=== PATIENT | female | born 1970 | race African-American/Black ===

== ENCOUNTER 2017-05-23 20:50 | Emergency (ER) | payer MEDICAID, SELFPAY ==
[2017-05-23 20:52] VITALS: BP 108/67; PULSE 94; RESP 14; TEMP 37.1; O2SAT 95; BMI 22.4
[2017-05-23] MEDS: LORazepam 1 MG Tablet PO (22:04)
[2017-05-23 22:36] LABS: Bacteria 0 SEEN /hpf (None Seen); Mucous, Urine 0 SEEN /hpf (<or=2+); Red Blood Cells-Urine 0 SEEN /hpf (0-5); Squamous Epithelial Cells - UA 0 SEEN /hpf (5-10); White Blood Cells 0 SEEN /hpf (0-5)
[2017-05-23 22:37] LABS: Color, Urine Yellow (Yellow); Glucose, Dipstick Normal (Normal); Ketone-Dipstick Negative (Negative); Leukocyte Esterase-Dipstick Negative /ul (Negative); Nitrite-Dipstick Negative (Negative); Occult Blood-Urine 25 /ul (Negative); Protein-Dipstick Negative (Negative); Specific Gravity, Urine 1.015 (1.002-1.030); Urine Bilirubin Dipstick Negative (Negative); Urine Clarity Clear (Clear); Urine Urobilinogen 1 mg/dl (Normal); Urine pH 6.5 (5.0 - 8.0)
--- NOTE | 2017-05-23 23:02 | CT_ITS ---
STUDY: CT ABDOMEN AND PELVIS WITHOUT CONTRAST REASON FOR EXAM: Female, 46 years old. Left flank pain, hematuria RADIATION DOSAGE (If Supplied By Facility): CTDIvol = ( 6.40 ) mGy, DLP = ( 297.34 ) mGycm TECHNIQUE: Transaxial images were obtained from the dome of the diaphragm to the symphysis pubis without oral contrast, and without intravenous contrast. Sagittal and coronal images were reconstructed. Individualized dose optimization techniques were used for this CT. COMPARISON: September 14, 2016. FINDINGS: The visualized lung bases are unremarkable. The visualized portions of the heart are within normal limits. Stable 1.2 cm probable cyst in the liver. Normal gallbladder and extrahepatic biliary system. Normal spleen. Normal pancreas. Normal bilateral adrenal glands. Stable probable extrarenal pelvis of the kidneys. No renal stones. Normal visualized stomach. Normal small intestine. Normal colon. The appendix is visualized and appears normal. Normal abdominal aorta. Normal inferior vena cava. Normal retroperitoneum. Normal urinary bladder. Normal abdominal wall. Normal osseous structures. CT/Abdomen/Pelvis without Cont IMPRESSION: Stable probable hepatic cyst. No hydronephrosis or renal calculi. Probable prominent extrarenal pelvis of the kidneys. Electronically Signed: Andreas Yo DO at 23:49 EDT Tel [phone], Service support ,
--- NOTE | 2017-05-24 00:24 | ED.VISSUMM ---
- ER Visit Summary Date of Service: 05/24/17 Chief Complaint: Blood in urine History of Present Illness: The patient is a 46 F who states that she has been feeling well for about a week. She notes some nausea. She notes some back discomfort mostly in the left side. She also states she seen some intermittent blood. She also has urinary frequency and is now having urinary incontinence. She states she has had several C-sections and hysterectomy. She is also states that as a child she had a ureteral/bladder surgery that she does not know exactly what they did. She went to the urgent care tonight they checked her urine and said that she had protein and blood in the urine sent to the emergency department. Physical Examination: Afebrile vital signs are stable Gen: Well-nourished well-developed Head: Normocephalic atraumatic Eyes: Perrl EOMI ENT: TMs clear no rhinorrhea moist mucous membranes Neck: Supple no lymphadenopathy no JVD nontender CVS: Regular rate rhythm no murmurs normal S1-S2 Respiratory: No distress clear to auscultation bilaterally chest nontender Abdomen: Soft nontender nondistended normal bowel sounds no masses Back: Nontender Extremity: Nontender no edema Skin: Normal color no rash Neuro: alert orientated ?3 CN II-XII intact normal strength sensation reflexes gait cerebellar Psych: Normal affect normal mood Test Results: Urinalysis is normal. CT abdomen pelvis does not demonstrate any acute findings Emergency Department Course and Treatment: I explained to the patient the difference between the DIP urine and a formal UA. She notes understanding. Given her urinary incontinence that seems to be worsening I suggested she follow-up with urology. She plans on seeing one that her friend is seen in the vagina. Impression: 1. Urinary incontinence This note was generated with [employer] dictation software. It may contain incorrect words, spelling, and punctuation that were not noted in review of the chart prior to signing ED Disposition - Plan for ED Patient: Disposition: Home or Assisted Living Chief Complaint: Flank Pain Instructions: ED Bladder Instability Female Referrals: Kaylin Correia, NIKA-C [Primary Care Provider] - As soon as possible
[2017-05-24 00:36] VITALS: RESP 16
== END 2017-05-24 00:36 | disposition home or self-care (01) ==
PROVIDERS: Emergency Provider Emergency Medicine; Family Provider Nurse Practitioner Family; PCP Nurse Practitioner Family
DX: R32 Unspecified urinary incontinence (principal); R11.0 Nausea; M54.9 Dorsalgia, unspecified; R35.0 Frequency of micturition; F41.9 Anxiety disorder, unspecified; M79.7 Fibromyalgia; Z90.710 Acquired absence of both cervix and uterus; Z79.82 Long term (current) use of aspirin; Z79.899 Other long term (current) drug therapy; Z72.0 Tobacco use
CPT/HCPCS: 74176; 81001; 99283

== ENCOUNTER 2017-05-30 03:39 | Emergency (ER) | payer MEDICAID, SELFPAY ==
[2017-05-30 03:40] VITALS: BP 118/69; PULSE 82; RESP 17; TEMP 36.4; O2SAT 99; BMI 24.7
--- NOTE | 2017-05-30 03:58 | ED.VISSUMM ---
- ER Visit Summary Date of Service: 05/30/17 Chief Complaint: I think I am going through withdrawal History of Present Illness: The patient is a 46 F who presents with concern for benzodiazepine withdrawal. She takes Klonopin. She states that she has been out for 2 days. She last had 60 tablets filled in February. She takes 0.5 mg per day. She has been out for 2 days because she missed her appointment with the counseling center. Today she felt anxious and shaky. She had a anxiety-induced seizure. 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 A family member was looking online and read about benzodiazepine withdrawal potential being life-threatening so EMS was called. The patient reports nausea and diarrhea over the last couple of days. Review of systems otherwise negative. No fever chest pain shortness of breath. Physical Examination: Afebrile vitals are normal normal blood pressure normal heart rate Skin normal no diaphoresis Alert and oriented she does not appear confused she is speaking clearly Patient is anxious and tearful Heart regular rate and rhythm Lungs are clear Abdomen soft Test Results: Not indicated Emergency Department Course and Treatment: Patient has been out of her Klonopin for 2 days and presents with normal vital signs and a benign physical examination. She is on a low dose at home. Based on clinical presentation I do not believe she has an acute benzodiazepine withdrawal. In regards to her seizures she does report a history of pseudoseizures which have been triggered by stress or anxiety. She does not have an epileptic disorder. There was no tongue biting or incontinence. She was given a dose of Klonopin here and advised to call the counseling center this morning. She understands to return for new or worsening symptoms. Treatment Plan: [] Disposition: Discharge Impression: Anxiety Pseudoseizures This note was generated with [employer] dictation software. It may contain incorrect words, spelling, and punctuation that were not noted in review of the chart prior to signing ED Disposition - Plan for ED Patient: Chief Complaint: Seizure Referrals: Kaylin Correia NP-C [Primary Care Provider] -
--- NOTE | 2017-05-30 04:01 | DCINST.ED_ITS ---
ED Disposition - Plan for ED Patient: Chief Complaint: Seizure Instructions: ED Panic Attack Referrals: Kaylin Correia, [employer]-C [Primary Care Provider] -
--- NOTE | 2017-05-30 04:01 | ED.DCSUM_ITS ---
- ER Visit Summary Date of Service: 05/30/17 Chief Complaint: I think I am going through withdrawal History of Present Illness: The patient is a 46 F who presents with concern for benzodiazepine withdrawal. She takes Klonopin. She states that she has been out for 2 days. She last had 60 tablets filled in February. She takes 0.5 mg per day. She has been out for 2 days because she missed her appointment with the counseling center. Today she felt anxious and shaky. She had a anxiety- induced seizure. 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 A family member was looking online and read about benzodiazepine withdrawal potential being life-threatening so EMS was called. The patient reports nausea and diarrhea over the last couple of days. Review of systems otherwise negative. No fever chest pain shortness of breath. Physical Examination: Afebrile vitals are normal normal blood pressure normal heart rate Skin normal no diaphoresis Alert and oriented she does not appear confused she is speaking clearly Patient is anxious and tearful Heart regular rate and rhythm Lungs are clear Abdomen soft Test Results: Not indicated Emergency Department Course and Treatment: Patient has been out of her Klonopin for 2 days and presents with normal vital signs and a benign physical examination. She is on a low dose at home. Based on clinical presentation I do not believe she has an acute benzodiazepine withdrawal. In regards to her seizures she does report a history of pseudoseizures which have been triggered by stress or anxiety. She does not have an epileptic disorder. There was no tongue biting or incontinence. She was given a dose of Klonopin here and advised to call the counseling center this morning. She understands to return for new or worsening symptoms. Treatment Plan: [] Disposition: Discharge Impression: Anxiety Pseudoseizures This note was generated with [employer] dictation software. It may contain incorrect words, spelling, and punctuation that were not noted in review of the chart prior to signing ED Disposition - Plan for ED Patient: Chief Complaint: Seizure Referrals: Kaylin Correia NP-C [Primary Care Provider] -
--- NOTE | 2017-05-30 04:01 | ED.DEP ---
ED Disposition - Plan for ED Patient: Chief Complaint: Seizure Instructions: ED Panic Attack Referrals: Kaylin Correia, REEL REPAIRER-C [Primary Care Provider] -
[2017-05-30] MEDS: clonazePAM 0.5 MG Tablet PO (04:12)
[2017-05-30 04:13] VITALS: BP 106/75; PULSE 83; RESP 32; O2SAT 96
== END 2017-05-30 04:28 | disposition home or self-care (01) ==
LOC: ED 04:20
PROVIDERS: Emergency Provider Emergency Medicine; Family Provider Nurse Practitioner Family; PCP Nurse Practitioner Family
DX: F41.9 Anxiety disorder, unspecified (principal); R56.9 Unspecified convulsions; Z72.0 Tobacco use; Z85.41 Personal history of malignant neoplasm of cervix uteri
CPT/HCPCS: 99284

== ENCOUNTER 2017-07-20 23:10 | Emergency (ER) | payer MEDICAID, SELFPAY ==
--- NOTE | 2017-07-20 23:10 | DT_ITS ---
This patient was seen during an EMR downtime July 15, 2017 - July 22, 2017. This patient may have a combination of paper and electronic documentation or all paper documentation. All documentation is viewable within the e-chart portion of [facility] for each patient visit.
== END 2017-07-20 23:15 | disposition home or self-care (01) ==
PROVIDERS: Emergency Provider Emergency Medicine; Family Provider Family Medicine; PCP Family Medicine
DX: G25.81 Restless legs syndrome (principal); F41.9 Anxiety disorder, unspecified; Z72.0 Tobacco use
CPT/HCPCS: 96372; 99282; J3486

== ENCOUNTER 2017-09-16 22:18 | Emergency (ER) | payer MEDICAID, SELFPAY ==
[2017-09-16 22:20] VITALS: BP 108/65; PULSE 89; RESP 18; TEMP 36.6; O2SAT 98; BMI 23.1
[2017-09-16] MEDS: Ketorolac 30 MG/ML Syringe IV (22:47)
--- NOTE | 2017-09-17 00:03 | ED.VISSUMM ---
- ER Visit Summary Date of Service: 09/17/17 Chief Complaint: Exacerbation of low back pain History of Present Illness: The patient is a 46 F who presents with exacerbation of low back pain that started 3 days ago. There is no history of trauma. She has no bowel bladder dysfunction. She denies any saddle paresthesia or anesthesia. She states she cannot walk. Of note her mother drove her here and she was able to get up on to the cot. She denies fever, chills night sweats. She denies any radicular pain. She does complain of bilateral hip pain. She denies rash. There is no history of trauma. She has had prior symptoms. She does have history of stress incontinence secondary to gynecologic surgery in the remote past. Physical Examination: Vital signs are normal. She is afebrile. When I entered the room she was on her elbows and knees with her buttocks up in the air. She states she was in this position because she cannot use her legs. HEENT exam is unremarkable. Heart is regular without murmur, gallop or rub. S1 and S2 are normal. Lungs are clear to auscultation with good movement of air bilaterally. Examination of the lower back reveals no evidence of scar. She has pain to palpation. She turned onto her back very slowly. Straight leg test elicited discomfort at 5? bilateral. Negative bowstring sign. EHL is intact. When asked to plantarflex her foot flickered and broke after minimal resistance. DP and PT pulses are palpable 2+. Patella and ankle reflex are 3+ and symmetric. There is no clonus and Babinski sign was negative bilaterally. Normal sensation. Please read written note for complete detail Test Results: None Emergency Department Course and Treatment: IV was established and she was treated with 30 mg Toradol. She was reassessed at 2400 and is lying on her left side smiling talking to friend and mother. She states her pain is markedly better. Treatment Plan: Discharge to home with follow-up as needed Disposition: Discharged home Impression: Exacerbation of bilateral low back pain without sciatica This note was generated with [employer] dictation software. It may contain incorrect words, spelling, and punctuation that were not noted in review of the chart prior to signing ED Disposition - Plan for ED Patient: Disposition: Home or Assisted Living Chief Complaint: Back Instructions: ED Neck Back Pain General Referrals: Rao Corona MD [Primary Care Provider] - As Needed Additional Instructions: Take either 4 Advil every 8 hours or 2 Aleve every 12 hours for the next 2-3 days for your discomfort. Avoid activity that causes you to have severe pain.
[2017-09-17 00:15] VITALS: BP 94/59; PULSE 60; RESP 16; O2SAT 97
== END 2017-09-17 00:17 | disposition home or self-care (01) ==
PROVIDERS: Emergency Provider Emergency Medicine; Family Provider Family Medicine; PCP Family Medicine
DX: M54.5 Low back pain (principal); F32.9 Major depressive disorder, single episode, unspecified; Z72.0 Tobacco use
CPT/HCPCS: 99285; A4216

== ENCOUNTER 2017-10-08 22:55 | Emergency (ER) | payer MEDICAID, SELFPAY ==
[2017-10-08 22:56] VITALS: BP 102/74; PULSE 84; RESP 16; TEMP 36.4; O2SAT 96; BMI 25.8
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
== END 2017-10-09 00:41 | disposition home or self-care (01) ==
PROVIDERS: Emergency Provider Emergency Medicine; Family Provider Family Medicine; PCP Family Medicine
DX: S09.90XA Unspecified injury of head, initial encounter (principal); S63.502A Unspecified sprain of left wrist, initial encounter; F41.9 Anxiety disorder, unspecified; M79.7 Fibromyalgia; Z72.0 Tobacco use; W20.8XXA Other cause of strike by thrown, projected or falling object, initial encounter; Y93.9 Activity, unspecified; Y92.89 Other specified places as the place of occurrence of the external cause; Y99.9 Unspecified external cause status
CPT/HCPCS: 70450; 73110; 99283

== ENCOUNTER 2018-01-06 23:18 | Emergency (ER) | payer MEDICAID, SELFPAY ==
[2018-01-06 23:19] VITALS: BP 101/56; PULSE 68; RESP 16; TEMP 36; O2SAT 97; BMI 26.2
--- NOTE | 2018-01-07 00:02 | ED.DCSUM_ITS ---
- ER Visit Summary Date of Service: 01/06/18 Chief Complaint: Back pain History of Present Illness: The patient is a 47 F who presents with back pain. She has a history of prior back pain. She reports a history of scoliosis and degenerative disc disease. She states that she had been sitting in a chair and when she went to stand up 2 days ago she developed increased lower back pain. This is relieved by bending forward and worse if she tries to stand up or sit up straight. She reports numbness tingling and pain radiating to the legs which she has had previously. No fevers abdominal pain urinary retention or fecal incontinence. No history of back surgeries or epidural injections. No fever. No fall. Physical Examination: Afebrile vitals are normal No distress Patient is lying upside down in the bed with her legs elevated up on the head of the bed as she states this is more comfortable position with her legs bent Heart is regular rate and rhythm Lungs clear Abdomen soft nontender nondistended 5/5 dorsiflexion, plantarflexion, extensor hallucis longus Test Results: Not indicated Emergency Department Course and Treatment: Patient was given intramuscular Toradol here. We will try a course of prednisone. Patient is agreeable to this plan. She understands to return for new or worsening symptoms. She has no signs or symptoms of serious surgical pathology such as epidural abscess or cauda equina syndrome based on current history and exam. Patient discharged. Treatment Plan: [] Disposition: Discharge Impression: Lumbosacral strain Lumbar radiculopathy This note was generated with [employer] dictation software. It may contain incorrect words, spelling, and punctuation that were not noted in review of the chart prior to signing ED Disposition - Plan for ED Patient: Chief Complaint: Back Referrals: Rao Corona MD [Primary Care Provider] -
--- NOTE | 2018-01-07 00:02 | ED.DEP ---
ED Disposition - Plan for ED Patient: Chief Complaint: Back Instructions: ED Sprain Strain Lumbar, ED Sciatica Prescriptions: Prednisone [Deltasone] 60 mg PO DAILY #15 tab Referrals: Rao Corona MD [Primary Care Provider] -
[2018-01-07] MEDS: Ketorolac 60 MG/2 ML Vial IM (00:03)
[2018-01-07 00:18] VITALS: BP 104/68; PULSE 71; RESP 18; O2SAT 97
--- OUTSIDE RECORDS SUMMARY | 2018-02-18 17:48 | XMS RPT_ITS ---
:1970 Author Organization OHIP Care Team Providers Name Role Phone GARRETDERECK JOSHUAVALENTINA ([facility]) Attending Unavailable DEANDRA BARRAGAN ([facility]) Attending Unavailable ARUNA HANLEY Attending Unavailable DEANDRA BARRAGAN ([facility]) Referring Unavailable ARUNA HANLEY Referring Unavailable ARUNA HANLEY Referring Unavailable SOFI CORONEL ([facility]) Attending Unavailable ARUNA HANLEY Referring Unavailable SOFI CORONEL ([facility]) Referring Unavailable ARUNA HANLEY Attending Unavailable ARUNA HANLEY Referring Unavailable ARUNA HANLEY Referring Unavailable ARUNA HANLEY Referring Unavailable MALAIKA STEVE (JOSE) Attending Unavailable Kaylin Rangel Primary Care Unavailable Wagner Porter Attending Unavailable Kaylin Rangel Primary Care Unavailable Agapito Grady Attending Unavailable Hamzah Loza Attending Unavailable Aruna Hanley Primary Care Unavailable Aruna Hanley Primary Care Unavailable Ariel Mac Attending Unavailable Aruna Hanley Primary Care Unavailable Ely Moreno Attending Unavailable Aruna Hanley Primary Care Unavailable Agapito Grady Attending Unavailable PROBLEMS PROBLEMS DATE TYPE CONDITION / CODE ATTENDING STATUS SOURCE 11/05/2017 Active 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 Repository / N60.19(ICD-10) 11/05/2017 Active Unknown / NA Active [facility] UNK(Unknown) [place] Repository 08/09/2017 Active Encounter for NA Active [facility] screening for [place] infections with a Repository predominantly sexual mode of transmission / Z11.3(ICD-10) 08/09/2017 Active Encounter for NA Active [facility] screening mammogram [place] for malignant Repository neoplasm of breast / Z12.31(ICD-10) 08/09/2017 Unknown G25.81 - Restless DagoHamzah Active [place] [facility] G25.81(ICD-10) Hospital Repository 06/03/2017 Active Encounter for Active [facility] therapeutic drug [place] level monitoring / Repository Z51.81(ICD-10) PROCEDURES PROCEDURES No Procedure Records FoundRESULTS RESULTS PROGRESS Observed: 01/22/2018 Status: COMPLETED Source: [place] 3[facility] RE[facility]IT[facility] HNO ID: [id number] Author: Zachery Steve Service: (none) Author Type: Physician Pediatric Allergist Type: Progress Notes Filed: 01/22/2018 4:14 PM Note Text: Chief Complaint Patient presents with: Recheck HPI Malaika Key is a 47 year old female who presents here today for Chronic Medical Conditions.. PTSD/Anxiety: Stable with current medications. Previously seen counseling center but Dr. Hanley has taken over care. Take clonazepam daily Migraines: ongoing for years. But has been worse over the past months. States her headaches last days. Multiple times a month. Gets photophobia and n/v. maxalt caused SEs- tremors and diseases RLS: could not tolerate medication.. Keeps her up at night. Smoking- <1/2 ppd. Didn't respond to treatments. Past medical history, appointments, medications, allergies reviewed. Previous Medical History PAST MEDICAL HISTORY Diagnosis Date - ANXIETY STATE NOS 02/18/2007 Pseudoseizures. - Anxiety state, unspecified 02/18/2007 - Arthritis - Arthritis - Congenital musculoskeletal deformity of spine - DDD (degenerative disc disease) 04/13/2009 - Degenerative disc disease - DEPRESSIVE DISORDER NEC 02/18/2007 Counselling Center: Schizoaffective, borderline personality, dissociative, PTSD. - Dysplasia of cervix, low grade (JON 1) 2009 - IDIOPATHIC SCOLIOSIS 2002 - Migraine 04/13/2009 - MYALGIA AND MYOSITIS NOS 2002 Fibromyalgia, Lumbago. - Personal history of alcoholism (HCC) - Pseudoseizure 04/01/2003 Video EEG - PTSD (post-traumatic stress disorder) - Scoliosis - Stroke (HCC) mild per pt - Vitamin D deficiency 04/14/2009 Previous Surgical History PAST SURGICAL HISTORY Procedure Laterality Date - DELIVERY ONLY , low cervical - DELIVERY ONLY , low cervical - DANDC, DIAG AND/OR THERAPEUTIC Dilation AND curettage - HYSTERECTOMY 2010 abnormal paps - LIGATE FALLOPIAN TUBE Tubal ligation - PAST SURGICAL HISTORY OF skin graft to ankle Family History FAMILY HISTORY Problem Relation Age of Onset - Adopted: Yes - Cancer Mother of pancreatic cancer - Diabetes Sister - Heart Brother Possibably has cancer as well Patient Allergies ALLERGIES Allergen Reactions - Dilaudid [Hydromorp* - Bactrim [Sulfametho* - Bees - Carbatral [Other] - Demerol [Meperidine* - Effexor [Venlafaxin* - Flexeril [Cyclobenz* Rash - Gabapentin Rash - Lactose - Lexapro [Escitalopr* - Naprosyn [Naproxen] Rash - Noraflex [Other] - Pexeva [Paroxetine] - Seroquel [Quetiapin* Rash - Tomato GI Upset Tomato sauce - Vistaril [Hydroxyzi* Current Medications Current Outpatient Prescriptions on File Prior to Visit: albuterol (PROVENTIL) 2.5 mg /3 mL (0.083 %) nebulizer solution Use 3 mL via nebulizer every 4 hours as needed for Wheezing/Shortness of Breath. Use over 5-15minutes. albuterol HFA (PROAIR HFA) 90 mcg/actuation inhaler Inhale 2 Puffs as instructed every 4 hours as needed. aspirin, enteric coated (ASPIRIN, ENTERIC COATED) 81 mg EC tablet Take 81 mg by mouth once daily. clonazePAM (KLONOPIN) 0.5 mg tablet TAKE 1 TABLET BY MOUTH TWICE DAILY Diaper,Brief, Adult,Disposable (DEPEND UNDERWEAR S-M) misc 1 Each twice daily as needed. mirtazapine (REMERON) 15 mg tablet Take 15 mg by mouth daily at bedtime. multivitamin tablet Take 1 tablet by mouth once daily. Nebulizer NEBULIZER FOR HOME USE. Asthma rizatriptan (MAXALT) 5 mg tablet Take 1 tablet by mouth as needed for Migraine Headache (see administration instructions). May repeat in 2 hours if needed sertraline (ZOLOFT) 50 mg tablet TAKE 1 TABLET BY MOUTH TWICE DAILY varenicline (CHANTIX CONTINUING MONTH BOX) 1 mg tablet Take 1 tablet by mouth twice daily. varenicline (CHANTIX STARTING MONTH BOX) 0.5 mg (11)- 1 mg (42) tablet Take 1 tablet (0.5 mg) by mouth once daily for 3 days, then 1 tablet (0.5 mg) twice daily for 4 days, then one tablet (1 mg) twice daily. No current facility-administered medications on file prior to visit. 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 She is sober as of 03/2007 Drug use: No Sexual activity: Yes Partners with: Male control/protection: Tubal Ligation Comment: hysterectomy also Social History Narrative , 4 kids Unemployed, BVR Review of Symptoms REVIEW OF SYSTEMS GENERAL: No weight loss, malaise or fevers NECK: Negative for lumps, goiter, pain and significant neck swelling RESPIRATORY: Negative for cough, hemoptysis, wheezing, COPD, dyspnea or shortness of breath CARDIOVASCULAR: Negative for chest pain, leg swelling, CHF or palpitations NEURO: SEE HPI EXAM: BP 118/78 Pulse 72 Resp 12 Wt 70.3 kg (155 lb) LMP 01/26/2010 BMI 25.21 kg/m? General Appearance: Well appearing, alert, in no acute distress, well-hydrated, well nourished.. Neck: Supple, no adenopathy; thyroid symmetric, normal size, no bruits. Lungs: lungs clear to auscultation. No wheezing, rhonchi, rales. Heart: RRR without murmur, gallop, or rubs. No ectopy. Extremities: No deformities, edema, Peripheral Pulses: Normal. Health Maintenance List DTAP,TDAP,TD(1 - Tdap) due on 12/03/1987 LIPID SCREEN due on 04/21/2014 DIABETES SCREEN due on 07/03/2018 MAMMOGRAM due on 08/09/2018 PAP EVERY 5 YEARS due on 08/09/2022 HPV EVERY 5 YEARS due on 08/09/2022 ONE PNEUMOVAX PRIOR TO AGE 65 Completed INFLUENZA Completed Data reviewed NA ASSESSMENT/PLAN: 1. Depression, unspecified depression type - ICD9: 311, ICD10: F32.9 (primary diagnosis) Continue current treatment. - CLONAZEPAM 0.5 MG TABLET - SERTRALINE 50 MG TABLET - CLONAZEPAM 0.5 MG TABLET - CLONAZEPAM 0.5 MG TABLET 2. PTSD (post-traumatic stress disorder) - ICD9: 309.81, ICD10: F43.10 Continue current treatment - CLONAZEPAM 0.5 MG TABLET - SERTRALINE 50 MG TABLET - CLONAZEPAM 0.5 MG TABLET - CLONAZEPAM 0.5 MG TABLET 3. Anxiety - ICD9: 300.00, ICD10: F41.9 As above - CLONAZEPAM 0.5 MG TABLET - SERTRALINE 50 MG TABLET - CLONAZEPAM 0.5 MG TABLET - CLONAZEPAM 0.5 MG TABLET 4. Migraine without aura and without status migrainosus, not intractable - ICD9: 346.10, ICD10: G43.009 Will try imitrex but discussed that imitrex may cause same SE as maxalt. Will get neuro opinion as well - CONSULT TO NEUROLOGY 5. Acute bronchitis, unspecified organism - ICD9: 466.0, ICD10: J20.9 Stable - ALBUTEROL SULFATE HFA 90 MCG/ACTUATION AEROSOL INHALER - ALBUTEROL SULFATE 2.5 MG/3 ML (0.083 %) SOLUTION FOR NEBULIZATION 6. Recurrent infections - ICD9: 136.9, ICD10: B99.9 Will get consult to pick up operator - CONSULT TO ALLERGY/IMMUNOLOGY 7. RLS (restless legs syndrome) - ICD9: 333.94, ICD10: G25.81 patient had side effects to medications for treatment. Will get neuro opinion. - CONSULT TO NEUROLOGY Follow up in 3 months for Routine visit with PCP MALAIKA STEVE PA-C PDMP website checked and validated. All prescriptions have been APPROPRIATELY filled. No suspicious activity was identified. 01/22/2018 by MALAIKA STEVE PA-C CNOV Observed: 01/22/2018 Status: COMPLETED Source: [place] 3:00 PM [facility] REPOSITORY Office Visit (FAMPWS) MAHAMEDMALAIKA RHOADES ([id number]) 1970 F Date Time Provider Department 01/22/18 3:00 PM NICOLETTE STEVE) FAMPWS During your visit today, we recorded the following information about you: Pulse Respiration Blood pressure Weight 72/minute 12/minute 118/78 70.3 kg MALAIKA STEVE PA-C 01/22/2018 4:14 PM Signed Chief Complaint Patient presents with: Recheck HPI Malaika Garcia Mahamed is a 47 year old female who presents here today for Chronic Medical Conditions.. PTSD/Anxiety: Stable with current medications. Previously seen counseling center but Dr. Hanley has taken over care. Take clonazepam daily Migraines: ongoing for years. But has been worse over the past months. States her headaches last days. Multiple times a month. Gets photophobia and n/v. maxalt caused SEs- tremors and diseases RLS: could not tolerate medication.. Keeps her up at night. Smoking- <1/2 ppd. Didn't respond to treatments. Past medical history, appointments, medications, allergies reviewed. Previous Medical History PAST MEDICAL HISTORY Diagnosis Date - ANXIETY STATE NOS 02/18/2007 Pseudoseizures. - Anxiety state, unspecified 02/18/2007 - Arthritis - Arthritis - Congenital musculoskeletal deformity of spine - DDD (degenerative disc disease) 04/13/2009 - Degenerative disc disease - DEPRESSIVE DISORDER NEC 02/18/2007 Counselling Center: Schizoaffective, borderline personality, dissociative, PTSD. - Dysplasia of cervix, low grade (JON 1) 2009 - IDIOPATHIC SCOLIOSIS 2002 - Migraine 04/13/2009 - MYALGIA AND MYOSITIS NOS 2002 Fibromyalgia, Lumbago. - Personal history of alcoholism (HCC) - Pseudoseizure 04/01/2003 Video EEG - PTSD (post-traumatic stress disorder) - Scoliosis - Stroke (HCC) mild per pt - Vitamin D deficiency 04/14/2009 Previous Surgical History PAST SURGICAL HISTORY Procedure Laterality Date - DELIVERY ONLY , low cervical - DELIVERY ONLY , low cervical - DANDC, DIAG AND/OR THERAPEUTIC Dilation AND curettage - HYSTERECTOMY 2010 abnormal paps - LIGATE FALLOPIAN TUBE Tubal ligation - PAST SURGICAL HISTORY OF skin graft to ankle Family History FAMILY HISTORY Problem Relation Age of Onset - Adopted: Yes - Cancer Mother of pancreatic cancer - Diabetes Sister - Heart Brother Possibably has cancer as well Patient Allergies ALLERGIES Allergen Reactions - Dilaudid [Hydromorp* - Bactrim [Sulfametho* - Bees - Carbatral [Other] - Demerol [Meperidine* - Effexor [Venlafaxin* - Flexeril [Cyclobenz* Rash - Gabapentin Rash - Lactose - Lexapro [Escitalopr* - Naprosyn [Naproxen] Rash - Noraflex [Other] - Pexeva [Paroxetine] - Seroquel [Quetiapin* Rash - Tomato GI Upset Tomato sauce - Vistaril [Hydroxyzi* Current Medications Current Outpatient Prescriptions on File Prior to Visit: albuterol (PROVENTIL) 2.5 mg /3 mL (0.083 %) nebulizer solution Use 3 mL via nebulizer every 4 hours as needed for Wheezing/Shortness of Breath. Use over 5-15minutes. albuterol HFA (PROAIR HFA) 90 mcg/actuation inhaler Inhale 2 Puffs as instructed every 4 hours as needed. aspirin, enteric coated (ASPIRIN, ENTERIC COATED) 81 mg EC tablet Take 81 mg by mouth once daily. clonazePAM (KLONOPIN) 0.5 mg tablet TAKE 1 TABLET BY MOUTH TWICE DAILY Diaper,Brief, Adult,Disposable (DEPEND UNDERWEAR S-M) misc 1 Each twice daily as needed. mirtazapine (REMERON) 15 mg tablet Take 15 mg by mouth daily at bedtime. multivitamin tablet Take 1 tablet by mouth once daily. Nebulizer NEBULIZER FOR HOME USE. Asthma rizatriptan (MAXALT) 5 mg tablet Take 1 tablet by mouth as needed for Migraine Headache (see administration instructions). May repeat in 2 hours if needed sertraline (ZOLOFT) 50 mg tablet TAKE 1 TABLET BY MOUTH TWICE DAILY varenicline (CHANTIX CONTINUING MONTH BOX) 1 mg tablet Take 1 tablet by mouth twice daily. varenicline (CHANTIX STARTING MONTH BOX) 0.5 mg (11)- 1 mg (42) tablet Take 1 tablet (0.5 mg) by mouth once daily for 3 days, then 1 tablet (0.5 mg) twice daily for 4 days, then one tablet (1 mg) twice daily. No current facility-administered medications on file prior to visit. 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 She is sober as of 03/2007 Drug use: No Sexual activity: Yes Partners with: Male control/protection: Tubal Ligation Comment: hysterectomy also Social History Narrative , 4 kids Unemployed, BVR Review of Symptoms REVIEW OF SYSTEMS GENERAL: No weight loss, malaise or fevers NECK: Negative for lumps, goiter, pain and significant neck swelling RESPIRATORY: Negative for cough, hemoptysis, wheezing, COPD, dyspnea or shortness of breath CARDIOVASCULAR: Negative for chest pain, leg swelling, CHF or palpitations NEURO: SEE HPI EXAM: BP 118/78 Pulse 72 Resp 12 Wt 70.3 kg (155 lb) LMP 01/26/2010 BMI 25.21 kg/m? General Appearance: Well appearing, alert, in no acute distress, well-hydrated, well nourished.. Neck: Supple, no adenopathy; thyroid symmetric, normal size, no bruits. Lungs: lungs clear to auscultation. No wheezing, rhonchi, rales. Heart: RRR without murmur, gallop, or rubs. No ectopy. Extremities: No deformities, edema, Peripheral Pulses: Normal. Health Maintenance List DTAP,TDAP,TD(1 - Tdap) due on 12/03/1987 LIPID SCREEN due on 04/21/2014 DIABETES SCREEN due on 07/03/2018 MAMMOGRAM due on 08/09/2018 PAP EVERY 5 YEARS due on 08/09/2022 HPV EVERY 5 YEARS due on 08/09/2022 ONE PNEUMOVAX PRIOR TO AGE 65 Completed INFLUENZA Completed Data reviewed NA ASSESSMENT/PLAN: 1. Depression, unspecified depression type - ICD9: 311, ICD10: F32.9 (primary diagnosis) Continue current treatment. - CLONAZEPAM 0.5 MG TABLET - SERTRALINE 50 MG TABLET - CLONAZEPAM 0.5 MG TABLET - CLONAZEPAM 0.5 MG TABLET 2. PTSD (post-traumatic stress disorder) - ICD9: 309.81, ICD10: F43.10 Continue current treatment - CLONAZEPAM 0.5 MG TABLET - SERTRALINE 50 MG TABLET - CLONAZEPAM 0.5 MG TABLET - CLONAZEPAM 0.5 MG TABLET 3. Anxiety - ICD9: 300.00, ICD10: F41.9 As above - CLONAZEPAM 0.5 MG TABLET - SERTRALINE 50 MG TABLET - CLONAZEPAM 0.5 MG TABLET - CLONAZEPAM 0.5 MG TABLET 4. Migraine without aura and without status migrainosus, not intractable - ICD9: 346.10, ICD10: G43.009 Will try imitrex but discussed that imitrex may cause same SE as maxalt. Will get neuro opinion as well - CONSULT TO NEUROLOGY 5. Acute bronchitis, unspecified organism - ICD9: 466.0, ICD10: J20.9 Stable - ALBUTEROL SULFATE HFA 90 MCG/ACTUATION AEROSOL INHALER - ALBUTEROL SULFATE 2.5 MG/3 ML (0.083 %) SOLUTION FOR NEBULIZATION 6. Recurrent infections - ICD9: 136.9, ICD10: B99.9 Will get consult to pick up operator - CONSULT TO ALLERGY/IMMUNOLOGY 7. RLS (restless legs syndrome) - ICD9: 333.94, ICD10: G25.81 patient had side effects to medications for treatment. Will get neuro opinion. - CONSULT TO NEUROLOGY Follow up in 3 months for Routine visit with PCP MALAIKA STEVE PA-C PDMP website checked and validated. All prescriptions have been APPROPRIATELY filled. No suspicious activity was identified. 01/22/2018 by MALAIKA STEVE PA-C Referring Provider: SELF [[id number]] Allergies As of Date: 01/22/2018 Noted Allergy Reaction DILAUDID (HYDROMORPHONE HCL) 02/18/2007 BACTRIM (SULFAMETHOXAZOLE-TRIMETH*02/18/2007 BEES 02/18/2007 carbatral [Other] 12/28/2005 DEMEROL (MEPERIDINE (PF)) 12/28/2005 EFFEXOR (VENLAFAXINE HCL) 12/28/2005 FLEXERIL (CYCLOBENZAPRINE HCL) 08/14/2011 2 - Rash GABAPENTIN 08/14/2011 2 - Rash LACTOSE 12/28/2005 LEXAPRO (ESCITALOPRAM OXALATE) 12/28/2005 NAPROSYN (NAPROXEN) 08/14/2011 2 - Rash noraflex [Other] 12/28/2005 PEXEVA (PAROXETINE) 02/18/2007 SEROQUEL (QUETIAPINE FUMARATE) 08/14/2011 2 - Rash TOMATO 06/27/2015 8 - GI Upset Comments: Tomato sauce VISTARIL (HYDROXYZINE HCL) 12/28/2005 Date Reviewed: 01/22/2018 Reviewed by: Lenka Perla Ma - Fully Assessed Reason for Visit: Recheck [92] Primary Visit Diagnosis:Depression, unspecified depression type [F32.9] Other Visit Diagnoses:PTSD (post-traumatic stress disorder) [F43.10] Anxiety [F41.9] Migraine without aura and without status migrainosus, not intractable [G43.009] Acute bronchitis, unspecified organism [J20.9] Recurrent infections [B99.9] RLS (restless legs syndrome) [G25.81] Order(s):albuterol HFA (PROAIR HFA) 90 mcg/actuation inhalerInhale 2 Puffs as instructed every 4 hours as needed.Disp: 1 InhalerRfl: 0 albuterol (PROVENTIL) 2.5 mg /3 mL (0.083 %) nebulizer solutionUse 3 mL via nebulizer every 4 hours as needed for Wheezing/Shortness of Breath. Use over 5-15minutes.Disp: 1 PackageRfl: 0 mirtazapine (REMERON) 15 mg tabletTake 1 tablet by mouth daily at bedtime.Disp: 30 tabletRfl: 3 sertraline (ZOLOFT) 50 mg tabletTake 1 tablet by mouth twice daily.Disp: 60 tabletRfl: 5 SUMAtriptan (IMITREX) 50 mg tabletTake 1 at onset of migraine. If no improvement in 2 hours repeat dose. Do not take more than 2 in a 24hr period.Disp: 6 tabletRfl: 1 CONSULT TO ALLERGY/IMMUNOLOGY [8941] Order #: [id number]: 1 CONSULT TO NEUROLOGY [7855] Order #: [id number]: 1 [START ON 03/23/2018] clonazePAM (KLONOPIN) 0.5 mg tabletTake 1 tablet by mouth twice daily for 30 days.Disp: 60 tabletRfl: 0 Prescriptions as of 01/22/2018 Sig: ALBUTEROL SULFATE 2.5 MG/3 ML* Use 3 mL via nebulizer every * ALBUTEROL SULFATE HFA 90 MCG/* Inhale 2 Puffs as instructed * ASPIRIN 81 MG TABLET,DELAYED * Take 81 mg by mouth once leslie* CLONAZEPAM 0.5 MG TABLET Take 1 tablet by mouth twice * DIAPER,BRIEF,ADULT,DISPOSABLE 1 Each twice daily as needed. MIRTAZAPINE 15 MG TABLET Take 1 tablet by mouth daily * MULTIVITAMIN TABLET Take 1 tablet by mouth once d* COMPOUNDED PRESCRIPTION NEBULIZER FOR HOME USE. Asth* SERTRALINE 50 MG TABLET Take 1 tablet by mouth twice * SUMATRIPTAN 50 MG TABLET Take 1 at onset of migraine. * Problem List As Of Date 01/22/2018 Noted Resolved Myalgia and myositis [NTD1668] INVALID FOR* More... IDIOPATHIC SCOLIOSIS [M41.20] INVALID FOR* DRUG ERUPTION///DRUG DERMATITIS NOS [L27.0] INVALID FOR* DYSCHROMIA UNSPECIFIED [L81.9] INVALID FOR* Anxiety State, Unspecified [F41.1] INVALID FOR* More... Depressive Disorder, not Elsewhere Classified [*INVALID FOR* More... DDD (Degenerative Disc Disease) [[id number]] INVALID FOR* Migraine [G43.909] INVALID FOR* Vitamin D Deficiency [E55.9] INVALID FOR* Fibrocystic breast disease [N60.19] INVALID FOR* Herpes simplex infection of genitourinary syste*INVALID FOR* More... Prescriptions ordered this encounter Disp Refills Start End ALBUTEROL SULFATE HFA 90 MCG/ACTUATI* 1 In* 0 01/22/2018 Route: INHALATION Sig: Inhale 2 Puffs as instructed every 4 hours as needed. ALBUTEROL SULFATE 2.5 MG/3 ML (0.083* 1 Pa* 0 01/22/2018 Route: NEBULIZATION Sig: Use 3 mL via nebulizer every 4 hours as needed for Wheezing/Shortness of Breath. Use over 5-15minutes. CLONAZEPAM 0.5 MG TABLET 60 t* 0 01/22/2018 01/22/2018 Class: Print RX Route: ORAL Sig: Take 1 tablet by mouth twice daily for 30 days. MIRTAZAPINE 15 MG TABLET 30 t* 3 01/22/2018 Route: ORAL Sig: Take 1 tablet by mouth daily at bedtime. SERTRALINE 50 MG TABLET 60 t* 5 01/22/2018 Route: ORAL Sig: Take 1 tablet by mouth twice daily. SUMATRIPTAN 50 MG TABLET 6 ta* 1 01/22/2018 Sig: Take 1 at onset of migraine. If no improvement in 2 hours repeat dose. Do not take more than 2 in a 24hr period. CLONAZEPAM 0.5 MG TABLET 60 t* 0 02/21/2018 01/22/2018 Class: Print RX Route: ORAL Sig: Take 1 tablet by mouth twice daily for 30 days. CLONAZEPAM 0.5 MG TABLET 60 t* 0 03/23/2018 04/22/2018 Class: Print RX Route: ORAL Sig: Take 1 tablet by mouth twice daily for 30 days. Medications Discontinued During This Encounter rizatriptan (MAXALT) 5 mg tablet 6 ta* 2 09/02/2017 01/22/2018 Route: ORAL Sig: Take 1 tablet by mouth as needed for Migraine Headache (see administration instructions). May repeat in 2 hours if needed Disc: Reason for discontinue is not on file. varenicline (CHANTIX CONTINUING LATRELL* 1 Pa* 2 10/02/2017 01/22/2018 Route: ORAL Sig: Take 1 tablet by mouth twice daily. Disc: Reason for discontinue is not on file. varenicline (CHANTIX STARTING MONTH * 53 t* 0 09/02/2017 01/22/2018 Sig: Take 1 tablet (0.5 mg) by mouth once daily for 3 days, then 1 tablet (0.5 mg) twice daily for 4 days, then one tablet (1 mg) twice daily. Disc: Reason for discontinue is not on file. albuterol HFA (PROAIR HFA) 90 mcg/ac* 1 In* 0 03/01/2017 01/22/2018 Route: INHALATION Sig: Inhale 2 Puffs as instructed every 4 hours as needed. Disc: Reason for discontinue is not on file. albuterol (PROVENTIL) 2.5 mg /3 mL (* 1 Pa* 0 03/01/2017 01/22/2018 Route: NEBULIZATION -UNSPEC Sig: Use 3 mL via nebulizer every 4 hours as needed for Wheezing/Shortness of Breath. Use over 5-15minutes. Disc: Reason for discontinue is not on file. clonazePAM (KLONOPIN) 0.5 mg tablet 60 t* 0 11/25/2017 01/22/2018 Class: Call Rx Sig: TAKE 1 TABLET BY MOUTH TWICE DAILY Disc: Reason for discontinue is not on file. mirtazapine (REMERON) 15 mg tablet 01/22/2018 Class: Historical Med Route: ORAL Sig: Take 15 mg by mouth daily at bedtime. Disc: Reason for discontinue is not on file. sertraline (ZOLOFT) 50 mg tablet 60 t* 5 08/01/2017 01/22/2018 Cmt: Please consider 90 day supplies to promote better adherence Route: ORAL Sig: TAKE 1 TABLET BY MOUTH TWICE DAILY Disc: Reason for discontinue is not on file. clonazePAM (KLONOPIN) 0.5 mg tablet 60 t* 0 01/22/2018 01/22/2018 Class: Print RX Route: ORAL Sig: Take 1 tablet by mouth twice daily for 30 days. Disc: Reason for discontinue is not on file. clonazePAM (KLONOPIN) 0.5 mg tablet 60 t* 0 02/21/2018 01/22/2018 Class: Print RX Route: ORAL Sig: Take 1 tablet by mouth twice daily for 30 days. Disc: Reason for discontinue is not on file. Disposition: Return in about 3 months (around 04/22/2018) for routine with Dr. Hanley. Follow-up and Disposition History Recorded Encounter Status:Closed by MALAIKA LUGO on 01/22/18 DISCHARGE INSTRUCTION Observed: 01/07/2018 Status: F Source: [facility] 12:03 AM [facility] REPOSITORY [facility] Medical Records Department [address] [place] [address] Discharge Instruction 01/07/18 0002 MR#: [id number] Acct: [id number] Name: MALAIKA KEY Rep #: [id number] : 1970 47 From: Agapito Grady MD PCP: Aruna Hanley MD Status: REG ER ED Disposition - Plan for ED Patient: Chief Complaint: Back Instructions: ED Sprain Strain Lumbar, ED Sciatica Prescriptions: Prednisone [Deltasone] 60 mg PO DAILY #15 tab Referrals: Aruna Hanley MD [Primary Care Provider] - What to do if you have Problems For any increased pain, shortness of breath, bleeding, nausea or vomiting, chest pain, or any unexpected problems, contact your Primary Care Provider. Call [email or web address] [facility] ([phone]) or report to the closest Emergency Room. Call 911 if necessary. 01/07/18 0003 <Electronically signed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 mother drove her here and she was able to get up on to the cot. She denies fever, chills night sweats. She denies any radicular pain. She does complain of bilateral hip pain. She denies rash. There is no history of trauma. She has had prior symptoms. She does have history of stress incontinence secondary to gynecologic surgery in the remote past. Physical Examination: Vital signs are normal. She is afebrile. When I entered the room she was on her elbows and knees with her buttocks up in the air. She states she was in this position because she cannot use her legs. HEENT exam is unremarkable. Heart is regular without murmur, gallop or rub. S1 and S2 are normal. Lungs are clear to auscultation with good movement of air bilaterally. Examination of the lower back reveals no evidence of scar. She has pain to palpation. She turned onto her back very slowly. Straight leg test elicited discomfort at 5 bilateral. Negative bowstring sign. EHL is intact. When asked to plantarflex her foot flickered and broke after minimal resistance. DP and PT pulses are palpable 2+. Patella and ankle reflex are 3+ and symmetric. There is no clonus and Babinski sign was negative bilaterally. Normal sensation. Please read written note for complete detail Test Results: None Emergency Department Course and Treatment: IV was established and she was treated with 30 mg Toradol. She was reassessed at 2400 and is lying on her left side smiling talking to friend and mother. She states her pain is markedly better. Treatment Plan: Discharge to home with follow-up as needed Disposition: Discharged home Impression: Exacerbation of bilateral low back pain without sciatica This note was generated with Mobifusion dictation software. It may contain incorrect words, spelling, and punctuation that were not noted in review of the chart prior to signing ED Disposition - Plan for ED Patient: Disposition: Home or Assisted Living Chief Complaint: Back Instructions: ED Neck Back Pain General Referrals: Aruna Hanley MD [Primary Care Provider] - As Needed Additional Instructions: Take either 4 Advil every 8 hours or 2 Aleve every 12 hours for the next 2-3 days for your discomfort. Avoid activity that causes you to have severe pain. What to do if you have Problems For any increased pain, shortness of breath, bleeding, nausea or vomiting, chest pain, or any unexpected problems, contact your Primary Care Provider. Call [facility] ([phone]) or report to the closest Emergency Room. Call 911 if necessary. 09/17/17 0008 <Electronically signed by Ariel Mac MD> Date Ariel Mac MD Cosigner Signature (If Indicated): Date CC: Aruna Hanley MD PROGRESS Observed: 09/02/2017 Status: COMPLETED Source: [place] 3:42 PM [facility] REPOSITORY HNO ID: [id number] Author: Aruna Hanley Service: (none) Author Type: Physician Type: Progress Notes Filed: 09/03/2017 10:04 AM Note Text: Chief Complaint Patient presents with: F/U 3 Month: Migraine, Anxiety/Depression and PTSD HPI Malaika Key is a 46 year old female who presents here today for a 3 mo f/u. PTSD/Anxiety - Stable with use of medications. Does have pseudoseizures when anxiety/PTSD symptoms become worse. Current regimen of Zoloft 50 mg 1 tab po bid, Klonopin and 0.5 mg 1 tab po bid. [facility] but due to missing an appt, they wouldn't refill her meds. Migraines - Ongoing for years, but worse in the last 5 days and continuous over the last 5 days. Has light and sound sensitivity with nausea. Pain is 10/10 and migraine produced a seizure. Unable to tolerate Imitrex previously. Excedrin is not working. Had question about a cyst on previous MRI causing migraines. Smoking - Patches did not work and made smoking worse. Currently smoking 1 ppd. Wellbutrin did not work for her. Past medical history, appointments, medications, allergies reviewed. Previous Medical History PAST MEDICAL HISTORY Diagnosis Date - ANXIETY STATE NOS 02/18/2007 Pseudoseizures. - Anxiety state, unspecified 02/18/2007 - Arthritis - Arthritis - Congenital musculoskeletal deformity of spine - DDD (degenerative disc disease) 04/13/2009 - Degenerative disc disease - DEPRESSIVE DISORDER NEC 02/18/2007 [facility]: Schizoaffective, borderline personality, dissociative, PTSD. - Dysplasia of cervix, low grade (JON 1) 2009 - IDIOPATHIC SCOLIOSIS 2002 - Migraine 04/13/2009 - MYALGIA AND MYOSITIS NOS 2002 Fibromyalgia, Lumbago. - Personal history of alcoholism (HCC) - Pseudoseizure 04/01/2003 Video EEG - PTSD (post-traumatic stress disorder) - Scoliosis - Stroke (HCC) mild per pt - Vitamin D deficiency 04/14/2009 Previous Surgical History PAST SURGICAL HISTORY Procedure Laterality Date - DELIVERY ONLY , low cervical - DELIVERY ONLY , low cervical - DANDC, DIAG AND/OR THERAPEUTIC Dilation AND curettage - HYSTERECTOMY 2010 abnormal paps - LIGATE FALLOPIAN TUBE Tubal ligation - PAST SURGICAL HISTORY OF skin graft to ankle Family History FAMILY HISTORY Problem Relation Age of Onset - Adopted: Yes - Cancer Mother of pancreatic cancer - Diabetes Sister - Heart Brother Possibably has cancer as well Patient Allergies ALLERGIES Allergen Reactions - Dilaudid [Hydromorp* - Bactrim [Sulfametho* - Bees - Carbatral [Other] - Demerol [Meperidine* - Effexor [Venlafaxin* - Flexeril [Cyclobenz* Rash - Gabapentin Rash - Lactose - Lexapro [Escitalopr* - Naprosyn [Naproxen] Rash - Noraflex [Other] - Pexeva [Paroxetine] - Seroquel [Quetiapin* Rash - Tomato GI Upset Tomato sauce - Vistaril [Hydroxyzi* Current Medications Current Outpatient Prescriptions on File Prior to Visit: sertraline (ZOLOFT) 50 mg tablet TAKE 1 TABLET BY MOUTH TWICE DAILY multivitamin tablet Take 1 tablet by mouth once daily. clonazePAM (KLONOPIN) 0.5 mg tablet Take 1 tablet by mouth twice daily for 90 days. Nebulizer NEBULIZER FOR HOME USE. Asthma albuterol (PROVENTIL) 2.5 mg /3 mL (0.083 %) nebulizer solution Use 3 mL via nebulizer every 4 hours as needed for Wheezing/Shortness of Breath. Use over 5-15minutes. albuterol HFA (PROAIR HFA) 90 mcg/actuation inhaler Inhale 2 Puffs as instructed every 4 hours as needed. aspirin, enteric coated (ASPIRIN, ENTERIC COATED) 81 mg EC tablet Take 81 mg by mouth once daily. mirtazapine (REMERON) 15 mg tablet Take 15 mg by mouth daily at bedtime. No current facility-administered medications on file prior to visit. 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 She is sober as of 03/2007 Drug use: No Sexual activity: Yes Partners with: Male control/protection: Tubal Ligation Comment: hysterectomy also Social History Narrative , 4 kids Unemployed, BVR EXAM: BP 100/74 (BP Site: Left Arm, BP Position: Sitting, BP Cuff Size: Regular Adult) Pulse 68 Resp 16 Wt 65 kg (143 lb 6.4 oz) LMP 01/26/2010 BMI 23.32 kg/m? General Appearance: Well appearing, alert, in no acute distress, well-hydrated, well nourished.. Neck: Supple, no adenopathy; thyroid symmetric, normal size, no bruits. Lungs: Lungs clear to auscultation. No wheezing, rhonchi, rales. Heart: RRR without murmur, gallop, or rubs. No ectopy. Health Maintenance List DTAP,TDAP,TD(1 - Tdap) due on 12/03/1987 LIPID SCREEN due on 04/21/2014 INFLUENZA(1) due on 10/12/2017 DIABETES SCREEN due on 07/03/2018 MAMMOGRAM due on 08/09/2018 PAP EVERY 5 YEARS due on 08/09/2022 HPV EVERY 5 YEARS due on 08/09/2022 ONE PNEUMOVAX PRIOR TO AGE 65 Completed Data reviewed Multiple labs ASSESSMENT/PLAN: 1. Migraine without aura, not intractable, with status migrainosus - ICD9: 346.12, ICD10: G43.001 (primary diagnosis) [facility] 2. PTSD (post-traumatic stress disorder) - ICD9: 309.81, ICD10: F43.10 Continue current medications. 3. LAKISHA (generalized anxiety disorder) - ICD9: 300.02, ICD10: F41.1 Continue current medications. 4. Urge incontinence of urine - ICD9: 788.31, ICD10: N39.41 Continue current medications. Chantix for smoking 3 mo f/u Aruna Hanley MD The documentation for this note was completed by Denise Joseph Ma acting as scribe for Aruna Hanley MD. September 02, 2017 3:43 PM. CNOV Observed: 09/02/2017 Status: COMPLETED Source: [place] 3:40 PM [facility] REPOSITORY Office Visit (FAMPWS) MALAIKA KEY ([id number]) 1970 F Date Time Provider Department 09/02/17 3:40 PM ARUNA HANLEY During your visit today, we recorded the following information about you: Pulse Respiration Blood pressure Weight 68/minute 16/minute 100/74 65 kg Aruna Hanley MD 09/03/2017 10:04 AM Signed Chief Complaint Patient presents with: F/U 3 Month: Migraine, Anxiety/Depression and PTSD HPI Malaika Key is a 46 year old female who presents here today for a 3 mo f/u. PTSD/Anxiety - Stable with use of medications. Does have pseudoseizures when anxiety/PTSD symptoms become worse. Current regimen of Zoloft 50 mg 1 tab po bid, Klonopin and 0.5 mg 1 tab po bid. [facility] but due to missing an appt, they wouldn't refill her meds. Migraines - Ongoing for years, but worse in the last 5 days and continuous over the last 5 days. Has light and sound sensitivity with nausea. Pain is 10/10 and migraine produced a seizure. Unable to tolerate Imitrex previously. Excedrin is not working. Had question about a cyst on previous MRI causing migraines. Smoking - Patches did not work and made smoking worse. Currently smoking 1 ppd. Wellbutrin did not work for her. Past medical history, appointments, medications, allergies reviewed. Previous Medical History PAST MEDICAL HISTORY Diagnosis Date - ANXIETY STATE NOS 02/18/2007 Pseudoseizures. - Anxiety state, unspecified 02/18/2007 - Arthritis - Arthritis - Congenital musculoskeletal deformity of spine - DDD (degenerative disc disease) 04/13/2009 - Degenerative disc disease - DEPRESSIVE DISORDER NEC 02/18/2007 [facility]: Schizoaffective, borderline personality, dissociative, PTSD. - Dysplasia of cervix, low grade (JON 1) 2009 - IDIOPATHIC SCOLIOSIS 2002 - Migraine 04/13/2009 - MYALGIA AND MYOSITIS NOS 2002 Fibromyalgia, Lumbago. - Personal history of alcoholism (HCC) - Pseudoseizure 04/01/2003 Video EEG - PTSD (post-traumatic stress disorder) - Scoliosis - Stroke (HCC) mild per pt - Vitamin D deficiency 04/14/2009 Previous Surgical History PAST SURGICAL HISTORY Procedure Laterality Date - DELIVERY ONLY , low cervical - DELIVERY ONLY , low cervical - DANDC, DIAG AND/OR THERAPEUTIC Dilation AND curettage - HYSTERECTOMY 2010 abnormal paps - LIGATE FALLOPIAN TUBE Tubal ligation - PAST SURGICAL HISTORY OF skin graft to ankle Family History FAMILY HISTORY Problem Relation Age of Onset - Adopted: Yes - Cancer Mother of pancreatic cancer - Diabetes Sister - Heart Brother Possibably has cancer as well Patient Allergies ALLERGIES Allergen Reactions - Dilaudid [Hydromorp* - Bactrim [Sulfametho* - Bees - Carbatral [Other] - Demerol [Meperidine* - Effexor [Venlafaxin* - Flexeril [Cyclobenz* Rash - Gabapentin Rash - Lactose - Lexapro [Escitalopr* - Naprosyn [Naproxen] Rash - Noraflex [Other] - Pexeva [Paroxetine] - Seroquel [Quetiapin* Rash - Tomato GI Upset Tomato sauce - Vistaril [Hydroxyzi* Current Medications Current Outpatient Prescriptions on File Prior to Visit: sertraline (ZOLOFT) 50 mg tablet TAKE 1 TABLET BY MOUTH TWICE DAILY multivitamin tablet Take 1 tablet by mouth once daily. clonazePAM (KLONOPIN) 0.5 mg tablet Take 1 tablet by mouth twice daily for 90 days. Nebulizer NEBULIZER FOR HOME USE. Asthma albuterol (PROVENTIL) 2.5 mg /3 mL (0.083 %) nebulizer solution Use 3 mL via nebulizer every 4 hours as needed for Wheezing/Shortness of Breath. Use over 5-15minutes. albuterol HFA (PROAIR HFA) 90 mcg/actuation inhaler Inhale 2 Puffs as instructed every 4 hours as needed. aspirin, enteric coated (ASPIRIN, ENTERIC COATED) 81 mg EC tablet Take 81 mg by mouth once daily. mirtazapine (REMERON) 15 mg tablet Take 15 mg by mouth daily at bedtime. No current facility-administered medications on file prior to visit. 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 She is sober as of 03/2007 Drug use: No Sexual activity: Yes Partners with: Male control/protection: Tubal Ligation Comment: hysterectomy also Social History Narrative , 4 kids Unemployed, BVR EXAM: BP 100/74 (BP Site: Left Arm, BP Position: Sitting, BP Cuff Size: Regular Adult) Pulse 68 Resp 16 Wt 65 kg (143 lb 6.4 oz) LMP 01/26/2010 BMI 23.32 kg/m? General Appearance: Well appearing, alert, in no acute distress, well-hydrated, well nourished.. Neck: Supple, no adenopathy; thyroid symmetric, normal size, no bruits. Lungs: Lungs clear to auscultation. No wheezing, rhonchi, rales. Heart: RRR without murmur, gallop, or rubs. No ectopy. Health Maintenance List DTAP,TDAP,TD(1 - Tdap) due on 12/03/1987 LIPID SCREEN due on 04/21/2014 INFLUENZA(1) due on 10/12/2017 DIABETES SCREEN due on 07/03/2018 MAMMOGRAM due on 08/09/2018 PAP EVERY 5 YEARS due on 08/09/2022 HPV EVERY 5 YEARS due on 08/09/2022 ONE PNEUMOVAX PRIOR TO AGE 65 Completed Data reviewed Multiple labs ASSESSMENT/PLAN: 1. Migraine without aura, not intractable, with status migrainosus - ICD9: 346.12, ICD10: G43.001 (primary diagnosis) [facility] 2. PTSD (post-traumatic stress disorder) - ICD9: 309.81, ICD10: F43.10 Continue current medications. 3. LAKISHA (generalized anxiety disorder) - ICD9: 300.02, ICD10: F41.1 Continue current medications. 4. Urge incontinence of urine - ICD9: 788.31, ICD10: N39.41 Continue current medications. Chantix for smoking 3 mo f/u Aruna Hanley MD The documentation for this note was completed by Denise Joseph Ma acting as scribe for Aruna Hanley MD. September 02, 2017 3:43 PM. Referring Provider: ARUNA HANLEY [[id number]] Allergies As of Date: 09/02/2017 Noted Allergy Reaction DILAUDID (HYDROMORPHONE HCL) 02/18/2007 BACTRIM (SULFAMETHOXAZOLE-TRIMETH*02/18/2007 BEES 02/18/2007 carbatral [Other] 12/28/2005 DEMEROL (MEPERIDINE (PF)) 12/28/2005 EFFEXOR (VENLAFAXINE HCL) 12/28/2005 FLEXERIL (CYCLOBENZAPRINE HCL) 08/14/2011 2 - Rash GABAPENTIN 08/14/2011 2 - Rash LACTOSE 12/28/2005 LEXAPRO (ESCITALOPRAM OXALATE) 12/28/2005 NAPROSYN (NAPROXEN) 08/14/2011 2 - Rash noraflex [Other] 12/28/2005 PEXEVA (PAROXETINE) 02/18/2007 SEROQUEL (QUETIAPINE FUMARATE) 08/14/2011 2 - Rash TOMATO 06/27/2015 8 - GI Upset Comments: Tomato sauce VISTARIL (HYDROXYZINE HCL) 12/28/2005 Date Reviewed: 09/02/2017 Reviewed by: Denise Joseph Ma - Fully Assessed Reason for Visit: F/U 3 Month [443] Cmt: Migraine, Anxiety/Depression and PTSD Primary Visit Diagnosis:Migraine without aura, not intractable, with status migrainosus [G43.001] Other Visit Diagnoses:PTSD (post-traumatic stress disorder) [F43.10] LAKISHA (generalized anxiety disorder) [F41.1] Urge incontinence of urine [N39.41] Order(s):rizatriptan (MAXALT) 5 mg tabletTake 1 tablet by mouth as needed for Migraine Headache (see administration instructions). May repeat in 2 hours if neededDisp: 6 tabletRfl: 2 varenicline (CHANTIX STARTING MONTH BOX) 0.5 mg (11)- 1 mg (42) tabletTake 1 tablet (0.5 mg) by mouth once daily for 3 days, then 1 tablet (0.5 mg) twice daily for 4 days, then one tablet (1 mg) twice daily.Disp: 53 tabletRfl: 0 [START ON 10/02/2017] varenicline (CHANTIX CONTINUING MONTH BOX) 1 mg tabletTake 1 tablet by mouth twice daily.Disp: 1 PackageRfl: 2 Diaper,Brief, Adult,Disposable (DEPEND UNDERWEAR S-M) misc1 Each twice daily as needed.Disp: 60 EachRfl: 5 Prescriptions as of 09/02/2017 Sig: SERTRALINE 50 MG TABLET TAKE 1 TABLET BY MOUTH TWICE * MULTIVITAMIN TABLET Take 1 tablet by mouth once d* CLONAZEPAM 0.5 MG TABLET Take 1 tablet by mouth twice * COMPOUNDED PRESCRIPTION NEBULIZER FOR HOME USE. Asth* ALBUTEROL SULFATE 2.5 MG/3 ML* Use 3 mL via nebulizer every * ALBUTEROL SULFATE HFA 90 MCG/* Inhale 2 Puffs as instructed * ASPIRIN 81 MG TABLET,DELAYED * Take 81 mg by mouth once leslie* MIRTAZAPINE 15 MG TABLET Take 15 mg by mouth daily at * RIZATRIPTAN 5 MG TABLET Take 1 tablet by mouth as nee* VARENICLINE 0.5 MG (11)-1 MG * Take 1 tablet (0.5 mg) by tamika* VARENICLINE 1 MG TABLET Take 1 tablet by mouth twice * DIAPER,BRIEF,ADULT,DISPOSABLE 1 Each twice daily as needed. Problem List As Of Date 09/02/2017 Noted Resolved Myalgia and myositis [[id number]] INVALID FOR* More... IDIOPATHIC SCOLIOSIS [M41.20] INVALID FOR* DRUG ERUPTION///DRUG DERMATITIS NOS [L27.0] INVALID FOR* DYSCHROMIA UNSPECIFIED [L81.9] INVALID FOR* Anxiety State, Unspecified [F41.1] INVALID FOR* More... Depressive Disorder, not Elsewhere Classified [*INVALID FOR* More... DDD (Degenerative Disc Disease) [TNL7407] INVALID FOR* Migraine [G43.909] INVALID FOR* Vitamin D Deficiency [E55.9] INVALID FOR* Fibrocystic breast disease [N60.19] INVALID FOR* Herpes simplex infection of genitourinary syste*INVALID FOR* More... Prescriptions ordered this encounter Disp Refills Start End RIZATRIPTAN 5 MG TABLET 6 ta* 2 09/02/2017 Route: ORAL Sig: Take 1 tablet by mouth as needed for Migraine Headache (see administration instructions). May repeat in 2 hours if needed VARENICLINE 0.5 MG (11)-1 MG (42) TA* 53 t* 0 09/02/2017 Sig: Take 1 tablet (0.5 mg) by mouth once daily for 3 days, then 1 tablet (0.5 mg) twice daily for 4 days, then one tablet (1 mg) twice daily. VARENICLINE 1 MG TABLET 1 Pa* 2 10/02/2017 Route: ORAL Sig: Take 1 tablet by mouth twice daily. DIAPER,BRIEF,ADULT,DISPOSABLE 60 E* 5 09/02/2017 Route: Misc Si Each twice daily as needed. Medications Discontinued During This Encounter nicotine (NICODERM) 7 mg/24 hr 30 P* 2 06/03/2017 09/02/2017 Route: TRANSDERMAL Sig: Apply 1 Patch as directed every 24 hours. Disc: Discontinued by Patient albuterol (PROVENTIL) 5 mg/mL nebu 0.5 * 0 03/02/2017 09/02/2017 Class: Back Office Route: INHALATION Sig: Inhale 0.5 mL as instructed one time only for 1 dose. 1 DOSE NOW - BACK OFFICE. PLACE 0.5 ML PER DROPPER AND 2.5 ML OF NORMAL SALINE INTO RESERVOIR. Disc: Course of therapy completed Disposition: Return in about 3 months (around 12/03/2017). Follow-up and Disposition History Recorded Encounter Status:Closed by ARUNA HANLEY MD on 09/03/17 FELIPA Observed: 08/19/2017 Status: COMPLETED Source: [place] 12:00 AM [facility] REPOSIT[facility] Letter Text Sofi Coronel CNM [facility] [address] [place], [place] [address] Malaika Key [address] [place] [id number] 08/19/2017 [facility]: [id number] Dear Malaika, We are pleased to inform you that your recent Pap Test was within normal limits. Because Pap tests are so effective in the early detection of cervical cancer, you are encouraged to continue having the test at regular intervals. You will be due for a 1 year Gynecological Exam after this date 08/09/2017. If you have any questions regarding the above information, do not hesitate to call our office at between the hours of 8:00 a.m. and 5:00 p.m. Sincerely, MARTHA Fan Observed: 08/09/2017 Status: COMPLETED Source: [place] 6:28 PM [facility] REPOSITORY HNO ID: [id number] Author: Mammography Coordinator Service: (none) Author Type: Physician Type: Letter Filed: 08/12/2017 11:33 PM Note Text: August 09, 2017 PID: [id number] Malaika Key [address] [place] [address] Dear Ms. Key, Your recent breast imaging exam on 08/09/2017 showed a possible finding that requires additional imaging studies for a complete evaluation. Most such findings are probably benign (not cancer). Please call [phone] or [phone] to schedule an appointment for your additional imaging if you have not already done so. Your mammogram demonstrates that you have dense breast tissue, which could hide abnormalities. Dense breast tissue, in and of itself, is a relatively common condition. Therefore, this information is not provided to cause undue concern; rather, it is to raise your awareness and promote discussion with your health care provider regarding the presence of dense breast tissue in addition to other risk factors. Your breast images and report will be kept on file here as part of your permanent medical record and are available for your continuing care. Thank you for allowing us to help in meeting your health care needs. Sincerely, Dr. Nolan Interpreting Radiologist [facility] (Additional imaging) HEPATITIS B SURF. AG Collected: 08/09/2017 Status: F Source: [place] 10:58 AM [facility] REPOSITORY TYPE CODE TESTS RESULT OUT OF REFERENCE UNITS RANGE LAB HBSAG Negative Hepatitis B Negative Surf. Ag Performed By: #### HBSAG, HIV12C, SYPHGX, HCQPCR, HSVG12, HSVM #### [facility] [address] [place], [place] [id number] HIV 12 COMBO (AG/AB) Collected: 08/09/2017 Status: F Source: [place] 10:58 AM [facility] REPOSITORY TYPE CODE TESTS RESULT OUT OF REFERENCE UNITS RANGE LAB HVAGAB Non Reactive HIV Non Reactive 12 Ag/Ab Result Comment: (NOTE) HIV Information: [place] Rev. Code 3701.243(E): This information has been disclosed to you from confidential records protected from disclosure by state law. You shall make no further disclosure of this information without the specific, written, and informed release of the individual to whom it pertains, or as otherwise permitted by state law. A general authorization for the release of medical or other information is not sufficient for the purpose of the release of HIV test results or diagnoses. Performed By: #### HBSAG, HIV12C, SYPHGX, HCQPCR, HSVG12, HSVM #### [facility] [employer] [address] [place] [address] SYPHILIS IGG WITH Collected: 08/09/2017 Status: F Source: [facility] 10:58 AM [facility] REPOSITORY TYPE CODE TESTS RESULT OUT OF REFERENCE UNITS RANGE LAB SYPHQL Nonreactive Syphilis IgG, Nonreactive Qual Result Comment: In conjunction with this result, the immune status of the patient should be evaluated based on their clinical status, related risk factors, and other diagnostic test results. LAB SYPHLG AI Syphilis IgG <0.2 Result Comment: Antibody index is interpreted as follows: Non reactive SPECIMENS <=0.8 Weak reactive SPECIMENS 0.9 to 5.9 Reactive SPECIMENS >=6.0 Performed By: #### HBSAG, HIV12C, SYPHGX, HCQPCR, HSVG12, HSVM #### [place] [id number] [place] [address] HEPATITIS C RNA Collected: 08/09/2017 Status: F Source: [place] 10:58 AM [facility] REPOSITORY TYPE CODE TESTS RESULT OUT OF REFERENCE UNITS RANGE LAB HCQPCR IU/mL Hepatitis C RNA HCV RNA not detected by PCR. Result Comment: Reference Range: Negative for HCV RNA The Linear Range of this assay is 15 IU/mL to 100,000,000 IU/mL. Performed By: #### HBSAG, HIV12C, SYPHGX, HCQPCR, HSVG12, HSVM #### [place] [id number] [place] [address] HSVG TYP 1 AND 2 Collected: 08/09/2017 Status: F Source: [facility] 10:58 AM [facility] REPOSITORY TYPE CODE TESTS RESULT OUT OF RANGE REFERENCE UNITS LAB HSVG1L Negative HSV IgG Abnormal 1 Qualitative Positive Alert Result Comment: IgG antibody to HSV-1 detected LAB HSVG1 AI Herpes Simplex IgG 1 3.7 Result Comment: INDEX VALUES ARE INTERPRETED FOLLOWS: NEGATIVE SPECIMENS <0.9 EQUIVOCAL SPECIMENS 0.9 TO 1.0 POSITIVE SPECIMENS >=1.1 LAB HSVG2L Negative Abnormal HSV IgG 2 Alert Qualitative Positive Result Comment: IgG antibody to HSV-2 detected LAB HSVG2 AI Herpes Simplex IgG 2 >8.0 Result Comment: INDEX VALUES ARE INTERPRETED FOLLOWS: NEGATIVE SPECIMENS <0.9 EQUIVOCAL SPECIMENS 0.9 TO 1.0 POSITIVE SPECIMENS >=1.1 Performed By: #### HBSAG, HIV12C, SYPHGX, HCQPCR, HSVG12, HSVM #### [facility] [employer] [facility] [place] [address] HERPES SIMPLEX IGM Collected: 08/09/2017 Status: F Source: [facility] 10:58 AM [facility] REPOSITORY TYPE CODE TESTS RESULT OUT OF REFERENCE UNITS RANGE LAB HSVMR Negative HSV IgM Qualitative Negative Result Comment: No significant amount of IgM antibodies to HSV-1 or HSV-2 detected. Negative result indicates no current or reactivated infection with HSV-1 or HSV-2. LAB HSVMX 0-0.90 OD Ratio Herpes Simplex 0.55 IgM Result Comment: INDEX VALUES/OD RATIOS ARE INTERPRETED FOLLOWS: NEGATIVE SPECIMENS <=0.90 EQUIVOCAL SPECIMENS 0.91 TO 1.09 POSITIVE SPECIMENS >=1.10 Performed By: #### HBSAG, HIV12C, SYPHGX, HCQPCR, HSVG12, HSVM #### [facility] [employer] [facility] [place] [address] Observed: 08/09/2017 Status: F Source: [facility] BACT/CAND VAG [facility] 10:47 AM [facility] REPOSITORY Sp. Request/Comment: - Swab Smear Result - BACTERIAL VAGINOSIS RESULT: Stain results consistent with bacterial vaginosis. --> ABNORMAL ALERT No Yeast observed Rare Polymorphonuclear leukocytes Few --> ABNORMAL ALERT Clue camila ls present --> ABNORMAL ALERT Many Epithelial cells Performed By: #### BVCNSM #### [facility] [employer] [address] [place] [address] GC/CHLAMYDIA AMPLIF Collected: 08/09/2017 Status: F Source: [place] 10:43 [facility] REPOSITORY TYPE CODE TESTS RESULT OUT OF REFERENCE UNITS RANGE LAB GCCTSR GC/Chlam Amp Cervix Source LAB GCAMPL GC Negative Amplification for Neisseria gonorrhoeae by amplification. LAB CLAMPL Chlamydia Negative Amplif for Chlamydia trachomatis by amplification. Performed By: #### GCCT #### [facility] [address] [place], [place] [address] HPV W/GENOTYPE Collected: 08/09/2017 Status: F Source: [facility] 10:43 [facility] REPOSITORY TYPE CODE TESTS RESULT OUT OF REFERENCE UNITS RANGE LAB HPVT16 HPV HighRisk Negative for Type 16 HPV DNA high risk type 16 by PCR. LAB HPVT18 HPV HighRisk Negative for Type 18 HPV DNA high risk type 18 by PCR. LAB HPVHRO HPV HighRisk Negative for Other HPV DNA high risk types: 31,33,35,39,45 ,51,52,56,58,5 9,66,68 by PCR. Result Comment: This test was developed and its performance characteristics determined by [facility]'s [facility] [place] ([facility]). It has not been cleared or approved by the FDA. -[facility] is regulated under CLIA as qualified to perform high-complexity testing. This test is used for clinical purposes. It should not be regarded as inv estigational or for research. Performed By: #### HPVHRR #### [facility] [address] [place], [place] [address] CYTOLOGY Observed: 08/09/2017 Status: C Source: [place] 10:43 [facility] REPOSITORY ADDITIONAL PROCEDURES PRESENT Specimen originated from [facility] Specimen #: [id number] Submitting Physician: SOFI CORONEL SPECIMEN SUBMITTED A: VAGINAL VAULT,SCREENING, FLUID FINAL DIAGNOSIS A. VAGINAL VAULT,SCREENING, FLUID Satisfactory for interpretation. Negative for intraepithelial lesion or malignancy. Predominance of coccobacilli consistent with shift in vaginal norah. PLACIDO Barrera (ASCP) (Electronic Signature) ADDITIONAL PROCEDURE(S) HUMAN PAPILLOMA VIRUS Date Ordered: 08/13/2017 Date Reported: 08/15/2017 Procedure Results and Interpretation Negative for HPV DNA high risk type 16 by PCR. Negative for HPV DNA high risk type 18 by PCR. Negative for HPV DNA high risk types: 31,33,35,39,45,51,52,56,58,59,66,68 by PCR. This test was developed and its performance characteristics determined by [facility]'s [facility] [place] ([facility]). It has not been cleared or approved by the FDA. -[facility] is regulated under CLIA as qualified to perform high-complexity testing. This test is used for clinical purposes. It should not be regarded as investigational or for research. 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 Diagnostic interpretation performed at [facility], [address] [place] [address]. The Pap Smear is a screening test for cervical cancer. False negative results occur with all screening tests, emphasizing the need for rescreening at recommended intervals, and clinical correlation. 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 Menses: no menses - postmenopausal with hysterectomy 2009. Contraception: hysterectomy HPV vaccine: N/A Last Pap: 2011 normal (vaginal cuff) HPV: positive 2009 - hx of LSIL and CIN1 in 2009 History of abnormal pap: Yes Last mammogram: today at 0930 Sexually active: Yes History of STDS: HPV Patient concerns for STD exposure: Yes: Recently ended relationship with partner that had been cheating on her. Patient denies any condom use with partners as she is allergic to spermicide Last sexual contact: Last week Time with current partner: Several months Number of lifetime partners: 10 History of partner cco malignancy: CERVICAL CANCER - JON I on colposcopy 2009. Hysterectomy done. Pain with intercourse: No Postcoital bleeding: No Hot flashes: Yes Night sweats: No Vaginal dryness: No Mood swings: No Insomnia: Yes Exercise: 2-3 times a week for 60 minutes. Type: Walking Diet: Regular Seatbelt use: Yes Obstetric History T4 L4 SAB1 TAB1 Ectopic0 Multiple1 Live Births0 PAST MEDICAL HISTORY Diagnosis Date - ANXIETY STATE NOS 02/18/2007 Pseudoseizures. - Anxiety state, unspecified 02/18/2007 - Arthritis - Arthritis - Congenital musculoskeletal deformity of spine - DDD (degenerative disc disease) 04/13/2009 - Degenerative disc disease - DEPRESSIVE DISORDER NEC 02/18/2007 Counselling Center: Schizoaffective, borderline personality, dissociative, PTSD. - Dysplasia of cervix, low grade (JON 1) 2009 - IDIOPATHIC SCOLIOSIS 2002 - Migraine 04/13/2009 - MYALGIA AND MYOSITIS NOS 2002 Fibromyalgia, Lumbago. - Personal history of alcoholism (HCC) - Pseudoseizure 04/01/2003 Video EEG - PTSD (post-traumatic stress disorder) - Scoliosis - Stroke (HCC) mild per pt - Vitamin D deficiency 04/14/2009 PAST SURGICAL HISTORY Procedure Laterality Date - DELIVERY ONLY , low cervical - DELIVERY ONLY , low cervical - DANDC, DIAG AND/OR THERAPEUTIC Dilation AND curettage - HYSTERECTOMY HX 2010 abnormal paps - LIGATE FALLOPIAN TUBE Tubal ligation - PAST SURGICAL HISTORY OF skin graft to ankle FAMILY HISTORY Problem Relation Age of Onset - Adopted: Yes - Diabetes Sister - Cancer Mother of pancreatic cancer - Heart Brother Possibably has cancer as well SOCIAL HISTORY Social History Substance Use Topics - Smoking status: Current Every Day Smoker Packs/day: 1.50 Years: 20.00 Types: Cigarettes - Smokeless tobacco: Never Used - Alcohol use No Comment: Patient is a recovering alcoholic. She is sober as of 03/2007 REVIEW OF SYSTEMS Abdomen: No abdominal pain, nausea, vomiting, diarrhea, or constipation. No bloating, early satiety, indigestion, or increased flatulence. Rare fecal incontinence noted. Bladder: No dysuria, gross hematuria. ++urinary frequency, urinary urgency, and incontinence. Breast: No breast lumps, nipple d/c, overlying skin changes, redness or skin retraction. Allergies and current medication updated:Yes EXAM: BP 108/68 Ht 5' 5.748 (1.67m) Wt 143 lb (64.9kg) LMP 01/26/2010 BMI 23.26 kg/(m2). GENERAL: pleasant, and ethnicity female in no apparent distress, pressured speech and manic laughter occasionally noted during visit. HEENT: Normocephalic, atraumatic, mucus membranes moist and no lesions NECK: Supple, full range of motion, no adenopathy and thyroid normal DERMATOLOGY: Normal, without lesions, non-icteric and non-hirsute BREAST: soft, non-tender, symmetric, no dominant mass, normal nipple-areolar complex, no lymphadenopathy and no nipple discharge CHEST: Normal inspiratory effort ABDOMEN: soft, non-tender and no masses PELVIC: external genitalia normal, normal Bartholin's glands, urethra, Lamar's glands, no vulvar lesions, physiologic discharge present, normal appearing perineal body and perianal region, cervix surgically absent, poor vaginal support BIMANUAL: no adnexal masses, non-tender and uterus surgically absent RECTOVAGINAL: rectovaginal exam negative for any masses or nodularity. NEURO: alert and oriented x3,exam grossly non-focal EXTREMITIES: normal ASSESSMENT/PLAN: 1) Health maintenance: Pap done with HPV - vaginal cuff pap done. Hx of +HPV in 2009, no rescreen for HPV has been done since. Mammogram ordered - done today Nutrition, exercise and routine health maintenance exams reviewed. Calcium/Vitamin D supplementation information provided. Smoking cessation: Smoking cessation encouraged and resources provided. Benefits of smoking cessation reviewed. Patient encouraged to avoid smoking. Lipids/glucose: followed by PCP Vitamin D: followed by PCP 2) Contraception: hysterectomy. Contraceptive options reviewed and information provided. 3) STD screening: Accepts full STD screeening including HIV, Syphilis and Hepatitis. 4) Follow up one year or sooner as needed MARINA Fan APRN.CNM 08/09/2017 12:31 PM Signed Pelvic Floor Therapy [facility] [phone] [place] [address] [facility] - Beulah Oneil, PT [phone] [facility] Shanti Edward, PT [phone] ACOG Screening Guidelines (2015) The following health screening schedule is recommended by the [employer] (ACOG). Some of these tests may be ordered or performed by your primary care doctor. Pap test screening The pap test looks at cells on the cervix (the opening from the vagina to the uterus) to look for cancer or pre-cancerous changes. These changes are caused by the human papillomavirus (HPV). Studies estimate that half of all women will test positive for this virus within 3 years of starting sexual activity. For young women with a normal immune system, 90% of HPV infections will resolve within 2 years. There is a vaccine available against some forms of HPV. This is recommended for girls and women age 9-26 and is a series of 3 injections over 6 months. Because this vaccine does not protect against all HPV types which can cause cervical cancer, women who received the vaccine still need pap tests. Pap smear screening should be started at age 21. The pap test should be done every 3 years from age 21-29. From age 30-65, pap smears can be done every 5 years if HPV test is negative or every 3 years if HPV testing is not done. For women over the age of 65, ACOG recommends against screening women who have had adequate prior screening and are not otherwise at high risk for cervical cancer. Women who have had a hysterectomy also do not need routine pap smear screening unless the pap smear was done for a cervical cancer or moderate to severe dysplasia. Breast cancer screening Mammogram should be performed every 1-2 years starting at age 40 and every year starting at age 50. Screening may be started earlier depending on family history. Cholesterol screening Lipid panel (cholesterol test) should be checked every 5 years starting at age 45. Diabetes screening Fasting glucose (blood sugar) test should be performed every 3 years starting at age 45. Colorectal cancer screening Starting at age 50, women should have a screening colonoscopy at least every 10 years. Screening may be started earlier depending on family history. Thyroid screening Thyroid function test (TSH) should be checked every 5 years starting at age 50. Bone mineral density screening All postmenopausal women age 65 and over and postmenopausal women with risk factors for osteoporosis should have a bone mineral density test performed. Risk factors include race, family history of osteoporosis, personal history of fractures, poor nutrition, smoking, heavy alcohol use, early menopause, low calcium intake and low body weight. Certain medical conditions and long-term use of some medications may also increase risk. Referring Provider: ARUNA HANLEY [[id number]] Allergies As of Date: 08/09/2017 Noted Allergy Reaction DILAUDID (HYDROMORPHONE HCL) 02/18/2007 BACTRIM (SULFAMETHOXAZOLE-TRIMETH*02/18/2007 BEES 02/18/2007 carbatral [Other] 12/28/2005 DEMEROL (MEPERIDINE (PF)) 12/28/2005 EFFEXOR (VENLAFAXINE HCL) 12/28/2005 FLEXERIL (CYCLOBENZAPRINE HCL) 08/14/2011 2 - Rash GABAPENTIN 08/14/2011 2 - Rash LACTOSE 12/28/2005 LEXAPRO (ESCITALOPRAM OXALATE) 12/28/2005 NAPROSYN (NAPROXEN) 08/14/2011 2 - Rash noraflex [Other] 12/28/2005 PEXEVA (PAROXETINE) 02/18/2007 SEROQUEL (QUETIAPINE FUMARATE) 08/14/2011 2 - Rash TOMATO 06/27/2015 8 - GI Upset Comments: Tomato sauce VISTARIL (HYDROXYZINE HCL) 12/28/2005 Date Reviewed: 08/09/2017 Reviewed by: Mireya Hammer Ma - Fully Assessed Primary Visit Diagnosis:Encounter for gynecological examination (general) (routine) without abnormal findings [Z01.419] Other Visit Diagnoses:Screening for cervical cancer [Z12.4] Encounter for screening for human papillomavirus (HPV) [Z11.51] Encounter for screening mammogram for breast cancer [Z12.31] Screen for STD (sexually transmitted disease) [Z11.3] Frequent urination [R35.0] Order(s):FRANSISCO SCREENING [[id number]] Order #: [id number] FUTURE PAP FLUID VAGINAL VAULT SCREENING [[id number]] Order #: [id number] GC/CHLAMYDIA DNA DET [SQGCCAMP] Order #: [id number] BACT/ASHLEY VAG GRAM STAIN [SQBVCNSM] Order #: [id number] FUTURE SYPHILIS IGG WITH CONF [SQSYPHGX] Order #: [id number] FUTURE HEP B SURF AG SCRN [SQHBSAG] Order #: [id number] FUTURE HCV QUANT RNA BY PCR [SQHCQPCR] Order #: [id number] FUTURE HIV 1,2 COMBO (AG/AB) [SQHIV12] Order #: [id number] FUTURE HERPES SIMPLEX TYPE 1 AND 2 IG [AAVIKR82] Order #: [id number] FUTURE HERPES SIMPLEX IGM AB [SQHSVM] Order #: [id number] FUTURE URINE CULTURE [SQURCUL] Order #: [id number] Prescriptions as of 08/09/2017 Sig: SERTRALINE 50 MG TABLET TAKE 1 TABLET BY MOUTH TWICE * MULTIVITAMIN TABLET Take 1 tablet by mouth once d* CLONAZEPAM 0.5 MG TABLET Take 1 tablet by mouth twice * NICOTINE 7 MG/24 HR DAILY TRA* Apply 1 Patch as directed yahaira* ALBUTEROL SULFATE CONCENTRATE* Inhale 0.5 mL as instructed o* COMPOUNDED PRESCRIPTION NEBULIZER FOR HOME USE. Asth* ALBUTEROL SULFATE 2.5 MG/3 ML* Use 3 mL via nebulizer every * ALBUTEROL SULFATE HFA 90 MCG/* Inhale 2 Puffs as instructed * ASPIRIN 81 MG TABLET,DELAYED * Take 81 mg by mouth once leslie* MIRTAZAPINE 15 MG TABLET Take 15 mg by mouth daily at * Problem List As Of Date 08/09/2017 Noted Resolved Myalgia and myositis [OMK2206] INVALID FOR* More... IDIOPATHIC SCOLIOSIS [M41.20] INVALID FOR* DRUG ERUPTION///DRUG DERMATITIS NOS [L27.0] INVALID FOR* DYSCHROMIA UNSPECIFIED [L81.9] INVALID FOR* Anxiety State, Unspecified [F41.1] INVALID FOR* More... Depressive Disorder, not Elsewhere Classified [*INVALID FOR* More... DDD (Degenerative Disc Disease) [JCX8520] INVALID FOR* Migraine [G43.909] INVALID FOR* Vitamin D Deficiency [E55.9] INVALID FOR* Fibrocystic breast disease [N60.19] INVALID FOR* Other instructions from your clinician: Pelvic Floor Therapy [facility] [phone] [place] [id number] [place] [address] Rehab - Beulah Oneil, PT [phone] [facility] Shanti Edward, PT [phone] ACOG Screening Guidelines (2015) The following health screening schedule is recommended by the [employer] (ACOG). Some of these tests may be ordered or performed by your primary care doctor. Pap test screening The pap test looks at cells on the cervix (the opening from the vagina to the uterus) to look for cancer or pre-cancerous changes. These changes are caused by the human papillomavirus (HPV). Studies estimate that half of all women will test positive for this virus within 3 years of starting sexual activity. For young women with a normal immune system, 90% of HPV infections will resolve within 2 years. There is a vaccine available against some forms of HPV. This is recommended for girls and women age 9-26 and is a series of 3 injections over 6 months. Because this vaccine does not protect against all HPV types which can cause cervical cancer, women who received the vaccine still need pap tests. Pap smear screening should be started at age 21. The pap test should be done every 3 years from age 21-29. From age 30-65, pap smears can be done every 5 years if HPV test is negative or every 3 years if HPV testing is not done. For women over the age of 65, ACOG recommends against screening women who have had adequate prior screening and are not otherwise at high risk for cervical cancer. Women who have had a hysterectomy also do not need routine pap smear screening unless the pap smear was done for a cervical cancer or moderate to severe dysplasia. Breast cancer screening Mammogram should be performed every 1-2 years starting at age 40 and every year starting at age 50. Screening may be started earlier depending on family history. Cholesterol screening Lipid panel (cholesterol test) should be checked every 5 years starting at age 45. Diabetes screening Fasting glucose (blood sugar) test should be performed every 3 years starting at age 45. Colorectal cancer screening Starting at age 50, women should have a screening colonoscopy at least every 10 years. Screening may be started earlier depending on family history. Thyroid screening Thyroid function test (TSH) should be checked every 5 years starting at age 50. Bone mineral density screening All postmenopausal women age 65 and over and postmenopausal women with risk factors for osteoporosis should have a bone mineral density test performed. Risk factors include race, family history of osteoporosis, personal history of fractures, poor nutrition, smoking, heavy alcohol use, early menopause, low calcium intake and low body weight. Certain medical conditions and long-term use of some medications may also increase risk. Disposition: Return in 1 year (on 08/09/2018), or if symptoms worsen or fail to improve, for Annual Exam. Follow-up and Disposition History Recorded Encounter Status:Closed by SOFI CORONEL CNM on 08/09/17 Observed: 08/09/2017 Status: F Source: [place] URINE CULTURE 10:00 AM [facility] REPOSITORY Sp. 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 Menses: no menses - postmenopausal with hysterectomy 2009. Contraception: hysterectomy HPV vaccine: N/A Last Pap: 2011 normal (vaginal cuff) HPV: positive 2009 - hx of LSIL and CIN1 in 2009 History of abnormal pap: Yes Last mammogram: today at 0930 Sexually active: Yes History of STDS: HPV Patient concerns for STD exposure: Yes: Recently ended relationship with partner that had been cheating on her. Patient denies any condom use with partners as she is allergic to spermicide Last sexual contact: Last week Time with current partner: Several months Number of lifetime partners: 10 History of partner cco malignancy: CERVICAL CANCER - JON I on colposcopy 2009. Hysterectomy done. Pain with intercourse: No Postcoital bleeding: No Hot flashes: Yes Night sweats: No Vaginal dryness: No Mood swings: No Insomnia: Yes Exercise: 2-3 times a week for 60 minutes. Type: Walking Diet: Regular Seatbelt use: Yes Obstetric History T4 L4 SAB1 TAB1 Ectopic0 Multiple1 Live Births0 PAST MEDICAL HISTORY Diagnosis Date - ANXIETY STATE NOS 02/18/2007 Pseudoseizures. - Anxiety state, unspecified 02/18/2007 - Arthritis - Arthritis - Congenital musculoskeletal deformity of spine - DDD (degenerative disc disease) 04/13/2009 - Degenerative disc disease - DEPRESSIVE DISORDER NEC 02/18/2007 Counselling Center: Schizoaffective, borderline personality, dissociative, PTSD. - Dysplasia of cervix, low grade (JON 1) 2009 - IDIOPATHIC SCOLIOSIS 2002 - Migraine 04/13/2009 - MYALGIA AND MYOSITIS NOS 2002 Fibromyalgia, Lumbago. - Personal history of alcoholism (HCC) - Pseudoseizure 04/01/2003 Video EEG - PTSD (post-traumatic stress disorder) - Scoliosis - Stroke (HCC) mild per pt - Vitamin D deficiency 04/14/2009 PAST SURGICAL HISTORY Procedure Laterality Date - DELIVERY ONLY , low cervical - DELIVERY ONLY , low cervical - DANDC, DIAG AND/OR THERAPEUTIC Dilation AND curettage - HYSTERECTOMY HX 2010 abnormal paps - LIGATE FALLOPIAN TUBE Tubal ligation - PAST SURGICAL HISTORY OF skin graft to ankle FAMILY HISTORY Problem Relation Age of Onset - Adopted: Yes - Diabetes Sister - Cancer Mother of pancreatic cancer - Heart Brother Possibably has cancer as well SOCIAL HISTORY Social History Substance Use Topics - Smoking status: Current Every Day Smoker Packs/day: 1.50 Years: 20.00 Types: Cigarettes - Smokeless tobacco: Never Used - Alcohol use No Comment: Patient is a recovering alcoholic. She is sober as of 03/2007 REVIEW OF SYSTEMS Abdomen: No abdominal pain, nausea, vomiting, diarrhea, or constipation. No bloating, early satiety, indigestion, or increased flatulence. Rare fecal incontinence noted. Bladder: No dysuria, gross hematuria. ++urinary frequency, urinary urgency, and incontinence. Breast: No breast lumps, nipple d/c, overlying skin changes, redness or skin retraction. Allergies and current medication updated:Yes EXAM: BP 108/68 Ht 5' 5.748 (1.67m) Wt 143 lb (64.9kg) LMP 01/26/2010 BMI 23.26 kg/(m2). GENERAL: pleasant, and ethnicity female in no apparent distress, pressured speech and manic laughter occasionally noted during visit. HEENT: Normocephalic, atraumatic, mucus membranes moist and no lesions NECK: Supple, full range of motion, no adenopathy and thyroid normal DERMATOLOGY: Normal, without lesions, non-icteric and non-hirsute BREAST: soft, non-tender, symmetric, no dominant mass, normal nipple-areolar complex, no lymphadenopathy and no nipple discharge CHEST: Normal inspiratory effort ABDOMEN: soft, non-tender and no masses PELVIC: external genitalia normal, normal Bartholin's glands, urethra, Lamar's glands, no vulvar lesions, physiologic discharge present, normal appearing perineal body and perianal region, cervix surgically absent, poor vaginal support BIMANUAL: no adnexal masses, non-tender and uterus surgically absent RECTOVAGINAL: rectovaginal exam negative for any masses or nodularity. NEURO: alert and oriented x3,exam grossly non-focal EXTREMITIES: normal ASSESSMENT/PLAN: 1) Health maintenance: Pap done with HPV - vaginal cuff pap done. Hx of +HPV in 2009, no rescreen for HPV has been done since. Mammogram ordered - done today Nutrition, exercise and routine health maintenance exams reviewed. Calcium/Vitamin D supplementation information provided. Smoking cessation: Smoking cessation encouraged and resources provided. Benefits of smoking cessation reviewed. Patient encouraged to avoid smoking. Lipids/glucose: followed by PCP Vitamin D: followed by PCP 2) Contraception: hysterectomy. Contraceptive options reviewed and information provided. 3) STD screening: Accepts full STD screeening including HIV, Syphilis and Hepatitis. 4) Follow up one year or sooner as needed Sofi Coronel APRN.[facility] Observed: 08/09/2017 Status: F Source: [place] 9:43 AM [facility] REPOSITORY * * *Final Report* * * DATE OF EXAM: Aug 09 2017 9:43AM [facility] 0581 - [facility] SCREENING / PROCEDURE REASON: Encounter for screening mammogram for malignant neoplasm of breast * * * * Physician Interpretation * * * * RESULT: #[id number] - [facility] SCREENING BILATERAL DIGITAL SCREENING MAMMOGRAM WITH CAD: 08/09/2017 HISTORY: Screening Mammogram - patient reports NO breast symptoms /Priors available for comparison. RESULT: TECHNIQUE: The study was acquired using full field digital technology and interpreted from soft copy. Current study was also evaluated with a Computer Aided Detection (CAD). Comparison is made to exams dated: 06/29/2014 mammogram - , 11/14/2009 mammogram, 08/31/2011 mammogram - [facility], 10/22/2011 mammogram, and 02/17/2013 mammogram - . The tissue of both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 Arthritis - Arthritis - Congenital musculoskeletal deformity of spine - DDD (degenerative disc disease) 04/13/2009 - Degenerative disc disease - DEPRESSIVE DISORDER NEC 02/18/2007 Counselling Center: Schizoaffective, borderline personality, dissociative, PTSD. - Dysplasia of cervix, low grade (JON 1) 2009 - IDIOPATHIC SCOLIOSIS 2002 - Migraine 04/13/2009 - MYALGIA AND MYOSITIS NOS 2002 Fibromyalgia, Lumbago. - Personal history of alcoholism (HCC) - Pseudoseizure 04/01/2003 Video EEG - PTSD (post-traumatic stress disorder) - Scoliosis - Stroke (HCC) mild per pt - Vitamin D deficiency 04/14/2009 Previous Surgical History PAST SURGICAL HISTORY Procedure Laterality Date - DELIVERY ONLY , low cervical - DELIVERY ONLY , low cervical - DANDC, DIAG AND/OR THERAPEUTIC Dilation AND curettage - HYSTERECTOMY 2010 abnormal paps - LIGATE FALLOPIAN TUBE Tubal ligation - PAST SURGICAL HISTORY OF skin graft to ankle Family History FAMILY HISTORY Problem Relation Age of Onset - Adopted: Yes - Diabetes Sister - Cancer Mother of pancreatic cancer - Heart Brother Possibably has cancer as well Patient Allergies ALLERGIES Allergen Reactions - Dilaudid [Hydromorp* - Bactrim [Sulfametho* - Bees - Demerol [Meperidine* - Effexor [Venlafaxin* - Flexeril [Cyclobenz* Rash - Gabapentin Rash - Lactose - Lexapro [Escitalopr* - Naprosyn [Naproxen] Rash - Pexeva [Paroxetine] - Seroquel [Quetiapin* Rash - Tomato GI Upset Tomato sauce - Vistaril [Hydroxyzi* - Carbatral [Other] - Noraflex [Other] Current Medications Current Outpatient Prescriptions on File Prior to Visit: clonazePAM (KLONOPIN) 0.5 mg tablet Take 1 tablet by mouth twice daily for 4 days. sertraline (ZOLOFT) 50 mg tablet Take 1 tablet by mouth twice daily. albuterol (PROVENTIL) 5 mg/mL nebu Inhale 0.5 mL as instructed one time only for 1 dose. 1 DOSE NOW - BACK OFFICE. PLACE 0.5 ML PER DROPPER AND 2.5 ML OF NORMAL SALINE INTO RESERVOIR. Nebulizer NEBULIZER FOR HOME USE. Asthma albuterol (PROVENTIL) 2.5 mg /3 mL (0.083 %) nebulizer solution Use 3 mL via nebulizer every 4 hours as needed for Wheezing/Shortness of Breath. Use over 5-15minutes. albuterol HFA (PROAIR HFA) 90 mcg/actuation inhaler Inhale 2 Puffs as instructed every 4 hours as needed. aspirin, enteric coated (ASPIRIN, ENTERIC COATED) 81 mg EC tablet Take 81 mg by mouth once daily. mirtazapine (REMERON) 15 mg tablet Take 15 mg by mouth daily at bedtime. predniSONE (DELTASONE) 20 mg tablet 9 day taper: 3 tablets for three days; 2 tablets for 3 days; 1 tablet for three days. guaiFENesin (MUCINEX) 600 mg 12 hr tablet Take 2 tablets by mouth twice daily. benzonatate (TESSALON PERLE) 100 mg capsule Take 1-2 capsules by mouth three times daily as needed. phenazopyridine (PYRIDIUM) 200 mg tablet Take 1 tablet by mouth three times daily as needed. SUMAtriptan (IMITREX) 50 mg tablet Take 1 tablet by mouth as needed for Migraine Headache (see administration instructions). rOPINIRole (REQUIP) 0.5 mg tablet Take 1 tablet by mouth twice daily. busPIRone (BUSPAR) 15 mg tablet Take 15 mg by mouth. 1/2 tab twice daily No current facility-administered medications on file prior to visit. 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 She is sober as of 03/2007 Drug use: No Sexual activity: Yes Partners with: Male control/protection: Tubal Ligation Comment: hysterectomy also Social History Narrative , 4 kids Unemployed, [employer] EXAM: BP 110/70 Pulse 78 Resp 16 Wt 63 kg (139 lb) LMP 01/26/2010 BMI 22.44 kg/m2 General Appearance: Well appearing, alert, in no acute distress, well-hydrated, well nourished.. Lungs: Lungs clear to auscultation. No wheezing, rhonchi, rales. Heart: RRR without murmur, gallop, or rubs. No ectopy. Health Maintenance List TETANUS due on 12/03/1979 MAMMOGRAM due on 08/30/2012 LIPID SCREEN due on 04/21/2014 HPV EVERY 5 YEARS due on 10/21/2014 PAP EVERY 5 YEARS due on 08/30/2016 INFLUENZA(Season Ended) due on 10/12/2017 DIABETES SCREEN due on 07/03/2018 ONE PNEUMOVAX PRIOR TO AGE 65 Completed Data reviewed Office Visit on 05/23/2017 Glucose, Urine Value: neg(mg/dL) Date: 05/23/2017 Bilirubin, Urine Value: neg Date: 05/23/2017 Ketones, Urine Value: neg Date: 05/23/2017 Specific [place], Ur Value: 1.010 Date: 05/23/2017 Hemoglobin/Blood,Ur Value: small Date: 05/23/2017 pH, Urine Value: 5.0 Date: 05/23/2017 Protein, Urine Value: trace(mg/dL) Date: 05/23/2017 Urobilinogen, Urine Value: 0.2(EU) Date: 05/23/2017 Nitrites Value: neg Date: 05/23/2017 Leukocytes Value: neg Date: 05/23/2017 Color/Appearance Date: 05/23/2017 Value: yellow / clear Quality Check Value: Yes(yes/no) Date: 05/23/2017 Specimen Request Date: 05/23/2017 Value: Specimen received in preservative Culture Date: 05/23/2017 Value: No growth (<1,000 CFU/ml) OARRS website checked and validated. All prescriptions have been APPROPRIATELY filled. No suspicious activity was identified.- 06/04/2017 by Aruna Hanley MD ASSESSMENT/PLAN: 1. Anxiety - ICD9: 300.00, ICD10: F41.9 (primary diagnosis) Continue current medications. - CLONAZEPAM 0.5 MG TABLET - PAIN PANEL, UR QUANT 2. Depression, unspecified depression type - ICD9: 311, ICD10: F32.9 - CLONAZEPAM 0.5 MG TABLET 3. PTSD (post-traumatic stress disorder) - ICD9: 309.81, ICD10: F43.10 - CLONAZEPAM 0.5 MG TABLET 4. Screening for cervical cancer - ICD9: V76.2, ICD10: Z12.4 - CONSULT TO GYNECOLOGY 5. Screening for malignant neoplasm of breast - ICD9: V76.10, ICD10: Z12.31 - FRANSISCO SCREENING 6. Medication monitoring encounter - ICD9: V58.83, ICD10: Z51.81 Controlled med agreement signed - PAIN PANEL, UR QUANT - TOX SCREEN ROUT UR Follow up in 3 months Aruna Hanley MD PROGRESS Observed: 05/31/2017 Status: COMPLETED Source: [place] 9:43 AM [facility] REPOSITORY HNO ID: [id number] Author: Deandra Barragan Service: (none) Author Type: Nurse Practitioner Type: Progress Notes Filed: 05/31/2017 10:33 AM Note Text: 05/31/2017 Patient presents with: ER F/U: withdraw from anxiety medication for missing 2 psych appt for being sick SUBJECTIVE: This is a 46 year old that is here today for refills stating that she is going through withdrawal. She states that she was dismissed from the counseling center because of her missed appointments. She would like to be managed by Dr. Faulkner. She states that she has not seen him in some time due to the confusion with [facility]. She refuses to discuss her anxiety with me today repeating I don't have anxiety if I am taking my medication and I need my medication. Discussed that we called the counseling center and they states that they told her to come in on Saturday. She will not have an appointment time, but she will be seen when there are no shows or cancellations. They did not give her an appt time due to her history of no shows. She admits that she was told that, but does not want to see them. She states that she has no interest in counseling or psychology. She states that her only concern today is managing the withdrawal and she was told in the ED yesterday that if she doesn't get her medication refilled she will have seizures again. Based on ED report, they did not feel that she was actively going through withdrawal when she was sent there via squad, but they did treat her with some klonopin when she was there. She now reports diarrhea, clammy hands, convulsions, sweating, and dizziness. She did not drive self here today. PAST MEDICAL HISTORY Diagnosis Date - ANXIETY STATE NOS 02/18/2007 Pseudoseizures. - Anxiety state, unspecified 02/18/2007 - Arthritis - Arthritis - Congenital musculoskeletal deformity of spine - DDD (degenerative disc disease) 04/13/2009 - Degenerative disc disease - DEPRESSIVE DISORDER NEC 02/18/2007 Counselling Center: Schizoaffective, borderline personality, dissociative, PTSD. - Dysplasia of cervix, low grade (JON 1) 2009 - IDIOPATHIC SCOLIOSIS 2002 - Migraine 04/13/2009 - MYALGIA AND MYOSITIS NOS 2002 Fibromyalgia, Lumbago. - Personal history of alcoholism (HCC) - Pseudoseizure 04/01/2003 Video EEG - PTSD (post-traumatic stress disorder) - Scoliosis - Stroke (HCC) mild per pt - Vitamin D deficiency 04/14/2009 ALLERGIES Dilaudid [Hydromorphone Hcl]; Bactrim [Sulfamethoxazole-Trimethoprim]; Bees; Demerol [Meperidine (Pf)]; Effexor [Venlafaxine Hcl]; Flexeril [Cyclobenzaprine Hcl]; Gabapentin; Lactose; Lexapro [Escitalopram Oxalate]; Naprosyn [Naproxen]; Pexeva [Paroxetine]; Seroquel [Quetiapine Fumarate]; Tomato; Vistaril [Hydroxyzine Hcl]; Carbatral [Other]; Noraflex [Other] MEDICATIONS Current Outpatient Prescriptions: albuterol (PROVENTIL) 5 mg/mL nebu Inhale 0.5 mL as instructed one time only for 1 dose. 1 DOSE NOW - BACK OFFICE. PLACE 0.5 ML PER DROPPER AND 2.5 ML OF NORMAL SALINE INTO RESERVOIR. Nebulizer NEBULIZER FOR HOME USE. Asthma albuterol (PROVENTIL) 2.5 mg /3 mL (0.083 %) nebulizer solution Use 3 mL via nebulizer every 4 hours as needed for Wheezing/Shortness of Breath. Use over 5-15minutes. albuterol HFA (PROAIR HFA) 90 mcg/actuation inhaler Inhale 2 Puffs as instructed every 4 hours as needed. aspirin, enteric coated (ASPIRIN, ENTERIC COATED) 81 mg EC tablet Take 81 mg by mouth once daily. mirtazapine (REMERON) 15 mg tablet Take 15 mg by mouth daily at bedtime. clonazePAM (KLONOPIN) 0.5 mg tablet Take 1 tablet by mouth twice daily for 4 days. sertraline (ZOLOFT) 50 mg tablet Take 1 tablet by mouth twice daily. predniSONE (DELTASONE) 20 mg tablet 9 day taper: 3 tablets for three days; 2 tablets for 3 days; 1 tablet for three days. guaiFENesin (MUCINEX) 600 mg 12 hr tablet Take 2 tablets by mouth twice daily. benzonatate (TESSALON PERLE) 100 mg capsule Take 1-2 capsules by mouth three times daily as needed. phenazopyridine (PYRIDIUM) 200 mg tablet Take 1 tablet by mouth three times daily as needed. SUMAtriptan (IMITREX) 50 mg tablet Take 1 tablet by mouth as needed for Migraine Headache (see administration instructions). rOPINIRole (REQUIP) 0.5 mg tablet Take 1 tablet by mouth twice daily. busPIRone (BUSPAR) 15 mg tablet Take 15 mg by mouth. 1/2 tab twice daily No current facility-administered medications for this visit. Medications and allergies reviewed by this provider. 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 She is sober as of 03/2007 Drug use: No Sexual activity: Yes Partners with: Male control/protection: Tubal Ligation Comment: hysterectomy also Social History Narrative , 4 kids Unemployed, [employer] REVIEW OF SYSTEMS see HPI Feeling nervous, anxious, or on edge 1 Several days Not being able to stop or control worrying 1 Several days Worrying too much about different things 0 Not at all sure Trouble relaxing 1 Several days Being so restless that it's hard to sit still 1 Several days Being easily annoyed or irritable 0 Not at all sure Feeling afraid as if something awful might happen 0 Not at all sure LAKISHA-7 Anxiety Score 4 If you checked off any problems, how difficult have these problems made it for you to do your work, take care of things at home, or get along with other people? did not answer THE LAST 2 WEEKS, HAVE YOU BEEN BOTHERED BY ANY OF THE FOLLOWING? - Little interest or pleasure in doing things 0 NOT AT ALL Feeling down, depressed, or hopeless 0 Trouble falling or staying asleep, or sleeping too much 3 Feeling tired or having little energy 0 Poor appetite or overeating 0 Feeling bad yourself-you are a failure or have let yourself or others 1 Trouble concentrating, like reading the paper or watching TV 1 Moving/speaking slowly (others notice) OR being more fidgety/restless 0 Thoughts that you would be better off or of hurting yourself 0 PHQ TOTAL SCORE = 5 PHQ problems effect on difficulty of work, home, and social activity: did not answer OBJECTIVE: BP 94/74 (BP Site: Left Arm, BP Position: Sitting, BP Cuff Size: Regular Adult) Pulse 82 Temp 36.3 ?C (97.3 ?F) (Right Tympanic) Resp 16 Wt 63.7 kg (140 lb 6.4 oz) LMP 01/26/2010 SpO2 99% BMI 22.66 kg/m2. Vital signs reviewed by this provider. PHYSICAL EXAMINATION: Skin: no diaphoresis, rash, or clammy hands. Skin warm and dry. Eyes: Anicteric sclera. Pupils are equally round and reactive to light. Extraocular movements are intact. Lungs: Lungs clear to auscultation. No wheezing, rhonchi, rales Heart: RRR without murmur, gallop, or rubs. No ectopy Appearance: unkempted, disheveled, tense posture and uncooperative Behavior: poor eye contact and agitated Speech: fast Mood: irritable, anxious and angry Affect: appropriate Perceptions: none Thought process: goal directed Thought Content: normal Intelligence level: normal Insight: good Judgment: good ASSESSMENT/PLAN: 1. Anxiety - ICD9: 300.00, ICD10: F41.9 (primary diagnosis) - discussed that she should be seen by either the counseling center on Saturday and or Dr. Hanley to discuss if he will assume management - will refill klonopin through Saturday and refills will need to be through counseling center or PCP is agreeable after that - CLONAZEPAM 0.5 MG TABLET - SERTRALINE 50 MG TABLET 2. Depression, unspecified depression type - ICD9: 311, ICD10: F32.9 - see above - CLONAZEPAM 0.5 MG TABLET - SERTRALINE 50 MG TABLET 3. PTSD (post-traumatic stress disorder) - ICD9: 309.81, ICD10: F43.10 - see above - CLONAZEPAM 0.5 MG TABLET - SERTRALINE 50 MG TABLET 4. Benzodiazepine dependence (HCC) - ICD9: 304.10, ICD10: F13.20 - would like to avoid withdrawal. Pt was visibly uncomfortable during the exam, unclear if starting withdrawal or anxiety. Discussed red flags and encouraged ED if experiencing them. Deandra Barragan APRN.KATHY [facility] website checked and validated. All prescriptions have been APPROPRIATELY filled. No suspicious activity was identified.- 05/31/2017 by Deadnra Barragan APRN.CNP CNOV Observed: 05/31/2017 Status: COMPLETED Source: [place] 9:00 AM [facility] REPOSITORY Office Visit (FAMPWS) MALAIKA KEY ([id number]) 1970 F Date Time Provider Department 05/31/17 9:00 AM DEANDRA BARRAGAN (KATHY) FAMPWS During your visit today, we recorded the following information about you: Temperature Pulse Respiration Blood pressure 97.3 degrees 82/minute 16/minute 94/74 Weight 63.7 kg Deandra Barragan APRN.CNP 05/31/2017 10:33 AM Signed 05/31/2017 Patient presents with: ER F/U: withdraw from anxiety medication for missing 2 psych appt for being sick SUBJECTIVE: This is a 46 year old that is here today for refills stating that she is going through withdrawal. She states that she was dismissed from the counseling center because of her missed appointments. She would like to be managed by Dr. Faulkner. She states that she has not seen him in some time due to the confusion with [facility]. She refuses to discuss her anxiety with me today repeating ANDquot;I don't have anxiety if I am taking my medication and I need my medicationANDquot;. Discussed that we called the counseling center and they states that they told her to come in on Saturday. She will not have an appointment time, but she will be seen when there are no shows or cancellations. They did not give her an appt time due to her history of no shows. She admits that she was told that, but does not want to see them. She states that she has no interest in counseling or psychology. She states that her only concern today is managing the withdrawal and she was told in the ED yesterday that if she doesn't get her medication refilled she will have seizures again. Based on ED report, they did not feel that she was actively going through withdrawal when she was sent there via squad, but they did treat her with some klonopin when she was there. She now reports diarrhea, clammy hands, convulsions, sweating, and dizziness. She did not drive self here today. PAST MEDICAL HISTORY Diagnosis Date - ANXIETY STATE NOS 02/18/2007 Pseudoseizures. - Anxiety state, unspecified 02/18/2007 - Arthritis - Arthritis - Congenital musculoskeletal deformity of spine - DDD (degenerative disc disease) 04/13/2009 - Degenerative disc disease - DEPRESSIVE DISORDER NEC 02/18/2007 Counselling Center: Schizoaffective, borderline personality, dissociative, PTSD. - Dysplasia of cervix, low grade (JON 1) 2009 - IDIOPATHIC SCOLIOSIS 2002 - Migraine 04/13/2009 - MYALGIA AND MYOSITIS NOS 2002 Fibromyalgia, Lumbago. - Personal history of alcoholism (HCC) - Pseudoseizure 04/01/2003 Video EEG - PTSD (post-traumatic stress disorder) - Scoliosis - Stroke (HCC) mild per pt - Vitamin D deficiency 04/14/2009 ALLERGIES Dilaudid [Hydromorphone Hcl]; Bactrim [Sulfamethoxazole-Trimethoprim]; Bees; Demerol [Meperidine (Pf)]; Effexor [Venlafaxine Hcl]; Flexeril [Cyclobenzaprine Hcl]; Gabapentin; Lactose; Lexapro [Escitalopram Oxalate]; Naprosyn [Naproxen]; Pexeva [Paroxetine]; Seroquel [Quetiapine Fumarate]; Tomato; Vistaril [Hydroxyzine Hcl]; Carbatral [Other]; Noraflex [Other] MEDICATIONS Current Outpatient Prescriptions: albuterol (PROVENTIL) 5 mg/mL nebu Inhale 0.5 mL as instructed one time only for 1 dose. 1 DOSE NOW - BACK OFFICE. PLACE 0.5 ML PER DROPPER AND 2.5 ML OF NORMAL SALINE INTO RESERVOIR. Nebulizer NEBULIZER FOR HOME USE. Asthma albuterol (PROVENTIL) 2.5 mg /3 mL (0.083 %) nebulizer solution Use 3 mL via nebulizer every 4 hours as needed for Wheezing/Shortness of Breath. Use over 5-15minutes. albuterol HFA (PROAIR HFA) 90 mcg/actuation inhaler Inhale 2 Puffs as instructed every 4 hours as needed. aspirin, enteric coated (ASPIRIN, ENTERIC COATED) 81 mg EC tablet Take 81 mg by mouth once daily. mirtazapine (REMERON) 15 mg tablet Take 15 mg by mouth daily at bedtime. clonazePAM (KLONOPIN) 0.5 mg tablet Take 1 tablet by mouth twice daily for 4 days. sertraline (ZOLOFT) 50 mg tablet Take 1 tablet by mouth twice daily. predniSONE (DELTASONE) 20 mg tablet 9 day taper: 3 tablets for three days; 2 tablets for 3 days; 1 tablet for three days. guaiFENesin (MUCINEX) 600 mg 12 hr tablet Take 2 tablets by mouth twice daily. benzonatate (TESSALON PERLE) 100 mg capsule Take 1-2 capsules by mouth three times daily as needed. phenazopyridine (PYRIDIUM) 200 mg tablet Take 1 tablet by mouth three times daily as needed. SUMAtriptan (IMITREX) 50 mg tablet Take 1 tablet by mouth as needed for Migraine Headache (see administration instructions). rOPINIRole (REQUIP) 0.5 mg tablet Take 1 tablet by mouth twice daily. busPIRone (BUSPAR) 15 mg tablet Take 15 mg by mouth. 1/2 tab twice daily No current facility-administered medications for this visit. Medications and allergies reviewed by this provider. 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 She is sober as of 03/2007 Drug use: No Sexual activity: Yes Partners with: Male control/protection: Tubal Ligation Comment: hysterectomy also Social History Narrative , 4 kids Unemployed, [employer] REVIEW OF SYSTEMS see HPI Feeling nervous, anxious, or on edge 1 Several days Not being able to stop or control worrying 1 Several days Worrying too much about different things 0 Not at all sure Trouble relaxing 1 Several days Being so restless that it's hard to sit still 1 Several days Being easily annoyed or irritable 0 Not at all sure Feeling afraid as if something awful might happen 0 Not at all sure LAKISHA-7 Anxiety Score 4 If you checked off any problems, how difficult have these problems made it for you to do your work, take care of things at home, or get along with other people? did not answer THE LAST 2 WEEKS, HAVE YOU BEEN BOTHERED BY ANY OF THE FOLLOWING? - Little interest or pleasure in doing things 0 NOT AT ALL Feeling down, depressed, or hopeless 0 Trouble falling or staying asleep, or sleeping too much 3 Feeling tired or having little energy 0 Poor appetite or overeating 0 Feeling bad yourself-you are a failure or have let yourself or others 1 Trouble concentrating, like reading the paper or watching TV 1 Moving/speaking slowly (others notice) OR being more fidgety/restless 0 Thoughts that you would be better off or of hurting yourself 0 PHQ TOTAL SCORE = 5 PHQ problems effect on difficulty of work, home, and social activity: did not answer OBJECTIVE: BP 94/74 (BP Site: Left Arm, BP Position: Sitting, BP Cuff Size: Regular Adult) Pulse 82 Temp 36.3 ?C (97.3 ?F) (Right Tympanic) Resp 16 Wt 63.7 kg (140 lb 6.4 oz) LMP 01/26/2010 SpO2 99% BMI 22.66 kg/m2. Vital signs reviewed by this provider. PHYSICAL EXAMINATION: Skin: no diaphoresis, rash, or clammy hands. Skin warm and dry. Eyes: Anicteric sclera. Pupils are equally round and reactive to light. Extraocular movements are intact. Lungs: Lungs clear to auscultation. No wheezing, rhonchi, rales Heart: RRR without murmur, gallop, or rubs. No ectopy Appearance: unkempted, disheveled, tense posture and uncooperative Behavior: poor eye contact and agitated Speech: fast Mood: irritable, anxious and angry Affect: appropriate Perceptions: none Thought process: goal directed Thought Content: normal Intelligence level: normal Insight: good Judgment: good ASSESSMENT/PLAN: 1. Anxiety - ICD9: 300.00, ICD10: F41.9 (primary diagnosis) - discussed that she should be seen by either the counseling center on Saturday and or Dr. Hanley to discuss if he will assume management - will refill klonopin through Saturday and refills will need to be through counseling center or PCP is agreeable after that - CLONAZEPAM 0.5 MG TABLET - SERTRALINE 50 MG TABLET 2. Depression, unspecified depression type - ICD9: 311, ICD10: F32.9 - see above - CLONAZEPAM 0.5 MG TABLET - SERTRALINE 50 MG TABLET 3. PTSD (post-traumatic stress disorder) - ICD9: 309.81, ICD10: F43.10 - see above - CLONAZEPAM 0.5 MG TABLET - SERTRALINE 50 MG TABLET 4. Benzodiazepine dependence (HCC) - ICD9: 304.10, ICD10: F13.20 - would like to avoid withdrawal. Pt was visibly uncomfortable during the exam, unclear if starting withdrawal or anxiety. Discussed red flags and encouraged ED if experiencing them. Deandra Barragan APRN.[facility] website checked and validated. All prescriptions have been APPROPRIATELY filled. No suspicious activity was identified.- 05/31/2017 by Deandra Barragan APRN.[employer] CHINESE [employer] Referring Provider: SELF [[id number]] Allergies As of Date: 05/31/2017 Noted Allergy Reaction DILAUDID (HYDROMORPHONE HCL) 02/18/2007 BACTRIM (SULFAMETHOXAZOLE-TRIMETH*02/18/2007 BEES 02/18/2007 DEMEROL (MEPERIDINE (PF)) 12/28/2005 EFFEXOR (VENLAFAXINE HCL) 12/28/2005 FLEXERIL (CYCLOBENZAPRINE HCL) 08/14/2011 2 - Rash GABAPENTIN 08/14/2011 2 - Rash LACTOSE 12/28/2005 LEXAPRO (ESCITALOPRAM OXALATE) 12/28/2005 NAPROSYN (NAPROXEN) 08/14/2011 2 - Rash PEXEVA (PAROXETINE) 02/18/2007 SEROQUEL (QUETIAPINE FUMARATE) 08/14/2011 2 - Rash TOMATO 06/27/2015 8 - GI Upset Comments: Tomato sauce VISTARIL (HYDROXYZINE HCL) 12/28/2005 carbatral [Other] 12/28/2005 noraflex [Other] 12/28/2005 Date Reviewed: 05/31/2017 Reviewed by: Santiago Murguia Ma - Fully Assessed Reason for Visit: ER F/U [41] Cmt: withdraw from anxiety medication for missing 2 psych appt for being sick Reason For Visit History Recorded Primary Visit Diagnosis:Anxiety [F41.9] Other Visit Diagnoses:Depression, unspecified depression type [F32.9] PTSD (post-traumatic stress disorder) [F43.10] Benzodiazepine dependence (HCC) [F13.20] Order(s):clonazePAM (KLONOPIN) 0.5 mg tabletTake 1 tablet by mouth twice daily for 4 days.Disp: 8 tabletRfl: 0 sertraline (ZOLOFT) 50 mg tabletTake 1 tablet by mouth twice daily.Disp: 60 tabletRfl: 0 Prescriptions as of 05/31/2017 Sig: ALBUTEROL SULFATE CONCENTRATE* Inhale 0.5 mL as instructed o* COMPOUNDED PRESCRIPTION NEBULIZER FOR HOME USE. Asth* ALBUTEROL SULFATE 2.5 MG/3 ML* Use 3 mL via nebulizer every * ALBUTEROL SULFATE HFA 90 MCG/* Inhale 2 Puffs as instructed * ASPIRIN 81 MG TABLET,DELAYED * Take 81 mg by mouth once leslie* MIRTAZAPINE 15 MG TABLET Take 15 mg by mouth daily at * CLONAZEPAM 0.5 MG TABLET Take 1 tablet by mouth twice * SERTRALINE 50 MG TABLET Take 1 tablet by mouth twice * PREDNISONE 20 MG TABLET 9 day taper: 3 tablets for th* GUAIFENESIN ER 600 MG TABLET,* Take 2 tablets by mouth twice* BENZONATATE 100 MG CAPSULE Take 1-2 capsules by mouth th* PHENAZOPYRIDINE 200 MG TABLET Take 1 tablet by mouth three * SUMATRIPTAN 50 MG TABLET Take 1 tablet by mouth as nee* ROPINIROLE 0.5 MG TABLET Take 1 tablet by mouth twice * BUSPIRONE 15 MG TABLET Take 15 mg by mouth. / tab * Medication notes this encounter PREDNISONE 20 MG TABLET >> Santiago Murguia Ma 05/31/2017 9:09 AM >> SANTIAGO UMRGUIA MA SatMay 31, 2017 9:09 AM Therapy complete. GUAIFENESIN ER 600 MG TABLET, EXTENDED RELEASE 12 HR >> Santiago Murguia Ma 05/31/2017 9:09 AM >> SANTIAGO MURGUIA MA SatMay 31, 2017 9:09 AM Therapy complete. BENZONATATE 100 MG CAPSULE >> Santiago Murguia Ma 05/31/2017 9:08 AM >> SANTIAGO MURGUIA MA May 31, 2017 9:08 AM Therapy complete SUMATRIPTAN 50 MG TABLET >> Santiago Murguia Ma 05/31/2017 9:09 AM >> HAUMESSER SANTIAGO AMADO SatMay 31, 2017 9:09 AM No longer taking. ROPINIROLE 0.5 MG TABLET >> Santiago Haumesser Ma 05/31/2017 9:09 AM >> HAUMESSER SANTIAGO AMADO SatMay 31, 2017 9:09 AM Therapy complete. BUSPIRONE 15 MG TABLET >> Santiago Haumesser Ma 05/31/2017 9:08 AM >> HAUMESSER SANTIAGO AMADO SatMay 31, 2017 9:08 AM No longer taking. Problem List As Of Date 05/31/2017 Noted Resolved Myalgia and myositis [[id number]] INVALID FOR* More... IDIOPATHIC SCOLIOSIS [M41.20] INVALID FOR* DRUG ERUPTION///DRUG DERMATITIS NOS [L27.0] INVALID FOR* DYSCHROMIA UNSPECIFIED [L81.9] INVALID FOR* Anxiety State, Unspecified [F41.1] INVALID FOR* More... Depressive Disorder, not Elsewhere Classified [*INVALID FOR* More... DDD (Degenerative Disc Disease) [ERR8853] INVALID FOR* Migraine [G43.909] INVALID FOR* Vitamin D Deficiency [E55.9] INVALID FOR* Fibrocystic breast disease [N60.19] INVALID FOR* Prescriptions ordered this encounter Disp Refills Start End CLONAZEPAM 0.5 MG TABLET 8 ta* 0 05/31/2017 06/04/2017 Class: Print RX Route: ORAL Sig: Take 1 tablet by mouth twice daily for 4 days. SERTRALINE 50 MG TABLET 60 t* 0 05/31/2017 Route: ORAL Sig: Take 1 tablet by mouth twice daily. Medications Discontinued During This Encounter clonazePAM (KLONOPIN) 0.5 mg tablet 2 03/04/2017 05/31/2017 Class: Historical Med Route: ORAL Sig: Take 1 tablet by mouth twice daily. Disc: Reason for discontinue is not on file. sertraline (ZOLOFT) 50 mg tablet 03/04/2017 05/31/2017 Class: Historical Med Route: ORAL Sig: Take 1 tablet by mouth twice daily. Disc: Reason for discontinue is not on file. Follow-up and Disposition History Recorded Questionnaire: LAKISHA-7 ANXIETY SCALE Feeling nervous, anxious, or on edge -> 1 Several days Not being able to stop or control worrying -> 1 Several days Worrying too much about different things -> 0 Not at all sure Trouble relaxing -> 1 Several days Being so restless that it's hard to sit still -> 1 Several days Being easily annoyed or irritable -> 0 Not at all sure Feeling afraid as if something awful might happen -> 0 Not at all sure LAKISHA-7 Anxiety Score -> 4 If you checked off any problems, how difficult have these problems made it for you to do your work, take care of things at home, or get along with other people? -> Cmt: did not answer Questionnaire: PHQ-9 THE LAST 2 WEEKS, HAVE YOU BEEN BOTHERED BY ANY OF THE FOLLOWING? -> - Little interest or pleasure in doing things -> 0 NOT AT ALL Feeling down, depressed, or hopeless -> 0 Trouble falling or staying asleep, or sleeping too much - > 3 Feeling tired or having little energy -> 0 Poor appetite or overeating -> 0 Feeling bad yourself-you are a failure or have let yourself or others -> 1 Trouble concentrating, like reading the paper or watching TV -> 1 Moving/speaking slowly (others notice) OR being more fidgety/restless -> 0 Thoughts that you would be better off or of hurting yourself -> 0 PHQ TOTAL SCORE = -> 5 PHQ problems effect on difficulty of work, home, and social activity: -> Cmt: did not answer Encounter Status:Closed by DEANDRA BARRAGAN on 05/31/17 EMERGENCY DEPARTMENT Observed: 05/30/2017 Status: F Source: [place] SUMMARY 2:53 PM [facility] REPOSITORY [facility] Medical Records Department [address] [place] [address] Emergency Department Summary 05/24/17 0024 MR#: [id number] Acct: [id number] Name: MALAIKA KEY Rep #: [id number] : 1970 46 From: Wagner Porter DO PCP: Kaylin Rangel Status: DEP ER - ER Visit Summary Date of Service: 05/24/17 Chief Complaint: Blood in urine History of Present Illness: The patient is a 46 F who states that she has been feeling well for about a week. She notes some nausea. She notes some back discomfort mostly in the left side. She also states she seen some intermittent blood. She also has urinary frequency and is now having urinary incontinence. She states she has had several C-sections and hysterectomy. She is also states that as a child she had a ureteral/bladder surgery that she does not know exactly what they did. She went to the urgent care tonight they checked her urine and said that she had protein and blood in the urine sent to the emergency department. Physical Examination: Afebrile vital signs are stable Gen: Well-nourished well-developed Head: Normocephalic atraumatic Eyes: Perrl EOMI ENT: TMs clear no rhinorrhea moist mucous membranes Neck: Supple no lymphadenopathy no JVD nontender CVS: Regular rate rhythm no murmurs normal S1-S2 Respiratory: No distress clear to auscultation bilaterally chest nontender Abdomen: Soft nontender nondistended normal bowel sounds no masses Back: Nontender Extremity: Nontender no edema Skin: Normal color no rash Neuro: alert orientated 3 CN II-XII intact normal strength sensation reflexes gait cerebellar Psych: Normal affect normal mood Test Results: Urinalysis is normal. CT abdomen pelvis does not demonstrate any acute findings Emergency Department Course and Treatment: I explained to the patient the difference between the DIP urine and a formal UA. She notes understanding. Given her urinary incontinence that seems to be worsening I suggested she follow-up with urology. She plans on seeing one that her friend is seen in the vagina. Impression: 1. Urinary incontinence This note was generated with Dragon dictation software. It may contain incorrect words, spelling, and punctuation that were not noted in review of the chart prior to signing ED Disposition - Plan for ED Patient: Disposition: Home or Assisted Living Chief Complaint: Flank Pain Instructions: ED Bladder Instability Female Referrals: Kaylin Correia, AERONAUTICAL RESEARCH ENGINEER-C [Primary Care Provider] - As soon as possible What to do if you have Problems For any increased pain, shortness of breath, bleeding, nausea or vomiting, chest pain, or any unexpected problems, contact your Primary Care Provider. Call [facility] ([phone]) or report to the closest Emergency Room. Call 911 if necessary. 05/30/17 1453 <Electronically signed by Wagner Porter DO> Date Wagner Porter DO Cosigner Signature (If Indicated): Date CC: Kaylin KEARNEY EMERGENCY DEPARTMENT Observed: 05/30/2017 Status: F Source: [place] SUMMARY 4:01 AM [facility] REPOSITORY [facility] Medical Records Department [address] [place] [address] Emergency Department Summary 05/30/17 0358 MR#: [id number] Acct: [id number] Name: MALAIKA KEY Rep #: [id number] : 1970 46 From: Agapito Grady MD PCP: Kaylin Rangel Status: PRE ER - ER Visit Summary Date of Service: 05/30/17 Chief Complaint: I think I am going through withdrawal History of Present Illness: The patient is a 46 F who presents with concern for benzodiazepine withdrawal. She takes Klonopin. She states that she has been out for 2 days. She last had 60 tablets filled in February. She takes 0.5 mg per day. She has been out for 2 days because she missed her appointment with the counseling center. Today she felt anxious and shaky. She had a anxiety-induced seizure. 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 A family member was looking online and read about benzodiazepine withdrawal potential being life-threatening so EMS was called. The patient reports nausea and diarrhea over the last couple of days. Review of systems otherwise negative. No fever chest pain shortness of breath. Physical Examination: Afebrile vitals are normal normal blood pressure normal heart rate Skin normal no diaphoresis Alert and oriented she does not appear confused she is speaking clearly Patient is anxious and tearful Heart regular rate and rhythm Lungs are clear Abdomen soft Test Results: Not indicated Emergency Department Course and Treatment: Patient has been out of her Klonopin for 2 days and presents with normal vital signs and a benign physical examination. She is on a low dose at home. Based on clinical presentation I do not believe she has an acute benzodiazepine withdrawal. In regards to her seizures she does report a history of pseudoseizures which have been triggered by stress or anxiety. She does not have an epileptic disorder. There was no tongue biting or incontinence. She was given a dose of Klonopin here and advised to call the counseling center this morning. She understands to return for new or worsening symptoms. Treatment Plan: [] Disposition: Discharge Impression: Anxiety Pseudoseizures This note was generated with Mobifusion dictation software. It may contain incorrect words, spelling, and punctuation that were not noted in review of the chart prior to signing ED Disposition - Plan for ED Patient: Chief Complaint: Seizure Referrals: Kaylin Correia, AERONAUTICAL RESEARCH ENGINEER-C [Primary Care Provider] - What to do if you have Problems For any increased pain, shortness of breath, bleeding, nausea or vomiting, chest pain, or any unexpected problems, contact your Primary Care Provider. Call [facility] ([phone]) or report to the closest Emergency Room. Call 911 if necessary. 05/30/17 0401 <Electronically signed by Agapito Grady MD> Date Agapito Grady MD Cosigner Signature (If Indicated): Date CC: Kaylin KEARNEY DISCHARGE INSTRUCTION Observed: 05/30/2017 Status: F Source: [place] 4:01 AM [facility] REPOSITORY [facility] Medical Records Department [address] [place] [address] Discharge Instruction 05/30/17400 MR#: [id number] Acct: [id number] Name: MALAIKA KEY Radha Rep #: [id number] : 1970 46 From: Agapito Grady MD PCP: Kaylin Rangel Status: PRE ER ED Disposition - Plan for ED Patient: Chief Complaint: Seizure Instructions: ED Panic Attack Referrals: Kaylin Correia, AERONAUTICAL RESEARCH ENGINEER-C [Primary Care Provider] - What to do if you have Problems For any increased pain, shortness of breath, bleeding, nausea or vomiting, chest pain, or any unexpected problems, contact your Primary Care Provider. Call [facility] Registry ([phone]) or report to the closest Emergency Room. Call 911 if necessary. 05/30/17400 <Electronically signed by Agapito Grady MD> Date Agapito Grady MD Cosigner Signature (If Indicated): Date CC: Kaylin KEARNEY ABDOMEN/PELVIS WITHOUT Observed: 05/23/2017 Status: F Source: [place] CONT 10:51 PM [facility] REPOSITORY [facility] Imaging Services [address] [place] [address] Abdomen/Pelvis without Cont MR#: [id number] Acct: [id number] Name: MALAIKA KEY Radha Rep #: [id number] : 1970 F 46 From: Andreas Yo DO PCP: Kaylin Rangel Status: REG ER Study: Abdomen/Pelvis without Cont Date of Exam: 05/23/17 Exam# [id number] Ordering Dr: Wagner Porter DO STUDY: CT ABDOMEN AND PELVIS WITHOUT CONTRAST REASON FOR EXAM: Female, 46 years old. Left flank pain, hematuria RADIATION DOSAGE (If Supplied By Facility): CTDIvol = ( 6.40 ) mGy, DLP = ( 297.34 ) mGycm TECHNIQUE: Transaxial images were obtained from the dome of the diaphragm to the symphysis pubis without oral contrast, and without intravenous contrast. Sagittal and coronal images were reconstructed. Individualized dose optimization techniques were used for this CT. COMPARISON: September 14, 2016. FINDINGS: The visualized lung bases are unremarkable. The visualized portions of the heart are within normal limits. Stable 1.2 cm probable cyst in the liver. Normal gallbladder and extrahepatic biliary system. Normal spleen. Normal pancreas. Normal bilateral adrenal glands. Stable probable extrarenal pelvis of the kidneys. No renal stones. Normal visualized stomach. Normal small intestine. Normal colon. The appendix is visualized and appears normal. Normal abdominal aorta. Normal inferior vena cava. Normal retroperitoneum. Normal urinary bladder. Normal abdominal wall. Normal osseous structures. CT/Abdomen/Pelvis without Cont IMPRESSION: Stable probable hepatic cyst. No hydronephrosis or renal calculi. Probable prominent extrarenal pelvis of the kidneys. Electronically Signed: Andreas Yo DO at 23:49 EDT Tel [phone], Service support , CC: Wagner Porter DO; Kaylin KEARNEY Pattern Setter: Signed URINALYSIS, COMPLETE Collected: 05/23/2017 Status: F Source: [place] 10:28 PM [facility] REPOSITORY Order Comment: Order Date: 05/23/17 How was Urine Obtained? CUT OUT WORKER TO SPECIFY TYPE CODE TESTS RESULT OUT OF RANGE REFERENCE UNITS LAB L400.3000 Yellow COLOR Normal Yellow LAB L400.3050 Clear Normal CLARITY Clear LAB L400.3200 Normal mg/dl Normal GLUCOSE, UR Normal LAB L400.3300 Negative mg/dL Normal BILIRUBIN URINE Negative LAB L400.3400 Negative mg/dl Normal KETONE UR Negative LAB L400.3465 1.002-1.030 Normal SP.GR. DIPSTX 1.015 LAB L400.3550 5.0 - 8.0 pH UR Normal 6.5 LAB L400.3600 Negative mg/dl PROT Normal DIPSTX Negative LAB L400.3700 Normal mg/dl High 1 UROBILI LAB L400.3750 Negative Normal NITRITE UR Negative LAB L400.3780 Negative /ul High 25 OCCULT BLOOD-UR LAB L400.3800 Negative /ul LEUK Normal ESTERASE Negative LAB L400.4050 0-5 /hpf WBC 0 Normal SEEN LAB L400.4100 0-5 /hpf 0 Normal RBC-UA SEEN LAB L400.4150 5-10 /hpf SQUAM 0 Normal EPI SEEN LAB L400.4300 None Seen /hpf 0 Normal BACTERIA SEEN LAB L400.4350 <or=2+ /hpf 0 Normal MUCUS, URINE SEEN Performed By: #### L400.0001 #### [facility] [address] [place], [address] PROGRESS Observed: 05/23/2017 Status: COMPLETED Source: [place] 8:24 PM [facility] REPOSITORY HNO ID: [id number] Author: Ursula Garcia Service: (none) Author Type: Nurse Practitioner Type: Progress Notes Filed: 05/23/2017 8:44 PM Note Text: Subjective HPI Pt presents with c/o left flank pain x 2 days. Pain progressively worse. Currently rates 09/20. Has not taken any OTC medications. Tactile fever began today. Denies urinary frequency, urgency, dysuria. Reports hx of extensive issues. States anxiety has been out of control since pain began. Today had 2 panic attacks. Review of Systems Constitutional: Positive for fever. Negative for chills. Gastrointestinal: Positive for nausea. Negative for abdominal pain and vomiting. Genitourinary: Positive for flank pain. Negative for dysuria, frequency, hematuria and urgency. Objective Physical Exam Constitutional: She is oriented to person, place, and time and well-developed, well-nourished, and in no distress. No distress (appears anxious, appears ill). Abdominal: There is CVA tenderness. Neurological: She is alert and oriented to person, place, and time. Skin: Skin is warm. She is diaphoretic. BP 102/64 Pulse 96 Temp 36.7 ?C (98 ?F) (Tympanic) Resp 18 Wt 62.1 kg (136 lb 12.8 oz) LMP 01/26/2010 BMI 22.08 kg/m2 .Patient presents with: lower back pain with chills: x 2-3 days-she thinks she may have a kidney infection PAST MEDICAL HISTORY Diagnosis Date - ANXIETY STATE NOS 02/18/2007 Pseudoseizures. - Anxiety state, unspecified 02/18/2007 - Arthritis - Arthritis - Congenital musculoskeletal deformity of spine - DDD (degenerative disc disease) 04/13/2009 - Degenerative disc disease - DEPRESSIVE DISORDER NEC 02/18/2007 Counselling Center: Schizoaffective, borderline personality, dissociative, PTSD. - Dysplasia of cervix, low grade (JON 1) 2009 - IDIOPATHIC SCOLIOSIS 2002 - Migraine 04/13/2009 - MYALGIA AND MYOSITIS NOS 2002 Fibromyalgia, Lumbago. - Personal history of alcoholism (HCC) - Pseudoseizure 04/01/2003 Video EEG - PTSD (post-traumatic stress disorder) - Scoliosis - Stroke (HCC) mild per pt - Vitamin D deficiency 04/14/2009 PAST SURGICAL HISTORY Procedure Laterality Date - DELIVERY ONLY , low cervical - DELIVERY ONLY , low cervical - DANDC, DIAG AND/OR THERAPEUTIC Dilation AND curettage - HYSTERECTOMY 2010 abnormal paps - LIGATE FALLOPIAN TUBE Tubal ligation - PAST SURGICAL HISTORY OF skin graft to ankle ALLERGIES Dilaudid [Hydromorphone Hcl]; Bactrim [Sulfamethoxazole-Trimethoprim]; Bees; Demerol [Meperidine (Pf)]; Effexor [Venlafaxine Hcl]; Flexeril [Cyclobenzaprine Hcl]; Gabapentin; Lactose; Lexapro [Escitalopram Oxalate]; Naprosyn [Naproxen]; Pexeva [Paroxetine]; Seroquel [Quetiapine Fumarate]; Tomato; Vistaril [Hydroxyzine Hcl]; Carbatral [Other]; Noraflex [Other] MEDICATIONS albuterol (PROVENTIL) 5 mg/mL nebu Inhale 0.5 mL as instructed one time only for 1 dose. 1 DOSE NOW - BACK OFFICE. PLACE 0.5 ML PER DROPPER AND 2.5 ML OF NORMAL SALINE INTO RESERVOIR. predniSONE (DELTASONE) 20 mg tablet 9 day taper: 3 tablets for three days; 2 tablets for 3 days; 1 tablet for three days. Nebulizer NEBULIZER FOR HOME USE. Asthma albuterol (PROVENTIL) 2.5 mg /3 mL (0.083 %) nebulizer solution Use 3 mL via nebulizer every 4 hours as needed for Wheezing/Shortness of Breath. Use over 5-15minutes. albuterol HFA (PROAIR HFA) 90 mcg/actuation inhaler Inhale 2 Puffs as instructed every 4 hours as needed. guaiFENesin (MUCINEX) 600 mg 12 hr tablet Take 2 tablets by mouth twice daily. benzonatate (TESSALON PERLE) 100 mg capsule Take 1-2 capsules by mouth three times daily as needed. aspirin, enteric coated (ASPIRIN, ENTERIC COATED) 81 mg EC tablet Take 81 mg by mouth once daily. SUMAtriptan (IMITREX) 50 mg tablet Take 1 tablet by mouth as needed for Migraine Headache (see administration instructions). rOPINIRole (REQUIP) 0.5 mg tablet Take 1 tablet by mouth twice daily. busPIRone (BUSPAR) 15 mg tablet Take 15 mg by mouth. 1/2 tab twice daily mirtazapine (REMERON) 15 mg tablet Take 15 mg by mouth daily at bedtime. phenazopyridine (PYRIDIUM) 200 mg tablet Take 1 tablet by mouth three times daily as needed. FAMILY HISTORY Problem Relation Age of Onset - Adopted: Yes - Diabetes Sister - Cancer Mother of pancreatic cancer - Heart Brother Possibably has cancer as well Social History Substance Use Topics - Smoking status: Current Every Day Smoker Packs/day: 1.50 Years: 20.00 Types: Cigarettes - Smokeless tobacco: Never Used - Alcohol use No Comment: Patient is a recovering alcoholic. She is sober as of 03/2007 ASSESSMENT/PLAN: 1. Fever, unspecified fever cause - ICD9: 780.60, ICD10: R50.9 (primary diagnosis) 2. Lt flank pain - ICD9: 789.09, ICD10: R10.9 - UA DIP B/O - small blood - URINE CULTURE 3. LAKISHA (generalized anxiety disorder) - ICD9: 300.02, ICD10: F41.1 Pt referred to ED at this time for further evaluation d/t acute pain, fever and anxiety. Concern for pyelopnephritis. Ursula Garcia APRN.CNP CNOV Observed: 05/23/2017 Status: COMPLETED Source: [place] 8:00 PM [facility] REPOSITORY Office Visit (WSTR) MALAIKA KEY ([id number]) 1970 F Date Time Provider Department 05/23/17 8:00 PM URSULA GARCIA [facility] During your visit today, we recorded the following information about you: Temperature Pulse Respiration Blood pressure 98 degrees 96/minute 18/minute 102/64 Weight 62.1 kg Ursula Garcia APRN.CNP 05/23/2017 8:44 PM Signed Subjective HPI Pt presents with c/o left flank pain x 2 days. Pain progressively worse. Currently rates 8/10. Has not taken any OTC medications. Tactile fever began today. Denies urinary frequency, urgency, dysuria. Reports hx of extensive issues. States anxiety has been out of control since pain began. Today had 2 panic attacks. Review of Systems Constitutional: Positive for fever. Negative for chills. Gastrointestinal: Positive for nausea. Negative for abdominal pain and vomiting. Genitourinary: Positive for flank pain. Negative for dysuria, frequency, hematuria and urgency. Objective Physical Exam Constitutional: She is oriented to person, place, and time and well-developed, well-nourished, and in no distress. No distress (appears anxious, appears ill). Abdominal: There is CVA tenderness. Neurological: She is alert and oriented to person, place, and time. Skin: Skin is warm. She is diaphoretic. BP 102/64 Pulse 96 Temp 36.7 ?C (98 ?F) (Tympanic) Resp 18 Wt 62.1 kg (136 lb 12.8 oz) LMP 01/26/2010 BMI 22.08 kg/m2 .Patient presents with: lower back pain with chills: x 2-3 days-she thinks she may have a kidney infection PAST MEDICAL HISTORY Diagnosis Date - ANXIETY STATE NOS 02/18/2007 Pseudoseizures. - Anxiety state, unspecified 02/18/2007 - Arthritis - Arthritis - Congenital musculoskeletal deformity of spine - DDD (degenerative disc disease) 04/13/2009 - Degenerative disc disease - DEPRESSIVE DISORDER NEC 02/18/2007 Counselling Center: Schizoaffective, borderline personality, dissociative, PTSD. - Dysplasia of cervix, low grade (JON 1) 2009 - IDIOPATHIC SCOLIOSIS 2002 - Migraine 04/13/2009 - MYALGIA AND MYOSITIS NOS 2002 Fibromyalgia, Lumbago. - Personal history of alcoholism (HCC) - Pseudoseizure 04/01/2003 Video EEG - PTSD (post-traumatic stress disorder) - Scoliosis - Stroke (HCC) mild per pt - Vitamin D deficiency 04/14/2009 PAST SURGICAL HISTORY Procedure Laterality Date - DELIVERY ONLY , low cervical - DELIVERY ONLY , low cervical - DANDamp;C, DIAG AND/OR THERAPEUTIC Dilation ANDamp; curettage - HYSTERECTOMY 2010 abnormal paps - LIGATE FALLOPIAN TUBE Tubal ligation - PAST SURGICAL HISTORY OF skin graft to ankle ALLERGIES Dilaudid [Hydromorphone Hcl]; Bactrim [Sulfamethoxazole-Trimethoprim]; Bees; Demerol [Meperidine (Pf)]; Effexor [Venlafaxine Hcl]; Flexeril [Cyclobenzaprine Hcl]; Gabapentin; Lactose; Lexapro [Escitalopram Oxalate]; Naprosyn [Naproxen]; Pexeva [Paroxetine]; Seroquel [Quetiapine Fumarate]; Tomato; Vistaril [Hydroxyzine Hcl]; Carbatral [Other]; Noraflex [Other] MEDICATIONS albuterol (PROVENTIL) 5 mg/mL nebu Inhale 0.5 mL as instructed one time only for 1 dose. 1 DOSE NOW - BACK OFFICE. PLACE 0.5 ML PER DROPPER AND 2.5 ML OF NORMAL SALINE INTO RESERVOIR. predniSONE (DELTASONE) 20 mg tablet 9 day taper: 3 tablets for three days; 2 tablets for 3 days; 1 tablet for three days. Nebulizer NEBULIZER FOR HOME USE. Asthma albuterol (PROVENTIL) 2.5 mg /3 mL (0.083 %) nebulizer solution Use 3 mL via nebulizer every 4 hours as needed for Wheezing/Shortness of Breath. Use over 5-15minutes. albuterol HFA (PROAIR HFA) 90 mcg/actuation inhaler Inhale 2 Puffs as instructed every 4 hours as needed. guaiFENesin (MUCINEX) 600 mg 12 hr tablet Take 2 tablets by mouth twice daily. benzonatate (TESSALON PERLE) 100 mg capsule Take 1-2 capsules by mouth three times daily as needed. aspirin, enteric coated (ASPIRIN, ENTERIC COATED) 81 mg EC tablet Take 81 mg by mouth once daily. SUMAtriptan (IMITREX) 50 mg tablet Take 1 tablet by mouth as needed for Migraine Headache (see administration instructions). rOPINIRole (REQUIP) 0.5 mg tablet Take 1 tablet by mouth twice daily. busPIRone (BUSPAR) 15 mg tablet Take 15 mg by mouth. 1/2 tab twice daily mirtazapine (REMERON) 15 mg tablet Take 15 mg by mouth daily at bedtime. phenazopyridine (PYRIDIUM) 200 mg tablet Take 1 tablet by mouth three times daily as needed. FAMILY HISTORY Problem Relation Age of Onset - Adopted: Yes - Diabetes Sister - Cancer Mother of pancreatic cancer - Heart Brother Possibably has cancer as well Social History Substance Use Topics - Smoking status: Current Every Day Smoker Packs/day: 1.50 Years: 20.00 Types: Cigarettes - Smokeless tobacco: Never Used - Alcohol use No Comment: Patient is a recovering alcoholic. She is sober as of 03/2007 ASSESSMENT/PLAN: 1. Fever, unspecified fever cause - ICD9: 780.60, ICD10: R50.9 (primary diagnosis) 2. Lt flank pain - ICD9: 789.09, ICD10: R10.9 - UA DIP B/O - small blood - URINE CULTURE 3. LAKISHA (generalized anxiety disorder) - ICD9: 300.02, ICD10: F41.1 Pt referred to ED at this time for further evaluation d/t acute pain, fever and anxiety. Concern for pyelopnephritis. Ursula Garcia APRN.MANDARIN CHINESE [employer] Referring Provider: SELF [[id number]] Allergies As of Date: 05/23/2017 Noted Allergy Reaction DILAUDID (HYDROMORPHONE HCL) 02/18/2007 BACTRIM (SULFAMETHOXAZOLE-TRIMETH*02/18/2007 BEES 02/18/2007 DEMEROL (MEPERIDINE (PF)) 12/28/2005 EFFEXOR (VENLAFAXINE HCL) 12/28/2005 FLEXERIL (CYCLOBENZAPRINE HCL) 08/14/2011 2 - Rash GABAPENTIN 08/14/2011 2 - Rash LACTOSE 12/28/2005 LEXAPRO (ESCITALOPRAM OXALATE) 12/28/2005 NAPROSYN (NAPROXEN) 08/14/2011 2 - Rash PEXEVA (PAROXETINE) 02/18/2007 SEROQUEL (QUETIAPINE FUMARATE) 08/14/2011 2 - Rash TOMATO 06/27/2015 8 - GI Upset Comments: Tomato sauce VISTARIL (HYDROXYZINE HCL) 12/28/2005 carbatral [Other] 12/28/2005 noraflex [Other] 12/28/2005 Date Reviewed: 05/23/2017 Reviewed by: Yasmeen Nunez LPN - Fully Assessed Reason for Visit: lower back pain with chills [Other] Cmt: x 2-3 days-she thinks she may have a kidney infection Primary Visit Diagnosis:Fever, unspecified fever cause [R50.9] Other Visit Diagnoses:Lt flank pain [R10.9] LAKISHA (generalized anxiety disorder) [F41.1] Order(s):UA DIP B/O [[id number]] Order #: [id number] URINE CULTURE [SQURCUL] Order #: [id number] Prescriptions as of 05/23/2017 Sig: ALBUTEROL SULFATE CONCENTRATE* Inhale 0.5 mL as instructed o* PREDNISONE 20 MG TABLET 9 day taper: 3 tablets for th* COMPOUNDED PRESCRIPTION NEBULIZER FOR HOME USE. Asth* ALBUTEROL SULFATE 2.5 MG/3 ML* Use 3 mL via nebulizer every * ALBUTEROL SULFATE HFA 90 MCG/* Inhale 2 Puffs as instructed * GUAIFENESIN ER 600 MG TABLET,* Take 2 tablets by mouth twice* BENZONATATE 100 MG CAPSULE Take 1-2 capsules by mouth th* ASPIRIN 81 MG TABLET,DELAYED * Take 81 mg by mouth once leslie* SUMATRIPTAN 50 MG TABLET Take 1 tablet by mouth as nee* ROPINIROLE 0.5 MG TABLET Take 1 tablet by mouth twice * BUSPIRONE 15 MG TABLET Take 15 mg by mouth. 1/2 tab * MIRTAZAPINE 15 MG TABLET Take 15 mg by mouth daily at * PHENAZOPYRIDINE 200 MG TABLET Take 1 tablet by mouth three * Problem List As Of Date 05/23/2017 Noted Resolved Myalgia and myositis [[id number]] INVALID FOR* More... IDIOPATHIC SCOLIOSIS [M41.20] INVALID FOR* DRUG ERUPTION///DRUG DERMATITIS NOS [L27.0] INVALID FOR* DYSCHROMIA UNSPECIFIED [L81.9] INVALID FOR* Anxiety State, Unspecified [F41.1] INVALID FOR* More... Depressive Disorder, not Elsewhere Classified [*INVALID FOR* More... DDD (Degenerative Disc Disease) [[id number]] INVALID FOR* Migraine [G43.909] INVALID FOR* Vitamin D Deficiency [E55.9] INVALID FOR* Fibrocystic breast disease [N60.19] INVALID FOR* Encounter Status:Closed by URSULA GARCIA CNP on 05/23/17 Observed: 05/23/2017 Status: F Source: [place] URINE CULTURE 2:30 AM [facility] REPOSITORY Sp. Request/Comment: - Specimen received in preservative Culture Result - No growth (<1,000 CFU/ml) Performed By: #### URCUL #### [facility] [address] [place], [place] [address] PROGRESS Observed: 03/01/2017 Status: COMPLETED Source: [place] 5:28 PM [facility] REPOSITORY HNO ID: [id number] Author: Vicki Ferrer) Lewis Service: (none) Author Type: Nurse Practitioner Type: Progress Notes Filed: 03/01/2017 5:34 PM Note Text: HPI Patient is a 46 year old male here today for SOB. States she has had flu in the last 2 weeks. + smoker. States wheezing and SOB. States she is out or Albuterol at home. Patient states she is asthmatic. + cough and wheeze. Nothing makes it better or worse. No other concerns at this time. Review of Systems Constitutional: Positive for chills and malaise/fatigue. Negative for fever. HENT: Negative for congestion and sore throat. Respiratory: Positive for cough, sputum production, shortness of breath and wheezing. Cardiovascular: Negative. Musculoskeletal: Negative for myalgias. Neurological: Negative for headaches. Endo/Heme/Allergies: Negative for environmental allergies. All other systems reviewed and are negative. PAST MEDICAL HISTORY Diagnosis Date - ANXIETY STATE NOS 02/18/2007 Pseudoseizures. - Anxiety state, unspecified 02/18/2007 - Arthritis - Arthritis - Congenital musculoskeletal deformity of spine - DDD (degenerative disc disease) 04/13/2009 - Degenerative disc disease - DEPRESSIVE DISORDER NEC 02/18/2007 Counselling Center: Schizoaffective, borderline personality, dissociative, PTSD. - Dysplasia of cervix, low grade (JON 1) 2009 - IDIOPATHIC SCOLIOSIS 2002 - Migraine 04/13/2009 - MYALGIA AND MYOSITIS NOS 2002 Fibromyalgia, Lumbago. - Personal history of alcoholism (HCC) - Pseudoseizure 04/01/2003 Video EEG - PTSD (post-traumatic stress disorder) - Scoliosis - Stroke (HCC) mild per pt - Vitamin D deficiency 04/14/2009 PAST SURGICAL HISTORY Procedure Laterality Date - DELIVERY ONLY , low cervical - DELIVERY ONLY , low cervical - DANDC, DIAG AND/OR THERAPEUTIC Dilation AND curettage - HYSTERECTOMY 2010 abnormal paps - LIGATE FALLOPIAN TUBE Tubal ligation - PAST SURGICAL HISTORY OF skin graft to ankle ALLERGIES Dilaudid [Hydromorphone Hcl]; Bactrim [Sulfamethoxazole-Trimethoprim]; Bees; Demerol [Meperidine (Pf)]; Effexor [Venlafaxine Hcl]; Flexeril [Cyclobenzaprine Hcl]; Gabapentin; Lactose; Lexapro [Escitalopram Oxalate]; Naprosyn [Naproxen]; Pexeva [Paroxetine]; Seroquel [Quetiapine Fumarate]; Tomato; Vistaril [Hydroxyzine Hcl]; Carbatral [Other]; Noraflex [Other] MEDICATIONS aspirin, enteric coated (ASPIRIN, ENTERIC COATED) 81 mg EC tablet Take 81 mg by mouth once daily. SUMAtriptan (IMITREX) 50 mg tablet Take 1 tablet by mouth as needed for Migraine Headache (see administration instructions). rOPINIRole (REQUIP) 0.5 mg tablet Take 1 tablet by mouth twice daily. busPIRone (BUSPAR) 15 mg tablet Take 15 mg by mouth. 1/2 tab twice daily mirtazapine (REMERON) 15 mg tablet Take 15 mg by mouth daily at bedtime. azithromycin (ZITHROMAX Z-XIAO) 250 mg tablet Take 2 tablets day one, then, 1 tablet daily until gone. predniSONE (DELTASONE) 20 mg tablet 9 day taper: 3 tablets for three days; 2 tablets for 3 days; 1 tablet for three days. Nebulizer NEBULIZER FOR HOME USE. Asthma albuterol (PROVENTIL) 2.5 mg /3 mL (0.083 %) nebulizer solution Use 3 mL via nebulizer every 4 hours as needed for Wheezing/Shortness of Breath. Use over 5-15minutes. albuterol HFA (PROAIR HFA) 90 mcg/actuation inhaler Inhale 2 Puffs as instructed every 4 hours as needed. guaiFENesin (MUCINEX) 600 mg 12 hr tablet Take 2 tablets by mouth twice daily. benzonatate (TESSALON PERLE) 100 mg capsule Take 1-2 capsules by mouth three times daily as needed. phenazopyridine (PYRIDIUM) 200 mg tablet Take 1 tablet by mouth three times daily as needed. FAMILY HISTORY Problem Relation Age of Onset - Adopted: Yes - Diabetes Sister - Cancer Mother of pancreatic cancer - Heart Brother Possibably has cancer as well Social History Substance Use Topics - Smoking status: Current Every Day Smoker Packs/day: 1.50 Years: 20.00 Types: Cigarettes - Smokeless tobacco: Never Used - Alcohol use No Comment: Patient is a recovering alcoholic. She is sober as of 03/2007 BP 110/70 Pulse 70 Temp 36.8 ?C (98.3 ?F) (Tympanic) Resp 16 Wt 61.6 kg (135 lb 12.8 oz) LMP 01/26/2010 BMI 21.92 kg/m2 Physical Exam Constitutional: She is oriented to person, place, and time and well-developed, well-nourished, and in no distress. Vital signs are normal. Mildly ill. HENT: Head: Normocephalic and atraumatic. Right Ear: Tympanic membrane, external ear and ear canal normal. Left Ear: Tympanic membrane, external ear and ear canal normal. Nose: No mucosal edema or rhinorrhea. Right sinus exhibits no maxillary sinus tenderness and no frontal sinus tenderness. Left sinus exhibits no maxillary sinus tenderness and no frontal sinus tenderness. Mouth/Throat: Uvula is midline, oropharynx is clear and moist and mucous membranes are normal. Neck: Neck supple. Cardiovascular: Normal rate, regular rhythm and normal heart sounds. Pulmonary/Chest: She has wheezes. Bilateral wheezes noted through out. Diminished and course Air exchange noted throughout. SpO2 97 % on room air. Patient given in office albuterol nebulizer. Post treatment patient respiratory status improved. Patient seems to be breathing comfortable. SpO2 100% on room air. Lymphadenopathy: Head (right side): No submental, no submandibular and no tonsillar adenopathy present. Head (left side): No submental, no submandibular and no tonsillar adenopathy present. She has no cervical adenopathy. Neurological: She is alert and oriented to person, place, and time. Skin: Skin is warm and dry. Nursing note and vitals reviewed. ASSESSMENT/PLAN: 1. Acute bronchitis, unspecified organism - ICD9: 466.0, ICD10: J20.9 (primary diagnosis) - Will begin Antibiotic (see orders) - Will give oral steroid (see orders) - Albuterol Inhaler as directed (see orders) - Nebulizer and Albuterol solution ordered for home use- Q 4-6 hours prn for cough and wheeze. Advised at least 3-4 treatments while waking hours for the next 2-3 days. May stop sooner if symptoms have improved - OTC Mucinex to thin secretions - Vargas Lu (see orders) - Fluids and rest - Humidifier to the environemnt - Vicks Vapo-Rubs PRN - Deep breathing exercises discussed - Follow with PCP in 2-3 days if no improvement or fever begins - AZITHROMYCIN 250 MG TABLET - PREDNISONE 20 MG TABLET - COMPOUNDED PRESCRIPTION - ALBUTEROL SULFATE 2.5 MG/3 ML (0.083 %) SOLUTION FOR NEBULIZATION - ALBUTEROL SULFATE HFA 90 MCG/ACTUATION AEROSOL INHALER - GUAIFENESIN ER 600 MG TABLET, EXTENDED RELEASE 12 HR - BENZONATATE 100 MG CAPSULE 2. Smoker - ICD9: 305.1, ICD10: F17.200 - Cessation discussed - Possible COPD like symptoms Prescription instructions reviewed with patient as applicable. Patient advised if symptoms do not improve or if symptoms worsen sooner, to contact their primary care physician. Potential red flag symptoms discussed with the patient. Reviewed appropriate action plan to take if red flag symptoms occur. Patient agreeable to treatment plan. Total time evaluating, treating, and educating patient exceeds 25 minutes Vicki Saucedo CNP CNOV Observed: 03/01/2017 Status: COMPLETED Source: [place] 3:45 PM [facility] REPOSITORY Office Visit (WSTR) MALAIKA KEY ([id number]) 1970 F Date Time Provider Department 03/01/17 3:45 PM VICKI SAUCEDO (KATHY) [facility] During your visit today, we recorded the following information about you: Temperature Pulse Respiration Blood pressure 98.3 degrees 70/minute 16/minute 110/70 Weight 61.6 kg Flavio Pierce Ma 03/01/2017 4:46 PM Signed Albuterol solution aerosol treatment given per doctor's order at 4:05pm. Prior to treatment,, O2 sat is 97% . Vital signs: . Treatment completed at 4:15pm. O2 sat is 100 %.Tolerated well. Vicki Saucedo CNP 03/01/2017 5:34 PM Signed HPI Patient is a 46 year old male here today for SOB. States she has had flu in the last 2 weeks. + smoker. States wheezing and SOB. States she is out or Albuterol at home. Patient states she is asthmatic. + cough and wheeze. Nothing makes it better or worse. No other concerns at this time. Review of Systems Constitutional: Positive for chills and malaise/fatigue. Negative for fever. HENT: Negative for congestion and sore throat. Respiratory: Positive for cough, sputum production, shortness of breath and wheezing. Cardiovascular: Negative. Musculoskeletal: Negative for myalgias. Neurological: Negative for headaches. Endo/Heme/Allergies: Negative for environmental allergies. All other systems reviewed and are negative. PAST MEDICAL HISTORY Diagnosis Date - ANXIETY STATE NOS 02/18/2007 Pseudoseizures. - Anxiety state, unspecified 02/18/2007 - Arthritis - Arthritis - Congenital musculoskeletal deformity of spine - DDD (degenerative disc disease) 04/13/2009 - Degenerative disc disease - DEPRESSIVE DISORDER NEC 02/18/2007 Counselling Center: Schizoaffective, borderline personality, dissociative, PTSD. - Dysplasia of cervix, low grade (JON 1) 2009 - IDIOPATHIC SCOLIOSIS 2002 - Migraine 04/13/2009 - MYALGIA AND MYOSITIS NOS 2002 Fibromyalgia, Lumbago. - Personal history of alcoholism (HCC) - Pseudoseizure 04/01/2003 Video EEG - PTSD (post-traumatic stress disorder) - Scoliosis - Stroke (HCC) mild per pt - Vitamin D deficiency 04/14/2009 PAST SURGICAL HISTORY Procedure Laterality Date - DELIVERY ONLY , low cervical - DELIVERY ONLY , low cervical - DANDamp;C, DIAG AND/OR THERAPEUTIC Dilation ANDamp; curettage - HYSTERECTOMY HX 2010 abnormal paps - LIGATE FALLOPIAN TUBE Tubal ligation - PAST SURGICAL HISTORY OF skin graft to ankle ALLERGIES Dilaudid [Hydromorphone Hcl]; Bactrim [Sulfamethoxazole-Trimethoprim]; Bees; Demerol [Meperidine (Pf)]; Effexor [Venlafaxine Hcl]; Flexeril [Cyclobenzaprine Hcl]; Gabapentin; Lactose; Lexapro [Escitalopram Oxalate]; Naprosyn [Naproxen]; Pexeva [Paroxetine]; Seroquel [Quetiapine Fumarate]; Tomato; Vistaril [Hydroxyzine Hcl]; Carbatral [Other]; Noraflex [Other] MEDICATIONS aspirin, enteric coated (ASPIRIN, ENTERIC COATED) 81 mg EC tablet Take 81 mg by mouth once daily. SUMAtriptan (IMITREX) 50 mg tablet Take 1 tablet by mouth as needed for Migraine Headache (see administration instructions). rOPINIRole (REQUIP) 0.5 mg tablet Take 1 tablet by mouth twice daily. busPIRone (BUSPAR) 15 mg tablet Take 15 mg by mouth. 1/2 tab twice daily mirtazapine (REMERON) 15 mg tablet Take 15 mg by mouth daily at bedtime. azithromycin (ZITHROMAX Z-XIAO) 250 mg tablet Take 2 tablets day one, then, 1 tablet daily until gone. predniSONE (DELTASONE) 20 mg tablet 9 day taper: 3 tablets for three days; 2 tablets for 3 days; 1 tablet for three days. Nebulizer NEBULIZER FOR HOME USE. Asthma albuterol (PROVENTIL) 2.5 mg /3 mL (0.083 %) nebulizer solution Use 3 mL via nebulizer every 4 hours as needed for Wheezing/Shortness of Breath. Use over 5-15minutes. albuterol HFA (PROAIR HFA) 90 mcg/actuation inhaler Inhale 2 Puffs as instructed every 4 hours as needed. guaiFENesin (MUCINEX) 600 mg 12 hr tablet Take 2 tablets by mouth twice daily. benzonatate (TESSALON PERLE) 100 mg capsule Take 1-2 capsules by mouth three times daily as needed. phenazopyridine (PYRIDIUM) 200 mg tablet Take 1 tablet by mouth three times daily as needed. FAMILY HISTORY Problem Relation Age of Onset - Adopted: Yes - Diabetes Sister - Cancer Mother of pancreatic cancer - Heart Brother Possibably has cancer as well Social History Substance Use Topics - Smoking status: Current Every Day Smoker Packs/day: 1.50 Years: 20.00 Types: Cigarettes - Smokeless tobacco: Never Used - Alcohol use No Comment: Patient is a recovering alcoholic. She is sober as of 03/2007 BP 110/70 Pulse 70 Temp 36.8 ?C (98.3 ?F) (Tympanic) Resp 16 Wt 61.6 kg (135 lb 12.8 oz) LMP 01/26/2010 BMI 21.92 kg/m2 Physical Exam Constitutional: She is oriented to person, place, and time and well-developed, well-nourished, and in no distress. Vital signs are normal. Mildly ill. HENT: Head: Normocephalic and atraumatic. Right Ear: Tympanic membrane, external ear and ear canal normal. Left Ear: Tympanic membrane, external ear and ear canal normal. Nose: No mucosal edema or rhinorrhea. Right sinus exhibits no maxillary sinus tenderness and no frontal sinus tenderness. Left sinus exhibits no maxillary sinus tenderness and no frontal sinus tenderness. Mouth/Throat: Uvula is midline, oropharynx is clear and moist and mucous membranes are normal. Neck: Neck supple. Cardiovascular: Normal rate, regular rhythm and normal heart sounds. Pulmonary/Chest: She has wheezes. Bilateral wheezes noted through out. Diminished and course Air exchange noted throughout. SpO2 97 % on room air. Patient given in office albuterol nebulizer. Post treatment patient respiratory status improved. Patient seems to be breathing comfortable. SpO2 100% on room air. Lymphadenopathy: Head (right side): No submental, no submandibular and no tonsillar adenopathy present. Head (left side): No submental, no submandibular and no tonsillar adenopathy present. She has no cervical adenopathy. Neurological: She is alert and oriented to person, place, and time. Skin: Skin is warm and dry. Nursing note and vitals reviewed. ASSESSMENT/PLAN: 1. Acute bronchitis, unspecified organism - ICD9: 466.0, ICD10: J20.9 (primary diagnosis) - Will begin Antibiotic (see orders) - Will give oral steroid (see orders) - Albuterol Inhaler as directed (see orders) - Nebulizer and Albuterol solution ordered for home use- Q 4-6 hours prn for cough and wheeze. Advised at least 3-4 treatments while waking hours for the next 2-3 days. May stop sooner if symptoms have improved - OTC Mucinex to thin secretions - Vargas Lu (see orders) - Fluids and rest - Humidifier to the environemnt - Vicks Vapo-Rubs PRN - Deep breathing exercises discussed - Follow with PCP in 2-3 days if no improvement or fever begins - AZITHROMYCIN 250 MG TABLET - PREDNISONE 20 MG TABLET - COMPOUNDED PRESCRIPTION - ALBUTEROL SULFATE 2.5 MG/3 ML (0.083 %) SOLUTION FOR NEBULIZATION - ALBUTEROL SULFATE HFA 90 MCG/ACTUATION AEROSOL INHALER - GUAIFENESIN ER 600 MG TABLET, EXTENDED RELEASE 12 HR - BENZONATATE 100 MG CAPSULE 2. Smoker - ICD9: 305.1, ICD10: F17.200 - Cessation discussed - Possible COPD like symptoms Prescription instructions reviewed with patient as applicable. Patient advised if symptoms do not improve or if symptoms worsen sooner, to contact their primary care physician. Potential red flag symptoms discussed with the patient. Reviewed appropriate action plan to take if red flag symptoms occur. Patient agreeable to treatment plan. Total time evaluating, treating, and educating patient exceeds 25 minutes KATHY Aarngo CNP 03/02/2017 1:49 PM Signed Addended by: VICKI SAUCEDO CNP on: 03/02/2017 01:49 PM Modules accepted: Orders Marine Joseph LPN 03/02/2017 1:52 PM Signed 2.5mg solution aerosol treatment given per doctor's order. Prior to treatment, O2 sat is 97% on room air. Treatment completed . Tolerated well. Referring Provider: SELF [200] Allergies As of Date: 03/01/2017 Noted Allergy Reaction DILAUDID (HYDROMORPHONE HCL) 02/18/2007 BACTRIM (SULFAMETHOXAZOLE-TRIMETH*02/18/2007 BEES 02/18/2007 DEMEROL (MEPERIDINE (PF)) 12/28/2005 EFFEXOR (VENLAFAXINE HCL) 12/28/2005 FLEXERIL (CYCLOBENZAPRINE HCL) 08/14/2011 2 - Rash GABAPENTIN 08/14/2011 2 - Rash LACTOSE 12/28/2005 LEXAPRO (ESCITALOPRAM OXALATE) 12/28/2005 NAPROSYN (NAPROXEN) 08/14/2011 2 - Rash PEXEVA (PAROXETINE) 02/18/2007 SEROQUEL (QUETIAPINE FUMARATE) 08/14/2011 2 - Rash TOMATO 06/27/2015 8 - GI Upset Comments: Tomato sauce VISTARIL (HYDROXYZINE HCL) 12/28/2005 carbatral [Other] 12/28/2005 noraflex [Other] 12/28/2005 Date Reviewed: 03/01/2017 Reviewed by: Vicki Ferrer) Lewis - Fully Assessed Reason for Visit: Cough [28] Cmt: x3 weeks Primary Visit Diagnosis:Acute bronchitis, unspecified organism [J20.9] Other Visit Diagnosis:Smoker [F17.200] Order(s):azithromycin (ZITHROMAX Z-XIAO) 250 mg tabletTake 2 tablets day one, then, 1 tablet daily until gone.Disp: 1 PackageRfl: 0 predniSONE (DELTASONE) 20 mg tablet9 day taper: 3 tablets for three days; 2 tablets for 3 days; 1 tablet for three days.Disp: 18 tabletRfl: 0 NebulizerNEBULIZER FOR HOME USE. AsthmaDisp: 1 KitRfl: 0 albuterol (PROVENTIL) 2.5 mg /3 mL (0.083 %) nebulizer solutionUse 3 mL via nebulizer every 4 hours as needed for Wheezing/Shortness of Breath. Use over 5-15minutes.Disp: 1 PackageRfl: 0 albuterol HFA (PROAIR HFA) 90 mcg/actuation inhalerInhale 2 Puffs as instructed every 4 hours as needed.Disp: 1 InhalerRfl: 0 guaiFENesin (MUCINEX) 600 mg 12 hr tabletTake 2 tablets by mouth twice daily.Disp: 30 tabletRfl: 0 benzonatate (TESSALON PERLE) 100 mg capsuleTake 1- 2 capsules by mouth three times daily as needed.Disp: 30 capsuleRfl: 0 albuterol (PROVENTIL) 5 mg/mL nebuInhale 0.5 mL as instructed one time only for 1 dose. 1 DOSE NOW - BACK OFFICE. PLACE 0.5 ML PER DROPPER AND 2.5 ML OF NORMAL SALINE INTO RESERVOIR.Disp: 0.5 mLRfl: 0 Prescriptions as of 03/01/2017 Sig: ASPIRIN 81 MG TABLET,DELAYED * Take 81 mg by mouth once leslie* SUMATRIPTAN 50 MG TABLET Take 1 tablet by mouth as nee* ROPINIROLE 0.5 MG TABLET Take 1 tablet by mouth twice * BUSPIRONE 15 MG TABLET Take 15 mg by mouth. 1/2 tab * MIRTAZAPINE 15 MG TABLET Take 15 mg by mouth daily at * ALBUTEROL SULFATE CONCENTRATE* Inhale 0.5 mL as instructed o* AZITHROMYCIN 250 MG TABLET Take 2 tablets day one, then,* PREDNISONE 20 MG TABLET 9 day taper: 3 tablets for th* COMPOUNDED PRESCRIPTION NEBULIZER FOR HOME USE. Asth* ALBUTEROL SULFATE 2.5 MG/3 ML* Use 3 mL via nebulizer every * ALBUTEROL SULFATE HFA 90 MCG/* Inhale 2 Puffs as instructed * GUAIFENESIN ER 600 MG TABLET,* Take 2 tablets by mouth twice* BENZONATATE 100 MG CAPSULE Take 1-2 capsules by mouth th* PHENAZOPYRIDINE 200 MG TABLET Take 1 tablet by mouth three * Medication notes this encounter PHENAZOPYRIDINE 200 MG TABLET >> Flavio Pierce Ma 03/01/2017 3:41 PM >> FLAVIO PIERCE MA Mar 01, 2017 3:41 PM Not taking Problem List As Of Date 03/01/2017 Noted Resolved Myalgia and myositis [JHJ1741] INVALID FOR* More... IDIOPATHIC SCOLIOSIS [M41.20] INVALID FOR* DRUG ERUPTION///DRUG DERMATITIS NOS [L27.0] INVALID FOR* DYSCHROMIA UNSPECIFIED [L81.9] INVALID FOR* Anxiety State, Unspecified [F41.1] INVALID FOR* More... Depressive Disorder, not Elsewhere Classified [*INVALID FOR* More... DDD (Degenerative Disc Disease) [NIL5692] INVALID FOR* Migraine [G43.909] INVALID FOR* Vitamin D Deficiency [E55.9] INVALID FOR* Fibrocystic breast disease [N60.19] INVALID FOR* Visit Notes: >> Flavio Pierce Ma Fri Mar 01, 2017 4:44 PM Status: Signed Albuterol solution aerosol treatment given per doctor's order at 4:05pm. Prior to treatment,, O2 sat is 97% . Vital signs: . Treatment completed at 4:15pm. O2 sat is 100 %.Tolerated well. >> Marine Joseph LPN Sat Mar 02, 2017 1:50 PM Status: Signed 2.5mg solution aerosol treatment given per doctor's order. Prior to treatment, O2 sat is 97% on room air. Treatment completed . Tolerated well. Prescriptions ordered this encounter Disp Refills Start End AZITHROMYCIN 250 MG TABLET 1 Pa* 0 03/01/2017 03/06/2017 Sig: Take 2 tablets day one, then, 1 tablet daily until gone. PREDNISONE 20 MG TABLET 18 t* 0 03/01/2017 Si day taper: 3 tablets for three days; 2 tablets for 3 days; 1 tablet for three days. COMPOUNDED PRESCRIPTION 1 Kit 0 03/01/2017 Class: Print RX Sig: NEBULIZER FOR HOME USE. Asthma ALBUTEROL SULFATE 2.5 MG/3 ML (0.083* 1 Pa* 0 03/01/2017 Route: NEBULIZATION Sig: Use 3 mL via nebulizer every 4 hours as needed for Wheezing/Shortness of Breath. Use over 5-15minutes. ALBUTEROL SULFATE HFA 90 MCG/ACTUATI* 1 In* 0 03/01/2017 Route: INHALATION Sig: Inhale 2 Puffs as instructed every 4 hours as needed. GUAIFENESIN ER 600 MG TABLET, EXTEND* 30 t* 0 03/01/2017 Route: ORAL Sig: Take 2 tablets by mouth twice daily. BENZONATATE 100 MG CAPSULE 30 c* 0 03/01/2017 Route: ORAL Sig: Take 1-2 capsules by mouth three times daily as needed. ALBUTEROL SULFATE CONCENTRATE 5 MG/M* 0.5 * 0 03/02/2017 03/02/2017 Class: Back Office Route: INHALATION Sig: Inhale 0.5 mL as instructed one time only for 1 dose. 1 DOSE NOW - BACK OFFICE. PLACE 0.5 ML PER DROPPER AND 2.5 ML OF NORMAL SALINE INTO RESERVOIR. Encounter Status:Closed by VICKI SAUCEDO CNP on 03/01/17 ALLERGIES ALLERGIES DATE TYPE / CODE NAME / CODE REACTION SEVERITY SOURCE Drug hydroxyzine Other Unknown [place] 8 Allergy/938955323( HCl/[id number](RXNOR [facility]) M) Hospital Repository Drug hydroxyzine Other Unknown [place] 8 Allergy/596792905( pamoate/S631712844(R [facility]) XNORM) Hospital Repository Drug meperidine Other Unknown [place] 8 Allergy/948563211( HCl/R588263600(RXNOR [facility]) M) Hospital Repository Drug hydromorphone Other Unknown [place] 8 Allergy/714794224( HCl/B790489230(RXNOR [facility]) M) Hospital Repository Drug cyclobenzaprine Other Unknown [place] 8 Allergy/706775503( HCl/B707177059(RXNOR [facility]) M) Hospital Repository Drug venlafaxine Other Unknown [place] 8 Allergy/964692286( HCl/E282516691(RXNOR [facility]) M) Hospital Repository Drug quetiapine Other Unknown [place] 8 Allergy/999912406( fumarate/G049170927( [facility]) RXNORM) Hospital Repository Drug paroxetine Other Unknown [place] 8 Allergy/945797427( mesylate/Y030864381( [facility]) RXNORM) Hospital Repository Drug escitalopram Other Unknown [place] 8 Allergy/913022826( oxalate/M452114834(R [facility]) XNORM) Hospital Repository Drug Influenza Virus Hives Unknown [place] 8 Allergy/297517569( Vaccines/V076008701( [facility]) RXNORM) Hospital Repository Drug naproxen/A857613570( Other Unknown [place] 8 Allergy/590857717( RXNORM) [facility] Repository Drug lactose/L238839314(R Other Unknown [place] 8 Allergy/643801214( XNORM) [facility]) [facility] Repository Drug sulfamethoxazole/F00 Other Unknown [place] 8 Allergy/216592106( 0294098(RXNORM) [facility]) [facility] Repository Drug trimethoprim/U232557 Other Unknown [place] 8 Allergy/430916276( 873(RXNORM) [facility]) [facility] Repository Drug gabapentin/F49528679 Other Unknown [place] 8 Allergy/203117985( 5(RXNORM) [facility] Repository Drug venom-honey Other Unknown [place] 8 Allergy/423267127( bee/A073221575(RXNOR [facility]) M) Hospital Repository Miscellaneous carbatral Other Unknown [place] 8 Allergy/582171119( [facility]) Hospital Repository Miscellaneous noraflex Other Unknown [place] 8 Allergy/574279344( [facility]) [facility] Repository DRUG TOMATO GI [place] INGREDI/667763923( Clinic Main SNOM[facility]) [place] Repository DRUG CYCLOBENZAPRINE HCL [place] INGREDI/058861994( Clinic Main SNOMED [facility]) [place] Repository DRUG GABAPENTIN [place] INGREDI/245002240( Clinic Main SNOMED [facility]) [place] Repository DRUG NAPROXEN [place] INGREDI/834494007( [facility] Main SNOM[facility]) [place] Repository DRUG QUETIAPINE FUMARATE [place] INGREDI/444558719( [facility] SNOM[facility]) [place] Repository DRUG HYDROMORPHONE HCL [place] INGREDI/900103212( [facility] Main SNOMED CT) [place] Repository DRUG/184337760(SNO SULFAMETHOXAZOLE-TRI [place] [address]) METHOPRIM Clinic Main [place] Repository Environ/578636687( BEES [place] [address]) Clinic Main [place] [facility] DRUG PAROXETINE [place] INGREDI/440839437( [facility] Main SNOMED CT) [place] Repository DRUG/087445514(SNO MEPERIDINE (PF) [place] [address]) Clinic Main [place] Repository DRUG VENLAFAXINE HCL [place] INGREDI/529432770( [facility] Main SNOMED CT) [place] Repository DRUG LACTOSE [place] INGREDI/561917832( [facility] Main SNOMED CT) [place] Repository DRUG ESCITALOPRAM OXALATE [place] INGREDI/896108568( [facility] Main SNOMED CT) [place] Repository DRUG HYDROXYZINE HCL [place] INGREDI/990623006( [facility] Main SNOMED CT) [place] Repository Miscellaneous OTHER [place] 6 Allergy/421252222( [facility] Main SNOMED CT) [place] Repository ENCOUNTERS ENCOUNTERS ADMIT/DISCHARGE ACCOUNT ADMITTING ENCOUNTER LOCATION SOURCE NUMBER CLASS 01/22/2018/01/24/[id number] Repository 01/06/2018/01/08/20 [id number] Emergency [address] ing:ED Repository 11/05/2017/11/06/[id number] [place] Repository 11/05/2017/11/06/[id number] [place] Repository 10/08/2017/10/10/19 [id number] Emergency [address] ing:ED Repository 09/16/2017/09/18/19 [id number] Emergency [address] ing:ED Repository 09/02/2017/09/04/19 [id number] Ambulatory [address] [place] Repository 08/09/2017/08/10/19 [id number] [address]ulatory [address] Repository 08/09/2017/08/13/19 [id number] Ambulatory [address] Repository 08/09/2017/08/10/19 [id number] Ambulatory [address] Repository 07/20/2017/07/21/19 [id number] Emergency [place] Abd[place] [address] [place] [address] ing:ED Repository 06/03/2017 [id number] Ambulatory [facility] Repository 06/03/2017/06/05/19 [id number] Ambulatory [address] Repository 05/31/2017/06/04/19 [id number] Ambulatory [address] Repository 05/30/2017/05/31/19 [id number] Emergency [place] ing:ED Repository 05/23/2017/05/25/19 [id number] Emergency [place] [address] [place] [address] ing:ED Repository 05/23/2017/05/25/19 [id number] Ambulatory [address] Repository 03/01/2017/03/04/19 [id number] Ambulatory [address] Repository PAYERS PAYERS ENCOUNTER GUARANTOR PAYER SUBSCRIBER SOURCE 01/06/2018 MALAIKA L Primary MALAIKA L [place] [id number] Insurance:CARESOURCEP BOOTHEDOB: [facility] Number: [id number] [id number] Repository 30610Myl: ([phone]) Date:2018-01-06P O [phone] () [address]ATTN: [place] [address]LY: 01/06/2018 Secondary NOT GIVENUNK [place] Insurance:SELF PAY [facility] Number: Effective Repository Date:2018-01-06 10/08/2017 MALAIKA L Primary MALAIKA L [place] [id number] Insurance:CARESOURCEP BOOTHOB: [facility] Number: [id number] [id number] Repository 34097Bfb: ([phone]) Date:2017-10-08P O [phone] () [address]ATTN: [place] [address]RQ: 10/08/2017 Secondary NOT GIVENUNK [place] Insurance:SELF PAY [facility] Number: Effective Repository Date:2017-10-08 09/16/2017 MALAIKA L Primary MALAIKA L [place] [id number] Insurance:CARESOURCEP BOOTHEDOB: [facility] Number: [id number] [id number] Repository 89756Tfw: ([phone]) Date:2017-09-16P O [phone] () [address]ATTN: [place] [address]DL: 09/16/2017 Secondary NOT GIVENUNK [place] Insurance:SELF PAY [facility] Number: Effective Repository Date:2017-09-16 07/20/2017 MALAIKA L Primary MALAIKA L [place] [id number] Insurance:CARESOURCEP BOOTHEDOB: [facility] Number: [id number] [id number] Repository 08[address]Hsq: ([phone]) Date:2017-07-20P O [phone] () [address]ATTN: [place] [address]SC: 07/20/2017 Secondary NOT GIVENUNK [place] Insurance:SELF PAY [facility] Number: Effective Repository Date:2017-07-20 05/30/2017 MALAIKA L Primary MALAIKA L [place] [id number] Insurance:CARESOURCEP BOOTHEDOB: [facility] Number: [id number] [id number] Repository 27635Knm: ([phone]) Date:2017-05-30P O [phone] () [address]ATTN: [place] [address]EP: 05/30/2017 Secondary NOT GIVENUNK [place] Insurance:SELF PAY [facility] Number: Effective Repository Date:2017-05-30 05/23/2017 MALAIKA L Primary MALAIKA L [place] [id number] Insurance:CARESOURCEP [facility]OTHEDOB: [facility]acob Number: [id number], [place] [id number] Repository [address]Fxh: ([phone]) Date:2017-05-23 O [phone] () [address]ATTN: [place] [address]FS: 05/23/2017 Secondary NOT GIVENUNK [place] Insurance:SELF PAY [facility] Number: Effective Repository Date:2017-05-23
== END 2018-01-07 00:21 | disposition home or self-care (01) ==
LOC: ED 01-07 00:02
PROVIDERS: Emergency Provider Emergency Medicine; Family Provider Family Medicine; PCP Family Medicine
DX: M54.16 Radiculopathy, lumbar region (principal); S39.012A Strain of muscle, fascia and tendon of lower back, initial encounter; X58.XXXA Exposure to other specified factors, initial encounter; M41.9 Scoliosis, unspecified; Z72.0 Tobacco use; F41.9 Anxiety disorder, unspecified
CPT/HCPCS: 96372; 99282

== ENCOUNTER 2018-03-12 14:38 | Emergency (ER) | payer MEDICAID, SELFPAY ==
[2018-03-12 14:39] VITALS: BP 107/68; PULSE 75; RESP 16; TEMP 36.9; O2SAT 98; BMI 23.3
[2018-03-12] MEDS: HYDROcodone Bitartrate/Apap 5/325 Tablet PO (15:12)
--- NOTE | 2018-03-12 15:15 | RAD_ITS ---
STUDY: X-RAY - RIGHT WRIST REASON FOR EXAM: Female, 47 years old. 3 day history of pain. No known injury. TECHNIQUE: 3 view(s) of the wrist were obtained. COMPARISON: None. FINDINGS: Normal visualized distal radius and ulna. Normal radiocarpal articulation. Normal distal radioulnar articulation. Normal carpal bones. Normal carpal articulations. Normal carpometacarpal articulation of the thumb. Normal second through fifth carpometacarpal articulations. Normal visualized metacarpal bones. The soft tissue structures are unremarkable. RAD/Wrist min 3 Views IMPRESSION: Normal x-ray examination of the wrist. Electronically Signed: Dionte Hodgson MD at 15:31 EST , Service support ,
--- NOTE | 2018-03-12 15:20 | RAD_ITS ---
STUDY: X-RAY - RIGHT RADIUS AND ULNA REASON FOR EXAM: Female, 47 years old. 3 day history of pain. No known injury. TECHNIQUE: 2 view(s) of the forearm. COMPARISON: None. FINDINGS: There is no demonstrated soft tissue swelling. Normal visualized radius. Normal visualized ulna. RAD/Forearm 2 Views IMPRESSION: Normal x-ray examination of the radius and ulna. Electronically Signed: Dionte Hodgson MD at 15:31 EST , Service support ,
--- NOTE | 2018-03-12 16:11 | ED.DCSUM_ITS ---
- ER Visit Summary Date of Service: 03/12/18 Chief Complaint: Pain History of Present Illness: The patient is a 47 F with right wrist pain for 3 days. The patient fell but is not sure if she injured her right wrist during the fall. The pain starts in her right wrist and radiates up her right forearm. Worse with use and movement. No history of this. Mild swelling to the forearm but no other associated symptoms. No skin breaks. No injections. No fever or systemic symptoms. No weakness or numbness. Physical Examination: Afebrile and vital signs unremarkable. Inspection is normal. Skin appears intact and normal. No redness or warmth. She has severe pain with light touch to her forearm and wrist. Range of motion intact. Neurovascularly intact distally. Test Results: X-rays of her wrist and forearm were unremarkable. Emergency Department Course and Treatment: Patient treated with [place] and an ice pack while awaiting results. X-rays negative. No sign of fracture. Nothing to suggest DVT. Pulses strong and capillary refill normal. Skin normal. No redness or warmth. Nothing to suggest septic joint or gout. Compartments soft. Patient may have a sprain of her wrist. We will treat with a short course of pain medicine. Rest, ice, elevate. Splint. Follow-up with primary care. Return for any new or worsening issues. Treatment Plan: As above Disposition: Discharge Impression: 1. Right wrist pain This note was generated with Swing by Swing dictation software. It may contain incorrect words, spelling, and punctuation that were not noted in review of the chart prior to signing ED Disposition - Plan for ED Patient: Chief Complaint: Upper Extremity Injury Referrals: Rao Corona MD [Primary Care Provider] -
--- NOTE | 2018-03-12 16:12 | DCINST.ED_ITS ---
ED Disposition - Plan for ED Patient: Chief Complaint: Upper Extremity Injury Instructions: ED Sprain Wrist Prescriptions: Hydrocodone Bitart/Apap 5-325 [[place] 5MG-325MG] 1 tab PO Q6H PRN PRN 2 Days #8 tab PRN Reason: Pain Referrals: Rao Corona MD [Primary Care Provider] -
[2018-03-12 16:28] VITALS: PULSE 74; RESP 16; O2SAT 98
== END 2018-03-12 16:29 | disposition home or self-care (01) ==
LOC: ED 15:56
PROVIDERS: Emergency Provider Emergency Medicine; Family Provider Family Medicine; PCP Family Medicine
DX: M25.531 Pain in right wrist (principal); Z86.73 Personal history of transient ischemic attack (TIA), and cerebral infarction without residual deficits; Z72.0 Tobacco use
CPT/HCPCS: 73090; 73110; 99283

== ENCOUNTER 2019-09-21 15:29 | Emergency (ER) | payer MEDICAID, SELFPAY ==
[2019-09-21] VITALS (7 sets, daily range): BP systolic 92–126; BP diastolic 66–87; PULSE 76–93; RESP 12–18; TEMP 36.4; O2SAT 95–99; BMI 26.8
--- NOTE | 2019-09-21 15:35 | EKG12_ITS ---
Test Reason : CP Blood Pressure : / mmHG Vent. Rate : 079 BPM Atrial Rate : 079 BPM P-R Int : 152 ms QRS Dur : 074 ms QT Int : 380 ms P-R-T Axes : 062 027 032 degrees QTc Int : 435 ms Normal sinus rhythm Normal ECG Confirmed by EARLENE BLANK, DWAYNE ([id number]), map editor SENAIT ROSARIO ([id number]) on 09/23/2019 1:35:00 PM Referred By: ALMA Confirmed By:DWAYNE HENAO MD
--- NOTE | 2019-09-21 15:51 | ED.DCSUM_ITS ---
History of Present Illness Chief Complaint: General Illness Detail of Chief Complaint: Chest pain Informant: Patient Onset: Hours Context: Sudden Onset Timing: Continuous Quality: Pressure sensation Location: Midsternal Current Severity: Mild Maximum Severity: Severe Worsened by: Nothing Relieved by: Nothing Associated Symptoms: Dyspnea and nausea without radiation Narrative: Patient is a 48-year-old woman who presents with midsternal chest discomfort that started this morning while at rest described as a pressure sensation with dyspnea and nausea. Patient is a smoker. She denies history of coronary disease. She denies history of reflux, hiatal hernia or peptic ulcer disease. She denies black or maroon stool. She denies history of VTE. She denies leg pain, swelling discoloration. She has not had a cardiac cath in the past. She is a smoker. She denies infectious symptoms. She denies pleuritic chest pain. She is still having discomfort. She received 4 baby aspirin in route and 1 nitro glycerin sublingual tablet. She states the sublingual tablet decreased her chest heaviness by 25%. Prior similar symptoms: No Recent Illness/Hospitalization: No - Past Medical History (1) Anxiety Status: Chronic (2) Fibromyalgia Status: Chronic (3) Idiopathic scoliosis Status: Chronic Past Medical History - Allergies and Home Meds Allergies/Adverse Reactions: Allergies cyclobenzaprine HCl [From Flexeril] Allergy (Verified 09/21/19 15:36) Other escitalopram oxalate [From Lexapro] Allergy (Verified 09/21/19 15:36) Other gabapentin Allergy (Verified 09/21/19 15:36) Other hydromorphone HCl [From Dilaudid] Allergy (Verified 09/21/19 15:36) Other hydroxyzine HCl [From Vistaril] Allergy (Verified 09/21/19 15:36) Other hydroxyzine pamoate [From Vistaril] Allergy (Verified 09/21/19 15:36) Other Influenza Virus Vaccines Allergy (Verified 09/21/19 15:36) Hives lactose Allergy (Verified 09/21/19 15:36) Other meperidine HCl [From Demerol] Allergy (Verified 09/21/19 15:36) Other naproxen [From Naprosyn] Allergy (Verified 09/21/19 15:36) Other paroxetine mesylate [From PEXEVA] Allergy (Verified 09/21/19 15:36) Other quetiapine fumarate [From Seroquel] Allergy (Verified 09/21/19 15:36) Other sulfamethoxazole [From Bactrim] Allergy (Verified 09/21/19 15:36) Other trimethoprim [From Bactrim] Allergy (Verified 09/21/19 15:36) Other venlafaxine HCl [From Effexor] Allergy (Verified 09/21/19 15:36) Other venom-honey bee [bee venom (honey bee)] Allergy (Verified 09/21/19 15:36) Other carbatral Allergy (Uncoded 09/21/19 15:36) Other noraflex Allergy (Uncoded 09/21/19 15:36) Other Primary Care Physician: Sharmin Ashton MD [Primary Care Provider] - Prior records reviewed: Yes Surgical History: no surgical history Lives: Alone Smoking Status: Current every day smoker Alcohol: None Drugs: None - Family History Maternal Family History: Reports: Unknown Paternal Family History: Reports: Unknown Sibling Family History: Reports: Diabetes, - - Pancreatic cancer. Review of Systems General: Denies: Chills, Fever, Malaise, Subjective Eyes: Denies: Visual changes - bilaterally, Blurred Vision - bilaterally ENT: Denies: Rhinorrhea, Sore throat Cardiovascular: Reports: Chest pain. Denies: Palpitations, Heart racing, -, - Respiratory: Reports: Dyspnea. Denies: Cough, Sputum, Dyspnea on exertion, Orthopnea, Paroxysmal nocturnal dyspnea, -, - Gastrointestinal: Reports: Nausea. Denies: Abdominal pain, Vomiting, Diarrhea, Constipation, Melena, Hematochezia, -, - Genitourinary: Denies: Dysuria, Hematuria, Frequency Musculoskeletal: Denies: Myalgias, Arthralgias, Neck pain, Back pain, Swelling, Extremity Pain, -, - Skin: Denies: Rash, Wounds Neurological: Denies: Headache, Weakness, Numbness Psych: Reports: Depression, Anxiety. Denies: Suicidal thoughts Endocrine: Denies: Polyuria, Polydipsia Physical Exam Vital Signs/Narrative: Vital Signs Temp Pulse Resp BP Pulse Ox 09/21/19 15:38 96 09/21/19 15:33 97.6 F L 84 18 106/87 H 95 Inital Vital Signs reviewed: Yes General: Well nourished, Well developed, No Acute Distress Head: Normocephalic, Atraumatic Eyes: Perrl, EOMI ENT: Moist mucous membranes, No rhinorrhea Neck: Supple, Nontender Cardiovascular: Regular rate, Regular rhythm, No murmurs, Normal S1, Normal S2 Respiratory: No distress, CTA bilaterally, Chest nontender Abdomen: Soft, Nontender, Nondistended, Normal bowel sounds Back: Nontender, Normal Inspection Extremities: Nontender, No edema, - - There is no asymmetry, swelling, discoloration, leg vein distention, palpable cords or tenderness along the distribution of the deep venous system. Skin: Normal color, No rash, No Trauma. Negative for: Cyanosis, Diaphoresis, Jaundice Neurological: Alert, Oriented x3, Cranial nerves II-XII grossly intact, Normal Strength, Normal Sensation, Normal DTR Psychological: Normal affect, Normal Mood Diagnostic/Tx/Re-eval Impressions Chest X-Ray 09/21/19 16:12 IMPRESSION: Normal x-ray examination of the chest. Electronically Signed: Caden Gates MD at 16:23 EDT Tel , Service support , 09/21/19 16:12 Chest 1 View (Portable) [RAD] Stat Laboratory Results 09/21/19 09/21/19 16:10 16:10 WBC 5.2 RBC 4.43 Hgb 12.5 Hct 39.0 MCV 88.0 MCH 28.2 MCHC 32.1 RDW Std Deviation 42.5 RDW Coeff of Daniel 13.2 Plt Count 179 MPV 10.9 Immature Gran % (Auto) 0.400 Neut % (Auto) 63.4 Lymph % (Auto) 27.6 [place] % (Auto) 6.6 Eos % (Auto) 1.4 Baso % (Auto) 0.6 Absolute Neuts (auto) 3.3 Absolute Lymphs (auto) 1.43 Nucleated RBC % 0 Sodium 144 Potassium 3.7 Chloride 110 H Carbon Dioxide 30.0 Anion Gap 4 L BUN 13 Creatinine 0.82 Estim Creat Clear Calc 76.84 Est GFR (MDRD) Af Amer 95 Est GFR (MDRD) Non-Af 78 BUN/Creatinine Ratio 15.9 Glucose 94 Calcium 8.8 Troponin I < 0.015 First troponin was obtained 6.5 hours after the onset of pain. The troponin is normal. Patient's heart score is 2. Plan is 3-hour troponin. If 3-hour troponin and EKG are normal she will be discharged to home. - EKG Initial EKG Interpretation: Sinus Rhythm - Sinus rhythm with a ventricular rate of 79. ID interval is 152 ms. QRS duration 74 ms. QT duration 380 ms. [place] is normal. The EKG is normal. - Medical Decision Making Diagnosis includes angina, GI etiology, pulmonary etiology. With improvement with nitro will obtain cardiac markers, EKG and chest x-ray. Case was turned over to the evening physician Dr. Michael Sweeney to make disposition once 3-hour troponin and EKG are back. Plan is if normal discharge to home if abnormal consult hospitalist and cardiology for admission. ED Disposition - Plan for ED Patient: Diagnosis: Midsternal chest pain Referrals: Sharmin Ashton MD [Primary Care Provider] -
--- NOTE | 2019-09-21 16:12 | RAD_ITS ---
STUDY: X-RAY CHEST REASON FOR EXAM: Female, 48 years old. CHEST PRESSURE, FATIGUE, N/V TECHNIQUE: Single AP portable view of the chest. COMPARISON: 01/04/2017 FINDINGS: The lungs are clear and expanded. There is no demonstrated pleural abnormality. Normal size heart. Normal mediastinum and lissette. Normal visualized pulmonary arteries. Normal visualized aortic arch and descending thoracic aorta. Normal visualized thoracic spine. Normal visualized ribs, clavicles, and shoulders. There is no demonstrated abnormality of the visualized soft tissue structures of the upper abdomen. RAD/Chest 1 View (Portable) IMPRESSION: Normal x-ray examination of the chest. Electronically Signed: Caden Gates MD at 16:23 EDT Tel , Service support ,
[2019-09-21 16:15] LABS: Absolute Lymphocyte Count 1.43 X10^3/uL (0.83-4.51); Absolute Neutrophil Count 3.3 X10^3/uL (2.0-7.7); Basophil# 0.03 X10^3/uL; Basophil% 0.6 % (0-1); Eosinophil# 0.07 X10^3/uL; Eosinophils% 1.4 % (0-5); Hemoglobin 12.5 g/dL (12.0-15.0); Lymphocyte # 1.43 X10^3/ul (4.0); Lymphocyte % 27.6 % (19-41); Mean Corp Hgb Conc 32.1 g/dL (32-36); Mean Corpuscular Hgb 28.2 pg (27.0-32.0); Mean Platelet Vol. 10.9 fl (6.2-12.0); Monocyte# 0.34 X10^3/uL; Monocyte% 6.6 % (0-10); NRBC Flagged by Analyzer 0 % (0-5); Neutrophil # 3.29 X10^3/uL (2.7-7.7); Neutrophil % 63.4 % (47-70); Platelet Count 179 K/mm3 (150-450); RBC Distribution Width CV 13.2 % (11.6-14.6); RBC Distribution Width SD 42.5 fl (35.1-43.9); Red Blood Count 4.43 M/mm3 (4.2-5.4); White Blood Count 5.2 K/mm3 (4.4-11.0)
[2019-09-21] MEDS: Ondansetron 4 MG/2 ML Vial IV (16:29)
[2019-09-21 16:33] LABS: Anion Gap 4 (5-15); BUN 13 mg/dL (7-18); BUN/Creat Ratio 15.9 RATIO (10-20); Calcium,Total 8.8 mg/dL (8.5-10.1); Chloride 110 mmol/L (98-107); Creatinine, Serum 0.82 mg/dL (0.55-1.02); EST Glomerular Filtration Rate 78 mL/min (>60); Est Glom Filt Rate - Afr Amer 95 mL/min (>60); Estimated Creatinine Clearance 76.84 ml/min; Glucose 94 mg/dL (74-106); Potassium 3.7 mmol/L (3.5-5.1); Sodium Level 144 mmol/L (136-145)
--- NOTE | 2019-09-21 18:35 | EKG12_ITS ---
Test Reason : REPEAT EKG Blood Pressure : / mmHG Vent. Rate : 073 BPM Atrial Rate : 073 BPM P-R Int : 142 ms QRS Dur : 074 ms QT Int : 384 ms P-R-T Axes : 047 008 025 degrees QTc Int : 423 ms Normal sinus rhythm Normal ECG Confirmed by EARLENE BLANK, DWAYNE ([id number]), managing editor SENAIT ROSARIO ([id number]) on 09/23/2019 1:29:16 PM Referred By: Confirmed By:DWAYNE HENAO MD
== END 2019-09-21 19:39 | disposition home or self-care (01) ==
PROVIDERS: Emergency Provider Emergency Medicine; PCP Internal Medicine
DX: R07.2 Precordial pain (principal); F41.9 Anxiety disorder, unspecified; M79.7 Fibromyalgia; Z88.1 Allergy status to other antibiotic agents; Z88.2 Allergy status to sulfonamides; Z88.5 Allergy status to narcotic agent; Z88.6 Allergy status to analgesic agent; Z88.8 Allergy status to other drugs, medicaments and biological substances; M41.20 Other idiopathic scoliosis, site unspecified
CPT/HCPCS: 36415; 71045; 80048; 84484; 85025; 93005; 96374; 99285; A4216; J2405

== ENCOUNTER 2021-06-13 17:34 | Emergency (ER) | payer MEDICAID, SELFPAY ==
[2021-06-13 17:34] VITALS: BP 107/77; PULSE 74; RESP 17; TEMP 36.8; O2SAT 98; BMI 28.2
--- NOTE | 2021-06-13 17:46 | EDS_ITS ---
HPI History of Present Illness Chief Complaint: Lower Extremity Injury Informant: patient Onset/Context/Timing Onset: Hours Context: Sudden Onset Timing: Continuous Quality of Pain: Aching Location: Left greater trochanteric region Current Severity: Mild Maximum Severity: Severe Worsened by: Movement and especially weightbearing Relieved by: Meaning still Associated Symptoms Associated Symptoms: Positive for Loss of Funtion; Negative for Parasthesia and Weakness Narrative Narrative: Patient is a middle-aged woman with multiple medical problems who was told she needs to exercise. She went out for a long walk. She believes she overdid it. She reports hip pain that she localizes to the left greater trochanteric region after she completed her walk. She now states she cannot bear weight. There is no history of fall or trauma. She does have history of rheumatoid arthritis. She denies paresthesia, anesthesia motors. She denies foot drop. She denies radicular pain. Tetanus Immunization: 5-10 years Prior similar symptoms: No Recent Illness/Hospitalization: No PFSH PFSH Home Medications aspirin 81 mg PO DAILY@0800 09/11/14 [History Last Taken 01/03/17] mirtazapine 15 mg PO QHS PRN PRN 08/18/16 [History Last Taken 01/03/17] clonazepam [Klonopin] 0.5 mg PO BID 01/04/17 [History Last Taken 01/03/17] sertraline 50 mg PO DAILY 01/04/17 [History Last Taken 01/03/17] albuterol sulfate [Ventolin Hfa (SP)] 1 - 2 puff INHALATION Q4H PRN PRN 05/23/17 [History Last Taken Unknown] prednisone 60 mg PO DAILY #15 tablet 06/13/21 [Rx Last Taken Unknown] sumatriptan succinate mg PO 06/13/21 [History Last Taken Unknown] testosterone 06/13/21 [History Last Taken Unknown] Allergy/AdvReac Type Severity Reaction Status Date / Time cyclobenzaprine HCl Allergy Other Verified 06/13/21 17:37 [From Flexeril] escitalopram oxalate Allergy Other Verified 06/13/21 17:37 [From Lexapro] gabapentin Allergy Other Verified 06/13/21 17:37 hydromorphone HCl Allergy Other Verified 06/13/21 17:37 [From Dilaudid] hydroxyzine HCl Allergy Other Verified 06/13/21 17:37 [From Vistaril] hydroxyzine pamoate Allergy Other Verified 06/13/21 17:37 [From Vistaril] Influenza Virus Vaccines Allergy Hives Verified 06/13/21 17:37 lactose Allergy Other Verified 06/13/21 17:37 meperidine HCl [From Demerol] Allergy Other Verified 06/13/21 17:37 naproxen [From Naprosyn] Allergy Other Verified 06/13/21 17:37 paroxetine mesylate Allergy Other Verified 06/13/21 17:37 [From PEXEVA] quetiapine fumarate Allergy Other Verified 06/13/21 17:37 [From Seroquel] sulfamethoxazole Allergy Other Verified 06/13/21 17:37 [From Bactrim] trimethoprim [From Bactrim] Allergy Other Verified 06/13/21 17:37 venlafaxine HCl Allergy Other Verified 06/13/21 17:37 [From Effexor] venom-honey bee Allergy Other Verified 06/13/21 17:37 [bee venom (honey bee)] carbatral Allergy Other Uncoded 06/13/21 17:37 noraflex Allergy Other Uncoded 06/13/21 17:37 Social History (Updated 06/13/21 @ 17:[address] Ariel Mac MD) household members: significant other Smoking Status: Current every day smoker tobacco type: cigarettes substance use type: does not use ROS ROS ED Constitutional Constitutional ED: Denies chills, fever(s), subjective, sweats or weight loss Musculoskeletal Musculoskeletal: Reports other Details: Atraumatic left hip pain ; Denies arthralgias, back pain, myalgias or neck pain Integumentary Denies abscess, Abrasions or rash Neurologic Neurologic: Denies headache(s), paresthesias or weakness Hematologic/Lymphatic Hematologic/Lymphatic: Denies easy bleeding or easy bruising EXAM Physical Exam Const Vital Signs: 06/13/21 17:34 Temperature 98.2 F Temperature Source Temporal Pulse Rate 74 Respiratory Rate 17 Blood Pressure 107/77 Blood Pressure Mean 87 Pulse Ox 98 Oxygen Delivery Method Room Air Positive well nourished and well developed; Negative for obese or cachectic General Appearance ED: well developed and NAD; Negative for cachectic Nutritional Appearance: Negative for cachectic or obese HEENT HEENT Narrative: Ears normal. Nares patent. Mucosa moist. normocephalic and atraumatic Eyes PERRL Eyes Narrative: Extract muscle intact. Sclera is anicteric. Neck full ROM and supple Thyroid: Negative for tender Resp normal respiratory effort and clear to auscultation bilaterally Cardio regular rate, regular rhythm, S1 normal heart sound, S2 normal heart sound and no murmurs Extremity Negative for full ROM Extremity Narrative: There is pain no patient over the left greater trochanteric region. There is no warmth or fluctuance. Logrolling causes discomfort laterally. Patellar ankle reflex are 2+ symmetric. No rashes noted. General Extremety ED: Yes weight-bearing difficulty; Negative for cyanosis or edema General Extremity: weight-bearing difficulty; Negative for cyanosis or edema Neuro Deep Tendon Reflexes: Rt Patellar (L4): 2+, Lt Patellar (L4): 2+, Rt Ankle (S1): 2+ and Lt Ankle (S1): 2+ Deep Tendon Reflexes Back: Rt Patellar (L4): 2+, Lt Patellar (L4): 2+, Rt Ankle (S1): 2+ and Lt Ankle (S1): 2+ Psych Psych Narrative: Flat Skin no wounds Lesions: no lesions Rashes: no rashes MDM MDM MDM Narrative Medical decision making narrative: With history of rheumatoid arthritis may represent a pathologic fracture. X-ray was obtained. We will treat with prednisone if x-ray does not reveal any acute process since she has renal disease and 1 [place] was administered for pain now.. Radiography X-Ray: - (Three-view x-ray of the left hip was interpreted by me as negative. There is no arthritic changes, fracture subluxation or dislocation.) Discharge Plan Triage Chief Complaint: Lower Extremity Injury ED Provider: Ariel Mac Dx/Rx/DC Orders Clinical Impression: Greater trochanteric bursitis of left hip, Fibromyalgia, Anxiety Instructions: ED Bursitis Prescriptions: New prednisone 20 MG tablet 60 mg PO DAILY Qty: 15 RF: 0 No Action aspirin 81 MG tablet,chewable 81 mg PO DAILY@0800 RF: 0 mirtazapine 15 MG tablet 15 mg PO QHS PRN PRN (Reason: Sleep) RF: 0 clonazepam [Klonopin] 0.5 MG tablet 0.5 mg PO BID RF: 0 sertraline 50 MG tablet 50 mg PO DAILY RF: 0 albuterol sulfate [Ventolin HFA] 1 INHALER inhaler 1 - 2 puff inhalation Q4H PRN PRN (Reason: Sob &/Or Wheezing) RF: 0 sumatriptan succinate 50 mg tablet PO RF: 0 testosterone 1 % (50 mg/5 gram) gel in packet RF: 0 Primary Care Provider: Sharmin Ashton Referrals: Sharmin Ashton MD [Primary Care Provider] - 3-5 Days if not improving Disposition Disposition: Home, Self Care
[2021-06-13] MEDS: HYDROcodone Bitartrate/Apap 5/325 Tablet PO (17:48)
--- NOTE | 2021-06-13 17:52 | RAD_ITS ---
STUDY: AP PELVIS AND LEFT HIP X-RAY SERIES OF 1803 HOURS ON 06/13/2021 REASON FOR EXAM: 52-year-old female with injury and pain of the left hip. TECHNIQUE: 3 views of the pelvis and hip. COMPARISON: None. FINDINGS: No fractures or dislocations of the left hip. No pelvic bone fractures. The right hip has normal appearance. There is no evidence of left hip joint effusions. There is no evidence of neoplastic or inflammatory changes. There is no evidence of arthritic or degenerative changes. The sacroiliac joints are normal in appearance. The symphysis pubis is normal. Normal surrounding soft tissues. RAD/HIP, UNI W/ Pelvis 2-3 Views IMPRESSION: 1. Unremarkable examination. 2. No fractures or dislocations. 3. No inflammatory or neoplastic changes. 4. No arthritic or degenerative changes. Electronically Signed: Kwesi Bowden MD at 18:57 EDT ,
[2021-06-13 18:12] VITALS: BP 114/80; PULSE 74; RESP 18; O2SAT 99
== END 2021-06-13 18:33 | disposition home or self-care (01) ==
PROVIDERS: Emergency Provider Emergency Medicine; PCP Internal Medicine; Visit Provider Emergency Medicine
DX: M70.62 Trochanteric bursitis, left hip (principal); F41.9 Anxiety disorder, unspecified; N28.9 Disorder of kidney and ureter, unspecified; M79.7 Fibromyalgia; F17.210 Nicotine dependence, cigarettes, uncomplicated; N23 Unspecified renal colic
CPT/HCPCS: 73502; 99283

== ENCOUNTER 2021-07-10 08:44 | Emergency (ER) | payer MEDICAID, SELFPAY ==
[2021-07-10 08:44] VITALS: BP 116/89; PULSE 79; RESP 18; TEMP 36.8; O2SAT 98; BMI 32.1
--- NOTE | 2021-07-10 09:14 | US_ITS ---
STUDY: ABDOMINAL ULTRASOUND - RIGHT UPPER QUADRANT REASON FOR VISIT: Female, 50 years old PAIN TECHNIQUE: Ultrasound evaluation of the right upper quadrant was performed with real-time and static lyle-scale imaging. TECHNICAL QUALITY: Adequate. COMPARISON: None. FINDINGS: Liver: The liver measures cm. There is normal echogenicity of the liver. The bile ducts are within normal limits. There is hepatic color flow. The direction of portal flow is hepatopetal. . Gallbladder: Normal distended gallbladder. The gallbladder wall measures 2 mm. There is a negative sonographic Moreno''s sign. There is no pericholecystic fluid. There are no gallstones. Common Bile Duct (C.B.D.): The common bile duct measures 5 mm. Pancreas: Normal size of the head, body and tail of the pancreas. There is normal echogenicity of the pancreas. There is no demonstrated pancreatic mass or cyst. Right Kidney: Normal size of the right kidney. The right kidney measures 12.2 cm. Normal renal cortex. The right cortex measures 1.3 cm. There is no demonstrated renal mass or cyst. There is no right hydronephrosis. US/Gallbladder IMPRESSION: Normal right upper quadrant ultrasound examination. Electronically Signed: Caden Gates MD at 10:49 EDT ,
[2021-07-10] MEDS: Morphine 4 MG/ML Syringe IV ×2 (09:28→13:02)
[2021-07-10] MEDS: 0.9% Normal Saline 1,000 ML 125 ML IV (09:28)
[2021-07-10] MEDS: Ondansetron 4 MG/2 ML Vial IV (09:28)
[2021-07-10 09:29] LABS: Anion Gap 4 (5-15); BUN 12 mg/dL (7-18); BUN/Creat Ratio 11.3 RATIO (10-20); Calcium,Total 9.8 mg/dL (8.5-10.1); Chloride 109 mmol/L (98-107); Creatinine, Serum 1.06 mg/dL (0.55-1.02); EST Glomerular Filtration Rate 58 mL/min (>60); Est Glom Filt Rate - Afr Amer 70 mL/min (>60); Estimated Creatinine Clearance 58.12 ml/min; Glucose 117 mg/dL (74-106); Potassium 4.2 mmol/L (3.5-5.1); Sodium Level 140 mmol/L (136-145)
[2021-07-10 09:32] LABS: Absolute Lymphocyte Count 2.13 X10^3/uL (0.83-4.51); Absolute Neutrophil Count 9.7 X10^3/uL (2.0-7.7); Basophil# 0.04 X10^3/uL; Basophil% 0.3 % (0-1); Eosinophil# 0.04 X10^3/uL; Eosinophils% 0.3 % (0-5); Hematocrit 44.2 % (37-47); Hemoglobin 14.8 g/dL (12.0-15.0); Lymphocyte # 2.13 X10^3/ul (0.83-4.51); Lymphocyte % 17.1 % (19-41); Mean Corp Hgb Conc 33.5 g/dL (32-36); Mean Corpuscular Hgb 29.2 pg (27.0-32.0); Mean Corpuscular Volume 87.2 fL (81-99); Mean Platelet Vol. 11.3 fl (6.2-12.0); Monocyte# 0.48 X10^3/uL; Monocyte% 3.8 % (0-10); NRBC Flagged by Analyzer 0 % (0-5); Neutrophil # 9.72 X10^3/uL (2.7-7.7); Neutrophil % 77.9 % (47-70); Platelet Count 234 K/mm3 (150-450); RBC Distribution Width CV 13.7 % (11.6-14.6); RBC Distribution Width SD 43.7 fl (35.1-43.9); Red Blood Count 5.07 M/mm3 (4.2-5.4); White Blood Count 12.5 K/mm3 (4.4-11.0)
[2021-07-10 09:39] LABS: AST(SGOT) 14 U/L (15-37); Alanine Aminotransfer ALT/SGPT 24 U/L (13-56); Alkaline Phosphatase 74 U/L (45-117); Bilirubin, Direct 0.13 mg/dL (0.00-0.30); Globulin 3.5 g/dL (2.2-4.2); Lipase 92 U/L (73-393); Protein, Total 7.5 g/dL (6.4-8.2)
--- NOTE | 2021-07-10 09:50 | EDS_ITS ---
HPI HPI - GI History of Present Illness Chief Complaint: Abd Pain Informant: patient Narrative Narrative: Worsening abdominal pain throughout the night. Is been having intermittent symptoms for the past 4 days especially after meals. She ate dinner pain with time resolved with Tums. However yesterday ate a hotdog and pain has been persistent. She is unable to sleep throughout the night. No vomiting or diarrhea. History of lactose intolerance therefore does not eat dairy. Denies any previous similar symptoms in the past. Still has her gallbladder. States pain was more diffuse today. Only abdominal surgery C- sections. She has chronic back pain and therefore uses a wheelchair for long transport. She can weight-bear transport short distances. Multiple allergies has tolerated morphine and Zofran in the past. Prior similar symptoms: No PFSH PFSH Medical History PTSD (post-traumatic stress disorder) Home Medications mirtazapine 15 mg PO QHS PRN PRN 08/18/16 [History Last Taken 01/03/17] clonazepam [Klonopin] 0.5 mg PO BID 01/04/17 [History Last Taken 01/03/17] sertraline 50 mg PO DAILY 01/04/17 [History Last Taken 01/03/17] testosterone 1 tube TOPICAL DAILY 06/13/21 [History Last Taken Unknown] omeprazole 40 mg PO DAILY #30 cap 07/10/21 [Rx Last Taken Unknown] sucralfate [Carafate] 1 g PO BID #60 tab 07/10/21 [Rx Last Taken Unknown] Allergy/AdvReac Type Severity Reaction Status Date / Time cyclobenzaprine HCl Allergy Other Verified 07/10/21 08:47 [From Flexeril] escitalopram oxalate Allergy Other Verified 07/10/21 08:47 [From Lexapro] gabapentin Allergy Other Verified 07/10/21 08:47 hydromorphone HCl Allergy Other Verified 07/10/21 08:47 [From Dilaudid] hydroxyzine HCl Allergy Other Verified 07/10/21 08:47 [From Vistaril] hydroxyzine pamoate Allergy Other Verified 07/10/21 08:47 [From Vistaril] Influenza Virus Vaccines Allergy Hives Verified 07/10/21 08:47 lactose Allergy Other Verified 07/10/21 08:47 meperidine HCl [From Demerol] Allergy Other Verified 07/10/21 08:47 naproxen [From Naprosyn] Allergy Other Verified 07/10/21 08:47 paroxetine mesylate Allergy Other Verified 07/10/21 08:47 [From PEXEVA] quetiapine fumarate Allergy Other Verified 07/10/21 08:47 [From Seroquel] sulfamethoxazole Allergy Other Verified 07/10/21 08:47 [From Bactrim] trimethoprim [From Bactrim] Allergy Other Verified 07/10/21 08:47 venlafaxine HCl Allergy Other Verified 07/10/21 08:47 [From Effexor] venom-honey bee Allergy Other Verified 07/10/21 08:47 [bee venom (honey bee)] carbatral Allergy Other Uncoded 07/10/21 08:47 noraflex Allergy Other Uncoded 07/10/21 08:47 Social History household members: significant other Smoking Status: Current every day smoker tobacco type: cigarettes substance use type: does not use ROS ROS ED Constitutional Constitutional ED: Denies chills, fever(s) or sweats Eyes Eyes: Denies change in vision ENT ENT ED: Denies dysphagia or sore throat Cardiovascular Cardiovascular: Denies chest pain, leg edema, palpitations or racing heartbeat Respiratory/Chest Respiratory/Chest: Denies cough, dyspnea or dyspnea on exertion Gastrointestinal Gastrointestinal: Reports abdominal pain; Denies diarrhea, nausea or vomiting Genitourinary Genitourinary ED: Denies dysuria, hematuria or urinary frequency Musculoskeletal Musculoskeletal: Denies back pain, extremity pain or neck pain Integumentary Denies rash or wounds Neurologic Neurologic: Denies headache(s), paresthesias or weakness EXAM Physical Exam Const Vital Signs: 07/10/21 08:44 07/10/21 10:44 07/10/21 12:00 Temperature 98.2 F Temperature Source Temporal Pulse Rate 79 61 67 Respiratory Rate 18 16 18 Blood Pressure 116/89 H 130/78 H 120/71 Blood Pressure Mean 98 95 87 Pulse Ox 98 99 99 Oxygen Delivery Method Room Air Room Air Room Air 07/10/21 14:00 Temperature Temperature Source Pulse Rate 75 Respiratory Rate 18 Blood Pressure 115/78 Blood Pressure Mean 90 Pulse Ox 96 Oxygen Delivery Method Room Air Positive well nourished and well developed General Appearance ED: well developed and NAD HEENT Reports moist mucous membranes normocephalic and atraumatic Eyes PERRL, EOMs intact bilaterally and conjunctivae normal General Eye ED: Yes normal appearance of both eyes Neck no lymphadenopathy and supple General: Negative for tenderness Chest Wall Chest: Negative for tenderness Resp normal respiratory effort and normal air movement Effort and Inspection: symmetric chest movement; Negative for respiratory distress Cardio regular rate, regular rhythm and no murmurs Peripheral Pulses: pulses 2+ throughout GI normal to inspection, nondistended, normoactive bowel sounds GI Narrative: Tender across upper abdomen more so in the right upper quadrant. Negative McBurney's. Palpation: Negative for guarding or rebound tenderness present Back/Spine no CVA tenderness and no thoracic nor lumbar tenderness Extremity normal to inspection General Extremety ED: Negative for edema or tenderness General Extremity: Negative for edema Neuro oriented x3 and no sensory deficits noted Sensorium / Orientation: awake and alert Skin no rashes or lesions noted and no wounds MDM MDM MDM Narrative Medical decision making narrative: Patient pain in the upper quadrants with right upper quadrant pain on exam. Morphine Zofran and fluids started. Labs White count 12.5 lipase normal liver enzymes normal creatinine 1.06. Right upper quadrant ultrasound obtained for further evaluation. 1055: Results ultrasound was normal. On reevaluation pain was improving however still there. More right-sided. Will order CAT scan abdomen pelvis for further evaluation. 1400: CT scan negative.Urine noted 25 leuks with hematuria. She denies urinary symptoms. I sent for culture. Still had symptoms on reevaluation she is ordered for morphine and Pepcid, reevaluation mild pressure currently. Discussed the possibility of admission for HIDA scan with colic symptoms after meals. However she states she would like to try GI cocktail and reevaluated. This was ordered. Improving symptoms with a GI cocktail. Omeprazole Carafate written GI follow- up. Return precautions. All questions answered. Lab Data Attestation: I reviewed the patient's lab results. Labs: Laboratory Results - last 24 hr 07/10/21 07/10/21 07/10/21 09:05 09:05 09:05 WBC 12.5 H RBC 5.07 Hgb 14.8 Hct 44.2 MCV 87.2 MCH 29.2 MCHC 33.5 RDW Std Deviation 43.7 RDW Coeff of Daniel 13.7 Plt Count 234 MPV 11.3 Immature Gran % (Auto) 0.600 Neut % (Auto) 77.9 H Lymph % (Auto) 17.1 L [place] % (Auto) 3.8 Eos % (Auto) 0.3 Baso % (Auto) 0.3 Absolute Neuts (auto) 9.7 H Absolute Lymphs (auto) 2.13 Nucleated RBC % 0 Sodium 140 Potassium 4.2 Chloride 109 H Carbon Dioxide 27.0 Anion Gap 4 L BUN 12 Creatinine 1.06 H Estim Creat Clear Calc 58.12 Est GFR (MDRD) Af Amer 70 Est GFR (MDRD) Non-Af 58 L BUN/Creatinine Ratio 11.3 Glucose 117 H Calcium 9.8 Total Bilirubin 0.30 Direct Bilirubin 0.13 AST 14 L ALT 24 Alkaline Phosphatase 74 Total Protein 7.5 Albumin 4.0 Globulin 3.5 Lipase 92 Urine Color Urine Clarity Urine pH Ur Specific [place] Urine Protein Urine Glucose (UA) Urine Ketones Urine Occult Blood Urine Nitrite Urine Bilirubin Urine Urobilinogen Ur Leukocyte Esterase Urine RBC Urine WBC Ur Squamous Epith Cells Urine Bacteria Urine Mucus 07/10/21 11:51 WBC RBC Hgb Hct MCV MCH MCHC RDW Std Deviation RDW Coeff of Daniel Plt Count MPV Immature Gran % (Auto) Neut % (Auto) Lymph % (Auto) [place] % (Auto) Eos % (Auto) Baso % (Auto) Absolute Neuts (auto) Absolute Lymphs (auto) Nucleated RBC % Sodium Potassium Chloride Carbon Dioxide Anion Gap BUN Creatinine Estim Creat Clear Calc Est GFR (MDRD) Af Amer Est GFR (MDRD) Non-Af BUN/Creatinine Ratio Glucose Calcium Total Bilirubin Direct Bilirubin AST ALT Alkaline Phosphatase Total Protein Albumin Globulin Lipase Urine Color Yellow Urine Clarity Clear Urine pH 6.0 Ur Specific [place] 1.010 Urine Protein Negative Urine Glucose (UA) Normal Urine Ketones Negative Urine Occult Blood 10 H Urine Nitrite Negative Urine Bilirubin Negative Urine Urobilinogen Normal Ur Leukocyte Esterase 25 H Urine RBC 5-10 SEEN Urine WBC 0-5 SEEN Ur Squamous Epith Cells 0-5 SEEN Urine Bacteria 0 SEEN Urine Mucus 0 SEEN Radiography Diagnostic Testing: Clinical Impression(s) from Imaging Studies Gallbladder Ultrasound 07/10/21 09:14 IMPRESSION: Normal right upper quadrant ultrasound examination. Electronically Signed: Caden Gates MD at 10:49 EDT , Abdomen/Pelvis CT 07/10/21 10:56 IMPRESSION: Normal enhanced CT of the abdomen and pelvis. Electronically Signed: Caden Gates MD at 12:19 EDT , Discharge Plan Triage Chief Complaint: Abd Pain ED Provider: Matti Schultz Dx/Rx/DC Orders Clinical Impression: Abdominal pain, Gastritis Instructions: Abdominal Pain Prescriptions: New sucralfate [Carafate] 1 gram tablet 1 g PO BID Qty: 60 RF: 0 omeprazole 40 mg capsule,delayed release(DR/EC) 40 mg PO DAILY Qty: 30 RF: 0 No Action mirtazapine 15 MG tablet 15 mg PO QHS PRN PRN (Reason: Sleep) RF: 0 clonazepam [Klonopin] 0.5 MG tablet 0.5 mg PO BID RF: 0 sertraline 50 MG tablet 50 mg PO DAILY RF: 0 testosterone 1 % (50 mg/5 gram) gel in packet 1 tube topical DAILY RF: 0 Primary Care Provider: Sharmin Ashton Referrals: Sharmin Ashton MD [Primary Care Provider] - Friend,DO Daniel [STAFF PHYSICIAN] - 1 Week Activity Restrictions/Additional Instructions: Your labs and ultrasound your gallbladder are normal. CT scan notes a liver 1.2 cm cyst right lobe. Follow-up with GI. Your symptoms are occurring after meals. You will possibly need a HIDA scan as an outpatient. Return if any worsening symptoms. Disposition Disposition: Home, Self Care Discharge Date/Time: 07/10/21 15:07
[2021-07-10 10:44] VITALS: BP 130/78; PULSE 61; RESP 16; O2SAT 99
--- NOTE | 2021-07-10 10:56 | CT_ITS ---
STUDY: CT ABDOMEN AND PELVIS WITH CONTRAST REASON FOR EXAM: Female, 50 years old. abdominal pain RADIATION DOSAGE (If Supplied By Facility): CTDIvol = ( 14.44 ) mGy, DLP = ( 981.05 ) mGycm TECHNIQUE: Transaxial images were obtained from the dome of the diaphragm to the symphysis pubis without oral contrast. IV 100mL Isovue-370 was administered. Sagittal and coronal images were reconstructed. Individualized dose optimization techniques were used for this CT. COMPARISON: 05/23/2017 FINDINGS: The visualized lung bases are unremarkable. The visualized portions of the heart are within normal limits. 1.2 cm cyst in the anterior segment the right lobe of the liver. Normal gallbladder and extrahepatic biliary system. Normal spleen. Normal pancreas. Normal bilateral adrenal glands. Normal right kidney. Normal left kidney. Normal visualized stomach. Normal small intestine. Normal colon. There is non-visualization of the appendix. Normal abdominal aorta. Normal inferior vena cava. Normal retroperitoneum. Normal urinary bladder. Normal abdominal wall. Normal osseous structures. CT/Abdomen/Pelvis W IV Cont ONLY IMPRESSION: Normal enhanced CT of the abdomen and pelvis. Electronically Signed: Caden Gates MD at 12:19 EDT ,
[2021-07-10 11:56] LABS: Bacteria 0 SEEN /hpf (None Seen); Color, Urine Yellow (Yellow); Glucose, Dipstick Normal (Normal); Ketone-Dipstick Negative (Negative); Leukocyte Esterase-Dipstick 25 /ul (Negative); Mucous, Urine 0 SEEN /hpf (<or=2+); Nitrite-Dipstick Negative (Negative); Occult Blood-Urine 10 /ul (Negative); Protein-Dipstick Negative (Negative); Urine Bilirubin Dipstick Negative (Negative); Urine Clarity Clear (Clear); Urine Urobilinogen Normal (Normal)
[2021-07-10 12:00] VITALS: BP 120/71; PULSE 67; RESP 18; O2SAT 99
[2021-07-10 12:02] LABS: Red Blood Cells-Urine 5-10 SEEN /hpf (0-5); Squamous Epithelial Cells - UA 0-5 SEEN /hpf (5-10); White Blood Cells 0-5 SEEN /hpf (0-5)
[2021-07-10] MEDS: Famotidine 200 MG/20 ML MDV 20 MG in 0.9% Normal Saline (Pres. free 8 ML 300 MG IV (12:58)
--- NOTE | 2021-07-10 13:08 | ED.RN ---
Per Dr. Schultz, it is ok for patient to take home medications at this time.
[2021-07-10 14:00] VITALS: BP 115/78; PULSE 75; RESP 18; O2SAT 96
[2021-07-10] MEDS: Mag Hydrox/Al Hydrox/Simeth 30 ML UDC PO (14:40)
== END 2021-07-10 15:07 | disposition home or self-care (01) ==
PROVIDERS: Emergency Provider Emergency Medicine; PCP Internal Medicine; Visit Provider Emergency Medicine
DX: K29.70 Gastritis, unspecified, without bleeding (principal); M54.9 Dorsalgia, unspecified; G89.29 Other chronic pain; F17.210 Nicotine dependence, cigarettes, uncomplicated; R10.9 Unspecified abdominal pain
CPT/HCPCS: 74177; 76705; 80048; 80076; 81001; 83690; 85025; 87086; 87088; 96361; 96365; 96375; 96376; 99284; J7030; Q9967; A4216; J2405; J3490

== ENCOUNTER 2021-08-07 08:02 | Emergency (ER) | payer MEDICAID, SELFPAY ==
[2021-08-07 08:03] VITALS: BP 89/76; PULSE 93; RESP 17; TEMP 36.4; O2SAT 96; BMI 28.7
--- NOTE | 2021-08-07 09:24 | EDS_ITS ---
HPI History of Present Illness Chief Complaint: GI Bleed Informant: patient Narrative Narrative: 50-year-old patient presenting to the emergency department with diarrhea of several weeks duration. She notes that today she had bright red blood with the diarrhea. She also notes that she was very bloated this morning. States she has some IBS issues that have progressively gotten worse. She notes alternating diarrhea and constipation. She followed up from her last ED visit with her PCP and was going to be referred to gastroenterology but she states that has not happened yet. She denies any fevers. No history of colitis. No prior colonoscopy. She notes nausea with eating. She denies any rectal pain. [facility] Medical History PTSD (post-traumatic stress disorder) Home Medications mirtazapine 15 mg tablet 15 mg PO QHS PRN PRN Sleep 08/18/16 [History Last Taken 01/03/17] clonazepam 0.5 mg tablet (Klonopin) 0.5 mg PO BID ANXIETY 01/04/17 [History Last Taken 01/03/17] sertraline 50 mg tablet 50 mg PO DAILY MENTAL HEALTH 01/04/17 [History Last Taken 01/03/17] testosterone 1 % (50 mg/5 gram) transdermal gel packet 1 tube topical DAILY 06/13/21 [History Last Taken Unknown] omeprazole 40 mg capsule,delayed release 40 mg PO DAILY #30 caps 07/10/21 [Rx Last Taken Unknown] Allergy/AdvReac Type Severity Reaction Status Date / Time carbamazepine Allergy NEEDS Verified 08/07/21 09:30 [From Carbatrol] FOLLOW-UP cyclobenzaprine HCl Allergy Other Verified 08/07/21 08:02 [From Flexeril] escitalopram oxalate Allergy Other Verified 08/07/21 08:02 [From Lexapro] gabapentin Allergy Other Verified 08/07/21 08:02 hydromorphone HCl Allergy Other Verified 08/07/21 08:02 [From Dilaudid] hydroxyzine HCl Allergy Other Verified 08/07/21 08:02 [From Vistaril] hydroxyzine pamoate Allergy Other Verified 08/07/21 08:02 [From Vistaril] Influenza Virus Vaccines Allergy Hives Verified 08/07/21 08:02 lactose Allergy Other Verified 08/07/21 08:02 meperidine HCl [From Demerol] Allergy Other Verified 08/07/21 08:02 naproxen [From Naprosyn] Allergy Other Verified 08/07/21 08:02 orphenadrine [From Norflex] Allergy NEEDS Verified 08/07/21 09:30 FOLLOW-UP paroxetine mesylate Allergy Other Verified 08/07/21 08:02 [From PEXEVA] quetiapine fumarate Allergy Other Verified 08/07/21 08:02 [From Seroquel] sulfamethoxazole Allergy Other Verified 08/07/21 08:02 [From Bactrim] trimethoprim [From Bactrim] Allergy Other Verified 08/07/21 08:02 venlafaxine HCl Allergy Other Verified 08/07/21 08:02 [From Effexor] venom-honey bee Allergy Other Verified 08/07/21 08:02 [bee venom (honey bee)] Social History household members: significant other Smoking Status: Current every day smoker tobacco type: cigarettes substance use type: does not use ROS ROS ED Constitutional Constitutional ED: Denies chills or weight loss Eyes Eyes: Denies change in vision or diplopia ENT ENT ED: Denies ear pain, rhinorrhea or sore throat Cardiovascular Cardiovascular: Denies chest pain, orthopnea, palpitations or racing heartbeat Respiratory/Chest Respiratory/Chest: Denies cough, dyspnea or orthopnea Gastrointestinal Gastrointestinal: Reports abdominal pain, constipation, diarrhea and other Details: Bright red blood per rectum ; Denies nausea or vomiting Genitourinary Genitourinary ED: Denies dysuria, hematuria or urinary frequency Musculoskeletal Musculoskeletal: Denies arthralgias or myalgias Integumentary Denies abscess or rash Neurologic Neurologic: Denies headache(s) or weakness Psychiatric Psychiatric: Denies anxiety, depression, suicidal ideation or suicidal thoughts Endocrine Endocrinology: Denies polydipsia, polyphagia or polyuria Allergic/Immunologic Allergic/Immunologic ED: Denies mouth swelling, tongue swelling or urticaria EXAM Physical Exam Const Vital Signs: 08/07/21 08:03 08/07/21 10:13 Temperature 97.6 F L Temperature Source Temporal Pulse Rate 93 Respiratory Rate 17 Blood Pressure 89/76 L 114/75 Blood Pressure Mean 80 88 Pulse Ox 96 Oxygen Delivery Method Room Air Positive well nourished and well developed General Appearance ED: well developed HEENT Reports normocephalic, head/scalp atraumatic and moist mucous membranes Eyes PERRL and EOMs intact bilaterally Neck no lymphadenopathy, supple and no JVD Resp normal respiratory effort and clear to auscultation bilaterally Cardio regular rate, regular rhythm and no murmurs GI normal to inspection, nondistended, normoactive bowel sounds and non-tender Palpation: soft Back/Spine no CVA tenderness and normal ROM Extremity normal to inspection General Extremety ED: Negative for edema General Extremity: Negative for edema Neuro oriented x3 and CN's II-XII intact bilaterally Sensorium / Orientation: alert Motor Exam: strength 5/5 throughout Psych mental status grossly normal Mood & Affect: Negative for depressed or tearful Skin no rashes or lesions noted and no wounds MDM MDM MDM Narrative Medical decision making narrative: He said blood work showed a normal hemoglobin of 14.2. BUN is 16. Urinalysis contaminated but no overt infection. CT ab pelvis does not demonstrate any colitis or diverticulosis. Clinically the patient appears very stable. I think what would benefit the patient most given her long history of constipation and diarrhea and other GI complaints would be colonoscopy/endoscopy and following up with gastroenterology. Patient understands this and is comfortable with it. I think that the earlier lower blood pressure reading was an error. Lab Data Attestation: I reviewed the patient's lab results. Labs: Laboratory Results - last 24 hr 08/07/21 08/07/21 08/07/21 09:33 09:35 09:35 WBC 7.9 RBC 5.05 Hgb 14.2 Hct 44.5 MCV 88.1 MCH 28.1 MCHC 31.9 L RDW Std Deviation 44.6 H RDW Coeff of Daniel 13.8 Plt Count 206 MPV 11.7 Immature Gran % (Auto) 0.400 Neut % (Auto) 69.3 Lymph % (Auto) 22.3 Chester % (Auto) 6.3 Eos % (Auto) 1.3 Baso % (Auto) 0.4 Absolute Neuts (auto) 5.5 Absolute Lymphs (auto) 1.77 Nucleated RBC % 0 Sodium 141 Potassium 3.8 Chloride 109 H Carbon Dioxide 25.0 Anion Gap 7 BUN 16 Creatinine 0.96 Estim Creat Clear Calc 64.17 Est GFR (MDRD) Af Amer 78 Est GFR (MDRD) Non-Af 65 BUN/Creatinine Ratio 16.6 Glucose 111 H Calcium 8.8 Total Bilirubin 0.20 AST 16 ALT 21 Alkaline Phosphatase 77 Total Protein 6.9 Albumin 3.9 Globulin 3.0 Albumin/Globulin Ratio 1.3 Lipase 124 Urine Color Yellow Urine Clarity Clear Urine pH 6.0 Ur Specific Point 1.020 Urine Protein 15 H Urine Glucose (UA) Normal Urine Ketones Negative Urine Occult Blood 50 H Urine Nitrite Negative Urine Bilirubin Negative Urine Urobilinogen 1 H Ur Leukocyte Esterase 25 H Urine RBC 0-5 SEEN Urine WBC 5-10 SEEN Ur Squamous Epith Cells 5-10 SEEN Urine Bacteria 1+ Urine Mucus 0 SEEN Radiography Diagnostic Testing: Clinical Impression(s) from Imaging Studies Abdomen/Pelvis CT 08/07/21 10:15 IMPRESSION: Stable examination. No acute abnormalities. Electronically Signed: Dionte Hodgson MD at 10:35 EDT Reading Location ID and State: [address] [place] [address] , Service support , Discharge Plan Triage Chief Complaint: GI Bleed ED Provider: Wagner Porter Dx/Rx/DC Orders Clinical Impression: Acute lower gastrointestinal bleeding, Diarrhea Instructions: ED Lower GI Bleeding (Stable) Prescriptions: No Action mirtazapine 15 MG tablet 15 mg PO QHS PRN PRN (Reason: Sleep) Label Comments: clonazepam [Klonopin] 0.5 MG tablet 0.5 mg PO BID sertraline 50 MG tablet 50 mg PO DAILY testosterone 1 % (50 mg/5 gram) gel in packet 1 tube topical DAILY Label Comments: APPLY THE CONTENTS OF ONE PACKET TO CLEAN, DRY, INTACT SKIN OF THE SHOULDER AND UPPER ARMS ONCE DAILY omeprazole 40 mg capsule,delayed release(DR/EC) 40 mg PO DAILY Qty: 30 0RF Primary Care Provider: Sharmin Ashton Referrals: Sharmin Ashton MD [Primary Care Provider] - FriendDaniel DO [STAFF PHYSICIAN] - As soon as possible (for gastroenterology consult) Disposition Disposition: Home, Self Care
[2021-08-07 09:43] LABS: Mucous, Urine 0 SEEN /hpf (<or=2+)
[2021-08-07 09:45] LABS: Absolute Lymphocyte Count 1.77 X10^3/uL (0.83-4.51); Absolute Neutrophil Count 5.5 X10^3/uL (2.0-7.7); Basophil# 0.03 X10^3/uL; Basophil% 0.4 % (0-1); Eosinophils% 1.3 % (0-5); Hematocrit 44.5 % (37-47); Hemoglobin 14.2 g/dL (12.0-15.0); Lymphocyte # 1.77 X10^3/ul (0.83-4.51); Lymphocyte % 22.3 % (19-41); Mean Corp Hgb Conc 31.9 g/dL (32-36); Mean Corpuscular Hgb 28.1 pg (27.0-32.0); Mean Corpuscular Volume 88.1 fL (81-99); Mean Platelet Vol. 11.7 fl (6.2-12.0); Monocyte% 6.3 % (0-10); NRBC Flagged by Analyzer 0 % (0-5); Neutrophil # 5.51 X10^3/uL (2.7-7.7); Neutrophil % 69.3 % (47-70); Platelet Count 206 K/mm3 (150-450); RBC Distribution Width CV 13.8 % (11.6-14.6); RBC Distribution Width SD 44.6 fl (35.1-43.9); Red Blood Count 5.05 M/mm3 (4.2-5.4); White Blood Count 7.9 K/mm3 (4.4-11.0)
[2021-08-07 09:47] LABS: Color, Urine Yellow (Yellow); Glucose, Dipstick Normal (Normal); Ketone-Dipstick Negative (Negative); Leukocyte Esterase-Dipstick 25 /ul (Negative); Nitrite-Dipstick Negative (Negative); Occult Blood-Urine 50 /ul (Negative); Protein-Dipstick 15 mg/dl (Negative); Urine Bilirubin Dipstick Negative (Negative); Urine Clarity Clear (Clear); Urine Urobilinogen 1 mg/dl (Normal)
[2021-08-07 09:54] LABS: Bacteria 1+ /hpf (None Seen); Red Blood Cells-Urine 0-5 SEEN /hpf (0-5); Squamous Epithelial Cells - UA 5-10 SEEN /hpf (5-10); White Blood Cells 5-10 SEEN /hpf (0-5)
[2021-08-07 10:01] LABS: ALB/GLOB Ratio 1.3 RATIO (0.9-2.4); AST(SGOT) 16 U/L (15-37); Alanine Aminotransfer ALT/SGPT 21 U/L (13-56); Albumin, Serum 3.9 g/dL (3.2-5.0); Alkaline Phosphatase 77 U/L (45-117); Anion Gap 7 (5-15); BUN 16 mg/dL (7-18); BUN/Creat Ratio 16.6 RATIO (10-20); Calcium,Total 8.8 mg/dL (8.5-10.1); Chloride 109 mmol/L (98-107); Creatinine, Serum 0.96 mg/dL (0.55-1.02); EST Glomerular Filtration Rate 65 mL/min (>60); Est Glom Filt Rate - Afr Amer 78 mL/min (>60); Estimated Creatinine Clearance 64.17 ml/min; Glucose 111 mg/dL (74-106); Lipase 124 U/L (73-393); Potassium 3.8 mmol/L (3.5-5.1); Protein, Total 6.9 g/dL (6.4-8.2); Sodium Level 141 mmol/L (136-145)
[2021-08-07 10:13] VITALS: BP 114/75
--- NOTE | 2021-08-07 10:15 | CT_ITS ---
STUDY: CT ABDOMEN AND PELVIS WITH CONTRAST REASON FOR EXAM: Female, 50 years old. Colitis RADIATION DOSAGE (If Supplied By Facility): CTDIvol = ( 15.44 ) mGy, DLP = ( 927.09 ) mGycm TECHNIQUE: Transaxial images were obtained from the dome of the diaphragm to the symphysis pubis without oral contrast. IV 100mL Isovue-300 was administered. Sagittal and coronal images were reconstructed. Individualized dose optimization techniques were used for this CT. COMPARISON: Comparison is made with prior study dated 07/10/2021. FINDINGS: Stable mild degree of increased markings at the lung bases suggestive of either mild scarring and/or atelectasis. The visualized portions of the heart are within normal limits. Stable 1 cm cyst in the superior aspect of the right lobe of the liver. Fatty infiltration of the liver. The gallbladder is contracted. Normal spleen. Normal pancreas. Normal bilateral adrenal glands. Normal right kidney. Normal left kidney. Incidental note is made of a left retroaortic renal vein. Normal visualized stomach. Normal small intestine. Normal colon. Fecal material is seen in the right hemicolon. There is non-visualization of the appendix. Normal abdominal aorta. Normal inferior vena cava. Normal retroperitoneum. Normal urinary bladder. Normal abdominal wall. Normal osseous structures. CT/Abdomen/Pelvis W IV Cont ONLY IMPRESSION: Stable examination. No acute abnormalities. Electronically Signed: Dionte Hodgson MD at 10:35 EDT ,
== END 2021-08-07 11:11 | disposition home or self-care (01) ==
PROVIDERS: Emergency Provider Emergency Medicine; PCP Internal Medicine; Visit Provider Emergency Medicine
DX: K92.2 Gastrointestinal hemorrhage, unspecified (principal); F17.210 Nicotine dependence, cigarettes, uncomplicated; R11.0 Nausea; R19.7 Diarrhea, unspecified; F43.10 Post-traumatic stress disorder, unspecified
CPT/HCPCS: 74177; 80053; 81001; 83690; 85025; 99282; Q9967; A4216

== ENCOUNTER 2021-08-29 08:42 | Emergency (ER) | payer MEDICAID, SELFPAY ==
[2021-08-29 08:43] VITALS: BP 136/83; PULSE 101; RESP 18; TEMP 36.6; O2SAT 96; BMI 29.8
[2021-08-29 08:52] VITALS: BP 118/80; PULSE 82; RESP 17; TEMP 37.3; O2SAT 95
--- NOTE | 2021-08-29 09:05 | EX.ED.VIS.UR ---
HPI HPI - URI History of Present Illness Chief Complaint: Sore Throat Informant: patient Narrative Narrative: Patient is a 50-year-old with history of fibromyalgia, anxiety and scoliosis presenting with sore throat and difficulty speaking. Patient's had symptoms for about 3 days. Notes that her partner recently tested positive for strep throat. Woke up this morning and could not speak. Is painful swallowing. Is not drooling. No other complaints at this time. ROS ROS ED Constitutional Constitutional ED: Denies chills or fever(s) Eyes Eyes: Denies blurry vision ENT ENT ED: Reports sore throat and other Details: hoarse voice ; Denies ear pain or rhinorrhea Cardiovascular Cardiovascular: Denies chest pain Respiratory/Chest Respiratory/Chest: Reports cough; Denies dyspnea Gastrointestinal Gastrointestinal: Denies abdominal pain, nausea or vomiting Musculoskeletal Musculoskeletal: Denies myalgias Integumentary Denies rash Neurologic Neurologic: Denies headache(s) PFSH PFS Medical History PTSD (post-traumatic stress disorder) Home Medications mirtazapine 15 mg tablet 15 mg PO QHS PRN PRN Sleep 08/18/16 [History Last Taken 01/03/17] clonazepam 0.5 mg tablet (Klonopin) 0.5 mg PO BID ANXIETY 01/04/17 [History Last Taken 01/03/17] sertraline 50 mg tablet 50 mg PO DAILY MENTAL HEALTH 01/04/17 [History Last Taken 01/03/17] testosterone 1 % (50 mg/5 gram) transdermal gel packet 1 tube topical DAILY 06/13/21 [History Last Taken Unknown] omeprazole 40 mg capsule,delayed release 40 mg PO DAILY #30 caps 07/10/21 [Rx Last Taken Unknown] penicillin V potassium 500 mg tablet 500 mg PO Q8H 10 days #30 tabs 08/29/21 [Rx Last Taken Unknown] Allergy/AdvReac Type Severity Reaction Status Date / Time carbamazepine Allergy NEEDS Verified 08/29/21 08:45 [From Carbatrol] FOLLOW-UP cyclobenzaprine HCl Allergy Other Verified 08/29/21 08:45 [From Flexeril] escitalopram oxalate Allergy Other Verified 08/29/21 08:45 [From Lexapro] gabapentin Allergy Other Verified 08/29/21 08:45 hydromorphone HCl Allergy Other Verified 08/29/21 08:45 [From Dilaudid] hydroxyzine HCl Allergy Other Verified 08/29/21 08:45 [From Vistaril] hydroxyzine pamoate Allergy Other Verified 08/29/21 08:45 [From Vistaril] Influenza Virus Vaccines Allergy Hives Verified 08/29/21 08:45 lactose Allergy Other Verified 08/29/21 08:45 meperidine HCl [From Demerol] Allergy Other Verified 08/29/21 08:45 naproxen [From Naprosyn] Allergy Other Verified 08/29/21 08:45 orphenadrine [From Norflex] Allergy NEEDS Verified 08/29/21 08:45 FOLLOW-UP paroxetine mesylate Allergy Other Verified 08/29/21 08:45 [From PEXEVA] quetiapine fumarate Allergy Other Verified 08/29/21 08:45 [From Seroquel] sulfamethoxazole Allergy Other Verified 08/29/21 08:45 [From Bactrim] trimethoprim [From Bactrim] Allergy Other Verified 08/29/21 08:45 venlafaxine HCl Allergy Other Verified 08/29/21 08:45 [From Effexor] venom-honey bee Allergy Other Verified 08/29/21 08:45 [bee venom (honey bee)] Social History household members: significant other Smoking Status: Current some day smoker tobacco type: cigarettes substance use type: does not use EXAM Physical Exam Const Vital Signs: 08/29/21 08:43 08/29/21 08:52 08/29/21 09:03 Temperature 98 F 99.2 F H Temperature Source Temporal Oral Pulse Rate 101 H 82 Respiratory Rate 18 17 Respiratory Effort Normal Non-Labored Respiratory Pattern Normal Blood Pressure 136/83 H 118/80 Blood Pressure Mean 100 92 Pulse Ox 96 95 Oxygen Delivery Method Room Air Room Air Positive well nourished and well developed General Appearance ED: well developed and NAD HEENT Reports moist mucous membranes HEENT Narrative: Normal TMs bilaterally. No facial swelling appreciated. Normal dentition. Erythema of the oropharynx present. No tonsillar exudate or significant edema appreciated. Uvula is midline. Handling secretions. Sublingual space is soft. No stridor. Hoarse voice. normocephalic Eyes PERRL and EOMs intact bilaterally Neck no lymphadenopathy, supple and no meningeal signs Resp normal respiratory effort and clear to auscultation bilaterally Auscultation: Negative for wheezes Cardio no murmurs Rate: regular rate Rhythm: regular rhythm GI non-tender and non-distended Back/Spine normal ROM Neuro oriented x3 and CN's II-XII intact bilaterally Motor Exam: Negative for general weakness Psych mental status grossly normal Skin Lesions: no lesions Rashes: no rashes MDM MDM MDM Narrative Medical decision making narrative: Patient is evaluated for worsening sore throat and now hoarse voice. Presentation consistent with laryngitis. Strep swab obtained given recent exposure. Given oral Decadron and Motrin. Patient states that she can tolerate ibuprofen despite having an allergy listed for naproxen. No signs of airway compromise or deep space infection requiring imaging at this time. Strep swab is negative however given the severity of her symptoms, low-grade temp in the ER and known sick contact will treat with penicillin. Patient tolerates medications in the ER. Is given return precautions including drooling, difficulty swallowing or lying back or inability to swallow. She nods understanding of this plan. She is discharged home in stable condition. Discharge Plan Triage Chief Complaint: Sore Throat ED Provider: Amie Finnegan Dx/Rx/DC Orders Clinical Impression: Laryngitis, acute Instructions: ED Laryngitis Prescriptions: New penicillin V potassium 500 mg tablet 500 mg PO Q8H 10 Days Qty: 30 0RF No Action mirtazapine 15 MG tablet 15 mg PO QHS PRN PRN (Reason: Sleep) Label Comments: clonazepam [Klonopin] 0.5 MG tablet 0.5 mg PO BID sertraline 50 MG tablet 50 mg PO DAILY testosterone 1 % (50 mg/5 gram) gel in packet 1 tube topical DAILY Label Comments: APPLY THE CONTENTS OF ONE PACKET TO CLEAN, DRY, INTACT SKIN OF THE SHOULDER AND UPPER ARMS ONCE DAILY omeprazole 40 mg capsule,delayed release(DR/EC) 40 mg PO DAILY Qty: 30 0RF Primary Care Provider: Sharmin Ashton Referrals: Sharmin Ashton MD [Primary Care Provider] - Activity Restrictions/Additional Instructions: Alternate ibuprofen and Tylenol as needed for pain. Drink plenty of fluids. Disposition Disposition: Home, Self Care
[2021-08-29] MEDS: Ibuprofen 600 MG Tablet PO (09:12)
[2021-08-29] MEDS: dexAMETHasone 10 MG/ML Vial PO.IVFORM (09:14)
[2021-08-29] MEDS: Penicillin Vk 250 MG Tablet 500 MG PO (10:07)
== END 2021-08-29 10:14 | disposition home or self-care (01) ==
PROVIDERS: Emergency Provider Emergency Medicine; PCP Internal Medicine; Visit Provider Emergency Medicine
DX: J04.0 Acute laryngitis (principal); F41.9 Anxiety disorder, unspecified; F17.210 Nicotine dependence, cigarettes, uncomplicated; M79.7 Fibromyalgia; F43.10 Post-traumatic stress disorder, unspecified; Z79.899 Other long term (current) drug therapy
CPT/HCPCS: 87880; 99284

== ENCOUNTER 2021-11-05 01:55 | Emergency (ER) | payer MEDICAID, SELFPAY ==
[2021-11-05 01:57] VITALS: BP 121/73; PULSE 95; RESP 16; TEMP 37.1; O2SAT 92; BMI 28.8
[2021-11-05 02:01] VITALS: BP 121/73; PULSE 95; RESP 16; TEMP 37.1; O2SAT 92
--- NOTE | 2021-11-05 02:28 | EDS_ITS ---
HPI HPI - Psych History of Present Illness Chief Complaint: Anxiety Narrative Narrative: 1-year-old female presenting with anxiety. She states she has a history of this and supposed to be prescribed clonazepam as needed but she also states its supposed to be twice daily. The patient states that she tried to call the doctor's office and had her clonazepam called in to [facility] but because she does not drive she had it mailed to her. She states this would be 3 business days. This was on the . The patient states that she is subsequently out of her clonazepam and requests. [facility] Medical History PTSD (post-traumatic stress disorder) Home Medications mirtazapine 15 mg tablet 15 mg PO QHS PRN PRN Sleep 08/18/16 [History Last Taken 01/03/17] clonazepam 0.5 mg tablet (Klonopin) 0.5 mg PO BID ANXIETY 01/04/17 [History Last Taken 01/03/17] sertraline 50 mg tablet 50 mg PO DAILY MENTAL HEALTH 01/04/17 [History Last Taken 01/03/17] testosterone 1 % (50 mg/5 gram) transdermal gel packet 1 tube topical DAILY 06/13/21 [History Last Taken Unknown] omeprazole 40 mg capsule,delayed release 40 mg PO DAILY #30 caps 07/10/21 [Rx Last Taken Unknown] penicillin V potassium 500 mg tablet 500 mg PO Q8H 10 days #30 tabs 08/29/21 [Rx Last Taken Unknown] Allergy/AdvReac Type Severity Reaction Status Date / Time carbamazepine Allergy NEEDS Verified 08/29/21 08:45 [From Carbatrol] FOLLOW-UP cyclobenzaprine HCl Allergy Other Verified 08/29/21 08:45 [From Flexeril] escitalopram oxalate Allergy Other Verified 08/29/21 08:45 [From Lexapro] gabapentin Allergy Other Verified 08/29/21 08:45 hydromorphone HCl Allergy Other Verified 08/29/21 08:45 [From Dilaudid] hydroxyzine HCl Allergy Other Verified 08/29/21 08:45 [From Vistaril] hydroxyzine pamoate Allergy Other Verified 08/29/21 08:45 [From Vistaril] Influenza Virus Vaccines Allergy Hives Verified 08/29/21 08:45 lactose Allergy Other Verified 08/29/21 08:45 meperidine HCl [From Demerol] Allergy Other Verified 08/29/21 08:45 naproxen [From Naprosyn] Allergy Other Verified 08/29/21 08:45 orphenadrine [From Norflex] Allergy NEEDS Verified 08/29/21 08:45 FOLLOW-UP paroxetine mesylate Allergy Other Verified 08/29/21 08:45 [From PEXEVA] quetiapine fumarate Allergy Other Verified 08/29/21 08:45 [From Seroquel] sulfamethoxazole Allergy Other Verified 08/29/21 08:45 [From Bactrim] trimethoprim [From Bactrim] Allergy Other Verified 08/29/21 08:45 venlafaxine HCl Allergy Other Verified 08/29/21 08:45 [From Effexor] venom-honey bee Allergy Other Verified 08/29/21 08:45 [bee venom (honey bee)] Social History household members: significant other Smoking Status: Current some day smoker tobacco type: cigarettes substance use type: does not use ROS ROS ED Constitutional Constitutional ED: Denies chills or fever(s) Eyes Eyes: Denies change in vision or diplopia ENT ENT ED: Denies rhinorrhea or sore throat Cardiovascular Cardiovascular: Denies chest pain or palpitations Respiratory/Chest Respiratory/Chest: Denies cough or dyspnea Gastrointestinal Gastrointestinal: Denies abdominal pain or constipation Genitourinary Genitourinary ED: Denies dysuria or hematuria Musculoskeletal Musculoskeletal: Denies arthralgias or back pain Integumentary Denies abscess or Abrasions Neurologic Neurologic: Denies headache(s) or paresthesias Psychiatric Psychiatric: Reports anxiety; Denies depression, suicidal ideation or suicidal thoughts EXAM Physical Exam Const Vital Signs: 11/05/21 01:57 11/05/21 02:01 Temperature 98.7 F 98.7 F Temperature Source Temporal Oral Pulse Rate 95 95 Respiratory Rate 16 16 Blood Pressure 121/73 H 121/73 H Blood Pressure Mean 89 89 Pulse Ox 92 92 Oxygen Delivery Method Room Air Positive well nourished General Appearance ED: NAD; Negative for pallor HEENT Reports moist mucous membranes normocephalic and atraumatic Eyes PERRL and EOMs intact bilaterally Resp normal respiratory effort Cardio Rate: regular rate Rhythm: regular rhythm GI non-tender Neuro oriented x3 and CN's II-XII intact bilaterally Sensorium / Orientation: alert Motor Exam: strength 5/5 throughout Psych mental status grossly normal and thought process normal Appearance: grossly normal Attitude: calm Activity / Motor Behavior: appropriate eye contact Speech: normal speech Thought Content: normal thought content Attention / Concentration: attention grossly intact Memory / Cognition: memory grossly intact and cognition grossly impaired Insight: insight good Judgement: judgement good Skin General Skin Exam: Negative for jaundice or pallor MDM MDM MDM Narrative Medical decision making narrative: 30-year-old female with a longstanding history of anxiety requesting clonazepam. On [place] reporting system it shows that she last received a 30-day supply on July 28. This is provided in twice daily doses of 0.5 mg. I initially asked her if she ran out of this after 30 days why is she out of this so long and requesting it now. She then stated that she received a bulk dose through the pharmacy for 90 days which bridge her up until recently however while looking at this with nursing staff there is no visible bulk supply for clonazepam except for on the and this says that it is filled. If she had 0.5 mg for 30-day supply she would have been now in August on the . I went back and asked her about this and she states that her sleeping medicine makes her sleep until the midday and so she only typically takes 1 pill a day. I explained to her that that would only to bridge her until September. She then became angry and said I did already told you I had a 90-day supply. I then replied to her that I cannot confirm this based on [place] reporting nor can I confirm this from the pharmacy. I only see a prescription which was filled on the . Its not clear whether or not this was filled and she has this for if it is as she reports in the mail from [facility] and she states that it would be 3 business days which means she would get on Saturday. I explained to her that this is a controlled substance and it looks like she had been out of clonazepam for months. It also looks like she has a filled prescription for 60 days and not a bulk supply for 90 days. Since I cannot confirm this I counseled the patient that I cannot provide her with a prescription. I did give her a 0.5 mg and clonazepam here and I recommend that she follow-up with her provider to get this prescription filled. Based on what I am seeing on the [place] reporting system and on her prescription history she would have been out for months so I do not believe she is good to have any withdrawal. Currently she is not tachycardic, tachypneic, hypertensive. She does not appear to be overly anxious. Impression: 1. Anxiety Lab Data Attestation: I reviewed the patient's lab results. Discharge Plan Triage Chief Complaint: Anxiety ED Provider: Clayton Hein Dx/Rx/DC Orders Clinical Impression: Anxiety Instructions: ED Anxiety Reaction Prescriptions: No Action mirtazapine 15 MG tablet 15 mg PO QHS PRN PRN (Reason: Sleep) Label Comments: clonazepam [Klonopin] 0.5 MG tablet 0.5 mg PO BID sertraline 50 MG tablet 50 mg PO DAILY testosterone 1 % (50 mg/5 gram) gel in packet 1 tube topical DAILY Label Comments: APPLY THE CONTENTS OF ONE PACKET TO CLEAN, DRY, INTACT SKIN OF THE SHOULDER AND UPPER ARMS ONCE DAILY omeprazole 40 mg capsule,delayed release(DR/EC) 40 mg PO DAILY Qty: 30 0RF penicillin V potassium 500 mg tablet 500 mg PO Q8H 10 Days Qty: 30 0RF Primary Care Provider: Sharmin Ashton Referrals: Sharmin Ashton MD [Primary Care Provider] - Disposition Disposition: Home, Self Care
--- NOTE | 2021-11-05 02:30 | NURSING ---
pharmacy called for med.
[2021-11-05] MEDS: clonazePAM 0.5 MG Tablet PO (02:45)
== END 2021-11-05 02:50 | disposition home or self-care (01) ==
PROVIDERS: Emergency Provider Student in an Organized Health Care Education/Training Program; PCP Internal Medicine; Visit Provider Student in an Organized Health Care Education/Training Program
DX: F41.9 Anxiety disorder, unspecified (principal); F17.210 Nicotine dependence, cigarettes, uncomplicated; F43.10 Post-traumatic stress disorder, unspecified
CPT/HCPCS: 99283

== ENCOUNTER 2021-11-22 02:08 | Emergency (ER) | payer MEDICAID, SELFPAY ==
[2021-11-22 02:09] VITALS: BP 104/72; PULSE 100; RESP 18; TEMP 37.1; O2SAT 93; BMI 28.5
[2021-11-22] MEDS: LORazepam 2 MG/ML Syringe 1 MG IV (02:42)
[2021-11-22] MEDS: 0.9% Normal Saline 1,000 ML 999 ML IV (02:42)
[2021-11-22 02:47] LABS: Mucous, Urine 0 SEEN /hpf (<or=2+)
[2021-11-22 02:49] LABS: Color, Urine Yellow (Yellow); Glucose, Dipstick Normal (Normal); Ketone-Dipstick Negative (Negative); Leukocyte Esterase-Dipstick 100 /ul (Negative); Nitrite-Dipstick Negative (Negative); Occult Blood-Urine 25 /ul (Negative); Protein-Dipstick 15 mg/dl (Negative); Specific Gravity, Urine 1.015 (1.002-1.030); Urine Bilirubin Dipstick Negative (Negative); Urine Clarity Clear (Clear); Urine Urobilinogen 1 mg/dl (Normal)
[2021-11-22 02:49] LABS: Absolute Lymphocyte Count 2.06 X10^3/uL (0.83-4.51); Absolute Neutrophil Count 3.9 X10^3/uL (2.0-7.7); Basophil# 0.03 X10^3/uL; Basophil% 0.5 % (0-1); Eosinophils% 1.5 % (0-5); Hematocrit 43.5 % (37-47); Hemoglobin 13.9 g/dL (12.0-15.0); Lymphocyte # 2.06 X10^3/ul (0.83-4.51); Lymphocyte % 31.5 % (19-41); Mean Corpuscular Hgb 27.7 pg (27.0-32.0); Mean Corpuscular Volume 86.7 fL (81-99); Mean Platelet Vol. 10.8 fl (6.2-12.0); Monocyte% 6.1 % (0-10); NRBC Flagged by Analyzer 0 % (0-5); Neutrophil # 3.93 X10^3/uL (2.7-7.7); Neutrophil % 60.1 % (47-70); Platelet Count 195 K/mm3 (150-450); RBC Distribution Width CV 13.8 % (11.6-14.6); RBC Distribution Width SD 43.9 fl (35.1-43.9); Red Blood Count 5.02 M/mm3 (4.2-5.4); White Blood Count 6.5 K/mm3 (4.4-11.0)
[2021-11-22 02:52] LABS: Internal QC Validated? YES +Cl - CLEAR BKGD; Pregnancy, Urine Negative Negative
[2021-11-22 02:58] LABS: Bacteria 2+ /hpf (None Seen); Red Blood Cells-Urine 0-5 SEEN /hpf (0-5); Squamous Epithelial Cells - UA 0-5 SEEN /hpf (5-10); White Blood Cells 0-5 SEEN /hpf (0-5)
[2021-11-22 02:59] LABS: Amorphous Sediment 2+
[2021-11-22 03:03] LABS: Anion Gap 5 (5-15); BUN 14 mg/dL (7-18); BUN/Creat Ratio 15.5 RATIO (10-20); Chloride 111 mmol/L (98-107); EST Glomerular Filtration Rate 69 mL/min (>60); Est Glom Filt Rate - Afr Amer 84 mL/min (>60); Estimated Creatinine Clearance 68.45 ml/min; Glucose 106 mg/dL (74-106); Potassium 4.2 mmol/L (3.5-5.1); Sodium Level 142 mmol/L (136-145)
[2021-11-22] MEDS: Ceftriaxone 1 GM/50 ML BAG IV (03:18)
--- NOTE | 2021-11-22 04:20 | EX.ED.DYSGE1 ---
HPI History of Present Illness Chief Complaint: Complaint Narrative Narrative: Patient is a 50-year-old female with past medical history of anxiety fibromyalgia and urinary reflux. She states because of her reflux she will get repeated urinary tract infections. She states that over the past 2 to 3 days she has noticed increased urinary frequency urgency and dysuria. She states she is concerned for repeat urinary tract infection. She also states that despite taking her anxiety meds her anxiety has been spiking and that this is mainly because she is at ends with the people where she is staying. She states she is talk to crisis center multiple times secondary to this. She denies any homicidal or suicidal ideation however. Reported this evening she contacted crisis center multiple times and they recommended that she come into the ER for further evaluation based on her urinary symptoms and spike in anxiety and secondary to this patient presents for evaluation [facility] Medical History PTSD (post-traumatic stress disorder) Home Medications mirtazapine 15 mg tablet 15 mg PO QHS PRN PRN Sleep 08/18/16 [History Last Taken 01/03/17] clonazepam 0.5 mg tablet (Klonopin) 0.5 mg PO BID ANXIETY 01/04/17 [History Last Taken 01/03/17] sertraline 50 mg tablet 50 mg PO DAILY MENTAL HEALTH 01/04/17 [History Last Taken 01/03/17] testosterone 1 % (50 mg/5 gram) transdermal gel packet 1 tube topical DAILY 06/13/21 [History Last Taken Unknown] omeprazole 40 mg capsule,delayed release 40 mg PO DAILY #30 caps 07/10/21 [Rx Last Taken Unknown] cephalexin 500 mg capsule 500 mg PO TID 7 days #21 caps 11/22/21 [Rx Last Taken Unknown] Allergy/AdvReac Type Severity Reaction Status Date / Time carbamazepine Allergy NEEDS Verified 11/22/21 02:15 [From Carbatrol] FOLLOW-UP cyclobenzaprine HCl Allergy Other Verified 11/22/21 02:15 [From Flexeril] escitalopram oxalate Allergy Other Verified 11/22/21 02:15 [From Lexapro] gabapentin Allergy Other Verified 11/22/21 02:15 hydromorphone HCl Allergy Other Verified 11/22/21 02:15 [From Dilaudid] hydroxyzine HCl Allergy Other Verified 11/22/21 02:15 [From Vistaril] hydroxyzine pamoate Allergy Other Verified 11/22/21 02:15 [From Vistaril] Influenza Virus Vaccines Allergy Hives Verified 11/22/21 02:15 lactose Allergy Other Verified 11/22/21 02:15 meperidine HCl [From Demerol] Allergy Other Verified 11/22/21 02:15 naproxen [From Naprosyn] Allergy Other Verified 11/22/21 02:15 orphenadrine [From Norflex] Allergy NEEDS Verified 11/22/21 02:15 FOLLOW-UP paroxetine mesylate Allergy Other Verified 11/22/21 02:15 [From PEXEVA] quetiapine fumarate Allergy Other Verified 11/22/21 02:15 [From Seroquel] sulfamethoxazole Allergy Other Verified 11/22/21 02:15 [From Bactrim] trimethoprim [From Bactrim] Allergy Other Verified 11/22/21 02:15 venlafaxine HCl Allergy Other Verified 11/22/21 02:15 [From Effexor] venom-honey bee Allergy Other Verified 11/22/21 02:15 [bee venom (honey bee)] Social History household members: significant other Smoking Status: Current some day smoker tobacco type: cigarettes substance use type: does not use ROS ROS ED Constitutional Constitutional ED: Denies chills or fever(s) ENT ENT ED: Denies sore throat Cardiovascular Cardiovascular: Denies chest pain Respiratory/Chest Respiratory/Chest: Denies cough or dyspnea Gastrointestinal Gastrointestinal: Reports abdominal pain; Denies diarrhea, nausea or vomiting Genitourinary Genitourinary ED: Reports dysuria and urinary frequency; Denies hematuria Musculoskeletal Musculoskeletal: Denies myalgias Integumentary Denies rash Neurologic Neurologic: Denies headache(s) Psychiatric Psychiatric: Reports anxiety; Denies suicidal ideation or suicidal thoughts Hematologic/Lymphatic Hematologic/Lymphatic: Denies easy bleeding or easy bruising EXAM Physical Exam Const Vital Signs: 11/22/21 02:09 Temperature 98.7 F Temperature Source Temporal Pulse Rate 100 Respiratory Rate 18 Blood Pressure 104/72 Blood Pressure Mean 82 Pulse Ox 93 Oxygen Delivery Method Room Air Positive well nourished and well developed General Appearance ED: well developed HEENT Reports dry mucous membranes Mouth ED: Yes dry mucous membranes Mouth: dry mucous membranes Eyes PERRL and EOMs intact bilaterally Neck supple Resp normal respiratory effort and clear to auscultation bilaterally Cardio regular rate and regular rhythm GI non-distended and no masses GI Narrative: Mild pain with palpation in the suprapubic region without voluntary guarding or rigidity. No pulsatile mass Auscultation: normoactive bowel sounds Palpation: soft Back/Spine no CVA tenderness Extremity normal to inspection Neuro oriented x3 and CN's II-XII intact bilaterally Sensorium / Orientation: alert Psych Psych Narrative: Patient has a nervous/anxious and tearful affect without homicidal or suicidal ideation Skin no rashes or lesions noted MDM MDM MDM Narrative Medical decision making narrative: Patient presented to the ER with stable vitals and a nonsurgical abdomen. Therefore I felt no need for imaging studies. With her history of reflux and recurrent infections a urine sample and basic blood work were obtained. Labs showed no leukocytosis acute kidney injury or electrolyte derangement. Urine did show changes consistent with infection. Therefore patient was started on Rocephin. She was given Ativan because of the increased anxiety and had improvement of those symptoms as well. At this time she is not manic she is not homicidal or suicidal and therefore she does not require pink slip and I do not feel she would benefit from placement in a psychiatric hospital as the cause of her increased anxiety is situational. She does not require admission for her UTI as there is no signs of urosepsis or acute kidney injury. Therefore patient will be advised to continue her normal anxiety medication and antibiotics for the UTI and is otherwise safe for discharge as she is not homicidal or suicidal or manic because of the increased anxiety Lab Data Attestation: I reviewed the patient's lab results. Labs: Laboratory Results - last 24 hr 11/22/21 11/22/21 11/22/21 02:23 02:23 02:30 WBC 6.5 RBC 5.02 Hgb 13.9 Hct 43.5 MCV 86.7 MCH 27.7 MCHC 32.0 RDW Std Deviation 43.9 RDW Coeff of Daniel 13.8 Plt Count 195 MPV 10.8 Immature Gran % (Auto) 0.300 Neut % (Auto) 60.1 Lymph % (Auto) 31.5 [place] % (Auto) 6.1 Eos % (Auto) 1.5 Baso % (Auto) 0.5 Absolute Neuts (auto) 3.9 Absolute Lymphs (auto) 2.06 Nucleated RBC % 0 Sodium 142 Potassium 4.2 Chloride 111 H Carbon Dioxide 26.0 Anion Gap 5 BUN 14 Creatinine 0.90 Estim Creat Clear Calc 68.45 Est GFR (MDRD) Af Amer 84 Est GFR (MDRD) Non-Af 69 BUN/Creatinine Ratio 15.5 Glucose 106 Calcium 9.0 Urine Color Yellow Urine Clarity Clear Urine pH 6.[address] [place] 1.015 Urine Protein 15 H Urine Glucose (UA) Normal Urine Ketones Negative Urine Occult Blood 25 H Urine Nitrite Negative Urine Bilirubin Negative Urine Urobilinogen 1 H Ur Leukocyte Esterase 100 H Urine RBC 0-5 SEEN Urine WBC 0-5 SEEN Ur Squamous Epith Cells 0-5 SEEN Amorphous Sediment 2+ Urine Bacteria 2+ Urine Mucus 0 SEEN Urine Test Negative Discharge Plan Triage Chief Complaint: Complaint ED Provider: Nain Price Dx/Rx/DC Orders Clinical Impression: Urinary tract infection, Anxiety Instructions: Urinary Tract Infections in Women, ED Anxiety Reaction Prescriptions: New cephalexin 500 mg capsule 500 mg PO TID 7 Days Qty: 21 0RF No Action mirtazapine 15 MG tablet 15 mg PO QHS PRN PRN (Reason: Sleep) Label Comments: clonazepam [Klonopin] 0.5 MG tablet 0.5 mg PO BID sertraline 50 MG tablet 50 mg PO DAILY testosterone 1 % (50 mg/5 gram) gel in packet 1 tube topical DAILY Label Comments: APPLY THE CONTENTS OF ONE PACKET TO CLEAN, DRY, INTACT SKIN OF THE SHOULDER AND UPPER ARMS ONCE DAILY omeprazole 40 mg capsule,delayed release(DR/EC) 40 mg PO DAILY Qty: 30 0RF Primary Care Provider: Sharmin Ashton Referrals: Sharmin Ashton MD [Primary Care Provider] - Disposition Disposition: Home, Self Care
[2021-11-22 05:29] VITALS: BP 114/76; PULSE 78; RESP 15; O2SAT 95
== END 2021-11-22 06:03 | disposition home or self-care (01) ==
PROVIDERS: Emergency Provider Emergency Medicine; PCP Internal Medicine; Visit Provider Emergency Medicine
DX: N39.0 Urinary tract infection, site not specified (principal); F17.210 Nicotine dependence, cigarettes, uncomplicated; F41.9 Anxiety disorder, unspecified; N13.9 Obstructive and reflux uropathy, unspecified
CPT/HCPCS: 80048; 81001; 81025; 85025; 87086; 87088; 96361; 96365; 96375; 99283; J7030; A4216

== ENCOUNTER 2021-11-23 17:34 | Emergency (ER) | payer MEDICAID, SELFPAY ==
[2021-11-23 17:35] VITALS: BP 137/87; PULSE 85; RESP 14; TEMP 35.7; O2SAT 95; BMI 28.0
[2021-11-23 19:54] LABS: Absolute Lymphocyte Count 1.72 X10^3/uL (0.83-4.51); Absolute Neutrophil Count 3.6 X10^3/uL (2.0-7.7); Basophil# 0.03 X10^3/uL; Basophil% 0.5 % (0-1); Eosinophil# 0.06 X10^3/uL; Hematocrit 42.6 % (37-47); Hemoglobin 14.1 g/dL (12.0-15.0); Lymphocyte # 1.72 X10^3/ul (0.83-4.51); Lymphocyte % 29.7 % (19-41); Mean Corp Hgb Conc 33.1 g/dL (32-36); Mean Corpuscular Hgb 28.3 pg (27.0-32.0); Mean Corpuscular Volume 85.4 fL (81-99); Mean Platelet Vol. 11.2 fl (6.2-12.0); Monocyte# 0.35 X10^3/uL; NRBC Flagged by Analyzer 0 % (0-5); Neutrophil # 3.63 X10^3/uL (2.7-7.7); Neutrophil % 62.6 % (47-70); Platelet Count 188 K/mm3 (150-450); RBC Distribution Width CV 13.6 % (11.6-14.6); RBC Distribution Width SD 42.3 fl (35.1-43.9); Red Blood Count 4.99 M/mm3 (4.2-5.4); White Blood Count 5.8 K/mm3 (4.4-11.0)
[2021-11-23 19:56] LABS: Amphetamine Urine VISTA NEGATIVE (<1000 ng/mL); Barbiturate Urine VISTA NEGATIVE (< 200 ng/mL); Benzodiazepine Urine VISTA NEGATIVE (< 200 ng/mL); Cocaine Urine VISTA NEGATIVE (< 300 ng/mL); Ecstacy Urine VISTA NEGATIVE (< 500 ng/mL); Methadone Urine VISTA NEGATIVE (< 300 ng/mL); PCP Urine VISTA NEGATIVE (< 25 ng/mL); THC Urine VISTA NEGATIVE (< 50 ng/mL); Vista UDS pH Range 8
[2021-11-23 20:07] LABS: Internal QC Validated? YES +Cl - CLEAR BKGD; Pregnancy, Serum, hCG Quali. NEGATIVE Negative
[2021-11-23 20:09] LABS: Anion Gap 3 (5-15); BUN 10 mg/dL (7-18); BUN/Creat Ratio 10.5 RATIO (10-20); Calcium,Total 9.4 mg/dL (8.5-10.1); Chloride 111 mmol/L (98-107); Creatinine, Serum 0.95 mg/dL (0.55-1.02); EST Glomerular Filtration Rate 65 mL/min (>60); Est Glom Filt Rate - Afr Amer 79 mL/min (>60); Estimated Creatinine Clearance 64.85 ml/min; Glucose 85 mg/dL (74-106); Potassium 4.2 mmol/L (3.5-5.1); Sodium Level 141 mmol/L (136-145)
[2021-11-23 20:21] LABS: Alcohol, Blood (Medical)-Serum < 3.0 mg/dL
--- NOTE | 2021-11-24 00:29 | EX.ED.VIS.PS ---
HPI HPI - Psych History of Present Illness Chief Complaint: Suicidal Informant: patient Onset/Context/Timing Onset: Days Narrative Narrative: Patient presents secondary to anxiety with some suicidal ideation. She is undergoing treatment for transition from female to male. She states that one of her transition counselors had agreed to write letters for her so she could have her gender reassignment surgery, then sent her letter stating that she would not write these letters. Patient states that sent her into a tailspin. She then broke up with her partner but is still living in the same house with him and this is causing increased stress. Patient states she is had thoughts of suicide in the past. She has attempted in the distant past. She states today she had a vivid dream where she was hurting herself and woke up in a panic. She states she is never had a dream like this before and it was very realistic. Patient is currently on clonazepam for anxiety but feels it is no longer working. She was in the emergency room last night for similar complaints. [facility] Medical History Anxiety Asthma Disassociation disorder Fibromyalgia PTSD (post-traumatic stress disorder) Rheumatoid arthritis Scoliosis Home Medications mirtazapine 15 mg tablet 15 mg PO QHS PRN PRN Sleep 08/18/16 [History Last Taken 01/03/17] clonazepam 0.5 mg tablet (Klonopin) 0.5 mg PO BID ANXIETY 01/04/17 [History Last Taken 01/03/17] sertraline 50 mg tablet 50 mg PO DAILY MENTAL HEALTH 01/04/17 [History Last Taken 01/03/17] testosterone 1 % (50 mg/5 gram) transdermal gel packet 1 tube topical DAILY 06/13/21 [History Last Taken Unknown] cephalexin 500 mg capsule 500 mg PO TID 7 days #21 caps 11/22/21 [Rx Last Taken Unknown] Allergy/AdvReac Type Severity Reaction Status Date / Time carbamazepine Allergy NEEDS Verified 11/23/21 17:35 [From Carbatrol] FOLLOW-UP cyclobenzaprine HCl Allergy Other Verified 11/23/21 17:35 [From Flexeril] escitalopram oxalate Allergy Other Verified 11/23/21 17:35 [From Lexapro] gabapentin Allergy Other Verified 11/23/21 17:35 hydromorphone HCl Allergy Other Verified 11/23/21 17:35 [From Dilaudid] hydroxyzine HCl Allergy Other Verified 11/23/21 17:35 [From Vistaril] hydroxyzine pamoate Allergy Other Verified 11/23/21 17:35 [From Vistaril] Influenza Virus Vaccines Allergy Hives Verified 11/23/21 17:35 lactose Allergy Other Verified 11/23/21 17:35 meperidine HCl [From Demerol] Allergy Other Verified 11/23/21 17:35 naproxen [From Naprosyn] Allergy Other Verified 11/23/21 17:35 orphenadrine [From Norflex] Allergy NEEDS Verified 11/23/21 17:35 FOLLOW-UP paroxetine mesylate Allergy Other Verified 11/23/21 17:35 [From PEXEVA] quetiapine fumarate Allergy Other Verified 11/23/21 17:35 [From Seroquel] sulfamethoxazole Allergy Other Verified 11/23/21 17:35 [From Bactrim] trimethoprim [From Bactrim] Allergy Other Verified 11/23/21 17:35 venlafaxine HCl Allergy Other Verified 11/23/21 17:35 [From Effexor] venom-honey bee Allergy Other Verified 11/23/21 17:35 [bee venom (honey bee)] Social History household members: significant other Smoking Status: Current some day smoker tobacco type: cigarettes substance use type: does not use ROS ROS ED Constitutional Constitutional ED: Denies chills or fever(s) Eyes Eyes: Denies change in vision or discharge from eye(s) ENT ENT ED: Denies discharge from eye(s), rhinorrhea or sore throat Cardiovascular Cardiovascular: Denies chest pain or palpitations Respiratory/Chest Respiratory/Chest: Denies cough or dyspnea Gastrointestinal Gastrointestinal: Denies abdominal pain, diarrhea, nausea or vomiting Genitourinary Genitourinary ED: Denies dysuria Musculoskeletal Musculoskeletal: Denies back pain or extremity pain Integumentary Denies Abrasions or rash Neurologic Neurologic: Denies headache(s) or weakness Psychiatric Psychiatric: Reports anxiety and suicidal ideation; Denies depression Endocrine Endocrinology: Denies polydipsia or polyuria Allergic/Immunologic Allergic/Immunologic ED: Denies lip swelling or urticaria EXAM Physical Exam Const Vital Signs: 11/23/21 17:35 11/24/21 00:32 Temperature 96.2 F L Temperature Source Temporal Pulse Rate 85 64 Respiratory Rate 14 16 Blood Pressure 137/87 H 110/69 Blood Pressure Mean 103 82 Pulse Ox 95 98 Oxygen Delivery Method Room Air Room Air Positive well nourished and well developed General Appearance ED: well developed HEENT Reports normocephalic and head/scalp atraumatic Eyes PERRL and EOMs intact bilaterally Neck supple Chest Wall inspection of chest normal and palpation of chest normal Resp normal respiratory effort and clear to auscultation bilaterally Cardio regular rate and regular rhythm GI normal to inspection, nondistended, normoactive bowel sounds Palpation: soft Extremity normal to inspection Neuro oriented x3 and no sensory deficits noted Sensorium / Orientation: alert Motor Exam: strength 5/5 throughout Psych mental status grossly normal and cooperative Appearance: grossly normal Attitude: agitated Skin no rashes or lesions noted MDM MDM MDM Narrative Medical decision making narrative: Lab work obtained for medical clearance. Patient was ordered Ativan but states that she is feeling better at this time does not want to take it if she does not have to. Lab Data Attestation: I reviewed the patient's lab results. Labs: Laboratory Results - last 24 hr 11/23/21 11/23/21 11/23/21 19:20 19:40 19:40 WBC 5.8 RBC 4.99 Hgb 14.1 Hct 42.6 MCV 85.4 MCH 28.3 MCHC 33.1 RDW Std Deviation 42.3 RDW Coeff of Daniel 13.6 Plt Count 188 MPV 11.2 Immature Gran % (Auto) 0.200 Neut % (Auto) 62.6 Lymph % (Auto) 29.7 [place] % (Auto) 6.0 Eos % (Auto) 1.0 Baso % (Auto) 0.5 Absolute Neuts (auto) 3.6 Absolute Lymphs (auto) 1.72 Nucleated RBC % 0 Sodium 141 Potassium 4.2 Chloride 111 H Carbon Dioxide 27.0 Anion Gap 3 L BUN 10 Creatinine 0.95 Estim Creat Clear Calc 64.85 Est GFR (MDRD) Af Amer 79 Est GFR (MDRD) Non-Af 65 BUN/Creatinine Ratio 10.5 Glucose 85 Calcium 9.4 Serum , Qual Urine Opiates Screen NEGATIVE Urine Methadone Screen NEGATIVE Ur Barbiturates Screen NEGATIVE Ur Phencyclidine Scrn NEGATIVE Ur Amphetamines Screen NEGATIVE MDMA (Ecstasy) Screen NEGATIVE U Benzodiazepines Scrn NEGATIVE Urine Cocaine Screen NEGATIVE U Cannabinoids Screen NEGATIVE Ur Drug Screen Comment Ethyl Alcohol 11/23/21 11/23/21 19:40 19:40 WBC RBC Hgb Hct MCV MCH MCHC RDW Std Deviation RDW Coeff of Daniel Plt Count MPV Immature Gran % (Auto) Neut % (Auto) Lymph % (Auto) [place] % (Auto) Eos % (Auto) Baso % (Auto) Absolute Neuts (auto) Absolute Lymphs (auto) Nucleated RBC % Sodium Potassium Chloride Carbon Dioxide Anion Gap BUN Creatinine Estim Creat Clear Calc Est GFR (MDRD) Af Amer Est GFR (MDRD) Non-Af BUN/Creatinine Ratio Glucose Calcium Serum , Qual NEGATIVE Urine Opiates Screen Urine Methadone Screen Ur Barbiturates Screen Ur Phencyclidine Scrn Ur Amphetamines Screen MDMA (Ecstasy) Screen U Benzodiazepines Scrn Urine Cocaine Screen U Cannabinoids Screen Ur Drug Screen Comment Ethyl Alcohol < 3.0 Treatment and Re-Evaluation Narrative: Lab work is unremarkable. Patient is cleared for psychiatric evaluation. Yoselin from the counseling center spoke with the patient. She does not feel the patient needs requirements for inpatient treatment. I agree and that a lot of her stress is caused by her living situation. Even if she goes with psychiatric facility for some medication adjustments she will be discharged right back into the same social situation that is causing her grief at this time. Yoselin will send over a safety plan as well as further information for help with housing to see if we can get her out of her current living situation and help her. They will also do a phone follow-up call later today to ensure patient is doing okay. Return instructions are provided. Patient is comfortable with this plan. Discharge Plan Triage Chief Complaint: Suicidal ED Provider: Ely Moreno Dx/Rx/DC Orders Clinical Impression: Anxiety Instructions: ED Anxiety Reaction Prescriptions: No Action mirtazapine 15 MG tablet 15 mg PO QHS PRN PRN (Reason: Sleep) Label Comments: clonazepam [Klonopin] 0.5 MG tablet 0.5 mg PO BID sertraline 50 MG tablet 50 mg PO DAILY testosterone 1 % (50 mg/5 gram) gel in packet 1 tube topical DAILY Label Comments: APPLY THE CONTENTS OF ONE PACKET TO CLEAN, DRY, INTACT SKIN OF THE SHOULDER AND UPPER ARMS ONCE DAILY cephalexin 500 mg capsule 500 mg PO TID 7 Days Qty: 21 0RF Primary Care Provider: Sharmin Ashton Referrals: Counseling,Center [Group of Physicians] - As soon as possible Sharmin Ashton MD [Primary Care Provider] - Disposition Disposition: Home, Self Care
[2021-11-24 00:32] VITALS: BP 110/69; PULSE 64; RESP 16; O2SAT 98
--- NOTE | 2021-11-24 01:32 | ED.RN ---
patient on the phone with crisis at this time
[2021-11-24] MEDS: LORazepam 1 MG Tablet PO (02:29)
[2021-11-24 02:31] VITALS: PULSE 88; RESP 15; O2SAT 99
== END 2021-11-24 02:31 | disposition home or self-care (01) ==
PROVIDERS: Emergency Provider Emergency Medicine; PCP Internal Medicine; Visit Provider Emergency Medicine
DX: F41.9 Anxiety disorder, unspecified (principal); M06.9 Rheumatoid arthritis, unspecified; F17.210 Nicotine dependence, cigarettes, uncomplicated; M79.7 Fibromyalgia; R45.851 Suicidal ideations; Z60.9 Problem related to social environment, unspecified
CPT/HCPCS: 80048; 80307; 82077; 84703; 85025; 99284

== ENCOUNTER 2022-03-05 09:38 | Emergency (ER) | payer MEDICAID, SELFPAY ==
[2022-03-05] VITALS (7 sets, daily range): BP systolic 99–116; BP diastolic 63–75; PULSE 81–96; RESP 14–20; TEMP 36.3–36.6; O2SAT 93–97; BMI 28.4
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
[2022-03-05] MEDS: Albuterol 2.5 MG/3 ML VIAL.NEB. INHALATION ×3 (10:26)
[2022-03-05] MEDS: Ipratropium/Albuterol Sulfate 3 ML AMPUL.NEB INHALATION (10:26)
[2022-03-05] MEDS: Terbutaline 1 MG/ML Vial 0.25 MG SC (10:28)
--- NOTE | 2022-03-05 11:10 | RAD_ITS ---
STUDY: X-RAY CHEST REASON FOR EXAM: Female, 51 years old. Cough, sob, asthma TECHNIQUE: PA and lateral views of the chest. COMPARISON: Comparison is made with prior examination dated 09/21/2019. FINDINGS: Hyperinflation. The lungs are clear. Scattered calcified granulomas. There is no demonstrated pleural abnormality. Normal size heart. Normal mediastinum and lissette. Normal visualized pulmonary arteries. Normal visualized aortic arch and descending thoracic aorta. Normal visualized thoracic spine. Normal visualized ribs, clavicles, and shoulders. There is no demonstrated abnormality of the visualized soft tissue structures of the upper abdomen. RAD/Chest PA and Lateral IMPRESSION: Hyperinflation. The lungs are clear. Scattered calcified granulomas. Electronically Signed: Dionte Hodgson MD at 11:29 EST ,
== END 2022-03-05 13:31 | disposition home or self-care (01) ==
PROVIDERS: Emergency Provider Emergency Medicine; Visit Provider Emergency Medicine
DX: J20.9 Acute bronchitis, unspecified (principal); J01.20 Acute ethmoidal sinusitis, unspecified; J45.909 Unspecified asthma, uncomplicated; F17.210 Nicotine dependence, cigarettes, uncomplicated; M79.7 Fibromyalgia
CPT/HCPCS: 71046; 94640; 96372; 99282

== ENCOUNTER 2022-04-13 13:30 | Emergency (ER) | payer MEDICAID, SELFPAY ==
[2022-04-13 13:31] VITALS: BP 128/89; PULSE 98; RESP 18; TEMP 35.9; O2SAT 95; BMI 29.8
--- NOTE | 2022-04-13 14:51 | ED.VIS.BACK ---
HPI History of Present Illness Chief Complaint: Back Informant: patient Onset/Context/Timing Onset: Month(s) Context: Gradual Onset Chronic pain exacerbated by: Standing in the cold weather Timing: Continuous Quality: Sharp, Burning and - (Stabbing) Location: Lumbar and Buttock Worsened by: improves with - (Prolonged standing, prolonged sitting, and cold weather) Relieved by: Nothing Associated Symptoms Associated Symptoms: Negative for Numbness, Tingling, Radiation to Right Leg, Radiation to Left Leg, Fever, Abdominal Pain, Dysuria, Unable to Ambulate, Unable to Transfer, Urinary Retention, Urinary Incontinence, Constipation or Fecal Incontinence Narrative Narrative: Patient presents with back pain that became worse today. Patient has a history of chronic back pain, fibromyalgia, and rheumatoid arthritis. Patient states her pain was worse today when she had to stand outside in the cold weather. Patient states her pain is stabbing, burning, and sharp at times. Patient states the pain is over the lower lumbar area, cervical spine, and bilateral hips. Patient states nothing seems to help with it. Patient states she has been taking ibuprofen with no improvement. Patient denies any recent traumas or falls. [facility] Medical History Anxiety Asthma Disassociation disorder Fibromyalgia PTSD (post-traumatic stress disorder) Rheumatoid arthritis Scoliosis Home Medications mirtazapine 15 mg tablet 15 mg PO QHS PRN PRN Sleep 08/18/16 [History Last Taken 01/03/17] clonazepam 0.5 mg tablet (Klonopin) 0.5 mg PO BID ANXIETY 01/04/17 [History Last Taken 01/03/17] sertraline 50 mg tablet 50 mg PO DAILY MENTAL HEALTH 01/04/17 [History Last Taken 01/03/17] azithromycin 250 mg tablet 250 mg PO DAILY #6 TABLETS 03/05/22 [Rx Last Taken Unknown] benzonatate 200 mg capsule 200 mg PO BID PRN Cough 03/05/22 [History Last Taken Unknown] ibuprofen 600 mg tablet 600 mg PO PRN PRN Pain 03/05/22 [History Last Taken Unknown] prednisone 10 mg tablet See Taper PO DAILY 03/05/22 [History Last Taken Unknown] meloxicam 15 mg tablet 15 mg PO DAILY #10 tabs 04/13/22 [Rx Last Taken Unknown] Allergy/AdvReac Type Severity Reaction Status Date / Time carbamazepine Allergy NEEDS Verified 04/13/22 13:40 [From Carbatrol] FOLLOW-UP cyclobenzaprine HCl Allergy Other Verified 04/13/22 13:40 [From Flexeril] escitalopram oxalate Allergy Other Verified 04/13/22 13:40 [From Lexapro] gabapentin Allergy Other Verified 04/13/22 13:40 hydromorphone HCl Allergy Other Verified 04/13/22 13:40 [From Dilaudid] hydroxyzine HCl Allergy Other Verified 04/13/22 13:40 [From Vistaril] hydroxyzine pamoate Allergy Other Verified 04/13/22 13:40 [From Vistaril] Influenza Virus Vaccines Allergy Hives Verified 04/13/22 13:40 lactose Allergy Other Verified 04/13/22 13:40 meperidine HCl [From Demerol] Allergy Other Verified 04/13/22 13:40 naproxen [From Naprosyn] Allergy Other Verified 04/13/22 13:40 orphenadrine [From Norflex] Allergy NEEDS Verified 04/13/22 13:40 FOLLOW-UP paroxetine mesylate Allergy Other Verified 04/13/22 13:40 [From PEXEVA] quetiapine fumarate Allergy Other Verified 04/13/22 13:40 [From Seroquel] sulfamethoxazole Allergy Other Verified 04/13/22 13:40 [From Bactrim] trimethoprim [From Bactrim] Allergy Other Verified 04/13/22 13:40 venlafaxine HCl Allergy Other Verified 04/13/22 13:40 [From Effexor] venom-honey bee Allergy Other Verified 04/13/22 13:40 [bee venom (honey bee)] Social History household members: significant other Smoking Status: Current some day smoker tobacco type: cigarettes substance use type: does not use ROS ROS ED Constitutional Constitutional ED: Denies chills or fever(s) Eyes Eyes: Denies blurry vision or change in vision ENT ENT ED: Denies rhinorrhea or sore throat Cardiovascular Cardiovascular: Denies chest pain or palpitations Respiratory/Chest Respiratory/Chest: Denies cough or dyspnea Gastrointestinal Gastrointestinal: Denies nausea or vomiting Genitourinary Genitourinary ED: Denies dysuria or hematuria Musculoskeletal Musculoskeletal: Reports back pain; Denies neck pain Integumentary Denies abscess or rash Neurologic Neurologic: Reports headache(s); Denies weakness Allergic/Immunologic Allergic/Immunologic ED: Denies mouth swelling or urticaria EXAM Physical Exam Const Vital Signs: 04/13/22 13:31 Temperature 96.6 F L Temperature Source Temporal Pulse Rate 98 Respiratory Rate 18 Blood Pressure 128/89 H Blood Pressure Mean 102 Pulse Ox 95 Oxygen Delivery Method Room Air Positive well nourished, well developed and unkempt General Appearance ED: unkempt, well developed and NAD HEENT Reports moist mucous membranes Neck supple and no JVD Back/Spine Back/Spine Narrative: There is tenderness and mild spasm of the lumbar paraspinal muscles. There is no bony crepitance or step-off. There is no edema or ecchymosis. Range of motion was limited in all motions of the lumbar spine secondary to pain and patient effort. Strength is 5/5 bilaterally in the lower extremities. There are no sensory deficits noted. Lumbar Spine / Lower Back: ROM limited Neuro oriented x3 and no sensory deficits noted Sensorium / Orientation: alert Motor Exam: strength 5/5 throughout Psych Appearance: unkempt MDM MDM MDM Narrative Medical decision making narrative: Patient was advised that this is likely either muscular strain or a flareup of her fibromyalgia. I do not feel any imaging is necessary at this time since there was no direct trauma to her back. Patient is agreeable with this. Patient was given a prescription for meloxicam. Patient was instructed to follow-up with her primary care physician in 5 to 7 days for reevaluation. Patient understood and was agreeable with plan. All questions were answered. Discharge Plan Triage Chief Complaint: Back Other Complaint: Lower Extremity Injury Upper Extremity Injury ED Provider: Michael Sweeney Dx/Rx/DC Orders Clinical Impression: Lumbar strain, Fibromyalgia Instructions: ED Back Pain (Acute or Chronic), ED Chronic Pain Prescriptions: New meloxicam 15 mg tablet 15 mg PO DAILY Qty: 10 0RF No Action mirtazapine 15 MG tablet 15 mg PO QHS PRN PRN (Reason: Sleep) Label Comments: clonazepam [Klonopin] 0.5 MG tablet 0.5 mg PO BID sertraline 50 MG tablet 50 mg PO DAILY prednisone 10 mg tablet See Taper PO DAILY Taper: Prednisone Taper 60 mg WITH BREAKFAST for 3 Days and 0 Hour 50 mg WITH BREAKFAST for 3 Days and 0 Hour 40 mg WITH BREAKFAST for 3 Days and 0 Hour 30 mg WITH BREAKFAST for 3 Days and 0 Hour 20 mg WITH BREAKFAST for 3 Days and 0 Hour 10 mg WITH BREAKFAST for 3 Days and 0 Hour Label Comments: Take 4 tabs(40 mg) for 3 days, then 3 tabs (30 mg) for 3 days, 2 tabs (20 mg) for 3 days then 1 tab (10 mg) daily for 3 days benzonatate 200 mg capsule 200 mg PO BID PRN (Reason: Cough) Label Comments: take one capsule twice daily as needed for cough ibuprofen 600 mg tablet 600 mg PO PRN PRN (Reason: Pain) Label Comments: Take one tab every 6-8 hours as needed for pain azithromycin [azithromycin] 250 mg tablet 250 mg PO DAILY Qty: 6 0RF Rx Instructions: double dose (2 tabs) on first dose/day Primary Care Provider: Sally Gandara Referrals: Sally Gandara [Primary Care Provider] - 3-5 Days Disposition Disposition: Home, Self Care
--- NOTE | 2022-04-13 15:06 | ED.RN ---
THIS RN CAME TO GIVE PT PAIN MEDICINE. PT STATES I DON'T WANT THAT IT WON'T DO ME ANY GOOD IN THE LONG RUN I AM JUST GOING TO BE OUT IN THE COLD ANYWAY. PT CRYING. THIS RN EDUCATED PT ON WHY MEDICATION WAS ORDERED IN ORDER TO HELP RELIEVE PAIN. PT REFUSED. PT EDUCATED THAT ISIDRO, SOCIAL WORK TO COME TALK TO PT PRIOR TO DC ABOUT RESOURCES. PT VERBALIZED UNDERSTANDING.
[2022-04-13 15:32] VITALS: RESP 16
--- NOTE | 2022-04-13 15:36 | ED.RN ---
PT REQUESTS NOTE FROM ER DOCTOR THAT STATES SHE CANNOT BE IN THE COLD FOR [address] MENDOZA DECLINED WRITING NOTE FOR THE PT. THIS RN ENTERED PT ROOM WITH SOCIAL TREY FELIX TO PROVIDE PT WITH RESOURCES FOR PRIMARY CARE DOCTOR AN ALTERNATIVE WAY TO OBTAIN NOTE. PT WALKED OUT OF ROOM WITHOUT ACCEPTING RESOURCES. SOCIAL TREY FELIX ATTEMPTED TO EXPLAIN WHY NOTE COULD NOT BE WRITTEN DUE TO IT NEEDING TO COME FROM PRIMARY CARE DOCTOR. SOCIAL TREY FELIX ASKED PT IF SHE WANTED HER DISCHARGE PAPERWORK PRIOR TO LEAVING PT WAS WALKING OUT. PT STATES WHY? YOU ALL DIDN'T DO ANYTHING FOR ME. THIS RN HANDED PT DISCHARGE PAPERWORK, PT TOOK PAPERWORK, AND PT WALKED OUT OF ER WITH WALKER PRIOR TO VERBAL DISCHARGE INSTRUCTION.
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
== END 2022-04-13 15:43 | disposition home or self-care (01) ==
PROVIDERS: Emergency Provider Emergency Medicine; Visit Provider Emergency Medicine
DX: S39.012A Strain of muscle, fascia and tendon of lower back, initial encounter (principal); M06.9 Rheumatoid arthritis, unspecified; M79.7 Fibromyalgia; F17.210 Nicotine dependence, cigarettes, uncomplicated; M54.9 Dorsalgia, unspecified; G89.29 Other chronic pain
CPT/HCPCS: 96372; 99285

== ENCOUNTER 2022-04-20 09:52 | Emergency (ER) | payer MEDICAID, SELFPAY ==
[2022-04-20 09:54] VITALS: BP 123/71; PULSE 74; RESP 14; TEMP 37; O2SAT 98; BMI 31.8
[2022-04-20] MEDS: Ondansetron 4 MG/2 ML Vial IV (10:59)
[2022-04-20] MEDS: 0.9% Normal Saline 1,000 ML 1000 ML IV (10:59)
[2022-04-20 11:03] LABS: Anion Gap 5 (5-15); BUN 15 mg/dL (7-18); BUN/Creat Ratio 16.7 RATIO (10-20); Chloride 109 mmol/L (98-107); EST Glomerular Filtration Rate 70 mL/min (>60); Est Glom Filt Rate - Afr Amer 85 mL/min (>60); Estimated Creatinine Clearance 67.67 ml/min; Glucose 108 mg/dL (74-106); Potassium 4.5 mmol/L (3.5-5.1); Sodium Level 143 mmol/L (136-145)
--- NOTE | 2022-04-20 11:42 | EDS_ITS ---
HPI History of Present Illness Chief Complaint: Nausea/Vomiting Detail of Chief Complaint: Nausea and dry heaves Informant: patient Onset/Context/Timing Onset: Today (Started this morning upon arising from sleep) Context: Sudden Onset Timing: Continuous (Nausea is continuous) Quality: Nausea and dry heaves Location: GI Current Severity: Mild Maximum Severity: Moderate Worsened by: Patient is concerned she is having an allergic reaction to meloxicam Relieved by: Nothing Associated Symptoms Associated Symptoms: Queasiness and epigastric discomfort Narrative Narrative: Patient is a 51-year-old woman who lists numerous allergies to medications. Her reactions are not allergic i.e. not IgE mediated. Most of them are side effects at best. Patient took meloxicam for the first time yesterday. She is concerned she is experiencing allergic reaction. She reports nausea since arising and dry heaves. She thought if she had cereal this would make her stomach feel better. She states it did not. She denies fever, chills night sweats. She denies headache, visual, ocular auditory symptoms. She denies respiratory symptoms. She denies cardiac symptoms. She denies hematemesis or coffee-ground emesis. She has not noted color change in her stool. She denies intolerance to greasy or fried foods. Prior similar symptoms: Yes (To other medications) Recent Illness/Hospitalization: No PFSH PFSH Medical History Anxiety Asthma Disassociation disorder Fibromyalgia PTSD (post-traumatic stress disorder) Rheumatoid arthritis Scoliosis Home Medications mirtazapine 15 mg tablet 15 mg PO QHS PRN PRN Sleep 08/18/16 [History Last Taken 01/03/17] clonazepam 0.5 mg tablet (Klonopin) 0.5 mg PO BID ANXIETY 01/04/17 [History Last Taken 01/03/17] sertraline 50 mg tablet 50 mg PO DAILY MENTAL HEALTH 01/04/17 [History Last Taken 01/03/17] azithromycin 250 mg tablet 250 mg PO DAILY #6 TABLETS 03/05/22 [Rx Last Taken Unknown] benzonatate 200 mg capsule 200 mg PO BID PRN Cough 03/05/22 [History Last Taken Unknown] ibuprofen 600 mg tablet 600 mg PO PRN PRN Pain 03/05/22 [History Last Taken Unknown] prednisone 10 mg tablet See Taper PO DAILY 03/05/22 [History Last Taken Unknown] meloxicam 15 mg tablet 15 mg PO DAILY #10 tabs 04/13/22 [Rx Last Taken Unknown] Allergy/AdvReac Type Severity Reaction Status Date / Time carbamazepine Allergy NEEDS Verified 04/13/22 13:40 [From Carbatrol] FOLLOW-UP cyclobenzaprine HCl Allergy Other Verified 04/13/22 13:40 [From Flexeril] escitalopram oxalate Allergy Other Verified 04/13/22 13:40 [From Lexapro] gabapentin Allergy Other Verified 04/13/22 13:40 hydromorphone HCl Allergy Other Verified 04/13/22 13:40 [From Dilaudid] hydroxyzine HCl Allergy Other Verified 04/13/22 13:40 [From Vistaril] hydroxyzine pamoate Allergy Other Verified 04/13/22 13:40 [From Vistaril] Influenza Virus Vaccines Allergy Hives Verified 04/13/22 13:40 lactose Allergy Other Verified 04/13/22 13:40 meperidine HCl [From Demerol] Allergy Other Verified 04/13/22 13:40 naproxen [From Naprosyn] Allergy Other Verified 04/13/22 13:40 orphenadrine [From Norflex] Allergy NEEDS Verified 04/13/22 13:40 FOLLOW-UP paroxetine mesylate Allergy Other Verified 04/13/22 13:40 [From PEXEVA] quetiapine fumarate Allergy Other Verified 04/13/22 13:40 [From Seroquel] sulfamethoxazole Allergy Other Verified 04/13/22 13:40 [From Bactrim] trimethoprim [From Bactrim] Allergy Other Verified 04/13/22 13:40 venlafaxine HCl Allergy Other Verified 04/13/22 13:40 [From Effexor] venom-honey bee Allergy Other Verified 04/13/22 13:40 [bee venom (honey bee)] Social History (Updated 04/20/22 @ 11:[address] Ariel Mac MD) household members: significant other Smoking Status: Current some day smoker tobacco type: cigarettes alcohol intake: current alcohol intake frequency: holidays/special occasions only substance use type: does not use ROS ROS ED Constitutional Constitutional ED: Denies chills, fever(s), subjective, sweats or weight loss Eyes Eyes: Denies blurry vision, change in vision or diplopia ENT ENT ED: Denies ear pain, rhinorrhea or sore throat Cardiovascular Cardiovascular: Denies chest pain, orthopnea, palpitations, paroxysmal nocturnal dyspnea or racing heartbeat Respiratory/Chest Respiratory/Chest: Denies cough, dyspnea, dyspnea on exertion, orthopnea or paroxysmal nocturnal dyspnea Gastrointestinal Gastrointestinal: Denies abdominal pain, constipation, diarrhea, melena or nausea Genitourinary Genitourinary ED: Denies dysuria, hematuria or urinary frequency Musculoskeletal Musculoskeletal: Denies arthralgias, back pain, myalgias or neck pain Neurologic Neurologic: Denies headache(s), paresthesias or weakness Psychiatric Psychiatric: Reports anxiety and depression; Denies suicidal ideation Endocrine Endocrinology: Reports cold intolerance and heat intolerance Hematologic/Lymphatic Hematologic/Lymphatic: Reports systems reviewed and no addt'l complaints, except as documented Allergic/Immunologic Allergic/Immunologic ED: Denies mouth swelling or tongue swelling EXAM Physical Exam Const Vital Signs: 04/20/22 09:54 Temperature 98.6 F Temperature Source Temporal Pulse Rate 74 Respiratory Rate 14 Blood Pressure 123/71 H Blood Pressure Mean 88 Pulse Ox 98 Oxygen Delivery Method Room Air Positive well nourished, well developed and obese General Appearance ED: well developed and NAD; Negative for cyanotic, diaphoretic or pallor Nutritional Appearance: obese HEENT Reports dry mucous membranes HEENT Narrative: Head is atraumatic normocephalic. Ears normal. Nares patent. Posterior pharynx out erythema or exudate. Uvula is midline. There is no deviation tongue with protrusion. Mouth ED: Yes dry mucous membranes Mouth: dry mucous membranes Eyes PERRL and EOMs intact bilaterally General Eye ED: Negative for pale conjunctiva or scleral icterus Neck no lymphadenopathy, supple and no JVD Neck Narrative: Trachea is. There is no in-store expiratory stridor. Chest Wall inspection of chest normal and palpation of chest normal Resp normal respiratory effort and clear to auscultation bilaterally Cardio regular rate, regular rhythm, S1 normal heart sound, S2 normal heart sound and no murmurs GI normal to inspection, nondistended, normoactive bowel sounds, non-distended, hepatosplenomegaly and no masses; Negative for non-tender Palpation: tender Back/Spine no CVA tenderness Cervical Spine: Negative for cervical spine tenderness Thoracic Spine / Upper Back: Negative for thoracic spinal tenderness Lumbar Spine / Lower Back: Negative for lumbar spinal tenderness Extremity normal to inspection General Extremety ED: Negative for edema or tenderness General Extremity: Negative for edema Neuro oriented x3 and CN's II-XII intact bilaterally Sensorium / Orientation: alert Psych mental status grossly normal Skin no rashes or lesions noted, no wounds and skin turgor normal General Skin Exam: Negative for jaundice or pallor [facility] MDM Narrative Medical decision making narrative: Patient presents with in all likelihood adverse reaction to meloxicam versus viral illness versus affective disorder. Patient received Zofran and fluids for her nausea and dehydration. Electrolytes were obtained to assess for renal function, electrolyte abnormality and anion gap. Prior records were reviewed. History & Record Review Discussion w/independent historian: Patient Additional record(s) reviewed:: Prior outpatient record (Numerous visits for fibromyalgia, anxiety pseudoseizure) and Prior labs Lab Data Attestation: I reviewed the patient's lab results. Lab results narrative: Based Sigmund panel is unremarkable. Glucose and chloride are slightly elevated 108 and 109 respectively. GFR is normal. Labs: Laboratory Results - last 24 hr 04/20/22 10:47 Sodium 143 Potassium 4.5 Chloride 109 H Carbon Dioxide 29.0 Anion Gap 5 BUN 15 Creatinine 0.90 Estim Creat Clear Calc 67.67 Est GFR (MDRD) Af Amer 85 Est GFR (MDRD) Non-Af 70 BUN/Creatinine Ratio 16.7 Glucose 108 H Calcium 9.0 Differential Diagnosis Differential Diagnosis: Documented under the MDM portion of the chart Treatment and Re-Evaluation :: Patient was reassessed after Zofran and fluids. She does report feeling better. She is had no dry heaves. Discharge Plan Triage Chief Complaint: Nausea/Vomiting ED Provider: Ariel Mac Dx/Rx/DC Orders Clinical Impression: Nausea & vomiting, Fibromyalgia, Anxiety Instructions: ED Vomiting (Adult) Prescriptions: No Action mirtazapine 15 MG tablet 15 mg PO QHS PRN PRN (Reason: Sleep) Label Comments: clonazepam [Klonopin] 0.5 MG tablet 0.5 mg PO BID sertraline 50 MG tablet 50 mg PO DAILY prednisone 10 mg tablet See Taper PO DAILY Taper: Prednisone Taper 60 mg WITH BREAKFAST for 3 Days and 0 Hour 50 mg WITH BREAKFAST for 3 Days and 0 Hour 40 mg WITH BREAKFAST for 3 Days and 0 Hour 30 mg WITH BREAKFAST for 3 Days and 0 Hour 20 mg WITH BREAKFAST for 3 Days and 0 Hour 10 mg WITH BREAKFAST for 3 Days and 0 Hour Label Comments: Take 4 tabs(40 mg) for 3 days, then 3 tabs (30 mg) for 3 days, 2 tabs (20 mg) for 3 days then 1 tab (10 mg) daily for 3 days benzonatate 200 mg capsule 200 mg PO BID PRN (Reason: Cough) Label Comments: take one capsule twice daily as needed for cough ibuprofen 600 mg tablet 600 mg PO PRN PRN (Reason: Pain) Label Comments: Take one tab every 6-8 hours as needed for pain azithromycin [azithromycin] 250 mg tablet 250 mg PO DAILY Qty: 6 0RF Rx Instructions: double dose (2 tabs) on first dose/day meloxicam 15 mg tablet 15 mg PO DAILY Qty: 10 0RF Primary Care Provider: Sally Gandara Referrals: Sally Gandara [Primary Care Provider] - 1-2 Days if not improving Disposition Disposition: Home, Self Care
[2022-04-20 12:21] VITALS: BP 116/83; PULSE 62; O2SAT 100
== END 2022-04-20 12:22 | disposition home or self-care (01) ==
PROVIDERS: Emergency Provider Emergency Medicine; Visit Provider Emergency Medicine
DX: R11.2 Nausea with vomiting, unspecified (principal); F41.9 Anxiety disorder, unspecified; R10.13 Epigastric pain; M79.7 Fibromyalgia; F17.210 Nicotine dependence, cigarettes, uncomplicated; E86.0 Dehydration
CPT/HCPCS: 36415; 80048; 99285; J7030; J2405

== ENCOUNTER 2022-07-11 11:36 | Emergency (ER) | payer MEDICAID, SELFPAY ==
[2022-07-11 11:37] VITALS: BP 100/69; PULSE 65; RESP 18; TEMP 36.5; O2SAT 93; O2SAT 94; BMI 26.9
[2022-07-11] MEDS: Ondansetron 4 MG/2 ML Vial IV (11:58)
[2022-07-11] MEDS: 0.9% Normal Saline 1,000 ML 1000 ML IV (11:58)
[2022-07-11 12:06] LABS: Absolute Lymphocyte Count 0.96 X10^3/uL (0.83-4.51); Absolute Neutrophil Count 9.2 X10^3/uL (2.0-7.7); Basophil# 0.03 X10^3/uL; Basophil% 0.3 % (0-1); Eosinophil# 0.01 X10^3/uL; Eosinophils% 0.1 % (0-5); Hematocrit 45.1 % (37-47); Hemoglobin 14.8 g/dL (12.0-15.0); Lymphocyte # 0.96 X10^3/ul (0.83-4.51); Lymphocyte % 9.1 % (19-41); Mean Corp Hgb Conc 32.8 g/dL (32-36); Mean Corpuscular Hgb 28.3 pg (27.0-32.0); Mean Corpuscular Volume 86.2 fL (81-99); Mean Platelet Vol. 10.3 fl (6.2-12.0); Monocyte# 0.28 X10^3/uL; Monocyte% 2.7 % (0-10); NRBC Flagged by Analyzer 0 % (0-5); Neutrophil % 87.6 % (47-70); Platelet Count 213 K/mm3 (150-450); RBC Distribution Width CV 13.5 % (11.6-14.6); Red Blood Count 5.23 M/mm3 (4.2-5.4); White Blood Count 10.5 K/mm3 (4.4-11.0)
[2022-07-11 12:21] LABS: ALB/GLOB Ratio 1.4 RATIO (0.9-2.4); AST(SGOT) 20 U/L (15-37); Alanine Aminotransfer ALT/SGPT 23 U/L (13-56); Albumin, Serum 4.2 g/dL (3.2-5.0); Alkaline Phosphatase 71 U/L (45-117); Anion Gap 6 (5-15); BUN 18 mg/dL (7-18); BUN/Creat Ratio 18.1 RATIO (10-20); Calcium,Total 9.4 mg/dL (8.5-10.1); Chloride 109 mmol/L (98-107); EST Glomerular Filtration Rate 62 mL/min (>60); Est Glom Filt Rate - Afr Amer 75 mL/min (>60); Estimated Creatinine Clearance 60.91 ml/min; Glucose 122 mg/dL (74-106); Lipase 24 U/L (13-75); Potassium 4.6 mmol/L (3.5-5.1); Protein, Total 7.2 g/dL (6.4-8.2); Sodium Level 140 mmol/L (136-145)
[2022-07-11] MEDS: Famotidine 200 MG/20 ML MDV 20 MG in 0.9% Normal Saline (Pres. free 8 ML 300 MG IV (12:29)
--- NOTE | 2022-07-11 13:10 | EX.ED.DYSGE1 ---
HPI History of Present Illness Chief Complaint: Nausea/Vomiting/Diarrhea PFSH PFS Medical History Anxiety Asthma Disassociation disorder Fibromyalgia PTSD (post-traumatic stress disorder) Rheumatoid arthritis Scoliosis Home Medications mirtazapine 15 mg tablet 15 mg PO QHS PRN PRN Sleep 08/18/16 [History Last Taken 01/03/17] clonazepam 0.5 mg tablet (Klonopin) 0.5 mg PO BID ANXIETY 01/04/17 [History Last Taken 01/03/17] sertraline 50 mg tablet 50 mg PO DAILY MENTAL HEALTH 01/04/17 [History Last Taken 01/03/17] meloxicam 15 mg tablet 15 mg PO DAILY #10 tabs 04/13/22 [Rx Last Taken Unknown] testosterone 1 % (50 mg/5 gram) transdermal gel packet 07/11/22 [History Last Taken Unknown] Allergy/AdvReac Type Severity Reaction Status Date / Time carbamazepine Allergy NEEDS Verified 07/11/22 11:41 [From Carbatrol] FOLLOW-UP cyclobenzaprine HCl Allergy Other Verified 07/11/22 11:41 [From Flexeril] escitalopram oxalate Allergy Other Verified 07/11/22 11:41 [From Lexapro] gabapentin Allergy Other Verified 07/11/22 11:41 hydromorphone HCl Allergy Other Verified 07/11/22 11:41 [From Dilaudid] hydroxyzine HCl Allergy Other Verified 07/11/22 11:41 [From Vistaril] hydroxyzine pamoate Allergy Other Verified 07/11/22 11:41 [From Vistaril] Influenza Virus Vaccines Allergy Hives Verified 07/11/22 11:41 lactose Allergy Other Verified 07/11/22 11:41 meperidine HCl [From Demerol] Allergy Other Verified 07/11/22 11:41 naproxen [From Naprosyn] Allergy Other Verified 07/11/22 11:41 orphenadrine [From Norflex] Allergy NEEDS Verified 07/11/22 11:41 FOLLOW-UP paroxetine mesylate Allergy Other Verified 07/11/22 11:41 [From PEXEVA] quetiapine fumarate Allergy Other Verified 07/11/22 11:41 [From Seroquel] sulfamethoxazole Allergy Other Verified 07/11/22 11:41 [From Bactrim] trimethoprim [From Bactrim] Allergy Other Verified 07/11/22 11:41 venlafaxine HCl Allergy Other Verified 07/11/22 11:41 [From Effexor] venom-honey bee Allergy Other Verified 07/11/22 11:41 [bee venom (honey bee)] Social History (Updated 04/20/22 @ 11:[address] Ariel Mac MD) household members: significant other Smoking Status: Current some day smoker tobacco type: cigarettes alcohol intake: current alcohol intake frequency: holidays/special occasions only substance use type: does not use EXAM Physical Exam Const Vital Signs: 07/11/22 11:37 07/11/22 11:37 Temperature 97.7 F L Temperature Source Temporal Pulse Rate 65 Respiratory Rate 18 Blood Pressure 100/69 Blood Pressure Mean 79 Pulse Ox 93 94 Oxygen Delivery Method Room Air Room Air [facility] MDM Narrative Medical decision making narrative: HISTORY OF PRESENT ILLNESS: 51-year-old female here with cute onset of nausea vomiting diarrhea. She denies any chest pain or shortness of breath. Denies any blood in her stool, melena, medic easier, hematemesis. Denies any sick contacts, recent hospitalization or antibiotic use REVIEW OF SYSTEMS: Pertinent positives: Nausea vomiting diarrhea Pertinent negatives: Abdominal pain, chest pain, shortness of breath PHYSICAL EXAM: Nursing triage notes reviewed, Vital signs reviewed Constitutional: please see mdm HENT: MMM Eyes: Pupils equal round and reactive to light, Extraocular muscles intact Neck: No stridor, no JVD, full neck ROM Lungs: Clear to auscultation, No wheezing or rales. No increased work of breathing, no conversational dyspnea, no accessory muscle use, no nasal flaring. No respiratory distress noted Heart: Regular rate and rhythm, No murmurs, No rubs and No gallops, 2+ distal pulses (radial, femoral, posterior tibial) in all extremities Abdomen: Soft, there is no tenderness, rigidity, rebound or guarding, no obvious peritoneal signs, no palpable pulsatile abdominal masses, no auscultated abdominal bruit : No CVAT Extremities: No edema Neuro: No focal neurological deficits, cranial nerves II through XII intact, 5/5 strength in all extremities. Intact sensation to light touch in all extremities, 2+ reflexes bilateral patella tendons. Normal gait. No ataxia. Skin: No rash or lesions noted MEDICAL DECISION MAKING: Chief Complaint: Nausea vomiting diarrhea External records reviewed: CT scan of the abdomen pelvis from July 2021 shows no acute abnormalities Factors affecting care: Fibromyalgia Social determinants of health: Every day smoker History obtained from others: None Consults: ALL IMAGES HAVE BEEN PERSONALLY REVIEWED AND INTERPRETED BY MYSELF. MDM Narrative: The patient was hemodynamically stable, afebrile, nontoxic-appearing but abdominal exam was benign not consistent with acute surgical process. I considered the following differential diagnosis: Foodborne illness, viral gastroenteritis, electrolyte abnormality, dehydration, anemia, obstruction or perforation Patient was treated with Zofran, Pepcid and 1 L normal saline. I considered obtaining a CT scan of the abdomen pelvis or gallbladder ultrasound however the patient and right upper quadrant tenderness, no jaundice. Abdominal exam was not consistent with perforation or obstruction. I think the risk of CT induced malignancy, contrast allergy or extravasation are higher than risk of missed diagnosis at this time and as such I do not think the patient would benefit from advanced imaging the abdomen. I obtained labs to rule out the after mentioned differential diagnoses. Labs are unremarkable. The patient was able tolerate p.o. here in the emergency department given Zofran for home-going. She is likely suffering from foodborne illness versus viral gastroenteritis. She was given strict return precautions and follow-up instructions. Patient expressed understanding and agreed with the plan. Total critical care time today provided was at least 0 minutes. This excludes separately billable procedures. There was a high probability of clinically significant/life threatening deterioration in the patient's condition which required my urgent intervention. Shared decision making: I will have a discussion with the patient and or visitors regarding risk/benefits of further testing or admission. They will be made aware of of the risk/benefits inherent in this decision they will be given the opportunity to voice understanding. Lab Data Attestation: I reviewed the patient's lab results. Lab results narrative: CBC without leukocytosis, severe anemia, no thrombocytopenia. BMP without evidence of significant electrolyte abnormalities, no anion gap, no acute kidney injury. LFTs show no evidence of hepatobiliary pathology. Lipase is wnl indicating no pancreatic inflammation. Labs: Laboratory Results - last 24 hr 07/11/22 07/11/22 12:00 12:00 WBC 10.5 RBC 5.23 Hgb 14.8 Hct 45.1 MCV 86.2 MCH 28.3 MCHC 32.8 RDW Std Deviation 43.0 RDW Coeff of Daniel 13.5 Plt Count 213 MPV 10.3 Immature Gran % (Auto) 0.200 Neut % (Auto) 87.6 H Lymph % (Auto) 9.1 L [place] % (Auto) 2.7 Eos % (Auto) 0.1 Baso % (Auto) 0.3 Absolute Neuts (auto) 9.2 H Absolute Lymphs (auto) 0.96 Nucleated RBC % 0 Sodium 140 Potassium 4.6 Chloride 109 H Carbon Dioxide 25.0 Anion Gap 6 BUN 18 Creatinine 1.00 Estim Creat Clear Calc 60.91 Est GFR (MDRD) Af Amer 75 Est GFR (MDRD) Non-Af 62 BUN/Creatinine Ratio 18.1 Glucose 122 H Calcium 9.4 Total Bilirubin 0.40 AST 20 ALT 23 Alkaline Phosphatase 71 Total Protein 7.2 Albumin 4.2 Globulin 3.0 Albumin/Globulin Ratio 1.4 Lipase 24 Discharge Plan Triage Chief Complaint: Nausea/Vomiting/Diarrhea ED Provider: Stephane Zaidi Dx/Rx/DC Orders Prescriptions: No Action mirtazapine 15 MG tablet 15 mg PO QHS PRN PRN (Reason: Sleep) Label Comments: clonazepam [Klonopin] 0.5 MG tablet 0.5 mg PO BID sertraline 50 MG tablet 50 mg PO DAILY meloxicam 15 mg tablet 15 mg PO DAILY Qty: 10 0RF testosterone 1 % (50 mg/5 gram) gel in packet Primary Care Provider: Sally Gandara Referrals: Sally Gandara [Primary Care Provider] -
[2022-07-11] MEDS: proMETHazine 25 MG Tablet 12.5 MG PO (13:34)
[2022-07-11 13:38] VITALS: PULSE 89; RESP 18; O2SAT 100
== END 2022-07-11 13:38 | disposition home or self-care (01) ==
PROVIDERS: Emergency Provider Emergency Medicine; Visit Provider Emergency Medicine
DX: R11.2 Nausea with vomiting, unspecified (principal); M06.9 Rheumatoid arthritis, unspecified; R19.7 Diarrhea, unspecified; F17.210 Nicotine dependence, cigarettes, uncomplicated; F41.9 Anxiety disorder, unspecified; Z79.899 Other long term (current) drug therapy
CPT/HCPCS: 80053; 83690; 85025; 96361; 96365; 96375; 99284; J7030; J2405; J3490

== ENCOUNTER 2023-07-29 16:58 | Emergency (ER) | payer MEDICAID, SELFPAY ==
[2023-07-29 17:00] VITALS: BP 112/71; PULSE 85; RESP 18; TEMP 36.2; O2SAT 96; BMI 28.8
--- NOTE | 2023-07-29 17:50 | EDS_ITS ---
HPI History of Present Illness Chief Complaint: Headache Onset/Context/Timing Onset: Yesterday Context: Sudden Timing: Continuous Quality -Headache: Positive for Sharp and Dull Location: Frontal and occipital Worsened by: Nothing Relieved by: Nothing Associated Symptoms/Injury Associated Symptoms: Positive for Fever (Subjective) and Photophobia; Negative for Nausea, Vomiting, Sore Throat, Sinus Pressure, Numbness, Tingling, Preceding Aura, Visual Changes, Blurred Vision or Visual Loss Injury - FRAZIER: Negative for Direct Trauma Narrative Narrative: Patient presents with a headache that began yesterday. Patient states that it began rather suddenly. Patient states it has been constant since yesterday. Patient admits to some subjective fevers and sweats. Patient states her pain is mainly over the frontal area but also is in the occipital scalp at the base of her head and upper neck. Patient states nothing makes her headache better and nothing makes it worse. Patient states she does have some photophobia. Patient denies any nausea or vomiting. [facility] Medical History (Updated 07/29/23 @ 21:[address] Michael Sweeney, DO) Fibromyalgia Rheumatoid arthritis Scoliosis Disassociation disorder Anxiety Asthma PTSD (post-traumatic stress disorder) Home Medications ?Medication ?Instructions ?Recorded ?Last Taken ?Type mirtazapine 15 mg tablet 15 mg PO QHS PRN PRN Sleep 08/18/16 01/03/17 History clonazepam 0.5 mg tablet (Klonopin) 0.5 mg PO BID ANXIETY 01/04/17 01/03/17 Hi story sertraline 50 mg tablet 50 mg PO DAILY MENTAL HEALTH 01/04/17 01/03/17 History meloxicam 15 mg tablet 15 mg PO DAILY #10 tabs 04/13/22 Unknown Rx ondansetron 4 mg disintegrating 4 mg PO Q8H PRN nausea and 07/11/22 Unknown Rx tablet vomiting 5 days #15 tabs testosterone 1 % (50 mg/5 gram) 07/11/22 Unknown History transdermal gel packet Allergy/AdvReac Type Severity Reaction Status Date / Time carbamazepine (From Allergy NEEDS Verified 07/29/23 17:00 Carbatrol) FOLLOW-UP cyclobenzaprine HCl (From Allergy Other Verified 07/29/23 17:00 Flexeril) escitalopram oxalate (From Allergy Other Verified 07/29/23 17:00 Lexapro) gabapentin Allergy Other Verified 07/29/23 17:00 hydromorphone HCl (From Allergy Other Verified 07/29/23 17:00 Dilaudid) hydroxyzine HCl (From Allergy Other Verified 07/29/23 17:00 Vistaril) hydroxyzine pamoate (From Allergy Other Verified 07/29/23 17:00 Vistaril) Influenza Virus Vaccines Allergy Hives Verified 07/29/23 17:00 lactose Allergy Other Verified 07/29/23 17:00 meperidine HCl (From Demerol) Allergy Other Verified 07/29/23 17:00 naproxen (From Naprosyn) Allergy Other Verified 07/29/23 17:00 orphenadrine (From Norflex) Allergy NEEDS Verified 07/29/23 17:00 FOLLOW-UP paroxetine mesylate (From Allergy Other Verified 07/29/23 17:00 PEXEVA) quetiapine fumarate (From Allergy Other Verified 07/29/23 17:00 Seroquel) sulfamethoxazole (From Allergy Other Verified 07/29/23 17:00 Bactrim) trimethoprim (From Bactrim) Allergy Other Verified 07/29/23 17:00 venlafaxine HCl (From Allergy Other Verified 07/29/23 17:00 Effexor) venom-honey bee (bee venom Allergy Other Verified 07/29/23 17:00 (honey bee)) Surgical History History of total hysterectomy Social History household members: significant other Smoking Status: Current some day smoker tobacco type: cigarettes alcohol intake: current alcohol intake frequency: holidays/special occasions only substance use type: does not use ROS ROS ED Constitutional Constitutional ED: Reports fever(s), subjective and sweats Eyes Eyes: Denies blurry vision or change in vision ENT ENT ED: Denies rhinorrhea or sore throat Cardiovascular Cardiovascular: Denies chest pain or palpitations Respiratory/Chest Respiratory/Chest: Denies cough or dyspnea Gastrointestinal Gastrointestinal: Denies nausea or vomiting Genitourinary Genitourinary ED: Denies dysuria or hematuria Musculoskeletal Musculoskeletal: Reports neck pain; Denies back pain Integumentary Denies abscess or rash Neurologic Neurologic: Reports headache(s); Denies weakness Allergic/Immunologic Allergic/Immunologic ED: Denies mouth swelling or urticaria EXAM Physical Exam Const Vital Signs: 07/29/23 17:00 07/29/23 19:00 Temperature 97.1 F L Temperature Source Temporal Pulse Rate 85 80 Respiratory Rate 18 17 Blood Pressure 112/71 117/73 Blood Pressure Mean 84 87 Pulse Ox 96 96 Oxygen Delivery Method Room Air Room Air Positive well nourished and well developed General Appearance ED: well developed and NAD HEENT Reports normocephalic and moist mucous membranes atraumatic Neck supple, no meningeal signs and no JVD Resp normal respiratory effort and clear to auscultation bilaterally Cardio regular rate and regular rhythm GI non-tender and non-distended Palpation: soft Extremity normal to inspection and full ROM General Extremety ED: Negative for edema or tenderness General Extremity: Negative for edema Neuro oriented x3, CN's II-XII intact bilaterally and no sensory deficits noted [place] Coma Scale: document GCS findings Spontaneous Obeys Commands Oriented 15 Sensorium / Orientation: awake and alert Speech: speech normal Motor Exam: strength 5/5 throughout Psych mental status grossly normal MDM MDM MDM Narrative Medical decision making narrative: Differential diagnosis includes migraine headache, tension headache, intracranial bleeding, viral illness, sinusitis, and cluster headache. CT scan of the brain will be obtained to assess for intracranial bleeding and sinusitis. Radiography Diagnostic Testing: Clinical Impression(s) from Imaging Studies Brain CT 07/29/23 17:57 IMPRESSION: Normal unenhanced CT scan of the brain. Electronically Signed: Vinny Grace MD at 19:36 EDT , CT scan of the brain was obtained. There is no acute intracranial abnormality. This was interpreted by the radiologist and was also independently reviewed by myself. Treatment and Re-Evaluation Narrative: Patient was given IV fluids, Reglan, and Benadryl. Patient was feeling better on reevaluation. Patient was advised of her findings. Patient was instructed to rest in a dark quiet room. Patient was instructed to follow-up with her primary care physician in 5 to 7 days. Patient understood and was agreeable with the plan. All questions were answered. Discharge Plan Triage Chief Complaint: Headache ED Provider: Michael Sweeney Dx/Rx/DC Orders Clinical Impression: Headache, Fibromyalgia, Anxiety Instructions: ED Headache Unspecified Prescriptions: No Action mirtazapine 15 MG tablet 15 mg PO QHS PRN PRN (Reason: Sleep) Patient Comments: clonazepam [Klonopin] 0.5 MG tablet 0.5 mg PO BID sertraline 50 MG tablet 50 mg PO DAILY meloxicam 15 mg tablet 15 mg PO DAILY Qty: 10 0RF testosterone 1 % (50 mg/5 gram) gel in packet ondansetron 4 mg tablet,disintegrating 4 mg PO Q8H PRN (Reason: nausea and vomiting) 5 Days Qty: 15 0RF Primary Care Provider: Sally Gandara Referrals: Sally Gandara [Primary Care Provider] - 5-7 Days Print Language: Malaysian Disposition Disposition: Home, Self Care
--- NOTE | 2023-07-29 17:57 | CT_ITS ---
STUDY: CT BRAIN WITHOUT CONTRAST REASON FOR EXAM: Female, 52 years old. Pain RADIATION DOSAGE (If Supplied By Facility): CTDIvol = ( 47.06 ) mGy, DLP = ( 837.39 ) mGycm TECHNIQUE: Transaxial CT imaging of the brain was performed without administration of intravenous contrast material. Individualized dose optimization techniques were used for this CT. COMPARISON: October 08, 2017. FINDINGS: Normal soft tissue structures. Normal calvarium. Normal size ventricles and extra-axial spaces for the patient''s age. Normal white matter tracts of the cerebral hemispheres. Normal basal ganglia and thalami. Normal brainstem. Normal cerebellum. There is no intracranial hemorrhage. There are no findings of an acute ischemic infarction. Normal visualized paranasal sinuses. No significant change since prior exam CT/Brain/Head without Contrast IMPRESSION: Normal unenhanced CT scan of the brain. Electronically Signed: Vinny Grace MD at 19:36 EDT ,
[2023-07-29] MEDS: Metoclopramide 10 MG/2 ML Vial IV (18:18)
[2023-07-29] MEDS: DiphenhydrAMINE 50 MG/ML Syringe 25 MG IV (18:18)
[2023-07-29] MEDS: 0.9% Normal Saline (1000mL) 1,000 ML 999 ML IV (18:18)
[2023-07-29 19:00] VITALS: BP 117/73; PULSE 80; RESP 17; O2SAT 96
[2023-07-29 21:11] VITALS: RESP 16
== END 2023-07-29 21:12 | disposition home or self-care (01) ==
PROVIDERS: Emergency Provider Emergency Medicine; Visit Provider Emergency Medicine
DX: R51.9 Headache, unspecified (principal); M06.9 Rheumatoid arthritis, unspecified; F41.9 Anxiety disorder, unspecified; M79.7 Fibromyalgia; F43.10 Post-traumatic stress disorder, unspecified; Z79.899 Other long term (current) drug therapy; Z90.710 Acquired absence of both cervix and uterus; F17.210 Nicotine dependence, cigarettes, uncomplicated
CPT/HCPCS: 70450; 96361; 96374; 96375; 99283; J7030; A4216

== ENCOUNTER 2023-10-02 20:32 | Emergency (ER) | payer MEDICAID, SELFPAY ==
[2023-10-02 20:33] VITALS: BP 127/75; PULSE 78; RESP 23; TEMP 36.6; O2SAT 97; BMI 30.9
--- NOTE | 2023-10-02 20:51 | ED.RN ---
During triage, the pt. was able to clearly correct the manager library on correct pronouns for pt. However, this RN attempted to complete required ED documentation and neuro assessment on the patient but pt. was slurring speech and unable to report accurate information on symptoms or identification. This RN documented assessment as accurately as possible based on reported s/s of patient. MD notified.
--- NOTE | 2023-10-02 21:07 | ED.RN ---
Pt friend giving this nurse a med list. Pt mummling and stating I do not take these meds because they gave me a seizure about a month ago. Pt pointing to Clopidogrel, famotidine, atorvastatin, and sumatriptan. This nurse explaining that one of the meds is a blood thinner and if she has a hx of cva that it is important to not just stop without talking to her doc. Pt stating I have an appointment to tell my doctor I stopped
--- NOTE | 2023-10-02 21:13 | ED.RN ---
This RN attempted to do an NIHSS, d/t pt. c/o of right sided pain and tingling. Pt. refused to try and extend her arms or lift her legs when instructed to and when assisted. Pt. reported right sided sensory differences when this RN assessed her left leg. This RN attempted to clarify and the pt. was unable to explain s/s. This RN filled out the NIHSS based on the assessment this RN was able to complete. However, the pt. is poor historian. made aware.
[2023-10-02 21:32] VITALS: BP 112/78; PULSE 77; RESP 16; O2SAT 94
[2023-10-02 22:00] VITALS: BP 99/78; PULSE 106; RESP 18; O2SAT 98
--- NOTE | 2023-10-02 22:07 | CT_ITS ---
EXAM: CT HEAD WITHOUT INTRAVENOUS CONTRAST CLINICAL INDICATION: reported Siecure like activity TECHNIQUE: Multiple axial images were obtained of the head without intravenous contrast. This CT exam was performed using one or more of the following dose reduction techniques: automated exposure control, adjustment of the mA and/or kV according to patient size, and/or use of iterative reconstruction technique. COMPARISON: CT head, 07/29/2023. FINDINGS: BRAIN AND EXTRA-AXIAL SPACES: No significant abnormality. No intra- or extra-axial hemorrhage. No evidence of acute infarct. No intracranial mass or mass effect. There is preservation of the lyle/white matter interface. Ventricles are appropriate for age. Basal cisterns are patent. BONES/JOINTS: No significant abnormality. No discrete lytic or blastic abnormalities. SINUSES: No significant findings. MASTOID AIR CELLS: No significant effusion. ORBITS: No acute findings. CT/Brain/Head without Contrast IMPRESSION: Negative head/brain CT without intravenous contrast. Electronically Signed: Fly Browne DO at 23:10 EDT ,
--- NOTE | 2023-10-02 22:08 | EKG12_ITS ---
Test Reason : SEIZURE Blood Pressure : / mmHG Vent. Rate : 068 BPM Atrial Rate : 068 BPM P-R Int : 156 ms QRS Dur : 076 ms QT Int : 382 ms P-R-T Axes : 058 002 012 degrees QTc Int : 406 ms Normal sinus rhythm Normal ECG Confirmed by GUIDO BLANK, MERY ([id number]), publishing editor MAXIMINO JOSE ([id number]) on 10/04/2023 6:47:15 AM Referred By: Confirmed By:JOSE LORA MD
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
[2023-10-02 22:22] LABS: Absolute Lymphocyte Count 2.62 X10^3/uL (0.83-4.51); Absolute Neutrophil Count 3.8 X10^3/uL (2.0-7.7); Basophil# 0.04 X10^3/uL; Basophil% 0.6 % (0-1); Eosinophil# 0.09 X10^3/uL; Eosinophils% 1.3 % (0-5); Hemoglobin 13.7 g/dL (12.0-15.0); Lymphocyte # 2.62 X10^3/ul (0.83-4.51); Lymphocyte % 37.6 % (19-41); Mean Corp Hgb Conc 32.6 g/dL (32-36); Mean Corpuscular Hgb 27.7 pg (27.0-32.0); Mean Platelet Vol. 12.8 fl (6.2-12.0); Monocyte% 5.7 % (0-10); NRBC Flagged by Analyzer 0 % (0-5); Neutrophil # 3.79 X10^3/uL (2.7-7.7); Neutrophil % 54.5 % (47-70); Platelet Count 222 K/mm3 (150-450); RBC Distribution Width CV 13.3 % (11.6-14.6); RBC Distribution Width SD 41.6 fl (35.1-43.9); Red Blood Count 4.94 M/mm3 (4.2-5.4)
[2023-10-02] MEDS: 0.9% Normal Saline (1000mL) 1,000 ML 1000 ML IV (22:29)
[2023-10-02] MEDS: LORazepam 2 MG/ML Syringe 1 MG IV (22:30)
--- NOTE | 2023-10-02 22:32 | RAD_ITS ---
EXAM: XR CHEST, 1 VIEW CLINICAL INDICATION: chest pain TECHNIQUE: Frontal view of the chest. COMPARISON: 03/05/2022 FINDINGS: LUNGS AND PLEURAL SPACES: No significant abnormality. No consolidation or edema. No pneumothorax. No effusion. HEART: No significant abnormality. Cardiac silhouette not enlarged. MEDIASTINUM: Central airways and mediastinal contour are unremarkable. BONES/JOINTS: No significant abnormality. No acute fracture. SOFT TISSUES: No significant abnormality. RAD/Chest 1 View (Portable) IMPRESSION: No radiographic evidence of acute cardiopulmonary disease. Electronically Signed: Fly Browne DO at 23:08 EDT ,
[2023-10-02 22:38] LABS: Bacteria 0 SEEN /hpf (None Seen); Mucous, Urine 0 SEEN /hpf (<or=2+); Red Blood Cells-Urine 0 SEEN /hpf (0-5); White Blood Cells 0 SEEN /hpf (0-5)
[2023-10-02 22:39] LABS: Color, Urine Yellow (Yellow); Glucose, Dipstick Normal (Normal); Ketone-Dipstick Negative (Negative); Leukocyte Esterase-Dipstick Negative /ul (Negative); Nitrite-Dipstick Negative (Negative); Occult Blood-Urine Negative /ul (Negative); Protein-Dipstick Negative (Negative); Specific Gravity, Urine 1.015 (1.002-1.030); Urine Bilirubin Dipstick Negative (Negative); Urine Clarity Clear (Clear); Urine Urobilinogen Normal (Normal)
[2023-10-02 22:41] LABS: ALB/GLOB Ratio 1.2 RATIO (0.9-2.4); AST(SGOT) 25 U/L (15-37); Alanine Aminotransfer ALT/SGPT 30 U/L (13-56); Albumin, Serum 3.8 g/dL (3.2-5.0); Alkaline Phosphatase 82 U/L (45-117); Anion Gap 7 (5-15); BUN 8 mg/dL (7-18); BUN/Creat Ratio 7.8 RATIO (10-20); Calcium,Total 8.9 mg/dL (8.5-10.1); Chloride 107 mmol/L (98-107); Creatinine, Serum 1.03 mg/dL (0.55-1.02); EST Glomerular Filtration Rate 59 mL/min (>60); Est Glom Filt Rate - Afr Amer 72 mL/min (>60); Estimated Creatinine Clearance 69.41 ml/min; Globulin 3.1 g/dL (2.2-4.2); Glucose 115 mg/dL (74-106); Potassium 3.8 mmol/L (3.5-5.1); Protein, Total 6.9 g/dL (6.4-8.2); Sodium Level 141 mmol/L (136-145); Troponin-I HS 8 pg/mL (3.0-54.0)
[2023-10-02 22:48] LABS: Squamous Epithelial Cells - UA 0-5 SEEN /hpf (5-10)
[2023-10-02 22:52] LABS: Amphetamine Urine VISTA NEGATIVE (<1000 ng/mL); Barbiturate Urine VISTA NEGATIVE (< 200 ng/mL); Benzodiazepine Urine VISTA NEGATIVE (< 200 ng/mL); Cocaine Urine VISTA NEGATIVE (< 300 ng/mL); Ecstacy Urine VISTA NEGATIVE (< 500 ng/mL); Methadone Urine VISTA NEGATIVE (< 300 ng/mL); PCP Urine VISTA NEGATIVE (< 25 ng/mL); THC Urine VISTA NEGATIVE (< 50 ng/mL); Vista UDS pH Range 7
[2023-10-02 23:00] VITALS: BP 111/65; PULSE 85; RESP 18; O2SAT 95
[2023-10-03] VITALS: BP 128/74; PULSE 84; RESP 16; O2SAT 98
[2023-10-03 01:00] VITALS: BP 120/79; PULSE 76; RESP 16; O2SAT 98
[2023-10-03 01:05] VITALS: BP 120/79; PULSE 76; RESP 16; TEMP 37; O2SAT 98
== END 2023-10-03 01:07 | disposition home or self-care (01) ==
PROVIDERS: Emergency Provider Emergency Medicine; Visit Provider Emergency Medicine
DX: R56.9 Unspecified convulsions (principal); F41.9 Anxiety disorder, unspecified; R07.89 Other chest pain; F17.210 Nicotine dependence, cigarettes, uncomplicated; Z85.3 Personal history of malignant neoplasm of breast; Z85.41 Personal history of malignant neoplasm of cervix uteri; Z79.899 Other long term (current) drug therapy; F17.290 Nicotine dependence, other tobacco product, uncomplicated
CPT/HCPCS: 70450; 71045; 80053; 80307; 81001; 84484; 85025; 87631; 93005; 96361; 96374; 99283; J7030; A4216

== ENCOUNTER 2024-02-17 13:01 | Emergency (ER) | payer MEDICAID, SELFPAY ==
[2024-02-17 13:02] VITALS: BP 127/84; PULSE 95; RESP 16; TEMP 35.5; O2SAT 97
[2024-02-17 13:04] VITALS: BMI 30.2
--- NOTE | 2024-02-17 13:30 | CT_ITS ---
STUDY: CT ABDOMEN AND PELVIS WITHOUT CONTRAST REASON FOR EXAM: Female, 53 years old. Flank pain RADIATION DOSAGE (If Supplied By Facility): CTDIvol = ( 9.72 ) mGy, DLP = ( 514.59 ) mGycm TECHNIQUE: Transaxial images were obtained from the dome of the diaphragm to the symphysis pubis without oral contrast, and without intravenous contrast. Sagittal and coronal images were reconstructed. Individualized dose optimization techniques were used for this CT. COMPARISON: 04/02/2021 FINDINGS: The visualized lung bases are unremarkable. The visualized portions of the heart are within normal limits. Liver is unremarkable aside from a 1.5 cm cyst in the right lobe. Normal gallbladder and extrahepatic biliary system. Normal spleen. Normal pancreas. Normal bilateral adrenal glands. Normal right kidney. Normal left kidney. Normal visualized stomach. The majority of the small bowel and colon are unremarkable. There is retained stool noted in the colon. Normal appendix is seen on coronal recon images 40 through 50. However, there is an acute inflammatory process in the right lower quadrant involving the terminal ileum and cecum suggesting typhlitis. I do not see evidence of the uterus or ovaries to suspect this represents pelvic inflammatory disease. The bowel loops involved show submucosal thickening with induration of the pericolonic fat. No perforation or abscess and no demonstrated lymph nodes. Normal abdominal aorta. Normal inferior vena cava. Normal retroperitoneum. Normal urinary bladder. Normal abdominal wall. Normal osseous structures. CT/Abdomen/Pelvis without Cont IMPRESSION: Acute inflammatory process in the right lower quadrant involving the terminal ileum and cecum suggesting typhlitis or this may represent changes of inflammatory bowel disease. No perforation or abscess Inflammatory process does not involve the appendix is normal appendix is seen on coronal recon images 40-50 No suspicious solid organ abnormality No free intraperitoneal fluid, air, or suspicious adenopathy Electronically Signed: Sridhar Eller MD at 14:14 EST ,
--- NOTE | 2024-02-17 13:32 | EX.ED.DYSGE1 ---
HPI History of Present Illness Chief Complaint: Flank Pain Informant: patient Onset/Context/Timing Onset: Days (2) Context: Gradual Onset Timing: Continuous Quality: Pressure Location: Low back Worsened by: Walking Relieved by: Valsalva maneuver Narrative Narrative: Patient presents with low back and flank pain that has been getting worse over the past few days. Patient states she has a history of vesicoureteral reflux and gets frequent urinary tract infections. Patient admits to a low-grade fever of 100 at home. Patient admits to some nausea. Patient admits to some dysuria and urinary frequency. Patient describes her pain as a pressure. Patient states it is mainly over her lower back. Patient denies any vomiting. Patient denies any diarrhea or constipation. [facility] Medical History Fibromyalgia Rheumatoid arthritis Scoliosis Disassociation disorder Anxiety Asthma PTSD (post-traumatic stress disorder) Home Medications ?Medication ?Instructions ?Recorded ?Last Taken ?Type mirtazapine 15 mg tablet 15 mg PO QHS PRN PRN Sleep 08/18/16 01/03/17 History clonazepam 0.5 mg tablet (Klonopin) 0.5 mg PO BID ANXIETY 01/04/17 01/03/17 History sertraline 50 mg tablet 50 mg PO DAILY MENTAL HEALTH 01/04/17 01/03/17 History meloxicam 15 mg tablet 15 mg PO DAILY #10 tabs 04/13/22 Unknown Rx ondansetron 4 mg disintegrating 4 mg PO Q8H PRN nausea and 07/11/22 Unknown Rx tablet vomiting 5 days #15 tabs testosterone 1 % (50 mg/5 gram) 07/11/22 Unknown History transdermal gel packet gabapentin 100 mg capsule 100 mg PO BID 10/02/23 Unknown History mirabegron 50 mg tablet,extended 50 mg PO DAILY 10/02/23 Unknown History release 24 hr (Myrbetriq) ciprofloxacin HCl 500 mg tablet 500 mg PO BID #6 TABLETS 02/17/24 Unknown Rx Allergy/AdvReac Type Severity Reaction Status Date / Time carbamazepine (From Allergy NEEDS Verified 02/17/24 13:02 Carbatrol) FOLLOW-UP cyclobenzaprine HCl (From Allergy Other Verified 02/17/24 13:02 Flexeril) escitalopram oxalate (From Allergy Other Verified 02/17/24 13:02 Lexapro) gabapentin Allergy Other Verified 02/17/24 13:02 hydromorphone HCl (From Allergy Other Verified 02/17/24 13:02 Dilaudid) hydroxyzine HCl (From Allergy Other Verified 02/17/24 13:02 Vistaril) hydroxyzine pamoate (From Allergy Other Verified 02/17/24 13:02 Vistaril) Influenza Virus Vaccines Allergy Hives Verified 02/17/24 13:02 lactose Allergy Other Verified 02/17/24 13:02 meperidine HCl (From Demerol) Allergy Other Verified 02/17/24 13:02 naproxen (From Naprosyn) Allergy Other Verified 02/17/24 13:02 orphenadrine (From Norflex) Allergy NEEDS Verified 02/17/24 13:02 FOLLOW-UP paroxetine mesylate (From Allergy Other Verified 02/17/24 13:02 PEXEVA) quetiapine fumarate (From Allergy Other Verified 02/17/24 13:02 Seroquel) sulfamethoxazole (From Allergy Other Verified 02/17/24 13:02 Bactrim) trimethoprim (From Bactrim) Allergy Other Verified 02/17/24 13:02 venlafaxine HCl (From Allergy Other Verified 02/17/24 13:02 Effexor) venom-honey bee (bee venom Allergy Other Verified 02/17/24 13:02 (honey bee)) Surgical History History of total hysterectomy Social History household members: significant other Smoking Status: Current every day smoker tobacco type: cigarettes and e-cigarettes alcohol intake: current alcohol intake frequency: holidays/special occasions only substance use type: does not use ROS ROS ED Constitutional Constitutional ED: Reports chills and fever(s) Eyes Eyes: Denies blurry vision or change in vision ENT ENT ED: Denies rhinorrhea or sore throat Cardiovascular Cardiovascular: Denies chest pain or palpitations Respiratory/Chest Respiratory/Chest: Denies cough or dyspnea Gastrointestinal Gastrointestinal: Reports nausea; Denies vomiting Genitourinary Genitourinary ED: Reports dysuria and urinary frequency; Denies hematuria Musculoskeletal Musculoskeletal: Reports back pain; Denies neck pain Integumentary Denies abscess or rash Neurologic Neurologic: Denies headache(s) or weakness Allergic/Immunologic Allergic/Immunologic ED: Denies mouth swelling or urticaria EXAM Physical Exam Const Vital Signs: 02/17/24 13:02 02/17/24 15:01 Temperature 96 F L Temperature Source Temporal Pulse Rate 95 64 Respiratory Rate 16 18 Blood Pressure 127/84 H 97/47 L Blood Pressure Mean 98 63 Pulse Ox 97 96 Oxygen Delivery Method Room Air Room Air Positive well nourished and well developed General Appearance ED: well developed and NAD HEENT Reports moist mucous membranes Neck supple and no JVD Resp normal respiratory effort and clear to auscultation bilaterally Cardio regular rate and regular rhythm GI non-tender and non-distended Palpation: soft Back/Spine no CVA tenderness Back/Spine Narrative: There is mild tenderness over the lower lumbar paraspinal muscles. There is no bony crepitance or step-off. There is no edema or ecchymosis. Neuro oriented x3, CN's II-XII intact bilaterally and no sensory deficits noted Sensorium / Orientation: alert Motor Exam: strength 5/5 throughout Psych mental status grossly normal MDM MDM MDM Narrative Medical decision making narrative: Differential diagnosis includes ureteral calculus, pyelonephritis, urinary tract infection, colitis, diverticulitis, and viral gastroenteritis. CBC will be obtained to assess for leukocytosis and anemia. Basic metabolic profile will be obtained to assess for electrolyte abnormality and renal function. Urinalysis will be obtained to assess for urinary tract infection and hematuria. CT scan of the abdomen and pelvis will be obtained to assess for ureteral calculus and pyelonephritis. Lab Data Attestation: I reviewed the patient's lab results. Lab results narrative: CBC was reviewed and was essentially within normal limits. Basic metabolic profile was reviewed. Creatinine was slightly elevated at 1.16, but was otherwise within normal limits. Urinalysis was reviewed. There is leukocyte esterase of 500. There are 10-25 white blood cells noted. Labs: Laboratory Results - last 24 hr 02/17/24 02/17/24 13:12 15:20 WBC 7.4 RBC 5.55 H Hgb 15.4 H Hct 46.9 MCV 84.5 MCH 27.7 MCHC 32.8 RDW Std Deviation 41.9 RDW Coeff of Daniel 13.5 Plt Count 256 MPV 11.2 Immature Gran % (Auto) 0.500 Neut % (Auto) 61.1 Lymph % (Auto) 31.7 [place] % (Auto) 5.0 Eos % (Auto) 1.2 Baso % (Auto) 0.5 Absolute Neuts (auto) 4.5 Absolute Lymphs (auto) 2.35 Nucleated RBC % 0 Sodium 140 Potassium 4.0 Chloride 108 H Carbon Dioxide 26.0 Anion Gap 5 BUN 13 Creatinine 1.16 H Estim Creat Clear Calc 60.16 Est GFR (MDRD) Af Amer 62 Est GFR (MDRD) Non-Af 52 L BUN/Creatinine Ratio 11.2 Glucose 132 H Calcium 8.9 Urine Color Yellow Urine Clarity Sl. Cloudy Urine pH 7.0 Ur Specific [place] 1.005 Urine Protein 15 H Urine Glucose (UA) Normal Urine Ketones Negative Urine Occult Blood 25 H Urine Nitrite Negative Urine Bilirubin Negative Urine Urobilinogen 1 H Ur Leukocyte Esterase 500 H Urine RBC 0-5 SEEN Urine WBC 10-25 SEEN Ur Squamous Epith Cells 0-5 SEEN Ur Transition Epith Cell 0-5 SEEN Urine Bacteria 0 SEEN Urine Mucus 0 SEEN Radiography Diagnostic Testing: Clinical Impression(s) from Imaging Studies Abdomen/Pelvis CT 02/17/24 13:30 IMPRESSION: Acute inflammatory process in the right lower quadrant involving the terminal ileum and cecum suggesting typhlitis or this may represent changes of inflammatory bowel disease. No perforation or abscess Inflammatory process does not involve the appendix is normal appendix is seen on coronal recon images 40-50 No suspicious solid organ abnormality No free intraperitoneal fluid, air, or suspicious adenopathy Electronically Signed: Sridhar Eller MD at 14:14 EST Reading Location ID and State: [address] [place] [address] , Service support , CT scan of the abdomen and pelvis was obtained. There is no acute inflammatory process in the right lower quadrant involving the terminal ileum and cecum. The appendix was visualized and is normal. This was interpreted by the radiologist was also independently reviewed by myself. Additional Tests and Interventions Additional Tests or Interventions: Urine culture was ordered. Treatment and Re-Evaluation :: Patient was given IV fluids, morphine, and Zofran. Patient was advised of her findings. Patient was given a dose of Cipro here. Patient was given a prescription for Cipro. Patient was instructed to drink plenty of fluids. Patient was instructed to follow-up with her primary care physician in 5 to 7 days. Patient understood and was agreeable with the plan. All questions were answered. Discharge Plan Triage Chief Complaint: Flank Pain ED Provider: Michael Sweeney Dx/Rx/DC Orders Clinical Impression: Urinary tract infection, Fibromyalgia, Anxiety Instructions: ED Cystitis Female Adult Prescriptions: New ciprofloxacin HCl 500 mg tablet 500 mg PO BID Qty: 6 0RF No Action mirtazapine 15 MG tablet 15 mg PO QHS PRN PRN (Reason: Sleep) Patient Comments: clonazepam [Klonopin] 0.5 MG tablet 0.5 mg PO BID sertraline 50 MG tablet 50 mg PO DAILY meloxicam 15 mg tablet 15 mg PO DAILY Qty: 10 0RF testosterone 1 % (50 mg/5 gram) gel in packet ondansetron 4 mg tablet,disintegrating 4 mg PO Q8H PRN (Reason: nausea and vomiting) 5 Days Qty: 15 0RF gabapentin 100 mg capsule 100 mg PO BID mirabegron [Myrbetriq] 50 mg tablet extended release 24 hr 50 mg PO DAILY Primary Care Provider: Silvio Lira Referrals: Silvio Lira MD [Primary Care Provider] - 5-7 Days Print Language: Guyanese Disposition Disposition: Home, Self Care
[2024-02-17] MEDS: Ondansetron 4 MG/2 ML Vial IV (13:38)
[2024-02-17] MEDS: 0.9% Normal Saline (1000mL) 1,000 ML 1000 ML IV (13:38)
[2024-02-17] MEDS: Morphine 4 MG/ML Syringe IV (13:38)
[2024-02-17 13:39] LABS: Absolute Lymphocyte Count 2.35 X10^3/uL (0.83-4.51); Absolute Neutrophil Count 4.5 X10^3/uL (2.0-7.7); Basophil# 0.04 X10^3/uL; Basophil% 0.5 % (0-1); Eosinophil# 0.09 X10^3/uL; Eosinophils% 1.2 % (0-5); Hematocrit 46.9 % (37-47); Hemoglobin 15.4 g/dL (12.0-15.0); Lymphocyte # 2.35 X10^3/ul (0.83-4.51); Lymphocyte % 31.7 % (19-41); Mean Corp Hgb Conc 32.8 g/dL (32-36); Mean Corpuscular Hgb 27.7 pg (27.0-32.0); Mean Corpuscular Volume 84.5 fL (81-99); Mean Platelet Vol. 11.2 fl (6.2-12.0); Monocyte# 0.37 X10^3/uL; NRBC Flagged by Analyzer 0 % (0-5); Neutrophil # 4.52 X10^3/uL (2.7-7.7); Neutrophil % 61.1 % (47-70); Platelet Count 256 K/mm3 (150-450); RBC Distribution Width CV 13.5 % (11.6-14.6); RBC Distribution Width SD 41.9 fl (35.1-43.9); Red Blood Count 5.55 M/mm3 (4.2-5.4); White Blood Count 7.4 K/mm3 (4.4-11.0)
[2024-02-17 13:51] LABS: Anion Gap 5 (5-15); BUN 13 mg/dL (7-18); BUN/Creat Ratio 11.2 RATIO (10-20); Calcium,Total 8.9 mg/dL (8.5-10.1); Chloride 108 mmol/L (98-107); Creatinine, Serum 1.16 mg/dL (0.55-1.02); EST Glomerular Filtration Rate 52 mL/min (>60); Est Glom Filt Rate - Afr Amer 62 mL/min (>60); Estimated Creatinine Clearance 60.16 ml/min; Glucose 132 mg/dL (74-106); Sodium Level 140 mmol/L (136-145)
[2024-02-17 15:01] VITALS: BP 97/47; PULSE 64; RESP 18; O2SAT 96
[2024-02-17 15:42] LABS: Bacteria 0 SEEN /hpf (None Seen); Mucous, Urine 0 SEEN /hpf (<or=2+)
[2024-02-17 15:46] LABS: Color, Urine Yellow (Yellow); Glucose, Dipstick Normal (Normal); Ketone-Dipstick Negative (Negative); Leukocyte Esterase-Dipstick 500 /ul (Negative); Nitrite-Dipstick Negative (Negative); Occult Blood-Urine 25 /ul (Negative); Protein-Dipstick 15 mg/dl (Negative); Specific Gravity, Urine 1.005 (1.002-1.030); Urine Bilirubin Dipstick Negative (Negative); Urine Clarity Sl. Cloudy (Clear); Urine Urobilinogen 1 mg/dl (Normal)
[2024-02-17 16:17] LABS: Red Blood Cells-Urine 0-5 SEEN /hpf (0-5); Squamous Epithelial Cells - UA 0-5 SEEN /hpf (5-10); Transitional Epithelial - Ur 0-5 SEEN /hpf (0-5); White Blood Cells 10-25 SEEN /hpf (0-5)
[2024-02-17 16:47] VITALS: BP 138/78; PULSE 77; RESP 18; TEMP 36.8; O2SAT 97
[2024-02-17] MEDS: Ciprofloxacin 500 MG Tablet PO (16:50)
== END 2024-02-17 16:52 | disposition home or self-care (01) ==
PROVIDERS: Emergency Provider Emergency Medicine; PCP Internal Medicine Adolescent Medicine; Referring Provider Emergency Medicine; Visit Provider Emergency Medicine
DX: R10.9 Unspecified abdominal pain (principal); M06.9 Rheumatoid arthritis, unspecified; N39.0 Urinary tract infection, site not specified; M79.7 Fibromyalgia; F17.210 Nicotine dependence, cigarettes, uncomplicated; F41.9 Anxiety disorder, unspecified; Z90.710 Acquired absence of both cervix and uterus; R11.0 Nausea; F43.10 Post-traumatic stress disorder, unspecified; Z79.899 Other long term (current) drug therapy; F17.290 Nicotine dependence, other tobacco product, uncomplicated
CPT/HCPCS: 74176; 80048; 81001; 85025; 96361; 96374; 96375; 99283; A4216; J2405

== ENCOUNTER 2025-01-23 14:24 | Emergency (ER) | payer MEDICAID, SELFPAY ==
[2025-01-23 14:25] VITALS: BP 110/81; PULSE 77; RESP 16; TEMP 37.1; O2SAT 97; BMI 28.5
--- OUTSIDE RECORDS SUMMARY | 2025-01-23 14:44 | XMS RPT_ITS | CCD ---
Author Organization [facility] Care Team Providers Care Presser Hand Name Role Phone Unavailable Primary Care Provider Unavailabl e Raj Ocampo MD Primary Care Provider Silvio Lira MD Unavailable Padmini Lindsay RN Unavailable Unavailable Rosa Howell Unavailable Ben HOG CUTTER, Mariama Unavailable Lucina PhD, Delmy Unavailable Raj Ocampo MD Primary Care Provider Silvio Lira MD Unavailable PATIENT, SELF Referring Unavailable PROVIDER, UNKNOWN Admitting Unavailable PROVIDER, UNKNOWN Attending Unavailable PROVIDER, UNKNOWN Admitting Unavailable PROVIDER, UNKNOWN Attending Unavailable PATIENT, SELF Referring Unavailable PROVIDER, UNKNOWN Admitting Unavailable PROVIDER, UNKNOWN Attending Unavailable PATIENT, SELF Referring Unavailable PROVIDER, UNKNOWN Attending Unavailable PROVIDER, UNKNOWN Admitting Unavailable PATIENT, SELF Referring Unavailable Silvio Lira MD Unavailable Raj Ocampo MD Primary Care Provider Silvio Lira MD Unavailable Padmini Lindsay RN Unavailable Unavailable Mckenna MARES Rosa Unavailable Ben HOG CUTTER, Mariama Unavailable Lucina PhD, Delmy Unavailable [phone] CLEMENT TORRES Attending Unavailable DAMARIS BLANK., DR. ANTHONY Primary Care Unavailab DILLON Fofana DO Attending Unavailable DAMARIS BLANK., DR. ANTHONY Primary Care Unavailab ritchie James ELECTRONIC PREPRESS TECHNICIAN, Miranda Unavailable Pankaj BLANK, Silvio Unavailable Pankaj BLANK, Silvio Unavailable Amadeo ELECTRONIC PREPRESS TECHNICIAN, Miranda Unavailable Pankaj BLANK, Silvio Unavailable Pankaj BLANK, Silvio Primary Care Provider Romana GRAYSON, Padmini Tim Unavailable Unavaila rosy James ELECTRONIC PREPRESS TECHNICIAN, Miranda Unavailable NO, PHYSICIAN Primary Care Unavailable AVILA ALBERTO Attending Unavailable JOSEFINA OATES Consulting Unavailable Unavailable Primary Care Provider UnavailABIMAEL Batista Admitting Unavail able ABIMAEL HIRSCH Unavailable ABIMAEL GRAJEDA Referring Unavailable KARLY BLANK~[id number], KARLY Cole Attending Unavailable KARLY BLANK~[id number], KARLY Cole Admitting Unavailable AA NO PCP, NO PCP Primary Care Unavailable Mariaelena Oates Attending Unavailable Mariaelena Oates Attending Unavailable Pankaj BLANK, Silvio Unavailable Pankaj BLANK, Silvio Primary Care Provider SILVIO LIRA Primary Care Unavailable YARITZA CARLSON Referring Unavailable Rosa Howell Unavailable Ben VIDALESW, Mariama Unavailable Lucina PhD, Delmy Unavailable [phone] Serenity Arreola MD, Esvin Unavailable iRcky BLANK, Levon Unavailable Veronica Clifford DO Unavailable Charu CISNEROS, Everardo Unavailable Ralph Zambrano MD, Tono Unavailable Cesar BLANK, Sofia Unavailable Nelson Lopez MD Unavailable Juana BLANK, Jose Unavailable Bethanie BLANK, Jennifer Unavailable Senia BLANK, Hearn Unavailable Stefan BLANK, Zineloan Unavailable [phone] Layo BLANK, Slick Unavailable Janett BLANK, Serenity Her Unavailable Nori BLANK, Marcela Unavailable [phone] Rammiqueli DO, Noor Unavailable Jose D BLANK, Anahi Unavailable Lea BLANK, Moni Unavailable Gaurav BLANK, Ellen Unavailable Oliverio HOLDER, Joe Unavailable All BLANK, Timothy Cartwright Unavailable Juana BLANK, Basmaria t Unavailable Schwmonique, Michael Attending Unavailable Schwiger, Michael Referring Unavailable Ng, Silvio Primary Care Unavailable CAROL, SAYE Primary Care Unavailable GodAmie littlejohn Attending Unavailable Startzman, [place] Primary Care Unavailable Schwiger, Michael Attending Unavailable NG, SILVIO Primary Care Unavailable CROFTON, EVERARDO Attending Unavailable NG, SILVIO Primary Care Unavailable CROFTON, EVERARDO Attending Unavailable NG, SILVIO Attending Unavailable NG, SILVIO Primary Care Unavailable NG, SILVIO Attending Unavailable NG, SILVIO Primary Care Unavailable NG, SILVIO Primary Care Unavailable NG, SILVIO Referring Unavailable NG, SILVIO Primary Care Unavailable Allergies Allergy Classification Reported Allergen(s) Allergy Type Date of Onset Reaction(s) Facility (20 sources) cyclobenzaprine; Translations: [CYCLOBENZAPRINE] Drug Allergy 08-14-19 12 Rash, Other: See Comments [place], [place] (20 sources) Escitalopram; Translations: [ESCITALOPRAM OXALATE] Drug Allergy 12-29-19 06 Other [place], [place] (20 sources) gabapentin; Translations: [GABAPENTIN] Drug Allergy 08-14-19 12 Rash, Other: See Comments [place] (20 sources) HYDROmorphone; Translations: [HYDROMORPHONE HCL] Drug Allergy 02-18-19 08 Other [place] (20 sources) hydrOXYzine; Translations: [HYDROXYZINE HCL] Drug Allergy 12-29-19 06 Other [place] (20 sources) Meperidine; Translations: [MEPERIDINE] Drug Allergy 12-29-19 Other: See Comments [place] (20 sources) Naproxen; Translations: [NAPROXEN] Drug Allergy 08-14-19 Rash, Other: See Comments [place] (20 sources) PARoxetine; Translations: [PAROXETINE] Drug Allergy 02-18-19 Other: See Comments [place] (3 sources) QUEtiapine Drug Allergy 10-26-19 [place] (20 sources) Sulfamethoxazole / Trimethoprim; Translations: [SULFAMETHOXAZOLE-T RIMETHOPRIM] Drug Allergy 02-18-19 08 [place] (20 sources) venlafaxine; Translations: [VENLAFAXINE HCL] Drug Allergy 12-29-19 Other [place] (20 sources) buPROPion; Translations: [BUPROPION] Drug Allergy 08-03-19 [facility] Work Phone: (20 sources) cyclobenzaprine; Translations: [CYCLOBENZAPRINE HCL] Drug Allergy 08-14-19 [facility] Work Phone: (20 sources) Lactose; Translations: [LACTOSE] Drug Allergy 12-29-19 Unknown [facility] (20 sources) Meperidine; Translations: [MEPERIDINE (PF)] Drug Allergy 12-29-19 [facility] Work Phone: (20 sources) QUEtiapine; Translations: [QUETIAPINE FUMARATE] Drug Allergy 08-14-19 [facility] Work Phone: (20 sources) tomato allergenic extract; Translations: [TOMATO] Drug Allergy 06-27-19 16 GI Upset [facility] (20 sources) Bees; Translations: [BEES] Propensity to adverse reactions 02-18-19 08 [facility] Work Phone: (20 sources) carbatral [Other] Propensity to adverse reactions 12-29-19 [facility] Work Phone: (20 sources) noraflex [Other] Propensity to adverse reactions 12-29-19 [facility] Work Phone: (12 sources) hydrOXYzine; Translations: [hydroxyzine pamoate] Drug Allergy 06-14-19 Other [facility] (12 sources) Meperidine; Translations: [meperidine HCl] Drug Allergy 06-14-19 Other [facility] (12 sources) PARoxetine; Translations: [paroxetine mesylate] Drug Allergy 06-14-19 Other [facility] Decompressed. Spleen: No significant finding. Pancreas: No significant finding. Adrenal glands: No significant finding. Kidneys, ureters and bladder: No renal/urinary tract calculi. No hydronephrosis. Bladder is unremarkable. Bowel: No evidence of bowel obstruction. Prominent fluid distension of the appendix measuring up to 1.5 cm, for example series 602 image 27 through 44. Mild periappendiceal stranding. Peritoneum/retroperiton eum: As above. Lymph nodes: No significant finding. Vessels: Retroaortic left renal vein. Body wall: No significant finding. Reproductive: No significant finding. Bones: No significant finding. IMPRESSION: Prominent distension of the appendix measuring up to 1.5 cm with mild periappendiceal stranding, likely acute appendicitis. No renal/urinary tract calculi. Workstation ID: [id number] Dictated by: SULY SAMUEL on SatFeb 05, 2023 10:01:10 PM EST Transcribed by: SULY SAMUEL on SatFeb 05, 2023 10:01:10 PM EST Finalized by: SULY SAMUEL on SatFeb 05, 2023 10:01:10 PM EST Normal [facility] Comment on above: Order Comment: Injur y/Trauma or Illness?:Illness/Other How long have you had these symptoms (acute/chronic)?:Acute Reason for exam?:RIGHT FLANK PAIN STARTED YESTERDAY. DENIES FEVER OR DYSURIA Type of Exam?:Initial Additional signs and symptoms?:. CBC W Auto Differential pane l (Bld)on 11-21-2022 Basophils (Bld) [#/Vol] 0.04 10*3/uL <0.11 k/uL [facility] Basophils/100 WBC (Bld) 0.7 % C [facility] Differential cell count method Nom (Bld) Auto [facility] Eosinophils (Bld) [#/Vol] 0.07 10*3/uL <0.46 k/uL [facility] Eosinophils/100 WBC (Bld) 1.2 % [facility] Erythrocyte distribution width (RBC) [Ratio] 13.9 % 11.5 - 15.0 % [facility] Hematocrit (Bld) [Volume fraction] 46.3 % 39.0 - 51.0 % [facility] Hemoglobin (Bld) [Mass/Vol] 14.8 g/dL 13.0 - 17.0 g/dL [facility] Immature granulocytes (Bld) [#/Vol] <0.10 k/uL [facility] Immature granulocytes/100 WBC (Bld) 0.2 % [facility] Lymphocytes (Bld) [#/Vol] 2.06 10*3/uL 1.00 - 4.00 k/uL [facility] Lymphocytes/100 WBC (Bld) 36.5 % [facility] MCH (RBC) [Entitic mass] 27.8 pg 26.0 - 34.0 pg [facility] MCHC (RBC) [Mass/Vol] 32.0 g/dL 30.5 - 36.0 g/dL [facility] MCV (RBC) [Entitic vol] 86.9 fL 80.0 - 100.0 fL [facility] Monocytes (Bld) [#/Vol] 0.36 10*3/uL <0.87 k/uL [facility] Monocytes/100 WBC (Bld) 6.4 % C [facility] Neutrophils (Bld) [#/Vol] 3.11 10*3/uL 1.45 - 7.50 k/uL [facility] Neutrophils/100 WBC (Bld) 55.0 % [facility] Nucleated RBC (Bld) [#/Vol] <0.01 k/uL [facility] Nucleated RBC/100 WBC (Bld) [Ratio] 0.0 /100 WBC [facility] Platelet mean volume (Bld) [Entitic vol] 11.3 fL 9.0 - 12.7 fL [facility] Platelets (Bld) [#/Vol] 214 10*3/uL 150 - 400 k/uL [facility] RBC (Bld) [#/Vol] 5.33 10*6/uL 4.20 - 6.0 0 m/uL [facility] WBC (Bld) [#/Vol] 5.65 10*3/uL 3.70 - 11.00 k/uL [facility] CBC W Auto Differential pane l (Bld)on 08-29-2022 Basophils (Bld) [#/Vol] 0.03 10*3/uL <0.11 k/uL [facility] Basophils/100 WBC (Bld) 0.5 % C [facility] Differential cell count method Nom (Bld) Auto [facility] Eosinophils (Bld) [#/Vol] 0.10 10*3/uL <0.46 k/uL [facility] Eosinophils/100 WBC (Bld) 1.5 % [facility] Erythrocyte distribution width (RBC) [Ratio] 13.5 % 11.5 - 15.0 % [facility] Hematocrit (Bld) [Volume fraction] 46.6 % 39.0 - 51.0 % [facility] Hemoglobin (Bld) [Mass/Vol] 15.1 g/dL 13.0 - 17.0 g/dL [facility] Immature granulocytes (Bld) [#/Vol] <0.10 k/uL [facility] Immature granulocytes/100 WBC (Bld) 0.2 % [facility] Lymphocytes (Bld) [#/Vol] 2.38 10*3/uL 1.00 - 4.00 k/uL [facility] Lymphocytes/100 WBC (Bld) 36.4 % [facility] MCH (RBC) [Entitic mass] 28.1 pg 26.0 - 34.0 pg [facility] MCHC (RBC) [Mass/Vol] 32.4 g/dL 30.5 - 36.0 g/dL [facility] MCV (RBC) [Entitic vol] 86.8 fL 80.0 - 100.0 fL [facility] Monocytes (Bld) [#/Vol] 0.38 10*3/uL <0.87 k/uL [facility] Monocytes/100 WBC (Bld) 5.8 % C [facility] Neutrophils (Bld) [#/Vol] 3.63 10*3/uL 1.45 - 7.50 k/uL [facility] Neutrophils/100 WBC (Bld) 55.6 % [facility] Nucleated RBC (Bld) [#/Vol] <0.01 k/uL [facility] Nucleated RBC/100 WBC (Bld) [Ratio] 0.0 /100 WBC [facility] Platelet mean volume (Bld) [Entitic vol] 11.3 fL 9.0 - 12.7 fL [facility] Platelets (Bld) [#/Vol] 198 10*3/uL 150 - 400 k/uL [facility] RBC (Bld) [#/Vol] 5.37 10*6/uL 4.20 - 6.0 0 m/uL [facility] WBC (Bld) [#/Vol] 6.53 10*3/uL 3.70 - 11.00 k/uL [facility] ESTRADIOL-17B BLDon 08-30-19 23 E2 [Mass/Vol] [facility] TESTOSTERONE TOTALon 023 Testosterone [Mass/Vol] 193 ng/dL C [facility] Absolute lymphocyte countOrd ered By: Dr. Zaidi on 07-11-2022 Lymphocytes Auto (Unsp spec) [#/Vol] 0.96 10*3/uL 0.83-4.51 [facility] Basophil percentageOrdered B y: Dr. Zaidi on 07-11-2022 Basophils/100 WBC (Bld) 0.3 % 0-1 [facility] Bilirubin [Mass/Vol] 0.40 mg/dL 0.20-1.00 [facility] Comment on above: For patients on eltr ombopag therapy, use of Dimension Helm TBIL is not recommended. Chloride [Moles/Vol] 109 mmol/L 98-107 [facility] Eosinophils/100 WBC (Bld) 0.1 % 0-5 [facility] Glucose [Mass/Vol] 122 mg/dL 74-106 [facility] Comment on above: Fasting Glucose resu lt from 100 to 125 mg/dL suggests IMPAIRED HOMEOSTASIS per A.D.A. criteria. Neutrophils (Bld) [#/Vol] 9.2 10*3/uL 2.0-7.7 [facility] Neutrophils/100 WBC (Bld) 87.6 % 47-70 [facility] Potassium [Moles/Vol] 4.6 mmol/L 3.5-5.1 [facility] Protein [Mass/Vol] 7.2 g/dL 6.4-8.2 [facility] Sodium [Moles/Vol] 140 mmol/L 136-145 [facility] WBC (Bld) [#/Vol] 10.5 10*3/uL 4.4-11.0 [facility] Blood erythrocytes count (nu mber/volume)Ordered By: Dr. Zaidi on 07-11-2022 RBC (Bld) [#/Vol] 5.23 10*6/uL 4.2-5.4 [facility] Blood hemoglobin measurement (mass/volume)Ordered By: Dr. Zaidi on 07-11-2022 Hemoglobin (Bld) [Mass/Vol] 14.8 g/dL 12.0-15.0 [facility] Blood lymphocytes/100 leukoc ytesOrdered By: Dr. Zaidi on 07-11-2022 Lymphocytes/100 WBC (Bld) 9.1 % 19-41 [facility] Blood monocytes/100 leukocyt esOrdered By: Dr. Zaidi on 07-11-2022 Monocytes/100 WBC (Bld) 2.7 % 0-10 [facility] Blood platelet mean volumeOr dered By: Dr. Zaidi on 07-11-2022 Platelet mean volume (Bld) [Entitic vol] 10.3 fL 6.2-12.0 [facility] Determination of erythrocyte mean corpuscular volume (MCV)Ordered By: Dr. Zaidi on 07-11-2022 MCV (RBC) [Entitic vol] 86.2 fL 81-99 [facility] Hematocrit Auto (Bld) [Volum e fraction]Ordered By: Dr. Zaidi on 07-11-2022 Hematocrit (Bld) [Volume fraction] 45.1 % 37-47 [facility] Laboratory - Chemistry and C hemistry - challengeOrdered By: Dr. Zaidi on 07-11-2022 ALP [Catalytic activity/Vol] 71 U/L 45-117 [facility] ALT [Catalytic activity/Vol] 23 U/L 13-56 [facility] CO2 [Moles/Vol] 25.0 mmol/L 21.0-32.0 [facility] Globulin (S) [Mass/Vol] 3.0 g/dL 2.2-4.2 [facility] Lipase [Catalytic activity/Vol] 24 U/L 13-75 [facility] Comment on above: Please note:LIPASE r evised reference range effective 22. New Lipase methodology. Expected to produce lower values than the previous assay method. NEW Reference Range: 13 - 75 U/L Urea nitrogen/Creatinine [Mass ratio] 18.1 mg/mg 10-20 [facility] - Hematology and Cell countsOrdered By: Dr. Zaidi on 07-11-2022 Erythrocyte distribution width (RBC) [Entitic vol] 43.0 fL 35.1-43.9 [facility] Erythrocyte distribution width (RBC) [Ratio] 13.5 % 11.6-14.6 [facility] Immature granulocytes/100 WBC (Bld) 0.200 % 0.0-0.9 [facility] Comment on above: IG% - Immature Granu locytes (promyelocytes, myelocytes and metamyelocytes) > 1% indicates that a LEFT SHIFT is Present. MCH (RBC) [Entitic mass] 28.3 pg 27.0-32.0 [facility] Nucleated RBC/100 WBC (Bld) [Ratio] 0 % 0-5 [facility] MCHC Auto (RBC) [Mass/Vol]Or dered By: Dr. Zaidi on 07-11-2022 MCHC (RBC) [Mass/Vol] 32.8 g/dL 32-36 [facility] No Panel InformationOrdered By: Dr. Zaidi on 07-11-2022 Estimated Creatinine Clearance Calc 60.91 ml/min [facility] Estimated GFR (MDRD) Amer 75 mL/min >60 [facility] Comment on above: GFR Calc Estimated GFR (MDRD) Non-Af Amer 62 mL/min >60 [facility] Comment on above: Non- GFR Calc Platelets bldOrdered By: Dr. Zaidi on 07-11-2022 Platelets (Bld) [#/Vol] 213 10*3/uL 150-450 [facility] Serum or plasma albumin karis urement (mass/volume)Ordered By: Dr. Zaidi on 07-11-2022 Albumin [Mass/Vol] 4.2 g/dL 3.2-5.0 [facility] Serum or plasma albumin/glob ulin mass ratioOrdered By: Dr. Zaidi on 07-11-2022 Albumin/Globulin [Mass ratio] 1.4 {ratio} 0.9-2.4 [facility] Serum or plasma calcium karis urement (mass/volume)Ordered By: Dr. Zaidi on 07-11-2022 Calcium [Mass/Vol] 9.4 mg/dL 8.5-10.1 [facility] Serum or plasma creatinine m easurement (mass/volume)Ordered By: Dr. Zaidi on 07-11-2022 Creatinine [Mass/Vol] 1.00 mg/dL 0.55-1.02 [facility] Comment on above: The validity of the calculated GFR & GFRAA in patients over 70 years has not been determined. Clinical correlation is essential. Serum or plasma urea nitroge n measurement (mass/volume)Ordered By: Dr. Zaidi on 07-11-2022 Urea nitrogen [Mass/Vol] 18 mg/dL 7-18 [facility] Thin prep Papanicolaou smear with manual screeningOrdered By: Dr. Zaidi on 07-11-2022 Thin prep Papanicolaou smear with manual screening 20 U/L 15-37 [facility] Thin prep Papanicolaou smear with manual screening 6 5-15 [facility] Basophil percentageOrdered B y: Dr. Brandt on 04-20-2022 Chloride [Moles/Vol] 109 mmol/L 98-107 [facility] Glucose [Mass/Vol] 108 mg/dL 74-106 [facility] Comment on above: Fasting Glucose resu lt from 100 to 125 mg/dL suggests IMPAIRED HOMEOSTASIS per A.D.A. criteria. Potassium [Moles/Vol] 4.5 mmol/L 3.5-5.1 [facility] Comment on above: Slight Hemolysis, Re sult may be falsely increased. Sodium [Moles/Vol] 143 mmol/L 136-145 [facility] Laboratory - Chemistry and C hemistry - challengeOrdered By: Dr. Brandt on 04-20-2022 CO2 [Moles/Vol] 29.0 mmol/L 21.0-32.0 [facility] Urea nitrogen/Creatinine [Mass ratio] 16.7 mg/mg - [facility] No Panel InformationOrdered By: Dr. Brandt on 04-20-2022 Estimated Creatinine Clearance Calc 67.67 ml/min [facility] Estimated GFR (MDRD) Amer 85 mL/min >60 [facility] Comment on above: GFR Calc Estimated GFR (MDRD) Non-Af Amer 70 mL/min >60 [facility] Comment on above: Non- GFR Calc Serum or plasma calcium karis urement (mass/volume)Ordered By: Dr. Brandt on 04-20-2022 Calcium [Mass/Vol] 9.0 mg/dL 8.5-10.1 [facility] Serum or plasma creatinine m easurement (mass/volume)Ordered By: Dr. Brandt on 04-20-2022 Creatinine [Mass/Vol] 0.90 mg/dL 0.55-1.02 [facility] Comment on above: The validity of the calculated GFR & GFRAA in patients over 70 years has not been determined. Clinical correlation is essential. Serum or plasma urea nitroge n measurement (mass/volume)Ordered By: Dr. Brandt on 04-20-2022 Urea nitrogen [Mass/Vol] 15 mg/dL 7-18 [facility] Thin prep Papanicolaou smear with manual screeningOrdered By: Dr. Brandt on 04-20-2022 Thin prep Papanicolaou smear with manual screening 5 5-15 [facility] .Auto Diffon 01-30-2022 Basophil, Absolute 0.0 10 3/mcL Normal 0.0-0.2 [facility] ([place]) Comment on above: Performed By: #### G FR, CMP, LIP #### [id number] [place], [place] [address] Basophils/100 WBC (Bld) 0.3 % Normal 0.0-2.5 [facility] ([place]) Comment on above: Performed By: #### G FR, CMP, LIP #### [address] [place], [place] [address] Eosinophil, Absolute 0.0 10 3/mcL Normal 0.0-0.4 [facility] ([place]) Comment on above: Performed By: #### G FR, CMP, LIP #### [address] [address] Eosinophils/100 WBC (Bld) 0.0 % Normal 0.0-7.0 [facility] ([place]) Comment on above: Performed By: #### G FR, CMP, LIP #### [address] [address] Lymphocyte, Absolute 1.0 10 3/mcL Normal 0.8-3.9 [facility] ([place]) Comment on above: Performed By: #### G FR, CMP, LIP #### [address] [address] Lymphocytes/100 WBC (Bld) 9.1 % Low 10.0-50.0 [facility] ([place]) Comment on above: Performed By: #### G FR, CMP, LIP #### [address] [address] Monocyte, Absolute 0.6 10 3/mcL Normal 0.2-1.0 [facility] ([place]) Comment on above: Performed By: #### G FR, CMP, LIP #### [address] [address] Monocytes/100 WBC (Bld) 5.4 % Normal 1.7-13.0 [facility] ([place]) Comment on above: Performed By: #### G FR, CMP, LIP #### [address] [address] Neutrophils/100 WBC (Bld) 85.2 % High 37.0-80.0 [facility] ([place]) Comment on above: Performed By: #### G FR, CMP, LIP #### [address] [address] .GFRon 01-30-2022 GFR Non- 66 ml/min/1.73sqm Normal [facility] ([place]) Comment on above: Result Comment: GFR Population mean for , Non- Americans Ages 20-29 = 116 mL/min/1.73 sq.m. Ages 30-39 = 107 mL/min/1.73 sq.m. Ages 40-49 = 99 mL/min/1.73 sq.m. Ages 50-59 = 93 mL/min/1.73 sq.m. Ages 60-69 = 85 mL/min/1.73 sq.m. Ages 70+ = 75 mL/min/1.73 sq.m. Chronic Kidney Disease: Less than 60 mL/min/1.73 square meters End Stage Renal Disease: Less than 15 mL/min/1.73 square meters Performed By: #### U NICOLE UA #### [address] [address] GFR 80 ml/min/1.73sqm Normal [facility] ([place]) Comment on above: Result Comment: GFR Population mean for , Non- Americans Ages 20-29 = 116 mL/min/1.73 sq.m. Ages 30-39 = 107 mL/min/1.73 sq.m. Ages 40-49 = 99 mL/min/1.73 sq.m. Ages 50-59 = 93 mL/min/1.73 sq.m. Ages 60-69 = 85 mL/min/1.73 sq.m. Ages 70+ = 75 mL/min/1.73 sq.m. Chronic Kidney Disease: Less than 60 mL/min/1.73 square meters End Stage Renal Disease: Less than 15 mL/min/1.73 square meters Performed By: #### U NICOLE UA #### [address] [address] .MDWon 01-30-2022 Monocyte Distribution Width 17.10 Normal 0.00-20.00 [facility] ([place]) Comment on above: Result Comment: For ED adult patients suspected of sepsis, MDW<=20.0 does not rule out sepsis or risk of sepsis Performed By: #### G FR, CMP, LIP #### [address] [address] .NEUABSon 01-30-2022 Neutrophil, Absolute 9.3 10 3/mcL High 2.9-6.2 [facility] ([place]) Comment on above: Performed By: #### G FR, CMP, LIP #### [address] [address] .Urinalysis Microscopic (AO) on 01-30-2022 UA RBC 5-10 Abnormal None Seen [facility] ([place]) Comment on above: Performed By: #### U AMICAO, UA #### [address] [address] UA Squam Epithelial 0-5 Abnormal None Seen [facility] ([place]) Comment on above: Performed By: #### U AMICAO, UA #### [address] [address] UA WBC 0-5 Abnormal None Seen [facility] ([place]) Comment on above: Performed By: #### U AMICAO, UA #### [address] CBCon 01-30-2022 Erythrocyte distribution width (RBC) [Ratio] 13.8 % Normal 11.5-14.5 [facility] ([place]) Comment on above: Performed By: #### G FR, CMP, LIP #### [place] [address] Hematocrit (Bld) [Volume fraction] 41.4 % Normal 37.0-47.0 [facility] ([place]) Comment on above: Performed By: #### G FR, CMP, LIP #### [address] [place] [address] Hgb 14.1 G/dL Normal 12.0-16.0 [facility] ([place]) Comment on above: Performed By: #### G FR, CMP, LIP #### [address] MCH (RBC) [Entitic mass] 28.5 pg Normal 27.0-31.2 [facility] ([place]) Comment on above: Performed By: #### G FR, CMP, LIP #### [place] [address] MCHC 34.1 G/dL Normal 33.0-37.0 [facility] ([place]) Comment on above: Performed By: #### G FR, CMP, LIP #### [address] [address] MCV (RBC) [Entitic vol] 83.4 fL Normal 80.0-94.0 [facility] ([place]) Comment on above: Performed By: #### G FR, CMP, LIP #### [address] [address] Platelet 176 10 3/mcL Normal 130-400 [facility] ([place]) Comment on above: Performed By: #### G FR, CMP, LIP #### [address] [address] Platelet mean volume (Bld) [Entitic vol] 9.0 fL Normal 7.4-10.4 [facility] ([place]) Comment on above: Performed By: #### G FR, CMP, LIP #### [address] [address] RBC 4.97 10 6/mcL Normal 4.20-5.40 [facility] ([place]) Comment on above: Performed By: #### G FR, CMP, LIP #### [address] [address] WBC 10.9 10 3/mcL High 4.6-10.8 [facility] ([place]) Comment on above: Performed By: #### G FR, CMP, LIP #### [address] [address] CMPon 01-30-2022 Albumin Level 4.1 G/dL Normal 3.5-5.0 [facility] ([place]) Comment on above: Performed By: #### U NICOLE UA #### [address] [address] Albumin/Globulin [Mass ratio] 1.4 {ratio} Normal 1.1-2.5 [facility] ([place]) Comment on above: Performed By: #### U NICOLE UA #### [address] [address] ALP [Catalytic activity/Vol] 93 U/L Normal 40-135 [facility] ([place]) Comment on above: Performed By: #### U AMICAO UA #### [address] [address] ALT [Catalytic activity/Vol] 33 U/L Normal 14-59 [facility] ([place]) Comment on above: Performed By: #### U AMICAO UA #### [address] [address] AST [Catalytic activity/Vol] 18 U/L Normal 10-40 [facility] ([place]) Comment on above: Performed By: #### U AMICAO UA #### [address] [address] Bili Total 0.5 mg/dL Normal 0.2-1.0 [facility] ([place]) Comment on above: Result Comment: Use of this assay is not recommended for patients undergoing treatment with eltrombopag due to the potential for falsely elevated results. Performed By: #### U AMICAO UA #### [address] [address] BUN/Creatinine Ratio 19 ratio Normal 7-27 [facility] ([place]) Comment on above: Performed By: #### U AMICAO UA #### [address] [address] Calcium [Mass/Vol] 9.0 mg/dL Normal 8.4-10.2 [facility] ([place]) Comment on above: Performed By: #### U AMICAO UA #### [address] [address] Chloride [Moles/Vol] 104 mmol/L Normal 98-107 [facility] ([place]) Comment on above: Performed By: #### U AMICAO, UA #### [address] [address] CO2 [Moles/Vol] 27 mmol/L Normal 22-29 [facility] ([place]) Comment on above: Performed By: #### U AMICAO, UA #### [address] [address] Creatinine [Mass/Vol] 0.89 mg/dL Normal 0.55-1.02 [facility] ([place]) Comment on above: Performed By: #### U AMICAO, UA #### [address] [address] Electrolyte Balance 11.0 mEq/L Normal 4.0-15.0 [facility] ([place]) Comment on above: Performed By: #### U AMICAO, UA #### [address] [address] Globulin 3.0 G/dL Normal [facility] ([place]) Comment on above: Performed By: #### Rosalba MOREJONCACy, UA #### [address] [address] Glucose [Mass/Vol] 108 mg/dL High 70-105 [facility] ([place]) Comment on above: Performed By: #### U AMICACy, UA #### [address] [address] Potassium [Moles/Vol] 4.0 mmol/L Normal 3.5-5.1 [facility] ([place]) Comment on above: Performed By: #### U AMICAO, UA #### [address] [address] Sodium [Moles/Vol] 142 mmol/L Normal 136-145 [facility] ([place]) Comment on above: Performed By: #### U AMICAO, UA #### [address] [address] Total Protein 7.1 G/dL Normal 6.4-8.2 [facility] ([place]) Comment on above: Performed By: #### U AMICAO, UA #### [address] [address] Urea nitrogen [Mass/Vol] 17 mg/dL Normal 7-18 [facility] ([place]) Comment on above: Performed By: #### U AMICAO, UA #### [address] [place], [place] [address] [id number] 01-30-2022 SARS-CoV-2 (COVID-19) RNA NEWTON+probe Ql (Unsp spec) Negative Normal Negative [facility] ([place]) Comment on above: Performed By: #### F OFE COVD19 #### [address] [place], [place] [address] SARS-CoV-2 (COVID-19) RNA NEWTON+probe Ql (Unsp spec) Normal [facility] ([place]) Comment on above: Result Comment: Nega tive results do not preclude SARS-CoV-2 infection and should not be used as the sole basis for patient management decisions. Negative results must be combined with clinical observations, patient history, and epidemiological information. There is a risk of false negative values resulting from improperly collected, transported, or handled specimens. There is a risk of false negative values due to the presence of sequence variants in the pathogen targets of the assay, procedural errors, amplification inhibitors in specimens, or inadequate numbers of organisms for amplification. ANDRIY SARS-CoV-2 Assay is a Real-Time reverse-transcriptase polymerase chain reaction (RT-PCR) based qualitative in vitro diagnostic test intended for the qualitative detection of nucleic acid from the SARS-CoV-2 in nasopharyngeal swab specimens collected from individuals suspected of COVID-19 by their healthcare provider. Testing is limited to laboratories certified under the Clinical Laboratory Improvement Amendments of 1988 (CLIA), 42 U.S.C. ?263a, to perform moderate and high complexity tests. COVID-19 Int Performed By: #### F OFE COVD19 #### [id number] [place], [place] [address] FLURSVon 01-30-2022 Flu A PCR (AO) Negative Normal Negative [facility] ([place]) Comment on above: Result Comment: Posi tive Results: Positive Flu A/B or RSV for by PCR. Positive test results do not rule out bacterial infection or co-infection with other pathogens. Test results should be interpreted in conjunction with other laboratory and clinical data. Negative Results: Negative for by PCR. Negative test results do not preclude influenza virus or RSV infection and should not be used as the sole basis for diagnosis, treatment, or other management decisions. There is a risk of false negative RSV results when at low concentration and in the presence of co-infection with high concentration of influenza A. Invalid Results: An Invalid result (INV) was obtained. The test was repeated with similar results. REPEAT COLLECTION AND TESTING IS RECOMMENDED. The Andriy Flu A/B & RSV Assay is a real-time polymerase chain reaction (PCR) based qualitative in vitro diagnostic test for the direct detection and differentiation of influenza A virus, influenza B virus, and respiratory syncytial virus (RSV) nucleic acid in nasopharyngeal swab (BUTCHER MEAT) specimens from patients with signs and symptoms of respiratory infection in conjunction with clinical and laboratory findings. The test is intended for use as an aid in the differential diagnosis of influenza A virus, influenza B virus, and RSV in humans and is not intended to detect influenza C. Performed By: #### F OFE COVD19 #### [address] [address] Flu B PCR (AO) Negative Normal Negative [facility] ([place]) Comment on above: Result Comment: Posi tive Results: Positive Flu A/B or RSV for by PCR. Positive test results do not rule out bacterial infection or co-infection with other pathogens. Test results should be interpreted in conjunction with other laboratory and clinical data. Negative Results: Negative for by PCR. Negative test results do not preclude influenza virus or RSV infection and should not be used as the sole basis for diagnosis, treatment, or other management decisions. There is a risk of false negative RSV results when at low concentration and in the presence of co-infection with high concentration of influenza A. Invalid Results: An Invalid result (INV) was obtained. The test was repeated with similar results. REPEAT COLLECTION AND TESTING IS RECOMMENDED. The Andriy Flu A/B & RSV Assay is a real-time polymerase chain reaction (PCR) based qualitative in vitro diagnostic test for the direct detection and differentiation of influenza A virus, influenza B virus, and respiratory syncytial virus (RSV) nucleic acid in nasopharyngeal swab (BUTCHER MEAT) specimens from patients with signs and symptoms of respiratory infection in conjunction with clinical and laboratory findings. The test is intended for use as an aid in the differential diagnosis of influenza A virus, influenza B virus, and RSV in humans and is not intended to detect influenza C. Performed By: #### F OFE, COVD19 #### [address] [address] RSV PCR (AO) Negative Normal Negative [facility] ([place]) Comment on above: Result Comment: Posi tive Results: Positive Flu A/B or RSV for by PCR. Positive test results do not rule out bacterial infection or co-infection with other pathogens. Test results should be interpreted in conjunction with other laboratory and clinical data. Negative Results: Negative for by PCR. Negative test results do not preclude influenza virus or RSV infection and should not be used as the sole basis for diagnosis, treatment, or other management decisions. There is a risk of false negative RSV results when at low concentration and in the presence of co-infection with high concentration of influenza A. Invalid Results: An Invalid result (INV) was obtained. The test was repeated with similar results. REPEAT COLLECTION AND TESTING IS RECOMMENDED. The Histogen Flu A/B & RSV Assay is a real-time polymerase chain reaction (PCR) based qualitative in vitro diagnostic test for the direct detection and differentiation of influenza A virus, influenza B virus, and respiratory syncytial virus (RSV) nucleic acid in nasopharyngeal swab (BUTCHER MEAT) specimens from patients with signs and symptoms of respiratory infection in conjunction with clinical and laboratory findings. The test is intended for use as an aid in the differential diagnosis of influenza A virus, influenza B virus, and RSV in humans and is not intended to detect influenza C. Performed By: #### F LURSV, COVD19 #### [address] [address] LIPon 01-30-2022 Lipase Level 12 U/L Low 16-77 [facility] ([place]) Comment on above: Performed By: #### G FR, CMP, LIP #### [address] [address] UAon 01-30-2022 Color (U) Yellow Normal [facility] ([place]) Comment on above: Performed By: #### U AL RIVERA #### [address] [address] Glucose (U) [Mass/Vol] Negative Normal Negative [facility] ([place]) Comment on above: Performed By: #### U AL RIVERA #### [address] [address] Ketones Ql (U) >=160 Abnormal Negative [facility] ([place]) Comment on above: Performed By: #### U AMICAO, UA #### [address] [address] UA Appear Slightly Cloudy Abnormal Clear [facility] ([place]) Comment on above: Performed By: #### U AMICAO, UA #### [address] [address] UA Bili Moderate Abnormal Negative [facility] ([place]) Comment on above: Performed By: #### U AMICAO, UA #### [place] [address] UA Blood Moderate Abnormal Negative [facility] ([place]) Comment on above: Performed By: #### U AMICAO, UA #### [address] [address] UA Leuk Est Negative Normal Negative [facility] ([place]) Comment on above: Performed By: #### U AMICAO, UA #### [address] [place] [address] UA Nitrite Negative Normal Negative [facility] ([place]) Comment on above: Performed By: #### U AMICAO, UA #### [address] [address] UA pH 5.5 Normal 5.0 - 8.0 [facility] ([place]) Comment on above: Performed By: #### U AMICAO, UA #### [address] [address] UA Protein Trace Normal Negative [facility] ([place]) Comment on above: Performed By: #### U AMICAO, UA #### [address] [place] [address] UA Spec Grav >=1.030 Abnormal 1.015-1.025 [facility] ([place]) Comment on above: Performed By: #### U AMICAO, UA #### [place] [address] UA Specimen Type Clean Catch Normal [facility] ([place]) Comment on above: Performed By: #### U AL RIVERA #### [address] [place], [place] [address] UA Urobilinogen 2.0 E.U./dL Abnormal 0.2-1.0 [facility] ([place]) Comment on above: Performed By: #### U NICOLE UA #### [address] [place], [place] [address] XR ABDOMEN SERIES W/CHEST 1 VIEWon 01-30-2022 XR ABDOMEN SERIES W/CHEST 1 VIEW ORIGINAL EXAMINATION: TWO XRAY VIEWS OF THE ABDOMEN AND SINGLE XRAY VIEW OF THE CHEST 01/30/2022 12:26 am COMPARISON: Chest x-ray on 10/03/2020 HISTORY: ORDERING SYSTEM PROVIDED HISTORY: Reason for Exam: vomiting/pain FINDINGS: The heart size and mediastinal contours are normal. There is no lung infiltrate or edema. No pneumothorax or pleural fluid is present. Supine and upright x-rays of the abdomen demonstrate a nonobstructive bowel gas pattern. There are no dilated loops of intestine. No free intraperitoneal air or other abnormal gas collection is present. There are no pathologic calcifications. There is no sign of organomegaly. The skeletal structures are unremarkable. IMPRESSION: No sign of acute chest or abdominal process. Interpreted by: Terrence Finch MD Preliminary Report By: Terrence Finch MD Electronically signed By Terrence Finch MD Dictated Date: 01/30/2022 12:30:57 AM Prelim Date: 01/30/2022 12:33:17 AM Sign Date: 01/30/2022 12:33:17 AM Ordering Provider: IDLLON TAMAYO [facility] ([place]) XR ANKLE AND FOOT 6 VIEWS LE FTon 12-15-2021 XR ANKLE AND FOOT 6 VIEWS LEFT ORIGINAL EXAMINATION: 6 XRAY VIEWS OF THE left lower EXTREMITY, ankle and foot 12/15/2021 4:51 pm COMPARISON: None. HISTORY: ORDERING SYSTEM PROVIDED HISTORY: Reason for Exam: pain FINDINGS: There is no evidence of acute fracture. There is normal alignment. No acute joint abnormality. No focal osseous lesion. No focal soft tissue abnormality. IMPRESSION: No acute osseous abnormality. Interpreted by: Wagner Wheeler Preliminary Report By: Wagner Wheeler Electronically signed By Wagner Wheeler Dictated Date: 12/15/2021 5:39:25 PM Prelim Date: 12/15/2021 5:42:08 PM Sign Date: 12/15/2021 5:42:08 PM Ordering Provider: CLEMENT Evans [facility] ([place]) Absolute lymphocyte countOrd ered By: ED PROVIDER on 11-23-2021 Lymphocytes Auto (Unsp spec) [#/Vol] 1.72 10*3/uL 0.83-4.51 [facility] Basophil percentageOrdered B y: ED PROVIDER on 11-23-2021 Basophils/100 WBC (Bld) 0.5 % 0-1 [facility] Chloride [Moles/Vol] 111 mmol/L 98-107 [facility] Eosinophils/100 WBC (Bld) 1.0 % 0-5 [facility] Glucose [Mass/Vol] 85 mg/dL 74-106 [facility] Neutrophils (Bld) [#/Vol] 3.6 10*3/uL 2.0-7.7 [facility] Neutrophils/100 WBC (Bld) 62.6 % 47-70 [facility] Potassium [Moles/Vol] 4.2 mmol/L 3.5-5.1 [facility] Sodium [Moles/Vol] 141 mmol/L 136-145 [facility] WBC (Bld) [#/Vol] 5.8 10*3/uL 4.4-11.0 [facility] Beta hCG serum qualOrdered B y: ED PROVIDER on 11-23-2021 Beta HCG ( test) Ql Negative [facility] Blood erythrocytes count (nu mber/volume)Ordered By: ED PROVIDER on 11-23-2021 RBC (Bld) [#/Vol] 4.99 10*6/uL 4.2-5.4 [facility] Blood hemoglobin measurement (mass/volume)Ordered By: ED PROVIDER on 11-23-2021 Hemoglobin (Bld) [Mass/Vol] 14.1 g/dL 12.0-15.0 [facility] Blood lymphocytes/100 leukoc ytesOrdered By: ED PROVIDER on 11-23-2021 Lymphocytes/100 WBC (Bld) 29.7 % 19-41 [facility] Blood monocytes/100 leukocyt esOrdered By: ED PROVIDER on 11-23-2021 Monocytes/100 WBC (Bld) 6.0 % 0-10 [facility] Blood platelet mean volumeOr dered By: ED PROVIDER on 11-23-2021 Platelet mean volume (Bld) [Entitic vol] 11.2 fL 6.2-12.0 [facility] Culture, urineOrdered By: Indira Price on 11-23-2021 Bacteria identified Cx Nom (U) Positive [facility] Determination of erythrocyte mean corpuscular volume (MCV)Ordered By: ED PROVIDER on 11-23-2021 MCV (RBC) [Entitic vol] 85.4 fL 81-99 [facility] Hematocrit Auto (Bld) [Volum e fraction]Ordered By: ED PROVIDER on 11-23-2021 Hematocrit (Bld) [Volume fraction] 42.6 % 37-47 [facility] Laboratory - Chemistry and C hemistry - challengeOrdered By: ED PROVIDER on 11-23-2021 CO2 [Moles/Vol] 27.0 mmol/L 21.0-32.0 [facility] Urea nitrogen/Creatinine [Mass ratio] 10.5 mg/mg 10-20 [facility] Laboratory - Drug toxicology Ordered By: ED PROVIDER on 11-23-2021 Amphetamines Ql (U) Negative <1000 ng/mL [facility] Benzodiazepines Ql (U) Negative < 200 ng/mL [facility] Cannabinoids Screen Ql (U) Negative < 50 ng/mL [facility] Cocaine Ql (U) Negative < 300 ng/mL [facility] Opiates Ql (U) Negative < 300 ng/mL [facility] Laboratory - Hematology and Cell countsOrdered By: ED PROVIDER on 11-23-2021 Erythrocyte distribution width (RBC) [Entitic vol] 42.3 fL 35.1-43.9 [facility] Erythrocyte distribution width (RBC) [Ratio] 13.6 % 11.6-14.6 [facility] Immature granulocytes/100 WBC (Bld) 0.200 % 0.0-0.9 [facility] Comment on above: IG% - Immature Granu locytes (promyelocytes, myelocytes and metamyelocytes) > 1% indicates that a LEFT SHIFT is Present. MCH (RBC) [Entitic mass] 28.3 pg 27.0-32.0 [facility] Nucleated RBC/100 WBC (Bld) [Ratio] 0 % 0-5 [facility] MCHC Auto (RBC) [Mass/Vol]Or dered By: ED PROVIDER on 11-23-2021 MCHC (RBC) [Mass/Vol] 33.1 g/dL 32-36 [facility] No Panel InformationOrdered By: ED PROVIDER on 11-23-2021 Estimated Creatinine Clearance Calc 64.85 ml/min [facility] Estimated GFR (MDRD) Amer 79 mL/min >60 [facility] Comment on above: GFR Calc Estimated GFR (MDRD) Non-Af Amer 65 mL/min >60 [facility] Comment on above: Non- GFR Calc Ethyl Alcohol Level < 3.0 mg/dL [facility] Comment on above: The serum:whole bloo d ethanol ratio is approximately 1.14and varies slightly with hematocrit. Medical Alcohol reference interval and critical value innon-tolerant individuals; 50 - 100 Impairment 100 Intoxication 100 - 250 Severe Poisoning 250 - 400 Deep/possible fatal coma MDMA (Ecstasy) Screen Negative < 500 ng/mL [facility] Urine Barbiturates Screen Negative < 200 ng/mL [facility] Urine Drug Screen Comment [facility] Comment on above: CONFIRMATORY TESTING FOR ALL POSITIVE URINE DRUG SCREENRESULTS WILL ONLY BE SENT OUT UPON PHYSICIAN ORDER. VISTA Urine Drug Screen methods provide only preliminaryanalytical test results. A more specific alternate chemicalmethod must be used in order to obtain a confirmedanalytical result. Gas chromatography/mass spectrometery(GC/MS) is the preferred confirmatory method. Clinicalconsideration and professional judgement should be appliedto any drug of abuse test result, particularly whenpreliminary positive results are used. URINE TCA TESTING MUST BE ORDERED SEPARATELY. USE TESTMNEMONIC: [facility] Urine Methadone Screen Negative < 300 ng/mL [facility] Platelets bldOrdered By: ED PROVIDER on 11-23-2021 Platelets (Bld) [#/Vol] 188 10*3/uL 150-450 [facility] Serum or plasma calcium karis urement (mass/volume)Ordered By: ED PROVIDER on 11-23-2021 Calcium [Mass/Vol] 9.4 mg/dL 8.5-10.1 [facility] Serum or plasma creatinine m easurement (mass/volume)Ordered By: ED PROVIDER on 11-23-2021 Creatinine [Mass/Vol] 0.95 mg/dL 0.55-1.02 [facility] Comment on above: The validity of the calculated GFR & GFRAA in patients over 70 years has not been determined. Clinical correlation is essential. Serum or plasma urea nitroge n measurement (mass/volume)Ordered By: ED PROVIDER on 11-23-2021 Urea nitrogen [Mass/Vol] 10 mg/dL 7-18 [facility] Thin prep Papanicolaou smear with manual screeningOrdered By: ED PROVIDER on 11-23-2021 Thin prep Papanicolaou smear with manual screening 3 5-15 [facility] Urine phencyclidine (PCP) de tectionOrdered By: ED PROVIDER on 11-23-2021 Phencyclidine Ql (U) Negative < 25 ng/mL [facility] Absolute lymphocyte countOrd ered By: Nain Price on 11-22-2021 Lymphocytes Auto (Unsp spec) [#/Vol] 2.06 10*3/uL 0.83-4.51 [facility] Amorphous sediment detection in urine sediment by light microscopyOrdered By: Nain Price on 11-22-2021 Amorphous sediment LM Ql (Urine sed) 2+ [facility] Basophil percentageOrdered B y: Nain Price on 11-22-2021 Basophil percentage 0-5 SEEN /hpf 0-[address] [facility] Basophils/100 WBC (Bld) 0.5 % 0-1 [facility] Chloride [Moles/Vol] 111 mmol/L 98-107 [facility] Eosinophils/100 WBC (Bld) 1.5 % 0-5 [facility] Glucose [Mass/Vol] 106 mg/dL 74-106 [facility] Comment on above: Fasting Glucose resu lt from 100 to 125 mg/dL suggests IMPAIRED HOMEOSTASIS per A.D.A. criteria. Neutrophils (Bld) [#/Vol] 3.9 10*3/uL 2.0-7.7 [facility] Neutrophils/100 WBC (Bld) 60.1 % 47-70 [facility] Potassium [Moles/Vol] 4.2 mmol/L 3.5-5.1 [facility] Comment on above: Slight Hemolysis, Re sult may be falsely increased. Sodium [Moles/Vol] 142 mmol/L 136-145 [facility] WBC (Bld) [#/Vol] 6.5 10*3/uL 4.4-11.0 [facility] Bilirubin Test strip Ql (U)O rdered By: Nain Price on 11-22-2021 Bilirubin Ql (U) Negative Negative [facility] Blood erythrocytes count (nu mber/volume)Ordered By: Nain Price on 11-22-2021 RBC (Bld) [#/Vol] 5.02 10*6/uL 4.2-5.4 [facility] Blood hemoglobin measurement (mass/volume)Ordered By: Nain Price on 11-22-2021 Hemoglobin (Bld) [Mass/Vol] 13.9 g/dL 12.0-15.0 [facility] Blood lymphocytes/100 leukoc ytesOrdered By: Nain Price on 11-22-2021 Lymphocytes/100 WBC (Bld) 31.5 % 19-41 [facility] Blood monocytes/100 leukocyt esOrdered By: Nain Price on 11-22-2021 Monocytes/100 WBC (Bld) 6.1 % 0-10 [facility] Blood platelet mean volumeOr dered By: Nain Prcie on 11-22-2021 Platelet mean volume (Bld) [Entitic vol] 10.8 fL 6.2-12.0 [facility] Determination of erythrocyte mean corpuscular volume (MCV)Ordered By: Nain Price on 11-22-2021 MCV (RBC) [Entitic vol] 86.7 fL 81-99 [facility] Hematocrit Auto (Bld) [Volum e fraction]Ordered By: Nain Price on 11-22-2021 Hematocrit (Bld) [Volume fraction] 43.5 % 37-47 [facility] Ketones Test strip Ql (U)Ord ered By: Nain Price on 11-22-2021 Ketones Ql (U) Negative Negative [facility] Laboratory - Chemistry and C hemistry - challengeOrdered By: Nain Price on 11-22-2021 HCG ( test) Ql (U) Negative [facility] Comment on above: Very dilute urine sp ecimens, as indicated by a low specificgravity, may not contain textiles sales representative levels of hCG. If is still suspected, a first morning urinespecimen should be collected 48 hours later and tested. CO2 [Moles/Vol] 26.0 mmol/L 21.0-32.0 [facility] Urea nitrogen/Creatinine [Mass ratio] 15.5 mg/mg 10-20 [facility] Laboratory - Hematology and Cell countsOrdered By: Nain Price on 11-22-2021 Erythrocyte distribution width (RBC) [Entitic vol] 43.9 fL 35.1-43.9 [facility] Erythrocyte distribution width (RBC) [Ratio] 13.8 % 11.6-14.6 [facility] Immature granulocytes/100 WBC (Bld) 0.300 % 0.0-0.9 [facility] Comment on above: IG% - Immature Granu locytes (promyelocytes, myelocytes and metamyelocytes) > 1% indicates that a LEFT SHIFT is Present. MCH (RBC) [Entitic mass] 27.7 pg 27.0-32.0 [facility] Nucleated RBC/100 WBC (Bld) [Ratio] 0 % 0-5 [facility] MCHC Auto (RBC) [Mass/Vol]Or dered By: Nain Price on 11-22-2021 MCHC (RBC) [Mass/Vol] 32.0 g/dL 32-36 [facility] Mucus LM Ql (Urine sed)Order ed By: Nain Price on 11-22-2021 Mucus Ql (Urine sed) 0 SEEN /hpf [facility] Nitrite Test strip Ql (U)Ord ered By: Nain Price on 11-22-2021 Nitrite Ql (U) Negative Negative [facility] No Panel InformationOrdered By: Nain Price on 11-22-2021 Estimated Creatinine Clearance Calc 68.45 ml/min [facility] Estimated GFR (MDRD) Amer 84 mL/min >60 [facility] Comment on above: GFR Calc Estimated GFR (MDRD) Non-Af Amer 69 mL/min >60 [facility] Comment on above: Non- GFR Calc Platelets bldOrdered By: Zander Price on 11-22-2021 Platelets (Bld) [#/Vol] 195 10*3/uL 150-450 [facility] Protein Test strip Ql (U)Ord ered By: Nain Price on 11-22-2021 Protein Ql (U) 15 mg/dl Negative [facility] Serum or plasma calcium karis urement (mass/volume)Ordered By: Nain Price on 11-22-2021 Calcium [Mass/Vol] 9.0 mg/dL 8.5-10.1 [facility] Serum or plasma creatinine m easurement (mass/volume)Ordered By: Nain Price on 11-22-2021 Creatinine [Mass/Vol] 0.90 mg/dL 0.55-1.02 [facility] Comment on above: The validity of the calculated GFR & GFRAA in patients over 70 years has not been determined. Clinical correlation is essential. Serum or plasma urea nitroge n measurement (mass/volume)Ordered By: Nain Price on 11-22-2021 Urea nitrogen [Mass/Vol] 14 mg/dL 7-18 [facility] Squamous epithelial cells de tection in urine sediment by light microscopyOrdered By: Nain Price on 11-22-2021 Epithelial cells.squamous LM Ql (Urine sed) 0-5 SEEN /hpf 5-10 [facility] Thin prep Papanicolaou smear with manual screeningOrdered By: Nain Price on 11-22-2021 Thin prep Papanicolaou smear with manual screening 5 5-15 [facility] Urine blood detectionOrdered By: Nain Price on 11-22-2021 RBC Ql (U) 25 /ul Negative [facility] RBC Ql (U) 0-5 SEEN /hpf 0-5 [facility] Urine clarityOrdered By: Zander Price on 11-22-2021 Clarity (U) Clear Clear [facility] Urine color determinationOrd ered By: Nain Price on 11-22-2021 Color (U) Yellow Yellow [facility] Urine glucose detectionOrder ed By: Nain Price on 11-22-2021 Glucose Ql (U) Normal mg/dl Normal [facility] Urine leukocyte esterase det ection by dipstickOrdered By: Nain Price on 11-22-2021 Leukocyte esterase Test strip Ql (U) 100 /ul Negative [facility] Urine pHOrdered By: Nain saleem on 11-22-2021 pH (U) 6.0 [pH] 5.0 - 8.0 [facility] Urine sediment bacteria coun t by microscopy (number/high power field)Ordered By: Nain Price on 11-22-2021 Bacteria LM.HPF (Urine sed) [#/Area] 2 /[HPF] None Seen [facility] Urine specific gravity measu rementOrdered By: Nain Price on 11-22-2021 Specific gravity (U) [Rel density] 1.015 1.002-1.030 [facility] Urobilinogen Auto test strip Ql (U)Ordered By: Nain Price on 11-22-2021 Urobilinogen Ql (U) 1 mg/dl Normal [facility] Progress Noteson 10-05-2021 [employer] Authentication Interface Message Text Documentation: Mode: Telephone Patient Patient Work Phone: Patient Cell Preferred phone: [phone] Consent: I confirmed patient understanding of the risks and benefits of telehealth visits and obtained consent to proceed with the telehealth visit. Location of Patient: Home of patient Telephone/Video Encounter This visit was performed via interactive telehealth. This visit was initiated by the patient / provider and the patient and provider interacted in real time. Location of the patient: Home of patient Location of the provider: [facility] Reviewed informed consent with patient: yes - see MR Patient/parent indicated understanding of informed consent: yes see MR Verified number ([phone]) and current location (in MR) as well as privacy and minimization of distractions. Agreed provider would call pt back if call was disconnected. Total Time Spent with Patient: 75 minutes, of which greater than 50% was spent on counseling or coordinating care. Reviewed patients understanding of the risks and benefits of telehealth visits and obtained informed consent from the patient or legal guardian: Yes The patient's presenting problems and apparent condition are considered appropriate for the use of telehealth. In addition, the patient/guardian/caregi esperanza have sufficient knowledge and skills to appropriately use technology involved or can use a personal aid or assistive device to do so. Limited ability to assess mental/behavioral status via phone/video. BEHAVIORAL HEALTH COUNSELING AND THERAPY 10/05/2021 START TIME: 10:15 END TIME: 11:30 Duration: 75 minutes for individual counseling Treatment Plan goal addressed today: Goal(s): Gender Affirming Treatment assessment documentation request Progress toward treatment plan goals: Yes Explain: Pt would like letter for top (double mastectomy) and bottom surgery (phalloplasty) - for latter is uncertain whats possible d/t defect so would need to go by surgeon's recommendations - discussed nature of organ structure and functioning re this Had full hysterectomy several years ago related to complications from last and cervical cancer; Discussed current sxs and surgery readiness recommendations and guidelines; including provider's rec that pt discuss possible additional care takers to optimize recovery as well as other guidelines and questions about care recs (e.g. nicotine cessation duration; appropriate genital surgery based on med needs) How was treatment goal addressed in session (Interventions): Education about illness Supportive therapy Review coping skills for managing sxs Solution focused interventions, discussion, questioning Practical advice as necessary Identify childhood contributions Identify triggers of anxiety Provider to send draft treatment rec letter in the next two weeks Significant Life Changes: None reported. PAIN ASSESSMENT: Patient did not report pain today but does have pain issues. MENTAL STATUS EXAM: 1. APPEARANCE: unable to assess via phone 2. BEHAVIOR: cooperative, anxious, appropriate 3. ORIENTATION: Oriented to time, person AND place 4. SPEECH: spontaneous, normal rate and flow 5. THOUGHT PROCESS: logical, organized 6. ASSOCIATION: tight 7. ABNORMAL/PSYCHOTIC THOUGHTS: no abnormal processes noted 8. JUDGMENT AND INSIGHT: Good 9. RECENT AND REMOTE MEMORY: Within normal limits 10.ATTENTION SPAN AND CONCENTRATION: sustained 11. LANGUAGE: appropriate 12. FUND OF KNOWLEDGE: Okay 13. MOOD: anxious, dysphoric 14. AFFECT: range full Suicide Screener: C-SSRS [place]-Suicide Severity Rating Scale Able to complete [place]-Suicide Severity Rating Scale with Patient?: Yes 1) Wish to be : No 2) Current suicidal thoughts: No 6) C-SSRS Suicidal Behavior: Yes 6a) Was it within the past 3 months?: No Risk of Suicide: Negative Screen Did patient score moderate or high risk on the C-SSRS?: No SAFE-T Last time thoughts re SI after lost custody of daughter (and hospitalized) Last time attempt was adolescence PATIENT EDUCATION: AVAILABILITY OF ED AND MOBILE CRISIS AFTER CLINIC HOURS DISCUSSED: No PATIENT VERBALIZED UNDERSTANDING OF ABOVE INFORMATION: Yes BARRIERS TO LEARNING: Pain Emotional TEACHING METHOD: Discussion RESPONSE: Verbalized information correctly Verbalizes understanding COGNITIVE FUNCTION SUFFICIENT FOR DIALOGUE WITH THERAPIST: Yes INTERACTIVE COMPLEXITY: Not applicable CLINICAL IMPRESSION: Symptoms unchanged Mood stable Re-reviewed sxs: Re-experiencing: denied this as problem Avoids triggers I know my triggers and I stay away from them does not cause problems (e.g., DV, fighting/arguing/scream ing someone putting hands on someone else galo male to female) Denied: hypervigilance, ANS arousal Concentration: denied Memory: reports difficulty e.g. I have lost days long and short (more content not included)... Normal [employer] Absolute lymphocyte counton 08-07-2021 Lymphocytes Auto (Unsp spec) [#/Vol] 1.77 10*3/uL 0.83-4.51 [facility] Work Phone: Basophil percentageon 2021 Basophils/100 WBC (Bld) 0.4 % 0-1 [facility] Work Phone: Bilirubin [Mass/Vol] 0.20 mg/dL 0.20-1.00 [facility] Work Phone: Comment on above: For patients on eltr ombopag therapy, use of Dimension Helm TBIL is not recommended. Chloride [Moles/Vol] 109 mmol/L 98-107 [facility] Work Phone: Eosinophils/100 WBC (Bld) 1.3 % 0-5 [facility] Work Phone: Glucose [Mass/Vol] 111 mg/dL 74-106 [facility] Work Phone: Comment on above: Fasting Glucose resu lt from 100 to 125 mg/dL suggests IMPAIRED HOMEOSTASIS per A.D.A. criteria. Neutrophils (Bld) [#/Vol] 5.5 10*3/uL 2.0-7.7 [facility] Work Phone: Neutrophils/100 WBC (Bld) 69.3 % 47-70 [facility] Work Phone: Potassium [Moles/Vol] 3.8 mmol/L 3.5-5.1 [facility] Work Phone: Protein [Mass/Vol] 6.9 g/dL 6.4-8.2 [facility] Work Phone: Sodium [Moles/Vol] 141 mmol/L 136-145 [facility] Work Phone: WBC (Bld) [#/Vol] 7.9 10*3/uL 4.4-11.0 [facility] Work Phone: Basophil percentage 5-10 SEEN /hpf 0-5 [facility] Work Phone: Bilirubin Test strip Ql (U)o n 08-07-2021 Bilirubin Ql (U) Negative Negative [facility] Work Phone: Blood erythrocytes count (nu mber/volume)on 08-07-2021 RBC (Bld) [#/Vol] 5.05 10*6/uL 4.2-5.4 [facility]: Blood hemoglobin measurement (mass/volume)on 08-07-2021 Hemoglobin (Bld) [Mass/Vol] 14.2 g/dL 12.0-15.0 [facility] Work Phone: Blood lymphocytes/100 leukoc yteson 08-07-2021 Lymphocytes/100 WBC (Bld) 22.3 % 19-41 [facility] Work Phone: Blood monocytes/100 leukocyt eson 08-07-2021 Monocytes/100 WBC (Bld) 6.3 % 0-10 [facility] Work Phone: Blood platelet mean volumeon 08-07-2021 Platelet mean volume (Bld) [Entitic vol] 11.7 fL 6.2-12.0 [facility] Work Phone: Determination of erythrocyte mean corpuscular volume (MCV)on 08-07-2021 MCV (RBC) [Entitic vol] 88.1 fL 81-99 [facility] Work Phone: Hematocrit Auto (Bld) [Volum e fraction]on 08-07-2021 Hematocrit (Bld) [Volume fraction] 44.5 % 37-47 [facility] Work Phone: Ketones Test strip Ql (U)on 08-07-2021 Ketones Ql (U) Negative Negative [facility] Work Phone: Laboratory - Chemistry and C hemistry - challengeon 08-07-2021 ALP [Catalytic activity/Vol] 77 U/L 45-117 [facility] Work Phone: ALT [Catalytic activity/Vol] 21 U/L 13-56 [facility] Work Phone: CO2 [Moles/Vol] 25.0 mmol/L 21.0-32.0 [facility] Work Phone: Globulin (S) [Mass/Vol] 3.0 g/dL 2.2-4.2 [facility] Work Phone: Lipase [Catalytic activity/Vol] 124 U/L 73-393 [facility] Work Phone: Urea nitrogen/Creatinine [Mass ratio] 16.6 mg/mg 10-20 [facility] Work Phone: Laboratory - Hematology and Cell countson 08-07-2021 Erythrocyte distribution width (RBC) [Entitic vol] 44.6 fL 35.1-43.9 [facility] Work Phone: Erythrocyte distribution width (RBC) [Ratio] 13.8 % 11.6-14.6 [facility] Work Phone: Immature granulocytes/100 WBC (Bld) 0.400 % 0.0-0.9 [facility] Work Phone: Comment on above: IG% - Immature Granu locytes (promyelocytes, myelocytes and metamyelocytes) > 1% indicates that a LEFT SHIFT is Present. MCH (RBC) [Entitic mass] 28.1 pg 27.0-32.0 [facility] Work Phone: Nucleated RBC/100 WBC (Bld) [Ratio] 0 % 0-5 [facility] Work Phone: MCHC Auto (RBC) [Mass/Vol]on 08-07-2021 MCHC (RBC) [Mass/Vol] 31.9 g/dL 32-36 [facility] Work Phone: Mucus LM Ql (Urine sed)on Mucus Ql (Urine sed) 0 SEEN /hpf [facility] Work Phone: Nitrite Test strip Ql (U)on 08-07-2021 Nitrite Ql (U) Negative Negative [facility] Work Phone: No Panel Informationon 08-07 Estimated Creatinine Clearance Calc 64.17 ml/min [facility] Work Phone: Estimated GFR (MDRD) Amer 78 mL/min >60 [facility] Work Phone: Comment on above: GFR Calc Estimated GFR (MDRD) Non-Af Amer 65 mL/min >60 [facility] Work Phone: Comment on above: Non- GFR Calc Platelets bldon 08-07-2021 Platelets (Bld) [#/Vol] 206 10*3/uL 150-450 [facility] Work Phone: Protein Test strip Ql (U)on 08-07-2021 Protein Ql (U) 15 mg/dl Negative [facility] Work Phone: Serum or plasma albumin karis urement (mass/volume)on 08-07-2021 Albumin [Mass/Vol] 3.9 g/dL 3.2-5.0 [facility] Work Phone: Serum or plasma albumin/glob ulin mass ratioon 08-07-2021 Albumin/Globulin [Mass ratio] 1.3 {ratio} 0.9-2.4 [facility] Work Phone: Serum or plasma calcium karis urement (mass/volume)on 08-07-2021 Calcium [Mass/Vol] 8.8 mg/dL 8.5-10.1 [facility] Work Phone: Serum or plasma creatinine m easurement (mass/volume)on 08-07-2021 Creatinine [Mass/Vol] 0.96 mg/dL 0.55-1.02 [facility] Work Phone: Comment on above: The validity of the calculated GFR & GFRAA in patients over 70 years has not been determined. Clinical correlation is essential. Serum or plasma urea nitroge n measurement (mass/volume)on 08-07-2021 Urea nitrogen [Mass/Vol] 16 mg/dL 7-18 [facility] Work Phone: Squamous epithelial cells de tection in urine sediment by light microscopyon 08-07-2021 Epithelial cells.squamous LM Ql (Urine sed) 5-10 SEEN /hpf 5-10 [facility] Work Phone: Thin prep Papanicolaou smear with manual screeningon 08-07-2021 Thin prep Papanicolaou smear with manual screening 16 U/L 15-37 [facility] Work Phone: Thin prep Papanicolaou smear with manual screening 7 5-15 [facility] Work Phone: Urine blood detectionon - RBC Ql (U) 50 /ul Negative [facility] Work Phone: RBC Ql (U) 0-5 SEEN /hpf 0-5 [facility] Work Phone: Urine clarityon 08-07-2021 Clarity (U) Clear Clear [facility] Work Phone: Urine color determinationon 08-07-2021 Color (U) Yellow Yellow [facility] Work Phone: Urine glucose detectionon Glucose Ql (U) Normal mg/dl Normal [facility] Work Phone: Urine leukocyte esterase det ection by dipstickon 08-07-2021 Leukocyte esterase Test strip Ql (U) 25 /ul Negative [facility] Work Phone: Urine pHon 08-07-2021 pH (U) 6.0 [pH] 5.0 - 8.0 [facility] Work Phone: Urine sediment bacteria coun t by microscopy (number/high power field)on 08-07-2021 Bacteria LM.HPF (Urine sed) [#/Area] 1 /[HPF] None Seen [facility] Work Phone: Urine specific gravity measu rementon 08-07-2021 Specific gravity (U) [Rel density] 1.020 1.002-1.030 [facility] Work Phone: Urobilinogen Auto test strip Ql (U)on 08-07-2021 Urobilinogen Ql (U) 1 mg/dl Normal [facility] Work Phone: Telephone Encounteron 2021 [employer] Authentication Interface Message Text ----- Message from Delmy Verdugo, PhD sent at 07/11/2021 4:29 PM EDT ----- Regarding: r/s pt Hello, This pt still shows on my schedule but I'm out in the afternoon. Can they please be rescheduled? Delmy Verdugo, MS, PhD Counseling Psychologist Psychiatry / Family Medicine License #[id number] Normal [facility] Absolute lymphocyte counton 07-10-2021 Lymphocytes Auto (Unsp spec) [#/Vol] 2.13 10*3/uL 0.83-4.51 [facility] Work Phone: Basophil percentageon 2021 Basophil percentage 0-5 SEEN /hpf 0-5 [facility] Work Phone: Basophils/100 WBC (Bld) 0.3 % 0-1 [facility] Work Phone: Bilirubin [Mass/Vol] 0.30 mg/dL 0.20-1.00 [facility] Work Phone: Comment on above: For patients on eltr ombopag therapy, use of Dimension Helm TBIL is not recommended. Chloride [Moles/Vol] 109 mmol/L 98-107 [facility] Work Phone: Eosinophils/100 WBC (Bld) 0.3 % 0-5 [facility] Work Phone: Glucose [Mass/Vol] 117 mg/dL 74-106 [facility] Work Phone: Comment on above: Fasting Glucose resu lt from 100 to 125 mg/dL suggests IMPAIRED HOMEOSTASIS per A.D.A. criteria. Neutrophils (Bld) [#/Vol] 9.7 10*3/uL 2.0-7.7 [facility] Work Phone: Neutrophils/100 WBC (Bld) 77.9 % 47-70 [facility] Work Phone: Potassium [Moles/Vol] 4.2 mmol/L 3.5-5.1 [facility] Work Phone: Protein [Mass/Vol] 7.5 g/dL 6.4-8.2 [facility] Work Phone: Sodium [Moles/Vol] 140 mmol/L 136-145 [facility] Work Phone: WBC (Bld) [#/Vol] 12.5 10*3/uL 4.4-11.0 [facility] Work Phone: Bilirubin Test strip Ql (U)o n 07-10-2021 Bilirubin Ql (U) Negative Negative [facility] Work Phone: Blood erythrocytes count (nu mber/volume)on 07-10-2021 RBC (Bld) [#/Vol] 5.07 10*6/uL 4.2-5.4 [facility] Work Phone: Blood hemoglobin measurement (mass/volume)on 07-10-2021 Hemoglobin (Bld) [Mass/Vol] 14.8 g/dL 12.0-15.0 [facility] Work Phone: Blood lymphocytes/100 leukoc yteson 07-10-2021 Lymphocytes/100 WBC (Bld) 17.1 % 19-41 [facility] Work Phone: Blood monocytes/100 leukocyt eson 07-10-2021 Monocytes/100 WBC (Bld) 3.8 % 0-10 [facility] Work Phone: Blood platelet mean volumeon 07-10-2021 Platelet mean volume (Bld) [Entitic vol] 11.3 fL 6.2-12.0 [facility] Work Phone: Determination of erythrocyte mean corpuscular volume (MCV)on 07-10-2021 MCV (RBC) [Entitic vol] 87.2 fL 81-99 [facility] Work Phone: Direct bilirubinon 2 Bilirubin.direct [Mass/Vol] 0.13 mg/dL 0.00-0.30 [facility] Work Phone: Hematocrit Auto (Bld) [Volum e fraction]on 07-10-2021 Hematocrit (Bld) [Volume fraction] 44.2 % 37-47 [facility] Work Phone: Ketones Test strip Ql (U)on 07-10-2021 Ketones Ql (U) Negative Negative [facility] Work Phone: Laboratory - Chemistry and C hemistry - challengeon 07-10-2021 ALP [Catalytic activity/Vol] 74 U/L 45-117 [facility] Work Phone: ALT [Catalytic activity/Vol] 24 U/L 13-56 [facility] Work Phone: CO2 [Moles/Vol] 27.0 mmol/L 21.0-32.0 [facility] Work Phone: Globulin (S) [Mass/Vol] 3.5 g/dL 2.2-4.2 [facility] Work Phone: Lipase [Catalytic activity/Vol] 92 U/L 73-393 [facility] Work Phone: Urea nitrogen/Creatinine [Mass ratio] 11.3 mg/mg 10-20 [facility] Work Phone: Laboratory - Hematology and Cell countson 07-10-2021 Erythrocyte distribution width (RBC) [Entitic vol] 43.7 fL 35.1-43.9 [facility] Work Phone: Erythrocyte distribution width (RBC) [Ratio] 13.7 % 11.6-14.6 [facility] Work Phone: Immature granulocytes/100 WBC (Bld) 0.600 % 0.0-0.9 [facility] Work Phone: Comment on above: IG% - Immature Granu locytes (promyelocytes, myelocytes and metamyelocytes) > 1% indicates that a LEFT SHIFT is Present. MCH (RBC) [Entitic mass] 29.2 pg 27.0-32.0 [facility] Work Phone: Nucleated RBC/100 WBC (Bld) [Ratio] 0 % 0-5 [facility] Work Phone: MCHC Auto (RBC) [Mass/Vol]on 07-10-2021 MCHC (RBC) [Mass/Vol] 33.5 g/dL 32-36 [facility] Work Phone: Mucus LM Ql (Urine sed)on Mucus Ql (Urine sed) 0 SEEN /hpf [facility] Work Phone: Nitrite Test strip Ql (U)on 07-10-2021 Nitrite Ql (U) Negative Negative [facility] Work Phone: No Panel Informationon 07-10 Estimated Creatinine Clearance Calc 58.12 ml/min [facility] Work Phone: Estimated GFR (MDRD) Amer 70 mL/min >60 [facility] Work Phone: Comment on above: GFR Calc Estimated GFR (MDRD) Non-Af Amer 58 mL/min >60 [facility] Work Phone: Comment on above: Non- GFR Calc Platelets bldon 07-10-2021 Platelets (Bld) [#/Vol] 234 10*3/uL 150-450 [facility] Work Phone: Protein Test strip Ql (U)on 07-10-2021 Protein Ql (U) Negative Negative [facility] Work Phone: Serum or plasma albumin karis urement (mass/volume)on 07-10-2021 Albumin [Mass/Vol] 4.0 g/dL 3.2-5.0 [facility] Work Phone: Serum or plasma calcium karis urement (mass/volume)on 07-10-2021 Calcium [Mass/Vol] 9.8 mg/dL 8.5-10.1 [facility] Work Phone: Serum or plasma creatinine m easurement (mass/volume)on 07-10-2021 Creatinine [Mass/Vol] 1.06 mg/dL 0.55-1.02 [facility] Work Phone: Comment on above: The validity of the calculated GFR & GFRAA in patients over 70 years has not been determined. Clinical correlation is essential. Serum or plasma urea nitroge n measurement (mass/volume)on 07-10-2021 Urea nitrogen [Mass/Vol] 12 mg/dL 7-18 [facility] Work Phone: Squamous epithelial cells de tection in urine sediment by light microscopyon 07-10-2021 Epithelial cells.squamous LM Ql (Urine sed) 0-5 SEEN /hpf 5-10 [facility] Work Phone: Thin prep Papanicolaou smear with manual screeningon 07-10-2021 Thin prep Papanicolaou smear with manual screening 14 U/L 15-37 [facility] Work Phone: Thin prep Papanicolaou smear with manual screening 4 5-15 [facility] Work Phone: Urine blood detectionon 06-13 RBC Ql (U) 10 /ul Negative [facility] Work Phone: RBC Ql (U) 5-10 SEEN /hpf 0-5 [facility] Work Phone: Urine clarityon 07-10-2021 Clarity (U) Clear Clear [facility] Work Phone: Urine color determinationon 07-10-2021 Color (U) Yellow Yellow [facility] Work Phone: Urine glucose detectionon Glucose Ql (U) Normal mg/dl Normal [facility] Work Phone: Urine leukocyte esterase det ection by dipstickon 07-10-2021 Leukocyte esterase Test strip Ql (U) 25 /ul Negative [facility] Work Phone: Urine pHon 07-10-2021 pH (U) 6.0 [pH] 5.0 - 8.0 [facility] Work Phone: Urine sediment bacteria coun t by microscopy (number/high power field)on 07-10-2021 Bacteria LM.HPF (Urine sed) [#/Area] 0 /[HPF] None Seen [facility] Work Phone: Urine specific gravity measu rementon 07-10-2021 Specific gravity (U) [Rel density] 1.010 1.002-1.030 [facility] Work Phone: Urobilinogen Auto test strip Ql (U)on 07-10-2021 Urobilinogen Ql (U) Normal mg/dl Normal [facility] Work Phone: Progress Noteson 05-02-2021 [employer] Authentication Interface Message Text This visit has been rescheduled as a phone visit to comply with patient safety concerns in accordance with CDC recommendations. Attempted to reach pt at number in MR two times. Phone numbers LM that I was calling for our video / phone apt; I'll try again in a few minutes to see if we are able to connect. If pt connects to video visit I'll be alerted that pt has joined. I'll try again in a few minutes to see if we can connect either way (phone/video). LM second time hoping pt is doing okay. If needing to schedule apt please call: [phone] (Psychiatry). If needing to LM for me please call [phone] or send DAQRIhart message. Total Time Spent with Patient: 0 minutes, of which greater than 50% was spent on counseling or coordinating care. Delmy Verdugo MS, PhD Counseling Psychologist Psychiatry / Family Medicine License #[id number] This encounter was opened in error. Patient was a No-Show. Please disregard. Normal [employer] Progress Noteson 01-30-2021 [employer] Authentication Interface Message Text This visit has been rescheduled as a phone visit to comply with patient safety concerns in accordance with CDC recommendations. Attempted to reach pt at number in MR two times. Phone numbers LM that I was calling for our video / phone apt; I'll try again in a few minutes to see if we are able to connect. LM second time hoping pt is doing okay. If needing to schedule apt please call: [phone] (Psychiatry). If needing to LM for me please call [phone] or send DAQRIhart message. Total Time Spent with Patient: 0 minutes, of which greater than 50% was spent on counseling or coordinating care. Pt may r/s if needed at any time; contact provider with questions. (Pt likely needs 1-2, 60 minute follow up visits to complete assessment.) Delmy Verdugo MS, PhD Counseling Psychologist Psychiatry / Family Medicine License #[id number] This encounter was opened in error. Patient was a No-Show. Please disregard. Normal [employer] Progress Noteson 01-26-2021 [employer] Authentication Interface Message Text This visit has been rescheduled as a phone visit to comply with patient safety concerns in accordance with CDC recommendations. Telephone/Video Encounter This visit was performed via interactive telehealth. This visit was initiated by the patient / provider and the patient and provider interacted in real time. Location of the patient: Home of patient [address] [place] [id number] Location of the provider: [facility] Reviewed informed consent with patient: yes - see MR Patient/parent indicated understanding of informed consent: yes see MR Phone numbers Verified number (above number is finance's; [phone]) and current location (in MR) as well as privacy and minimization of distractions. Agreed provider would call pt back if call was disconnected. Total Time Spent with Patient: 55 minutes, of which greater than 50% was spent on counseling or coordinating care. Reviewed patients understanding of the risks and benefits of telehealth visits and obtained informed consent from the patient or legal guardian: Yes The patient's presenting problems and apparent condition are considered appropriate for the use of telehealth. In addition, the patient/guardian/caregi esperanza have sufficient knowledge and skills to appropriately use technology involved or can use a personal aid or assistive device to do so. Limited ability to assess mental/behavioral status via phone/video. Psychological Assessment for Gender Affirming Treatment Session 4 Date: 01/26/21 Type of services: Psychological Testing by Psychologist Time in: 1:15 (start delay after tech issues so flipped to phone) Time out: 2:10 Total time: 55 minutes Treatment Plan goal addressed today: Complete psychological assessment toward gender affirming treatment recommendation. How was treatment goal addressed in session (Interventions): Administered/interprete d diagnostic testing. Measures were administered and/or proctored by a licensed psychologist. The property underwriter was present during testing and completed the subsequent interpretation of the results and relevant summary report. Progress toward treatment plan goals: Testing initiated with additional session scheduled Interactive Complexity: Not applicable Progress to date: progressing Changes in Treatment Plan: None needed at this time. Risk Assessment: No concerns of risk to self or others at this time. MEASURES AND INFORMATION SOURCES: Brief Symptom Inventory (BSI) - reviewed feedback [place] Multiphasic Personality Inventory II, Restructured Form (MMPI-2-RF) - reviewed feedback Claude Cognitive Assessment (MOCA) reviewed feedback Posttraumatic Stress Clinical Checklist, Version 5 (PCL-5) Monthly/Weekly review feedback next visit Clinical interview follow up Review of available medical records RELEVANT CLINICAL INFORMATION: Please also see information from prior [facility] Pt clarified upon dxs/sxs including: Trauma sxs - to be assessed Pt reported pain makes stress level go up, denies anxiety /distress outside of dysphoria and mh sxs managed by psych meds; so anx heightened with GD bad and pain intolerable My memory sucks I write everything down calendar for apts, etc. 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 then comes back; when not feeling well doesn't leave house or have fiance come with - makes sure someone is around when feeling foggy; will lose time or forget what he's doing; fiance or roommate will help and support him; manages cog issues with support people; reported problems when alone - last had an episode some years ago: Called his roommate, was 'lost' and had her come get him; keeps his phone with him as another safety measure. Reported has two other personalities other than himself; age 23/25 (female - she/her pronouns I don't have a connection to her reported fiance has never experienced either personality (fiance and pt together few months; good friends before that for years); another 3-4 yrs old (also female she/her) - can connect to latter personality but not former personality. Roommate has experienced younger personality last time was years ago; reported dissociation is managed with medications successfully; as long as my anxiety is in check or I get triggered my personalities don't come out he is careful not to get triggered Re SI has been 2-3 years since thoughts Reported unusual perceptual experiences related to paranormal experiences Seizure - last had yesterday; uncertain how long lasted; woke up to it; fiance helpful Reported in a good place LGBTQ environmentally, denies ideas of persecution / paranoia; reported no iss (more content not included)... Normal [employer] Telephone Encounteron 2020 Freight [employer]ator Authentication Interface Message Text Pt ROMERO on provider's VM that he wouldn't have minutes on his phone until Saturday or evening. Said he was needing to r/s today's apt. Please call and ROMERO on susie's phone ([phone]) regarding this. Provider ROMERO on number above that I had received the message and that pt would need to call [phone] to r/s his apt. If questions please [phone]. Delmy Verdugo MS, PhD Counseling Psychologist Psychiatry / Family Medicine License #[id number] Normal [facility] ED Provider Noteon ED Provider Note ELIJAH LOPEZ ED EMERGENCY DEPARTMENT ENCOUNTER Pt Name: Malaika Irby Birthdate 1970 Date of evaluation: 04/11/2020 Provider: Octavio Ruiz MD CHIEF COMPLAINT Chief Complaint Patient presents with ? Headache HISTORY OF PRESENT ILLNESS (Location/Symptom, Timing/Onset,Context/Se tting, Quality, Duration, Modifying Factors, Severity) Note limiting factors. Malaika Irby is a 49 y.o. female who presents to the emergency department with headache. History of migraines. This is not the worst headache of her life. She has had multiple headaches before. She denies chest pain, shortness of breath, fever, chills, lightheadedness, dizziness. No head trauma. Her usual medicine sumatriptan is not working so she comes in to be seen. Typical headache otherwise. She gets them frequently every week. HPI Nurse's notes for past medical history, surgicalhistory, social history were reviewed. Medications and allergies reviewed. REVIEW OF SYSTEMS (2-9 systems for level 4, 10 or more for level 5) Review of Systems Total of 10 systems reviewed, please see pertinent positives, pertinent negatives above in HPI. PAST MEDICAL HISTORY Past Medical History: Diagnosis Date ? Anxiety ? Arthritis ? Cancer (HCC) ? Carpal tunnel syndrome ? Fibromyalgia ? Pseudoseizures ? PTSD (post-traumatic stress disorder) ? Scoliosis SURGICALHISTORY Past Surgical History: Procedure Laterality Date ? SECTION ? HYSTERECTOMY CURRENT MEDICATIONS Previous Medications ASPIRIN 81 MG CHEWABLE TABLET Take 81 mg by mouth daily BUSPIRONE (BUSPAR) 15 MG TABLET Take 15 mg by mouth 3 times daily CLONAZEPAM (KLONOPIN) 0.5 MG TABLET Take 0.5 mg by mouth 2 times daily as needed. MIRTAZAPINE (REMERON) 15 MG TABLET Take 15 mg by mouth nightly ROPINIROLE (REQUIP) 0.5 MG TABLET Take 0.5 mg by mouth 3 times daily SERTRALINE (ZOLOFT) 50 MG TABLET Take 50 mg by mouth daily Bactrim [sulfamethoxazole-trime thoprim], Demerol hcl [meperidine], Dilaudid [hydromorphone hcl], Effexor xr [venlafaxine hcl], Flexeril [cyclobenzaprine], Gabapentin, Lexapro [escitalopram oxalate], Naproxen, Pexeva [paroxetine], Seroquel xr [quetiapine fumarate er], and Vistaril [hydroxyzine hcl] FAMILY HISTORY History reviewed. No pertinent family history. SOCIAL HISTORY Social History Socioeconomic History ? Marital status: Spouse name: None ? Number of children: None ? Years of education: None ? Highest education level: None Occupational History ? None Social Needs ? Financial resource strain: None ? Food insecurity Worry: None Inability: None ? Transportation needs Medical: None Non-medical: None Tobacco Use ? Smoking status: Current Every Day Smoker Types: Pipe ? Smokeless tobacco: Never Used Substance and Sexual Activity ? Alcohol use: Not Currently ? Drug use: Never ? Sexual activity: Yes Lifestyle ? Physical activity Days per week: None Minutes per session: None ? Stress: None Relationships ? Social connections Talks on phone: None Gets together: None Attends synagogue service: None Active member of club or organization: None Attends meetings of clubs or organizations: None Relationship status: None ? Intimate partner violence Fear of current or ex partner: None Emotionally abused: None Physically abused: None Forced sexual activity: None Other Topics Concern ? None Social History Narrative ? None SCREENINGS PHYSICAL EXAM (up to 7 for level 4, 8 or more for level 5) ED Triage Vitals BP Temp Temp Source Pulse Resp SpO2 Height Weight 04/12/20 0001 04/12/20 0001 04/12/20 0001 04/12/20 0001 04/12/20 0001 04/12/20 0001 -- 04/12/20 0002 115/66 98.2 ?F (36.8 ?C) Temporal 77 16 92 % 171 lb (77.6 kg) Appropriate PPE including n 95, gown, gloves, goggles where worn when appropriate with this patient. Physical Exam Vital signs reviewed general: Alert and oriented ?3 head: Atraumatic eyes: Equal round reactive to light and accommodating, pupils are equal, round and reactive to light and accommodation oropharynx: Clear and well hydrated neck: Supple no lymphadenopathy heart: Regular rate and rhythm, no murmurs lungs: Clear to auscultation bilaterally abdomen: Soft nontender, positive bowel sounds, no peritoneal findings. Extremities: Moving all fours, no tenderness. Normal capillary refill. Skin: No rash or lesions neurologically: Alert and oriented ?3, cranial nerves grossly intact, strength, sensation, reflexes intact. Cerebellar function intact. Gait is steady. DIAGNOSTIC RESULTS No orders to display ED BEDSIDE ULTRASOUND: Performed by ED Physician - none LABS: Labs Reviewed - No data to display All other labs were within normal range or not returned as of thisdictation. EMERGENCYDEPARTMENT COURSE and DIFFERENTIAL DIAGNOSIS/MDM: Vitals: Vitals: 04/12/20 0001 04/12/20 0002 BP: 115/66 Pulse: 77 78 Resp: 16 Temp: 98.2 ?F (36.8 ?C) TempSrc: Temporal Temporal SpO2: 92% 94% Weight: 77.6 kg (171 lb) ED course?I do not believe this is meningitis or subarachnoid hemorrhage. She will be treated with Imitrex and Zofran. Sent home on Zofran. Continue her current medications. Do not believe CT is needed. Follow-up with her primary care physician in 1 week. Return here if any problems or concerns. MDM CRITICAL CARE TIME Total Critical Care time was 0 minutes, excluding separately reportable procedures. There was a high probability of clinically significant/life threatening deterioration in the patient's condition which required my urgentintervention. CONSULTS: None PROCEDURES: Unless otherwise noted below, none Procedures IMPRESSION 1. Other migraine without status migrainosus, not intractable DISPOSITION/PLAN DISPOSITION Decision To Discharge 04/12/2020 01:04:01 AM PATIENT REFERRED TO: Your primary care physician In 1 week For follow-up care DISCHARGE MEDICATIONS: New Prescriptions ONDANSETRON (ZOFRAN ODT) 4 MG DISINTEGRATING TABLET Take 1 tablet by mouth every 8 hours as needed for Nausea (Comment: Please notethis report has been produced using speech recognition software and may contain errors related to that system including errors in grammar, punctuation, and spelling, as well as words and phrases that may be inappropriate.If there is any questions or concerns please feel free to contact the dictating provider for clarification). Octavio Ruiz MD (electronically signed) Attending Emergency Physician Octavio Ruiz MD 04/12/20 0104 [facility] ED Provider Noteon 0 ED Provider Note [facility] eMERGENCY dEPARTMENT eNCOUnter Pt Name: Malaika Irby Birthdate 1970 Date of evaluation: 11/02/2019 Provider: JOSE HUTCHINSON CHIEF COMPLAINT Chief Complaint Patient presents with ? Panic Attack Started to have anxiety around 1540 and took medication Sertraline and the meds are not helping. Pt stated nothing provoked the anxiety. 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 HISTORY OF PRESENT ILLNESS (Location/Symptom, Timing/Onset,Context/Se tting, Quality, Duration, Modifying Factors, Severity) Note limiting factors. HPI I did don an N95 mask and gloves during my interactions with this patient. Malaika Irby is a 48 y.o. female who presents to the emergency department with a history of anxiety and multiple personalities. The patient's roommate said the patient was having an anxiety attack earlier. She took her sertraline and Clonopin with no relief. Her roommate states that the patient gets very panicky she reverts to her 2-year-old personality. The patient and her roommate states that the patient has never had any suicide or homicidal ideations. Nursing Notes were reviewed. REVIEW OF SYSTEMS (2+ for4; 10+ for level 5) Review of Systems Constitutional: Negative for chills, diaphoresis and fever. HENT: Negative for congestion, ear pain, facial swelling, rhinorrhea and sore throat. Eyes: Negative for photophobia, pain and visual disturbance. Respiratory: Negative for cough, chest tightness, shortness of breath and wheezing. Cardiovascular: Negative for chest pain and leg swelling. Gastrointestinal: Negative for abdominal pain, constipation, diarrhea, nausea and vomiting. Genitourinary: Negative for difficulty urinating, dysuria, flank pain, frequency, hematuria and urgency. Musculoskeletal: Negative for arthralgias, back pain, myalgias and neck pain. Skin: Negative for rash. Neurological: Negative for dizziness and headaches. Psychiatric/Behavioral: Negative for suicidal ideas. PAST MEDICAL HISTORY Past Medical History: Diagnosis Date ? Anxiety ? Arthritis ? Cancer (HCC) ? Carpal tunnel syndrome ? Fibromyalgia ? Pseudoseizures ? PTSD (post-traumatic stress disorder) ? Scoliosis SURGICALHISTORY Past Surgical History: Procedure Laterality Date ? SECTION ? HYSTERECTOMY CURRENT MEDICATIONS Previous Medications ASPIRIN 81 MG CHEWABLE TABLET Take 81 mg by mouth daily BUSPIRONE (BUSPAR) 15 MG TABLET Take 15 mg by mouth 3 times daily CLONAZEPAM (KLONOPIN) 0.5 MG TABLET Take 0.5 mg by mouth 2 times daily as needed. MIRTAZAPINE (REMERON) 15 MG TABLET Take 15 mg by mouth nightly ONDANSETRON (ZOFRAN ODT) 4 MG DISINTEGRATING TABLET Take 1 tablet by mouth every 8 hours as needed for Nausea or Vomiting ROPINIROLE (REQUIP) 0.5 MG TABLET Take 0.5 mg by mouth 3 times daily SERTRALINE (ZOLOFT) 50 MG TABLET Take 50 mg by mouth daily Bactrim [sulfamethoxazole-trime thoprim]; Demerol hcl [meperidine]; Dilaudid [hydromorphone hcl]; Effexor xr [venlafaxine hcl]; Flexeril [cyclobenzaprine]; Gabapentin; Lexapro [escitalopram oxalate]; Naproxen; Pexeva [paroxetine]; Seroquel xr [quetiapine fumarate er]; and Vistaril [hydroxyzine hcl] FAMILY HISTORY History reviewed. No pertinent family history. SOCIAL HISTORY Social History Socioeconomic History ? Marital status: Spouse name: None ? Number of children: None ? Years of education: None ? Highest education level: None Occupational History ? None Social Needs ? Financial resource strain: None ? Food insecurity Worry: None Inability: None ? Transportation needs Medical: None Non-medical: None Tobacco Use ? Smoking status: Current Every Day Smoker Types: Pipe ? Smokeless tobacco: Never Used Substance and Sexual Activity ? Alcohol use: Not Currently ? Drug use: Never ? Sexual activity: Yes Lifestyle ? Physical activity Days per week: None Minutes per session: None ? Stress: None Relationships ? Social connections Talks on phone: None Gets together: None Attends synagogue service: None Active member of club or organization: None Attends meetings of clubs or organizations: None Relationship status: None ? Intimate partner violence Fear of current or ex partner: None Emotionally abused: None Physically abused: None Forced sexual activity: None Other Topics Concern ? None Social History Narrative ? None SCREENINGS @FLOW([id number])@ PHYSICAL EXAM (5+ for level 4, 8+ for level 5) ED Triage Vitals [11/02/19 1804] BP Temp Temp Source Pulse Resp SpO2 Height Weight 119/78 97.4 ?F (36.3 ?C) Temporal 88 20 97 % -- 156 lb (70.8 kg) Physical Exam Vitals signs and nursing note reviewed. Constitutional: General: She is not in acute distress. Appearance: She is well-developed. She is not diaphoretic. HENT: Head: Normocephalic. Eyes: Conjunctiva/sclera: Conjunctivae normal. Neck: Musculoskeletal: Normal range of motion and neck supple. Cardiovascular: Rate and Rhythm: Normal rate and regular rhythm. Heart sounds: No murmur. No friction rub. No gallop. Pulmonary: Effort: Pulmonary effort is normal. Breath sounds: Normal breath sounds. No wheezing or rales. Musculoskeletal: Normal range of motion. Skin: General: Skin is warm and dry. Findings: No rash. Neurological: Mental Status: She is alert and oriented to person, place, and time. Psychiatric: Mood and Affect: Mood normal. Behavior: Behavior normal. Thought Content: Thought content normal. Judgment: Judgment normal. Comments: The patient answers all questions appropriately however she speaks to me with a childlike voice as she is clutching a yohan bear. DIAGNOSTIC RESULTS EKG (Per Emergency Physician): RADIOLOGY (Per EmergencyPhysician): Interpretation per the Radiologist below, if available at the time of this note: No results found. : Labs Reviewed - No data to display All other labs were within normal range or not returned as of this dictation. EMERGENCY DEPARTMENT COURSE and DIFFERENTIALDIAGNOSIS/M DM: Vitals: Vitals: 11/02/19 1804 BP: 119/78 Pulse: 88 Resp: 20 Temp: 97.4 ?F (36.3 ?C) TempSrc: Temporal SpO2: 97% Weight: 70.8 kg (156 lb) Medications LORazepam (ATIVAN) tablet 1 mg (1 mg Oral Given 11/02/19 1844) MDM. The patient is not homicidal or suicidal. She has a history of anxiety and multiple personalities. She appears physically well and her vital signs are stable. I will treat her with Ativan 0.5 mg p.o. and discharge her home to the care of her roommate and caregiver. She is advised to rest. She is to follow-up with community support services as well as her family physician at the [facility]. She is to continue her current medications as directed. She can return should signs and symptoms worsen in anyway or any other concerns develop. The patient and friend expressed an understanding of verbal instructions and had no further questions at the time of discharge. This patient was seen by myself, within my scope of practice, with the Emergency Department physician available for consultation at all times if needed. CONSULTS: None PROCEDURES: Unless otherwise noted below, none Procedures FINAL IMPRESSION 1. Anxiety state DISPOSITION/PLAN DISPOSITION Decision To Discharge 11/02/2019 06:32:38 PM PATIENT REFERRED TO: [address] [address] Schedule an appointment as soon as possible for a visit Your doctor Schedule an appointment as soon as possible for a visit in 3 days DISCHARGE MEDICATIONS: New Prescriptions No medications on file (Please note: Portions of this note were completed with a voice recognition program. Efforts were made to edit thedictations but occasionally words and phrases are mis-transcribed.) Form [id number] JOSE HUTCHINSON (electronically signed) Emergency Medicine Provider JOSE Hutchinson 11/02/19 1904 Normal [facility] SARS-CoV-2 by PCRon 10-30-19 20 SARS-CoV-2 by PCR Not Detected Normal [facility] Comment on above: Result Comment: INTE RPRETIVE INFORMATION: SARS-CoV-2 (COVID-19) by [facility] This test should be ordered for the detection of the 2019 novel coronavirus SARS-CoV-2 in individuals who meet SARS-CoV-2 clinical and/or epidemiological criteria. The Coronavirus SARS-CoV-2 (COVID-19) by nucleic acid amplification test is for in vitro diagnostic use under the FDA Emergency Use Authorization (EUA) for US laboratories certified under CLIA to perform high complexity tests. This test has not been FDA cleared or approved. In compliance with this authorization, please visit [email or web address] for more information and to access the applicable information sheets. Not Detected results do not rule out the presence of PCR inhibitors in the patient specimen or assay specific nucleic acid in concentrations below the level of detection by the assay. Detected results are indicative of the presence of SARS-CoV-2 RNA. Due to the complexity of nucleic acid amplification methodologies, there may be a risk of false positive results. Clinical correlation with patient history and other diagnostic information is necessary to determine patient infection status. Reliable results are dependent on adequate specimen collection, transport, storage, and handling. Performed by [facility], [address] [place] [id number] [email or web address], Geneva Dotson MD - Lab. Director Performed By: #### C OVAO #### The performing lab is in the report. SARS-CoV-2 Source Not Provided Normal [facility] Comment on above: Result Comment: Spec imen source was not provided. Please refer to the [employer] Laboratory Test Directory for validated specimen source information: http://www.[employer]/testing. Interpret results with caution. Performed By: #### C OVAO #### The performing lab is in the report. CT Head WO Contraston 2019 Bal[place]inder, [facility] Incoming Radiology Results From [facility] - 10/26/2019 6:56 PM EDT Patient Name: MALAIKA IRBY ---CT--- Exam Date/Time 10/26/2019 18:49:[address] Head or Brain w/o Contrast Ordering Physician AMELIA KIMBALL, SHANTI Garcia Accession Number [id number] CPT4 Codes 84718 () Reason For Exam Headache Report CT HEAD WITHOUT CONTRAST: INDICATION: Headache COMPARISON: None. Unenhanced CT images of the head from skull base to vertex were obtained. The images are reviewed in the axial, sagittal and coronal planes. The ventricles and sulci are within normal limits for the patient's age. There is no evidence of hemorrhage, mass or large acute infarct. There is no mass or significant shift of the midline structures. There are no extraaxial or posterior fossa masses or fluid collections. The hypothalamic and parasellar regions are unremarkable. The paranasal sinuses are clear. IMPRESSION: Negative CT examination of the brain. Report Dictated on Workstation: [facility] --- Final --- Dictating Physician: DO RODRIGUEZ ALFRED Signed Date and Time: 10/26/2019 6:55 pm Signed by: DO RODRIGUEZ ALFRED Transcribed Date and Time: 10/26/2019 6:56 [place] Patient Name: MALAIKA IRBY ---CT--- Exam Date/Time 10/26/2019 18:49:[address] Head or Brain w/o Contrast Ordering Physician AMELIA KIMBALL AMY L Accession Number [id number] CPT4 Codes 47112 () Reason For Exam Headache Report CT HEAD WITHOUT CONTRAST: INDICATION: Headache COMPARISON: None. Unenhanced CT images of the head from skull base to vertex were obtained. The images are reviewed in the axial, sagittal and coronal planes. The ventricles and sulci are within normal limits for the patient's age. There is no evidence of hemorrhage, mass or large acute infarct. There is no mass or significant shift of the midline structures. There are no extraaxial or posterior fossa masses or fluid collections. The hypothalamic and parasellar regions are unremarkable. The paranasal sinuses are clear. IMPRESSION: Negative CT examination of the brain. Report Dictated on Workstation: [facility] --- Final --- Dictating Physician: DO RODRIGUEZ ALFRED Signed Date and Time: 10/26/2019 6:55 pm Signed by: DO RODRIGUEZ ALFRED Transcribed Date and Time: 10/26/2019 6:56 [place], [place] CT Head or Brain w/o Magda nathan 10-26-2019 CT Head or Brain w/o Contrast Patient Name: MALAIKA IRBY CT Exam Date/Time 10/26/2019 18:49:[address] Head or Brain w/o Contrast Ordering Physician AMELIA KIMBALL AMY L Accession Number [id number] CPT4 Codes 96467 () Reason For Exam Headache Report CT HEAD WITHOUT CONTRAST: INDICATION: Headache COMPARISON: None. Unenhanced CT images of the head from skull base to vertex were obtained. The images are reviewed in the axial, sagittal and coronal planes. The ventricles and sulci are within normal limits for the patient's age. There is no evidence of hemorrhage, mass or large acute infarct. There is no mass or significant shift of the midline structures. There are no extraaxial or posterior fossa masses or fluid collections. The hypothalamic and parasellar regions are unremarkable. The paranasal sinuses are clear. IMPRESSION: Negative CT examination of the brain. Report Dictated on Workstation: [id number] Final Dictating Physician: DO RODRIGUEZ ALFRED Signed Date and Time: 10/26/2019 6:55 pm Signed by: DO RODRIGUEZ ALFRED Transcribed Date and Time: 10/26/2019 6:56 Normal [facility] Comp Metabolic Panelon 10-25 ALP [Catalytic activity/Vol] 58 U/L Normal 38-126 [place], [place] Comment on above: Performed By: #### H EMDF CMP3 #### [facility] [address] [place] [address] ALT [Catalytic activity/Vol] 19 U/L Normal 0-34 [place], [place] Comment on above: The ALT test is perf ormed by an updated assay method. Please note that the reference intervals have been changed and are now sex specific. Result Comment: The ALT test is performed by an updated assay method. Please note that the reference intervals have been changed and are now sex specific. Performed By: #### H EMDF, CMP3 #### [facility] [address] [place] [address] Calcium [Mass/Vol] 9.1 mg/dL Normal 8.4-10.4 [place], [place] Comment on above: Performed By: #### H EMDF, CMP3 #### [facility] [address] [place] [address] Glucose [Mass/Vol] 115 mg/dL High 70-100 [place], [place] Comment on above: Performed By: #### H EMDF, CMP3 #### [facility] [address] [place] [address] Anion gap [Moles/Vol] 8 Normal [facility] Comment on above: Performed By: #### H EMDF, CMP3 #### [facility] [address] [place] [address] AST [Catalytic activity/Vol] 30 U/L Normal 15-46 [place], [place] Comment on above: Performed By: #### H EMDF, CMP3 #### [facility] [address] [place] [address] Bilirubin [Mass/Vol] 0.8 mg/dL Normal 0.2-1.3 [facility] Comment on above: Performed By: #### H EMDF, CMP3 #### [facility] [address] [place] [address] CO2 [Moles/Vol] 27 mmol/L Normal 22-30 [place], [place] Comment on above: Performed By: #### H EMDF, CMP3 #### [facility] [address] [place] [address] Creatinine [Mass/Vol] 0.87 mg/dL Normal 0.52-1.25 [place], [place] Comment on above: Performed By: #### H EMDF, CMP3 #### [facility] [address] [place] [address] GFR/1.73 sq M predicted among blacks MDRD (S/P/Bld) [Vol rate/Area] 89.5 mL/min/{1.73_m2} Normal >60 [place], [place] Comment on above: Performed By: #### H EMDF, CMP3 #### [facility] [address] [place] [address] GFR/1.73 sq M predicted among non-blacks MDRD (S/P/Bld) [Vol rate/Area] 77.2 mL/min/{1.73_m2} Normal >60 [facility] Comment on above: Result Comment: KDIG O guidelines provide the following GFR categories: Stage GFR(ml/min/1.73 m2) Terms G1 >=90 Normal or high G2 60-89 Mildly decreased* G3a 45-59 Mildly to moderately decreased G3b 30-44 Moderately to severely decreased G4 15-29 Severely decreased G5 <15 Kidney failure *Relative to young adult level. In the absence of evidence of kidney damage, neither GFR category G1 nor G2 fulfill the criteria for CKD. The CKD-EPI equation is validated in individuals 18 years of age and older. Currently the best equation for estimating glomerular filtration rate (GFR) from serum creatinine in children is the Bedside Butler equation. It is less accurate in patients with extremes of muscle mass, restriction of dietary protein, ingestion of creatine, extra-renal metabolism of creatinine, or treatment with medications that affect renal tubular creatinine secretion. Performed By: #### H EMDF, CMP3 #### [facility] [address] [place] [address] Protein [Mass/Vol] 7.0 g/dL Normal 6.3-8.2 [place], [place] Comment on above: Performed By: #### H EMDF, CMP3 #### [facility] [address] [place] [address] Urea nitrogen [Mass/Vol] 13 mg/dL Normal 7-20 [place], [place] Comment on above: Performed By: #### H EMDF, CMP3 #### [facility] [address] [place] [address] Potassium [Moles/Vol] 4.1 mmol/L Normal 3.5-5.1 [place], [place] Comment on above: Performed By: #### H EMDF, CMP3 #### [facility] [address] [place] [address] Sodium [Moles/Vol] 138 mmol/L Normal 135-145 [place], [place] Comment on above: Performed By: #### H EMDF, CMP3 #### [facility] [address] [place] [address] Albumin [Mass/Vol] 4.1 g/dL Normal 3.5-5.0 [place] Comment on above: Performed By: #### H EMDF, CMP3 #### [facility] [address] [place] [address] Chloride [Moles/Vol] 103 mmol/L Normal 98-107 [place], [place] Comment on above: Performed By: #### H EMDF, CMP3 #### [facility] [address] [place] [address] Complete Urinalysison 2019 Appearance (U) Clear Normal Clear [facility] Comment on above: Result Comment: . Performed By: #### C UA2 #### [facility] [address] [place] [address] Bacteria LM.HPF (Urine sed) [#/Area] Few Abnormal Negative [facility] Comment on above: Result Comment: . Performed By: #### C UA2 #### [facility] [address] [place] [address] Bilirubin,Urine Negative Normal Negative [facility] Comment on above: Result Comment: . Performed By: #### C UA2 #### [facility] [address] [place] [address] Color (U) Light-Yellow Normal Lt. Yellow [facility] Comment on above: Result Comment: . Performed By: #### C UA2 #### [facility] [address] [place] [address] Glucose Ql (U) Normal Normal Normal (<70) [facility] Comment on above: Result Comment: . Performed By: #### C UA2 #### [facility] [address] [place] [address] Ketone,Urine Negative Normal Negative [facility] Comment on above: Result Comment: . Performed By: #### C UA2 #### [facility] [address] [place] [address] Leukocytes,Urine Negative Normal Negative [facility] Comment on above: Result Comment: . Performed By: #### C UA2 #### [facility] [address] [place] [address] Mucous Threads Few Normal Negative [facility] Comment on above: Result Comment: . Performed By: #### C UA2 #### [facility] [address] [place] [address] Nitrites,Urine Negative Normal Negative [facility] Comment on above: Result Comment: . Performed By: #### C UA2 #### [facility] [address] [place] [address] Occult Blood,Urine Negative Normal Negative [facility] Comment on above: Result Comment: . Performed By: #### C UA2 #### [facility] [address] [place] [address] pH (U) 7.5 Normal 5.0-8.0 [facility] Comment on above: Result Comment: . Performed By: #### C UA2 #### [facility] [address] [place] [address] Protein (U) [Mass/Vol] 10 mg/dL Abnormal Negative [facility] Comment on above: Result Comment: . Performed By: #### C UA2 #### [facility] [address] [place] [address] RBC LM.HPF (Urine sed) [#/Area] 0 - 2 Normal 0-2 [facility] Comment on above: Result Comment: . Performed By: #### C UA2 #### [facility] [address] [place] [address] Specific [place],Urine 1.022 Normal 1.005 - 1.030 [facility] Comment on above: Result Comment: . Performed By: #### C UA2 #### [facility] [address] [place] [address] Squamous Epithelial 3 - 5 Normal 3-5 [facility] Comment on above: Result Comment: . Performed By: #### C UA2 #### [facility] [address] [place] [address] Urobilinogen,Urine 3 mg/dL Abnormal Normal (0-1) [facility] Comment on above: Result Comment: . Performed By: #### C UA2 #### [facility] [address] [place] [address] WBC LM.HPF (Urine sed) [#/Area] 0 - 2 Normal 0-5 [facility] Comment on above: Result Comment: . Performed By: #### C UA2 #### [facility] [address] [place] [address] Comprehensive Metabolic Pane aleksandra 10-26-2019 Anion gap [Moles/Vol] 8 mmol/L [place], [place] Bilirubin Ql (U) 0.8 mg/dL 0.2 - 1.3 mg/dL [place], [place] EGFR IF NonAfrican [place] 77.2 mL/min >60 [place], [place] Comment on above: KDIGO guidelines pro vide the following GFR categories: Stage GFR(ml/min/1.73 m2) Terms G1 >=90 Normal or high G2 60-89 Mildly decreased* G3a 45-59 Mildly to moderately decreased G3b 30-44 Moderately to severely decreased G4 15-29 Severely decreased G5 <15 Kidney failure *Relative to young adult level. In the absence of evidence of kidney damage, neither GFR category G1 nor G2 fulfill the criteria for CKD. The CKD-EPI equation is validated in individuals 18 years of age and older. Currently the best equation for estimating glomerular filtration rate (GFR) from serum creatinine in children is the Bedside Butler equation. It is less accurate in patients with extremes of muscle mass, restriction of dietary protein, ingestion of creatine, extra-renal metabolism of creatinine, or treatment with medications that affect renal tubular creatinine secretion. ED Provider Noteon 0 ED Provider Note Emergency Department Encounter [facility] ED Patient: Malaika Irby : 1970 Date of Evaluation: 10/26/2019 ED Supervising Physician: Jose J Nevarez MD I independently examined and evaluated Malaika Irby. I wore a N95 mask for the entirety of this patient encounter. In brief, Malaika Irby is a 48 y.o. female that presents to the emergency department with a complaint of nausea, diarrhea, weakness and fatigue. She is concerned because her father of Covid-19 last month and she was exposed. Denies chest pain. Denies shortness of breath. Focused exam: She is awake and alert. She is nontoxic. Lungs clear to auscultation. Heart regular rate and rhythm. Abdomen soft nondistended without focal tenderness. Extremities nontender with equal distal pulses Brief ED course/MDM: Patient does not have severe dehydration. There is no hypoxia. I do feel patient can follow-up as an outpatient. All diagnostic, treatment, and disposition decisions were made by myself in conjunction with the ERICK. For all further details of the patient's emergency department visit, please see their documentation. (Please note that portions of this note may have been completed with a voice recognition program. Efforts were made to edit the dictations but occasionally words are mis-transcribed.) Jose J Nevarez MD [employer] Jose J Nevarez MD 10/26/19 2207 [facility] ED Provider Note [facility] ED eMERGENCY dEPARTMENT eNCOUnter Pt Name: Malaika Irby Birthdate 1970 Date of evaluation: 10/26/2019 Provider: JOSE HUTCHINSON CHIEF COMPLAINT Chief Complaint Patient presents with ? Dizziness ? Nausea HISTORY OF PRESENT ILLNESS (Location/Symptom, Timing/Onset,Context/Se tting, Quality, Duration, Modifying Factors, Severity) Note limiting factors. HPII did don an N95 mask, eye shield, gloves during my interactions with this patient. This patient was seen in conjunction with Dr. Nevarez U also interviewed and evaluated the patient at bedside. Malaika Irby is a 48 y.o. female who presents to the emergency department stating that she has not been feeling well for the past nearly 2 weeks. She is been fatigued and dizzy at times. She has had nausea. She states her appetite as been poor. She states her father of Covid 19 back on October 03. She has been self quarantining. The patient states she is also prone to urinary tract infections. Also states that she is very sensitive to medications and she took all of her medications at once today because she could not remember she took them or not due to a history of long-term and short-term memory problems. Patient states she was also started recently on a steroid patch. Nursing Notes were reviewed. REVIEW OF SYSTEMS (2+ for4; 10+ for level 5) Review of Systems Constitutional: Positive for activity change, appetite change and fatigue. Negative for chills, diaphoresis and fever. HENT: Negative for congestion, ear pain, facial swelling, rhinorrhea and sore throat. Eyes: Negative for photophobia, pain and visual disturbance. Respiratory: Negative for cough, chest tightness, shortness of breath and wheezing. Cardiovascular: Negative for chest pain and leg swelling. Gastrointestinal: Positive for nausea. Negative for abdominal pain, constipation, diarrhea and vomiting. Genitourinary: Negative for difficulty urinating, dysuria, flank pain, frequency, hematuria and urgency. Musculoskeletal: Negative for arthralgias, back pain, myalgias and neck pain. Skin: Negative for rash. Neurological: Positive for light-headedness and headaches. Negative for dizziness. Psychiatric/Behavioral: Negative for suicidal ideas. PAST MEDICAL HISTORY History reviewed. No pertinent past medical history. SURGICALHISTORY History reviewed. No pertinent surgical history. CURRENT MEDICATIONS Discharge Medication List as of 10/26/2019 10:08 PM CONTINUE these medications which have NOT CHANGED Details busPIRone (BUSPAR) 15 MG tablet Take 15 mg by mouth 3 times dailyHistorical Med mirtazapine (REMERON) 15 MG tablet Take 15 mg by mouth nightlyHistorical Med rOPINIRole (REQUIP) 0.5 MG tablet Take 0.5 mg by mouth 3 times dailyHistorical Med aspirin 81 MG chewable tablet Take 81 mg by mouth dailyHistorical Med Bactrim [sulfamethoxazole-trime thoprim]; Demerol hcl [meperidine]; Dilaudid [hydromorphone hcl]; Effexor xr [venlafaxine hcl]; Flexeril [cyclobenzaprine]; Gabapentin; Lexapro [escitalopram oxalate]; Naproxen; Pexeva [paroxetine]; Seroquel xr [quetiapine fumarate er]; and Vistaril [hydroxyzine hcl] FAMILY HISTORY History reviewed. No pertinent family history. SOCIAL HISTORY Social History Socioeconomic History ? Marital status: Spouse name: None ? Number of children: None ? Years of education: None ? Highest education level: None Occupational History ? None Social Needs ? Financial resource strain: None ? Food insecurity Worry: None Inability: None ? Transportation needs Medical: None Non-medical: None Tobacco Use ? Smoking status: Current Every Day Smoker Types: Pipe ? Smokeless tobacco: Never Used Substance and Sexual Activity ? Alcohol use: Not Currently ? Drug use: Never ? Sexual activity: Yes Lifestyle ? Physical activity Days per week: None Minutes per session: None ? Stress: None Relationships ? Social connections Talks on phone: None Gets together: None Attends synagogue service: None Active member of club or organization: None Attends meetings of clubs or organizations: None Relationship status: None ? Intimate partner violence Fear of current or ex partner: None Emotionally abused: None Physically abused: None Forced sexual activity: None Other Topics Concern ? None Social History Narrative ? None SCREENINGS @FLOW([id number])@ PHYSICAL EXAM (5+ for level 4, 8+ for level 5) ED Triage Vitals [10/26/19 1734] BP Temp Temp Source Pulse Resp SpO2 Height Weight 115/69 97.9 ?F (36.6 ?C) Oral 65 20 98 % -- -- Physical Exam Vitals signs and nursing note reviewed. Constitutional: General: She is not in acute distress. Appearance: Normal appearance. She is well-developed. She is not diaphoretic. HENT: Head: Normocephalic and atraumatic. Nose: Nose normal. Mouth/Throat: Mouth: Mucous membranes are moist. Eyes: Conjunctiva/sclera: Conjunctivae normal. Neck: Musculoskeletal: Normal range of motion and neck supple. Cardiovascular: Rate and Rhythm: Normal rate and regular rhythm. Heart sounds: No murmur. No friction rub. No gallop. Pulmonary: Effort: Pulmonary effort is normal. Breath sounds: Normal breath sounds. No wheezing or rales. Abdominal: General: Bowel sounds are normal. There is no distension. Palpations: Abdomen is soft. Tenderness: There is no abdominal tenderness. Musculoskeletal: Normal range of motion. Skin: General: Skin is warm and dry. Findings: No rash. Neurological: Mental Status: She is alert and oriented to person, place, and time. Psychiatric: Mood and Affect: Mood normal. Behavior: Behavior normal. Thought Content: Thought content normal. Judgment: Judgment normal. DIAGNOSTIC RESULTS EKG (Per Emergency Physician): RADIOLOGY (Per EmergencyPhysician): Interpretation per the Radiologist below, if available at the time of this note: Ct Head Wo Contrast Result Date: 10/26/2019 Patient Name: MALAIKA IRBY ---CT--- Exam Date/Time 10/26/2019 18:49:[address] Head or Brain w/o Contrast Ordering Physician AMELIA KIMBALL, SHANTI Garcia Accession Number [id number] CPT4 Codes 18912 () Reason For Exam Headache Report CT HEAD WITHOUT CONTRAST: INDICATION: Headache COMPARISON: None. Unenhanced CT images of the head from skull base to vertex were obtained. The images are reviewed in the axial, sagittal and coronal planes. The ventricles and sulci are within normal limits for the patient's age. There is no evidence of hemorrhage, mass or large acute infarct. There is no mass or significant shift of the midline structures. There are no extraaxial or posterior fossa masses or fluid collections. The hypothalamic and parasellar regions are unremarkable. The paranasal sinuses are clear. IMPRESSION: Negative CT examination of the brain. Report Dictated on Workstation: [facility] --- Final --- Dictating Physician: DO RODRIGUEZ ALFRED Signed Date and Time: 10/26/2019 6:55 pm Signed by: DO RODRIGUEZ ALFRED Transcribed Date and Time: 10/26/2019 6:56 : Labs Reviewed COMPREHENSIVE METABOLIC PANEL - Abnormal; Notable for the following components: Result Value Glucose 115 (*) All other components within normal limits Narrative: Test Performed by [facility], [address] [place], [place] [address] URINALYSIS - Abnormal; Notable for the following components: Total Protein, Urine 10 (*) Urobilinogen, Urine 3 (*) Bacteria, UA Few (*) All other components within normal limits Narrative: [facility], [address] [place], [place] [address] CBC WITH AUTO DIFFERENTIAL Narrative: Test Performed by [facility], [address] [place], [place] [address] COVID-19 Narrative: [id number] All other labs were within normal range or not returned as of this dictation. EMERGENCY DEPARTMENT COURSE and DIFFERENTIALDIAGNOSIS/M DM: Vitals: Vitals: 10/26/19 1734 10/26/19 2050 10/26/19 2218 10/26/19 2231 BP: 115/69 110/63 (!) 72/61 100/65 Pulse: 65 61 74 67 Resp: 20 18 Temp: 97.9 ?F (36.6 ?C) TempSrc: Oral SpO2: 98% 99% 100% 99% Medications - No data to display MDM. Laboratory and imaging studies were obtained and reviewed. The patient appears to resting comfortably and her vital signs are stable. We do not feel that admission to the hospital is warranted at this time. The patient's symptoms remained very nonspecific. She will be discharged to follow-up with her family physician in the next 3 days. She is to push fluids and rest. She will be given a prescription for Zofran. She is to return should signs and symptoms worsen in any way or any other concerns develop. The patient expressed an understanding of verbal instructions and she had no further questions at the time of discharge. CONSULTS: None PROCEDURES: Unless otherwise noted below, none Procedures FINAL IMPRESSION 1. Lightheadedness 2. Nonintractable headache, unspecified chronicity pattern, unspecified headache type 3. Fatigue, unspecified type DISPOSITION/PLAN DISPOSITION Decision To Discharge 10/26/2019 10:01:11 PM PATIENT REFERRED TO: Your doctor Schedule an appointment as soon as possible for a visit in 3 days DISCHARGE MEDICATIONS: Discharge Medication List as of 10/26/2019 10:08 PM START taking these medications Details ondansetron (ZOFRAN ODT) 4 MG disintegrating tablet Take 1 tablet by mouth every 8 hours as needed for Nausea or Vomiting, Disp-12 tablet,R-0Print (Please note: Portions of this note were completed with a voice recognition program. Efforts were made to edit thedictations but occasionally words and phrases are mis-transcribed.) Form [id number] JOSE HUTCHINSON (electronically signed) Emergency Medicine Provider JOSE Hutchinson 10/27/19 0020 Normal [facility] Hemogram (CBC) w/Auto Diffon 10-26-2019 Absolute Baso # 0.0 10*3/uL 0 - 0.2 10*3/uL [place], [place] Absolute Neut # 3.6 10*3/uL 1.8 - 7 10*3/uL [place] Basophils/100 WBC (Bld) 0.7 % 0 - 2 % [place] Eosinophils (Bld) [#/Vol] 0.1 10*3/uL 0 - 0.5 10*3/uL [place] Eosinophils/100 WBC (Bld) 1.1 % 1 - 6 % [place] Erythrocyte distribution width (RBC) [Ratio] 13.4 % 11.5 - 14.5 % [place] Granulocytes/100 WBC (Bld) 67.6 % 40 - 80 % [place] Hematocrit (Bld) [Volume fraction] 41.8 % 35 - 47 % [place] Hemoglobin (Bld) [Mass/Vol] 13.9 g/dL 11.7 - 16 g/dL [place] Lymphocytes (Bld) [#/Vol] 1.4 10*3/uL 1 - 4.3 10*3/uL [place] Lymphocytes/100 WBC (Bld) 25.7 % 20 - 40 % [place] MCH (RBC) [Entitic mass] 28.0 pg 26 - 34 pg [place] MCHC (RBC) [Mass/Vol] 33.3 % 32 - 36 % [place], [place] MCV (RBC) [Entitic vol] 84.3 fL 79 - 98 fL [place], [place] Monocytes (Bld) [#/Vol] 0.3 10*3/uL 0 - 0.8 10*3/uL [place] Monocytes/100 WBC (Bld) 4.9 % 2 - 10 % [place] Platelet mean volume (Bld) [Entitic vol] 9.0 fL 7.4 - 10.4 fL [place] Platelets (Bld) [#/Vol] 199 10*3/uL 140 - 440 10*3/uL [place] RBC (Bld) [#/Vol] 4.96 10*6/uL 3.8 - 5.2 10*6/uL [place] WBC (Bld) [#/Vol] 5.4 10*3/uL 3.6 - 10.7 10*3/uL [place] Test Performed by [facility], [address] [place] [address] [place] Hemogram w/ Autodiffon 10-25 Abs Baso Cnt 0.0 10*3/uL Normal 0.0-0.2 [facility] Comment on above: Performed By: #### H THERESA CMP3 #### [facility] [address] [place] [address] Abs Neutrophile Cnt 3.6 10*3/uL Normal 1.8-7.0 [facility] Comment on above: Performed By: #### H EMDF CMP3 #### [facility] [address] [place] [address] Basophils/100 WBC (Bld) 0.7 % Normal 0.0-2.0 [facility] Comment on above: Performed By: #### H EMDF CMP3 #### [facility] [address] [place] [address] Eosinophils (Bld) [#/Vol] 0.1 10*3/uL Normal 0.0-0.5 [facility] Comment on above: Performed By: #### H EMDF CMP3 #### [facility] [address] [place] [address] Eosinophils/100 WBC (Bld) 1.1 % Normal 1.0-6.0 [facility] Comment on above: Performed By: #### H THERESA CMP3 #### [facility] [address] [place] [address] Erythrocyte distribution width (RBC) [Ratio] 13.4 % Normal 11.5-14.5 [facility] Comment on above: Performed By: #### H EMDAparna CMP3 #### [facility] [address] [place] [address] Granulocytes/100 WBC (Bld) 67.6 % Normal 40.0-80.0 [facility] Comment on above: Performed By: #### H THERESA CMP3 #### [facility] [address] [place] [address] Hematocrit (Bld) [Volume fraction] 41.8 % Normal 35.0-47.0 [facility] Comment on above: Performed By: #### H THERSEA CMP3 #### [facility] [address] [place] [address] Hemoglobin (Bld) [Mass/Vol] 13.9 g/dL Normal 11.7-16.0 [facility] Comment on above: Performed By: #### H THERESA CMP3 #### [facility] [address] [place] [address] Lymphocytes (Bld) [#/Vol] 1.4 10*3/uL Normal 1.0-4.3 [facility] Comment on above: Performed By: #### H EMDAparna CMP3 #### [facility] [address] [place] [address] Lymphocytes/100 WBC (Bld) 25.7 % Normal 20.0-40.0 [facility] Comment on above: Performed By: #### H EMDAparna CMP3 #### [facility] [address] [place] [address] MCH (RBC) [Entitic mass] 28.0 pg Normal 26.0-34.0 [facility] Comment on above: Performed By: #### H THERESA CMP3 #### [facility] [address] [place] [address] MCHC (RBC) [Mass/Vol] 33.3 % Normal 32.0-36.0 [facility] Comment on above: Performed By: #### H THERESA CMP3 #### [facility] [address] [place] [address] MCV (RBC) [Entitic vol] 84.3 fL Normal 79.0-98.0 [facility] Comment on above: Performed By: #### H THERESA CMP3 #### [facility] [address] [place] [address] Monocytes (Bld) [#/Vol] 0.3 10*3/uL Normal 0.0-0.8 [facility] Comment on above: Performed By: #### H THERESA CMP3 #### [facility] [address] [place] [address] Monocytes/100 WBC (Bld) 4.9 % Normal 2.0-10.0 [facility] Comment on above: Performed By: #### H THERESA CMP3 #### [facility] [address] [place] [address] Platelet mean volume (Bld) [Entitic vol] 9.0 fL Normal 7.4-10.4 [facility] Comment on above: Performed By: #### H THERESA CMP3 #### [facility] [address] [place] [address] Platelets (Bld) [#/Vol] 199 10*3/uL Normal 140-440 [facility] Comment on above: Performed By: #### H THERESA CMP3 #### [facility] [address] [place] [address] RBC (Bld) [#/Vol] 4.96 10*6/uL Normal 3.80-5.20 [facility] Comment on above: Performed By: #### H THERESA CMP3 #### [facility] [address] [place] [address] WBC (Bld) [#/Vol] 5.4 10*3/uL Normal 3.6-10.7 [facility] Comment on above: Performed By: #### H THERESA CMP3 #### [facility] [address] [place] [address] Otheron 10-26-2019 Interpretation and review of laboratory results Abnormal [place], [place] Test Performed by [facility], [address], [place] [address] [place], [place] Urinalysison 10-26-2019 Appearance (U) Clear Clear NA [place], [place] Comment on above: . Bacteria, UA Few Abnormal Negative /[HPF] [place], [place] Comment on above: . Bilirubin Urine Negative Negative mg/dL [place] Comment on above: . Color (U) Light-Yellow Lt. Yellow NA [place] Comment on above: . Glucose, Ur Normal Normal (<70) mg/dL [place] Comment on above: . Ketones Ql (U) Negative Negative mg/dL [place] Comment on above: . LEUKOCYTES, UA Negative Negative Carlos/uL [place] Comment on above: . Mucous Threads Few Negative /[LPF] [place] Comment on above: . Nitrite, Urine Negative Negative NA [place], [place] Comment on above: . Occult Blood,Urine Negative Negative mg/dL [place] Comment on above: . pH (U) 7.5 [pH] [place] Comment on above: . Protein (U) [Mass/Vol] 10 mg/dL Abnormal Negative [place], [place] Comment on above: . RBC (U) [#/Vol] 0-2 0 - 2 /[HPF] [place] Comment on above: . Specific [place], Urine 1.022 M [place] Comment on above: . Squam Epithel, UA 3-5 3 - 5 /[HPF] [place] Comment on above: . Urobilinogen, Urine 3 mg/dL Abnormal Normal (0-1) [place] Comment on above: . WBC, UA 0-2 0 - 5 /[HPF] [place] Comment on above: . BMPon 03-15-2019 Anion gap [Moles/Vol] 5 mmol/L Normal 5-16 [facility] Comment on above: Order Comment: Campu s: M Performed By: #### L 500.35688, L500.43558 #### [facility] [address] [place], [place] [id number] Calcium [Mass/Vol] 8.6 mg/dL Normal 8.5-10.1 [facility] Comment on above: Order Comment: Campu s: M Performed By: #### L 500.26392, L500.50035 #### [facility] [address] [place], [place] [id number] Chloride [Moles/Vol] 110 mmol/L High 98-107 [facility] Comment on above: Order Comment: Campu s: M Performed By: #### L 500.58198, L500.56189 #### [facility] [address] [place] [address] CO2 [Moles/Vol] 28 mmol/L Normal 21-32 [facility] Comment on above: Order Comment: Campu s: M Performed By: #### L 500.18779, L500.79566 #### [facility] [address] [place] [address] Creatinine [Mass/Vol] 0.865 mg/dL Normal 0.510-0.950 [facility] Comment on above: Order Comment: Campu s: M Result Comment: Bettina ents receiving either N-Acetylcysteine (NAC) or Metamizole prior to venipuncture, may have falsely depressed results. Performed By: #### L 500.87021, L500.87398 #### [facility] [address] [place] [address] Glucose [Mass/Vol] 102 mg/dL High 70-100 [facility] Comment on above: Order Comment: Campu s: M Result Comment: 70-1 00- Normal Fasting; 100-125 Impaired Fasting; greater than 126 on more than one result- Diabetes. ADA guidelines. Results may be falsely elevated after the administration of Sulfapyridine. Results may be falsely depressed after the administration of Sulfasalazine. Performed By: #### L 500.37560, L500.00944 #### [facility] [address] [place] [address] Potassium [Moles/Vol] 4.2 mmol/L Normal 3.5-5.1 [facility] Comment on above: Order Comment: Campu s: M Performed By: #### L 500.51681, L500.31493 #### [facility] [address] [place] [address] Sodium [Moles/Vol] 143 mmol/L Normal 136-145 [facility] Comment on above: Order Comment: Campu s: M Performed By: #### L 500.43993, L500.39976 #### [facility] [address] [place] [address] Urea nitrogen [Mass/Vol] 9 mg/dL Normal 7-26 [facility] Comment on above: Order Comment: Campu s: M Performed By: #### L 500.28017, L500.47082 #### [facility] [address] [place] [address] Urea nitrogen/Creatinine [Mass ratio] 10 mg/mg Low 15-24 [facility] Comment on above: Order Comment: Campu s: M Performed By: #### L 500.73649, L500.50656 #### [facility] [address] [place] [address] CBC W/DIFFon 03-15-2019 BASO ABS 0.00 K/CU MM Normal 0-0.2 [facility] Comment on above: Order Comment: Campu s: M Performed By: #### L 200.08088 #### [facility] [address] [place] [address] Basophils/100 WBC (Bld) 0.5 % Normal 0-2 M [facility] Comment on above: Order Comment: Campu s: M Performed By: #### L 200.37300 #### [facility] [address] [place] [address] EOS ABS 0.10 K/CU MM Normal 0-0.5 [facility] Comment on above: Order Comment: Campu s: M Performed By: #### L 200.64112 #### [facility] [address] [place] [address] Eosinophils/100 WBC (Bld) 1.2 % Normal 0-5 [facility] Comment on above: Order Comment: Campu s: M Performed By: #### L 200.16780 #### [facility] [address] [place] [address] Erythrocyte distribution width (RBC) [Ratio] 13.4 % Normal 11-14.5 [facility] Comment on above: Order Comment: Campu s: M Performed By: #### L 200.07074 #### [facility] [address] [place] [address] Hematocrit (Bld) [Volume fraction] 38.0 % Normal 35.0-47.0 [facility] Comment on above: Order Comment: Campu s: M Performed By: #### L 200.15935 #### [facility] [address] [place] [address] Hemoglobin (Bld) [Mass/Vol] 12.0 g/dL Normal 11.5-15.5 [facility] Comment on above: Order Comment: Campu s: M Performed By: #### L 200.64902 #### [facility] [address] [place] [address] IMMATR GRAN ABS 0.00 K/CU MM Normal Less than 2 [facility] Comment on above: Order Comment: Campu s: M Performed By: #### L 200.61667 #### [facility] [address] [place] [address] IMMATURE GRAN % 0.2 % Normal Less than 2 [facility] Comment on above: Order Comment: Campu s: M Performed By: #### L 200.50544 #### [facility] [address] [place] [address] Lymphocytes (Bld) [#/Vol] 1.20 K/CU MM Normal 0.9-4.4 [facility] Comment on above: Order Comment: Campu s: M Performed By: #### L 200.76369 #### [facility] [address] [place] [address] Lymphocytes/100 WBC (Bld) 30.1 % Normal 20-40 [facility] Comment on above: Order Comment: Campu s: M Performed By: #### L 200.08630 #### [facility] [address] [place] [address] MCHC (RBC) [Mass/Vol] 31.6 g/dL Low 32.0-36.0 [facility] Comment on above: Order Comment: Campu s: M Performed By: #### L 200.86351 #### [facility] [address] [place] [address] MCV (RBC) [Entitic vol] 89.4 fL Normal 80.0-99.0 [facility] Comment on above: Order Comment: Campu s: M Performed By: #### L 200.20522 #### [facility] [address] [place] [address] MONO ABS 0.20 K/CU MM Normal 0.1-1.1 [facility] Comment on above: Order Comment: Campu s: M Performed By: #### L 200.85419 #### [facility] [address] [place] [address] Monocytes/100 WBC (Bld) 5.9 % Normal 2-10 M [facility] Comment on above: Order Comment: Campu s: M Performed By: #### L 200.66732 #### [facility] [address] [place] [address] NEUTROPHIL ABS 2.50 K/CU MM Normal 2.0-8.3 [facility] Comment on above: Order Comment: Campu s: M Performed By: #### L 200.34348 #### [facility] [address] [place] [address] Neutrophils/100 WBC (Bld) 62.1 % Normal 45-75 [facility] Comment on above: Order Comment: Campu s: M Performed By: #### L 200.45548 #### [facility] [address] [place] [address] Nucleated RBC/100 WBC (Bld) [Ratio] 0.0 % Normal Less than 1 [facility] Comment on above: Order Comment: Campu s: M Performed By: #### L 200.36616 #### [facility] [address] [place] [address] Platelet mean volume (Bld) [Entitic vol] 11.2 fL Normal 9.4-12.4 [facility] Comment on above: Order Comment: Campu s: M Performed By: #### L 200.10677 #### [facility] [address] [place] [address] Platelets (Bld) [#/Vol] 168 K/CU MM Normal 150-450 [facility] Comment on above: Order Comment: Campu s: M Performed By: #### L 200.19366 #### [facility] [address] [place] [address] RBC (Bld) [#/Vol] 4.25 M/CU MM Normal 3.90-5.30 [facility] Comment on above: Order Comment: Campu s: M Performed By: #### L 200.13523 #### [facility] [address] [place] [address] WBC (Bld) [#/Vol] 4.1 K/CUMM Low 4.5-11.0 [facility] Comment on above: Order Comment: Campu s: M Performed By: #### L 200.89090 #### [facility] [address] [place] [address] Rj 03-15-2019 EMERGENCY PHYSICIAN REPORT This is a preliminary report only, as the practitioner review and authentication has not occurred. Normal [facility] ER PHYSICIAN ASSESSMENT RECORDS : Discharge Report Event Time: 03/15/2019 05:30 : FlexChartData Event Time: 03/15/2019 06:00 Status: Signed [facility] Malaika Fong [[id number]] Attending Physician 48 / / 1970 Chart (V2b) Chart created at 03/15/2019 05:23 by Ian Rendon Chart closed at 03/15/2019 05:27 Entry in Emergency Department at 03/15/2019 03:44 Patient Name: Malaika Fong Record Number: [id number] Date: 03/15/2019 05:23 Entered Department at: 03/15/2019 03:44 Patient Seen at: 03/15/2019 03:54 Historian: EMS and Patient PCP: Davida Chief Complaint:pt not feeling well for the past 6 months, pt started having chest pain and sob tonight, pt thinks she has been exposed to black mold Pulse: 70. Respiratory Rate: 18. Blood-pressure: 108/68. Oxygen Saturation: 95%. History of Present Illness: Patient is convinced she has black mold in her home. Patient came in because for the last 6 months she has been having cough and chest wall pain it hurts to take a deep breath she states she wheezes she knows it is due to the black mold. The patient is already been placed on medication for this in the past. The patient presents now because she is having chest wall pain. [facility] PATIENT NAME: MALAIKA FONG [address] [facility] [address] MEDICAL REC #: [id number] [place] [address] EMERGENCY DEPARTMENT REPORT EMERGENCY DEPARTMENT PHYSICIAN She has a history of anxiety and PTSD. Patient wanted me to test to prove that it is the black mold that is causing this. I informed him I I am unable to do so. HPI Elements: Onset: 6 Months ago; Timing: Gradual and Intermittent; Location: Chest wall pain cough shortness of breath; Quality: Aching and Dull; Severity: maximum Mild, now Mild; Context: At Rest; Exacerbated by: Deep Breath and Palpation; Alleviated by: Nothing Associated symptoms: As above. Review of Systems. All other systems reviewed and negative.. Past History, Medications, Allergies, Social History and Family History reviewed in nurses note. Past Medical History: History of: Anxiety Disorder. PTSD Medications: Reviewed RN Note. BUSPIRONE HYDROCHLORIDE 15MG TABLET - PO, MIRTAZAPINE 15MG TABLET - PO, ropinirole 0.5mg tab, asa 81 mg po, verfied with list 03/15/19 Allergies: Reviewed RN Note noraflex(Unknown), Demerol(Unknown), Vistaril (Hydroxyzine)(Unknown), carbatral(Unknown), lexapro(Unknown), effexor(Unknown), lactose(Unknown), Dilaudid(Unknown), pexeva(Unknown), Bactrim(Unknown), bees(Unknown), seroqual (Rash), Flexeril(Rash), gabapentin(Unknown), tomato(Unknown), naprosyn(Rash) Social History: Reviewed RN Note. Tobacco: None. Alcohol: None. Recreational Drugs: None. Family History: Reviewed RN Note Physical Examination: General: Alert; Nontoxic-appearing no acute distress HEENT: Normal ENT inspection. [facility] PATIENT NAME: MALAIKA FONG [address] [facility] [address] MEDICAL REC #: [id number] [place] [address] EMERGENCY DEPARTMENT REPORT EMERGENCY DEPARTMENT PHYSICIAN Eyes: Lids Normal; . Oropharynx / Throat: Normal Pharynx. Neck: No Lymphadenopathy, No Meningismus and Supple Respiratory: No Resp Distress and Normal Breath Sounds; Patient does not have any wheezes but her chest is tender to palpation. I gave her a breathing treatments she is falling asleep and feeling better. Cardio-Vascular: No murmur, No rub and RRR Abdomen: Normal Bowel Sounds, Non-tender and Soft Back: No CVA tenderness, No Midline Tenderness and Non-tender Extremity: No edema and Normal Equal pulses Neurological: Alert, Oriented X3 and No Gross Weakness Skin: No rash, No Petechiae, Warm and Dry Psychological: Mood/Affect Normal and Normal Memory/Judgment [facility], information as of 03/15/2019, 3:55 am 143 --------+--------+----- ---andlt; 102* Anion Gap = 5 4.2 BUN/CREA: 10; CALCIUM TOTAL: 8.6 Mg/Dl CBC W/DIFF, information as of 03/15/2019, 3:55 am 89.4 / 12.0 / 4.1* andgt;------andlt; 168 / 38.0 / N:62.1 BASO ABS: 0.00 K/Cu Mm; BASOPHIL %: 0.5 %; EOS ABS: 0.10 K/Cu Mm; EOSINOPHIL %: 1.2 %; IMMATR GRAN ABS: 0.00 K/Cu Mm; IMMATURE GRAN %: 0.2 %; LYMPH %: 30.1 %; LYMPH ABS: 1.20 K/Cu Mm; MCHC: 31.6 Gm/Dl; MONO ABS: 0.20 K/Cu Mm; MONOCYTE %: 5.9 %; MPV: 11.2; NEUTROPHIL ABS: 2.50 K/Cu Mm; NRBC: 0.0 %; RBC: 4.25 M/Cu Mm; RDW: 13.4 TROPONIN I POC, information as of 03/15/2019, 4:39 am POC Trop-I: 0.01 Cardiogram: Interpreted by me. Rate: 62 bpm. Rate NormalRhythm Sinus RhythmAxis NormalIntervals NormalQRS NormalST/T Normal Interpretation: Normal. Comparison: No old Cardiogram available for comparison Imaging Study Obtained: CHEST (PORTABLE) [facility] PATIENT NAME: MALAIKA FONG [address] [facility] [address] [facility] [address] MEDICAL REC #: [id number] [place] [address] EMERGENCY DEPARTMENT REPORT EMERGENCY DEPARTMENT PHYSICIAN Radiology: Interpreted by me. Normal cardiopulmonary shadow. Medical Decision Making Patient has chest wall pain and possibility of allergies to mold. Patient will have to have her house tested for that. I explained to her. I placed her on prednisone she says the breathing treatment helped her. I gave her an inhaler and she will be released my impression is acute bronchospasm with chest wall pain. Her laboratories are completely normal white count is only 4.1 hemoglobin is 12 these are to normal values no leukocytosis electrolytes are normal gap is 5 there is no metabolic acidosis or troponin 0 0.01 and her EKG is a normal sinus rhythm without any ST-T wave changes. Re-Evaluation: 05:27: Symptoms Improved. Examination Improved. Additional Information: Discussed Results, Diagnosis and Follow-Up with Patient. Clinical Impression: 1. Acute bronchospasm with chest wall pain Disposition: Discharged *Home at 15 Mar 2019, 05:27. Condition: Stable MSE completed. I was the primary ED attending.. Patient transported to ED by EMS with medical direction by SCEP physician (not applicable for EMT squads) .. ===DISCHARGE REPORT=== : Discharge Report Event Time: 03/15/2019 05:[address] [facility] PATIENT NAME: MALAIKA FONG [address] [facility] [address] MEDICAL REC #: [id number] [place] [address] EMERGENCY DEPARTMENT REPORT EMERGENCY DEPARTMENT PHYSICIAN Status: Draft Reasons to Return to the ER: You must return to the ER for any new, worsening or changing symptoms, or if you feel more ill or sick in any way. This is the most important thing to remember. Follow-up: The care you received in the ER was given on an emergency basis only, and it is often not possible to completely treat or diagnose a problem in a single ER visit. You must see your follow-up doctor for a recheck within a week unless you receive instructions with a different timeframe for follow-up. Please follow all your discharge instructions. Medications: Unless the ER doctor tells you differently, you should take all your regular medications and any new medications prescribed today. Because it is not possible for the ER doctor to review all of your medication side effects or interactions, you must review possible side effects and interactions with your pharmacist when you get your prescriptions filled. EKG and Radiology Results: A patent prosecution paralegal or radiologist will review any EKG or radiology results provided by the ER doctor. We will contact you if the results in the final EKG or radiology reports require a change in treatment. Culture Results: Cultures may have been ordered during your ER visit. We will contact you if the culture results require a change in treatment. Referrals: Most referrals to specialists come from the on-call list You should make your regular doctor aware of any referrals before you schedule the appointment so that they [facility] PATIENT NAME: MALAIKA FONG [address] [facility] [address] MEDICAL REC #: [id number] [place] [address] EMERGENCY DEPARTMENT REPORT EMERGENCY DEPARTMENT PHYSICIAN are aware and can make suggestions DIAGNOSIS: Acute bronchospasm with chest wall pain INSTRUCTIONS: You have bronchospasm it may be due to an allergy in your home you need to have the home tested. Use the inhaler 2 puffs every 3-4 hours it will help you with your breathing and your chest wall pain. Take the prednisone will help you with your chest pain as well for the inflammation of your ribs. And the bronchospasm. Bronchitis affects the larger air tubes in the lungs and is usually caused by a virus infection. Bronchitis often occurs with colds and can last 1-2 weeks, even with treatment. Smokers will get bronchitis more often than non-smokers and in smokers it will last even longer, sometimes 3-4 weeks. Asthma (also called Reactive Airway Disease) produces a temporary narrowing of the lung tubes and may also be caused by virus infections, as well as allergies or changes in the weather. Asthma attacks are a problem that happen again and again, though children will sometimes outgrow their asthma. Asthma and acute bronchitis do not usually cause permanent lung damage but sometimes occur together, which is a problem called asthmatic bronchitis. This is more common in smokers. All of these problems can cause cough, wheezing, shortness of breath, fever or retractions (when the skin between the ribs gets pulled in and out while breathing). Depending on your problem, the doctor may treat you with antibiotics (but not for viral infections, which are the most common cause), inhalers, aerosols, steroids or other medications. Hhib-lgh-ljcwmme cough medications may also help you feel better. All of these problems are made much worse with smoking and you must avoid all tobacco products. You must use all of your regular medications plus all the medications that [facility] PATIENT NAME: MALAIKA FONG [facility] [address] MEDICAL REC #: [id number] [place] [address] EMERGENCY DEPARTMENT REPORT EMERGENCY DEPARTMENT PHYSICIAN were given to you today. UNLESS THE ER DOCTOR GIVES YOU OTHER INSTRUCTIONS, YOU MUST SEE YOUR FOLLOW-UP DOCTOR FOR RECHECK WITHIN 2 TO 3 DAYS: YOU MUST RETURN TO THE ER RIGHT AWAY FOR ANY OF THE FOLLOWING:New or increasing fever or chillsIncreasing cough, shortness of breath or wheezingIncreasing retractions (especially seen in children)New or increasing chest pain or pressureNew or increasing swelling in the arms or legsNew or increasing problems with coughing up bloodPhlegm that looks more green-yellow or smells bad ASTHMA ACTION PLAN: If you have been diagnosed with asthma, the following asthma plan should be reviewed with your follow-up doctor. It will help you to better manage your asthma. Your GREEN ZONE is 80 - 100% of your personal best peak flow. Your breathing is good with no cough, wheeze or chest tightness during work, school, exercise or activities of daily living. Continue to take the medications as prescribed to you today. Your YELLOW ZONE is 50 - 80% of your personal best peak flow. Your asthma symptoms are present. This may include cough, wheeze, shortness of breath, chest tightness and/or waking at night. Take 2 additional puffs every 20 minutes for up to one hour on your quick relief inhaler or an additional nebulizer treatment with your quick relief medicine. If your symptoms/peak flows return to the GREEN ZONE, take your medicine as prescribed. If your symptoms/peak flows do not return to the GREEN ZONE after one hour of treatment, then call your doctor or return to the ER. Your RED ZONE is less than 50% of your personal best peak flow. You are very short of breath or your quick relief medicines have not helped or you cannot do your usual activities. You must call your doctor or return to the ER. MEDICATIONS [facility] PATIENT NAME: MALAIKA FONG [facility] [address] MEDICAL REC #: [id number] [place] [address] EMERGENCY DEPARTMENT REPORT EMERGENCY DEPARTMENT PHYSICIAN We have given you these prescriptions that you must fill and start taking: Prednisoneprednisone 20 mg tablet, count:10, Dose = 1, count:10, 5 days, count:10,2 times a day, count:10 albuterol 90 mcg/actuation aerosol inhaler, count:1 inhaler, Dose =2 puffs, count:1 inhaler,q4-6 hrs as needed, count:1 inhaler, Number of Refills = 0, count:1 inhaler, With spacer, count:1 inhaler COMMENTS: Patient Satisfaction: Within the first few days after your visit, you will receive an email and/or phone call regarding your visit. We value your feedback, and would appreciate it if you would take the time to complete this short survey. If you receive a call, it will be between 6p and 8p. EXCUSED ABSENCE FROM WORK AND SCHOOL. Please excuse the above named patient from work/school for today. My signature below indicates that I have received and understand the oral instructions regarding my medical problem. I also acknowledge receipt of this written instruction sheet including a list of major tests and procedures ordered during my visit. I will arrange for follow-up care as indicated by these instructions and referrals. This signed original will be kept in my medical record. Your signature below indicates consent for Case Management to [facility] in an effort to meet your ongoing healthcare needs. This will allow forcontinuity of care once you leave the Emergency Department. This exchange of informationwill include, but not be limited to, disclosure of your patient information and possible release of records. : AtifChartData Event Time: 03/15/2019 06:[address] [facility] PATIENT NAME: MALAIKA FONG [address] MEDICAL REC #: [id number] [place] [address] EMERGENCY DEPARTMENT REPORT EMERGENCY DEPARTMENT PHYSICIAN [employer] Patient: MALAIKA FONG Sex: F : 1970 Age: 48 yr Account No: [id number] Registration Date: 03:03/15/2019 Address: [address] Address: [place] [address] REGISTRATION ED Number: [id number] Marital Status: S Financial Class: [facility] Priority: 3 - Urgent Complaint: Chest Pain Complaint: Shortness of Breath Stated Complaint: pt not feeling well for the past 6 months, pt started having chest pain and sob tonight, pt thinks she has been exposed to black mold Arrival Date: 03/15/2019 03:44 Triage Date: 03/15/2019 03:46 Mode of Arrival: Ambulance Transfer From: * Home WC: N Language: Burkinan Transport: [facility] BED A07 In: 03/15/2019 03:53:46 03/15/2019 03:53:46 KASD A07 (Removed From) Out: 03/15/2019 06:19:07 03/15/2019 06:19:[address] [facility] PATIENT NAME: MALAIKA FONG [address] [facility] [address] [facility] [address] MEDICAL REC #: [id number] [place] [address] EMERGENCY DEPARTMENT REPORT EMERGENCY DEPARTMENT PHYSICIAN PROVIDERS Emergency Medical Service Provider Contact: 03/15/2019 03:46:27 EMS End: DO Ian Rendon Provider Contact: 03/15/2019 03:54:03 CK End: KENAN AGUILERA Provider Contact: 03/15/2019 04:56:48 KASD End: TRIAGE HISTORY ALLERGIES Allergic To: noraflex - Unknown 03/15/2019 04:04 KASD Allergic To: Demerol - Unknown 03/15/2019 04:04 KASD Allergic To: Vistaril (Hydroxyzine) - Unknown 03/15/2019 04:04 KASD Allergic To: carbatral - Unknown 03/15/2019 04:04 KASD Allergic To: lexapro - Unknown 03/15/2019 04:04 KASD Allergic To: effexor - Unknown 03/15/2019 04:04 KASD Allergic To: lactose - Unknown 03/15/2019 04:04 KASD Allergic To: Dilaudid - Unknown 03/15/2019 04:04 KASD Allergic To: pexeva - Unknown 03/15/2019 04:04 KASD Allergic To: Bactrim - Unknown 03/15/2019 04:04 KASD Allergic To: bees - Unknown 03/15/2019 04:04 KASD Allergic To: seroqual - Rash 03/15/2019 04:[address] [facility] PATIENT NAME: MALAIKA FONG [address] [facility] [address] [facility] [address] MEDICAL REC #: [id number] [place] [address] EMERGENCY DEPARTMENT REPORT EMERGENCY DEPARTMENT PHYSICIAN Allergic To: Flexeril - Rash 03/15/2019 04:04 KASD Allergic To: gabapentin - Unknown 03/15/2019 04:04 KASD Allergic To: tomato - Unknown 03/15/2019 04:04 KASD Allergic To: naprosyn - Rash 03/15/2019 04:04 KASD CURRENT MEDS Name: BUSPIRONE HYDROCHLORIDE 15MG TABLET - PO 03/15/2019 04:04 KASD Name: MIRTAZAPINE 15MG TABLET - PO 03/15/2019 04:04 KASD Name: ropinirole 0.5mg tab 03/15/2019 04:04 KASD Name: asa 81 mg po 03/15/2019 04:04 KASD Name: verfied with list 03/15/19 03/15/2019 04:04 KASD ILLNESS Illness: Anxiety 03/15/2019 03:53 KASD Illness: Other Medical PTSD 03/15/2019 03:53 KASD Illness: CVA 03/15/2019 03:53 KASD PAST SURGERY HIST Surgery: 03/15/2019 03:53 KASD Surgery: skin graft 03/15/2019 03:53 KASD PAST SOCIAL HIST Social History: Communicates without difficulty 03/15/2019 03:53 KASD Social History: Lives with family or significant other 03/15/2019 03:53 KASD Social History: Alcohol - None 03/15/2019 03:53 KASD Social History: Smoker-None 03/15/2019 03:[address] [facility] PATIENT NAME: MALAIKA FONG [facility] [address] MEDICAL REC #: [id number] [place] [address] EMERGENCY DEPARTMENT REPORT EMERGENCY DEPARTMENT PHYSICIAN Social History: Recreational Drugs - None 03/15/2019 03:53 KASD Social History: Denies Domestic Violence 03/15/2019 03:53 KASD Social History: Denies thoughts of self harm. 03/15/2019 03:53 KASD Social History: Have you traveled in the past month? Where no 03/15/2019 03:53 KASD IMMUNIZATIONS Immunization: Flu Vaccine-no 03/15/2019 03:53 KASD NURSING ASSESSMENT Respiratory Treatment : Respiratory Therapy Treatment Event Time: 03/15/2019 04:20 BJB Therapy:Aerosol: Albuterol 5mg Atrovent 0.5mg Pre Treatment Auscultation:clear: diffuse Pre Treatment Vital Signs:heart rate pre treatment: 62respiratory rate pre treatment: 16 Small Volume Nebulizer Treatment:SVN given with mouthpiece Post Treatment Vital Signs:heart rate post treatment: 71 Cough Effect:none ASSESSMENT NOTES 03/15/2019 04:04 CALLED RESP CONCERNING ORDER 03/15/2019 04:04 BYV 03/15/2019 04:17 pt aandamp;o x3, pt comes in with chest pain and sob, pt stated she has not felt well, for the past 6 month, pt thinks there is black mold in her house, pt started having chest pain and sob tonight, normal heart sounds, non-labored breathing, expiratory wheezing, denies abd pain, abd soft, non-tender, non-distended, color pink, skin w/d 03/15/2019 04:[address] [facility] PATIENT NAME: MALAIKA FONG [address] [facility] MEDICAL REC #: [id number] [place] [address] EMERGENCY DEPARTMENT REPORT EMERGENCY DEPARTMENT PHYSICIAN 03/15/2019 04:15 Patient Interaction - Allergy Band on Pt. 03/15/2019 04:17 [facility]/15/[facility] 04:16 Patient Interaction - Call light placed within reach. 03/15/2019 04:17 [facility] 03/15/2019 04:16 Patient Interaction - Ui Lead Developer/ Pulse ox/ BP cuff applied 03/15/2019 04:17 [facility] 03/15/2019 04:16 Patient Interaction - Introduce self to Patient. 03/15/2019 04:17 [facility] 03/15/2019 04:16 Patient Interaction - Name Band on Pt 03/15/2019 04:17 [facility] 03/15/2019 04:16 Primary DOC Guide - A. 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 Fall Risk Assessment (Age andlt;65) 03/15/2019 04:17 [facility] History of Falling in last 3 months? No (0) Confusion or Disorientation? No (0) Intoxicated or Sedated? No (0) Impaired Gait? No (0) Mobility Assist Device Used? No (0) Altered Elimination? No (0) Fall Risk Score 1-2 Points = Low Risk. 3-4 Points = Moderate Risk. 5 or more points = High Risk. 0 Fall Score Greater andgt;= 3? No 03/15/2019 04:16 Primary DOC Guide - D. [place] Suicide Risk Survey 03/15/2019 04:17 KASD 6a. Have you ever done anything, started to do anything, or prepared to do anything to end your life? No [facility] PATIENT NAME: MALAIKA FONG [address] [facility] MEDICAL REC #: [id number] [place] [address] EMERGENCY DEPARTMENT REPORT EMERGENCY DEPARTMENT PHYSICIAN 2. Have you actually had any thoughts of killing yourself? If YES to 2, ask questions 3,4,5 and 6. If NO to 2, go directly to question 6. No 1. Have you wished you were or wished you could go to sleep and not wake up? No 03/15/2019 04:17 Primary DOC Guide - E. Family Violence Assessment 03/15/2019 04:17 KASD Within the past year, has anyone ever pushed, shoved, slapped, choked, hit, punched or kicked you: No Within the past year, has anyone ever pressured or forced you to have sexual activities when you did not want to: No Do you feel safe and well cared for: Yes Is there a partner from a previous or current relationship that is making you feel unsafe now: No 03/15/2019 04:53 POC testing results and critical values - POC Troponin 0.01 on ED 1 instrument 03/15/2019 04:54 HVH 03/15/2019 05:04 Hourly Rounding - Rounding 03/15/2019 05:05 KASD Elimination/Toileting N Pain 5 Position Comfortable Y Safe Environment Y Fall Risk Change N 03/15/2019 06:11 Admit/Discharge - *Discharge instructions/tests andamp; procedures/med list reviewed and provided; prescriptions given to patient 03/15/2019 06:11 KASD 03/15/2019 06:11 Admit/Discharge - Ambulated with steady gait home 03/15/2019 06:11 KASD MEDICATIONS IV IV Fluid: B 03/15/2019 04:14 03/15/2019 04:[address] [facility] PATIENT NAME: MALAIKA FONG [address] [facility] MEDICAL REC #: [id number] [place] [address] EMERGENCY DEPARTMENT REPORT EMERGENCY DEPARTMENT PHYSICIAN REGI Line #: 1 Rate: ml/hr Location: antecubital fossa left Ndl Gauge: 20 # Attempts: 1 Notes: blood drawn, flushed well, no redness or swelling noted IV Fluid: E 03/15/2019 06:10 03/15/2019 06:10 KASD Line #: 1 Rate: ml/hr Location: antecubital fossa left Ndl Gauge: 20 # Attempts: 1 Notes: iv removed angio intact pressure dressing applied I AND O VITALS VS-ROUTINE Time: 03/15/2019 03:46 B/P: 108/68 - Left Upper Arm - Sitting - Machine Pulse: 70 - Monitor Resp: 18 Sa02: 95 Room Air 03/15/2019 03:53 KASD VS-Pain Time: 03/15/2019 03:46 Pain Level: 6 03/15/2019 03:53 KASD VS-GCS Time: 03/15/2019 03:46 Visual: 4 Verbal: 5 Motor: 6 GCS Total: 15 03/15/2019 03:53 KASD VS-HT/WT Time: 03/15/2019 03:46 Ht: 66 in. Stated Weight: 160 lbs Actual 03/15/2019 03:53 KASD VS-Visual Time: 03/15/2019 03:46 03/15/2019 03:53 KASD VS-FHT Time: 03/15/2019 03:46 03/15/2019 03:53 KASD VS-Notes Time: 03/15/2019 03:46 map 83 03/15/2019 03:53 KASD VS-ROUTINE Time: 03/15/2019 05:30 B/P: 95/52 - Left Upper Arm - Sitting - Machine Pulse: 96 - Monitor Resp: 20 Sa02: 97 Room Air 03/15/2019 05:31 KASD VS-Pain Time: 03/15/2019 05:30 Pain Level: 5 03/15/2019 05:31 KASD VS-GCS Time: 03/15/2019 05:30 Visual: 4 Verbal: 5 Motor: 6 GCS Total: 03/15/2019 05:31 KASD VS-HT/WT Time: 03/15/2019 05:30 03/15/2019 05:31 KASD VS-Visual Time: 03/15/2019 05:30 03/15/2019 05:[address] [facility] PATIENT NAME: MALAIKA FONG [address] [facility] MEDICAL REC #: [id number] [place] [address] EMERGENCY DEPARTMENT REPORT EMERGENCY DEPARTMENT PHYSICIAN VS-FHT Time: 03/15/2019 05:30 03/15/2019 05:31 KASD VS-Notes Time: 03/15/2019 05:30 map 68 03/15/2019 05:31 KASD ORDERS Discharge patient 03/15/2019 05:30 N/A Ordered: 03/15/2019 05:28 By . Other Reviewed: 03/15/2019 05:30 By . Other KIER OPERATOR ORDER: POCTROP 03/15/2019 04:55 None Ordered: 03/15/2019 04:55 Completed Time: 03/15/2019 04:55 Results Time: 03/15/2019 04:55 KIER OPERATOR ORDER: GFRP 03/15/2019 04:47 None Ordered: 03/15/2019 04:47 Completed Time: 03/15/2019 04:47 Results Time: 03/15/2019 04:46 CXR portable 03/15/2019 04:14 N/A Ordered: 03/15/2019 04:01 By Ian Rendon Completed Time: 03/15/2019 04:14 By Ian Rendon Indication: Chest Pain Question: Are you or think you might be ? Answer: NO Atrovent 0.5 mg with 1st treatment 03/15/2019 04:38 N/A Ordered: 03/15/2019 04:01 By Ian Rendon Completed Time: 03/15/2019 04:38 By Ian Rendon Noted Time: 03/15/2019 04:19 BYV Albuterol aerosol 5mg x 1 03/15/2019 04:38 N/A Ordered: 03/15/2019 04:01 By Ian Rendon Completed Time: 03/15/2019 04:38 By Ian Rendon Noted Time: 03/15/2019 04:19 BYV BMP 03/15/2019 04:47 N/A [facility] PATIENT NAME: MALAIKA FONG [address] MEDICAL REC #: [id number] [place] [address] EMERGENCY DEPARTMENT REPORT EMERGENCY DEPARTMENT PHYSICIAN Ordered: 03/15/2019 03:54 By Protocol Completed Time: 03/15/2019 04:47 By Protocol Noted Time: 03/15/2019 04:14 MAFA Results Time: 03/15/2019 04:46 cardiac monitor technician 03/15/2019 04:55 N/A Ordered: 03/15/2019 03:54 By Protocol Completed Time: 03/15/2019 04:14 By Protocol Noted Time: 03/15/2019 03:58 KASD CBC with diff 03/15/2019 04:33 N/A Ordered: 03/15/2019 03:54 By Protocol Completed Time: 03/15/2019 04:33 By Protocol Noted Time: 03/15/2019 04:14 MAFA Results Time: 03/15/2019 04:33 EKG and most recent EKG 03/15/2019 04:15 N/A Ordered: 03/15/2019 03:54 By Protocol Completed Time: 03/15/2019 04:15 By Protocol Noted Time: 03/15/2019 04:06 JEBA POC troponin 03/15/2019 04:53 N/A Ordered: 03/15/2019 03:54 By Protocol Completed Time: 03/15/2019 04:53 By Protocol Noted Time: 03/15/2019 04:14 MAFA DISCHARGE Diagnosis: Acute bronchospasm with chest wall pain 03/15/2019 05:30 CANCELLED DIAGNOSES Diagnosis Name: Acute bronchospasm with chest wall pain Disposition: Time: 03/15/2019 05:28 By: Ian Rendon Discharge Time: 03/15/2019 06:19 Type: *Discharge Condition: Stable for admission/discharge/tra nsfer after emergency evaluation/treatment Category: Chest pain track IV (lower risk for ACS) Concurred: 03/15/2019 05:30 Referral: [facility] PATIENT [facility]: [facility] MEDICAL REC #: [id number] [place] [address] EMERGENCY DEPARTMENT REPORT EMERGENCY DEPARTMENT PHYSICIAN 03/15/2019 05:30 PRESCRIPTIONS Prednisoneprednisone 20 mg tablet 03/15/2019 05:29 SI bid for 5 days Dispense: 10 / Refills: albuterol 90 mcg/actuation aerosol inhaler 03/15/2019 05:29 SI pu q4-6 hrs as needed Additional Instructions: With spacer Dispense: 1 in / Refills: CHARGES SIGNATURE Ian Rendon DO [facility]A LISA [facility] JOANN SHEFFIELD [facility] PATIENT NAME: MALAIKA FONG [address] MEDICAL REC #: [id number] [place] [address] EMERGENCY DEPARTMENT REPORT EMERGENCY DEPARTMENT PHYSICIAN Normal [facility] GFR ESTon 03-15-2019 IF AMER Greater than 60 Normal [facility] Comment on above: Order Comment: Campu s: M Performed By: #### L [id number], [id number] #### [facility] [place] [address] IF non-AFR AMER Greater than 60 Normal [facility] Comment on above: Order Comment: Campu s: M Performed By: #### L [id number], [id number] #### [facility] [address] [place] [id number] PORTABLE CHESTon 03-15-2019 PORTABLE CHEST PORTABLE CHEST Ordering Physician: Ina Rendon DO 03/15/2019 4:01 AM PA AND LATERAL CHEST: Clinical Statement: Chest pain Comparison: None FINDINGS: Chest examination reveals no acute abnormality of the lungs, heart, mediastinum or bony thorax. IMPRESSION: No acute cardiopulmonary disease. ---- Electronic Signature on File ---- Signed By: Antwan Myles MD [email or web address] Dictated: 03/15/2019 11:47 AM Signed: 03/15/2019 11:47 AM Reported By: ANTWAN MYLES M.D. Signed By: ANTWAN MYLES M.D. Normal [facility] TROPONIN I POCon 03-15-2019 Troponin I.cardiac [Mass/Vol] 0.01 ng/mL Normal 0.0-0.06 [facility] Comment on above: Result Comment: 0.0 - 0.06 NG/ML - NON-DIAGNOSTIC (REFERENCE RANGE) 0.07 - 0.59 NG/ML - INDETERMINATE Greater than or equal to 0.6 NG/ML - INDICATIVE OF MYOCARDIAL DAMAGE Culture, urine Bacteria identified Cx Nom (U) Positive [facility] Work Phone: S. pyogenes Ag IF Ql (Throat ) S. pyogenes Ag IA Ql (Unsp spec) [facility] Work Phone: Vital Signs Date Time Vital Sign Value Performing Clinician Facility 03-10-2024 17:28-0500 Body mass index (BMI) [Ratio] 31.31 kg/m2 Krislyn Aberegg PA Work Phone: [facility] 03-10-2024 17:28-0500 Body temperature 97.59 [degF] Krislyn Aberegg PA Work Phone: [facility] 03-10-2024 17:28-0500 Body weight 88 kg Krislyn Aberegg PA Work Phone: [facility] 03-10-2024 17:28-0500 Diastolic blood pressure 76 mm[Hg] Krislyn Aberegg PA Work Phone: [facility] 03-10-2024 17:28-0500 Heart rate 99 /min Krislyn Aberegg PA Work Phone: [facility] 03-10-2024 17:28-0500 Respiratory rate 20 /min Krislyn Aberegg PA Work Phone: [facility] 03-10-2024 17:28-0500 SaO2% (BldA) [Mass fraction] 98 % Krislyn Aberegg PA Work Phone: [facility] 03-10-2024 17:28-0500 Systolic blood pressure 112 mm[Hg] Krislyn Aberegg PA Work Phone: [facility] 10-12-2023 09:43-0400 Body mass index (BMI) [Ratio] 23.31 kg/m2 Silvio Lira MD Work Phone: [facility] 10-12-2023 09:43-0400 Body weight 65.5 kg Silvio Lira MD Work Phone: [facility] 10-12-2023 09:43-0400 Diastolic blood pressure 77 mm[Hg] Silvio Lira MD Work Phone: [facility] 10-12-2023 09:43-0400 Heart rate 63 /min Silvio Lira MD Work Phone: [facility] 10-12-2023 09:43-0400 Respiratory rate 16 /min Silvio Lira MD Work Phone: [facility] 10-12-2023 09:43-0400 Systolic blood pressure 109 mm[Hg] Silvio Lira MD Work Phone: [facility] 08-22-2023 14:19-0400 Body mass index (BMI) [Ratio] 29.57 kg/m2 Krislyn Aberegg PA Work Phone: [facility] 08-22-2023 14:19-0400 Body temperature 97.3 [degF] Krislyn Aberegg PA Work Phone: [facility] 08-22-2023 14:19-0400 Body weight 83.1 kg Krislyn Aberegg PA Work Phone: [facility] 08-22-2023 14:19-0400 Diastolic blood pressure 71 mm[Hg] Krislyn Aberegg PA Work Phone: [facility] 08-22-2023 14:19-0400 Heart rate 87 /min Krislyn Aberegg PA Work Phone: [facility] 08-22-2023 14:19-0400 Respiratory rate 18 /min Krislyn Aberegg PA Work Phone: [facility] 08-22-2023 14:19-0400 SaO2% (BldA) [Mass fraction] 96 % Krislyn Aberegg PA Work Phone: [facility] 08-22-2023 14:19-0400 Systolic blood pressure 108 mm[Hg] Krislyn Aberegg PA Work Phone: [facility] 07-29-2023 16:24-0400 Body mass index (BMI) [Ratio] 28.75 kg/m2 Ashvin Stone APRN.MATERIAL REPROCESSING ASSOCIATE Work Phone: [facility] 07-29-2023 16:24-0400 Body temperature 97.39 [degF] Ashvin Stone APRN.MATERIAL REPROCESSING ASSOCIATE Work Phone: [facility] 07-29-2023 16:24-0400 Body weight 80.8 kg Ashvin Stone SURGICAL SCRUB TECHNICIAN.MATERIAL REPROCESSING ASSOCIATE Work Phone: [facility] 07-29-2023 16:24-0400 Diastolic blood pressure 68 mm[Hg] Ashvin Stone SURGICAL SCRUB TECHNICIAN.MATERIAL REPROCESSING ASSOCIATE Work Phone: [facility] 07-29-2023 16:24-0400 Heart rate 85 /min Ashvin Stone SURGICAL SCRUB TECHNICIAN.MATERIAL REPROCESSING ASSOCIATE Work Phone: [facility] 07-29-2023 16:24-0400 Respiratory rate 20 /min Ashvin Stone SURGICAL SCRUB TECHNICIAN.MATERIAL REPROCESSING ASSOCIATE Work Phone: [facility] 07-29-2023 16:24-0400 SaO2% (BldA) [Mass fraction] 96 % Ashvin Stone SURGICAL SCRUB TECHNICIAN.MATERIAL REPROCESSING ASSOCIATE Work Phone: [facility] 07-29-2023 16:24-0400 Systolic blood pressure 98 mm[Hg] Ashvin Stone SURGICAL SCRUB TECHNICIAN.MATERIAL REPROCESSING ASSOCIATE Work Phone: [facility] 11-21-2022 15:43-0400 Body temperature 98.1 [degF] Silvio Lira MD Work Phone: [facility] 11-21-2022 15:43-0400 Body weight 80.29 kg Silvio Lira MD Work Phone: [facility] 11-21-2022 15:43-0400 Diastolic blood pressure 69 mm[Hg] Silvio Lira MD Work Phone: [facility] 11-21-2022 15:43-0400 Heart rate 77 /min Silvio Lira MD Work Phone: [facility] 11-21-2022 15:43-0400 Respiratory rate 16 /min Silvio Lira MD Work Phone: [facility] 11-21-2022 15:43-0400 Systolic blood pressure 108 mm[Hg] Silvio Lira MD Work Phone: [facility] 08-29-2022 15:57-0400 Body weight 79.38 kg Silvio Lira MD Work Phone: [facility] 07-19-2023 15:57-0400 Diastolic blood pressure 63 mm[Hg] Silvio Lira MD Work Phone: [facility] 08-29-2022 15:57-0400 Heart rate 77 /min Silvio Lira MD Work Phone: [facility] 08-29-2022 15:57-0400 Respiratory rate 16 /min Silvio Lira MD Work Phone: [facility] 08-29-2022 15:57-0400 Systolic blood pressure 98 mm[Hg] Silvio Lira MD Work Phone: [facility] 07-11-2022 13:38-0400 Heart rate 89 /min [facility] 07-11-2022 13:38-0400 Respiratory rate 18 /min [facility] 07-11-2022 13:38-0400 SaO2% (BldA) [Mass fraction] 100 % [facility] 07-11-2022 11:37-0400 Body height 167.64 cm [facility] 07-11-2022 11:37-0400 Body mass index (BMI) [Ratio] 26.9 kg/m2 [facility] 07-11-2022 11:37-0400 Body temperature 97.7 [degF] [facility] 07-11-2022 11:37-0400 Body weight 75.5 kg [facility] 07-11-2022 11:37-0400 Diastolic blood pressure 69 mm[Hg] [facility] 07-11-2022 11:37-0400 Systolic blood pressure 100 mm[Hg] [facility] 05-25-2022 15:54-0400 Body weight 80.74 kg Gerry GARCIA-C Work Phone: [facility] 05-25-2022 15:54-0400 Diastolic blood pressure 76 mm[Hg] Gerry GARCIA-C Work Phone: [facility] 05-25-2022 15:54-0400 Heart rate 94 /min Gerry GARCIA-C Work Phone: [facility] 05-25-2022 15:54-0400 Respiratory rate 16 /min Gerry Barton PA-C Work Phone: [facility] 05-25-2022 15:54-0400 Systolic blood pressure 110 mm[Hg] Gerry Barton PA-C Work Phone: [facility] 04-20-2022 12:21-0500 Diastolic blood pressure 83 mm[Hg] [facility] 04-20-2022 12:21-0500 Heart rate 62 /min [facility] 04-20-2022 12:21-0500 SaO2% (BldA) [Mass fraction] 100 % [facility] 04-20-2022 12:21-0500 Systolic blood pressure 116 mm[Hg] [facility] 04-20-2022 09:54-0500 Body height 167.64 cm [facility] 04-20-2022 09:54-0500 Body mass index (BMI) [Ratio] 31.8 kg/m2 [facility] 04-20-2022 09:54-0500 Body temperature 98.6 [degF] [facility] 04-20-2022 09:54-0500 Body weight 89.4 kg [facility] 04-20-2022 09:54-0500 Respiratory rate 14 /min [facility] 04-13-2022 15:32-0500 Respiratory rate 16 /min [facility] 04-13-2022 13:31-0500 Body height 167.64 cm [facility] 04-13-2022 13:31-0500 Body mass index (BMI) [Ratio] 29.8 kg/m2 [facility] 04-13-2022 13:31-0500 Body temperature 96.6 [degF] [facility] 04-13-2022 13:31-0500 Body weight 83.77 kg [facility] 04-13-2022 13:31-0500 Diastolic blood pressure 89 mm[Hg] [facility] 04-13-2022 13:31-0500 Heart rate 98 /min [facility] 04-13-2022 13:31-0500 SaO2% (BldA) [Mass fraction] 95 % [facility] 04-13-2022 13:31-0500 Systolic blood pressure 128 mm[Hg] [facility] 03-05-2022 13:27-0500 Respiratory rate 14 /min [facility] 03-05-2022 11:00-0500 Body temperature 97.6 [degF] [facility] 03-05-2022 11:00-0500 Diastolic blood pressure 75 mm[Hg] [facility] 03-05-2022 11:00-0500 Heart rate 84 /min [facility] 03-05-2022 11:00-0500 SaO2% (BldA) [Mass fraction] 93 % [facility] 03-05-2022 11:00-0500 Systolic blood pressure 101 mm[Hg] [facility] 03-05-2022 09:40-0500 Body height 167.64 cm [facility] 03-05-2022 09:40-0500 Body mass index (BMI) [Ratio] 28.4 kg/m2 [facility] 03-05-2022 09:40-0500 Body weight 79.87 kg [facility] 02-23-2022 09:49-0500 Body temperature 97.39 [degF] Jamila Denbow PA-C Work Phone: [facility] 02-23-2022 09:49-0500 Body weight 81.92 kg Jamila Denbow PA-C Work Phone: [facility] 02-23-2022 09:49-0500 Diastolic blood pressure 76 mm[Hg] Jamila Denbow PA-C Work Phone: [facility] 02-23-2022 09:49-0500 Heart rate 80 /min Jamila Denbow PA-C Work Phone: [facility] 02-23-2022 09:49-0500 Respiratory rate 18 /min Jamila Denbow PA-C Work Phone: [facility] 02-23-2022 09:49-0500 SaO2% (BldA) [Mass fraction] 95 % Jamila Denbow PA-C Work Phone: [facility] 02-23-2022 09:49-0500 Systolic blood pressure 118 mm[Hg] Jamila Nation PA-C Work Phone: [facility] 11-24-2021 02:31-0400 Heart rate 88 /min [facility] 11-24-2021 02:31-0400 Respiratory rate 15 /min [facility] 11-24-2021 02:31-0400 SaO2% (BldA) [Mass fraction] 99 % [facility] 11-24-2021 00:32-0400 Diastolic blood pressure 69 mm[Hg] [facility] 11-24-2021 00:32-0400 Systolic blood pressure 110 mm[Hg] [facility] 11-23-2021 17:35-0400 Body height 167.64 cm [facility] Work Phone: 11-23-2021 17:35-0400 Body mass index (BMI) [Ratio] 28 kg/m2 [facility] 11-23-2021 17:35-0400 Body temperature 96.2 [degF] [facility] 11-23-2021 17:35-0400 Body weight 78.92 kg [facility] 11-22-2021 05:29-0400 Diastolic blood pressure 76 mm[Hg] [facility] 11-22-2021 05:29-0400 Heart rate 78 /min [facility] 11-22-2021 05:29-0400 Respiratory rate 15 /min [facility] 11-22-2021 05:29-0400 SaO2% (BldA) [Mass fraction] 95 % [facility] 11-22-2021 05:29-0400 Systolic blood pressure 114 mm[Hg] [facility] 11-22-2021 02:09-0400 Body height 167.64 cm [facility] Work Phone: 11-22-2021 02:09-0400 Body mass index (BMI) [Ratio] 28.5 kg/m2 [facility] 11-22-2021 02:09-0400 Body temperature 98.7 [degF] [facility] 11-22-2021 02:09-0400 Body weight 80.2 kg [facility] 11-05-2021 02:01-0400 Body temperature 98.7 [degF] [facility] 11-05-2021 02:01-0400 Diastolic blood pressure 73 mm[Hg] [facility] 11-05-2021 02:01-0400 Heart rate 95 /min [facility] 11-05-2021 02:01-0400 Respiratory rate 16 /min [facility] 11-05-2021 02:01-0400 SaO2% (BldA) [Mass fraction] 92 % [facility] 11-05-2021 02:01-0400 Systolic blood pressure 121 mm[Hg] [facility] 11-05-2021 01:57-0400 Body height 167.64 cm [facility] Work Phone: 11-05-2021 01:57-0400 Body mass index (BMI) [Ratio] 28.8 kg/m2 [facility] 11-05-2021 01:57-0400 Body weight 81 kg [facility] 08-29-2021 08:52-0400 Body temperature 99.2 [degF] [facility] Work Phone: 08-29-2021 08:52-0400 Diastolic blood pressure 80 mm[Hg] [facility] Work Phone: 08-29-2021 08:52-0400 Heart rate 82 /min [facility] Work Phone: 08-29-2021 08:52-0400 Respiratory rate 17 /min [facility] Work Phone: 08-29-2021 08:52-0400 SaO2% (BldA) [Mass fraction] 95 % [facility] Work Phone: 08-29-2021 08:52-0400 Systolic blood pressure 118 mm[Hg] [facility] Work Phone: 08-29-2021 08:43-0400 Body height 167.64 cm [facility] Work Phone: 08-29-2021 08:43-0400 Body mass index (BMI) [Ratio] 29.8 kg/m2 [facility] Work Phone: 08-29-2021 08:43-0400 Body weight 83.91 kg [facility] Work Phone: 08-07-2021 10:13-0400 Diastolic blood pressure 75 mm[Hg] [facility] Work Phone: 08-07-2021 10:13-0400 Systolic blood pressure 114 mm[Hg] [facility] Work Phone: 08-07-2021 08:03-0400 Body height 167.64 cm [facility] Work Phone: 08-07-2021 08:03-0400 Body mass index (BMI) [Ratio] 28.7 kg/m2 [facility] Work Phone: 08-07-2021 08:03-0400 Body temperature 97.6 [degF] [facility] Work Phone: 08-07-2021 08:03-0400 Body weight 80.8 kg [facility] Work Phone: 08-07-2021 08:03-0400 Heart rate 93 /min [facility] Work Phone: 08-07-2021 08:03-0400 Respiratory rate 17 /min [facility] Work Phone: 08-07-2021 08:03-0400 SaO2% (BldA) [Mass fraction] 96 % [facility] Work Phone: 07-28-2021 16:44-0400 Body weight 80.29 kg Raj Ocampo MD Work Phone: [facility] 07-28-2021 16:44-0400 Diastolic blood pressure 70 mm[Hg] Raj Ocampo MD Work Phone: [facility] 07-28-2021 16:44-0400 Heart rate 87 /min Raj Ocampo MD Work Phone: [facility] 07-28-2021 16:44-0400 SaO2% (BldA) [Mass fraction] 94 % Raj Ocampo MD Work Phone: [facility] 07-28-2021 16:44-0400 Systolic blood pressure 106 mm[Hg] Raj Ocampo MD Work Phone: [facility] 07-10-2021 14:00-0400 Diastolic blood pressure 78 mm[Hg] [facility] Work Phone: 07-10-2021 14:00-0400 Heart rate 75 /min [facility] Work Phone: 07-10-2021 14:00-0400 Respiratory rate 18 /min [facility] Work Phone: 07-10-2021 14:00-0400 SaO2% (BldA) [Mass fraction] 96 % [facility] Work Phone: 07-10-2021 14:00-0400 Systolic blood pressure 115 mm[Hg] [facility] Work Phone: 07-10-2021 08:44-0400 Body height 167.64 cm [facility] Work Phone: 07-10-2021 08:44-0400 Body mass index (BMI) [Ratio] 32.1 kg/m2 [facility] Work Phone: 07-10-2021 08:44-0400 Body temperature 98.2 [degF] [facility] Work Phone: 07-10-2021 08:44-0400 Body weight 90.26 kg [facility] Work Phone: 06-13-2021 18:12-0400 Diastolic blood pressure 80 mm[Hg] [facility] Work Phone: 06-13-2021 18:12-0400 Heart rate 74 /min [facility] Work Phone: 06-13-2021 18:12-0400 Respiratory rate 18 /min [facility] Work Phone: 06-13-2021 18:12-0400 SaO2% (BldA) [Mass fraction] 99 % [facility] Work Phone: 06-13-2021 18:12-0400 Systolic blood pressure 114 mm[Hg] [facility] Work Phone: 06-13-2021 17:34-0400 Body height 167.64 cm [facility] Work Phone: 06-13-2021 17:34-0400 Body mass index (BMI) [Ratio] 28.2 kg/m2 [facility] Work Phone: 06-13-2021 17:34-0400 Body temperature 98.2 [degF] [facility] Work Phone: 06-13-2021 17:34-0400 Body weight 79.37 kg [facility] Work Phone: 06-03-2021 08:37-0400 Body temperature 97.39 [degF] Silvio Lira MD Work Phone: [facility] 06-03-2021 08:37-0400 Body weight 82.56 kg Silvio Lira MD Work Phone: [facility] 06-03-2021 08:37-0400 Diastolic blood pressure 63 mm[Hg] Silvio Lira MD Work Phone: [facility] 06-03-2021 08:37-0400 Heart rate 73 /min Silvio Lira MD Work Phone: [facility] 06-03-2021 08:37-0400 Respiratory rate 16 /min Silvio Lira MD Work Phone: [facility] 06-03-2021 08:37-0400 Systolic blood pressure 97 mm[Hg] Silvio Lira MD Work Phone: [facility] 04-12-2020 02:59-0500 BP Diastolic 70 mm[Hg] Octavio HEMPHILL Work Phone: 04-12-2020 02:59-0500 BP Systolic 110 mm[Hg] Octavio HEMPHILL Work Phone: 04-12-2020 02:59-0500 Pulse (Heart Rate) 69 /min Octavio HEMPHILL Work Phone: 04-12-2020 02:59-0500 Pulse Oximetry 98 % Octavio HEMPHILL Work Phone: 04-12-2020 02:59-0500 Respiratory Rate 16 /min Octavio HEMPHILL Work Phone: 04-12-2020 01:49-0500 Height 167.6 cm Octavio HEMPHILL Work Phone: 04-12-2020 00:02-0500 BMI (Body Mass Index) 27.6 kg/m2 Octavio HEMPHILL Work Phone: 04-12-2020 00:02-0500 Body weight 77.56 kg Octavio HEMPHILL Work Phone: 04-12-2020 00:01-0500 Body Temperature 98.2 [degF] Octavio HEMPHILL Work Phone: 11-02-2019 18:04-0400 Body Temperature 97.39 [degF] [employer] [place] [employer] [place] 11-02-2019 18:04-0400 Body weight 70.76 kg [employer] [place] 11-02-2019 18:04-0400 BP Diastolic 78 mm[Hg] [employer] [place] [facility] [place] 11-02-2019 18:04-0400 BP Systolic 119 mm[Hg] [employer] [place] [facility] [place] 11-02-2019 18:04-0400 Pulse (Heart Rate) 88 /min [employer] [place] 11-02-2019 18:04-0400 Pulse Oximetry 97 % [place] 11-02-2019 18:04-0400 Respiratory Rate 20 /min [employer] [place] 10-26-2019 22:31-0400 BP Diastolic 65 mm[Hg] [facility] [place] [facility] [place] 10-26-2019 22:31-0400 BP Systolic 100 mm[Hg] [facility] [place] [facility] [place] 10-26-2019 22:31-0400 Pulse (Heart Rate) 67 /min Jose J Terrell [facility] [place], [place] 10-26-2019 22:31-0400 Pulse Oximetry 99 % Jose J Terrell [facility] [place] , [place] 10-26-2019 20:50-0400 Respiratory Rate 18 /min [facility] [place] [place] 10-26-2019 17:34-0400 Body Temperature 97.9 [degF] [facility] [place] [place] Encounters Encounter Date Encounter Type Care Provider Facility Start: 11-24-2024 End: 11-24-2024 [facility] Facility:[facility] Start: 09-14-2024 End: 09-14-2024 [facility] Charu CISNEROS Work Phone: [facility] Comment on above: PTSD (post-traumatic stress disorder) (Primary Dx); Depression, unspecified depression type; Anxiety; OAB (overactive bladder) Start: 09-14-2024 End: 09-14-2024 [facility] Facility:[facility] Start: 09-11-2024 End: 09-14-2024 Refill Silvio Lira MD Work Phone: [facility] Comment on above: Refill Request Start: 08-03-2024 End: 08-06-2024 Telephone encounter Silvio Lira MD Work Phone: [facility] Comment on above: Nurse Triage Call Start: 08-01-2024 End: 08-03-2024 ambulatory Silvio Lira MD Work Phone: [facility] Comment on above: Something is really wrong Start: 04-28-2024 End: 04-28-2024 Refill Silvio Lira MD Work Phone: [facility] Comment on above: Refill Request Start: 04-07-2024 End: 04-13-2024 Admission to same day surgery center Silvio Lira MD Work Phone: [facility] Comment on above: Surgery's Start: 04-07-2024 End: 04-13-2024 ambulatory Silvio Lira MD Work Phone: [facility] Start: 03-30-2024 End: 03-30-2024 Telemedicine consultation with patient Silvio Lira MD Work Phone: [facility] Start: 03-30-2024 End: 03-31-2024 ambulatory Silvio Lira MD Work Phone: [facility] Comment on above: Gender incongruence (Primary Dx) Start: 03-30-2024 End: 03-31-2024 Letter encounter Silvio Lira MD Work Phone: [facility] Comment on above: Letters Letter Start: 03-14-2024 End: 03-14-2024 Letter encounter Rosa HOWELLW Work Phone: [facility] Start: 03-12-2024 End: 03-12-2024 ambulatory SILVIO LIRA Facility:[facility] Start: 03-10-2024 End: 03-10-2024 ambulatory SILVIO LIRA Facility:[facility] Start: 03-10-2024 End: 03-10-2024 Patient encounter procedure Pati GARCIA Work Phone: [facility] Comment on above: Bacterial sinusitis (Primary Dx) Start: 03-09-2024 End: 03-10-2024 ambulatory Silvio Lira MD Work Phone: [facility] Comment on above: I'm ill Start: 03-06-2024 End: 03-09-2024 Telephone encounter Silvio Lira MD Work Phone: [facility] Comment on above: URI; Sinus Problem; Headache; Nurse Triage Call Start: 03-03-2024 End: 03-04-2024 Refill Silvio Lira MD Work Phone: [facility] Comment on above: Refill Request Start: 02-26-2024 End: 02-28-2024 ambulatory Silvio Lira MD Work Phone: [facility] Comment on above: Question Start: 02-17-2024 End: 02-17-2024 Emergency department patient visit Michael Sweeney Facility:[facility] Start: 02-14-2024 End: 02-17-2024 ambulatory Silvio Lira MD Work Phone: [facility] Comment on above: Court Paper Start: 02-07-2024 End: 02-10-2024 ambulatory Silvio Lira MD Work Phone: [facility] Comment on above: Court Paper and labs Court Paper Start: 01-10-2024 End: 01-20-2024 ambulatory Silvio Lira MD Work Phone: [facility] Start: 01-10-2024 End: 01-20-2024 Documentation procedure Silvio Lira MD Work Phone: [facility] Comment on above: Court document Start: 12-30-2023 End: 12-30-2023 ambulatory Silvio Lira MD Work Phone: [facility] Comment on above: Tobacco use (Primary Dx); Neuropathy Start: 12-30-2023 End: 12-30-2023 Telemedicine consultation with patient Silvio Lira MD Work Phone: [facility] Start: 12-26-2023 End: 12-27-2023 Admission to same day surgery center Silvio Lira MD Work Phone: [facility] Comment on above: Worried and scared t hat I won't be able to get my surgery Start: 12-26-2023 End: 12-27-2023 ambulatory Silvio Lira MD Work Phone: [facility] Start: 12-19-2023 End: 12-19-2023 ambulatory Silvio Lira MD Work Phone: [facility] Start: 12-19-2023 End: 12-19-2023 Patient encounter procedure Silvio Lira MD Work Phone: [facility] Comment on above: Appointment Start: 12-08-2023 End: 12-08-2023 Letter encounter Rosa MARES Work Phone: [facility] Start: 2023 End: 2023 ambulatory Silvio Lira MD Work Phone: [facility] Comment on above: Sleeping Pill Start: 10-17-2023 End: 10-21-2023 ambulatory Nancy Vale PA-C Work Phone: Pulmonary Medicine Start: 10-15-2023 End: 10-15-2023 Telephone encounter Silvio Lira MD Work Phone: [facility] Comment on above: Insurance Authorizat ion (/) Start: 10-12-2023 End: 10-12-2023 Office outpatient visit 25 minutes Silvio Lira MD Work Phone: [facility] Comment on above: Gender incongruence (Primary Dx); Anxiety; Depression, unspecified depression type; PTSD (post-traumatic stress disorder); Status post hysterectomy with oophorectomy; Housing instability, currently housed; Moderate mixed hyperlipidemia not requiring statin therapy; Vaping-related disorder; History of stroke Start: 10-10-2023 End: 10-10-2023 Telephone encounter Silvio Lira MD Work Phone: [facility] Comment on above: Patient Update Start: 10-08-2023 ambulatory SILVIO LIRA Facility:[facility] Start: 10-08-2023 End: 10-08-2023 Subsequent hospital visit by physician Stereo/Ultrasound Biopsy [facility] RADIO MAMMO REFLECTIONS [facility] Comment on above: Abnormal ultrasound of breast [R92.8] Start: 10-04-2023 End: 10-04-2023 ambulatory Silvio Lira MD Work Phone: [facility] Comment on above: Quiting Smoking [employer] Start: 10-02-2023 End: 10-03-2023 [facility] Start: 09-26-2023 ambulatory Silvio Lira MD Work Phone: [facility] Comment on above: Testosterone Start: 09-03-2023 End: 09-03-2023 Subsequent hospital visit by physician [facility] Work Phone: Radiology Comment on above: Abnormal mammogram [ R92.8] Start: 08-23-2023 Telephone encounter Pati GARCIA Work Phone: [facility] Comment on above: Results Start: 08-22-2023 ambulatory Silvio Lira MD Work Phone: [facility] Comment on above: Bladder Infection; U TI Start: 08-22-2023 End: 08-22-2023 Patient encounter procedure Pati GARCIA Work Phone: [facility] Comment on above: Acute UTI (Primary D x); Urinary frequency Start: 08-14-2023 End: 10-10-2023 Telephone encounter Raj Ocampo MD Work Phone: Mammogram Comment on above: Orders; Results Start: 08-10-2023 ambulatory Silvio Lira MD Work Phone: [facility] Comment on above: Had to reschedule Start: 08-09-2023 End: 08-09-2023 Subsequent hospital visit by physician Screen Mammo [facility] Comment on above: Arrived Start: 08-01-2023 ambulatory Silvio Lira MD Work Phone: [facility] Comment on above: MEDICATION Start: 07-29-2023 End: 07-29-2023 Emergency department patient visit [facility] Facility:[facility] Start: 07-29-2023 End: 07-29-2023 Patient encounter procedure Ashvin Stone APRN.CNP Work Phone: [facility] Comment on above: Severe headache (Eliza piero Dx) Start: 07-23-2023 ambulatory Silvio Lira MD Work Phone: [facility] Comment on above: Mamagram & Refils Start: 06-14-2023 ambulatory Mariaelena Oates Facilit y:[facility] Start: 05-30-2023 ambulatory Mariaelena Oates Facilit y:[facility] Start: 05-25-2023 ambulatory Silvio Lira MD Work Phone: [facility] Comment on above: Getting Back To You Start: 04-12-2023 Refill Silvio Lira MD Work Phone: [facility] Comment on above: Refill Request Start: 04-04-2023 End: 04-04-2023 Evaluation and management of inpatient ABIMAEL MANN Facility:[id number] Start: 04-02-2023 ambulatory Chelsea Rivas MD Work Phone: Neurosurgery Comment on above: Arterial ischemic st roke (HCC) (Primary Dx) Start: 04-02-2023 Telemedicine consult ation with patient Chelsea Rivas MD Work Phone: [facility] Start: 03-21-2023 End: 03-22-2023 Emergency department patient visit KARLY BRANDT MD~[id number] [facility] Start: 02-05-2023 End: 02-06-2023 Emergency department patient visit PHYSIC[facility] Start: 01-21-2023 End: 01-21-2023 Subsequent hospital visit by physician Screen Mammo [facility] Comment on above: Encounter for screen ing mammogram for breast cancer [Z12.31] Start: 01-16-2023 End: 01-16-2023 ambulatory Silvio Lira MD Work Phone: [facility] Comment on above: Gender dysphoria in adult (Primary Dx); Tobacco use Start: 01-16-2023 End: 01-16-2023 Telemedicine consultation with patient Silvio Lira MD Work Phone: [facility] Start: 01-15-2023 Telephone encounter Silvio Valdivia Work Phone: [facility] Start: 01-14-2023 Chart abstracting Kimberly Candelario MD Work Phone: Plastic Surgery Comment on above: PHOTOS TAKEN Start: 12-31-2022 Refill Silvio Lira MD Work Phone: [facility] Comment on above: Refill Request Start: 12-24-2022 ambulatory Silvio Lira MD Work Phone: [facility] Comment on above: Services Refill Request Start: 12-20-2022 Refill Silvio Lira MD Work Phone: [facility] Comment on above: Refill Request Start: 11-26-2022 ambulatory Silvio Lira MD Work Phone: [facility] Start: 11-26-2022 Patient encounter procedure Silvio Lira MD Work Phone: [facility] Comment on above: Had to Cancel Appoin tment Start: 11-21-2022 End: 11-21-2022 Office outpatient visit 25 minutes Silvio Lira MD Work Phone: [facility] Comment on above: Gender dysphoria in adult (Primary Dx) Start: 10-10-2022 Refill Silvio Lira MD Work Phone: [facility] Comment on above: Refill Request Start: 09-21-2022 E-mail encounter fro m caregiver Felipa Koo [facility] Start: 09-21-2022 Follow-up encounter Felipa Koo [facility] Comment on above: Care Coordination Fo llow-Up Start: 09-21-2022 Telephone encounter Felipa Wheelerard [facility] Comment on above: TG [facility] Letter Start: 09-11-2022 MC Get Medical Advice Silvio Lira MD Work Phone: [facility] Comment on above: Refills Start: 08-30-2022 Social Work Radha Triplett [facility] Social Work Comment on above: Housing insecurity ( Primary Dx) Start: 08-29-2022 End: 08-29-2022 Office outpatient visit 25 minutes Silvio Lira MD Work Phone: [facility] Comment on above: Gender dysphoria in adult (Primary Dx); Housing insecurity Start: 07-20-2022 ambulatory Silvio Lira MD Work Phone: [facility] Start: 07-20-2022 Letter encounter Silvio Lira MD Work Phone: [facility] Comment on above: Letters Start: 07-12-2022 ambulatory Silvio Lira MD Work Phone: [facility] Start: 07-12-2022 Letter encounter Silvio Lira MD Work Phone: [facility] Comment on above: Letters Start: 07-11-2022 End: 07-11-2022 Emergency department patient visit [facility] Start: 05-25-2022 End: 05-25-2022 Patient encounter procedure Gerry Barton PA-C Work Phone: [facility] Comment on above: Gender incongruence (Primary Dx) Start: 05-25-2022 Telephone encounter Gerry Up chantal CISNEROS Work Phone: [facility] Comment on above: Insurance Authorizat ion Start: 04-20-2022 End: 04-20-2022 [facility] Start: 04-13-2022 ambulatory Raj swenson MD Work Phone: [facility] Comment on above: You still taking pat ients Start: 04-13-2022 End: 04-13-2022 [facility] Start: 04-12-2022 End: 04-12-2022 Patient encounter procedure Abimael Mares Work Phone: Podiatry Comment on above: Tarsal tunnel syndro me of both lower extremities (Primary Dx); Neuropathy Start: 03-20-2022 ambulatory Silvio Lira MD Work Phone: [facility] Comment on above: Testosterone Start: 03-18-2022 MC Get Medical Advice Silvio Lira MD Work Phone: [facility] Comment on above: Transition Start: 03-09-2022 Letter encounter Rosa Lisa MARES Work Phone: [facility] Start: 03-05-2022 End: 03-05-2022 [facility] Start: 02-24-2022 Telephone encounter Vinny mcintosh APRN.CNP Work Phone: [facility] Comment on above: Results Start: 02-23-2022 End: 02-23-2022 Patient encounter procedure Jamila Nation PA-C Work Phone: [facility] Comment on above: Flu-like symptoms (P rimary Dx); Nausea and vomiting, unspecified vomiting type; Diarrhea, unspecified type Start: 02-05-2022 Refill Raj swenson MD Work Phone: [facility] Comment on above: Refill Request; Refi ll Request Start: 01-30-2022 End: 01-30-2022 Emergency department patient visit DILLON TAMAYO DO Facility:B Start: 12-15-2021 End: 12-15-2021 Emergency department patient visit CLEMENT TORRES Facility:[facility] Start: 11-23-2021 End: 11-24-2021 [facility] Start: 11-22-2021 End: 11-22-2021 [facility] Start: 11-20-2021 ambulatory Raj swenson MD Work Phone: [facility] Start: 11-20-2021 Patient encounter procedure Raj Ocampo MD Work Phone: [facility] Comment on above: Referrals Start: 11-10-2021 Social Work Shanti Back [facility] Primary Care Social Work Comment on above: Housing problems (Pr imary Dx); Need for community resource Start: 11-09-2021 ambulatory Silvio Lira MD Work Phone: [facility] Comment on above: Psychiatric Problem Start: 11-09-2021 Telephone encounter Silvio Valdivia Work Phone: [facility] Comment on above: Legal Recovery Specialist - O ther Start: 11-08-2021 ambulatory Silvio Lira MD Work Phone: [facility] Comment on above: Wondering Start: 11-05-2021 End: 11-05-2021 [facility] Start: 10-05-2021 ambulatory UNKNOWN PROVIDER Facili ty:[facility] Start: 09-13-2021 ambulatory Raj swenson MD Work Phone: [facility] Start: 08-29-2021 End: 08-29-2021 [facility] Start: 08-28-2021 ambulatory Silvio Lira MD Work Phone: [facility] Start: 08-28-2021 Patient encounter procedure Silvio Lira MD Work Phone: [facility] Comment on above: December 13 was the e arliest appointment but I got put on waiting list for any cancellations Refill Request Start: 08-07-2021 End: 08-07-2021 [facility] Start: 07-29-2021 ambulatory Silvio Lira MD Work Phone: [facility] Comment on above: Question regarding T ESTOSTERONE TOTAL Start: 07-28-2021 End: 07-28-2021 Office outpatient visit 25 minutes Raj Ocampo MD Work Phone: [facility] Comment on above: Stomach pain (Primar y Dx); Anxiety; Depression, unspecified depression type; PTSD (post-traumatic stress disorder); Diarrhea, unspecified type; Change in bowel habits; Migraine without aura and without status migrainosus, not intractable; Cigarette smoker motivated to quit; Vitamin D deficiency; Chronic midline low back pain with bilateral sciatica; DDD (degenerative disc disease), thoracolumbar Start: 07-28-2021 ambulatory Silvio Lira MD Work Phone: [facility] Comment on above: Question regarding C BC + DIFF Start: 07-17-2021 Telephone encounter Raj childers MD Work Phone: [facility] Comment on above: Release Of Medical R ecords Start: 07-16-2021 ambulatory Silvio Lira MD Work Phone: [facility] Comment on above: Looking for Suggesti ons Start: 07-12-2021 Telephone encounter Delmy weston PhD Work Phone: [facility] Start: 07-10-2021 End: 07-10-2021 [facility] Start: 06-27-2021 Refill Silvio Lira MD Work Phone: [facility] Comment on above: Refill Request Start: 06-26-2021 ambulatory Raj swenson MD Work [facility]: [facility] [facility] Comment on above: Phone number and alina il update Updates Start: 06-22-2021 Refill Raj swenson MD Work Phone: [facility] Comment on above: Refill Request Start: 06-21-2021 ambulatory Silvio Lira MD Work Phone: [facility] Comment on above: Testosterone Start: 06-14-2021 ambulatory Raj swenson MD Work Phone: [facility] Comment on above: Electric wheelchair Start: 06-13-2021 End: 06-13-2021 Emergency department patient visit [facility] Start: 06-08-2021 ambulatory Raj swenson MD Work Phone: [facility] Comment on above: Medication Start: 06-03-2021 End: 06-03-2021 Patient encounter procedure Silvio Lira MD Work Phone: [facility] Comment on above: Gender dysphoria in adult (Primary Dx) Start: 05-02-2021 ambulatory UNKNOWN PROVIDER Facili ty:[facility] Start: 01-30-2021 ambulatory UNKNOWN PROVIDER Facili ty:[facility] Start: 01-26-2021 End: 01-26-2021 ambulatory SELF PATIENT Facility:[facility] Start: 04-11-2020 End: 04-12-2020 Emergency department patient visit Octavio Ruiz Work Phone: [facility] Comment on above: Other migraine witho ut status migrainosus, not intractable (Primary Dx) Start: 11-02-2019 End: 11-02-2019 Emergency department patient visit [facility] Comment on above: Anxiety state (Prima ry Dx) Start: 10-26-2019 End: 10-26-2019 Emergency department patient visit Jose J Shea Nevarez Work Phone: [facility] Comment on above: Lightheadedness (Eliza piero Dx); Nonintractable headache, unspecified chronicity pattern, unspecified headache type; Fatigue, unspecified type Procedures Date Procedure Procedure Detail Performing Clinician Start: 03-12-2024 Lipid 1996 panel - Serum or Plasma Silvio Lira MD Work Phone: Start: 10-08-2023 Bx breast w/device 1st lesion ultrasound guid Yaritza Carlson MD Work Phone: Start: 10-08-2023 Diagnostic mammography computer-aided detcj uni Yaritza Carlson MD Work Phone: Start: 09-03-2023 Us breast uni real time with image limited Russ Faustin MD Work Phone: Start: 09-03-2023 Digital breast tomosynthesis bilateral Raj Ocampo MD Work Phone: Start: 08-22-2023 Urnls dip stick/tablet rgnt auto w/o microscopy Pati GARCIA Work Phone: Start: 04-02-2023 Lipid 1996 panel - Serum or Plasma Silvio Lira MD Work Phone: Start: 03-05-2022 Plain chest X-ray Start: 03-01-2022 Lipid 1996 panel - Serum or Plasma Silvio Lira MD Work Phone: Start: 08-07-2021 Computed tomography of abdomen and pelvis with intravenous contrast Start: 07-10-2021 Computed tomography of abdomen and pelvis with intravenous contrast Start: 07-10-2021 US scan of gallbladder Start: 06-13-2021 Plain x-ray of pelvis and lower extremity Start: 10-26-2019 Urnls dip stick/tablet rgnt auto w/o microscopy Shanti Kimball Work Phone: Start: 10-26-2019 Ct head/brain w/o contrast material Shanti Kimball Work Phone: Start: 10-26-2019 Blood count complete auto&auto difrntl wbc Shanti Kimball Work Phone: Start: 10-26-2019 Comprehensive metabolic panel Shanti Kimball Work Phone: Start: 09-11-2019 Mammography Silvio Lira MD Work Phone: Start: 08-31-2019 H/O: hysterectomy Status post hysterectomy with oophorectomy Silvio Lira MD Work Phone: Start: 08-31-2019 H/O: surgery Status post hysterectomy with oophorectomy Silvio Lira MD Work Phone: Start: 03-15-2019 Ecg routine ecg w/least 12 lds i&r only Start: 06-16-2001 Microscopic observation [Identifier] in Cervix by Cyto stain Delmy Verdugo PhD Work Phone: H/O: surgery Status post hysterectomy with oophorectomy Silvio Lira MD Work Phone: Streptococcus pyogen es antigen assay Urine culture Urine culture Plan of Treatment Date Care Activity Detail Author Start: 03-12-2029 Lipid panel Lipid Screening [facility] Start: 04-02-2028 Lipid panel Lipid Screening [facility] Start: 03-02-2027 HPV TESTING HPV TESTING [facility] Start: 03-02-2027 PAP TESTING PAP TESTING [facility] Start: 03-02-2027 Screening for malign ant neoplasm of cervix [facility] Start: 03-01-2027 Lipid 1996 panel - Serum or Plasma Lipid Screening [facility] Start: 03-01-2027 Lipid panel Lipid Screening [facility] Start: 03-01-2027 LIPID SCREEN LIPID SCREEN [facility] Start: 04-03-2026 [facility] Start: 01-23-2026 Lipid panel [facility] Start: 01-23-2026 LIPID SCREEN LIPID SCREEN [facility] Start: 03-01-2025 DIABETES SCREEN DIABETES SCREEN [facility] Start: 03-01-2025 Diabetes Screening [facility] Start: 09-14-2024 End: 12-14-2024 TOXICOLOGY SCREEN, ROUTINE URINE TOXICOLOGY SCREEN, ROUTINE URINE Lab Routine Anxiety Expected: 09/14/2024 (Approximate), Expires: 12/14/2024 [facility] Work Phone: Comment on above: Expected: 09/14/2024 (Approximate), Expires: 12/14/2024 Start: 09-03-2024 Cholesterol [Mass/volume] in Serum or Plasma [facility] Start: 09-02-2024 Screening for malign ant neoplasm of breast Mammogram Screening [facility] Start: 03-12-2024 End: 03-12-2024 ambulatory 03/12/2024 3:00 PM EST Results Only Abdoul [facility] Draw Station [address] [place] [address] Abdoul [facility] Draw Station Start: 03-04-2024 End: 03-04-2024 Patient encounter procedure 03/04/2024 10:00 AM EST Office Visit [facility] [address] [place] [phone] [place] [address] [place] [address] Hormone therapy [facility] Comment on above: Hormone therapy Start: 01-24-2024 DIABETES SCREEN DIABETES SCREEN [facility] Start: 01-22-2024 Screening for malign ant neoplasm of breast Mammogram Screening [facility] Start: 01-13-2024 End: 01-13-2024 ambulatory 01/13/2024 3:30 PM EST Results Only Abdoul [facility] Draw Station [address] [place] [address] Abdoul [facility] Draw Station Start: 01-11-2024 End: 04-11-2024 CBC W Auto Differential panel - Blood COMPLETE BLOOD COUNT AND DIFFERENTIAL Lab Routine Gender incongruence Expected: 01/11/2024, Expires: 04/11/2024 [facility] Comment on above: Expected: 01/11/2024 , Expires: 04/11/2024 Start: 01-11-2024 End: 04-11-2024 Estradiol (E2) [Mass/volume] in Serum or Plasma ESTRADIOL-17B BLD Lab Routine Gender incongruence Expected: 01/11/2024, Expires: 04/11/2024 [facility] Work Phone: Comment on above: Expected: 01/11/2024 , Expires: 04/11/2024 Start: 01-11-2024 End: 04-11-2024 Lipid 1996 panel - Serum or Plasma LIPID PANEL BASIC Lab Routine Moderate mixed hyperlipidemia not requiring statin therapy History of stroke Expected: 01/11/2024, Expires: 04/11/2024 [facility] Comment on above: Expected: 01/11/2024 , Expires: 04/11/2024 Start: 01-11-2024 End: 04-11-2024 Testosterone [Mass/volume] in Serum or Plasma TESTOSTERONE, TOTAL Lab Routine Gender incongruence Expected: 01/11/2024, Expires: 04/11/2024 [facility] Comment on above: Expected: 01/11/2024 , Expires: 04/11/2024 Start: 12-30-2023 End: 12-30-2023 ambulatory 12/30/2023 4:20 PM EST [facility] [address] [place] [address] [place] [address] [place] [address] Meds and non smoking therapy meds [facility] Comment on above: Meds and non smoking therapy meds Start: 12-23-2023 End: 12-23-2023 Patient encounter procedure 12/23/2023 1:00 PM EST Office Visit Pulmonary Medicine [address] [place] [address] Kaity Rico APRN.MATERIAL REPROCESSING ASSOCIATE [address] [place] [address] What this is for and what I need to do [facility] Comment on above: What this is for and what I need to do Start: 12-17-2023 End: 12-17-2023 Patient encounter procedure 12/17/2023 2:40 PM EST Office Visit [facility] [address] [place] [address] [place] [address] [place] [address] concerns [facility] Comment on above: concerns Start: 11-22-2023 Covid-19 Vaccine (#1) Covid-19 Vacci ne (#1) [facility] Comment on above: Postponed from 06/02 (Declined at this time) Start: 11-22-2023 Covid-19 Vaccine () Covid-19 Vaccine () [facility] Comment on above: Postponed from 10/12 (Declined at this time) Start: 10-13-2023 Covid-19 Vaccine (1 - 2023-24 season) Covid-19 Vaccine ( season) [facility] Start: 10-13-2023 Covid-19 Vaccine ( season) Covid-19 Vaccine () [facility] Start: 10-13-2023 Influenza vaccination Influenza Vacc ine (#1) [facility] Start: 10-12-2023 End: 10-12-2023 Patient encounter procedure 10/12/2023 9:40 AM EDT Office Visit [facility] [address] [place] [address] [place] [address] [place] [address] Hormone therapy [facility] Comment on above: Hormone therapy Start: 10-08-2023 End: 10-08-2023 Patient encounter procedure 10/08/2023 8:30 AM EDT Appointment [facility] [address] [place] [address] Abnormal ultrasound of breast [R92.8]/Right Ultrasound biopsy [facility] Comment on above: Abnormal ultrasound of breast [R92.8]/Right Ultrasound biopsy Start: 09-09-2023 End: 09-09-2023 Patient encounter procedure 09/09/2023 3:45 PM EDT Office Visit General Surgery [address] [place] [address] Yaritza Carlson MD [address] [facility] [place] [phone] BIOPSY CONSULT - RT BREAST General Surgery Comment on above: BIOPSY CONSULT - RT BREAST Start: 09-03-2023 End: 09-03-2023 Patient encounter procedure Mammogram Comment on above: callback call back Comp- LT Long overdu e callback 01/22/23 Start: 08-22-2023 End: 11-21-2023 Urinalysis complete panel - Urine URINALYSIS, WITH MICROSCOPIC Lab Routine Dysuria Urinary frequency Expected: 08/22/2023, Expires: 11/21/2023 [facility] Work Phone: Comment on above: Expected: 08/22/2023 , Expires: 11/21/2023 Start: 08-12-2023 End: 08-12-2023 Patient encounter procedure 08/12/2023 10:40 AM EDT Office Visit [facility] [address] [place] [address] [place] [address] [place] [address] concerns [facility] Comment on above: concerns Start: 08-09-2023 End: 08-09-2023 Patient encounter procedure 08/09/2023 2:50 PM EDT Appointment Mammogram [address] [place] [address] Mammogram Start: 03-02-2023 Screening for malign ant neoplasm of cervix Cervical Cancer Screening [facility] Start: 11-21-2022 End: 01-21-2023 Estradiol (E2) [Mass/volume] in Serum or Plasma [facility] Work Phone: Comment on above: Expected: 11/21/2022 , Expires: 01/21/2023 Start: 11-21-2022 End: 01-21-2023 Testosterone [Mass/volume] in Serum or Plasma [facility] Work Phone: Comment on above: Expected: 11/21/2022 , Expires: 01/21/2023 Start: 08-24-2022 End: 10-24-2022 CBC W Auto Differential panel - Blood CBC + DIFF Lab Routine Gender incongruence Expected: 08/24/2022 (Approximate), Expires: 10/24/2022 [facility] Work Phone: Comment on above: Expected: 08/24/2022 (Approximate), Expires: 10/24/2022 Start: 08-24-2022 End: 10-24-2022 Estradiol (E2) [Mass/volume] in Serum or Plasma ESTRADIOL-17B BLD Lab Routine Gender incongruence Expected: 08/24/2022 (Approximate), Expires: 10/24/2022 [facility] Work Phone: Comment on above: Expected: 08/24/2022 (Approximate), Expires: 10/24/2022 Start: 08-24-2022 End: 10-24-2022 Testosterone [Mass/volume] in Serum or Plasma TESTOSTERONE TOTAL Lab Routine Gender incongruence Expected: 08/24/2022 (Approximate), Expires: 10/24/2022 [facility] Work Phone: Comment on above: Expected: 08/24/2022 (Approximate), Expires: 10/24/2022 Start: 08-09-2022 HPV TESTING HPV TESTING [facility] Start: 08-09-2022 PAP TESTING PAP TESTING [facility] Start: 02-23-2022 End: 03-09-2022 Influenza virus A and B RNA and SARS-CoV-2 (COVID-19) N gene panel - Respiratory specimen by [place] with probe detection [facility] Work Phone: Comment on above: Expected: 02/23/2022 , Expires: 03/09/2022 Start: 11-22-2021 [facility] Work Phone: Start: 11-11-2021 Influenza vaccination Influenza Vacc ine (#1) [facility] Start: 10-05-2021 End: 10-05-2021 ambulatory 10/05/2021 [facility] Delmy Verdugo, PhD [address] [place] [address] [facility] Start: 09-02-2021 End: 11-02-2021 CBC W Auto Differential panel - Blood CBC + DIFF Lab Routine Gender dysphoria in adult Expected: 09/02/2021, Expires: 11/02/2021 [facility] Work Phone: Comment on above: Expected: 09/02/2021 , Expires: 11/02/2021 Start: 09-02-2021 End: 11-02-2021 Estradiol (E2) [Mass/volume] in Serum or Plasma ESTRADIOL-17B BLD Lab Routine Gender dysphoria in adult Expected: 09/02/2021, Expires: 11/02/2021 [facility] Work Phone: Comment on above: Expected: 09/02/2021 , Expires: 11/02/2021 Start: 09-02-2021 End: 11-02-2021 Testosterone [Mass/volume] in Serum or Plasma TESTOSTERONE TOTAL Lab Routine Gender dysphoria in adult Expected: 09/02/2021, Expires: 11/02/2021 [facility] Work Phone: Comment on above: Expected: 09/02/2021 , Expires: 11/02/2021 Start: 08-29-2021 [facility] Work Phone: Start: 08-23-2021 COVID-19 VACCINE (#1) COVID-19 VACCI NE (#1) [facility] Comment on above: Postponed from 12/02 (Declined at this time) Start: 08-23-2021 COVID-19 VACCINE (1) COVID-19 VACCIN E (1) [facility] Comment on above: Postponed from 12/02 (Declined at this time) Start: 07-28-2021 End: 09-27-2021 H PYLORI ABS, IGG AND IGA H PYLORI ABS, IGG AND IGA Lab Routine Stomach pain Expected: 07/28/2021, Expires: 09/27/2021 [facility] Work Phone: Comment on above: Expected: 07/28/2021 , Expires: 09/27/2021 Start: 07-10-2021 Bacteria identified in Urine by Culture Urine Culture [facility] Work Phone: Start: 06-20-2021 SHINGRIX VACCINE (1 of 2) SHINGRIX VACCINE (1 of 2) [facility] Comment on above: Postponed from 12/02 (Declined at this time) Start: 06-20-2021 Urine microalbumin profile DTAP,TDAP,TD (1 - Tdap) [facility] Comment on above: Postponed from 12/02 (Declined at this time) Start: 09-10-2020 Mammography [facility] Start: 09-10-2020 [facility] Start: 10-13-2019 Influenza vaccination Flu vaccine (# 1) [facility] [place] Start: 2018 Influenza vaccination LUNG CANCER SC REENING [facility] Start: 2018 Measurement of occul t blood in single stool specimen FIT [facility] Start: 2018 Pneumococcal vaccination Pneumococcal Vaccine(s) (50+ yrs) (2 of 2 - PCV) [facility] Start: 2018 Screening for malign ant neoplasm of colon CRC Screening [facility] Start: 2018 Screening for malign ant neoplasm of lung Lung Cancer Screening [facility] Start: 2018 Shingles (RZV) Vacci ne (1 of 2) Shingles (RZV) Vaccine (1 of 2) [facility] Start: 2018 SHINGRIX VACCINE (1 of 2) SHINGRIX VACCINE (1 of 2) [facility] Start: 2013 COLOGUARD (FIT-DNA) COLOGUARD (FIT-D NA) [facility] Start: 2013 Colonoscopy COLONOSCOPY [facility] Start: 2013 COLORECTAL CANCER SCREENING COLORECTAL CANCER SCREENING [facility] Start: [address] COLONOGRAPHY [facility] Start: 2013 FECAL OCCULT BLOOD FECAL OCCULT BLOO D [facility] Start: 2013 Screening for malign ant neoplasm of colon [facility] Start: 2013 SIGMOIDOSCOPY SIGMOIDOSCOPY [facility] Start: 12-23-2011 PNEUMOCOCCAL (2 - PCV) PNEUMOCOCCAL (2 - PCV) [facility] Start: 12-23-2011 Pneumococcal vaccination Pneumococcal Vaccine (2 of 2 - PCV) [facility] Start: 12-23-2011 Pneumococcal Vaccine : 50+ (2 of 2 - PCV) Pneumococcal Vaccine: 50+ (2 of 2 - PCV) [facility] Start: 06-16-2004 Screening for malign ant neoplasm of cervix Pap Smear [facility] Start: 12-03-1987 HEPATITIS A (1 of 2 - Risk 2-dose series) HEPATITIS A (1 of 2 - Risk 2-dose series) [facility] Start: 12-03-1987 Hepatitis A (HAV) Vaccine (1 of 2 - Risk 2-dose series) Hepatitis A (HAV) Vaccine (1 of 2 - Risk 2-dose series) [facility] Start: 12-03-1987 Hepatitis A Vaccine (1 of 2 - Risk 2-dose series) Hepatitis A Vaccine (1 of 2 - Risk 2-dose series) [facility] Start: 12-03-1987 Hepatitis B vaccination Hepati tis B (HBV) Vaccine (1 of 3 - 19+ 3-dose series) [facility] Start: 12-03-1987 Hepatitis B Vaccine (1 of 3 - 19+ 3-dose series) Hepatitis B Vaccine (1 of 3 - 19+ 3-dose series) [facility] Start: 12-03-1987 Urine microalbumin profile [facility] Start: 1986 Hepatitis C screening Hepatitis C An tibody [facility] Start: 1986 Tetanus + diphtheria + acellular pertussis vaccine (product) [facility] Start: 1973 COVID-19 Vaccine (#1) COVID-19 Vacci ne (#1) [facility] Start: 1969 HEPATITIS A (1 of 2 - Risk 2-dose series) HEPATITIS A (1 of 2 - Risk 2-dose series) [facility] Start: 06-02-1969 COVID-19 VACCINE (#1) COVID-19 VACCI NE (#1) [facility] Start: 1968 HEPATITIS B (1 of 3 - 3-dose series) HEPATITIS B (1 of 3 - 3-dose series) [facility] Start: 1968 Hepatitis B Vaccine (1 of 3 - 3-dose series) Hepatitis B Vaccine (1 of 3 - 3-dose series) [facility] Start: 1968 Screening for malign ant neoplasm of colon Colonoscopy [facility] Bacteria identified in Urine by Culture Urine Culture [facility] Work Phone: Bacteria identified in Urine by Culture URINE CULTURE Microbiology Routine Urinary frequency Ordered: 08/22/2023 [facility] Work Phone: Comment on above: Ordered: 08/22/2023 End: 10-26-2019 [facility] Once for 1 Occurrenc es starting 10/26/2019 until 10/26/2019 COVID-19 COVID-19 Lab STA T 10/26/2019 6:04 PM EDT [facility] FRANSISCO SCREENING Ra diology Routine Encounter for screening mammogram for breast cancer 01/21/2023 2:01 PM EST [facility] Work Phone: Patient Education [facility] Work Phone: Patient referral [facility] Work Phone: End: 10-13-2022 Screening mammography bi 2-view breast inc cad FRANSISCO SCREENING Radiology Routine Encounter for screening mammogram for breast cancer 1 Occurrences starting 09/13/2021 until 10/13/2022 [facility] Work Phone: Comment on above: 1 Occurrences starti ng 09/13/2021 until 10/13/2022 Streptococcus pyogen es antigen assay Group A Streptococcus Rapid Screen [facility] Work Phone: End: 10-08-2023 SURGICAL PATHOLOGY [facility] Work Phone: Comment on above: ONCE for 1 Occurrenc es starting 10/08/2023 until 10/08/2023, 1 completed [facility] Immunizations Immunization Date Immunization Notes Care Provider [facility] 12-22-2010 influenza virus vacc ine, unspecified formulation Silvio Lira MD Work Phone: [facility] Work Phone: 12-22-2010 pneumococcal polysaccharide vaccine, 23 valent Silvio Lira MD Work Phone: [facility] Work Phone: Payers Date Payer Category Payer Self-pay [id number] 2019 Medicaid [facility] [id number] 2019-Present [phone] [address] [place] [address] Medicaid [id number] 2005 Medicaid [id number] 2005 Medicaid HMO JAYLENSHANDRA calvin [id number] 2005 Unknown [id number] 1968 Unknown [id number] 1968 Unknown [id number] 1968 Unknown [id number] 1968 Unknown [id number] 1968 Unknown [id number] 1968 Unknown [id number] 1968 Unknown [id number] 1968 Unknown [id number] 1959 Medicaid [id number] Unknown [id number] Unknown [id number] Unknown [id number] Unknown [id number] Unknown [id number] Social History Date Type Detail Facility Start: 10-26-2019 End: 02-23-2022 Tobacco smoking status NHIS Current every day smoker [facility] History of tobacco use Pipe Smoker [facility] Start: 10-26-2019 End: 10-12-2023 Tobacco use and exposure Never used [facility] Start: 10-26-2019 End: 04-12-2020 Alcohol intake Ex-drinker (finding) [facility] Start: 1970 Sex Assigned At Not on file [facility] [employer] Start: 05-24-2021 End: 07-28-2021 Exposure to SARS-CoV-2 (event) Not sure [facility] [place] History of tobacco use Cigarette Smoker [facility] Start: 06-03-2021 End: 03-10-2024 Alcohol intake Current non-drinker of alcohol (finding) [facility] Start: 03-09-2019 End: 05-21-2022 History SDOH Alcohol Frequency 1 [facility] Start: 07-31-2019 History SDOH Alcohol Std Drinks 98 [facility] Start: 12-22-2010 History SDOH Alcohol Comment Patient is a recovering alcoholic. She is sober as of 03/2007 [facility] Start: 11-19-2019 History SDOH Social Connections Phone 3 [facility] Start: 03-09-2019 End: 07-31-2019 History SDOH Social Connections Membership 2 [facility] Start: 03-09-2019 End: 05-21-2022 History SDOH Social Connections Living 5 [facility] Start: 03-09-2019 End: 05-21-2022 History SDOH Physical Activity DPW 0 [facility] Start: 07-31-2019 Education 21 [facility] Start: 1970 Sex Assigned At Female [facility] Start: 06-13-2021 End: 04-02-2023 Tobacco smoking status NHIS Unknown if ever smoked [facility] Start: 09-21-2019 None [facility] Start: 09-21-2019 Alone [facility] Start: 06-13-2021 Cigarettes [facility] Start: 09-14-2019 Tobacco smoking status NHIS Never smoked tobacco [facility] Start: 08-09-2017 End: 09-09-2023 Cigarettes smoked current (pack per day) - Reported 1 [facility] Start: 05-21-2022 End: 09-09-2023 Social connection and isolation panel [facility] Do you belong to any clubs or organizations such as zoroastrianism groups, unions, fraternal or athletic groups, or school groups? No [facility] Are you now , , , , never or living with a partner? [facility] [facility] How often to you hav e a drink containing alcohol? Never [facility] Start: 03-09-2024 How many standard drinks containing alcohol do you have on a typical day? Patient does not drink [facility] How hard is it for y ou to pay for the very basics like food, housing, medical care, and heating Very hard [facility] Do you feel stress - tense, restless, nervous, or anxious, or unable to sleep at night because your mind is troubled all the time - these days [OSQ] Only a little [facility] (I/We) worried wheth er (my/our) food would run out before (I/we) got money to buy more. Never true [facility] In the past 12 month s, was there a time when you were not able to pay the mortgage or rent on time? Yes [facility] Start: 01-26-2021 Gender identity [id number] transsexual (finding) [facility] Start: 03-18-2022 Sexual orientation Bisexual (finding) [facility] Start: 11-21-2022 Tobacco smoking status NHIS Ex-smoker [facility] History of tobacco use Current smoker [facility] Start: 01-27-2023 Gender identity Identifies as female gender (finding) [facility] How hard is it for y ou to pay for the very basics like food, housing, medical care, and heating Somewhat hard [facility] Do you feel stress - tense, restless, nervous, or anxious, or unable to sleep at night because your mind is troubled all the time - these days [OSQ] Not at all [facility] Start: 08-22-2023 End: 10-12-2023 Tobacco smoking status NHIS Occasional tobacco smoker [facility] Start: 01-26-2021 Sexual orientation Homosexual (finding) [facility] Start: 09-14-2019 Details of drug misuse behavior Does not misuse drugs (situation) [facility] Start: 09-14-2019 History of sexual behavior Sexually active [facility] Start: 12-16-2011 Sex Female (finding) [facility] Do you feel stress - tense, restless, nervous, or anxious, or unable to sleep at night because your mind is troubled all the time - these days [OSQ] To some extent [facility] (I/We) worried wheth er (my/our) food would run out before (I/we) got money to buy more. Often true [facility] Functional Status Date Assessment Result Facility 09-14-2024 Total score [AUDIT-C] 0 09/15/19 12:56 PM EDT User, Angela [facility] 09-14-2024 How often to you hav e a drink containing alcohol? Never 09/14/2024 12:56 PM EDT User, Angela Never [facility] 09-14-2024 Functional status Patient does n ot drink 09/14/2024 12:56 PM EDT User, Angela Patient does not drink [facility] 09-14-2024 How often do you hav e 6 or more drinks on 1 occasion? Never 09/14/2024 12:56 PM EDT User, Angela Never [facility] 07-22-2014 Are you deaf, or do you have serious difficulty hearing No 07/22/2014 1:53 PM Tono Ernst [facility] 07-22-2014 Are you blind, or do you have serious difficulty seeing, even when wearing glasses No 07/22/2014 1:53 PM Tono Ernst [facility] 07-22-2014 Do you have serious difficulty walking or climbing stairs No 07/22/2014 1:53 PM Tono Ernst [facility] 07-22-2014 Do you have difficul ty dressing or bathing No 07/22/2014 1:53 PM EDT Tono Baptiste [facility] 07-22-2014 Because of a physica l, mental, or emotional condition, do you have difficulty doing errands alone such as visiting a physician's office or shopping No 07/22/2014 1:53 PM EDT Tono Baptiste [facility] Mental Status Date Assessment Result Facility 08-29-2021 Cognitive function Level Of Cons ciousness Awake;Alert;Appropriate;Fol lows Commands [facility] Work Phone: 07-22-2014 Because of a physica l, mental, or emotional condition, do you have serious difficulty concentrating, remembering, or making decisions No 07/22/2014 1:53 PM EDT Tono Baptiste [facility] Clinical Notes 06-03-2021 to 11-24-2024 Everardo Ray PA-C - 09/14/2024 1:30 PM EDTTelephone Encounter - Emilia Leiva MA - 09/14/2024 10:21 AM EDTTelephone Encounter - Emilia Leiva MA - 09/14/2024 10:21 AM EDT Note Date & Type Note Facility 11-24-2024 Note HNO ID: [id number] Author: EVERARDO RAY PA-C Service: ? Author Type: Physician [employer] Metal [employer] Worker Type: Progress Notes Filed: 11/24/2024 16:24 Note Text: This note was created using Bubblesriter. Subjective VIRTUAL VISIT PROGRESS NOTE This is a virtual visit using Moda2Ride Zoom Video Visit. It required patient-provider interaction for the medical decision making as documented below. I have communicated my name and active licensure. The patient's identity and physical location were verified at the time of this visit. Either the patient or their legal textiles sales representative has been informed of the risks and benefits of -- and alternatives to -- treatment through a remote evaluation and consents to proceed with the evaluation remotely. Cliff Barth is a 53 year old adult who presents today for a virtual visit. PCP: Silvio Lira MD Last OV: 10/12/2023 with Everardo Ray PA-C PMH: gender incongruence, anxiety, arthritis, DDD, scoliosis, MDD, migraine, fibromyalgia, PNES, h/o CVA, Vit D deficiency, h/o EtOH abuse in remission, tobacco abuse, abnl mammogram with benign Bx, h/o cervical cancer s/p hysterectomy (with 1 remaining ovary) . Pt states they cannot speak today communicating with a notepad for the visit #PTSD, depression, anxiety, insomnia Taking sertraline 75 mg daily Currently clonazepam 0.5 mg BID for anxiety Also taking mirtazapine 15 mg daily Has not completed UDS Does not follow with a psychiatrist Also taking gabapentin 100 mg BID for neuropathy Reports losing their voice - has been on and off for months - reports associated migraine headaches, States IBS has been flaring has been unable to leave the home for the UDS Wondering if there is anything that can be done for the worsening IBS since they cannot leave the house 08/28/2022 09/19/2023 09/14/2024 LAKISHA - 7 SCORES Score 4 1 3 HISTORY REVIEWED (electronic chart updated): PAST MEDICAL HISTORY Diagnosis Date Anxiety ANXIETY STATE NOS 02/18/2007 Pseudoseizures. Anxiety state, unspecified 02/18/2007 Arthritis Arthritis Congenital musculoskeletal deformity of spine DDD (degenerative disc disease) 04/13/2009 Degenerative disc disease Depression DEPRESSIVE DISORDER NEC 02/18/2007 Counselling Center: Schizoaffective, borderline personality, dissociative, PTSD. Dysplasia of cervix, low grade (JON 1) 2009 History of psychogenic nonepileptic seizure IDIOPATHIC SCOLIOSIS 2002 Migraine 04/13/2009 Migraine headaches MYALGIA AND MYOSITIS NOS 2002 Fibromyalgia, Lumbago. 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 Video EEG PTSD (post-traumatic stress disorder) Scoliosis Stroke (HCC) mild per pt Vitamin D deficiency 04/14/2009 PAST SURGICAL HISTORY Procedure Laterality Date BX OF BREAST; INCISIONAL DELIVERY ONLY , low cervical DELIVERY ONLY , low cervical DILATION AND CURETTAGE DXAND/THER NONOBSTETRIC Dilation AND curettage HYSTERECTOMY HX 2010 abnormal paps LIG/TRNSXJ FLP TUBE ABDL/VAG APPR UNI/BI Tubal ligation PAST SURGICAL HISTORY OF skin graft to ankle Family History Adopted: Yes Problem Relation Age of Onset Cancer Mother of pancreatic cancer Diabetes Sister Heart Brother Possibably has cancer as well SOCIAL HISTORY[1] Current Outpatient Medications Medication Sig Dispense Refill sertraline (ZOLOFT) 50 mg tablet Take 1.5 tablets by mouth once daily. 45 tablet 2 gabapentin (NEURONTIN) 100 mg capsule Take 1 capsule by mouth two times a day for 180 days. 180 capsule 1 clonazePAM (KLONOPIN) 0.5 mg tablet Take 1 tablet by mouth two times a day for 30 days. 60 tablet 0 mirtazapine (REMERON) 15 mg tablet Take 1 tablet by mouth daily at bedtime. 90 tablet 3 MYRBETRIQ 25 mg Tb24 Take 1 tablet by mouth once daily. 90 tablet 1 testosterone (ANDROGEL) 50 mg / 5 g (1%) Apply 2 Packets as directed once daily for 90 days. 900 g 0 rosuvastatin (CRESTOR) 20 mg tablet Take 1 tablet by mouth daily at bedtime. 30 tablet 0 albuterol (PROVENTIL) 2.5 mg /3 mL (0.083 %) nebulizer solution Use 3 mL via nebulizer every 4 hours as needed for wheezing/shortness of breath. Use over 5-15minutes. 3 mL 3 albuterol HFA (PROAIR HFA) 90 mcg/actuation inhaler Inhale 2 Puffs as instructed every 4 hours as needed. 3 Each 3 albuterol HFA (PROVENTIL HFA, VENTOLIN HFA) 90 mcg/actuation inhaler Inhale 2 Puffs as instructed every 4 hours as needed for wheezing/shortness of breath. multivitamin tablet Take 1 tablet by mouth once daily. 30 tablet 11 Nebulizer NEBULIZER FOR HOME USE. Asthma 1 Kit 0 No current facility-administered medications for this visit. ALLERGIES Allergen Reactions Atorvastatin Other: See Comments seizure Clopidogrel Other: See Comments seizure Dilaudid [Hydromorp* Nitrofurantoin Other: See Comments seizure Bactrim [Sulfametho* Bees Carbamazepine Other: See Comments Carbatrol [ (more content not included)... [facility] 10-13-2024 Note Patient Outreach (IN TLKB) CLIFF BARTH ([id number]) 1970 F [employer] Date Time Provider Department 10/13/24 SILVIO LIRA During your visit today, we recorded the following information about you: Allergies As of Date: 10/13/2024 Noted Allergy Reaction ATORVASTATIN 10/12/2023 14 - Other: See Comments Comments: seizure CLOPIDOGREL 10/12/2023 14 - Other: See Comments Comments: seizure DILAUDID (HYDROMORPHONE HCL) 02/18/2007 NITROFURANTOIN 10/12/2023 14 - Other: See Comments Comments: seizure BACTRIM (SULFAMETHOXAZOLE-TRIMETH*02/18 BEES 02/18/2007 CARBAMAZEPINE 08/07/2021 14 - Other: See Comments CARBATROL (CARBAMAZEPINE) 2002 9 - Itching Comments: RASH, ITCH CYCLOBENZAPRINE 08/11/2016 14 - Other: See Comments DEMEROL (MEPERIDINE (PF)) 12/28/2005 DILAUDID (HYDROMORPHONE) 04/02/2023 16 - Unknown EFFEXOR (VENLAFAXINE HCL) 12/28/2005 ESCITALOPRAM 08/11/2016 14 - Other: See Comments FAMOTIDINE 10/12/2023 14 - Other: See Comments Comments: seizure FLEXERIL (CYCLOBENZAPRINE HCL) 08/14/2011 2 - Rash HYDROXYZINE 08/11/2016 14 - Other: See Comments INFLUENZA VIRUS VACCINES 06/13/2021 16 - Unknown LACTOSE 12/28/2005 LACTOSE 04/02/2023 16 - Unknown LEXAPRO (ESCITALOPRAM OXALATE) 12/28/2005 MEPERIDINE 08/11/2016 14 - Other: See Comments NAPROSYN (NAPROXEN) 08/14/2011 2 - Rash NAPROXEN 08/11/2016 14 - Other: See Comments NORFLEX (ORPHENADRINE) 02/20/2023 16 - Unknown ORPHENADRINE 08/07/2021 14 - Other: See Comments PAROXETINE 08/11/2016 14 - Other: See Comments PEXEVA (PAROXETINE) 02/18/2007 QUETIAPINE 08/11/2016 14 - Other: See Comments SEROQUEL (QUETIAPINE FUMARATE) 08/14/2011 2 - Rash SULFAMETHOXAZOLE 08/11/2016 14 - Other: See Comments TOMATO 06/27/2015 8 - GI Upset Comments: Tomato sauce TRIMETHOPRIM 08/11/2016 14 - Other: See Comments VENLAFAXINE 08/11/2016 14 - Other: See Comments VENOM-HONEY BEE 08/11/2016 14 - Other: See Comments VISTARIL (HYDROXYZINE HCL) 12/28/2005 WELLBUTRIN (BUPROPION) 08/03/2019 2 - Rash Comments: Ineffective and broke out in rash Date Reviewed: 03/10/2024 Reviewed by: Josey Henson LPN - Fully Assessed Visit Diagnosis:Encounter for screening mammogram for breast cancer [Z12.31] Order(s):[facility] SCREENING [facility] [[id number]] Order #: [id number] FUTURE Prescriptions as of 11/13/2024 - gabapentin (NEURONTIN) 100 mg capsule Take 1 capsule by mouth two times a day for 180 days. - sertraline (ZOLOFT) 50 mg tablet Take 1.5 tablets by mouth once daily. - clonazePAM (KLONOPIN) 0.5 mg tablet Take 1 tablet by mouth two times a day for 30 days. - mirtazapine (REMERON) 15 mg tablet Take 1 tablet by mouth daily at bedtime. - MYRBETRIQ 25 mg Tb24 Take 1 tablet by mouth once daily. - testosterone (ANDROGEL) 50 mg / 5 g (1%) Apply 2 Packets as directed once daily for 90 days. - rosuvastatin (CRESTOR) 20 mg tablet Take 1 tablet by mouth daily at bedtime. - albuterol (PROVENTIL) 2.5 mg /3 mL (0.083 %) nebulizer solution Use 3 mL via nebulizer every 4 hours as needed for wheezing/shortness of breath. Use over 5-15minutes. - albuterol HFA (PROAIR HFA) 90 mcg/actuation inhaler Inhale 2 Puffs as instructed every 4 hours as needed. - albuterol HFA (PROVENTIL HFA, VENTOLIN HFA) 90 mcg/actuation inhaler Inhale 2 Puffs as instructed every 4 hours as needed for wheezing/shortness of breath. - multivitamin tablet Take 1 tablet by mouth once daily. - Nebulizer NEBULIZER FOR HOME USE. Asthma Meds Comments as of 04/02/2023: This is from [facility] . List from daughter is dated 2016 - did not use. Problem List As Of Date 10/13/2024 Noted Resolved Myalgia and myositis [[id number]] 2002 IDIOPATHIC SCOLIOSIS [M41.20] 2002 DRUG ERUPTION///DRUG DERMATITIS NOS [L27.0] 01/02/2006 DYSCHROMIA UNSPECIFIED [L81.9] 01/02/2006 Anxiety [F41.9] 02/18/2007 Depression [F32.A] 02/18/2007 DDD (Degenerative Disc Disease) [TJR3618] 04/13/2009 Migraine [G43.909] 04/13/2009 Vitamin D Deficiency [E55.9] 04/14/2009 Fibrocystic breast disease [N60.19] 11/02/2011 Herpes simplex infection of genitourinary syste*08/15/2017 03/30/2024 Status post hysterectomy with oophorectomy [Z90*08/31/2019 Psychogenic nonepileptic seizure [F44.5] 10/13/2019 Acquired absence of both cervix and uterus [Z90*01/05/2017 Gender dysphoria in adult [F64.0] 08/22/2020 Cigarette smoker motivated to quit [F17.210] 08/22/2020 Tobacco use [Z72.0] 01/16/2023 Stroke aborted by administration of thrombolyti*04/02/2023 04/03/2023 Left hemiparesis (HCC) [G81.94] 04/02/2023 04/03/2023 PTSD (post-traumatic stress disorder) [F43.10] 10/12/2023 Gender incongruence [F64.9] 10/12/2023 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 Author Type: Physician Drywall Metal Stud Worker Type: Progress Notes Filed: 09/14/2024 14:01 Note Text: This note was created using Integromicster. Subjective VIRTUAL VISIT PROGRESS NOTE This is a virtual visit using Moda2Ride Zoom Video Visit. It required patient-provider interaction for the medical decision making as documented below. I have communicated my name and active licensure. The patient's identity and physical location were verified at the time of this visit. Either the patient or their legal textiles sales representative has been informed of the risks and benefits of -- and alternatives to -- treatment through a remote evaluation and consents to proceed with the evaluation remotely. PA Student Shadow: ASHA Bazan Cliff Barth is a 53 year old adult who presents today for a virtual visit. PCP: Silvio Lira MD Last VV: 03/30/[address] Lira PMH: gender incongruence, anxiety, arthritis, DDD, scoliosis, MDD, migraine, fibromyalgia, PNES, h/o CVA, Vit D deficiency, h/o EtOH abuse in remission, tobacco abuse, abnl mammogram with benign Bx, h/o cervical cancer s/p hysterectomy (with 1 remaining ovary) . #Anxiety, depression PTSD Currently on sertraline 50 mg BID, mirtazpine 15 mg daily for sleep , Gabapentin 100 mg BID for neuropathy Clonazepam 0.5 mg BID for anxiety - currently taking it about once a day since they sleep for until 2 p and it makes them tired where they do not need to take it the second dose MHP: None No psychiatrist. #OAB, urinary incontinence Currently on mirabegron 25 mg daily Not currently on GAHT due to other life circumstances HISTORY REVIEWED (electronic chart updated): PAST MEDICAL HISTORY Diagnosis Date Anxiety ANXIETY STATE NOS 02/18/2007 Pseudoseizures. Anxiety state, unspecified 02/18/2007 Arthritis Arthritis Congenital musculoskeletal deformity of spine DDD (degenerative disc disease) 04/13/2009 Degenerative disc disease Depression DEPRESSIVE DISORDER NEC 02/18/2007 Counselling Center: Schizoaffective, borderline personality, dissociative, PTSD. Dysplasia of cervix, low grade (JON 1) 2009 History of psychogenic nonepileptic seizure IDIOPATHIC SCOLIOSIS 2002 Migraine 04/13/2009 Migraine headaches MYALGIA AND MYOSITIS NOS 2002 Fibromyalgia, Lumbago. 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 Video EEG PTSD (post-traumatic stress disorder) Scoliosis Stroke (HCC) mild per pt Vitamin D deficiency 04/14/2009 PAST SURGICAL HISTORY Procedure Laterality Date BX OF BREAST; INCISIONAL DELIVERY ONLY , low cervical DELIVERY ONLY , low cervical DILATION AND CURETTAGE DXAND/THER NONOBSTETRIC Dilation AND curettage HYSTERECTOMY HX 2010 abnormal paps LIG/TRNSXJ FLP TUBE ABDL/VAG APPR UNI/BI Tubal ligation PAST SURGICAL HISTORY OF skin graft to ankle Family History Adopted: Yes Problem Relation Age of Onset Cancer Mother of pancreatic cancer Diabetes Sister Heart Brother Possibably has cancer as well Social History Tobacco Use Smoking status: Some Days Current packs/day: 1.00 Average packs/day: 1 pack/day for 20.0 years (20.0 ttl pk-yrs) Types: Cigarettes Smokeless tobacco: Never Substance Use Topics Alcohol use: No Comment: Patient is a recovering alcoholic. She is sober as of 03/2007 Drug use: No Current Outpatient Medications Medication Sig Dispense Refill gabapentin (NEURONTIN) 100 mg capsule Take 1 capsule by mouth two times a day for 180 days. 180 capsule 1 sertraline (ZOLOFT) 50 mg tablet Take 1.5 tablets by mouth once daily. 45 tablet 0 clonazePAM (KLONOPIN) 0.5 mg tablet Take 1 tablet by mouth two times a day for 30 days. 60 tablet 0 mirtazapine (REMERON) 15 mg tablet Take 1 tablet by mouth daily at bedtime. 90 tablet 3 MYRBETRIQ 25 mg Tb24 Take 1 tablet by mouth once daily. 90 tablet 1 testosterone (ANDROGEL) 50 mg / 5 g (1%) Apply 2 Packets as directed once daily for 90 days. 900 g 0 rosuvastatin (CRESTOR) 20 mg tablet Take 1 tablet by mouth daily at bedtime. 30 tablet 0 albuterol (PROVENTIL) 2.5 mg /3 mL (0.083 %) nebulizer solution Use 3 mL via nebulizer every 4 hours as needed for wheezing/shortness of breath. Use over 5-15minutes. 3 mL 3 albuterol HFA (PROAIR HFA) 90 mcg/actuation inhaler Inhale 2 Puffs as instructed every 4 hours as needed. 3 Each 3 albuterol HFA (PROVENTIL HFA, VENTOLIN HFA) 90 mcg/actuation inhaler Inhale 2 Puffs as instructed every 4 hours as needed for wheezing/shortness of breath. multivitamin tablet Take 1 tablet by mouth once daily. 30 tablet 11 Nebulizer NEBULIZER FOR HOME USE. Asthma 1 Kit 0 No current facility-administered medications for this visit. ALLERGIES Allergen Reactions Atorvastatin Other: See Comments seizure Clopidogrel Other: See Comments seizure Dilaudid [Hydromorp* Nitrofurant (more content not included)... [facility] 09-14-2024 History of Presen t illness Narrative This note was created using [employer]. Subjective VIRTUAL VISIT PROGRESS NOTE This is a virtual visit using Gogot Zoom Video Visit. It required patient-provider interaction for the medical decision making as documented below. I have communicated my name and active licensure. The patient's identity and physical location were verified at the time of this visit. Either the patient or their legal textiles sales representative has been informed of the risks and benefits of -- and alternatives to -- treatment through a remote evaluation and consents to proceed with the evaluation remotely. PA Student Shadow: ASHA Bazan Cliff Barht is a 53 year old adult who presents today for a virtual visit. PCP: Silvio Lira MD Last VV: 03/30/[address] Lira PMH: gender incongruence, anxiety, arthritis, DDD, scoliosis, MDD, migraine, fibromyalgia, PNES, h/o CVA, Vit D deficiency, h/o EtOH abuse in remission, tobacco abuse, abnl mammogram with benign Bx, h/o cervical cancer s/p hysterectomy (with 1 remaining ovary) . #Anxiety, depression PTSD Currently on sertraline 50 mg BID, mirtazpine 15 mg daily for sleep , Gabapentin 100 mg BID for neuropathy Clonazepam 0.5 mg BID for anxiety - currently taking it about once a day since they sleep for until 2 p and it makes them tired where they do not need to take it the second dose MHP: None No psychiatrist. #OAB, urinary incontinence Currently on mirabegron 25 mg daily Not currently on GAHT due to other life circumstances HISTORY REVIEWED (electronic chart updated): PAST MEDICAL HISTORY Diagnosis Date Anxiety ANXIETY STATE NOS 02/18/2007 Pseudoseizures. Anxiety state, unspecified 02/18/2007 Arthritis Arthritis Congenital musculoskeletal deformity of spine DDD (degenerative disc disease) 04/13/2009 Degenerative disc disease Depression DEPRESSIVE DISORDER NEC 02/18/2007 Counselling Center: Schizoaffective, borderline personality, dissociative, PTSD. Dysplasia of cervix, low grade (JON 1) 2009 History of psychogenic nonepileptic seizure IDIOPATHIC SCOLIOSIS 2002 Migraine 04/13/2009 Migraine headaches MYALGIA AND MYOSITIS NOS 2002 Fibromyalgia, Lumbago. 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 Video EEG PTSD (post-traumatic stress disorder) Scoliosis Stroke (HCC) mild per pt Vitamin D deficiency 04/14/2009 PAST SURGICAL HISTORY Procedure Laterality Date BX OF BREAST; INCISIONAL DELIVERY ONLY , low cervical DELIVERY ONLY , low cervical DILATION & CURETTAGE DX&/THER NONOBSTETRIC Dilation & curettage HYSTERECTOMY HX 2010 abnormal paps LIG/TRNSXJ FLP TUBE ABDL/VAG APPR UNI/BI Tubal ligation PAST SURGICAL HISTORY OF skin graft to ankle Family History Adopted: Yes Problem Relation Age of Onset Cancer Mother of pancreatic cancer Diabetes Sister Heart Brother Possibably has cancer as well Social History Tobacco Use Smoking status: Some Days Current packs/day: 1.00 Average packs/day: 1 pack/day for 20.0 years (20.0 ttl pk-yrs) Types: Cigarettes Smokeless tobacco: Never Substance Use Topics Alcohol use: No Comment: Patient is a recovering alcoholic. She is sober as of 03/2007 Drug use: No Current Outpatient Medications Medication Sig Dispense Refill gabapentin (NEURONTIN) 100 mg capsule Take 1 capsule by mouth two times a day for 180 days. 180 capsule 1 sertraline (ZOLOFT) 50 mg tablet Take 1.5 tablets by mouth once daily. 45 tablet 0 clonazePAM (KLONOPIN) 0.5 mg tablet Take 1 tablet by mouth two times a day for 30 days. 60 tablet 0 mirtazapine (REMERON) 15 mg tablet Take 1 tablet by mouth daily at bedtime. 90 tablet 3 MYRBETRIQ 25 mg Tb24 Take 1 tablet by mouth once daily. 90 tablet 1 testosterone (ANDROGEL) 50 mg / 5 g (1%) Apply 2 Packets as directed once daily for 90 days. 900 g 0 rosuvastatin (CRESTOR) 20 mg tablet Take 1 tablet by mouth daily at bedtime. 30 tablet 0 albuterol (PROVENTIL) 2.5 mg /3 mL (0.083 %) nebulizer solution Use 3 mL via nebulizer every 4 hours as needed for wheezing/shortness of breath. Use over 5-15minutes. 3 mL 3 albuterol HFA (PROAIR HFA) 90 mcg/actuation inhaler Inhale 2 Puffs as instructed every 4 hours as needed. 3 Each 3 albuterol HFA (PROVENTIL HFA, VENTOLIN HFA) 90 mcg/actuation inhaler Inhale 2 Puffs as instructed every 4 hours as needed for wheezing/shortness of breath. multivitamin tablet Take 1 tablet by mouth once daily. 30 tablet 11 Nebulizer NEBULIZER FOR HOME USE. Asthma 1 Kit 0 No current facility-administered medications for this visit. ALLERGIES Allergen Reactions Atorvastatin Other: See Comments seizure Clopidogrel Other: See Comments seizure Dilaudid [Hydromorp* Nitrofurantoin Other: See Comments seizure Bactrim [Sulfametho* Bees Carbamazepine Other: See Comments Carbatrol [Carbamaz* Itching RASH, ITCH Cyclobenzaprine Other: See Comments Demerol [Meperidine* Dilaudid [Hydromorp* Unknown Effexor [Venlafaxin* Escitalopram Other: See Comments Famotidine Other: See Comments seizure Flexeril [Cyclobenz* Rash Hydroxyzine Other: See Comments Influenza Virus Vac* Unknown Lactose Lactose Unknown Lexapro [Escitalopr* Meperidine Other: See Comments Naprosyn [Naproxen] Rash Naproxen Other: See Comments Norflex [Orphenadri* Unknown Orphenadrine Other: See Comments Paroxetine Other: See Comments Pexeva [Paroxetine] Quetiapine Other: See Comments Seroquel [Quetiapin* Rash Sulfamethoxazole Other: See Comments Tomato GI Upset Tomato sauce Trimethoprim Other: See Comments Venlafaxine Other: See Comments Venom-Honey Bee Other: See Comments Vistaril [Hydroxyzi* Wellbutrin [Bupropi* Rash Ineffective and broke out in rash Review of Systems Constitutional: Negative for chills and fever. HENT: Negative for congestion and sore throat. Eyes: Negative for pain and visual disturbance. Respiratory: Negative for cough and shortness of breath. Cardiovascular: Negative for chest pain and palpitations. Gastrointestinal: Negative for abdominal pain, blood in stool, constipation, diarrhea, nausea and vomiting. Endocrine: Negative for polydipsia and polyuria. Genitourinary: Negative for dysuria and hematuria. Musculoskeletal: Negative for arthralgias and myalgias. Skin: Negative for rash. Neurological: Negative for dizziness, light-headedness and numbness. Psychiatric/Behavioral: Positive for dysphoric mood and sleep disturbance. The patient is nervous/anxious. Objective PHYSICAL EXAMINATION: VIDEO EXAM: (if done, performed via video enabled technology) GENERAL: alert and appropriate, in no distress and well-hydrated, well nourished. No conversational dyspnea. SKIN: no rash noted HEAD: normocephalic, no abnormality or lesion noted EYES: no injection and visual acuity is grossly normal EARS: hearing grossly normal NOSE: external nose normal without rhinorrhea OROPHARYNX: moist mucus membranes NECK: Supple RESPIRATORY: breathing non-labored CHEST: equal chest rise with normal respiratory effort Assessment and Plan Encounter Diagnosis ICD-10-CM 1. PTSD (post-traumatic stress disorder) F43.10 sertraline (ZOLOFT) 50 mg tablet clonazePAM (KLONOPIN) 0.5 mg tablet 2. Depression, unspecified depression type F32.A sertraline (ZOLOFT) 50 mg tablet clonazePAM (KLONOPIN) 0.5 mg tablet 3. Anxiety F41.9 TOXICOLOGY SCREEN, ROUTINE URINE sertraline (ZOLOFT) 50 mg tablet clonazePAM (KLONOPIN) 0.5 mg tablet 4. OAB (overactive bladder) N32.81 MYRBETRIQ 25 mg Tb24 #PTSD, Depression, Anxiety, insomnia Worsening Pt reports only taking 50 mg of sertraline rather than 100 mg daily for months to years now SDM to increase sertraline to 75 mg daily Continue clonazepam 0.5 mg BID for anxiety as written and mirtazapine 15 mg daily Advised to obtain UDS Follow up in 4 weeks or sooner PRN PDMP website checked and validated. All prescriptions have been APPROPRIATELY filled. No suspicious activity was identified. 09/14/2024 by Everardo Ray PA-C #OAB Stable Continue mirabegron 25 mg daily This note was partially generated using [employer] voice recognition system. Medical Decision Making: Problems: Low: Stable chronic illness Moderate: 1+ chronic illnesses with change Data: Unique source(s) for external note(s) reviewed: 1 Unique test(s) ordered: 1 Risk: Moderate: Drug management Medical Decision Making Level: 4 - Moderate Electronically Signed by: Everardo Ray PA-C He/Him September 14, 2024 1:59 PM documented in this encounter [facility] 09-14-2024 Telephone encounter Note Last visit 03/30/24 Patient has an appt today with Everardo Ray. . These refills can be addressed at todays visit as there are controlled requests. [facility] 09-14-2024 Miscellaneous Notes Last visit 03/30/24 Patient has an appt today with Everardo Rya. . These refills can be addressed at todays visit as there are controlled requests. documented in this encounter [facility] 08-06-2024 Telephone encounter Note my chart encounter has been read. closing encounter until call is returned by patient Roma Mendez RN [facility] 08-06-2024 Miscellaneous Notes my chart encounter has been read. closing encounter until call is returned by patient Roma Mendez RN Sent MCM asking for a return call to the office Roma Mendez RN Left message for patient to call back. Roma Mendez RN Left message for patient to call back. Please transfer to triage when call is returned thank you Roma Mendez RN Please triage. I literally can't eat anything or im getting pain in my stomach then non stop diarrhea, sulfur burps with acid coming out my nose and mouth . I'm at my wits end . I was chalking it up to my IBS but even baked fish witch is one of the foods that's supposed to be safe I can't eat im constantly nauseous upset stomach. I'm in tears now documented in this encounter [facility] 08-05-2024 Telephone encounter Note Sent MCM asking for a return call to the office Roma Mendez RN [facility] 08-04-2024 Telephone encounter Note Left message for patient to call back. Roma Mendez RN [facility] 08-03-2024 Telephone encounter Note Left message for patient to call back. Please transfer to triage when call is returned thank you Roma Mendez RN [facility] 08-03-2024 Telephone encounter Note Please triage. I literally can't eat anything or im getting pain in my stomach then non stop diarrhea, sulfur burps with acid coming out my nose and mouth . I'm at my wits end . I was chalking it up to my IBS but even baked fish witch is one of the foods that's supposed to be safe I can't eat im constantly nauseous upset stomach. I'm in tears now [facility] 04-28-2024 Telephone encounter Note Pt had previously reports medication SE. If this is no longer present, I will update the allergy/SE list and remove Myrbetriq. [facility] 04-28-2024 Miscellaneous Notes Pt had previously reports medication SE. If this is no longer present, I will update the allergy/SE list and remove Myrbetriq. Patient calling, stating they will re-check with [facility] regarding gabapentin. Patient states adamantly that they are not allergic to Myrbetriq and needs a refill sent to [facility]. Please advise Sent MCM to patient. documented in this encounter [facility] 04-28-2024 Telephone encounter Note Patient calling, stating they will re-check with [facility] regarding gabapentin. Patient states adamantly that they are not allergic to Myrbetriq and needs a refill sent to [facility]. Please advise [facility] 04-28-2024 Telephone encounter Note Sent MCM to patient. [facility] 03-31-2024 Telephone encounter Note Multiple mychart message have been sent from patient regarding letters 03/30/24. Please see other encounters. Thank you. [facility] 03-31-2024 Miscellaneous Notes Multiple [employer] message have been sent from patient regarding letters 03/30/24. Please see other encounters. Thank you. documented in this encounter [facility] 03-30-2024 History of Presen t illness Narrative [facility] VISIT This Team Access Model visit is a virtual encounter. It required patient-provider interaction for the medical decision making as documented below. I have communicated my name and active licensure. The patient's identity and physical location were verified at the time of this visit. Either the patient or their legal textiles sales representative has been informed of the risks and benefits of -- and alternatives to -- treatment through a remote evaluation and consents to proceed with the evaluation remotely. Cliff Barth is a 53 year old adult seen to discuss gender affirming surgery. HISTORY REVIEWED (electronic chart updated): - medical history - medications - allergies Last VV: 12/30/2023 with me PMH of gender incongruence, anxiety, arthritis, DDD, scoliosis, MDD, migraine, fibromyalgia, PNES, h/o CVA, Vit D deficiency, h/o EtOH abuse in remission, tobacco abuse, abnl mammogram with benign Bx, h/o cervical cancer s/p hysterectomy (with 1 remaining ovary) . MHP: None No psychiatrist. He endorses that he genital dysphoria > chest/breast dysphoria. He is interested in phalloplasty (SUGAR or LAT).. Was seen in [facility] for sinusitis 03/10/2024. They are currently living with a friend and reports housing stability. Applying [facility] housing currently. He stopped smoking and vaping since our last visit! REVIEW OF SYSTEMS: All other ROS: negative As noted in HPI PHYSICAL EXAMINATION: VIDEO EXAM: (if done, performed via video enabled technology) GENERAL: alert and appropriate, in no distress and well-hydrated, well nourished SKIN: no rash noted HEAD: normocephalic, no abnormality or lesion noted EYES: no injection and visual acuity is grossly normal EARS: hearing grossly normal NOSE: external nose normal without rhinorrhea OROPHARYNX: moist mucus membranes NECK: Supple RESPIRATORY: breathing non-labored CHEST: equal chest rise with normal respiratory effort Latest Ref Rng 03/12/2024 WBC 3.70 - 11.00 k/uL 6.03 RBC 4.20 - 6.00 m/uL 5.25 Hemoglobin 13.0 - 17.0 g/dL 14.4 Hematocrit 39.0 - 51.0 % 44.8 MCV 80.0 - 100.0 fL 85.3 MCH 26.0 - 34.0 pg 27.4 MCHC 30.5 - 36.0 g/dL 32.1 RDW-CV 11.5 - 15.0 % 13.3 Platelet Count 150 - 400 k/uL 227 MPV 9.0 - 12.7 fL 11.0 Neut% % 56.2 Abs Neut (ANC) 1.45 - 7.50 k/uL 3.39 Lymph% % 34.5 Abs Lymph 1.00 - 4.00 k/uL 2.08 [place]% % 6.1 Abs [place] <0.87 k/uL 0.37 Eosin% % 2.2 Abs Eosin <0.46 k/uL 0.13 Baso% % 0.7 Abs Baso <0.11 k/uL 0.04 Immature Gran % % 0.3 IMMATURE GRANS (ABS) <0.10 k/uL <0.03 NRBC /100 WBC 0.0 Absolute nRBC <0.01 k/uL <0.01 DTYPE Auto Cholesterol, Total <200 mg/dL 110 Triglyceride <150 mg/dL 116 HDL Cholesterol >39 mg/dL 36 (L) Non HDL Cholesterol <130 mg/dL 74 Fasting Time hrs 12 VLDL Cholesterol <30 mg/dL 23 TC:HDL Ratio <5.10 3.06 LDL Cholesterol <100 mg/dL 51 LDL:HDL Ratio <2.54 1.42 Estradiol 17B pg/mL <25 Testosterone ng/dL 28 Legend: (L) Low ASSESSMENT: Encounter Diagnosis ICD-10-CM 1. 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 We reviewed [employer] for Transgender Health (WPATH) surgical criteria for gender affirmation care including: Being on Gender Affirmation Hormonal Treatment (GAHT) for 6 months (as clinically appropriate) AND -1 Letter of Recommendation (MIHAELA) from a mental health professional (MHP) familiar with the care of gender dysphoria for top surgery (PhD or Psy D level preferred) -2 MIHAELA from MHPs for bottom surgery. I encouraged pt to check with their insurance company on any specific WPATH requirements other than these. We discussed potential surgical referrals at the [facility]. Medical Decision Making: Data: Unique test result(s) reviewed: 3+ Risk: Moderate: Drug management High: High risk from testing/treatment Medical Decision Making Level: 4 - Moderate CC: Dr. Mary Lira MD, MPH Director - [facility] House Inspector - Transgender Surgery and Medicine Program [facility] Internal Medicine and Geriatrics He/Him/They/Them documented in this encounter [facility] 03-30-2024 Note HNO ID: [id number] Author: SILVIO LIRA MD Service: ? Author Type: Physician Type: Progress Notes Filed: 03/30/2024 17:24 Note Text: [facility] VISIT This Team Access Model visit is a virtual encounter. It required patient-provider interaction for the medical decision making as documented below. I have communicated my name and active licensure. The patient's identity and physical location were verified at the time of this visit. Either the patient or their legal textiles sales representative has been informed of the risks and benefits of -- and alternatives to -- treatment through a remote evaluation and consents to proceed with the evaluation remotely. Cliff Barth is a 53 year old adult seen to discuss gender affirming surgery. HISTORY REVIEWED (electronic chart updated): - medical history - medications - allergies Last VV: 12/30/2023 with in PMH of gender incongruence, anxiety, arthritis, DDD, scoliosis, MDD, migraine, fibromyalgia, PNES, h/o CVA, Vit D deficiency, h/o EtOH abuse in remission, tobacco abuse, abnl mammogram with benign Bx, h/o cervical cancer s/p hysterectomy (with 1 remaining ovary) . MHP: None No psychiatrist. He endorses that he genital dysphoria > chest/breast dysphoria. He is interested in phalloplasty (SUGAR or LAT).. Was seen in [facility] care for sinusitis 03/10/2024. They are currently living with a friend and reports housing stability. Applying [facility] housing currently. He stopped smoking and vaping since our last visit! REVIEW OF SYSTEMS: All other ROS: negative As noted in HPI PHYSICAL EXAMINATION: VIDEO EXAM: (if done, performed via video enabled technology) GENERAL: alert and appropriate, in no distress and well-hydrated, well nourished SKIN: no rash noted HEAD: normocephalic, no abnormality or lesion noted EYES: no injection and visual acuity is grossly normal EARS: hearing grossly normal NOSE: external nose normal without rhinorrhea OROPHARYNX: moist mucus membranes NECK: Supple RESPIRATORY: breathing non-labored CHEST: equal chest rise with normal respiratory effort Latest Ref Rng 03/12/2024 WBC 3.70 - 11.00 k/uL 6.03 RBC 4.20 - 6.00 m/uL 5.25 Hemoglobin 13.0 - 17.0 g/dL 14.4 Hematocrit 39.0 - 51.0 % 44.8 MCV 80.0 - 100.0 fL 85.3 MCH 26.0 - 34.0 pg 27.4 MCHC 30.5 - 36.0 g/dL 32.1 RDW-CV 11.5 - 15.0 % 13.3 Platelet Count 150 - 400 k/uL 227 MPV 9.0 - 12.7 fL 11.0 Neut% % 56.2 Abs Neut (ANC) 1.45 - 7.50 k/uL 3.39 Lymph% % 34.5 Abs Lymph 1.00 - 4.00 k/uL 2.08 [place]% % 6.1 Abs [place] <0.87 k/uL 0.37 Eosin% % 2.2 Abs Eosin <0.46 k/uL 0.13 Baso% % 0.7 Abs Baso <0.11 k/uL 0.04 Immature Gran % % 0.3 IMMATURE GRANS (ABS) <0.10 k/uL <0.03 NRBC /100 WBC 0.0 Absolute nRBC <0.01 k/uL <0.01 DTYPE Auto Cholesterol, Total <200 mg/dL 110 Triglyceride <150 mg/dL 116 HDL Cholesterol >39 mg/dL 36 (L) Non HDL Cholesterol <130 mg/dL 74 Fasting Time hrs 12 VLDL Cholesterol <30 mg/dL 23 TC:HDL Ratio <5.10 3.06 LDL Cholesterol <100 mg/dL 51 LDL:HDL Ratio <2.54 1.42 Estradiol 17B pg/mL <25 Testosterone ng/dL 28 Legend: (L) Low ASSESSMENT: Encounter Diagnosis ICD-10-CM 1. 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 We reviewed [employer] for Transgender Health (WPATH) surgical criteria for gender affirmation care including: Being on Gender Affirmation Hormonal Treatment (GAHT) for 6 months (as clinically appropriate) AND -1 Letter of Recommendation (MIHAELA) from a mental health professional (MHP) familiar with the care of gender dysphoria for top surgery (PhD or Psy D level preferred) -2 MIHAELA from MHPs for bottom surgery. I encouraged pt to check with their insurance company on any specific WPATH requirements other than these. We discussed potential surgical referrals at the [facility]. Medical Decision Making: Data: Unique test result(s) reviewed: 3+ Risk: Moderate: Drug management High: High risk from testing/treatment Medical Decision Making Level: 4 - Moderate CC: Dr. Mary Lira MD, MPH Director - [facility] LGBT[facility] Rooming House Inspector - Transgender Surgery and Medicine Program [facility] Internal Medicine and Geriatrics He/Him/They/Them [facility] 03-10-2024 Note HNO ID: [id number] Author: PATI SAAVEDRA PA Service: ? Author Type: Physician Drywall Metal Stud Worker Type: Progress Notes Filed: 03/10/2024 17:47 Note Text: This note was created using NoteWriter. Subjective Cliff Barth is a 53 year old adult. HPI 53-year-old adult presents for sinus pressure, sinus congestion, sinus pain, loss of voice, postnasal drip x 2 weeks. Patient reports has had sinus congestion for the past 2 weeks. Lots of mucus, sinus pressure, sinus pain, headache. Has lost voice. Has had a cough as well. Has history of chronic bronchitis, but states this does not feel similar, feels more like it is in the face. No vomiting or diarrhea. Had fevers last week of around 100 ?F. Has tried DayQuil, NyQuil, TheraFlu, Mucinex without much improvement in symptoms. PAST MEDICAL HISTORY Diagnosis Date Anxiety ANXIETY STATE NOS 02/18/2007 Pseudoseizures. Anxiety state, unspecified 02/18/2007 Arthritis Arthritis Congenital musculoskeletal deformity of spine DDD (degenerative disc disease) 04/13/2009 Degenerative disc disease Depression DEPRESSIVE DISORDER NEC 02/18/2007 Counselling Center: Schizoaffective, borderline personality, dissociative, PTSD. Dysplasia of cervix, low grade (JON 1) 2009 History of psychogenic nonepileptic seizure IDIOPATHIC SCOLIOSIS 2002 Migraine 04/13/2009 Migraine headaches MYALGIA AND MYOSITIS NOS 2002 Fibromyalgia, Lumbago. 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 Video EEG PTSD (post-traumatic stress disorder) Scoliosis Stroke (HCC) mild per pt Vitamin D deficiency 04/14/2009 PAST SURGICAL HISTORY Procedure Laterality Date BX OF BREAST; INCISIONAL DELIVERY ONLY , low cervical DELIVERY ONLY , low cervical DILATION AND CURETTAGE DXAND/THER NONOBSTETRIC Dilation AND curettage HYSTERECTOMY 2010 abnormal paps LIG/TRNSXJ FLP TUBE ABDL/VAG APPR UNI/BI Tubal ligation PAST SURGICAL HISTORY OF skin graft to ankle ALLERGIES Atorvastatin, Clopidogrel, Dilaudid [Hydromorphone Hcl], Myrbetriq [Mirabegron], Nitrofurantoin, Bactrim [Sulfamethoxazole-Trimethoprim] , Bees, Carbamazepine, Carbatrol [Carbamazepine], Cyclobenzaprine, Demerol [Meperidine (Pf)], Dilaudid [Hydromorphone], Effexor [Venlafaxine Hcl], Escitalopram, Famotidine, Flexeril [Cyclobenzaprine Hcl], Hydroxyzine, Influenza Virus Vaccines, Lactose, Lactose, Lexapro [Escitalopram Oxalate], Meperidine, Naprosyn[Naproxen], Naproxen, Norflex [Orphenadrine], Orphenadrine, Paroxetine, Pexeva [Paroxetine], Quetiapine, Seroquel [Quetiapine Fumarate], Sulfamethoxazole, Tomato, Trimethoprim, Venlafaxine, Venom-Honey Bee, Vistaril [Hydroxyzine Hcl], and Wellbutrin [Bupropion] MEDICATIONS clonazePAM (KLONOPIN) 0.5 mg tablet Take 1 tablet by mouth two times a day for 60 days. varenicline (CHANTIX) 1 mg tablet Take 1 tablet by mouth two times a day. gabapentin (NEURONTIN) 100 mg capsule Take 1 capsule by mouth two times a day for 180 days. testosterone (ANDROGEL) 50 mg / 5 g (1%) Apply 2 Packets as directed once daily for 90 days. mirtazapine (REMERON) 15 mg tablet Take 1 tablet by mouth daily at bedtime. sertraline (ZOLOFT) 50 mg tablet Take 1 tablet by mouth two times a day. albuterol (PROVENTIL) 2.5 mg /3 mL (0.083 %) nebulizer solution Use 3 mL via nebulizer every 4 hours as needed for wheezing/shortness of breath. Use over 5-15minutes. albuterol HFA (PROAIR HFA) 90 mcg/actuation inhaler Inhale 2 Puffs as instructed every 4 hours as needed. albuterol HFA (PROVENTIL HFA, VENTOLIN HFA) 90 mcg/actuation inhaler Inhale 2 Puffs as instructed every 4 hours as needed for wheezing/shortness of breath. multivitamin tablet Take 1 tablet by mouth once daily. Nebulizer NEBULIZER FOR HOME USE. Asthma amoxicillin-clavulanate potassium (AUGMENTIN) 875-125 mg per tablet Take 1 tablet by mouth two times a day for 7 days. varenicline (CHANTIX) 1 mg tablet Take 0.5 tablets by mouth once daily for 3 days, THEN 0.5 tablets two times a day for 4 days, THEN 1 tablet two times a day for 23 days. SUMAtriptan (IMITREX) 50 mg tablet Take 1 at onset of migraine. If no improvement in 2 hours repeat dose. Do not take more than 2 in a 24hr period. (Patient not taking: Reported on 03/10/2024) rosuvastatin (CRESTOR) 20 mg tablet Take 1 tablet by mouth daily at bedtime. therapeutic multivitamin-minerals (THERA-M PLUS) 9 mg iron-400 mcg tablet Take 1 tablet by mouth once daily. (Patient not taking: Reported on 03/10/2024) sertraline (ZOLOFT) 50 mg tablet Take 50 mg by mouth two times a day. (Patient not taking: Reported on 03/10/2024) SUMAtriptan (IMITREX) 50 mg tablet Take 50 mg by mouth as needed for migraine headache (see administration instructions). May repeat dose after 2 hours if needed. Maximum daily dose is 200 mg per day. (Patient not taking: Reported on 03/10/2024) mirtazapine (REMERON) 15 mg tablet Take (more content not included)... [facility] 03-10-2024 History of Presen t illness Narrative This note was created using [employer]. Subjective Cliff Barth is a 53 year old adult. HPI 53-year-old adult presents for sinus pressure, sinus congestion, sinus pain, loss of voice, postnasal drip x 2 weeks. Patient reports has had sinus congestion for the past 2 weeks. Lots of mucus, sinus pressure, sinus pain, headache. Has lost voice. Has had a cough as well. Has history of chronic bronchitis, but states this does not feel similar, feels more like it is in the face. No vomiting or diarrhea. Had fevers last week of around 100 F. Has tried DayQuil, NyQuil, TheraFlu, Mucinex without much improvement in symptoms. PAST MEDICAL HISTORY Diagnosis Date Anxiety ANXIETY STATE NOS 02/18/2007 Pseudoseizures. Anxiety state, unspecified 02/18/2007 Arthritis Arthritis Congenital musculoskeletal deformity of spine DDD (degenerative disc disease) 04/13/2009 Degenerative disc disease Depression DEPRESSIVE DISORDER NEC 02/18/2007 Counselling Center: Schizoaffective, borderline personality, dissociative, PTSD. Dysplasia of cervix, low grade (JON 1) 2009 History of psychogenic nonepileptic seizure IDIOPATHIC SCOLIOSIS 2002 Migraine 04/13/2009 Migraine headaches MYALGIA AND MYOSITIS NOS 2002 Fibromyalgia, Lumbago. 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 Video EEG PTSD (post-traumatic stress disorder) Scoliosis Stroke (HCC) mild per pt Vitamin D deficiency 04/14/2009 PAST SURGICAL HISTORY Procedure Laterality Date BX OF BREAST; INCISIONAL DELIVERY ONLY , low cervical DELIVERY ONLY , low cervical DILATION & CURETTAGE DX&/THER NONOBSTETRIC Dilation & curettage HYSTERECTOMY HX 2010 abnormal paps LIG/TRNSXJ FLP TUBE ABDL/VAG APPR UNI/BI Tubal ligation PAST SURGICAL HISTORY OF skin graft to ankle ALLERGIES Atorvastatin, Clopidogrel, Dilaudid [Hydromorphone Hcl], Myrbetriq [Mirabegron], Nitrofurantoin, Bactrim [Sulfamethoxazole-Trimethoprim] , Bees, Carbamazepine, Carbatrol [Carbamazepine], Cyclobenzaprine, Demerol [Meperidine (Pf)], Dilaudid [Hydromorphone], Effexor [Venlafaxine Hcl], Escitalopram, Famotidine, Flexeril [Cyclobenzaprine Hcl], Hydroxyzine, Influenza Virus Vaccines, Lactose, Lactose, Lexapro [Escitalopram Oxalate], Meperidine, Naprosyn [Naproxen], Naproxen, Norflex [Orphenadrine], Orphenadrine, Paroxetine, Pexeva [Paroxetine], Quetiapine, Seroquel [Quetiapine Fumarate], Sulfamethoxazole, Tomato, Trimethoprim, Venlafaxine, Venom-Honey Bee, Vistaril [Hydroxyzine Hcl], and Wellbutrin [Bupropion] MEDICATIONS clonazePAM (KLONOPIN) 0.5 mg tablet Take 1 tablet by mouth two times a day for 60 days. varenicline (CHANTIX) 1 mg tablet Take 1 tablet by mouth two times a day. gabapentin (NEURONTIN) 100 mg capsule Take 1 capsule by mouth two times a day for 180 days. testosterone (ANDROGEL) 50 mg / 5 g (1%) Apply 2 Packets as directed once daily for 90 days. mirtazapine (REMERON) 15 mg tablet Take 1 tablet by mouth daily at bedtime. sertraline (ZOLOFT) 50 mg tablet Take 1 tablet by mouth two times a day. albuterol (PROVENTIL) 2.5 mg /3 mL (0.083 %) nebulizer solution Use 3 mL via nebulizer every 4 hours as needed for wheezing/shortness of breath. Use over 5-15minutes. albuterol HFA (PROAIR HFA) 90 mcg/actuation inhaler Inhale 2 Puffs as instructed every 4 hours as needed. albuterol HFA (PROVENTIL HFA, VENTOLIN HFA) 90 mcg/actuation inhaler Inhale 2 Puffs as instructed every 4 hours as needed for wheezing/shortness of breath. multivitamin tablet Take 1 tablet by mouth once daily. Nebulizer NEBULIZER FOR HOME USE. Asthma amoxicillin-clavulanate potassium (AUGMENTIN) 875-125 mg per tablet Take 1 tablet by mouth two times a day for 7 days. varenicline (CHANTIX) 1 mg tablet Take 0.5 tablets by mouth once daily for 3 days, THEN 0.5 tablets two times a day for 4 days, THEN 1 tablet two times a day for 23 days. SUMAtriptan (IMITREX) 50 mg tablet Take 1 at onset of migraine. If no improvement in 2 hours repeat dose. Do not take more than 2 in a 24hr period. (Patient not taking: Reported on 03/10/2024) rosuvastatin (CRESTOR) 20 mg tablet Take 1 tablet by mouth daily at bedtime. therapeutic multivitamin-minerals (THERA-M PLUS) 9 mg iron-400 mcg tablet Take 1 tablet by mouth once daily. (Patient not taking: Reported on 03/10/2024) sertraline (ZOLOFT) 50 mg tablet Take 50 mg by mouth two times a day. (Patient not taking: Reported on 03/10/2024) SUMAtriptan (IMITREX) 50 mg tablet Take 50 mg by mouth as needed for migraine headache (see administration instructions). May repeat dose after 2 hours if needed. Maximum daily dose is 200 mg per day. (Patient not taking: Reported on 03/10/2024) mirtazapine (REMERON) 15 mg tablet Take 15 mg by mouth daily at bedtime. (Patient not taking: Reported on 03/10/2024) aspirin, enteric coated (ASPIRIN, ENTERIC COATED) 81 mg EC tablet Take 81 mg by mouth once daily. (Patient not taking: Reported on 03/10/2024) amitriptyline (ELAVIL) 25 mg tablet Take 25 mg by mouth daily at bedtime. (Patient not taking: Reported on 03/10/2024) ibuprofen (MOTRIN) 600 mg tablet Take 600 mg by mouth every 6 hours as needed. (Patient not taking: Reported on 03/10/2024) aspirin, enteric coated (ASPIRIN, ENTERIC COATED) 81 mg EC tablet Take 81 mg by mouth once daily. (Patient not taking: Reported on 03/10/2024) FAMILY HISTORY Adopted: Yes Problem Relation Age of Onset Cancer Mother of pancreatic cancer Diabetes Sister Heart Brother Possibably has cancer as well Social History Tobacco Use Smoking status: Some Days Current packs/day: 1.00 Average packs/day: 1 pack/day for 20.0 years (20.0 ttl pk-yrs) Types: Cigarettes Smokeless tobacco: Never Substance Use Topics Alcohol use: No Comment: Patient is a recovering alcoholic. She is sober as of 03/2007 Drug use: No Review of Systems Constitutional: Positive for fever. Negative for chills. HENT: Positive for congestion, ear pain, sinus pressure and sinus pain. Negative for sore throat. Respiratory: Positive for cough. Negative for shortness of breath. Cardiovascular: Negative for chest pain. Gastrointestinal: Negative for diarrhea and vomiting. Neurological: Positive for headaches. Objective BP 112/76 Pulse 99 Temp 36.4 C (97.6 F) Resp 20 Wt 88 kg (194 lb 0.1 oz) LMP 01/26/2010 SpO2 98% BMI 31.31 kg/m Physical Exam Vitals and nursing note reviewed. Constitutional: General: Cliff Barth is not in acute distress. Appearance: Normal appearance. Cliff Barth is not toxic-appearing. HENT: Right Ear: Tympanic membrane and ear canal normal. Left Ear: Tympanic membrane and ear canal normal. Nose: Mucosal edema and congestion present. Right Sinus: Maxillary sinus tenderness and frontal sinus tenderness present. Left Sinus: Maxillary sinus tenderness and frontal sinus tenderness present. Mouth/Throat: Mouth: Mucous membranes are moist. Eyes: Conjunctiva/sclera: Conjunctivae normal. Cardiovascular: Rate and Rhythm: Normal rate and regular rhythm. Pulmonary: Effort: Pulmonary effort is normal. Breath sounds: Normal breath sounds. Skin: General: Skin is warm and dry. Neurological: Mental Status: Cliff Barth is alert. Assessment and Plan ASSESSMENT/PLAN: 1. Bacterial sinusitis - ICD9: 473.9, 041.9, ICD10: J32.9, B96.89 - Will begin treatment with Augmentin 875 mg PO BID for 7 days -Flonase nasal spray - Supportive care with plenty of fluids, rest, and analgesia prn. Diagnosis and treatment plan were discussed and questions were answered to the patient's satisfaction. Pt acknowledged understanding of concepts and follow up plan. Specific signs and symptoms that would indicate the need for higher level of care were discussed in detail warranting prompt ER evaluation. JOSE Mendoza documented in this encounter [facility] 03-09-2024 Telephone encounter Note Called Pt. No answer; left voicemail. If Pt calls back- please route to triage. Alyson Platt RN March 09, 2024 9:52 AM [facility] 03-09-2024 Miscellaneous Notes Called Pt. No answer; left voicemail. If Pt calls back- please route to triage. Alyson Platt RN March 09, 2024 9:52 AM Images from the original note were not included. Called pt, no answer, left VM. When calls back, please transfer to nurse triage. Needs VV with Dr Lira to discuss [facility]supporting Silvio Lira MD)8 hours ago (12:30 AM) AW Think i may have a upper infection I have painful pressure in my face stuffed nose know voice from it dripping down my throat headache tired low energy have to sleep with head proped or I can't breathe and I've full quiet smoking cigarettes and vape now I didn't document my quiet date is it 2 or three moths I have too wait? Ashley Hernandez RN March 06, 2024 8:37 AM documented in this encounter [facility] 03-06-2024 Telephone encounter Note Images from the original note were not included. Called pt, no answer, left VM. When calls back, please transfer to nurse triage. Needs VV with Dr Lira to discuss surgery [facility] Silvio Lira MD)8 hours ago (12:30 AM) AW Think i may have a upper infection I have painful pressure in my face stuffed nose know voice from it dripping down my throat headache tired low energy have to sleep with head proped or I can't breathe and I've full quiet smoking cigarettes and vape now I didn't document my quiet date is it 2 or three moths I have too wait? Ashley Hernandez RN March 06, 2024 8:37 AM [facility] 03-04-2024 Telephone encounter Note 1st attempt Left message to call office. 03/04/2024 10:07 AM [facility] 03-04-2024 Miscellaneous Notes 1st attempt Left message to call office. 03/04/2024 10:07 AM PDMP website checked and validated. All prescriptions have been APPROPRIATELY filled. No suspicious activity was identified. 03/03/2024 by Silvio Lira MD I will fill Rx as requested. The patient is due for a medication surveillance visit for this MATHEW monitored medication. Please remind the patient to set up a medication surveillance visit. Thank you! Pharmacy electronically requests the following refill(s) Last visit 12/30/23 No future appt Requested Prescriptions Pending Prescriptions Disp Refills clonazePAM (KLONOPIN) 0.5 mg tablet 60 tablet 1 Sig: Take 1 tablet by mouth two times a day for 60 days. varenicline (CHANTIX) 1 mg tablet 60 tablet 2 Sig: Take 1 tablet by mouth two times a day. Refused Prescriptions Disp Refills gabapentin (NEURONTIN) 100 mg capsule 180 capsule 1 Sig: Take 1 capsule by mouth two times a day for 180 days. Miranda Fraga LPN Prescription Refill Information The patient has been identified by name and date of : Yes Caregiver verified no other encounters exist for this prescription request: Yes Caregiver confirmed with patient/requestor that no other refills are due, in the near future, with this provider at this time: Yes The last office visit in the department: 12/30/23 Does the patient have a future office visit with this provider/department: No Requested Prescriptions Pending Prescriptions Disp Refills clonazePAM (KLONOPIN) 0.5 mg tablet 60 tablet 0 Sig: Take 1 tablet by mouth two times a day for 30 days. gabapentin (NEURONTIN) 100 mg capsule 180 capsule 1 Sig: Take 1 capsule by mouth two times a day for 180 days. varenicline (CHANTIX) 1 mg tablet 60 tablet 1 Sig: Take 1 tablet by mouth two times a day. [facility] Thank you Yamileth VELOZ March 03, 2024 12:12 PM documented in this encounter [facility] 03-03-2024 Telephone encounter Note PDMP website checked and validated. All prescriptions have been APPROPRIATELY filled. No suspicious activity was identified. 03/03/2024 by Silvio Lira MD I will fill Rx as requested. The patient is due for a medication surveillance visit for this MATHEW monitored medication. Please remind the patient to set up a medication surveillance visit. Thank you! [facility] 03-03-2024 Telephone encounter Note Pharmacy electronically requests the following refill(s) Last visit 12/30/23 No future appt Requested Prescriptions Pending Prescriptions Disp Refills clonazePAM (KLONOPIN) 0.5 mg tablet 60 tablet 1 Sig: Take 1 tablet by mouth two times a day for 60 days. varenicline (CHANTIX) 1 mg tablet 60 tablet 2 Sig: Take 1 tablet by mouth two times a day. Refused Prescriptions Disp Refills gabapentin (NEURONTIN) 100 mg capsule 180 capsule 1 Sig: Take 1 capsule by mouth two times a day for 180 days. Miranda Fraga LPN [facility] 03-03-2024 Telephone encounter Note Prescription Refill Information The patient has been identified by name and date of : Yes Caregiver verified no other encounters exist for this prescription request: Yes Caregiver confirmed with patient/requestor that no other refills are due, in the near future, with this provider at this time: Yes The last office visit in the department: 12/30/23 Does the patient have a future office visit with this provider/department: No Requested Prescriptions Pending Prescriptions Disp Refills clonazePAM (KLONOPIN) 0.5 mg tablet 60 tablet 0 Sig: Take 1 tablet by mouth two times a day for 30 days. gabapentin (NEURONTIN) 100 mg capsule 180 capsule 1 Sig: Take 1 capsule by mouth two times a day for 180 days. varenicline (CHANTIX) 1 mg tablet 60 tablet 1 Sig: Take 1 tablet by mouth two times a day. [facility] Thank you Yamileth VELOZ March 03, 2024 12:12 PM [facility] 01-20-2024 Telephone encounter Note Form completed. Uploaded back to patient. [facility] 01-20-2024 Miscellaneous Notes Form completed. Uploaded back to patient. Printed and placed in folder for completion. Miranda Fraga LPN documented in this encounter [facility] 01-10-2024 Telephone encounter Note Printed and placed in folder for completion. Miranda Fraga LPN [facility] 12-30-2023 History of Presen t illness Narrative DISTANCE HEALTH VISIT This Team Access Model visit is a virtual encounter. It required patient-provider interaction for the medical decision making as documented below. I have communicated my name and active licensure. The patient's identity and physical location were verified at the time of this visit. Either the patient or their legal textiles sales representative has been informed of the risks and benefits of -- and alternatives to -- treatment through a remote evaluation and consents to proceed with the evaluation remotely. Cliff Barth is a 53 year old adult seen for tobacco cessation care. HISTORY REVIEWED (electronic chart updated): - medical history - medications - allergies Last OV: 10/12/2023 with me PMH of gender incongruence, anxiety,m arthritis, DDD, scoliosis, MDD, migraine, fibromyalgia, PNES, h/o CVA, Vit D deficiency, h/o EtOH abuse in remission, tobacco abuse, abnl mammogram with benign Bx . MHP: Parul Baca (therapist) No psychiatrist. Pt reports current mental health medications are sufficiently addressing Sx. GAHT labs will be due after 01/11/2024. Stopping vaping due to cost. Restarted cigarettes 5-6 cig/day. In the past, the patient has tried: Bupropion - had allergies Chantix - has not tried. Nicotine replacement = patch (dermatitis from adhesive) Has tried lozenges = not effective Never tried gum Sts that he has been taking gabapentin for neuropathy w/o troubles or SE. REVIEW OF SYSTEMS: All other ROS: negative As noted in HPI PHYSICAL EXAMINATION: VIDEO EXAM: (if done, performed via video enabled technology) GENERAL: alert and appropriate, in no distress and well-hydrated, well nourished SKIN: no rash noted HEAD: normocephalic, no abnormality or lesion noted EYES: no injection and visual acuity is grossly normal EARS: hearing grossly normal NOSE: external nose normal without rhinorrhea OROPHARYNX: moist mucus membranes NECK: Supple RESPIRATORY: breathing non-labored CHEST: equal chest rise with normal respiratory effort ASSESSMENT: Encounter Diagnosis ICD-10-CM 1. Tobacco use Z72.0 2. Neuropathy G62.9 PLAN: #tobacco use SDM to start Chantix. Reviewed medication SE and black box warning for SI. #Neuropathy Reviewed and updated medication SE. Pt w/o SE to gabapentin and has been taking this for the last several months. RF Rx as requested. FU in 2-3 months, sooner PRN. Medical Decision Making: Problems: Moderate: 2+ stable chronic illnesses Risk: Moderate: Moderate risk from testing/treatment and Drug management Medical Decision Making Level: 4 - Moderate Silvio Lira MD, MPH Director - [facility] Inspector - Transgender Surgery and Medicine Program [facility] Internal Medicine and Geriatrics He/Him/They/Them documented in this encounter [facility] 12-30-2023 Note HNO ID: [id number] Author: SILVIO LIRA MD Service: ? Author Type: Physician Type: Progress Notes Filed: 12/30/2023 16:50 Note Text: DISTANCE HEALTH VISIT This Team Access Model visit is a virtual encounter. It required patient-provider interaction for the medical decision making as documented below. I have communicated my name and active licensure. The patient's identity and physical location were verified at the time of this visit. Either the patient or their legal textiles sales representative has been informed of the risks and benefits of -- and alternatives to -- treatment through a remote evaluation and consents to proceed with the evaluation remotely. Cliff Barth is a 53 year old adult seen for tobacco cessation care. HISTORY REVIEWED (electronic chart updated): - medical history - medications - allergies Last OV: 10/12/2023 with me PMH of gender incongruence, anxiety,m arthritis, DDD, scoliosis, MDD, migraine, fibromyalgia, PNES, h/o CVA, Vit D deficiency, h/o EtOH abuse in remission, tobacco abuse, abnl mammogram with benign Bx . MHP: Parul Baca (therapist) No psychiatrist. Pt reports current mental health medications are sufficiently addressing Sx. GAHT labs will be due after 01/11/2024. Stopping vaping due to cost. Restarted cigarettes 5-6 cig/day. In the past, the patient has tried: Bupropion - had allergies Chantix - has not tried. Nicotine replacement = patch (dermatitis from adhesive) Has tried lozenges = not effective Never tried gum Sts that he has been taking gabapentin for neuropathy w/o troubles or SE. REVIEW OF SYSTEMS: All other ROS: negative As noted in HPI PHYSICAL EXAMINATION: VIDEO EXAM: (if done, performed via video enabled technology) GENERAL: alert and appropriate, in no distress and well-hydrated, well nourished SKIN: no rash noted HEAD: normocephalic, no abnormality or lesion noted EYES: no injection and visual acuity is grossly normal EARS: hearing grossly normal NOSE: external nose normal without rhinorrhea OROPHARYNX: moist mucus membranes NECK: Supple RESPIRATORY: breathing non-labored CHEST: equal chest rise with normal respiratory effort ASSESSMENT: Encounter Diagnosis ICD-10-CM 1. Tobacco use Z72.0 2. Neuropathy G62.9 PLAN: #tobacco use SDM to start Chantix. Reviewed medication SE and black box warning for SI. #Neuropathy Reviewed and updated medication SE. Pt w/o SE to gabapentin and has been taking this for the last several months. RF Rx as requested. FU in 2-3 months, sooner PRN. Medical Decision Making: Problems: Moderate: 2+ stable chronic illnesses Risk: Moderate: Moderate risk from testing/treatment and Drug management Medical Decision Making Level: 4 - Moderate Silvio Lira MD, MPH Director - [facility] Inspector - Transgender Surgery and Medicine Program [facility] Internal Medicine and Geriatrics He/Him/They/Them [facility] 10-15-2023 Telephone encounter Note Pharmacy notified of approval PA was done on 10/12/23 and was approved Pt notified Authorization number: [id number] Authorized from October 12, 2023 to October 10, 2024 Note from payer: Your PA request for [id number] was approved for 365 days. The PA# assigned is [id number] Abel Poe MA [facility] 10-15-2023 Miscellaneous Notes Pharmacy notified of approval PA was done on 10/12/23 and was approved Pt notified Authorization number: [id number] Authorized from October 12, 2023 to October 10, 2024 Note from payer: Your PA request for [id number] was approved for 365 days. The PA# assigned is [id number] Abel Poe MA Last Visit: 10/12/23 Next Visit: 12/17/23 Pt called in regarding Testosterone gel. Pt is out of it and per Pharmacy he is out of refills. Per Pt, Pharmacy stated he needs to get a Prior Auth. Called Pharmacy to verify, and Pharmacist states they need a prior auth to continue medication. Can we start a PA for Pt for Androgel? Ubaldo Greenberg documented in this encounter [facility] 10-15-2023 Telephone encounter Note Last Visit: 10/12/23 Next Visit: 12/17/23 Pt called in regarding Testosterone gel. Pt is out of it and per Pharmacy he is out of refills. Per Pt, Pharmacy stated he needs to get a Prior Auth. Called Pharmacy to verify, and Pharmacist states they need a prior auth to continue medication. Can we start a PA for Pt for Androgel? Ubaldo Greenberg [facility] 10-12-2023 History of Presen t illness Narrative ESTABLISHED PATIENT Cliff Barth is a 52 year old adult presenting for Follow Up (HRT). HISTORY OF PRESENT ILLNESS Last VV: 01/16/2023 with me Last OV: 11/21/2022 with me PMH of gender incongruence, anxiety,m arthritis, DDD, scoliosis, MDD, migraine, fibromyalgia, PNES, h/o CVA, Vit D deficiency, h/o EtOH abuse in remission, tobacco abuse, abnl mammogram with benign Bx . Has been off testosterone for 6+ months as he was having the mammogram findings addressed and establishing housing security. Currently living with friends in [facility] [place]. Currently out of testosterone. Would like to resume testosterone 100 mg topically daily. MHP: Parul Baca (therapist) No psychiatrist. Pt reports current mental health medications are sufficiently addressing Sx. Sts he is using a vape - using it up to 5 times a day, lasts 6 days. HISTORIES FAMILY HISTORY Adopted: Yes Problem Relation Age of Onset Cancer Mother of pancreatic cancer Diabetes Sister Heart Brother Possibably has cancer as well PAST MEDICAL HISTORY No date: Anxiety 02/18/2007: ANXIETY STATE NOS Comment: Pseudoseizures. 02/18/2007: Anxiety state, unspecified No date: Arthritis No date: Arthritis No date: Congenital musculoskeletal deformity of spine 04/13/2009: DDD (degenerative disc disease) No date: Degenerative disc disease No date: Depression 02/18/2007: DEPRESSIVE DISORDER NEC Comment: Counselling Center: Schizoaffective, borderline personality, dissociative, PTSD. 2010: Dysplasia of cervix, low grade (JON 1) No date: History of psychogenic nonepileptic seizure 2002: IDIOPATHIC SCOLIOSIS 04/13/2009: Migraine No date: Migraine headaches 2002: MYALGIA AND MYOSITIS NOS Comment: Fibromyalgia, Lumbago. No date: Personal history of alcoholism ([facility]) 04/01/2003: Pseudoseizure Comment: Video EEG No date: PTSD (post-traumatic stress disorder) No date: Scoliosis No date: Stroke ([facility]) Comment: mild per pt 04/14/2009: Vitamin D deficiency PAST SURGICAL HISTORY No date: BX OF BREAST; INCISIONAL No date: DELIVERY ONLY Comment: , low cervical No date: DELIVERY ONLY Comment: , low cervical No date: DILATION & CURETTAGE DX&/THER NONOBSTETRIC Comment: Dilation & curettage 2011: HYSTERECTOMY HX Comment: abnormal paps No date: LIG/TRNSXJ FLP TUBE ABDL/VAG APPR UNI/BI Comment: Tubal ligation No date: PAST SURGICAL HISTORY OF Comment: skin graft to ankle Social History Tobacco Use Smoking status: Some Days Current packs/day: 1.00 Average packs/day: 1 pack/day for 20.0 years (20.0 ttl pk-yrs) Types: Cigarettes Smokeless tobacco: Never Substance Use Topics Alcohol use: No Comment: Patient is a recovering alcoholic. She is sober as of 03/2007 Drug use: No Allergies: ALLERGIES Allergen Reactions Dilaudid [Hydromorp* Bactrim [Sulfametho* Bees Carbamazepine Other: See Comments Carbatrol [Carbamaz* Itching RASH, ITCH Cyclobenzaprine Other: See Comments Demerol [Meperidine* Dilaudid [Hydromorp* Unknown Effexor [Venlafaxin* Escitalopram Other: See Comments Flexeril [Cyclobenz* Rash Gabapentin Rash Gabapentin Other: See Comments Hydroxyzine Other: See Comments Influenza Virus Vac* Unknown Lactose Lactose Unknown Lexapro [Escitalopr* Meperidine Other: See Comments Naprosyn [Naproxen] Rash Naproxen Other: See Comments Norflex [Orphenadri* Unknown Orphenadrine Other: See Comments Paroxetine Other: See Comments Pexeva [Paroxetine] Quetiapine Other: See Comments Seroquel [Quetiapin* Rash Sulfamethoxazole Other: See Comments Tomato GI Upset Tomato sauce Trimethoprim Other: See Comments Venlafaxine Other: See Comments Venom-Honey Bee Other: See Comments Vistaril [Hydroxyzi* Wellbutrin [Bupropi* Rash Ineffective and broke out in rash Medications: testosterone (ANDROGEL) 50 mg / 5 g (1%) Apply 2 Packets as directed once daily for 90 days. clonazePAM (KLONOPIN) 0.5 mg tablet Take 1 tablet by mouth two times a day for 30 days. mirabegron (MYRBETRIQ) 50 mg Tb24 Take 1 tablet by mouth once daily. mirtazapine (REMERON) 15 mg tablet Take 1 tablet by mouth daily at bedtime. gabapentin (NEURONTIN) 100 mg capsule Take 1 capsule by mouth two times a day for 180 days. sertraline (ZOLOFT) 50 mg tablet Take 1 tablet by mouth two times a day. albuterol (PROVENTIL) 2.5 mg /3 mL (0.083 %) nebulizer solution Use 3 mL via nebulizer every 4 hours as needed for wheezing/shortness of breath. Use over 5-15minutes. albuterol HFA (PROAIR HFA) 90 mcg/actuation inhaler Inhale 2 Puffs as instructed every 4 hours as needed. atorvastatin (LIPITOR) 40 mg tablet Take 1 tablet by mouth daily at bedtime. clopidogrel (PLAVIX) 75 mg tablet Take 1 tablet by mouth once daily. famotidine (PEPCID) 20 mg tablet Take 1 tablet by mouth daily at bedtime. albuterol HFA (PROVENTIL HFA, VENTOLIN HFA) 90 mcg/actuation inhaler Inhale 2 Puffs as instructed every 4 hours as needed for wheezing/shortness of breath. mirabegron (MYRBETRIQ) 50 mg Tb24 Take 50 mg by mouth once daily. therapeutic multivitamin-minerals (THERA-M PLUS) 9 mg iron-400 mcg tablet Take 1 tablet by mouth once daily. SUMAtriptan (IMITREX) 50 mg tablet Take 50 mg by mouth as needed for migraine headache (see administration instructions). May repeat dose after 2 hours if needed. Maximum daily dose is 200 mg per day. mirtazapine (REMERON) 15 mg tablet Take 15 mg by mouth daily at bedtime. gabapentin (NEURONTIN) 100 mg capsule Take 100 mg by mouth two times a day. aspirin, enteric coated (ASPIRIN, ENTERIC COATED) 81 mg EC tablet Take 81 mg by mouth once daily. multivitamin tablet Take 1 tablet by mouth once daily. amitriptyline (ELAVIL) 25 mg tablet Take 25 mg by mouth daily at bedtime. ibuprofen (MOTRIN) 600 mg tablet Take 600 mg by mouth every 6 hours as needed. Nebulizer NEBULIZER FOR HOME USE. Asthma aspirin, enteric coated (ASPIRIN, ENTERIC COATED) 81 mg EC tablet Take 81 mg by mouth once daily. SUMAtriptan (IMITREX) 50 mg tablet Take 1 at onset of migraine. If no improvement in 2 hours repeat dose. Do not take more than 2 in a 24hr period. clonazePAM (KLONOPIN) 0.5 mg tablet Take 0.5 mg by mouth two times a day as needed for anxiety. sertraline (ZOLOFT) 50 mg tablet Take 50 mg by mouth two times a day. REVIEW OF SYSTEMS All systems were reviewed and were negative except what was noted in the HPI PHYSICAL EXAM BP 109/77 Pulse 63 Resp 16 Wt 65.5 kg (144 lb 6.4 oz) LMP 01/26/2010 BMI 23.31 kg/m General: Alert in NAD Head: NCAT Eyes: EOMI, no conjunctivitis. Oropharynx: MMM, OP clear Neck: Supple w/o goiter or LAD. Heart: RRR S1 S2 No murmurs. Lungs: Normal chest rise, air exchange. CTAB. No adventitious sounds. Extremities: Warm and well perfused. No peripheral edema. ROLLER STAKER: Non-focal. Normal gait, station. Skin: No visible rashes. Surgical pathology 10/08/2023: FINAL DIAGNOSIS A. Breast, right, 10:00, 7 cm from nipple (ribbon clip), biopsy: - Breast tissue with focus of reactive stromal changes and foamy histiocytes. - There is no evidence of malignancy. - Multiple levels examined. The ASCVD Risk score (Rico GONSALES, et al., 2019) failed to calculate for the following reasons: The patient has a prior [place] or stroke diagnosis IMP/PLAN: Encounter Diagnosis ICD-10-CM 1. Gender incongruence F64.9 testosterone (ANDROGEL) 50 mg / 5 g (1%) ESTRADIOL-17B BLD TESTOSTERONE, TOTAL COMPLETE BLOOD COUNT AND DIFFERENTIAL 2. Anxiety F41.9 clonazePAM (KLONOPIN) 0.5 mg tablet 3. Depression, unspecified depression type F32.A clonazePAM (KLONOPIN) 0.5 mg tablet 4. PTSD (post-traumatic stress disorder) F43.10 clonazePAM (KLONOPIN) 0.5 mg tablet 5. Status post hysterectomy with oophorectomy Z90.710 Z90.721 6. Housing instability, currently housed Z59.819 7. Moderate mixed hyperlipidemia not requiring statin therapy E78.2 LIPID PANEL BASIC DISCONTINUED: atorvastatin (LIPITOR) 40 mg tablet 8. 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 History of stroke Z86.73 LIPID PANEL BASIC #gender incongruence s/p hysterectomy Resume topical testosterone Labs in 3 months #anxiety, MDD, PTSD Stable Continue current medications RF clonazepam #HLD in pt w/ history of CVA No longer able to tolerate atorvastatin. SDM to trial rosuvastatin I updated the patient's med list and allergies. Though I am uncertain if the medications listed caused pt to hve a seizure vs PNES, in an abundance of caution these were removed from the med list and/or listed as allergies: -famotidine -atorvastatin -clopidogrel -mirabegron -nitrofurantoin FU in 3 months, sooner PRN. Medical Decision Making: Problems: Moderate: 2+ stable chronic illnesses Data: Unique test result(s) reviewed: 1 Unique test(s) ordered: 3+ Risk: Moderate: Drug management High: High risk from testing/treatment Medical Decision Making Level: 4 - Moderate Silivo Lira MD, MPH Director - [facility] Inspector - Transgender Surgery and Medicine Program [facility] Internal Medicine and Geriatrics He/Him/They/Them documented in this encounter [facility] 10-10-2023 Telephone encounter Note Called and spoke with pt about recent procedures and results. Encouraged pt to FU with me as scheduled. [facility] 10-10-2023 Miscellaneous Notes Called and spoke with pt about recent procedures and results. Encouraged pt to FU with me as scheduled. Patient called in today and would like to speak to navarro Meza, and would not disclose why. Patient would like provider to call today if possible Please advise Thank you, Angelina documented in this encounter [facility] 10-10-2023 Telephone encounter Note Patient called in today and would like to speak to Dr. Lira, navarro, and would not disclose why. Patient would like provider to call today if possible Please advise Thank you, Angelina [facility] 10-10-2023 Telephone encounter Note Told patient that recent right breast biopsy done on 10/08/2023 revealed no evidence of breast cancer. I have counseled patient that she can return to routine yearly breast cancer screening with her PCP. Patient acknowledges this. [facility] Work Phone: 10-10-2023 Miscellaneous Notes Told patient that recent right breast biopsy done on 10/08/2023 revealed no evidence of breast cancer. I have counseled patient that she can return to routine yearly breast cancer screening with her PCP. Patient acknowledges this. documented in this encounter [facility] 09-03-2023 Note IMPRESSION: INCOMPLE TE: NEED ADDITIONAL IMAGING EVALUATION The 1.2 cm round high density focal asymmetry in the right breast at 10 o'clock middle depth is indeterminate. An ultrasound is recommended. The 1 cm oval focal asymmetry in the left breast at 9 o'clock posterior depth is indeterminate. An ultrasound is recommended. LIMITED ULTRASOUND OF RIGHT BREAST: 09/03/2023 RESULT: Comparison is made to exam dated: 01/21/2023 mammogram - [facility]. Color flow and real-time ultrasound of the right breast were performed. Guzman scale images of the real-time examination were reviewed. There is a 1.1 cm x 1.1 cm x 1.3 cm round mass in the right breast at 10 o'clock middle depth. This round mass displays posterior acoustic shadowing. This correlates to the reported pain and with mammography findings. IMPRESSION: SUSPICIOUS The 1.1 cm x 1.1 cm x 1.3 cm round mass in the right breast is suspicious of malignancy. An ultrasound guided biopsy is recommended. LIMITED ULTRASOUND OF LEFT BREAST: 09/03/2023 RESULT: Comparison is made to exam dated: 01/21/2023 [facility]. Color flow and real-time ultrasound of the left breast were performed. Guzman scale images of the real-time examination were reviewed. There is a benign 0.8 cm x 0.6 cm x 0.9 cm oval cyst in the left breast at 9 o'clock posterior depth. This oval cyst is anechoic and septated. This correlates with mammography findings. IMPRESSION: BENIGN There is no sonographic evidence of malignancy. The 0.8 cm x 0.6 cm x 0.9 cm oval cyst in the left breast is benign. Russ rodriguez/brady:09/03/2023 11:37:51 Multiple national specialty organizations have released breast cancer screening guidelines for women at average risk for developing breast cancer - guidelines that are based on both evidence and opinion, yet differ on when to start and how often to screen for breast cancer. With representation from Breast Imaging, Internal Medicine, Women's Health, Family Medicine, and Medical/Surgical Oncology, the [facility] has carefully reviewed the data and [...] their providers when to stop screening mammograms. Health Careers Instructor(s): Miranda Dotson, [facility]; RT Allyssa(R)(M), [facility] OVERALL STUDY BIRADS: SUSPICIOUS Music Store Manager: Brady Transcribe Date/Time: Sep 03 2023 10:04A Dictated by : RUSS FAUSTIN MD This examination was interpreted and the report reviewed and electronically signed by: RUSS FAUSTIN MD on Sep 03 2023 11:37AM [facility] DIVISION OF RADIOLOGY 09-03-2023 Note IMPRESSION: INCOMPLE TE: NEED ADDITIONAL IMAGING EVALUATION The 1.2 cm round high density focal asymmetry in the right breast at 10 o'clock middle depth is indeterminate. An ultrasound is recommended. The 1 cm oval focal asymmetry in the left breast at 9 o'clock posterior depth is indeterminate. An ultrasound is recommended. LIMITED ULTRASOUND OF RIGHT BREAST: 09/03/2023 RESULT: Comparison is made to exam dated: 01/21/2023 [facility]. Color flow and real-time ultrasound of the right breast were performed. Guzman scale images of the real-time examination were reviewed. There is a 1.1 cm x 1.1 cm x 1.3 cm round mass in the right breast at 10 o'clock middle depth. This round mass displays posterior acoustic shadowing. This correlates to the reported pain and with mammography findings. IMPRESSION: SUSPICIOUS The 1.1 cm x 1.1 cm x 1.3 cm round mass in the right breast is suspicious of malignancy. An ultrasound guided biopsy is recommended. LIMITED ULTRASOUND OF LEFT BREAST: 09/03/2023 RESULT: Comparison is made to exam dated: 01/21/2023 mammogram - [facility]. Color flow and real-time ultrasound of the left breast were performed. Guzman scale images of the real-time examination were reviewed. There is a benign 0.8 cm x 0.6 cm x 0.9 cm oval cyst in the left breast at 9 o'clock posterior depth. This oval cyst is anechoic and septated. This correlates with mammography findings. IMPRESSION: BENIGN There is no sonographic evidence of malignancy. The 0.8 cm x 0.6 cm x 0.9 cm oval cyst in the left breast is benign. Russ rodriguez/brady:09/03/2023 11:37:51 Multiple national specialty organizations have released breast cancer screening guidelines for women at average risk for developing breast cancer - guidelines that are based on both evidence and opinion, yet differ on when to start and how often to screen for breast cancer. With representation from Breast Imaging, Internal Medicine, Women's Health, Family Medicine, and Medical/Surgical Oncology, the [facility] has carefully reviewed the data and [...] their providers when to stop screening mammograms. Health Careers Instructor(s): Miranda Dotson, [facility]; Dee Goldberg RT(R)(M), [facility] OVERALL STUDY BIRADS: SUSPICIOUS Music Store Manager: Brady Transcribe Date/Time: Sep 03 2023 10:04A Dictated by: RUSS FAUSTIN MD This examination was interpreted and the report reviewed and electronically signed by: RUSS FAUSTIN MD on Sep 03 2023 11:37AM [facility] DIVISION OF RADIOLOGY 09-03-2023 History of Presen t illness Narrative Radiology Service Progress Note PATIENT NAME: Cliff Barth DATE OF SERVICE: September 03, 2023 TIME: 11:24 AM PATIENT IDENTITY VERIFICATION COMPLETED USING TWO (2) IDENTIFIERS: Name and Date of confirmed by patient verbally. FALL SCREENING: Has the patient had 2 falls in the last year or 1 fall with injury or currently using an Ambulatory Assistive Device (Walker, Cane, Wheelchair, Crutches, etc.)? No PATIENT GENDER DATA: Female. status: : No status: NO. PATIENT RELEVANT IMPLANT DATA REVIEWED: Not Applicable PATIENT PRESENTS WITH AN IMPLANTABLE OR ATTACHED BLOCKER POLISHING: No RADIOLOGY DEPARTMENT: Mammography PERIPHERAL IV DATA: Not applicable SIGNED BY: Chinedu SpiveyReksoft Christa September 03, 2023 11:24 AM documented in this encounter [facility] 08-24-2023 Telephone encounter Note Patient has seen the results on [employer] today 08/24/23. Evy Cannon [facility] 08-24-2023 Miscellaneous Notes Patient has seen the results on [employer] today 08/24/23. Evy Cannon Patient was unable to get a hold of due to a voicemail mailbox is full Evy Cannon Please call patient let her know urine culture revealed mixed bacterial growth. If symptoms are improving, she may continue antibiotic. If symptoms are persistent, needs to follow-up with PCP for repeat urine/urine culture. documented in this encounter [facility] 08-23-2023 Telephone encounter Note Patient was unable to get a hold of due to a voicemail mailbox is full Evy Cannon [facility] 08-23-2023 Telephone encounter Note Please call patient let her know urine culture revealed mixed bacterial growth. If symptoms are improving, she may continue antibiotic. If symptoms are persistent, needs to follow-up with PCP for repeat urine/urine culture. [facility] 08-22-2023 Telephone encounter Note Patient was able to find ride. went to a local [facility] and was prescribed antibiotics. Roma Mendez RN [facility] 08-22-2023 Miscellaneous Notes Patient was able to find ride. went to a local [facility] and was prescribed antibiotics. Roma Mendez RN Unclear if UTI is cause of symptoms. Rec UA to assess for UTI. Order filed. Patient calling in regarding burning with urination, urinary frequency and lower back pain. Please see below for assessment.. Nurse triage assessment completed with protocol recommendation for See PCP within 24 hours . Patient advised to contact office for any changes in symptoms or seek urgent evaluation in ER if symptoms worsen. Advised patient that should be seen in local [facility] today. Patient states that has no transportation at all. asking if PCP would consider antibiotic Reason for Disposition Urinating more frequently than usual (i.e., frequency) Answer Assessment - Initial Assessment Questions 1. SYMPTOM: Burning with urination, and urinary frequency 2. ONSET: yesterday 3. PAIN: lower back pain 4. CAUSE: states had chronic UTIs when younger, and this is presenting the same way 5. OTHER SYMPTOMS: No fever or chills. Urine clear, no increased odor Protocols used: Urinary [id number] Cliff Barth is calling Silvio Lira MD today with concern regarding bladder infection Patient has been identified by name and birthdate. Duration of symptoms: 1 days Person calling: self Call patient at: at home [phone] (home) [phone] (cell) Was an appointment scheduled: No Closing statement: Patient called to say he has a bladder infection. Please call to advise. Abimael Stevens documented in this encounter [facility] 08-22-2023 Telephone encounter Note Unclear if UTI is cause of symptoms. Rec UA to assess for UTI. Order filed. [facility] 08-22-2023 History of Presen t illness Narrative This note was created using [employer]. Subjective Cliff Barth is a 52 year old adult. HPI 52-year-old adult-born female presents for dysuria, urgency, frequency x 1 week. Patient states that they started getting urinary urgency and frequency about a week ago. Patient states yesterday evening they started having some burning with urination. Patient states today the burning is worse. Denies any abdominal pain. Pt states they have some low back pain, but this is chronic. No flank pain. No blood in the urine. No fevers or vomiting. Patient has not taken anything [id number] for symptoms, just been drinking a lot of water. Patient reports history of urinary reflux as a child with recurrent UTIs. None recently. No other complaint. PAST MEDICAL HISTORY Diagnosis Date Anxiety ANXIETY STATE NOS 02/18/2007 Pseudoseizures. Anxiety state, unspecified 02/18/2007 Arthritis Arthritis Congenital musculoskeletal deformity of spine DDD (degenerative disc disease) 04/13/2009 Degenerative disc disease Depression DEPRESSIVE DISORDER NEC 02/18/2007 Counselling Center: Schizoaffective, borderline personality, dissociative, PTSD. Dysplasia of cervix, low grade (JON 1) 2009 History of psychogenic nonepileptic seizure IDIOPATHIC SCOLIOSIS 2002 Migraine 04/13/2009 Migraine headaches MYALGIA AND MYOSITIS NOS 2002 Fibromyalgia, Lumbago. 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 Video EEG PTSD (post-traumatic stress disorder) Scoliosis Stroke (HCC) mild per pt Vitamin D deficiency 04/14/2009 PAST SURGICAL HISTORY Procedure Laterality Date BX OF BREAST; INCISIONAL DELIVERY ONLY , low cervical DELIVERY ONLY , low cervical DILATION & CURETTAGE DX&/THER NONOBSTETRIC Dilation & curettage HYSTERECTOMY HX 2010 abnormal paps LIG/TRNSXJ FLP TUBE ABDL/VAG APPR UNI/BI Tubal ligation PAST SURGICAL HISTORY OF skin graft to ankle ALLERGIES Dilaudid [Hydromorphone Hcl], Bactrim [Sulfamethoxazole-Trimethoprim] , Bees, Carbamazepine, Carbatrol [Carbamazepine], Cyclobenzaprine, Demerol [Meperidine (Pf)], Dilaudid [Hydromorphone], Effexor [Venlafaxine Hcl], Escitalopram, Flexeril [Cyclobenzaprine Hcl], Gabapentin, Gabapentin, Hydroxyzine, Influenza Virus Vaccines, Lactose, Lactose, Lexapro [Escitalopram Oxalate], Meperidine, Naprosyn [Naproxen], Naproxen, Norflex [Orphenadrine], Orphenadrine, Paroxetine, Pexeva [Paroxetine], Quetiapine, Seroquel [Quetiapine Fumarate], Sulfamethoxazole, Tomato, Trimethoprim, Venlafaxine, Venom-Honey Bee, Vistaril [Hydroxyzine Hcl], and Wellbutrin [Bupropion] MEDICATIONS nitrofurantoin monohydrate and macrocrystal (MACROBID) 100 mg capsule Take 1 capsule by mouth two times a day for 7 days. testosterone (ANDROGEL) 50 mg / 5 g (1%) Apply 2 Packets as directed once daily for 90 days. SUMAtriptan (IMITREX) 50 mg tablet Take 1 at onset of migraine. If no improvement in 2 hours repeat dose. Do not take more than 2 in a 24hr period. clonazePAM (KLONOPIN) 0.5 mg tablet Take 1 tablet by mouth two times a day for 30 days. mirabegron (MYRBETRIQ) 50 mg Tb24 Take 1 tablet by mouth once daily. mirtazapine (REMERON) 15 mg tablet Take 1 tablet by mouth daily at bedtime. gabapentin (NEURONTIN) 100 mg capsule Take 1 capsule by mouth two times a day for 180 days. sertraline (ZOLOFT) 50 mg tablet Take 1 tablet by mouth two times a day. albuterol (PROVENTIL) 2.5 mg /3 mL (0.083 %) nebulizer solution Use 3 mL via nebulizer every 4 hours as needed for wheezing/shortness of breath. Use over 5-15minutes. albuterol HFA (PROAIR HFA) 90 mcg/actuation inhaler Inhale 2 Puffs as instructed every 4 hours as needed. atorvastatin (LIPITOR) 40 mg tablet Take 1 tablet by mouth daily at bedtime. clopidogrel (PLAVIX) 75 mg tablet Take 1 tablet by mouth once daily. famotidine (PEPCID) 20 mg tablet Take 1 tablet by mouth daily at bedtime. albuterol HFA (PROVENTIL HFA, VENTOLIN HFA) 90 mcg/actuation inhaler Inhale 2 Puffs as instructed every 4 hours as needed for wheezing/shortness of breath. clonazePAM (KLONOPIN) 0.5 mg tablet Take 0.5 mg by mouth two times a day as needed for anxiety. mirabegron (MYRBETRIQ) 50 mg Tb24 Take 50 mg by mouth once daily. therapeutic multivitamin-minerals (THERA-M PLUS) 9 mg iron-400 mcg tablet Take 1 tablet by mouth once daily. sertraline (ZOLOFT) 50 mg tablet Take 50 mg by mouth two times a day. SUMAtriptan (IMITREX) 50 mg tablet Take 50 mg by mouth as needed for migraine headache (see administration instructions). May repeat dose after 2 hours if needed. Maximum daily dose is 200 mg per day. mirtazapine (REMERON) 15 mg tablet Take 15 mg by mouth daily at bedtime. gabapentin (NEURONTIN) 100 mg capsule Take 100 mg by mouth two times a day. aspirin, enteric coated (ASPIRIN, ENTERIC COATED) 81 mg EC tablet Take 81 mg by mouth once daily. multivitamin tablet Take 1 tablet by mouth once daily. amitriptyline (ELAVIL) 25 mg tablet Take 25 mg by mouth daily at bedtime. ibuprofen (MOTRIN) 600 mg tablet Take 600 mg by mouth every 6 hours as needed. Nebulizer NEBULIZER FOR HOME USE. Asthma aspirin, enteric coated (ASPIRIN, ENTERIC COATED) 81 mg EC tablet Take 81 mg by mouth once daily. FAMILY HISTORY Adopted: Yes Problem Relation Age of Onset Cancer Mother of pancreatic cancer Diabetes Sister Heart Brother Possibably has cancer as well Social History Tobacco Use Smoking status: Some Days Packs/day: 1.00 Years: 20.00 Additional pack years: 0.00 Total pack years: 20.00 Types: Cigarettes Smokeless tobacco: Never Substance Use Topics Alcohol use: No Comment: Patient is a recovering alcoholic. She is sober as of 03/2007 Drug use: No Review of Systems Constitutional: Negative for chills and fever. HENT: Negative for congestion, ear pain and sore throat. Respiratory: Negative for cough and shortness of breath. Cardiovascular: Negative for chest pain. Gastrointestinal: Negative for abdominal pain, diarrhea and vomiting. Genitourinary: Positive for dysuria, frequency and urgency. Negative for hematuria, vaginal bleeding, vaginal discharge and vaginal pain. Objective BP 108/71 Pulse 87 Temp 36.3 C (97.3 F) Resp 18 Wt 83.1 kg (183 lb 3.2 oz) LMP 01/26/2010 SpO2 96% BMI 29.57 kg/m Physical Exam Vitals and nursing note reviewed. Constitutional: General: Cliff Barth is not in acute distress. Appearance: Normal appearance. Cliff Barth is not toxic-appearing. Comments: Appears uncomfortable patient states that they have burning from just urinating. Nontoxic. HENT: Nose: Nose normal. Mouth/Throat: Mouth: Mucous membranes are moist. Eyes: Conjunctiva/sclera: Conjunctivae normal. Cardiovascular: Rate and Rhythm: Normal rate and regular rhythm. Pulmonary: Effort: Pulmonary effort is normal. Breath sounds: Normal breath sounds. Abdominal: General: Abdomen is flat. Palpations: Abdomen is soft. Tenderness: There is no abdominal tenderness. There is no right CVA tenderness, left CVA tenderness, guarding or rebound. Skin: General: Skin is warm and dry. Neurological: Mental Status: Cliff Barth is alert. Assessment and Plan ASSESSMENT/PLAN: 1. Acute UTI - ICD9: 599.0, ICD10: N39.0 (primary diagnosis) acute - UA positive for carlos esterase, hematuria, and proteinuria - Send urine for culture - Begin treatment with Macrobid 100 mg BID for 7 days - Patient education for prevention given -Advised patient if any worsening pain, abdominal pain, flank pain, fevers, vomiting, needs to be seen in ER. She understands. -Patient will take Azo [id number] as well to help with symptoms. 2. Urinary frequency - ICD9: 788.41, ICD10: R35.0 - UA DIP, URINE (POC) - URINE CULTURE Diagnosis and treatment plan were discussed and questions were answered to the patient's satisfaction. Pt acknowledged understanding of concepts and follow up plan. Specific signs and symptoms that would indicate the need for higher level of care were discussed in detail warranting prompt ER evaluation. JOSE Mendoza documented in this encounter [facility] 08-22-2023 Telephone encounter Note Patient calling in regarding burning with urination, urinary frequency and lower back pain. Please see below for assessment.. Nurse triage assessment completed with protocol recommendation for See PCP within 24 hours . Patient advised to contact office for any changes in symptoms or seek urgent evaluation in ER if symptoms worsen. Advised patient that should be seen in local [facility] clinic today. Patient states that has no transportation at all. asking if PCP would consider antibiotic Reason for Disposition Urinating more frequently than usual (i.e., frequency) Answer Assessment - Initial Assessment Questions 1. SYMPTOM: Burning with urination, and urinary frequency 2. ONSET: yesterday 3. PAIN: lower back pain 4. CAUSE: states had chronic UTIs when younger, and this is presenting the same way 5. OTHER SYMPTOMS: No fever or chills. Urine clear, no increased odor Protocols used: Urinary [id number] [facility] 08-22-2023 Telephone encounter Note Cliff Barth is calling Silvio Lira MD today with concern regarding bladder infection Patient has been identified by name and birthdate. Duration of symptoms: 1 days Person calling: self Call patient at: at home [phone] (home) [phone] (cell) Was an appointment scheduled: No Closing statement: Patient called to say he has a bladder infection. Please call to advise. Abimael Stevens [facility] 08-06-2023 Telephone encounter Note Patient scheduled for 08/11. [facility] 08-06-2023 Miscellaneous Notes Patient scheduled for 08/11. Can we get pt scheduled ruth with intm? Miranda Fraga LPN 1st attempt Vm box full, unable to leave message documented in this encounter [facility] 08-05-2023 Telephone encounter Note Can we get pt scheduled ruth with intm? Miranda Fraga LPN [facility] 08-02-2023 Telephone encounter Note 1st attempt Vm box full, unable to leave message [facility] 07-29-2023 History of Presen t illness Narrative Subjective HPI HPI Cliff Barth is a 52 year old adult who presents today for CC of severe right sided h/a, light sensitivity patient hx of migrains, new s/s are flushed/fevered s/s. Hx of recent cva, unclear what kind. .Patient presents with: Headache: Migraine, light sensitive, nausea x 1 day PAST MEDICAL HISTORY Diagnosis Date Anxiety ANXIETY STATE NOS 02/18/2007 Pseudoseizures. Anxiety state, unspecified 02/18/2007 Arthritis Arthritis Congenital musculoskeletal deformity of spine DDD (degenerative disc disease) 04/13/2009 Degenerative disc disease Depression DEPRESSIVE DISORDER NEC 02/18/2007 Counselling Center: Schizoaffective, borderline personality, dissociative, PTSD. Dysplasia of cervix, low grade (JON 1) 2009 History of psychogenic nonepileptic seizure IDIOPATHIC SCOLIOSIS 2002 Migraine 04/13/2009 Migraine headaches MYALGIA AND MYOSITIS NOS 2002 Fibromyalgia, Lumbago. 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 Video EEG PTSD (post-traumatic stress disorder) Scoliosis Stroke (HCC) mild per pt Vitamin D deficiency 04/14/2009 PAST SURGICAL HISTORY Procedure Laterality Date BX OF BREAST; INCISIONAL DELIVERY ONLY , low cervical DELIVERY ONLY , low cervical DILATION & CURETTAGE DX&/THER NONOBSTETRIC Dilation & curettage HYSTERECTOMY HX 2010 abnormal paps LIG/TRNSXJ FLP TUBE ABDL/VAG APPR UNI/BI Tubal ligation PAST SURGICAL HISTORY OF skin graft to ankle ALLERGIES Dilaudid [Hydromorphone Hcl], Bactrim [Sulfamethoxazole-Trimethoprim] , Bees, Carbamazepine, Carbatrol [Carbamazepine], Cyclobenzaprine, Demerol [Meperidine (Pf)], Dilaudid [Hydromorphone], Effexor [Venlafaxine Hcl], Escitalopram, Flexeril [Cyclobenzaprine Hcl], Gabapentin, Gabapentin, Hydroxyzine, Influenza Virus Vaccines, Lactose, Lactose, Lexapro [Escitalopram Oxalate], Meperidine, Naprosyn [Naproxen], Naproxen, Norflex [Orphenadrine], Orphenadrine, Paroxetine, Pexeva [Paroxetine], Quetiapine, Seroquel [Quetiapine Fumarate], Sulfamethoxazole, Tomato, Trimethoprim, Venlafaxine, Venom-Honey Bee, Vistaril [Hydroxyzine Hcl], and Wellbutrin [Bupropion] MEDICATIONS albuterol (PROVENTIL) 2.5 mg /3 mL (0.083 %) nebulizer solution Use 3 mL via nebulizer every 4 hours as needed for wheezing/shortness of breath. Use over 5-15minutes. albuterol HFA (PROAIR HFA) 90 mcg/actuation inhaler Inhale 2 Puffs as instructed every 4 hours as needed. atorvastatin (LIPITOR) 40 mg tablet Take 1 tablet by mouth daily at bedtime. clopidogrel (PLAVIX) 75 mg tablet Take 1 tablet by mouth once daily. famotidine (PEPCID) 20 mg tablet Take 1 tablet by mouth daily at bedtime. gabapentin (NEURONTIN) 100 mg capsule Take 1 capsule by mouth two times a day for 180 days. mirabegron (MYRBETRIQ) 50 mg Tb24 Take 1 tablet by mouth once daily. mirtazapine (REMERON) 15 mg tablet Take 1 tablet by mouth daily at bedtime. albuterol HFA (PROVENTIL HFA, VENTOLIN HFA) 90 mcg/actuation inhaler Inhale 2 Puffs as instructed every 4 hours as needed for wheezing/shortness of breath. clonazePAM (KLONOPIN) 0.5 mg tablet Take 0.5 mg by mouth two times a day as needed for anxiety. mirabegron (MYRBETRIQ) 50 mg Tb24 Take 50 mg by mouth once daily. therapeutic multivitamin-minerals (THERA-M PLUS) 9 mg iron-400 mcg tablet Take 1 tablet by mouth once daily. sertraline (ZOLOFT) 50 mg tablet Take 50 mg by mouth two times a day. SUMAtriptan (IMITREX) 50 mg tablet Take 50 mg by mouth as needed for migraine headache (see administration instructions). May repeat dose after 2 hours if needed. Maximum daily dose is 200 mg per day. mirtazapine (REMERON) 15 mg tablet Take 15 mg by mouth daily at bedtime. gabapentin (NEURONTIN) 100 mg capsule Take 100 mg by mouth two times a day. aspirin, enteric coated (ASPIRIN, ENTERIC COATED) 81 mg EC tablet Take 81 mg by mouth once daily. multivitamin tablet Take 1 tablet by mouth once daily. sertraline (ZOLOFT) 50 mg tablet Take 1 tablet by mouth two times a day. SUMAtriptan (IMITREX) 50 mg tablet Take 1 at onset of migraine. If no improvement in 2 hours repeat dose. Do not take more than 2 in a 24hr period. testosterone (ANDROGEL) 50 mg / 5 g (1%) Apply 2 Packets as directed once daily for 90 days. amitriptyline (ELAVIL) 25 mg tablet Take 25 mg by mouth daily at bedtime. ibuprofen (MOTRIN) 600 mg tablet Take 600 mg by mouth every 6 hours as needed. Nebulizer NEBULIZER FOR HOME USE. Asthma aspirin, enteric coated (ASPIRIN, ENTERIC COATED) 81 mg EC tablet Take 81 mg by mouth once daily. clonazePAM (KLONOPIN) 0.5 mg tablet Take 1 tablet by mouth two times a day for 30 days. FAMILY HISTORY Adopted: Yes Problem Relation Age of Onset Cancer Mother of pancreatic cancer Diabetes Sister Heart Brother Possibably has cancer as well Social History Tobacco Use Smokeless tobacco: Never Substance Use Topics Alcohol use: No Comment: Patient is a recovering alcoholic. She is sober as of 03/2007 Drug use: No ROS Objective Blood pressure 98/68, pulse 85, temperature 36.3 C (97.4 F), resp. rate 20, weight 80.8 kg (178 lb 2.1 oz), last menstrual period 01/26/2010, SpO2 96%. Physical Exam Constitutional: General: Cliff Barth is in acute distress. Appearance: Cliff Barth is not toxic-appearing or diaphoretic. HENT: Head: Normocephalic and atraumatic. Eyes: Comments: Severe photophobia Pulmonary: Effort: Pulmonary effort is normal. No accessory muscle usage or respiratory distress. Neurological: Mental Status: Cliff Barth is alert and oriented to person, place, and time. ASSESSMENT/PLAN: 1. Severe headache - ICD9: 784.0, ICD10: R51.9 Severe s/s with some abnormal for patient symptoms. Not safe to treat at [facility] I will refer to ER. Ashvin Stone APRN.KATHY documented in this encounter [facility] 07-23-2023 Telephone encounter Note Last office visit: 11/21/22 Last virtual visit: 01/16/23 Next office visit: no future visits Mary Jane Gil LPN July 23, 2023 5:34 PM [facility] 07-23-2023 Miscellaneous Notes Last office visit: 11/21/22 Last virtual visit: 01/16/23 Next office visit: no future visits Mary Jane Gil LPN July 23, 2023 5:34 PM documented in this encounter [facility] 04-12-2023 Miscellaneous Notes 1st attempt Spoke to pt Was unable to schedule at this time PDMP website checked and validated. All prescriptions have been APPROPRIATELY filled. No suspicious activity was identified. 04/12/2023 by Silvio Lira MD I will fill Rx as requested. The patient will be due for a visit in May 2023. Please remind the patient to set up a medication surveillance visit. Thank you! 01/16/23 Next appt not scheduled Patient phones requesting refills as follows: Requested Prescriptions Pending Prescriptions Disp Refills clonazePAM (KLONOPIN) 0.5 mg tablet 60 tablet 0 Sig: Take 1 tablet by mouth two times a day for 30 days. gabapentin (NEURONTIN) 100 mg capsule 180 capsule 1 Sig: Take 1 capsule by mouth two times a day for 180 days. mirabegron (MYRBETRIQ) 50 mg Tb24 90 tablet 3 Sig: Take 1 tablet by mouth once daily. mirtazapine (REMERON) 15 mg tablet 90 tablet 3 Sig: Take 1 tablet by mouth daily at bedtime. Please review and advise. Reymundo Pastor LPN Patient has been identified by name and date of : Yes Requested Prescriptions Pending Prescriptions Disp Refills clonazePAM (KLONOPIN) 0.5 mg tablet 60 tablet 0 Sig: Take 1 tablet by mouth two times a day for 30 days. gabapentin (NEURONTIN) 100 mg capsule 180 capsule 1 Sig: Take 1 capsule by mouth two times a day for 180 days. mirabegron (MYRBETRIQ) 50 mg Tb24 90 tablet 3 Sig: Take 1 tablet by mouth once daily. mirtazapine (REMERON) 15 mg tablet 90 tablet 3 Sig: Take 1 tablet by mouth daily at bedtime. RX INSTRUCTIONS: Patient aware RX will be sent to pharmacy. No need to notify patient. [id number] Mariaelena Tamayo Pss documented in this encounter [facility] 04-02-2023 History of Past i llness Narrative Problem Noted Date Diagnosed Date Resolved Date Stroke aborted by administra tion of thrombolytic agent 04/02/2023 04/03/2023 Left hemiparesis 04/02/2023 04/03/2023 documented as of this encounter (statuses as of 05/28/2023) [facility]02-20-2024 NoteHNO ID: [id number] Author: CHELSEA RIVAS MD Service: ? Author Type: Fellow Type: Progress Notes Filed: 04/02/2023 09:03 Note Text: TELESTROKE DOCUMENTATION Name: Cliff Barth : 1970 Referring Site: [facility] Referring Provider: Dr. CASTRO Last Known Well (Date/Time): 04/02/23 0530 Neurologist Callback (Date/Time): 04/02/23 0812 Chief Complaint: left sided weakness, HPI: 52 year old female,initially presented as unknown female (estimated 40-50 years old). Upon daughter arriving, was able to clarify information --- pt is 52F (correct mrn ) hx seizure (described to be GTC w/ last one 1 month ago) and breast cancer possibly now recurrent who was doing fine with pt's daugher at around 0530 AM and then they went door dashing together. While in the car, the pt suddenly grabbed attention of the daughter noting that her jaw was clenched and she had left sided weakness. Per daughter, there was no report of any generalized shaking while in the car. Per ED, pt has flaccid L extremities. On video assessment, pt does have L gaze pref and left arm and leg are completely flaccid. Given high suspicion of pt's acute left hemiparesis due to acute ischemic stroke and within the TNK window, discussed with patient and her daughter risks and benefits of TNK and reviewed contraindications. CTH no acute process. TNK ultiamtely given at 0839. SBP was 130 and glucose was 107 prior to giving TNK. CTA H/N showed no LVO. Sx could be due to thalamocapsular stroke (can cause gaze deviation) vs post ictal todds paralysis although no seizure activity noted other than clenched jaw per daughter. MRI b wo for further clarification. BP: 136/78 NIHSS Telestroke Type - Patient location (ED or Inpatient): ED - Video Neurologist Performed Total Score: 16 Arrival Date Telestroke Site: 04/02/23 Arrival Time Telestroke Site: 803 NIHSS Performed Date: 04/02/23 NIHSS Performed Time: 824 LOC: 0 LOC Questions: 0 LOC Commands: 0 Best Gaze: 1 (L gaze) Visual: 0 (not adequately assessed) Facial Palsy: 0 Motor Left Arm: 4 Motor Right Arm: 1 Motor Left Le Motor Right Le Limb Ataxia: 0 Sensory: 0 Best Language: 3 Dysarthria: 2 Extinction and Inattention: 0 Labs Glucose: [address] Imaging reviewed, NO acute infarct/hemorrhage seen CTA Imaging reviewed, NO large vessel occlusion or severe stenosis seen Summary Suspected ACUTE ischemic stroke IV Thrombolysis Candidate Window: Last Known Well between 0-4.5 hours IV Thrombolysis Exclusion Criteria: Negative for ALL Exclusion Criteria IV Thrombolysis Additional Exclusion Criteria: Negative for ALL Additional Exclusion Criteria IV Thrombolysis Recommended: Yes, I have explained the reason(s) why I believe the patient is having an acute stroke that would benefit from IV Thrombolysis. I have explained the risks, benefits, and alternatives with the patient and/or the family members. All questions answered. Agreement to proceed with IV Thrombolysis treatment given by: Family/Significant Other, Patient IV Thrombolysis Medication Given: Tenecteplase IV Thrombolysis Bolus (Date) 04/02/23 IV Thrombolysis Bolus (Time) 0839 LKW to IV Thrombolysis (minutes) 189 DOOR to IV Thrombolysis (minutes) 35 Neuro Callback to IV Thrombolysis (minutes) 27 NIHSS performed to IV Thrombolysis (minutes) 14 Factors impacting time of IV Thrombolysis administration (Select all that apply): Care-team unable to determine eligibility List reason(s) unable to determine eligibility: no identifying information could be obtained from the pt --- had to clarify possible seizure event prior to maxi paresis -- daughter arrived later and was finally able to obtain collateral history and review contraindications w/ the pt Potential Candidate for Endovascular Therapy: No - Negative for evidence of large vessel occlusion Disposition/Billing (Physician is not in the same physical location as the patient) The patient will remain at the referring institution for further evaluation and management This case was discussed with stroke staff who was immediately available for direct supervision when needed.(List staff name): dr rodriguez Video: Minutes spent directly evaluating the patient via teleconferencing, reviewing pertinent diagnostic data, and coordinating care : 35 Video: Case complexity: Complex More than 50 percent of the encounter was spent on coordinating care of the patient during a telestroke. Thank you for contacting the [facility]. I appreciate the opportunity for allowing me to participate in Cliff Barth's care. Please feel free to contact me and/or the [facility] at any time if you have any further questions or need additional assistance. Chelsea Rivas MD April 02, 2023 8:59 [facility]02-20-2024 History of Present illness Narrative* Chelsea Rivas MD - 04/02/2023 8:59 AM EST TELESTROKE DOCUMENTATION Name: Cliff Barth : 1970 Referring Site: [facility] Referring Provider: Dr. CASTRO Last Known Well (Date/Time): 04/02/23 0530 Neurologist Callback (Date/Time): 04/02/23 0812 Chief Complaint: left sided weakness, HPI: 52 year old female,initially presented as unknown female (estimated 40-50 years old). Upon daughter arriving, was able to clarify information --- pt is 52F (correct mrn ) hx seizure(described to be GTC w/ last one 1 month ago) and breast cancer possibly now recurrent who was doing fine with pt's daugher at around 0530 AM and then they went door dashing together. While in the car, the pt suddenly grabbed attention of the daughter noting that her jaw was clenched and she had left sided weakness. Per daughter, there was no report of any generalized shaking while in the car. Per ED, pt has flaccid L extremities. On video assessment, pt does have L gaze pref and left arm and leg are completely flaccid. Given high suspicion of pt's acute left hemiparesis due to acute ischemicstroke and within the TNK window, discussed with patient and her daughter risks and benefits of TNKand reviewed contraindications. CTH no acute process. TNK ultiamtely given at 0839. SBP was 130 andglucose was 107 prior to giving TNK. CTA H/N showed no LVO. Sx could be due to thalamocapsular stroke (can cause gaze deviation) vs post ictal todds paralysis although no seizure activity noted otherthan clenched jaw per daughter. MRI b wo for further clarification. BP: 136/78 NIHSS Telestroke Type - Patient location (ED or Inpatient): ED - Video Neurologist Performed Total Score: 16 Arrival Date Telestroke Site: 04/02/23 Arrival Time Telestroke Site: 803 NIHSS Performed Date: 04/02/23 NIHSS Performed Time: 824 LOC: 0 LOC Questions: 0 LOC Commands: 0 Best Gaze: 1 (L gaze) Visual: 0 (not adequately assessed) Facial Palsy: 0 Motor Left Arm: 4 Motor Right Arm: 1 Motor Left Le Motor Right Le Limb Ataxia: 0 Sensory: 0 Best Language: 3 Dysarthria: 2 Extinction and Inattention: 0 Labs Glucose: [address] Imaging reviewed, NO acute infarct/hemorrhage seen CTA Imaging reviewed, NO large vessel occlusion or severe stenosis seen Summary Suspected ACUTE ischemic stroke IV Thrombolysis Candidate Window: Last Known Well between 0-4.5 hours IV Thrombolysis Exclusion Criteria: Negative for ALL Exclusion Criteria IV Thrombolysis Additional Exclusion Criteria: Negative for ALL Additional Exclusion Criteria IV Thrombolysis Recommended: Yes, I have explained the reason(s) why I believe the patient is having an acute stroke that would benefit from IV Thrombolysis. I have explained the risks, benefits, andalternatives with the patient and/or the family members. All questions answered. Agreement to proceed with IV Thrombolysis treatment given by: Family/Significant Other, Patient IV Thrombolysis Medication Given: Tenecteplase IV Thrombolysis Bolus (Date) 04/02/23 IV Thrombolysis Bolus (Time) 0839 LKW to IV Thrombolysis (minutes) 189 DOOR to IV Thrombolysis (minutes) 35 Neuro Callback to IV Thrombolysis (minutes) 27 NIHSS performed to IV Thrombolysis (minutes) 14 Factors impacting time of IV Thrombolysis administration (Select all that apply): Care-team unable to determine eligibility List reason(s) unable to determine eligibility: no identifying information could be obtained from the pt --- had to clarify possible seizure event prior to maxi paresis -- daughter arrived later and was finally able to obtain collateral history and review contraindications w/ the pt Potential Candidate for Endovascular Therapy: No - Negative for evidence of large vessel occlusion Disposition/Billing (Physician is not in the same physical location as the patient) The patient will remain at the referring institution for further evaluation and management This case was discussed with stroke staff who was immediately available for direct supervision whenneeded.(List staff name): dr rodriguez Video: Minutes spent directly evaluating the patient via teleconferencing, reviewing pertinent diagnostic data, and coordinating care : 35 Video: Case complexity: Complex More than 50 percent of the encounter was spent on coordinating care of the patient during a telestroke. Thank you for contacting the [facility]. I appreciate the opportunity for allowing me to participate in Cliff Barth's care. Please feel free to contact me and/or the [facility] at any time if you have any further questions or need additional assistance. Chelsea Rivas MD April 02, 2023 8:59 AM documented [facility] History of Present illness Narrative* Dee Goldberg Mammo Tech - 01/21/2023 1:30 PM EST Radiology Service Progress Note PATIENT NAME: Cliff Barth DATE OF SERVICE: January 21, 2023 TIME: 1:40 PM PATIENT IDENTITY VERIFICATION COMPLETED USING TWO (2) IDENTIFIERS: Name and Date of confirmedby patient verbally. FALL SCREENING: Has the patient had 2 falls in the last year or 1 fall with injury or currently using an Ambulatory Assistive Device (Walker, Cane, Wheelchair, Crutches, etc.)? No PATIENT GENDER DATA: Female. status: : No status: NO. PATIENT RELEVANT IMPLANT DATA REVIEWED: Not Applicable RADIOLOGY DEPARTMENT: Mammography PERIPHERAL IV DATA: Not applicable SIGNED BY: Arun Spivey January 21, 2023 1:40 PM [facility] History of Present illness Narrative* Silvio Lira MD - 01/16/2023 4:00 PM EST DISTANCE HEALTH VISIT This Team Access Model visit is a phone encounter. It required patient-provider interaction for themedical decision making as documented below. I have communicated my name and active licensure. The patient's identity and physical location wereverified at the time of this visit. Either the patient or their legal textiles sales representative has been informed of the risks and benefits of -- and alternatives to -- treatment through a remote evaluation andconsents to proceed with the evaluation remotely. Cliff Barth is a 52 year old adult seen for follow-up. HISTORY REVIEWED (electronic chart updated): - medical history - medications - allergies He sts that his housing has stabilized and he is living with his daughter in [place]. He went to see the top surgeon. He restarted smoking due to stress (related to issues going on with his daughters and worry, was facing unstable housing). He is trying to cut down his tobacco use. He had a h/o of a CVA in the past - unsure of when. Sts he was seen at the [place] ED for this. No record in EPIC with Dx of CVA, TIA. He recalls that he was laying in bed, developed L sided numbness, had central chest pressure, was unable to move and had L facial droop. Sts he was taken to the hospital by ambulance, does not recall staying in the hospital. Sts he was given nitroglycerin. Chart reviewed - 03/2012: pt with CT brain at [place] ED after syncope and pt had sustained a L sided CHI/ He had soft tissue swelling, but no Fx or acute brain injury. No mention of remote stroke. 08/2011: pt with CT brain at [place] ED after intercourse (per report). CT report reports normal findings. REVIEW OF SYSTEMS: All other ROS: negative As noted in HPI PHYSICAL EXAMINATION: VIDEO EXAM: (if done, performed via video enabled technology) No exam performed. Speaking in full sentences Breathing unlabored Speech fluent and logical Component Latest Ref Rng & Units 03/01/2022 11/21/2022 WBC 3.70 - 11.00 k/uL 5.65 RBC 4.20 - 6.00 m/uL 5.33 Hemoglobin 13.0 - 17.0 g/dL 14.8 Hematocrit 39.0 - 51.0 % 46.3 MCV 80.0 - 100.0 fL 86.9 MCH 26.0 - 34.0 pg 27.8 MCHC 30.5 - 36.0 g/dL 32.0 RDW-CV 11.5 - 15.0 % 13.9 Platelet Count 150 - 400 k/uL 214 MPV 9.0 - 12.7 fL 11.3 Neut% % 55.0 Abs Neut (ANC) 1.45 - 7.50 k/uL 3.11 Lymph% % 36.5 Abs Lymph 1.00 - 4.00 k/uL 2.06 [place]% % 6.4 Abs [place] <0.87 k/uL 0.36 Eosin% % 1.2 Abs Eosin <0.46 k/uL 0.07 Baso% % 0.7 Abs Baso <0.11 k/uL 0.04 Immature Gran % % 0.2 IMMATURE GRANS (ABS) <0.10 k/uL <0.03 NRBC /100 WBC 0.0 Absolute nRBC <0.01 k/uL <0.01 DTYPE Auto Cholesterol, Total <200 mg/dL 128 Triglyceride <150 mg/dL 87 HDL Cholesterol >39 mg/dL 44 Non HDL Cholesterol <130 mg/dL 84 Fasting Time hrs 8 VLDL Cholesterol <30 mg/dL 17 TC:HDL Ratio <5.10 2.91 LDL Cholesterol <100 mg/dL 67 LDL:HDL Ratio <2.54 1.52 Estradiol 17B pg/mL <25 Testosterone ng/dL 256 The ASCVD Risk score (Rico DK, et al., 2019) failed to calculate for the following reasons: The valid total cholesterol range is 130 to 320 mg/dL ASSESSMENT: Encounter Diagnosis ICD-10-CM 1. Gender dysphoria in adult F64.0 2. Tobacco use Z72.0 PLAN: #gender dysphoria, tobacco use Will coordinate care with Dr. Stuart. No clear documentation of previous CVA/TIA. However, he does continue smoking. Pt aware of impact tobacco use has on healing. He will continue to work toward cessation. Offered emotional support. CC: Dr. Narciso Candelario Time crack off person 19 minutes. Silvio Lira MD, MPH Director - [facility] Inspector - Transgender Surgery and Medicine Program [facility] Internal Medicine and Geriatrics He/Him/They/Them documented in [facility]12[facility] Miscellaneous Notes* Telephone Encounter - Ritika Ritchie - 01/15/2023 11:56 AM EST Patient scheduled VV for tomorrow. Thank you * Telephone Encounter - Emilia Ramos - 01/15/2023 10:26 AM EST 1st attempt Left message to call office. 01/15/2023 10:26 AM Emilia Ramos * Telephone Encounter - Miranda Fraga LPN - 01/15/2023 7:33 AM EST Please call pt to see if can get in with another available provider regarding stroke. See message below. I put pt on wait list Miranda Fraga LPN * Telephone Encounter - Miranda Fraga LPN - 01/15/2023 7:32 AM EST ----- Message from Silvio Lira MD sent at 01/14/2023 4:23 PM EST ----- Hello! I do not recall having addressed a history of stroke with this patient. I would like for him to have an appt with our team to better address this concern and offer recommendations about stroke prevention. [facility] clinical team, please contact pt to offer VV or OV to pt. TY! ----- Message ----- From: Kiara Collazo RN Sent: 01/14/2023 4:00 PM EST To: Kimberly Candelario MD; Silvio Lira MD On License Of [facility], Thank you very much for the referral of this patient for top surgery. Dr. Stuart saw him today andhe reports history of stroke years ago, on Aspirin 81mg daily. Do you think he should be on any other any medications for clot prevention? Thanks, Kiara Collazo RN documented [facility]12[facility] History of Present illness Narrative* Alondra Viveros ST - 01/14/2023 8:26 AM EST DATE OF PHOTOS: 01/14/2023 Body Part: Breasts ST Agatha January 17, 2023 8:26 AM documented in this encounterCl[facility]11[facility]23 Miscellaneous Notes* Telephone Encounter - Ritika Ritchie - 01/01/2023 3:28 PM EST Patient states they do not want it to be at [facility] in [place] and is requesting this to be switched to [facility] in [place]. Patient states they moved so they need it transferred to different pharmacy. Contact Information [phone] Thank you documented in this encounterCl[facility]11-13-2023 Miscellaneous Notes* Telephone Encounter - Emilia Leiva MA - 12/24/2022 2:18 PM EST Patient requests via MyChart refills as follows: Requested Prescriptions Pending Prescriptions Disp Refills testosterone (ANDROGEL) 50 mg / 5 g (1%) 900 g 0 Sig: Apply 2 Packets as directed once daily for 90 days.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 has cancer as well PAST MEDICAL HISTORY Diagnosis Date ANXIETY STATE NOS 02/18/2007 Pseudoseizures. Anxiety state, unspecified 02/18/2007 Arthritis Arthritis Congenital musculoskeletal deformity of spine DDD (degenerative disc disease) 04/13/2009 Degenerative disc disease DEPRESSIVE DISORDER NEC 02/18/2007 Counselling Center: Schizoaffective, borderline personality, dissociative, PTSD. Dysplasia of cervix, low grade (JON 1) 2009 IDIOPATHIC SCOLIOSIS 2002 Migraine 04/13/2009 MYALGIA AND MYOSITIS NOS 2002 Fibromyalgia, Lumbago. 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 Video EEG PTSD (post-traumatic stress disorder) Scoliosis Stroke (HCC) mild per pt Vitamin D deficiency 04/14/2009 PAST SURGICAL HISTORY Procedure Laterality Date DELIVERY ONLY , low cervical DELIVERY ONLY , low cervical DILATION & CURETTAGE DX&/THER NONOBSTETRIC Dilation & curettage HYSTERECTOMY HX 2010 abnormal paps LIG/TRNSXJ FLP TUBE ABDL/VAG APPR UNI/BI Tubal ligation PAST SURGICAL HISTORY OF skin graft to ankle Social History Tobacco Use Smoking status: Current Every Day Smoker Packs/day: 1.00 Years: 20.00 Pack years: 20.00 Types: Cigarettes Smokeless tobacco: Never Used Substance Use Topics Alcohol use: No Comment: Patient is a recovering alcoholic. She is sober as of 03/2007 Drug use: No Allergies: ALLERGIES Allergen Reactions Dilaudid [Hydromorp* Bactrim [Sulfametho* Bees Carbatral [Other] Demerol [Meperidine* Effexor [Venlafaxin* Flexeril [Cyclobenz* Rash Gabapentin Rash Lactose Lexapro [Escitalopr* Naprosyn [Naproxen] Rash Noraflex [Other] Pexeva [Paroxetine] Seroquel [Quetiapin* Rash Tomato GI Upset Tomato sauce Vistaril [Hydroxyzi* Wellbutrin [Bupropi* Rash Ineffective and broke out in rash Medications: ergocalciferol 50,000 unit capsule (VITAMIN D2, DRISDOL) Take 1 capsule by mouth one time a week. mirtazapine (REMERON) 15 mg tablet Take 1 tablet by mouth daily at bedtime. sertraline (ZOLOFT) 50 mg tablet Take 1 tablet by mouth twice daily. SUMAtriptan (IMITREX) 50 mg tablet Take 1 at onset of migraine. If no improvement in 2 hours repeatdose. Do not take more than 2 in a 24hr period. albuterol HFA (PROAIR HFA) 90 mcg/actuation inhaler Inhale 2 Puffs as instructed every 4 hours as needed. albuterol (PROVENTIL) 2.5 mg /3 mL (0.083 %) nebulizer solution Use 3 mL via nebulizer every 4 hours as needed for wheezing/shortness of breath. Use over 5-15minutes. clonazePAM (KLONOPIN) 0.5 mg tablet Take 1 tablet by mouth twice daily for 90 days. multivitamin tablet Take 1 tablet by mouth once daily. Nebulizer NEBULIZER FOR HOME USE. Asthma aspirin, enteric coated (ASPIRIN, ENTERIC COATED) 81 mg EC tablet Take 81 mg by mouth once daily. testosterone (ANDROGEL) 50 mg / 5 g (1%) Apply 2 Packets as directed once daily for 90 days. to clean, dry, intact skin of the shoulder and upper arms REVIEW OF SYSTEMS All systems were reviewed and were negative except what was noted in the HPI PHYSICAL EXAM BP 97/63 Pulse 73 Temp 36.3 C (97.4 F) (Temporal) Resp 16 Wt 82.6 kg (182 lb) LMP 01/26/2010 BMI 29.38 kg/m Alert in NAD NCAT EOMI MMM Neck supple w/o goiter or LAD RRR S1 S2 No murmurs. Lungs CTAB EXT warm and well perfused. No peripheral edema ROLLER STAKER non-focal IMP/PLAN: Encounter Diagnosis ICD-10-CM 1. Gender dysphoria in adult F64.0 CBC + DIFF ESTRADIOL-17B BLD TESTOSTERONE TOTAL testosterone (ANDROGEL) 50 mg / 5 g (1%) Resume testosterone (Androgel) 2 packets daily. Labs ordered today - CBC (to follow changes in hemogloblin/hematocrit), estradiol 17OH, total testosterone FU with therapist as planned. FU in 3 months for gender affirmation surveillance care, sooner PRN Medical Decision Making: Problems: Moderate: 1+ chronic illnesses with change Data: Unique test(s) ordered: 3+ Risk: Moderate: Drug management High: High risk from testing/treatment Medical Decision Making Level: 4 - Moderate Silvio Lira MD, MPH Director - [facility] Inspector - Transgender Surgery and Medicine Program [facility] Internal Medicine and Geriatrics He/Him/They/Them documented [facility] Hospital[facility] Author Dr. Brandt [facility] April 20, 2022 11:56am Note Date/Time April 20, 2022 11: 54am [facility] Medical Records Department [address] [place] [address] Emergency Department Summary 04/20/22 MR#: [id number] Acct: [id number] Name: MALAIKA IRBY Rep #:[id number] : 1970 51 From: Ariel Brandt MD PCP: Dr. Sally Gandara Status:REG ER Location: ED HPI History of Present Illness Chief Complaint: Nausea/Vomiting Detail of Chief Complaint: Nausea and dry heaves Informant: patient Onset/Context/Timing Onset: Today (Started this morning upon arising from sleep) Context: Sudden Onset Timing: Continuous (Nausea is continuous) Quality: Nausea and dry heaves Location: GI Current Severity: Mild Maximum Severity: Moderate Worsened by: Patient is concerned she is having an allergic reaction to meloxicam Relieved by: Nothing Associated Symptoms Associated Symptoms: Queasiness and epigastric discomfort Narrative Narrative: Patient is a 51-year-old woman who lists numerous allergies to medications. Herreactions are not allergic i.e. not IgE mediated. Most of them are side effectsat best. Patient took meloxicam for the first time yesterday. She is concerned she is experiencing allergic reaction. She reports nausea since arising and dry heaves. She thought if she had cereal this would make her stomach feel better. She states it did not. She denies fever, chills night sweats. She denies headache, visual, ocular auditory symptoms. She denies respiratory symptoms. She denies cardiac symptoms. She denies hematemesis or coffee-ground emesis. She has not noted color change in her stool. She denies intolerance to greasy or fried foods. Prior similar symptoms: Yes (To other medications) Recent Illness/Hospitalization: No PFSH PFSH Medical History Anxiety Asthma Disassociation disorder Fibromyalgia PTSD (post-traumatic stress disorder) Rheumatoid arthritis Scoliosis Home Medications mirtazapine 15 mg tablet 15 mg PO QHS PRN PRN Sleep 08/18/16 [History Last Taken 01/03/17] clonazepam 0.5 mg tablet (Klonopin) 0.5 mg PO BID ANXIETY 01/04/17 [History Last Taken 01/03/17] sertraline 50 mg tablet 50 mg PO DAILY MENTAL HEALTH 01/04/17 [History Last Taken 01/03/17] azithromycin 250 mg tablet 250 mg PO DAILY #6 TABLETS 03/05/22 [Rx Last Taken Unknown] benzonatate 200 mg capsule 200 mg PO BID PRN Cough 03/05/22 [History Last Taken Unknown] ibuprofen 600 mg tablet 600 mg PO PRN PRN Pain 03/05/22 [History Last Taken Unknown] prednisone 10 mg tablet See Taper PO DAILY 03/05/22 [History Last Taken Unknown] meloxicam 15 mg tablet 15 mg PO DAILY #10 tabs 04/13/22 [Rx Last Taken Unknown] Allergy/AdvReac Type Severity Reaction Status Date / Time carbamazepine Allergy NEEDS Verified 04/13/22 13:40 [From Carbatrol] FOLLOW-UP cyclobenzaprine HCl Allergy Other Verified 04/13/22 13:40 [From Flexeril] escitalopram oxalate Allergy Other Verified 04/13/22 13:40 [From Lexapro] gabapentin Allergy Other Verified 04/13/22 13:40 hydromorphone HCl Allergy Other Verified 04/13/22 13:40 [From Dilaudid] hydroxyzine HCl Allergy Other Verified 04/13/22 13:40 [From Vistaril] hydroxyzine pamoate Allergy Other Verified 04/13/22 13:40 [From Vistaril] Influenza Virus Vaccines Allergy Hives Verified 04/13/22 13:40 lactose Allergy Other Verified 04/13/22 13:40 meperidine HCl [From Demerol] Allergy Other Verified 04/13/22 13:40 naproxen [From Naprosyn] Allergy Other Verified 04/13/22 13:40 orphenadrine [From Norflex] Allergy NEEDS Verified 04/13/22 13:40 FOLLOW-UP paroxetine mesylate Allergy Other Verified 04/13/22 13:40 [From PEXEVA] quetiapine fumarate Allergy Other Verified 04/13/22 13:40 [From Seroquel] sulfamethoxazole Allergy Other Verified 04/13/22 13:40 [From Bactrim] trimethoprim [From Bactrim] Allergy Other Verified 04/13/22 13:40 venlafaxine HCl Allergy Other Verified 04/13/22 13:40 [From Effexor] venom-honey bee Allergy Other Verified 04/13/22 13:40 [bee venom (honey bee)] Social History (Updated 04/20/22 @ 11:[address] Ariel Brandt MD) household members: significant other Smoking Status: Current some day smoker tobacco type: cigarettes alcohol intake: current alcohol intake frequency: holidays/special occasions only substance use type: does not use ROS ROS ED Constitutional Constitutional ED: Denies chills, fever(s), subjective, sweats or weight loss Eyes Eyes: Denies blurry vision, change in vision or diplopia ENT ENT ED: Denies ear pain, rhinorrhea or sore throat Cardiovascular Cardiovascular: Denies chest pain, orthopnea, palpitations, paroxysmal nocturnaldyspnea or racing heartbeat Respiratory/Chest Respiratory/Chest: Denies cough, dyspnea, dyspnea on exertion, orthopnea or paroxysmal nocturnal dyspnea Gastrointestinal Gastrointestinal: Denies abdominal pain, constipation, diarrhea, melena or nausea Genitourinary Genitourinary ED: Denies dysuria, hematuria or urinary frequency Musculoskeletal Musculoskeletal: Denies arthralgias, back pain, myalgias or neck pain Neurologic Neurologic: Denies headache(s), paresthesias or weakness Psychiatric Psychiatric: Reports anxiety and depression; Denies suicidal ideation Endocrine Endocrinology: Reports cold intolerance and heat intolerance Hematologic/Lymphatic Hematologic/Lymphatic: Reports systems reviewed and no addt'l complaints, exceptas documented Allergic/Immunologic Allergic/Immunologic ED: Denies mouth swelling or tongue swelling EXAM Physical Exam Const Vital Signs: 04/20/22 09:54 Temperature 98.6 F Temperature Source Temporal Pulse Rate 74 Respiratory Rate 14 Blood Pressure 123/71 H Blood Pressure Mean 88 Pulse Ox 98 Oxygen Delivery Method Room Air Positive well nourished, well developed and obese General Appearance ED: well developed and NAD; Negative for cyanotic, diaphoretic or pallor Nutritional Appearance: obese HEENT Reports dry mucous membranes HEENT Narrative: Head is atraumatic normocephalic. Ears normal. Nares patent. Posterior pharynx out erythema or exudate. Uvula is midline. There is no deviation tongue with protrusion. Mouth ED: Yes dry mucous membranes Mouth: dry mucous membranes Eyes PERRL and EOMs intact bilaterally General Eye ED: Negative for pale conjunctiva or scleral icterus Neck no lymphadenopathy, supple and no JVD Neck Narrative: Trachea is. There is no in-store expiratory stridor. Chest Wall inspection of chest normal and palpation of chest normal Resp normal respiratory effort and clear to auscultation bilaterally Cardio regular rate, regular rhythm, S1 normal heart sound, S2 normal heart sound and no murmurs GI normal to inspection, nondistended, normoactive bowel sounds, non-distended, hepatosplenomegaly and no masses; Negative for non-tender Palpation: tender Back/Spine no CVA tenderness Cervical Spine: Negative for cervical spine tenderness Thoracic Spine / Upper Back: Negative for thoracic spinal tenderness Lumbar Spine / Lower Back: Negative for lumbar spinal tenderness Extremity normal to inspection General Extremety ED: Negative for edema or tenderness General Extremity: Negative for edema Neuro oriented x3 and CN's II-XII intact bilaterally Sensorium / Orientation: alert Psych mental status grossly normal Skin no rashes or lesions noted, no wounds and skin turgor normal General Skin Exam: Negative for jaundice or pallor MDM MDM MDM Narrative Medical decision making narrative: Patient presents with in all likelihood adverse reaction to meloxicam versus viral illness versus affective disorder. Patient received Zofran and fluids forher nausea and dehydration. Electrolytes were obtained to assess for renal function, electrolyte abnormality and anion gap. Prior records were reviewed. History & Record Review Discussion w/independent historian: Patient Additional record(s) reviewed:: Prior outpatient record (Numerous visits for fibromyalgia, anxiety pseudoseizure) and Prior labs Lab Data Attestation: I reviewed the patient's lab results. Lab results narrative: Based Sigmund panel is unremarkable. Glucose and chloride are slightly [id number] and 109 respectively. GFR is normal. Labs: Laboratory Results - last 24 hr 04/20/22 10:47 Sodium 143 Potassium 4.5 Chloride 109 H Carbon Dioxide 29.0 Anion Gap 5 BUN 15 Creatinine 0.90 Estim Creat Clear Calc 67.67 Est GFR (MDRD) Af Amer 85 Est GFR (MDRD) Non-Af 70 BUN/Creatinine Ratio 16.7 Glucose 108 H Calcium 9.0 Differential Diagnosis Differential Diagnosis: Documented under the MDM portion of the chart Treatment and Re-Evaluation :: Patient was reassessed after Zofran and fluids. She does report feeling better. She is had no dry heaves. Discharge Plan Triage Chief Complaint: Nausea/Vomiting ED Provider: Ariel Brandt Dx/Rx/DC Orders Clinical Impression: Nausea & vomiting, Fibromyalgia, Anxiety Instructions: ED Vomiting (Adult) Prescriptions: No Action mirtazapine 15 MG tablet 15 mg PO QHS PRN PRN (Reason: Sleep) Label Comments: clonazepam [Klonopin] 0.5 MG tablet 0.5 mg PO BID sertraline 50 MG tablet 50 mg PO DAILY prednisone 10 mg tablet See Taper PO DAILY Taper: Prednisone Taper 60 mg WITH BREAKFAST for 3 Days and 0 Hour 50 mg WITH BREAKFAST for 3 Days and 0 Hour 40 mg WITH BREAKFAST for 3 Days and 0 Hour 30 mg WITH BREAKFAST for 3 Days and 0 Hour 20 mg WITH BREAKFAST for 3 Days and 0 Hour 10 mg WITH BREAKFAST for 3 Days and 0 Hour Label Comments: Take 4 tabs(40 mg) for 3 days, then 3 tabs (30 mg) for 3 days, 2 tabs (20 mg) for 3 days then 1 tab (10 mg) daily for 3 days benzonatate 200 mg capsule 200 mg PO BID PRN (Reason: Cough) Label Comments: take one capsule twice daily as needed for cough ibuprofen 600 mg tablet 600 mg PO PRN PRN (Reason: Pain) Label Comments: Take one tab every 6-8 hours as needed for pain azithromycin [azithromycin] 250 mg tablet 250 mg PO DAILY Qty: 6 0RF Rx Instructions: double dose (2 tabs) on first dose/day meloxicam 15 mg tablet 15 mg PO DAILY Qty: 10 0RF Primary Care Provider: Sally Gandara Referrals: Sally Gandara [Primary Care Provider] - 1-2 Days if not improving Disposition Disposition: Home, Self Care What to do if you have Problems For any increased pain, shortness of breath, bleeding, nausea or vomiting, chestpain, or any unexpected problems, contact your Primary Care Provider. Call [facility] ([phone]) or report to the closest Emergency Room. Call 911 if necessary. 04/20/22 1156 <Electronically signed by Ariel Brandt MD> Cosigner Signature (if applicable): CC: Dr. Sally Gandara ~ Signed [facility] Work Phone: Evaluation note* Diagnosis Gender dysphoria in adult- Primary documented in [facility] encounter [facility] noteNo assessment information availableWProMed[facility] Work Phone: Evaluation note* Diagnosis Anxiety Anxiety state, unspecified Depression, unspecified depression type PTSD (post-traumatic stress disorder) Posttraumatic stress disorder documented in this encounter [facility] note* Diagnosis Anxiety Anxiety state, unspecified Depression, unspecified depression type PTSD (post-traumatic stress disorder) Posttraumatic stress disorder documented in this encounter [facility] note* Diagnosis Overweight (BMI 25.0-29.9)- Primary Overweight Recurrent UTI Urinary tract infection, site not specified [facility] Diagnosis Gender dysphoria in adult [facility]* Diagnosis Stomach pain- Primary Dyspepsia and other specified disorders of function of stomach Anxiety Anxiety state, unspecified Depression, unspecified depression type PTSD (post-traumatic stress disorder) Posttraumatic stress disorder Diarrhea, unspecified type Change in bowel habits Other symptoms involving digestive system Migraine without aura and without status migrainosus, not intractable Migraine without aura, without mention of intractable migraine without mention of status migrainosus Cigarette smoker motivated to quit Vitamin D deficiency Unspecified vitamin D deficiency Chronic midline low back pain with bilateral sciatica DDD (degenerative disc disease), thoracolumbar Degeneration of thoracic or thoracolumbar intervertebral disc [facility]* Diagnosis Encounter for screening mammogram for breast cancer [facility]* Diagnosis Housing problems- Primary Unspecified housing or economic circumstance Need for community resource [facility]* Diagnosis Gender dysphoria in adult- Primary Psychogenic nonepileptic seizure Anxiety Anxiety state, unspecified Depression, unspecified depression type PTSD (post-traumatic stress disorder) Posttraumatic stress disorder Housing instability, currently housed [facility]* Diagnosis Flu-like symptoms- Primary Other general symptoms Nausea and vomiting, unspecified vomiting type Diarrhea, unspecified type documented in this encounter [facility] note* Diagnosis Anxiety Anxiety state, unspecified Depression, unspecified depression type PTSD (post-traumatic stress disorder) Posttraumatic stress disorder Wheezing Migraine without aura and without status migrainosus, not intractable Migraine without aura, without mention of intractable migraine without mention of status migrainosus documented in this encounter [facility] note* Diagnosis Tarsal tunnel syndrome of both lower extremities- Primary Neuropathy Mononeuritis of unspecified site documented in this encounter [facility] note* Diagnosis Gender incongruence- Primary documented in this encounter [facility] note* Diagnosis Gender dysphoria in adult- Primary Housing insecurity documented in this encounter [facility] note* Diagnosis Housing insecurity- Primary documented in this encounter [facility] note* Diagnosis Anxiety Anxiety state, unspecified Depression, unspecified depression type PTSD (post-traumatic stress disorder) Posttraumatic stress disorder documented in this encounter [facility] note* Diagnosis Gender dysphoria in adult- Primary documented in this encounter [facility] note* Diagnosis Anxiety Anxiety state, unspecified Depression, unspecified depression type PTSD (post-traumatic stress disorder) Posttraumatic stress disorder documented in this encounter [facility] note* Diagnosis Gender incongruence documented in this encounter [facility] note* Diagnosis Gender dysphoria in adult- Primary Tobacco use Tobacco use disorder documented in this encounter [facility] note* Diagnosis Encounter for screening mammogram for breast cancer documented in this encounter [facility] note* Diagnosis Arterial ischemic stroke (HCC)- Primary Unspecified cerebral artery occlusion with cerebral infarction [facility] Diagnosis Anxiety Anxiety state, unspecified Depression, unspecified depression type PTSD (post-traumatic stress disorder) Posttraumatic stress disorder Mixed stress and urge urinary incontinence Mixed incontinence urge and stress (male)(female) OAB (overactive bladder) Hypertonicity of bladder documented in this encounter [facility] note* Diagnosis Acute bronchitis, unspecified organism Wheezing Gender incongruence documented in this encounter [facility] note* Diagnosis Severe headache- Primary Headache documented in this encounter [facility] note* Diagnosis [facility] for [facility] Acute UTI- Primary Urinary tract infection, site not specified Urinary frequency [facility] Diagnosis Dysuria- Primary Urinary frequency [facility]* Diagnosis Abnormal mammogram Abnormal mammogram, unspecified [facility] Diagnosis Abnormal ultrasound of breast Other (abnormal) findings on radiological examination of breast documented in this encounter [facility] note* Diagnosis Gender incongruence- Primary Anxiety Anxiety state, unspecified Depression, unspecified depression type PTSD (post-traumatic stress disorder) Posttraumatic stress disorder Status post hysterectomy with oophorectomy Acquired absence of both cervix and uterus Housing instability, currently housed Moderate mixed hyperlipidemia not requiring statin therapy Vaping-related disorder History of stroke Transient ischemic attack (TIA), and cerebral infarction without residual deficits [facility] Diagnosis Tobacco abuse Tobacco use disorder [facility]* Diagnosis Tobacco use- Primary Tobacco use disorder Neuropathy Mononeuritis of unspecified site [facility]* Diagnosis Anxiety Anxiety state, unspecified Depression, unspecified depression type PTSD (post-traumatic stress disorder) Posttraumatic stress disorder documented in this encounter [facility] note* Diagnosis Bacterial sinusitis- Primary Unspecified sinusitis (chronic) [facility]* Diagnosis Gender incongruence- Primary [facility]* Diagnosis PTSD (post-traumatic stress disorder)- Primary Posttraumatic stress disorder Depression, unspecified depression type Anxiety Anxiety state, unspecified OAB (overactive bladder) Hypertonicity of bladder documented in this encounter [facility] note* Diagnosis Anxiety Anxiety state, unspecified Depression, unspecified depression type PTSD (post-traumatic stress disorder) Posttraumatic stress disorder [facility] Additional Instructions Thank you for trusting us with your care today! Please take Tylenol (2 pills, 650 mg), ibuprofen (2 pills, 400 mg) every 6 hours as needed for pain and fever control. Please take Zofran as prescribed. Please return to the emergency department if your symptoms change or worsen. Specifically he cannot tolerate medicine by mouth. If you develop abdominal pain or chest pain. If you lose consciousness. Please follow with your primary care physician for further outpatient evaluation and management.[facility] Work Phone: [facility] (narrative)* Diagnostic Procedure Only (Routine) - Pending Review Specialty Diagnoses / Procedures Referred By Franky kinney Referred To Contact [facility] Diagnoses Encounter for screening mammogram for breast cancer Procedures FRANSISCO SCREENING SCREENING MAMMOGRAPHY BI 2-VIEW BREAST INC Raj Branch MD [address] [place] [address] [facility] [address] [place] [address] Referral ID Status Reason Start Date Expiration Date Visits Requested Visits Authorized [id number] Pending Review Auto-Generat ed Referral 09/13/2021 10/13/2022 1 1 T [facility] for referral (narrative)* Diagnostic Procedure Only (Routine) - Closed Specialty Diagnoses / Procedures Referred By Franky kinney Referred To Contact [facility] Diagnoses Abnormal ultrasound of breast Procedures US BIOPSY BREAST RIGHT BX BREAST W/DEVICE 1ST LESION ULTRASOUND Yaritza Roblero MD [address] [place] [address] [facility] [address] [place] [address] Referral ID Status Reason Start Date Expiration Date V isits Requested Visits Authorized [id number] Closed Auto-Generate d Referral 09/09/2023 10/08/2024 1 1 T [facility] for visit Narrative* Diagnostic Procedure Only (Routine) - Closed Specialty Diagnoses / Procedures Referred By Franky t Referred To Contact [facility] Diagnoses Encounter for screening mammogram for breast cancer Procedures FRANSISCO SCREENING SCREENING MAMMOGRAPHY BI 2-VIEW BREAST INC Raj Branch MD [address] [place] [address] [facility] [address] [place] [address] Referral ID Status Reason Start Date Expiration Date V isits Requested Visits Authorized [id number] Closed Auto-Generate d Referral 08/22/2022 09/21/2023 1 1 [facility] for visit Narrative* Diagnostic Procedure Only (Routine) - Closed Specialty Diagnoses / Procedures Referred By Contac t Referred To Contact [facility] Diagnoses Encounter for screening mammogram for breast cancer Procedures FRANSISCO SCREENING SCREENING MAMMOGRAPHY BI 2-[place] [address] [place] [address] [facility] [address] [place] [phone] Referral ID Status Reason Start Date Expiration Date V isits Requested Visits Authorized [id number] Closed Auto-Generate d Referral 01/23/2023 02/22/2024 1 1 [facility] for visit Narrative* Diagnostic Procedure Only (Routine) - Closed Specialty Diagnoses / Procedures Referred By Contac t Referred To Contact [facility] Diagnoses Abnormal mammogram Procedures US BREAST LTD LEFT US BREAST UNI REAL TIME WITH IMAGE LIMITED Raj Ocampo MD [address] [place] [address] [facility] [address] [place] [phone] Referral ID Status Reason Start Date Expiration Date V isits Requested Visits Authorized [id number] Closed Auto-Generate d Referral 01/31/2023 03/01/2024 1 1 [facility] for visit Narrative* Diagnostic Procedure Only (Routine) - Closed Specialty Diagnoses / Procedures Referred By Contac t Referred To Contact [facility] Diagnoses Abnormal mammogram Procedures FRANSISCO DIAGNOSTIC LEFT DIAGNOSTIC MAMMOGRAPHY COMPUTER-AIDED DETCJ UNI Raj Ocampo MD [address] [place] [address] [facility] [address] [place] [phone] Referral ID Status Reason Start Date Expiration Date V isits Requested Visits Authorized [id number] Closed Auto-Generate d Referral 01/31/2023 03/01/2024 1 1 [facility] for visit Narrative* Diagnostic Procedure Only (Routine) - Closed Specialty Diagnoses / Procedures Referred By Contac t Referred To Contact [facility] Diagnoses Abnormal ultrasound of breast Procedures US BIOPSY BREAST RIGHT BX BREAST W/DEVICE 1ST LESION ULTRASOUND GUID Yaritza Carlson MD [address] [place] [address] [facility] [address] [place] [address] Referral ID Status Reason Start Date Expiration Date V isits Requested Visits Authorized [id number] Closed Auto-Generate d Referral 09/09/2023 10/08/2024 1 1 [facility] Summary Purpose Family History No Family History Records Found Relationship Condition Age at Onset Recorded Date/T zachery Unknown Family History?Diabetes, - Unknown N ov2016 3:27pm Family History?Unknown Unknown Novem 2016 3:27pm Relationship Condition Age at Onset Recorded Date/T zachery Unknown Family History?Diabetes, - Unknown N ov2016 2:27pm Family History?Unknown Unknown Novem 2016 2:27pm Advance Directives No Advanced Directives Records FoundDocuments on File Type Date Recorded Patient Mustanger Expl anation Advance Directive(s) Advance Directive Response Recorded Date/ Time Advance Directives No January 20, 2016 5:16pm Living Will No June 13, 2021 5: 51pm Power of [employer] No June 13, 2021 5:51pm Documents on File Type Date Recorded Patient Mustanger Expl anation Advance Directive(s) Advance Directive Response Recorded Date/ Time Advance Directives No January 20, 2016 5:16pm Living Will No July 10, 2021 9 :34am Power of [employer] No July 10, 2021 9:34am Advance Directive Response Recorded Date/ Time Advance Directives No January 20, 2016 5:16pm Living Will No August 07, 2021 9:02am Power of [employer] No August 07 9:02am Advance Directive Response Recorded Date/ Time Advance Directives No January 20, 2016 5:16pm Living Will No August 29, 2021 8:52am Power of [employer] No August 29 8:52am Advance Directive Response Recorded Date/ Time Advance Directives No January 20, 2016 5:16pm Living Will No November 05, 2021 2:01am Power of [employer] No October 2:01am Advance Directive Response Recorded Date/ Time Advance Directives No January 20, 2016 5:16pm Living Will No November 22 2:15am Power of [employer] No November 22, 2021 2:15am Advance Directive Response Recorded Date/ Time Advance Directives No January 20, 2016 5:16pm Living Will No November 24 12:30am Power of [employer] No November 24, 2021 12:30am Advance Directive Response Recorded Date/ Time Advance Directives No January 20, 2016 4:16pm Living Will No March 05 10:35am Power of [employer] No March 05, 2022 10:35am Advance Directive Response Recorded Date/ Time Advance Directives No January 20, 2016 4:16pm Living Will No April 13, 2022 1:41pm Power of [employer] No April 13 1:41pm Advance Directive Response Recorded Date/ Time Advance Directives No January 20, 2016 4:16pm Living Will No April 20, 2022 9:56am Power of [employer] No April 20 9:56am Advance Directive Response Recorded Date/ Time Advance Directives No January 20, 2016 5:16pm Living Will No July 11, 2022 1 2:17pm Power of [employer] No July 11, 2022 12:17pm Latest Code Status on File Code Status Date Activated Date Inactivated Comments Full Code 04/02/2023 1:14 PM Question Answer Comments Full Code Order Discussed With: Patient Date Activated Date Inactivated Comments 04/02/2023 1:14 PM 04/04/2023 10:02 PM Question Answer Comments Full Code Order Discussed With: Patient Date Activated Date Inactivated Comments 04/02/2023 1:14 PM 04/04/2023 10:02 PM Question Answer Comments Full Code Order Discussed With: Patient Discharge Instructions * Attachments The following attachments cannot be sent through Care Everywhere. * Lightheadedness or Faintness (Burkinan) * Fatigue (Burkinan) * Headache (Burkinan) documented in this encounter* Attachments The following attachments cannot be sent through Care Everywhere. * Anxiety Disorder (Burkinan) documented in this encounter* Instructions* Octavio Ruiz MD - 04/12/2020 Continue all current medications * Attachments The following attachments cannot be sent through Care Everywhere. * Migraine Headache (Burkinan) documented in this encounter Assessments Diagnosis Lightheadedness Dizziness and giddiness Nonintractable headache, unspecified chronicity pattern, unspecified headache type Fatigue, unspecified type Diagnosis Anxiety state Anxiety state, unspecified Diagnosis Other migraine without status migrainosus, not intractable- Primary Reason for Referral Specialty Diagnoses / Procedures Referred By Contac t Referred To Contact Diagnoses Gender [place] [address] [place] [address] Referral ID Status Reason Start Date Expiration Date Visits Re quested Visits Authorized [id number] Closed 1 1 Specialty Diagnoses / Procedures Referred By Contac t Referred To Contact Urology Diagnoses Recurrent UTI Procedures CONSULT TO UROLOGY OFFICE/OUTPATIENT [facility] [place] 60-74 MINUTES Raj Ocampo MD [address] [place] [address] Referral ID Status Reason Start Date Expiration Date Visits Requested Visits Authorized [id number] Authorized PCP Requested Referral 06/17/2021 06/17/2022 1 1 Specialty Diagnoses / Procedures Referred By Contac t Referred To Contact Nutrition Diagnoses Overweight (BMI 25.0-29.9) Procedures CONSULT TO NUTRITION THERAPY OFFICE/OUTPATIENT [facility] [place] 60-74 MINUTES Raj Ocampo MD [address] [place] [address] Referral ID Status Reason Start Date Expiration Date Visits Requested Visits Authorized [id number] Authorized PCP Requested Referral 06/17/2021 06/17/2022 1 1 Specialty Diagnoses / Procedures Referred By Contac t Referred To Contact Gastroenterology Diagnoses Stomach pain Diarrhea, unspecified type Change in bowel habits Procedures CONSULT TO GASTROENTEROLOGY OFFICE/OUTPATIENT [facility] [place] 60-74 MINUTES Raj Ocampo MD [address] [place] [address] Referral ID Status Reason Start Date Expiration Date Visits Requested Visits Authorized [id number] Authorized PCP Requested Referral 07/28/2021 07/28/2022 1 1 Specialty Diagnoses / Procedures Referred By Contac t Referred To Contact Diagnoses Raj Baldwin MD [address] [place] [phone] Referral ID Status Reason Start Date Expiration Date Visits Re quested Visits Authorized [id number] Closed 1 1 Specialty Diagnoses / Procedures Referred By Contac t Referred To Contact Diagnoses Gender incongruence Gerry Barton PA-C [address] [place] [address] Referral ID Status Reason Start Date Expiration Date Visits Re quested Visits Authorized [id number] Closed 1 1 Specialty Diagnoses / Procedures Referred By Contac t Referred To Contact Diagnoses [place] [address] [place] [address] Referral ID Status Reason Start Date Expiration Date Visits Re quested Visits Authorized [id number] Closed 1 1 Specialty Diagnoses / Procedures Referred By Contac t Referred To Contact Diagnoses [place] [address] [place] [address] Referral ID Status Reason Start Date Expiration Date V isits Requested Visits Authorized [id number] Authorized 10/12/2023 10/10/2024 1 1 Chief Complaint and Reason for Visit Chief Complaint LEFT HIP PAIN Chief Complaint LEFT HIP PAIN ABD PAIN Chief Complaint LEFT HIP PAIN ABD PAIN gi bleed Chief Complaint LEFT HIP PAIN ABD PAIN gi bleed SORE THROAT Chief Complaint ABD PAIN gi bleed SORE THROAT ANXIETY Chief Complaint gi bleed SORE THROAT ANXIETY URINARY COMPLAINTS Chief Complaint gi bleed SORE THROAT ANXIETY URINARY COMPLAINTS SI Chief Complaint ANXIETY URINARY COMPLAINTS SI COUGH Chief Complaint COUGH back, hips, hands Chief Complaint COUGH back, hips, hands NAUSEA Chief Complaint back, hips, hands NAUSEA vomiting Medications Administered Section Inactive Administered Medications - up to 3 most recent administrations Medication Order MAR Action Action Date Dose Rate Site ondansetron 4 mg tab(s) (ZOFRAN) 4 mg, ORAL, ONCE, 1 dose, On Sat02/23/22 at 1030 Given 02/23/2022 11:00 AM EST 4 mg Health Concerns Infection Onset Date Last Indicated Resolved Time COVID-19 Rule-Out 02/23/2022 02/23/2022 Infection Onset Date Last Indicated Resolved Time COVID-19 Rule-Out 02/23/2022 02/23/2022 02/23/2022 8:41 PM EST Additional Source Comments INFORMATION SOURCE (unrecogn ized section and content) DATE CREATED AUTHOR 03/20/2019 [facility] Christina Gillespie DATE CREATED AUTHOR AUTHOR'S ORGANIZ ATION 04/14/2020 [facility] DATE CREATED AUTHOR AUTHOR'S ORGANIZ ATION 10/07/2021 [facility] DATE CREATED AUTHOR AUTHOR'S ORGANIZ ATION 03/31/2022 [facility] DATE CREATED AUTHOR AUTHOR'S ORGANIZ ATION 02/10/2023 [facility] DATE CREATED AUTHOR AUTHOR'S ORGANIZ ATION 04/03/2023 [facility] DATE CREATED AUTHOR AUTHOR'S ORGANIZ ATION 04/12/2023 [facility] DATE CREATED AUTHOR AUTHOR'S ORGANIZ ATION 05/16/2023 [facility] DATE CREATED AUTHOR AUTHOR'S ORGANIZ ATION 07/06/2023 [facility] DATE CREATED AUTHOR AUTHOR'S ORGANIZ ATION 10/09/2023 [facility] DATE CREATED AUTHOR AUTHOR'S ORGANIZ ATION 03/14/2024 [facility] DATE CREATED AUTHOR AUTHOR'S ORGANIZ ATION 11/26/2024 [facility] Reason for Visit (unrecogniz ed section and content) Reason Comments Dizziness Nausea Reason Comments Panic Attack Started to have anxi ety around 1540 and took medication Sertraline and the meds are not helping. Pt stated nothing provoked the anxiety. 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 Reason Comments Headache Reason Comments Follow Up restarting HRT Reason Onset Date Comments Refill Request 06/22/2021 Reason Comments Refill Request Reason Comments Release Of Medical Records Reason Onset Date Comments Refill Request 08/28/2021 Reason Comments Follow Up Reason Comments Legal Recovery Specialist - Other Reason Comments Ambulatory Social Work Comm res Reason Comments Psychiatric Problem Reason Comments Nausea & Vomiting NVD, weakness, fatig ue, cough, bodyaches x3 days Reason Comments Results Reason Onset Date Comments Refill Request 02/05/2022 Refill Request 03/09/2022 Reason Comments New Patient Pain Reason Comments Insurance Authorization Reason Comments Follow Up Patient wants to res tart HRT Reason Comments F/U on HT Reason Comments Ambulatory Social Work Community Resourc es Reason Comments TG WPATH Letter Reason Comments Follow Up HRT Reason Onset Date Comments Refill Request 12/20/2022 Reason Onset Date Comments Refill Request 12/24/2022 Reason Onset Date Comments Refill Request 12/31/2022 Reason Comments Care Coordination Reason Comments PHOTOS TAKEN Reason Onset Date Comments Refill Request 04/12/2023 Reason Comments Headache Migraine, light sens itive, nausea x 1 day Reason Comments UTI Low back pain, pelvi c pain and pressure, frequency x 1 day Reason Comments Bladder Infection UTI Reason Onset Date Comments Orders Results 08/14/2023 Reason Comments Patient Update Reason Comments Follow Up HRT Reason Comments Insurance Authorization Reason Comments Nicotine Dependence Reason Onset Date Comments Refill Request 03/03/2024 Reason Comments URI Sinus Problem Headache Nurse Triage Call Reason Comments Pain, Sinus Pressure, pain, lots of mucous, green and clots of blood, facial pressure and pain, cough with throat congestion, headache, ear pain x 2 weeks Reason Comments gender care Reason Onset Date Comments Refill Request 04/28/2024 Reason Comments Nurse Triage Call Reason Comments Posttraumatic Stress Disorder Ordered Prescriptions (unrec ognized section and content) Prescription Sig Dispensed Refills Start Date End Da te ondansetron (ZOFRAN ODT) 4 MG disintegrating tablet Take 1 tablet by mouth every 8 hours as needed for Nausea 20 tablet 0 04/12/2020 Source Comments (unrecognize d section and content) In the event this informatio n is protected by the Federal Confidentiality of Alcohol and Drug Abuse Patient Records regulations: The Federal rules restrict any use of the information to criminally investigate or prosecute any alcohol or drug abuse patient.[facility] the event this information is protected by the Federal Confidentiality of Alcohol and Drug Abuse Patient Records regulations: The Federal rules restrict any use of the information to criminally investigate or prosecute any alcohol or drug abuse patient.[facility] HospitalIn the event this information is protected by the Federal Confidentiality of Alcohol and Drug Abuse Patient Records regulations: The Federal rules restrict any use of the information to criminally investigate or prosecute any alcohol or drug abuse patient.[facility] HospitalIn the event this information is protected by the Federal Confidentiality of Alcohol and Drug Abuse Patient Records regulations: The Federal rules restrict any use of the information to criminally investigate or prosecute any alcohol or drug abuse patient.[facility] HospitalIn the event this information is protected by the Federal Confidentiality of Alcohol and Drug Abuse Patient Records regulations: The Federal rules restrict any use of the information to criminally investigate or prosecute any alcohol or drug abuse patient.[facility] HospitalIn the event this information is protected by the Federal Confidentiality of Alcohol and Drug Abuse Patient Records regulations: The Federal rules restrict any use of the information to criminally investigate or prosecute any alcohol or drug abuse patient.[facility] HospitalIn the event this information is protected by the Federal Confidentiality of Alcohol and Drug Abuse Patient Records regulations: The Federal rules restrict any use of the information to criminally investigate or prosecute any alcohol or drug abuse patient.[facility] HospitalIn the event this information is protected by the Federal Confidentiality of Alcohol and Drug Abuse Patient Records regulations: The Federal rules restrict any use of the information to criminally investigate or prosecute any alcohol or drug abuse patient.[facility] HospitalIn the event this information is protected by the Federal Confidentiality of Alcohol and Drug Abuse Patient Records regulations: The Federal rules restrict any use of the information to criminally investigate or prosecute any alcohol or drug abuse patient.[facility] HospitalIn the event this information is protected by the Federal Confidentiality of Alcohol and Drug Abuse Patient Records regulations: The Federal rules restrict any use of the information to criminally investigate or prosecute any alcohol or drug abuse patient.[facility] HospitalIn the event this information is protected by the Federal Confidentiality of Alcohol and Drug Abuse Patient Records regulations: The Federal rules restrict any use of the information to criminally investigate or prosecute any alcohol or drug abuse patient.[facility] HospitalIn the event this information is protected by the Federal Confidentiality of Alcohol and Drug Abuse Patient Records regulations: The Federal rules restrict any use of the information to criminally investigate or prosecute any alcohol or drug abuse patient.[facility] HospitalIn the event this information is protected by the Federal Confidentiality of Alcohol and Drug Abuse Patient Records regulations: The Federal rules restrict any use of the information to criminally investigate or prosecute any alcohol or drug abuse patient.[facility] HospitalIn the event this information is protected by the Federal Confidentiality of Alcohol and Drug Abuse Patient Records regulations: The Federal rules restrict any use of the information to criminally investigate or prosecute any alcohol or drug abuse patient.[facility] HospitalIn the event this information is protected by the Federal Confidentiality of Alcohol and Drug Abuse Patient Records regulations: The Federal rules restrict any use of the information to criminally investigate or prosecute any alcohol or drug abuse patient.[facility] HospitalIn the event this information is protected by the Federal Confidentiality of Alcohol and Drug Abuse Patient Records regulations: The Federal rules restrict any use of the information to criminally investigate or prosecute any alcohol or drug abuse patient.[facility] HospitalIn the event this information is protected by the Federal Confidentiality of Alcohol and Drug Abuse Patient Records regulations: The Federal rules restrict any use of the information to criminally investigate or prosecute any alcohol or drug abuse patient.[facility] HospitalIn the event this information is protected by the Federal Confidentiality of Alcohol and Drug Abuse Patient Records regulations: The Federal rules restrict any use of the information to criminally investigate or prosecute any alcohol or drug abuse patient.[facility] HospitalIn the event this information is protected by the Federal Confidentiality of Alcohol and Drug Abuse Patient Records regulations: The Federal rules restrict any use of the information to criminally investigate or prosecute any alcohol or drug abuse patient.[facility] HospitalIn the event this information is protected by the Federal Confidentiality of Alcohol and Drug Abuse Patient Records regulations: The Federal rules restrict any use of the information to criminally investigate or prosecute any alcohol or drug abuse patient.[facility] HospitalIn the event this information is protected by the Federal Confidentiality of Alcohol and Drug Abuse Patient Records regulations: The Federal rules restrict any use of the information to criminally investigate or prosecute any alcohol or drug abuse patient.[facility] HospitalIn the event this information is protected by the Federal Confidentiality of Alcohol and Drug Abuse Patient Records regulations: The Federal rules restrict any use of the information to criminally investigate or prosecute any alcohol or drug abuse patient.[facility] HospitalIn the event this information is protected by the Federal Confidentiality of Alcohol and Drug Abuse Patient Records regulations: The Federal rules restrict any use of the information to criminally investigate or prosecute any alcohol or drug abuse patient.[facility] HospitalIn the event this information is protected by the Federal Confidentiality of Alcohol and Drug Abuse Patient Records regulations: The Federal rules restrict any use of the information to criminally investigate or prosecute any alcohol or drug abuse patient.[facility] HospitalIn the event this information is protected by the Federal Confidentiality of Alcohol and Drug Abuse Patient Records regulations: The Federal rules restrict any use of the information to criminally investigate or prosecute any alcohol or drug abuse patient.[facility] HospitalIn the event this information is protected by the Federal Confidentiality of Alcohol and Drug Abuse Patient Records regulations: The Federal rules restrict any use of the information to criminally investigate or prosecute any alcohol or drug abuse patient.[facility] HospitalIn the event this information is protected by the Federal Confidentiality of Alcohol and Drug Abuse Patient Records regulations: The Federal rules restrict any use of the information to criminally investigate or prosecute any alcohol or drug abuse patient.[facility] HospitalIn the event this information is protected by the Federal Confidentiality of Alcohol and Drug Abuse Patient Records regulations: The Federal rules restrict any use of the information to criminally investigate or prosecute any alcohol or drug abuse patient.[facility] HospitalIn the event this information is protected by the Federal Confidentiality of Alcohol and Drug Abuse Patient Records regulations: The Federal rules restrict any use of the information to criminally investigate or prosecute any alcohol or drug abuse patient.[facility] HospitalIn the event this information is protected by the Federal Confidentiality of Alcohol and Drug Abuse Patient Records regulations: The Federal rules restrict any use of the information to criminally investigate or prosecute any alcohol or drug abuse patient.[facility] HospitalIn the event this information is protected by the Federal Confidentiality of Alcohol and Drug Abuse Patient Records regulations: The Federal rules restrict any use of the information to criminally investigate or prosecute any alcohol or drug abuse patient.[facility] HospitalIn the event this information is protected by the Federal Confidentiality of Alcohol and Drug Abuse Patient Records regulations: The Federal rules restrict any use of the information to criminally investigate or prosecute any alcohol or drug abuse patient.[facility] HospitalIn the event this information is protected by the Federal Confidentiality of Alcohol and Drug Abuse Patient Records regulations: The Federal rules restrict any use of the information to criminally investigate or prosecute any alcohol or drug abuse patient.[facility] HospitalIn the event this information is protected by the Federal Confidentiality of Alcohol and Drug Abuse Patient Records regulations: The Federal rules restrict any use of the information to criminally investigate or prosecute any alcohol or drug abuse patient.[facility] HospitalIn the event this information is protected by the Federal Confidentiality of Alcohol and Drug Abuse Patient Records regulations: The Federal rules restrict any use of the information to criminally investigate or prosecute any alcohol or drug abuse patient.[facility] HospitalIn the event this information is protected by the Federal Confidentiality of Alcohol and Drug Abuse Patient Records regulations: The Federal rules restrict any use of the information to criminally investigate or prosecute any alcohol or drug abuse patient.[facility] HospitalIn the event this information is protected by the Federal Confidentiality of Alcohol and Drug Abuse Patient Records regulations: The Federal rules restrict any use of the information to criminally investigate or prosecute any alcohol or drug abuse patient.[facility] HospitalIn the event this information is protected by the Federal Confidentiality of Alcohol and Drug Abuse Patient Records regulations: The Federal rules restrict any use of the information to criminally investigate or prosecute any alcohol or drug abuse patient.[facility] HospitalIn the event this information is protected by the Federal Confidentiality of Alcohol and Drug Abuse Patient Records regulations: The Federal rules restrict any use of the information to criminally investigate or prosecute any alcohol or drug abuse patient.[facility] HospitalIn the event this information is protected by the Federal Confidentiality of Alcohol and Drug Abuse Patient Records regulations: The Federal rules restrict any use of the information to criminally investigate or prosecute any alcohol or drug abuse patient.[facility] HospitalIn the event this information is protected by the Federal Confidentiality of Alcohol and Drug Abuse Patient Records regulations: The Federal rules restrict any use of the information to criminally investigate or prosecute any alcohol or drug abuse patient.[facility] HospitalIn the event this information is protected by the Federal Confidentiality of Alcohol and Drug Abuse Patient Records regulations: The Federal rules restrict any use of the information to criminally investigate or prosecute any alcohol or drug abuse patient.[facility] HospitalIn the event this information is protected by the Federal Confidentiality of Alcohol and Drug Abuse Patient Records regulations: The Federal rules restrict any use of the information to criminally investigate or prosecute any alcohol or drug abuse patient.[facility] HospitalIn the event this information is protected by the Federal Confidentiality of Alcohol and Drug Abuse Patient Records regulations: The Federal rules restrict any use of the information to criminally investigate or prosecute any alcohol or drug abuse patient.[facility] HospitalIn the event this information is protected by the Federal Confidentiality of Alcohol and Drug Abuse Patient Records regulations: The Federal rules restrict any use of the information to criminally investigate or prosecute any alcohol or drug abuse patient.[facility] HospitalIn the event this information is protected by the Federal Confidentiality of Alcohol and Drug Abuse Patient Records regulations: The Federal rules restrict any use of the information to criminally investigate or prosecute any alcohol or drug abuse patient.[facility] HospitalIn the event this information is protected by the Federal Confidentiality of Alcohol and Drug Abuse Patient Records regulations: The Federal rules restrict any use of the information to criminally investigate or prosecute any alcohol or drug abuse patient.[facility] HospitalIn the event this information is protected by the Federal Confidentiality of Alcohol and Drug Abuse Patient Records regulations: The Federal rules restrict any use of the information to criminally investigate or prosecute any alcohol or drug abuse patient.[facility] HospitalIn the event this information is protected by the Federal Confidentiality of Alcohol and Drug Abuse Patient Records regulations: The Federal rules restrict any use of the information to criminally investigate or prosecute any alcohol or drug abuse patient.[facility] HospitalIn the event this information is protected by the Federal Confidentiality of Alcohol and Drug Abuse Patient Records regulations: The Federal rules restrict any use of the information to criminally investigate or prosecute any alcohol or drug abuse patient.[facility] HospitalIn the event this information is protected by the Federal Confidentiality of Alcohol and Drug Abuse Patient Records regulations: The Federal rules restrict any use of the information to criminally investigate or prosecute any alcohol or drug abuse patient.[facility] HospitalIn the event this information is protected by the Federal Confidentiality of Alcohol and Drug Abuse Patient Records regulations: The Federal rules restrict any use of the information to criminally investigate or prosecute any alcohol or drug abuse patient.[facility] HospitalIn the event this information is protected by the Federal Confidentiality of Alcohol and Drug Abuse Patient Records regulations: The Federal rules restrict any use of the information to criminally investigate or prosecute any alcohol or drug abuse patient.[facility] HospitalIn the event this information is protected by the Federal Confidentiality of Alcohol and Drug Abuse Patient Records regulations: The Federal rules restrict any use of the information to criminally investigate or prosecute any alcohol or drug abuse patient.[facility] HospitalIn the event this information is protected by the Federal Confidentiality of Alcohol and Drug Abuse Patient Records regulations: The Federal rules restrict any use of the information to criminally investigate or prosecute any alcohol or drug abuse patient.[facility] HospitalIn the event this information is protected by the Federal Confidentiality of Alcohol and Drug Abuse Patient Records regulations: The Federal rules restrict any use of the information to criminally investigate or prosecute any alcohol or drug abuse patient.[facility] HospitalIn the event this information is protected by the Federal Confidentiality of Alcohol and Drug Abuse Patient Records regulations: The Federal rules restrict any use of the information to criminally investigate or prosecute any alcohol or drug abuse patient.[facility] HospitalIn the event this information is protected by the Federal Confidentiality of Alcohol and Drug Abuse Patient Records regulations: The Federal rules restrict any use of the information to criminally investigate or prosecute any alcohol or drug abuse patient.[facility] HospitalIn the event this information is protected by the Federal Confidentiality of Alcohol and Drug Abuse Patient Records regulations: The Federal rules restrict any use of the information to criminally investigate or prosecute any alcohol or drug abuse patient.[facility] HospitalIn the event this information is protected by the Federal Confidentiality of Alcohol and Drug Abuse Patient Records regulations: The Federal rules restrict any use of the information to criminally investigate or prosecute any alcohol or drug abuse patient.[facility] HospitalIn the event this information is protected by the Federal Confidentiality of Alcohol and Drug Abuse Patient Records regulations: The Federal rules restrict any use of the information to criminally investigate or prosecute any alcohol or drug abuse patient.[facility] HospitalIn the event this information is protected by the Federal Confidentiality of Alcohol and Drug Abuse Patient Records regulations: The Federal rules restrict any use of the information to criminally investigate or prosecute any alcohol or drug abuse patient.[facility] HospitalIn the event this information is protected by the Federal Confidentiality of Alcohol and Drug Abuse Patient Records regulations: The Federal rules restrict any use of the information to criminally investigate or prosecute any alcohol or drug abuse patient.[facility] HospitalIn the event this information is protected by the Federal Confidentiality of Alcohol and Drug Abuse Patient Records regulations: The Federal rules restrict any use of the information to criminally investigate or prosecute any alcohol or drug abuse patient.[facility] HospitalIn the event this information is protected by the Federal Confidentiality of Alcohol and Drug Abuse Patient Records regulations: The Federal rules restrict any use of the information to criminally investigate or prosecute any alcohol or drug abuse patient.[facility] HospitalIn the event this information is protected by the Federal Confidentiality of Alcohol and Drug Abuse Patient Records regulations: The Federal rules restrict any use of the information to criminally investigate or prosecute any alcohol or drug abuse patient.[facility] HospitalIn the event this information is protected by the Federal Confidentiality of Alcohol and Drug Abuse Patient Records regulations: The Federal rules restrict any use of the information to criminally investigate or prosecute any alcohol or drug abuse patient.[facility] HospitalIn the event this information is protected by the Federal Confidentiality of Alcohol and Drug Abuse Patient Records regulations: The Federal rules restrict any use of the information to criminally investigate or prosecute any alcohol or drug abuse patient.[facility] HospitalIn the event this information is protected by the Federal Confidentiality of Alcohol and Drug Abuse Patient Records regulations: The Federal rules restrict any use of the information to criminally investigate or prosecute any alcohol or drug abuse patient.[facility] HospitalIn the event this information is protected by the Federal Confidentiality of Alcohol and Drug Abuse Patient Records regulations: The Federal rules restrict any use of the information to criminally investigate or prosecute any alcohol or drug abuse patient.[facility] HospitalIn the event this information is protected by the Federal Confidentiality of Alcohol and Drug Abuse Patient Records regulations: The Federal rules restrict any use of the information to criminally investigate or prosecute any alcohol or drug abuse patient.[facility] HospitalIn the event this information is protected by the Federal Confidentiality of Alcohol and Drug Abuse Patient Records regulations: The Federal rules restrict any use of the information to criminally investigate or prosecute any alcohol or drug abuse patient.[facility] HospitalIn the event this information is protected by the Federal Confidentiality of Alcohol and Drug Abuse Patient Records regulations: The Federal rules restrict any use of the information to criminally investigate or prosecute any alcohol or drug abuse patient.[facility] HospitalIn the event this information is protected by the Federal Confidentiality of Alcohol and Drug Abuse Patient Records regulations: The Federal rules restrict any use of the information to criminally investigate or prosecute any alcohol or drug abuse patient.[facility] HospitalIn the event this information is protected by the Federal Confidentiality of Alcohol and Drug Abuse Patient Records regulations: The Federal rules restrict any use of the information to criminally investigate or prosecute any alcohol or drug abuse patient.[facility] HospitalIn the event this information is protected by the Federal Confidentiality of Alcohol and Drug Abuse Patient Records regulations: The Federal rules restrict any use of the information to criminally investigate or prosecute any alcohol or drug abuse patient.[facility] HospitalIn the event this information is protected by the Federal Confidentiality of Alcohol and Drug Abuse Patient Records regulations: The Federal rules restrict any use of the information to criminally investigate or prosecute any alcohol or drug abuse patient.[facility] HospitalIn the event this information is protected by the Federal Confidentiality of Alcohol and Drug Abuse Patient Records regulations: The Federal rules restrict any use of the information to criminally investigate or prosecute any alcohol or drug abuse patient.[facility] HospitalIn the event this information is protected by the Federal Confidentiality of Alcohol and Drug Abuse Patient Records regulations: The Federal rules restrict any use of the information to criminally investigate or prosecute any alcohol or drug abuse patient.[facility] HospitalIn the event this information is protected by the Federal Confidentiality of Alcohol and Drug Abuse Patient Records regulations: The Federal rules restrict any use of the information to criminally investigate or prosecute any alcohol or drug abuse patient.[facility] HospitalIn the event this information is protected by the Federal Confidentiality of Alcohol and Drug Abuse Patient Records regulations: The Federal rules restrict any use of the information to criminally investigate or prosecute any alcohol or drug abuse patient.[facility] HospitalIn the event this information is protected by the Federal Confidentiality of Alcohol and Drug Abuse Patient Records regulations: The Federal rules restrict any use of the information to criminally investigate or prosecute any alcohol or drug abuse patient.[facility] HospitalIn the event this information is protected by the Federal Confidentiality of Alcohol and Drug Abuse Patient Records regulations: The Federal rules restrict any use of the information to criminally investigate or prosecute any alcohol or drug abuse patient.[facility] HospitalIn the event this information is protected by the Federal Confidentiality of Alcohol and Drug Abuse Patient Records regulations: The Federal rules restrict any use of the information to criminally investigate or prosecute any alcohol or drug abuse patient.[facility] HospitalIn the event this information is protected by the Federal Confidentiality of Alcohol and Drug Abuse Patient Records regulations: The Federal rules restrict any use of the information to criminally investigate or prosecute any alcohol or drug abuse patient.[facility] HospitalIn the event this information is protected by the Federal Confidentiality of Alcohol and Drug Abuse Patient Records regulations: The Federal rules restrict any use of the information to criminally investigate or prosecute any alcohol or drug abuse patient.[facility] HospitalIn the event this information is protected by the Federal Confidentiality of Alcohol and Drug Abuse Patient Records regulations: The Federal rules restrict any use of the information to criminally investigate or prosecute any alcohol or drug abuse patient.[facility] HospitalIn the event this information is protected by the Federal Confidentiality of Alcohol and Drug Abuse Patient Records regulations: The Federal rules restrict any use of the information to criminally investigate or prosecute any alcohol or drug abuse patient.[facility] HospitalIn the event this information is protected by the Federal Confidentiality of Alcohol and Drug Abuse Patient Records regulations: The Federal rules restrict any use of the information to criminally investigate or prosecute any alcohol or drug abuse patient.[facility] HospitalIn the event this information is protected by the Federal Confidentiality of Alcohol and Drug Abuse Patient Records regulations: The Federal rules restrict any use of the information to criminally investigate or prosecute any alcohol or drug abuse patient.[facility] HospitalIn the event this information is protected by the Federal Confidentiality of Alcohol and Drug Abuse Patient Records regulations: The Federal rules restrict any use of the information to criminally investigate or prosecute any alcohol or drug abuse patient.[facility] HospitalIn the event this information is protected by the Federal Confidentiality of Alcohol and Drug Abuse Patient Records regulations: The Federal rules restrict any use of the information to criminally investigate or prosecute any alcohol or drug abuse patient.[facility] HospitalIn the event this information is protected by the Federal Confidentiality of Alcohol and Drug Abuse Patient Records regulations: The Federal rules restrict any use of the information to criminally investigate or prosecute any alcohol or drug abuse patient.[facility] HospitalIn the event this information is protected by the Federal Confidentiality of Alcohol and Drug Abuse Patient Records regulations: The Federal rules restrict any use of the information to criminally investigate or prosecute any alcohol or drug abuse patient.[facility] Care Teams (unrecognized sec tion and content) Presser Hand Relationship Specialty Start Date End Date Raj Ocampo MD [address] [place] [address] PCP - General Internal Medicine 01/21/19 [place] [address] [place] [address] Consulting Internal Medicine 08/30/20 Padmini Lindsay, RN Registered Nurse 08/30/20 Presser Hand Relationship Specialty Start Date End Date Raj Ocampo MD [address] [place] [address] PCP - General Internal Medicine 01/21/19 [place] [address] [place] [address] Consulting Internal Medicine 08/30/20 Padmini Lindsay, RN Registered Nurse 08/30/20 Presser Hand Relationship Specialty Start Date End Date Raj Ocampo MD [address] [place] [address] PCP - General Internal Medicine 01/21/19 [place] [address] [place] [address] Consulting Internal Medicine 08/30/20 Padmini Lindsay, RN Registered Nurse 08/30/20 Presser Hand Relationship Specialty Start Date End Date Raj Ocampo MD [address] [place] [address] PCP - General Internal Medicine 01/21/19 [place] [address] [place] [address] Consulting Internal Medicine 08/30/20 Padmini Lindsay, RN Registered Nurse 08/30/20 Presser Hand Relationship Specialty Start Date End Date Raj Ocampo MD [address] [place] [address] PCP - General Internal Medicine 01/21/19 [place] [address] [place] [address] Consulting Internal Medicine 08/30/20 Padmini Lindsay, RN Registered Nurse 08/30/20 Presser Hand Relationship Specialty Start Date End Date Raj Ocampo MD [address] [place], [place] [address] PCP - General Internal Medicine 01/21/19 [place] [address] [place] [address] Consulting Internal Medicine 08/30/20 Padmini Lindsay, RN Registered Nurse 08/30/20 Presser Hand Relationship Specialty Start Date End Date Rosa Andres, SHIP CEILER [address] [place] [address] Customer Support Advisor Psychiatry 11/17/19 Mariama Contreras, HOG CUTTER [address] [place] [address] Customer Support Advisor Social Work 11/17/19 [place] [address] [place] [address] Mental Health/Behavioral Medicine Psychology 02/12/20 Presser Hand Relationship Specialty Start Date End Date Raj Ocampo MD [address] [place], [place] [id number] PCP - General Internal Medicine 01/21/19 [place] [address] [place] [address] Consulting Internal Medicine 08/30/20 Padmini Lindsay, RN Registered Nurse 08/30/20 Presser Hand Relationship Specialty Start Date End Date Raj Ocampo MD [address] [place], [place] [id number] PCP - General Internal Medicine 01/21/19 [place] [address] [place] [address] Consulting Internal Medicine 08/30/20 Padmini Lindsay, RN Registered Nurse 08/30/20 Presser Hand Relationship Specialty Start Date End Date Raj Ocampo MD [address] [place] [address] PCP - General Internal Medicine 01/21/19 [place] [address] [place] [address] Consulting Internal Medicine 08/30/20 Padmini Lindsay, RN Registered Nurse 08/30/20 Presser Hand Relationship Specialty Start Date End Date Raj Ocampo MD [address] [place] [address] PCP - General Internal Medicine 01/21/19 [place] [address] [place] [address] Consulting Internal Medicine 08/30/20 Padmini Lindsay, KENAN Registered Nurse 08/30/20 Presser Hand Relationship Specialty Start Date End Date Raj Ocampo MD [address] [place] [address] PCP - General Internal Medicine 01/21/19 [place] [address] [place] [address] Consulting Internal Medicine 08/30/20 Padmini Lindsay, KENAN Registered Nurse 08/30/20 Presser Hand Relationship Specialty Start Date End Date Raj Ocampo MD [address] [place] [address] PCP - General Internal Medicine 01/21/19 [place] [address] [place] [address] Consulting Internal Medicine 08/30/20 Padmini Lindsay, RN Registered Nurse 08/30/20 Presser Hand Relationship Specialty Start Date End Date Raj Ocampo MD [address] [place] [address] PCP - General Internal Medicine 01/21/19 [place] [address] [place] [address] Consulting Internal Medicine 08/30/20 Padmini Lindsay, RN Registered Nurse 08/30/20 Presser Hand Relationship Specialty Start Date End Date Raj Ocampo MD [address] [place] [address] PCP - General Internal Medicine 01/21/19 [place] [address] [place] [address] Consulting Internal Medicine 08/30/20 Padmini Lindsay, RN Registered Nurse 08/30/20 Presser Hand Relationship Specialty Start Date End Date Raj Ocampo MD [address] [place] [address] PCP - General Internal Medicine 01/21/19 [place] [address] [place] [address] Consulting Internal Medicine 08/30/20 Padmini Lindsay, RN Registered Nurse 08/30/20 Team Status: Active Member Role Status Dates Dr. Rao [place] MD Family Provider Active Dr. Sally Gandara Primary Care Provider Active Team Status: Inactive Member Role Status Dates Dr. Raj Ocampo MD Primary Care Provider Active Dr. Clayton Hein , Attending Provider, Emergency Provider Active Team Status: Inactive Member Role Status Dates Dr. Raj Ocampo MD Primary Care Provider Active Dr. Nain Price DO Attending Provider, Emergency Pr ovider Active Team Status: Inactive Member Role Status Dates Dr. Raj Ocampo MD Primary Care Provider Active Dr. Ely Moreno MD Attending Provider, Emergency Provider Active Team Status: Inactive Member Role Status Dates Dr. Sally Gandara Primary Care Provider Active Dr. Chris Turner MD Emergency Provider Active Presser Hand Relationship Specialty Start Date End Date Rosa Andres, SHIP CEILER [address] [place] [address] Customer Support Advisor Psychiatry 11/17/19 Mariama Contreras, HOG CUTTER [address] [place] [address] Customer Support Advisor Social Work 11/17/19 [place] [address] [place] [address] Mental Health/Behavioral Medicine Psychology 02/12/20 Presser Hand Relationship Specialty Start Date End Date Raj Ocampo MD [address] [place] [address] PCP - General Internal Medicine 01/21/19 [place] [address] [place] [address] Consulting Internal Medicine 08/30/20 Padmini Lindsay, RN Registered Nurse 08/30/20 Presser Hand Relationship Specialty Start Date End Date Raj Ocampo MD [address] [place], [place] [address] PCP - General Internal Medicine 01/21/19 [place] [address] [place] [address] Consulting Internal Medicine 08/30/20 Padmini Lindsay, RN Registered Nurse 08/30/20 Presser Hand Relationship Specialty Start Date End Date Raj Ocampo MD [address] [place], [place] [id number] PCP - General Internal Medicine 01/21/19 [place] [address] [place] [address] Consulting Internal Medicine 08/30/20 Padmini Lindsay, KENAN Registered Nurse 08/30/20 Miranda James NP [address] [place] [address] [facility] 03/29/22 Team Status: Inactive Member Role Status Dates Dr. Sally Gandara Primary Care Provider Active Dr. Chris Turner MD Attending Provider, Emergency Provider Active Team Status: Inactive Member Role Status Dates Dr. Sally Gandara Primary Care Provider Active Dr. Michael Sweeney DO Emergency Provider Active Presser Hand Relationship Specialty Start Date End Date Raj Ocampo MD [address] [place] [address] PCP - General Internal Medicine 01/21/19 [place] [address] [place] [address] Consulting Internal Medicine 08/30/20 Padmini Lindsay RN Registered Nurse 08/30/20 Miranda James NP [address] [place] [address] [facility] 03/29/22 Team Status: Inactive Member Role Status Dates Dr. Sally Gandara Primary Care Provider Active Dr. Ariel Brandt MD Emergency Provider Active Presser Hand Relationship Specialty Start Date End Date Raj Ocampo MD [address] [place] [address] PCP - General Internal Medicine 01/21/19 [place] [address] [place] [address] Consulting Internal Medicine 08/30/20 Padmini Lindsay RN Registered Nurse 08/30/20 Miranda James NP [address] [place] [address] Family Medicine 03/29/22 Presser Hand Relationship Specialty Start Date End Date Raj Ocampo MD [address] [place] [address] PCP - General Internal Medicine 01/21/19 [place] [address] [place] [address] Consulting Internal Medicine 08/30/20 Padmini Lindsay, KENAN Registered Nurse 08/30/20 Miranda James NP [address] [place] [address] Family [facility] 03/29/22 Presser Hand Relationship Specialty Start Date End Date Raj Ocampo MD [address] [place] [address] PCP - General Internal Medicine 01/21/19 Silvio Lira MD [address] [place] [address] Consulting Internal Medicine 08/30/20 Padmini Lindsay, RN Registered Nurse 08/30/20 Miranda James NP [address] [place] [address] [facility] 03/29/22 Team Status: Inactive Member Role Status Dates Dr. Sally Gandara Primary Care Provider Active Dr. Michael Sweeney DO Attending Provider, Emergency Jez osborne Active Team Status: Inactive Member Role Status Dates Dr. Sally Gandara Primary Care Provider Active Dr. Ariel Brandt MD Attending Provider, Emergency Provi magaly Active Team Status: Inactive Member Role Status Dates Dr. Sally Ganadra Primary Care Provider Active Dr. Stephane Zaidi DO Emergency Provider Active Presser Hand Relationship Specialty Start Date End Date Raj Ocampo MD [address] [place] [address] PCP - General Internal Medicine 01/21/19 Silvio Lira MD [address] [place] [address] Consulting Internal Medicine 08/30/20 Padmini Lindsay, RN Registered Nurse 08/30/20 Miranda James NP [address] [place] [address] Family Medicine 03/29/22 Presser Hand Relationship Specialty Start Date End Date Raj Ocampo MD [address] [place] [address] PCP - General Internal Medicine 01/21/19 Silvio Lira MD [address] [place] [address] Consulting Internal Medicine 08/30/20 Padmini Lindsay RN Registered Nurse 08/30/20 Miranda James NP [address] [place] [address] Family Medicine 03/29/22 Presser Hand Relationship Specialty Start Date End Date Raj Ocampo MD [address] [place] [address] PCP - General Internal Medicine 01/21/19 Silvio Lira MD [address] [place] [address] Consulting Internal Medicine 08/30/20 Padmini Lindsay RN Registered Nurse 08/30/20 Miranda James NP Family Medicine 03/29/22 Presser Hand Relationship Specialty [place] [address] [place] [address] PCP - General Internal Medicine 08/31/22 Silvio Lira MD Consulting Internal Medicine 08/30/20 Padmini Lindsay, RN Registered Nurse 08/30/20 Miranda James NP Family Medicine 03/29/22 Presser Hand Relationship Specialty [place] [address] [place] [address] PCP - General Internal Medicine 08/31/22 Silvio Lira MD Consulting Internal Medicine 08/30/20 Padmini Lindsay, KENAN Registered Nurse 08/30/20 Miranda James NP Family Medicine 03/29/22 Presser Hand Relationship Specialty [place] [address] [place] [address] PCP - General Internal Medicine 08/31/22 Silvio Lira MD Consulting Internal Medicine 08/30/20 Padmini Lindsay, RN Registered Nurse 08/30/20 Miranda James NP Family Medicine 03/29/22 Presser Hand Relationship Specialty [place] [address] [place] [address] PCP - General Internal Medicine 08/31/22 Silvio Lira MD Consulting Internal Medicine 08/30/20 Padmini Lindsay, RN Registered Nurse 08/30/20 Miranda James NP Family Medicine 03/29/22 Presser Hand Relationship Specialty [place] [address] [place] [address] PCP - General Internal Medicine 08/31/22 Silvio Liar MD Consulting Internal Medicine 08/30/20 Padmini Avendano, RN Registered Nurse 08/30/20 Miranda James NP Family Medicine 03/29/22 Presser Hand Relationship Specialty [place] [address] [place], [place] [id number] PCP - General Internal Medicine 08/31/22 Silvio Lira MD Consulting Internal Medicine 08/30/20 Padmini Avendano, RN Registered Nurse 08/30/20 Mirnada James NP Family Medicine 03/29/22 Presser Hand Relationship Specialty [place] [address] [place] [address] PCP - General Internal Medicine 08/31/22 Silvio Lira MD Consulting Internal Medicine 08/30/20 Padmini Avendano, RN Registered Nurse 08/30/20 Miranda James NP Family Medicine 03/29/22 Presser Hand Relationship Specialty [place] [address] [place] [address] PCP - General Internal Medicine 08/31/22 Silvio Lira MD Consulting Internal Medicine 08/30/20 Padmini Avendano, RN Registered Nurse 08/30/20 Miranda James NP Family Medicine 03/29/22 Presser Hand Relationship Specialty [place] [address] [place] [address] PCP - General Internal Medicine 08/31/22 Silvio Lira MD Consulting Internal Medicine 08/30/20 Padmini Avendano, RN Registered Nurse 08/30/20 Miranda James NP Family Medicine 03/29/22 Presser Hand Relationship Specialty Start Date End Date Silvio Lira [place] [id number] [place] [address] PCP - General Internal Medicine 08/31/22 Silvio Lira MD Consulting Internal Medicine 08/30/20 Padmini Avendano, RN Registered Nurse 08/30/20 Miranda James NP Family Medicine 03/29/22 Presser Hand Relationship Specialty Start Date End Date Silvio Lira MD [id number] [place], [place] [id number] PCP - General Internal Medicine 08/31/22 Silvio Lira MD Consulting Internal Medicine 08/30/20 Padmiin Avendano, RN Registered Nurse 08/30/20 Miranda James NP Family Medicine 03/29/22 Presser Hand Relationship Specialty Start Date End Date Silvio [place] [id number] [place] [address] PCP - General Internal Medicine 08/31/22 Silvio Lira MD Consulting Internal Medicine 08/30/20 Padmini Avendano, RN Registered Nurse 08/30/20 Miranda James NP Family Medicine 03/29/22 Presser Hand Relationship Specialty [place] [address] [place] [address] PCP - General Internal Medicine 08/31/22 Silvio Lira MD Consulting Internal Medicine 08/30/20 Padmini Avendano, RN Registered Nurse 08/30/20 Miranda James NP Family Medicine 03/29/22 Presser Hand Relationship Specialty Start Date End Date Silvio [place] [id number] [place] [address] PCP - General Internal Medicine 08/31/22 Silvio Lira MD Consulting Internal Medicine 08/30/20 Padmini Avendano, RN Registered Nurse 08/30/20 Miranda James NP Family Medicine 03/29/22 Presser Hand Relationship Specialty [place] [address] [place] [address] PCP - General Internal Medicine 08/31/22 Silvio Lira MD Consulting Internal Medicine 08/30/20 Padmini Avendano, RN Registered Nurse 08/30/20 Miranda James NP Family Medicine 03/29/22 Presser Hand Relationship Specialty [place] [address] [place] [address] PCP - General Internal Medicine 08/31/22 Silvio Lira MD Consulting Internal Medicine 08/30/20 Padmini Avendano, RN Registered Nurse 08/30/20 Miranda James NP Family Medicine 03/29/22 Presser Hand Relationship Specialty [place] [address] [place] [address] PCP - General Internal Medicine 08/31/22 Silvio Lira MD Consulting Internal Medicine 08/30/20 Padmini Avendano, RN Registered Nurse 08/30/20 Miranda James NP Family Medicine 03/29/22 Presser Hand Relationship Specialty [place] [address] [place] [address] PCP - General Internal Medicine 08/31/22 Silvio Lira MD Consulting Internal Medicine 08/30/20 Padmini Avendano, RN Registered Nurse 08/30/20 Miranda James NP Family Medicine 03/29/22 Presser Hand Relationship Specialty [place] [address] [place] [address] PCP - General Internal Medicine 08/31/22 Silvio Lira MD Consulting Internal Medicine 08/30/20 Padmini Avendano, RN Registered Nurse 08/30/20 Miranda James NP Family Medicine 03/29/22 Presser Hand Relationship Specialty [place] [address] [place] [address] PCP - General Internal Medicine 08/31/22 Silvio Lira MD Consulting Internal Medicine 08/30/20 Padmini Avendano, RN Registered Nurse 08/30/20 Miranda James NP Family Medicine 03/29/22 Presser Hand Relationship Specialty [place] [address] [place] [address] PCP - General Internal Medicine 08/31/22 Silvio Lira MD Consulting Internal Medicine 08/30/20 Padmini Avendano, RN Registered Nurse 08/30/20 Miranda James NP Family Medicine 03/29/22 Presser Hand Relationship Specialty [place] [address] [place] [address] PCP - General Internal Medicine 08/31/22 Silvio Lira MD Consulting Internal Medicine 08/30/20 Padmini Avendano, RN Registered Nurse 08/30/20 Miranda James NP Family Medicine 03/29/22 Presser Hand Relationship Specialty Start Date End Date Silvio Lira MD [address] [place] [address] PCP - General Internal Medicine 08/31/22 Silvio Lira MD Consulting Internal Medicine 08/30/20 Padmini Avendano, RN Registered Nurse 08/30/20 Miranda James NP Family Medicine 03/29/22 Presser Hand Relationship Specialty Start Date End Date Silvio [place] [id number] [place] [address] PCP - General Internal Medicine 08/31/22 Silvio Lira MD Consulting Internal Medicine 08/30/20 Padmini Avendano, RN Registered Nurse 08/30/20 Miranda James NP Family Medicine 03/29/22 Presser Hand Relationship Specialty Start Date End Date Silvio Lira MD [address] [place] [address] PCP - General Internal Medicine 08/31/22 Silvio Lira MD Consulting Internal Medicine 08/30/20 Padmini Avednano, RN Registered Nurse 08/30/20 Miranda James NP Family Medicine 03/29/22 Presser Hand Relationship Specialty Start Date End Date Silvio [place]ira [place] [id number] [place] [address] PCP - General Internal Medicine 08/31/22 Silvio Lira MD Consulting Internal Medicine 08/30/20 Padmini Avendano, RN Registered Nurse 08/30/20 Miranda James NP Family Medicine 03/29/22 Presser Hand Relationship Specialty Start Date End Date Silvio [place]ira [place] [id number] [place] [address] PCP - General Internal Medicine 08/31/22 Silvio Lira MD Consulting Internal Medicine 08/30/20 Padmini Avendano, RN Registered Nurse 08/30/20 Miranda James NP Family Medicine 03/29/22 Presser Hand Relationship Specialty Start Date End Date Silvio [place] [id number] [place] [address] PCP - General Internal Medicine 08/31/22 Silvio Lira MD Consulting Internal Medicine 08/30/20 Padmini Avendano, RN Registered Nurse 08/30/20 Miranda James NP Family Medicine 03/29/22 Presser Hand Relationship Specialty [place] [address] [place] [address] PCP - General Internal Medicine 08/31/22 Silvio Lira MD Consulting Internal Medicine 08/30/20 Miranda James NP Family Medicine 03/29/22 Presser Hand Relationship Specialty Start Date End Date Rosa Andres LISW [address] [place] [address] [place] [address] Customer Support Advisor Psychiatry 11/17/19 Mariama Contreras, HOG CUTTER [address] [place] [address] Customer Support Advisor Social Work 11/17/19 Delmy Verdugo, PhD [address] [place] [address] Mental Health/Behavioral Medicine Psychology 02/12/20 Presser Hand Relationship Specialty [place] [address] [place] [address] PCP - General Internal Medicine 08/31/22 Silvio Lira MD Consulting Internal Medicine 08/30/20 Miranda James NP Family Medicine 03/29/22 Presser Hand Relationship Specialty [place] [address] [place] [address] PCP - General Internal Medicine 08/31/22 Silvio Lira MD Consulting Internal Medicine 08/30/20 Miranda James NP Family Medicine 03/29/22 Presser Hand Relationship Specialty [place] [address] [place] [address] PCP - General Internal Medicine 08/31/22 Silvio Lira MD Consulting Internal Medicine 08/30/20 Miranda James NP [facility] Medicine 03/29/22 [place] [address] [place] [address] Emergency Dept Tech Internal Medicine 01/20/24 Levon [place]ía [place] [address] [place] [id number] Emergency Dept Tech Internal Medicine 01/20/24 Veronica Clifford DO [id number] [place] [id number] Emergency Dept Tech Internal Medicine 01/20/24 Everardo Ray PA-C 52[address] [place] [address] [facility] Internal Medicine 01/20/24 Tono Uriarte MD [address] [place] [address] [facility] Internal Medicine 01/20/24 Sofia Guerrero MD [address] [place] [address] [facility] Internal Medicine 01/20/24 Nelson Lopez MD [address] [place] [address] [facility] Internal Medicine 01/20/24 Jose Arias MD [id number] [place] [address] [facility] Internal Medicine 01/20/24 Jennifer Kovacs MD [address] [place] [address] [facility] Internal Medicine 01/20/24 Dhiraj Conn MD [address] [place] [address] [facility] Internal Medicine 01/20/24 Gorge Aviles MD [id number], [place] [address] [facility] Internal Medicine 01/20/24 Slick Vasques [place] [id number] [place] [address] Emergency Dept Tech Internal Medicine 01/20/24 Kasandra Rowland MD [address] [place] [address] [facility] Dept [facility] Internal Medicine 01/20/24 Marcela Julio MD [address] [place] [address] [facility] Dept [facility] Internal Medicine 01/20/24 Ananda Wall DO [address] [place] [address] [facility] Internal Medicine 01/20/24 Anahi Jeffery MD [address] [place] [address] [facility] Dept [facility] Internal Medicine 01/20/24 Moni Tate MD [address] [place] [address] [facility] Internal Medicine 01/20/24 Ellen Nolasco MD [address] [place] [address] [facility] Internal Medicine 01/20/24 Joe Duron DO [address] [place] [address] [facility] Internal Medicine 01/20/24 Timothy Carrizales MD [address] [place] [address] [facility] Internal Medicine 01/20/24 Presser Hand Relationship Specialty [place] [address] [place] [address] PCP - General Internal Medicine 08/31/22 Silvio Lira MD Consulting Internal Medicine 08/30/20 Miranda James NP Family Medicine 03/29/22 [place] [address] [place] [address] Emergency Dept Tech Internal Medicine 01/20/24 Levon [place] [address] [place] [address] Emergency Dept Tech Internal Medicine 01/20/24 Veronica Clifford [place] [id number] [place] [address] Emergency Dept Tech Internal Medicine 01/20/24 Everardo Ray PA-C 66176 [place] [address] Emergency Dept Tech Internal Medicine 01/20/24 Tono Uriarte MD [id number] [place] [address] Emergency Dept Tech Internal Medicine 01/20/24 [place] [address] [place], [place] [id number] Emergency Dept Tech Internal Medicine 01/20/24 [place] [address] [place] [address] Emergency Dept Tech Internal Medicine 01/20/24 Jose Arias MD [address] [place] [address] [facility] Internal Medicine 01/20/24 Jennifer Kovacs MD [address] [place] [address] [facility] Internal Medicine 01/20/24 Dhiraj Conn MD [address] [place] [address] [facility] Internal [facility] 01/20/24 Gorge Aviles MD [id number], [place] [address] [facility] Internal Medicine 01/20/24 [place] [address] [place] [address] [facility] Internal Medicine 01/20/24 Kasandra Rowland MD [address] [place] [address] [facility] Internal Medicine 01/20/24 Marcela Julio MD [address] [place] [address] [facility] Internal Medicine 01/20/24 Ananda Wall DO [address] [place] [address] [facility] Internal Medicine 01/20/24 Anahi Jeffery MD [address] [place] [address] [facility] Dept [facility] Internal Medicine 01/20/24 Moni Tate MD [id number] [place] [address] Emergency Dept [facility] Internal Medicine 01/20/24 Ellen Nolasco MD [id number] [place] [address] Emergency Dept [facility] Internal Medicine 01/20/24 Joe Duron DO [address] [place] [address] [facility] Internal Medicine 01/20/24 Timothy Carrizales MD [id number] [place] [address] [facility] Internal Medicine 01/20/24 Presser Hand Relationship Specialty [place] [address] [place] [id number] PCP - General Internal Medicine 08/31/22 Silvio Lira MD Consulting Internal Medicine 08/30/20 Miranda James NP Family Medicine 03/29/22 Esvin Santamaria MD [address] [place] [address] Emergency Dept [facility] Internal Medicine 01/20/24 [place] [address] [place] [address] Emergency Dept [facility] Internal Medicine 01/20/24 Veronica Clifford DO [id number], [place] [address] Emergency Dept Tech Internal Medicine 01/20/24 Everardo Ray PA-C 62619 [place] [id number] Emergency Dept Tech Internal Medicine 01/20/24 Tono Uriarte MD [id number] [place] [address] [facility] Internal Medicine 01/20/24 Sofia Guerrero MD [address] [place] [address] [facility] Internal Medicine 01/20/24 Nelson Lopez MD [address] [place] [address] [facility] Internal Medicine 01/20/24 Jose Arias MD [address] [place] [address] [facility] Internal Medicine 01/20/24 Jennifer Kovacs MD [address] [place] [address] [facility] Internal Medicine 01/20/24 Dhiraj Conn MD [address] [place] [address] [facility] Internal Medicine 01/20/24 Gorge Aviles MD [id number] [place] [address] Emergency Dept Tech Internal Medicine 01/20/24 [place] [address] [place] [address] Emergency Dept Tech Internal Medicine 01/20/24 Kasandra Rowland MD [address] [place] [address] Emergency Dept [facility] Internal Medicine 01/20/24 Marcela Julio MD [address] [place] [address] Emergency Dept [facility] Internal Medicine 01/20/24 Ananda Wall DO [address] [place] [address] Emergency Dept Tech Internal Medicine 01/20/24 Anahi Jeffery MD [address] [place] [address] Emergency Dept [facility] Internal Medicine 01/20/24 Moni Tate MD [address] [place] [address] Emergency Dept [facility] Internal Medicine 01/20/24 Ellen Nolasco MD [address] [place] [address] Emergency Dept [facility] Internal Medicine 01/20/24 Joe Duron DO [address] [place] [address] Emergency Dept Tech Internal Medicine 01/20/24 [place] [address] [place] [id number] [facility] Internal Medicine 01/20/24 Presser Hand Relationship Specialty [place] [address] [place] [address] PCP - General Internal Medicine 08/31/22 Silvio Lira MD Consulting Internal Medicine 08/30/20 Miranda James NP Family Medicine 03/29/22 [place] [address] [place] [address] [facility] Internal Medicine 01/20/24 Levon [place] [address] [place] [address] [facility] Internal Medicine 01/20/24 Veronica Clifford DO [id number] [place] [address] [facility] Internal Medicine 01/20/24 Everardo Ray PA-C 55444 [place] [address] [facility] Internal Medicine 01/20/24 [place] [address] [place] [address] [facility] Internal Medicine 01/20/24 Sofia Guerrero MD [address] [place] [address] Emergency Dept Tech Internal Medicine 01/20/24 Nelson Lopez MD [address] [place] [address] Emergency Dept Tech Internal Medicine 01/20/24 Jose Arias MD [address] [place] [address] Emergency Dept Tech Internal Medicine 01/20/24 Jennifer Kovacs MD [address] [place] [address] Emergency Dept Tech Internal Medicine 01/20/24 Dhiraj Conn MD [address] [place] [address] [facility] Internal Medicine 01/20/24 Gorge Aviles MD [id number] [place] [address] [facility] Internal Medicine 01/20/24 [place] [address] [place] [address] Emergency Dept Tech Internal Medicine 01/20/24 Kasandra Rowland MD [address] [place] [address] [facility] Internal Medicine 01/20/24 Marcela Julio MD [address] [place] [address] Emergency Dept [facility] Internal Medicine 01/20/24 Ananda Wall DO [address] [place] [address] Emergency Dept [facility] Internal Medicine 01/20/24 Anahi Jeffery MD [address] [place] [address] Emergency Dept [facility] Internal Medicine 01/20/24 Moni Tate MD [address] [place] [address] [facility] Dept [facility] Internal Medicine 01/20/24 Ellen Nolasco MD [address] [place] [address] Emergency Dept [facility] Internal Medicine 01/20/24 Joe Duron DO [address] [place] [address] Emergency Dept Tech Internal Medicine 01/20/24 Timothy Carrizales MD [address] [place] [address] [facility] Internal Medicine 01/20/24 Presser Hand Relationship Specialty [place] [address] [place] [address] PCP - General Internal Medicine 08/31/22 Silvio Lira MD Consulting Internal Medicine 08/30/20 Miranda James NP Family Medicine 03/29/22 [place] [address] [place] [address] Emergency Dept Tech Internal Medicine 01/20/24 Lev[place] [address] [place] [address] Emergency Dept Tech Internal Medicine 01/20/24 Veronica Clifford DO [id number] [place] [id number] Emergency Dept Tech Internal Medicine 01/20/24 Everardo Ray PA-C 842[address] [place] [id number] Emergency Dept Tech Internal Medicine 01/20/24 Tono Uriarte MD [address] [place] [address] Emergency Dept Tech Internal Medicine 01/20/24 Sofia Guerrero MD [address] [place] [address] Emergency Dept Tech Internal Medicine 01/20/24 Nelson Lopez MD [address] [place] [address] Emergency Dept Tech Internal Medicine 01/20/24 Jose Arias MD [id number] [place] [address] Emergency Dept Tech Internal Medicine 01/20/24 Jennfier Kovacs MD [id number] [place] [address] Emergency Dept Tech Internal Medicine 01/20/24 [place] [address] [place] [address] Emergency Dept Tech Internal Medicine 01/20/24 Gorge Aviles MD [id number] [place] [address] Emergency Dept Tech Internal Medicine 01/20/24 [place] [address] [place] [address] Emergency Dept Tech Internal Medicine 01/20/24 Kasandra Rowland MD [address] [place] [address] Emergency Dept Tech Internal Medicine 01/20/24 Marcela Julio MD [address] [place] [address] Emergency Dept Tech Internal Medicine 01/20/24 Ananda Wall DO [address] [place] [address] Emergency Dept Tech Internal Medicine 01/20/24 Anahi Jeffery MD [address] [place] [address] Emergency Dept Tech Internal Medicine 01/20/24 Moni Tate MD [address] [place] [address] [facility] Internal Medicine 01/20/24 Ellen Nolasco MD [address] [place] [address] Emergency Dept Tech Internal Medicine 01/20/24 [place] [address] [place] [address] [facility] Internal Medicine 01/20/24 [place] [address] [place] [address] [facility] Internal Medicine 01/20/24 Presser Hand Relationship Specialty [place] [address] [place] [address] PCP - General Internal Medicine 08/31/22 Silvio Lira MD Consulting Internal Medicine 08/30/20 Miranda James NP Family Medicine 03/29/22 [place] [address] [place] [address] [facility] Internal Medicine 01/20/24 Levon [place]ía [place] [address] [place] [address] [facility] Internal Medicine 01/20/24 Veronica Clifford DO [id number] [place] [id number] [facility] Internal Medicine 01/20/24 Everardo Ray PA-C 73821 [place] [address] Emergency Dept Tech Internal Medicine 01/20/24 [place] [address] [place] [address] [facility] Internal Medicine 01/20/24 [place] [address] [place] [address] [facility] Internal Medicine 01/20/24 Nelson Lopez MD [id number] [place] [address] [facility] Internal Medicine 01/20/24 Jose Arias MD [address] [place] [address] [facility] Internal Medicine 01/20/24 Jennifer Kovacs MD [address] [place] [address] [facility] Internal Medicine 01/20/24 Dhiraj Conn MD [address] [place] [address] [facility] Internal Medicine 01/20/24 Gorge Aviles MD [id number] [place] [address] [facility] Internal Medicine 01/20/24 [place] [address] [place] [id number] [facility] Internal Medicine 01/20/24 Kasandra Rowland MD [id number] [place], [place] [address] Emergency Dept Tech Internal Medicine 01/20/24 Marcela Julio MD [address] [place] [address] Emergency Dept Tech Internal Medicine 01/20/24 Ananda Wall DO 23 [place] [address] Emergency Dept Tech Internal Medicine 01/20/24 Anahi Jeffery MD [address] [place] [address] Emergency Dept Tech Internal Medicine 01/20/24 Moni Tate MD [address] [place] [address] [facility] Internal Medicine 01/20/24 Ellen Nolasco MD [address] [place] [address] [facility] Internal Medicine 01/20/24 Joe Duron DO [address] [place] [address] Emergency Dept Tech Internal Medicine 01/20/24 Timothy Carrizales MD [address] [place] [address] [facility] Internal Medicine 01/20/24 Presser Hand Relationship Specialty [place] [id number] [place] [id number] PCP - General Internal Medicine 08/31/22 Silvio Lira MD Consulting Internal Medicine 08/30/20 Miranda James NP Family Medicine 03/29/22 Esvin Santamaria MD [id number] [place] [address] [facility] Internal Medicine 01/20/24 Levon García MD [address] [place] [address] [facility] Internal Medicine 01/20/24 Veronica Clifford DO [id number] [place] [address] [facility] Internal Medicine 01/20/24 Everardo Ray PA-C [address] [place] [id number] [facility] Internal Medicine 01/20/24 Tono Uriarte MD [address] [place] [address] [facility] Internal Medicine 01/20/24 Sofia Guerrero MD [address] [place] [address] [facility] Internal Medicine 01/20/24 Nelson Lopez MD [address] [place] [address] [facility] Internal Medicine 01/20/24 Jose Arias MD [address] [place], [place] [id number] Emergency Dept Tech Internal Medicine 01/20/24 Jennifer Kovacs MD [address] [place] [address] Emergency Dept Tech Internal Medicine 01/20/24 Dhiraj Conn MD [address] [place] [address] Emergency Dept Tech Internal Medicine 01/20/24 Gorge Aviles MD [id number] [place] [address] Emergency Dept Tech Internal Medicine 01/20/24 [place] [address] [place] [address] Emergency Dept Tech Internal Medicine 01/20/24 Kasandra Rowland MD [address] [place] [address] Emergency Dept Tech Internal Medicine 01/20/24 Marcela Julio MD [address] [place] [address] Emergency Dept Tech Internal Medicine 01/20/24 Ananda Wall DO [address] [place] [address] Emergency Dept Tech Internal Medicine 01/20/24 Anahi Jeffery MD [address] [place] [address] Emergency Dept Tech Internal Medicine 01/20/24 Moni Tate MD [address] [place] [address] Emergency Dept Tech Internal Medicine 01/20/24 Ellen Nolasco MD [address] [place] [address] Emergency Dept Tech Internal Medicine 01/20/24 Joe Duron DO [address] [place] [address] Emergency Dept Tech Internal Medicine 01/20/24 Timothy Carrizales MD [address] [place] [address] [facility] Internal Medicine 01/20/24 Presser Hand Relationship Specialty [place] [address] [place] [address] PCP - General Internal Medicine 08/31/22 Silvio Lira MD Consulting Internal Medicine 08/30/20 Miranda James NP Family Medicine 03/29/22 Esvin Santamaria MD [address] [place] [address] Emergency Dept Tech Internal Medicine 01/20/24 Levon García MD [address] [place] [address] Emergency Dept Tech Internal Medicine 01/20/24 Veronica Clifford DO [id number] [place] [address] Emergency Dept Tech Internal Medicine 01/20/24 Everardo Ray PA-C [address] [place] [id number] Emergency Dept Tech Internal Medicine 01/20/24 Tono Uriarte MD [id number] [place] [address] Emergency Dept Tech Internal Medicine 01/20/24 Sofia Guerrero MD [id number] [place] [address] Emergency Dept Tech Internal Medicine 01/20/24 Nelson Lopez MD [address] [place] [address] Emergency Dept Tech Internal Medicine 01/20/24 Jose Arias MD [address] [place] [address] Emergency Dept Tech Internal Medicine 01/20/24 Jennifer Kovacs MD [id number] [place] [address] Emergency Dept Tech Internal Medicine 01/20/24 Dhiraj Conn MD [id number] [place] [address] Emergency Dept Tech Internal Medicine 01/20/24 Gorge Aviles MD [id number] [place] [address] Emergency Dept Tech Internal Medicine 01/20/24 [place] [address] [place] [id number] Emergency Dept Tech Internal Medicine 01/20/24 Kasandra Rowland MD [address] [place] [address] Emergency Dept Tech Internal Medicine 01/20/24 Marcela Julio MD [address] [place] [address] Emergency Dept Tech Internal Medicine 01/20/24 Ananda Wall DO [address] [place] [address] Emergency Dept Tech Internal Medicine 01/20/24 Anahi Jeffery MD [address] [place] [address] Emergency Dept Tech Internal Medicine 01/20/24 Moni Tate MD [address] [place] [address] Emergency Dept Tech Internal Medicine 01/20/24 Ellen Nolasoc MD [address] [place] [address] Emergency Dept Tech Internal Medicine 01/20/24 Joe Duron DO [address] [place] [address] Emergency Dept Tech Internal Medicine 01/20/24 Timothy Carrizales MD [address] [place] [address] Emergency Dept Tech Internal Medicine 01/20/24 Presser Hand Relationship Specialty [place] [id number] [place] [id number] PCP - General Internal Medicine 08/31/22 Silvio Lira MD Consulting Internal Medicine 08/30/20 Miranda James NP Family Medicine 03/29/22 [place] [address] [place] [address] [facility] Internal Medicine 01/20/24 Lev[place] [address] [place] [address] [facility] Internal Medicine 01/20/24 Veronica Clifford DO [id number] [place] [address] [facility] Internal Medicine 01/20/24 Everardo Ray PA-C [address] [place] [phone] [facility] Internal Medicine 01/20/24 Tono Uriarte MD [address] [place] [address] [facility] Internal Medicine 01/20/24 [place] [address] [place] [address] [facility] Internal Medicine 01/20/24 Nelson Lopez MD [address] [place] [address] Emergency Dept Tech Internal Medicine 01/20/24 Jose Arias MD [address] [place] [address] Emergency Dept Tech Internal Medicine 01/20/24 Jennifer Kovacs MD [address] [place] [address] Emergency Dept Tech Internal Medicine 01/20/24 Dhiraj Conn MD [address] [place] [address] [facility] Internal Medicine 01/20/24 Gorge Aviles MD [id number] [place] [address] Emergency Dept Tech Internal Medicine 01/20/24 [place] [address] [place] [address] Emergency Dept Tech Internal Medicine 01/20/24 Kasandra Rowland MD [address] [place] [address] Emergency Dept Tech Internal Medicine 01/20/24 Marcela Julio MD [address] [place] [address] Emergency Dept Tech Internal Medicine 01/20/24 Ananda Wall DO [address] [place] [address] Emergency Dept Tech Internal Medicine 01/20/24 Anahi Jeffery MD [address] [place] [address] Emergency Dept Tech Internal Medicine 01/20/24 Moni Tate MD [address] [place] [address] [facility] Internal Medicine 01/20/24 Ellen Nolasco MD [address] [place] [address] [facility] Internal Medicine 01/20/24 Joe Duron DO [address] [place] [address] [facility] Internal Medicine 01/20/24 Timothy Carrizales MD [address] [place] [address] [facility] Internal Medicine 01/20/24 Presser Hand Relationship Specialty [place] [address] [place] [id number] PCP - General Internal Medicine 08/31/22 Silvio Lira MD Consulting Internal Medicine 08/30/20 Miranda James NP Family Medicine 03/29/22 Esvin Santamaria MD [address] [place] [address] Emergency Dept Tech Internal Medicine 01/20/24 Lev[place] [address] [place] [address] Emergency Dept Tech Internal Medicine 01/20/24 Veronica Clifford DO [id number] [place] [address] Emergency Dept Tech Internal Medicine 01/20/24 Everardo Ray PA-C [address] [place] [address] [facility] Internal Medicine 01/20/24 Tono Uriarte MD [id number] [place] [address] Emergency Dept Tech Internal Medicine 01/20/24 [place] [address] [place] [address] [facility] Internal Medicine 01/20/24 Nelson Lopez MD [id number] [place] [address] [facility] Internal Medicine 01/20/24 Jose Arias MD [address] [place] [address] [facility] Internal Medicine 01/20/24 Jennifer Kovacs MD [id number] [place] [address] [facility] Internal Medicine 01/20/24 Dhiraj Conn MD [id number] [place], [place] [address] Emergency Dept Tech Internal Medicine 01/20/24 Gorge Aviles MD 89P186 [place] [address] Emergency Dept Tech Internal Medicine 01/20/24 [place] [address] [place] [address] Emergency Dept Tech Internal Medicine 01/20/24 Kasandra Rowland MD [address] [place] [address] [facility] Internal Medicine 01/20/24 Marcela Julio MD [address] [place] [address] [facility] Internal Medicine 01/20/24 Ananda Wall DO [address] [place] [address] [facility] Internal Medicine 01/20/24 Anahi Jeffery MD [address] [place] [address] [facility] Internal Medicine 01/20/24 Moni Tate MD [address] [place] [address] [facility] Internal Medicine 01/20/24 Ellen Nolasco MD [address] [place] [address] [facility] Internal Medicine 01/20/24 Joe Duron DO [address] [place] [address] Emergency Dept Tech Internal Medicine 01/20/24 [place] [address] [place] [address] Emergency Dept Tech Internal Medicine 01/20/24 Presser Hand Relationship Specialty Start Date End Date Rosa Andres LISW [address] [place] [address] [place] [address] Customer Support Advisor Psychiatry 11/17/19 Mariama Contreras, HOG CUTTER [address] [place] [address] Customer Support Advisor Social Work 11/17/19 Delmy Verdugo, PhD [id number] [place] [id number] Mental Health/Behavioral Medicine Psychology 02/12/20 Presser Hand Relationship Specialty Start Date End Date Silvio Lira MD [address] [place], [place] [phone] PCP - General Internal Medicine 08/31/22 Silvio Lira MD Consulting Internal Medicine 08/30/20 Miranda James NP Family Medicine 03/29/22 Everardo Ray PA-C [address] [place], [place] [phone] Emergency Dept Tech Internal Medicine 01/20/24 Presser Hand Relationship Specialty Start [place] Sil[place]ira [place] [id number] [place] [address] PCP - General Internal Medicine 08/31/22 Silvio Lira MD Consulting Internal Medicine 08/30/20 Miranda James NP Family Medicine 03/29/22 Everardo Ray PA-C [address] [place] [address] Emergency Dept Tech Internal Medicine 01/20/24 Presser Hand Relationship Specialty Start Date End Date Silvio Lira MD [address] [place] [address] PCP - General Internal Medicine 08/31/22 Silvio Lira MD Consulting Internal Medicine 08/30/20 Miranda aJmes NP Family Medicine 03/29/22 Everardo Ray PA-C [address] [place] [address] Emergency Dept Tech Internal Medicine 01/20/24 Presser Hand Relationship Specialty Start Date End Date Silvio Lira MD [address] [place] [address] PCP - General Internal Medicine 08/31/22 Silvio Lira MD Consulting Internal Medicine 08/30/20 Miranda James NP Family Medicine 03/29/22 Everardo Ray PA-C [address] [place] [address] Emergency Dept Tech Internal Medicine 01/20/24 Goals (unrecognized section and content) Goals may be documented in a n alternate sectionGoals may be documented in an alternate sectionGoals may be documented in an alternate sectionGoals may be documented in an alternate sectionGoals may be documented in an alternate sectionGoals may be documented in an alternate sectionGoals may be documented in an alternate sectionGoals may be documented in an alternate sectionGoals may be documented in an alternate sectionGoals may be documented in an alternate sectionGoals may be documented in an alternate section FOR RECORDS PERTAINING TO PATIENTS WHO ARE OR HAVE BEEN ENROLLED IN A CHEMICAL DEPENDENCY/SUBSTANCEABUSE PROGRAM, SOME INFORMATION MAY BE OMITTED. This clinical summary was aggregated from multiple sources. Caution should be exercised in using it in the provision of clinical care. This summary normalizes information from multiple sources, and as a consequence, information in this document may materially change the coding, format and clinical context of patient data. In addition, data may be omitted in some cases. CLINICAL DECISIONS SHOULD BE BASED ON THE PRIMARY CLINICAL RECORDS. [facility]. provides no warranty or guarantee of the accuracy or completeness of information in this document.
--- NOTE | 2025-01-23 15:02 | CT_ITS ---
PROCEDURE: BRAIN/HEAD WITH CONTRAST 01/23/2025 REASON FOR EXAM: R/O DURAL VENOUS THROMBOSIS, FACIAL SWELLINGHEADAC TECHNIQUE: Procedure Code: CTBRW Modality: CT Procedure: BRAIN/HEAD WITH CONTRAST Coronal and Sagittal reconstruction series were provided. CONTRAST: Isovue 370 VOLUME: 75 mL One or more dose reduction techniques were used (e.g., Automated exposure control, adjustment of the mA and/or kV according to patient size, use of iterative reconstruction technique). RADIATION DOSE SUMMARY: CTDlvol: 45 mGy DLP: 1130 mGycm COMPARISON: October 02, 2023 FINDINGS: Acute findings: Dural venous sinuses appear patent. Jugular veins are patent. Brain: No hemorrhage or acute ischemia. No extra-axial fluid collection, midline shift or mass effect. Postcontrast images: No enhancing mass. The anterior cerebral arteries, middle cerebral arteries, posterior cerebral arteries are patent. origin left BI TESTER. Basilar artery and vertebral arteries are normal. CSF Spaces: No hydrocephalus. Sinuses/Mastoids: Clear Bones: No fracture CT/Brain/Head WITH Contrast IMPRESSION: No significant dural venous sinus thrombosis. No acute ischemia. Reading Location: [id number]
--- NOTE | 2025-01-23 15:05 | CT_ITS ---
PROCEDURE: ABDOMEN/PELVIS WITHOUT CONT 01/23/2025 REASON FOR EXAM: BILATERAL FLANK PAIN TECHNIQUE: Procedure Code: CTABDPEL Modality: CT Procedure: ABDOMEN/PELVIS WITHOUT CONT Noncontrast technique limits evaluation of the abdominal and pelvic viscera. Coronal and Sagittal reconstruction series were provided. One or more dose reduction techniques were used (e.g., Automated exposure control, adjustment of the mA and/or kV according to patient size, use of iterative reconstruction technique). RADIATION DOSE SUMMARY: CTDlvol: 8 mGy DLP: 470 mGycm COMPARISON: August 07, 2021, July 10, 2021 FINDINGS: Lung bases: Linear subsegmental atelectasis right middle lobe and inferior lingula. Liver: Small cyst right lobe liver is benign. Gallbladder: Normal Spleen: Normal. Small splenule. Pancreas: Normal Adrenals: Normal Kidneys: Normal. Bladder: Normal. Pelvic phleboliths are seen. Reproductive Organs: Normal Bowel: Stomach is normal. Small bowel is normal. The cecum is located left of midline. Submucosal fatty infiltration of the ascending colon. The remainder of the colon is unremarkable. Appendix: Normal Lymph nodes: None appear enlarged Vasculature: Mild atherosclerotic plaque right common iliac Peritoneum / Retroperitoneum: No free air, free fluid or mass. Bones: Unremarkable CT/Abdomen/Pelvis without Cont IMPRESSION: 1. Simple cysts in the liver. No follow-up required. 2. No renal calculus or collecting system dilation. 3. Normal appendix. Submucosal fatty infiltration of the ascending colon. No n-specific but can be seen with chronic inflammatory processes. No acute abnormality. Reading Location: [id number]
[2025-01-23] MEDS: 0.9% Normal Saline (1000mL) 1,000 ML 1000 ML IV (15:22)
[2025-01-23] MEDS: DiphenhydrAMINE 50 MG/ML Syringe 25 MG IV (15:23)
[2025-01-23 15:36] LABS: Hematocrit 41.4 % (37-47); Hemoglobin 14.1 g/dL (12.0-15.0); Immature Granulocytes Count 0.010 X10^3/uL (0.0-0.0); Mean Corp Hgb Conc 34.1 g/dL (32-36); Mean Corpuscular Volume 82.8 fL (81-99); Mean Platelet Vol. 10.6 fl (6.2-12.0); NRBC Flagged by Analyzer 0 % (0-5); Platelet Count 205 K/mm3 (150-450); RBC Distribution Width CV 13.2 % (11.6-14.6); RBC Distribution Width SD 39.8 fl (35.1-43.9); Red Blood Count 5.00 M/mm3 (4.2-5.4); White Blood Count 5.1 K/mm3 (4.4-11.0)
[2025-01-23 15:57] LABS: Anion Gap 11 (5-15); BUN 8 mg/dL (4-19); BUN/Creat Ratio 8.4 RATIO (10-20); Calcium,Total 9.5 mg/dL (7.6-11.0); Carbon Dioxide 25.5 mmol/L (21.0-32.0); Chloride 105 mmol/L (98-108); Estimated Creatinine Clearance 71.42 ml/min (50-250); Glucose 110 mg/dL (70-99); Potassium 3.9 mmol/L (3.3-5.1)
--- NOTE | 2025-01-23 16:23 | EX.ED.VIS.HA ---
HPI History of Present Illness Chief Complaint: Cold Sx Narrative Narrative: Patient is a 54-year-old female presenting to the emergency department for multiple complaints including a migraine, facial swelling/pain, urinary symptoms and flank pain. Patient has a past medical history of pseudoseizures, fibromyalgia, anxiety, PTSD. Patient states that for the past few months she has felt unwell. States she has a history of migraines and 2 days ago she developed a gradual onset headache that she states feels worse than her normal migraine. She endorses photophobia with nausea which is typical of her migraines. States that she usually can take Excedrin, sleep caffeine and her migraine will improve however this 1 did not. She denies any neck pain or fevers. She states she also developed some midface swelling bilaterally 2 days ago with facial pain. She endorses bilateral flank pain that has been going on for months as well as increased urgency and frequency of her urination. She denies any dysuria or hematuria. Denies any abdominal pain. Denies any recent falls or head trauma. Denies any history of blood clots. [facility] Medical History Fibromyalgia Rheumatoid arthritis Scoliosis Disassociation disorder Anxiety Asthma PTSD (post-traumatic stress disorder) Home Medications ?Medication ?Instructions ?Recorded ?Last Taken ?Type mirtazapine 15 mg tablet 15 mg PO QHS PRN PRN Sleep 08/18/16 01/03/17 History clonazepam 0.5 mg tablet (Klonopin) 0.5 mg PO BID ANXIETY 01/04/17 01/03/17 History sertraline 50 mg tablet 50 mg PO DAILY MENTAL HEALTH 01/04/17 01/03/17 History meloxicam 15 mg tablet 15 mg PO DAILY #10 tabs 04/13/22 Unknown Rx ondansetron 4 mg disintegrating 4 mg PO Q8H PRN nausea and 07/11/22 Unknown Rx tablet vomiting 5 days #15 tabs testosterone 1 % (50 mg/5 gram) 07/11/22 Unknown History transdermal gel packet Held on 10/02/23. Instructions: not taking at this time gabapentin 100 mg capsule 100 mg PO BID 10/02/23 Unknown History mirabegron 50 mg tablet,extended 50 mg PO DAILY 10/02/23 Unknown History release 24 hr (Myrbetriq) ciprofloxacin HCl 500 mg tablet 500 mg PO BID #6 TABLETS 02/17/24 Unknown Rx Allergy/AdvReac Type Severity Reaction Status Date / Time carbamazepine (From Allergy NEEDS Verified 01/23/25 14:27 Carbatrol) FOLLOW-UP cyclobenzaprine HCl (From Allergy Other Verified 01/23/25 14:27 Flexeril) escitalopram oxalate (From Allergy Other Verified 01/23/25 14:27 Lexapro) gabapentin Allergy Other Verified 01/23/25 14:27 hydromorphone HCl (From Allergy Other Verified 01/23/25 14:27 Dilaudid) hydroxyzine HCl (From Allergy Other Verified 01/23/25 14:27 Vistaril) hydroxyzine pamoate (From Allergy Other Verified 01/23/25 14:27 Vistaril) Influenza Virus Vaccines Allergy Hives Verified 01/23/25 14:27 lactose Allergy Other Verified 01/23/25 14:27 meperidine HCl (From Demerol) Allergy Other Verified 01/23/25 14:27 naproxen (From Naprosyn) Allergy Other Verified 01/23/25 14:27 orphenadrine (From Norflex) Allergy NEEDS Verified 01/23/25 14:27 FOLLOW-UP paroxetine mesylate (From Allergy Other Verified 01/23/25 14:27 PEXEVA) quetiapine fumarate (From Allergy Other Verified 01/23/25 14:27 Seroquel) sulfamethoxazole (From Allergy Other Verified 01/23/25 14:27 Bactrim) trimethoprim (From Bactrim) Allergy Other Verified 01/23/25 14:27 venlafaxine HCl (From Allergy Other Verified 01/23/25 14:27 Effexor) venom-honey bee (bee venom Allergy Other Verified 01/23/25 14:27 (honey bee)) Surgical History History of total hysterectomy Social History household members: significant other Smoking Status: Former smoker alcohol intake: current alcohol intake frequency: holidays/special occasions only substance use type: does not use ROS ROS ED ROS Narrative See HPI EXAM Physical Exam Narrative Exam Narrative: Vital signs: Reviewed General: Alert and oriented x 3. No acute distress. Well-appearing, nontoxic. Has sunglasses on on my initial evaluation. HEENT: Head is normocephalic and atraumatic, Pupils equal round and reactive. No conjunctival injection. No proptosis. Extraocular movements intact. Bilateral sinuses are tender to palpation. Nares are patent. Oropharynx and throat exams normal. Neck: Supple without lymphadenopathy nontender. Normal active range of motion of neck, no nuchal rigidity. Cardiovascular: Regular rate and rhythm, no murmurs. No rubs or gallops. Normal S1 and S2 Respiratory: Clear to auscultation bilaterally. No wheezes, rales, rhonchi Abdominal: Soft and nontender. Normal bowel sounds. No guarding or rebound. Nonsurgical abdomen. Bilateral CVA tenderness to palpation Back: No midline cervical, thoracic or lumbar spinal tenderness to palpation. No step-offs or deformities Extremities: No tenderness. No bruising. Normal range of motion. Normal sensation. Skin: No rash or redness. Neurological: Cranial nerves II through XII are grossly intact. Normal strength and sensation. Normal cerebellar function The rest of the physical exam is unremarkable Const Vital Signs: 01/23/25 14:25 01/23/25 16:25 Temperature 98.8 F Temperature Source Oral Pulse Rate 77 64 Respiratory Rate 16 16 Blood Pressure 110/81 H 114/81 H Blood Pressure Mean 90 92 Pulse Ox 97 99 Oxygen Delivery Method Room Air Room Air MDM MDM MDM Narrative Medical decision making narrative: Patient is a 54-year-old female presenting to the emergency department for multiple complaints as seen in [facility]. Patient was seen and examined. Vitals are stable. Patient resting in bed comfortably no acute distress. Differential includes but is not limited to: Migraine, dural venous thrombosis, sinus infection, pyelonephritis, urinary tract infection, URI Fluid bolus, toradol, reglan and benadryl given. Patient has no altered mental status, neurologic deficits, nuchal rigidity or fever I do not think she has encephalitis or meningitis. With the mild facial swelling, want to rule out the any abnormalities. Also want to rule out dural venous thrombosis. CBC with no leukocytosis and a normal hemoglobin. BMP with no significant abnormalities. Patient signed out to oncoming physician pending CT imaging. I anticipate discharge if imaging is negative with possible abx for sinusitis. History & Record Review Discussion w/independent historian: Patient Lab Data Attestation: I reviewed the patient's lab results. Labs: Laboratory Results - last 24 hr 01/23/25 15:15 WBC 5.1 RBC 5.00 Hgb 14.1 Hct 41.4 MCV 82.8 MCH 28.2 MCHC 34.1 RDW Std Deviation 39.8 RDW Coeff of Daniel 13.2 Plt Count 205 MPV 10.6 Immature Gran % (Auto) 0.200 Neut % (Auto) 57.6 Lymph % (Auto) 34.3 [place] % (Auto) 5.7 Eos % (Auto) 1.8 Baso % (Auto) 0.4 Absolute Neuts (auto) 2.9 Absolute Lymphs (auto) 1.74 Nucleated RBC % 0 Sodium 142 Potassium 3.9 Chloride 105 Carbon Dioxide 25.5 Anion Gap 11 BUN 8 Creatinine 0.94 Estim Creat Clear Calc 71.42 Est GFR (MDRD) Non-Af 72 BUN/Creatinine Ratio 8.4 L Glucose 110 H Calcium 9.5 Radiography Diagnostic Testing: Clinical Impression(s) from Imaging Studies Abdomen/Pelvis CT 01/23/25 15:05 IMPRESSION: 1. Simple cysts in the liver. No follow-up required. 2. No renal calculus or collecting system dilation. 3. Normal appendix. Submucosal fatty infiltration of the ascending colon. Non-specific but can be seen with chronic inflammatory processes. No acute abnormality. Reading Location: [facility] Discharge Plan Triage Chief Complaint: Cold Sx Other Complaint: Headache ED Provider: Felipa Estrada Dx/Rx/DC Orders Clinical Impression: Headache, Facial swelling, Flank pain, Urinary urgency Instructions: ED Flank Pain with Uncertain Cause, ED Headache Unspecified Prescriptions: No Action mirtazapine 15 MG tablet 15 mg PO QHS PRN PRN (Reason: Sleep) Patient Comments: clonazepam [Klonopin] 0.5 MG tablet 0.5 mg PO BID sertraline 50 MG tablet 50 mg PO DAILY meloxicam 15 mg tablet 15 mg PO DAILY Qty: 10 0RF testosterone 1 % (50 mg/5 gram) gel in packet ondansetron 4 mg tablet,disintegrating 4 mg PO Q8H PRN (Reason: nausea and vomiting) 5 Days Qty: 15 0RF gabapentin 100 mg capsule 100 mg PO BID mirabegron [Myrbetriq] 50 mg tablet extended release 24 hr 50 mg PO DAILY ciprofloxacin HCl 500 mg tablet 500 mg PO BID Qty: 6 0RF Primary Care Provider: Silvio Lira Referrals: Silvio Lira MD [Primary Care Provider, Internal Medicine] - As soon as possible Activity Restrictions/Additional Instructions: Your evaluation in the Emergency Department did not reveal any acute reason for admission. However, I want to emphasize that you may be early in the course of a disease process or illness even if it is not present. For this reason you should follow-up within 24 hours for reevaluation with either your primary care physician or if necessary back here in the Emergency Department. You should return to the Emergency Department immediately if your symptoms worsen or new symptoms develop. Print Language: Spanish
[2025-01-23 16:25] VITALS: BP 114/81; PULSE 64; RESP 16; O2SAT 99
[2025-01-23 16:43] LABS: Mucous, Urine 0 SEEN /hpf (<or=2+)
[2025-01-23 16:44] LABS: Color, Urine Yellow (Yellow); Glucose, Dipstick Normal (Normal); Ketone-Dipstick Negative (Negative); Leukocyte Esterase-Dipstick 25 /ul (Negative); Nitrite-Dipstick Negative (Negative); Occult Blood-Urine 10 /ul (Negative); Protein-Dipstick 15 mg/dl (Negative); Specific Gravity, Urine 1.015 (1.002-1.030); Urine Bilirubin Dipstick Negative (Negative)
[2025-01-23 17:10] LABS: Red Blood Cells-Urine 0-5 SEEN /hpf (0-5); Squamous Epithelial Cells - UA 0-5 SEEN /hpf (5-10); Transitional Epithelial - Ur 0-5 SEEN /hpf (0-5)
[2025-01-23 17:32] VITALS: BP 114/81; PULSE 64; RESP 16; TEMP 37.1; O2SAT 99
== END 2025-01-23 17:34 | disposition home or self-care (01) ==
PROVIDERS: Emergency Provider Student in an Organized Health Care Education/Training Program; PCP Internal Medicine Adolescent Medicine; Visit Provider Student in an Organized Health Care Education/Training Program
DX: R51.9 Headache, unspecified (principal); F41.9 Anxiety disorder, unspecified; R10.A0 Flank pain, unspecified side; R39.15 Urgency of urination; R22.0 Localized swelling, mass and lump, head; Z87.891 Personal history of nicotine dependence; Z79.899 Other long term (current) drug therapy
CPT/HCPCS: 70460; 74176; 80048; 81001; 85025; 87631; 96361; 96374; 96375; 99285; Q9967